=== PATIENT | male | born 1985 | race Caucasian/White ===

== ENCOUNTER → 2020-08-13 15:19 | Outpatient (BNVA) | payer OTHER, SELFPAY | PROVIDERS: PCP Nurse Practitioner Family; Visit Provider Nurse Practitioner Family | DX: Z95.2 Presence of prosthetic heart valve (principal); Z51.81 Encounter for therapeutic drug level monitoring; Z79.01 Long term (current) use of anticoagulants | CPT/HCPCS: 85610; 99212 ==

== ENCOUNTER → 2020-08-27 15:27 | Outpatient (BNVA) | payer OTHER, SELFPAY | PROVIDERS: PCP Family Medicine; Visit Provider Internal Medicine | DX: Z95.2 Presence of prosthetic heart valve (principal); Z51.81 Encounter for therapeutic drug level monitoring; Z79.01 Long term (current) use of anticoagulants | CPT/HCPCS: 85610; 99211 ==

== ENCOUNTER → 2020-09-17 15:51 | Outpatient (BNVA) | payer OTHER, SELFPAY | PROVIDERS: PCP Nurse Practitioner Family; Visit Provider Internal Medicine | DX: Z95.2 Presence of prosthetic heart valve (principal); Z51.81 Encounter for therapeutic drug level monitoring; Z79.01 Long term (current) use of anticoagulants | CPT/HCPCS: 85610; 99211 ==

== ENCOUNTER → 2020-10-08 16:06 | Outpatient (BNVA) | payer OTHER, SELFPAY | PROVIDERS: PCP Nurse Practitioner Family; Visit Provider Internal Medicine | DX: Z95.2 Presence of prosthetic heart valve (principal); Z51.81 Encounter for therapeutic drug level monitoring; Z79.01 Long term (current) use of anticoagulants | CPT/HCPCS: 85610; 99211 ==

== ENCOUNTER → 2020-10-22 15:44 | Outpatient (BNVA) | payer OTHER, SELFPAY | PROVIDERS: PCP Nurse Practitioner Family; Visit Provider Internal Medicine | DX: Z95.2 Presence of prosthetic heart valve (principal); Z51.81 Encounter for therapeutic drug level monitoring; Z79.01 Long term (current) use of anticoagulants | CPT/HCPCS: 85610; 99211 ==

== ENCOUNTER → 2020-10-29 16:03 | Outpatient (BNVA) | payer OTHER, SELFPAY | PROVIDERS: PCP Nurse Practitioner Family; Visit Provider Internal Medicine | DX: Z95.2 Presence of prosthetic heart valve (principal); Z79.01 Long term (current) use of anticoagulants; Z51.81 Encounter for therapeutic drug level monitoring | CPT/HCPCS: 85610; 99211 ==

== ENCOUNTER → 2020-10-30 14:05 | Outpatient (BNVA) | payer OTHER, SELFPAY | PROVIDERS: PCP Nurse Practitioner Family; Visit Provider Internal Medicine | DX: Z95.2 Presence of prosthetic heart valve (principal); Z79.01 Long term (current) use of anticoagulants; Z51.81 Encounter for therapeutic drug level monitoring | CPT/HCPCS: 85610; 99211 ==

== ENCOUNTER → 2020-11-04 16:10 | Outpatient (BNVA) | payer OTHER, SELFPAY | PROVIDERS: PCP Nurse Practitioner Family; Visit Provider Internal Medicine | DX: Z95.2 Presence of prosthetic heart valve (principal); Z51.81 Encounter for therapeutic drug level monitoring; Z79.01 Long term (current) use of anticoagulants | CPT/HCPCS: 85610; 99211 ==

== ENCOUNTER → 2020-11-06 15:34 | Outpatient (BNVA) | payer OTHER, SELFPAY | PROVIDERS: PCP Nurse Practitioner Family; Visit Provider Internal Medicine | DX: Z95.2 Presence of prosthetic heart valve (principal); Z51.81 Encounter for therapeutic drug level monitoring; Z79.01 Long term (current) use of anticoagulants | CPT/HCPCS: 85610; 99211 ==

== ENCOUNTER → 2020-11-10 15:48 | Outpatient (BNVA) | payer OTHER, SELFPAY | PROVIDERS: PCP Nurse Practitioner Family; Visit Provider Internal Medicine | DX: Z95.2 Presence of prosthetic heart valve (principal); Z51.81 Encounter for therapeutic drug level monitoring; Z79.01 Long term (current) use of anticoagulants | CPT/HCPCS: 85610; 99211 ==

== ENCOUNTER → 2020-11-13 14:35 | Outpatient (BNVA) | payer OTHER, SELFPAY | PROVIDERS: PCP Nurse Practitioner Family; Visit Provider Internal Medicine | DX: Z95.2 Presence of prosthetic heart valve (principal); Z79.01 Long term (current) use of anticoagulants; Z51.81 Encounter for therapeutic drug level monitoring | CPT/HCPCS: 85610; 99211 ==

== ENCOUNTER → 2020-11-19 15:38 | Outpatient (BNVA) | payer OTHER, SELFPAY | PROVIDERS: PCP Nurse Practitioner Family; Visit Provider Internal Medicine | DX: Z95.2 Presence of prosthetic heart valve (principal); Z51.81 Encounter for therapeutic drug level monitoring; Z79.01 Long term (current) use of anticoagulants | CPT/HCPCS: 85610; 99211 ==

== ENCOUNTER → 2020-12-03 15:11 | Outpatient (BNVA) | payer OTHER, SELFPAY | PROVIDERS: PCP Nurse Practitioner Family; Visit Provider Internal Medicine | DX: Z95.2 Presence of prosthetic heart valve (principal); Z51.81 Encounter for therapeutic drug level monitoring; Z79.01 Long term (current) use of anticoagulants | CPT/HCPCS: 85610; 99211 ==

== ENCOUNTER → 2020-12-25 15:37 | Outpatient (BNVA) | payer OTHER, SELFPAY | PROVIDERS: PCP Nurse Practitioner Family; Visit Provider Internal Medicine | DX: Z95.2 Presence of prosthetic heart valve (principal); Z51.81 Encounter for therapeutic drug level monitoring; Z79.01 Long term (current) use of anticoagulants | CPT/HCPCS: 85610; 99211 ==

== ENCOUNTER → 2021-01-12 15:37 | Outpatient (BNVA) | payer OTHER, SELFPAY | PROVIDERS: PCP Nurse Practitioner Family; Visit Provider Internal Medicine | DX: Z95.2 Presence of prosthetic heart valve (principal); Z51.81 Encounter for therapeutic drug level monitoring; Z79.01 Long term (current) use of anticoagulants | CPT/HCPCS: 85610; 99211 ==

== ENCOUNTER → 2021-01-28 16:09 | Outpatient (BNVA) | payer OTHER, SELFPAY | PROVIDERS: PCP Nurse Practitioner Family; Visit Provider Internal Medicine | DX: Z95.2 Presence of prosthetic heart valve (principal); Z51.81 Encounter for therapeutic drug level monitoring; Z79.01 Long term (current) use of anticoagulants | CPT/HCPCS: 85610; 99211 ==

== ENCOUNTER → 2021-02-11 15:46 | Outpatient (BNVA) | payer OTHER, SELFPAY | PROVIDERS: PCP Nurse Practitioner Family; Visit Provider Internal Medicine | DX: Z95.2 Presence of prosthetic heart valve (principal); Z51.81 Encounter for therapeutic drug level monitoring; Z79.01 Long term (current) use of anticoagulants | CPT/HCPCS: 85610; 99211 ==

== ENCOUNTER → 2021-02-25 15:45 | Outpatient (BNVA) | payer OTHER, SELFPAY | PROVIDERS: PCP Nurse Practitioner Family; Visit Provider Internal Medicine | DX: Z95.2 Presence of prosthetic heart valve (principal); Z79.01 Long term (current) use of anticoagulants; Z51.81 Encounter for therapeutic drug level monitoring | CPT/HCPCS: 85610; 99211 ==

== ENCOUNTER → 2021-03-12 15:45 | Outpatient (BNVA) | payer OTHER, SELFPAY | PROVIDERS: PCP Nurse Practitioner Family; Visit Provider Internal Medicine | DX: Z95.2 Presence of prosthetic heart valve (principal); Z79.01 Long term (current) use of anticoagulants; Z51.81 Encounter for therapeutic drug level monitoring | CPT/HCPCS: 85610; 99211 ==

== ENCOUNTER → 2021-03-17 16:24 | Outpatient (BNVA) | payer OTHER, SELFPAY | PROVIDERS: PCP Internal Medicine; Visit Provider Internal Medicine | DX: Z95.2 Presence of prosthetic heart valve (principal); Z51.81 Encounter for therapeutic drug level monitoring; Z79.01 Long term (current) use of anticoagulants | CPT/HCPCS: 85610; 99211 ==

== ENCOUNTER → 2021-03-26 15:48 | Outpatient (BNVA) | payer OTHER, SELFPAY | PROVIDERS: PCP Internal Medicine; Visit Provider Internal Medicine | DX: Z95.2 Presence of prosthetic heart valve (principal); Z51.81 Encounter for therapeutic drug level monitoring; Z79.01 Long term (current) use of anticoagulants | CPT/HCPCS: 85610; 99211 ==

== ENCOUNTER → 2021-04-08 15:12 | Outpatient (BNVA) | payer OTHER, SELFPAY | PROVIDERS: PCP Internal Medicine; Visit Provider Internal Medicine | DX: Z95.2 Presence of prosthetic heart valve (principal); Z51.81 Encounter for therapeutic drug level monitoring; Z79.01 Long term (current) use of anticoagulants | CPT/HCPCS: 85610; 99211 ==

== ENCOUNTER → 2021-04-22 16:12 | Outpatient (BNVA) | payer OTHER, SELFPAY | PROVIDERS: PCP Internal Medicine; Visit Provider Internal Medicine | DX: Z95.2 Presence of prosthetic heart valve (principal); Z51.81 Encounter for therapeutic drug level monitoring; Z79.01 Long term (current) use of anticoagulants | CPT/HCPCS: 85610; 99211 ==

== ENCOUNTER → 2021-05-06 16:08 | Outpatient (BNVA) | payer OTHER, SELFPAY | PROVIDERS: PCP Internal Medicine; Visit Provider Internal Medicine | DX: Z95.2 Presence of prosthetic heart valve (principal); Z51.81 Encounter for therapeutic drug level monitoring; Z79.01 Long term (current) use of anticoagulants | CPT/HCPCS: 85610; 99211 ==

== ENCOUNTER → 2021-05-13 15:51 | Outpatient (BNVA) | payer OTHER, SELFPAY | PROVIDERS: PCP Nurse Practitioner Family; Visit Provider Internal Medicine | DX: Z95.2 Presence of prosthetic heart valve (principal); Z51.81 Encounter for therapeutic drug level monitoring; Z79.01 Long term (current) use of anticoagulants | CPT/HCPCS: 85610; 99211 ==

== ENCOUNTER → 2021-05-20 15:59 | Outpatient (BNVA) | payer OTHER, SELFPAY | PROVIDERS: PCP Internal Medicine; Visit Provider Internal Medicine | DX: Z95.2 Presence of prosthetic heart valve (principal); Z51.81 Encounter for therapeutic drug level monitoring; Z79.01 Long term (current) use of anticoagulants | CPT/HCPCS: 85610; 99211 ==

== ENCOUNTER 2021-05-24 21:44 | Inpatient (IN) | payer OTHER, SELFPAY ==
--- NOTE | ~2021-05-24 | XR_ITS ---
EXAMINATION: XR SHOULDER, RIGHT CLINICAL INFORMATION: Fall. Deformity. Pain. COMPARISON: None TECHNIQUE: AP, Grashey, and scapular Y views of the right shoulder. FINDINGS: Acute, mildly displaced fracture of the greater tuberosity with a resultant fracture gap measuring up to 0.9 cm. The fracture contacts the periphery of the humeral head articular surface. No dislocation. No joint space narrowing or marginal osteophytes. No osseous erosion. No abnormal soft tissue calcification. XR/XR shoulder RT min 2V IMPRESSION: Mildly displaced proximal humeral fracture through the greater tuberosity.
--- NOTE | ~2021-05-24 | CT_ITS ---
EXAMINATION: CT SHOULDER WITHOUT CONTRAST, RIGHT CLINICAL INFORMATION: Humeral head fracture. COMPARISON: Right shoulder radiographs done earlier the same day. TECHNIQUE: Contiguous axial CT images of the right shoulder were obtained without contrast. Sagittal and coronal reformats were provided and reviewed. This CT examination was performed using dose optimization techniques as appropriate, variously including the following: *Automated exposure control *Adjustment of mA and/or kV according to patient size (this includes techniques or standardized protocols for targeted exams where dose is matched to indication/reason for exam; i.e. extremities or head) *Use of iterative reconstruction technique DLP: 352 mGy-cm FINDINGS: There is a comminuted humeral head fracture with a dominant oblique component through the greater tuberosity. The largest resultant fracture fragment measures up to 5.4 cm in craniocaudal dimension. There are multiple additional fracture fragments both along the ventral surface as well as the posterior surface. An additional oblique component is seen posteroinferiorly contacting the dorsal aspect of the humeral cortex. The superior most aspect of the fracture line contacts the peripheral humeral head articular surface. There is an additional, nondisplaced predominantly transverse fracture through the humeral neck. No dislocation. No joint space narrowing or marginal osteophytes. No osseous erosion. Os acromiale with mild degenerative change. Fxiow-fl-gllubsny glenohumeral joint effusion with adjacent soft tissue swelling. The muscles and tendons are grossly intact, however, evaluation is limited on CT examination. The visualized right lung is clear. CT/CT shoulder RT wo con IMPRESSION: 1. Comminuted humeral head fracture with a dominant oblique component through the greater tuberosity with multiple adjacent small fracture fragments. The superior aspect of the fracture line contacts the periphery of the humeral head articular surface. 2. Additional nondisplaced probably transverse fracture through the humeral neck. 3. Vvsrt-ju-piggqxqr glenohumeral joint effusion and surrounding soft tissue swelling. 4. Os acromiale.
[2021-05-24 21:57] VITALS: BP 148/100; BP 160/98; PULSE 101; PULSE 91; RESP 20; TEMP 36.5; O2SAT 98; BMI 28.7
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
[2021-05-24] MEDS: Ketorolac Tromethamine 15 MG/ML VIAL IM (22:03)
[2021-05-24] MEDS: Acetaminophen 325 MG TABLET 975 MG PO (22:03)
[2021-05-24 22:29] LABS: Basophils Percent Auto 0.2 % (0-2); Eosinophils Absolute Auto 0.1 X10*3/uL (0.0-0.4); Eosinophils Percent Auto 0.9 % (0-4); Hematocrit 44.9 % (42-52); Hemoglobin 14.2 g/dl (14.0-18.0); Imm Gran Abs Auto 0.02 X10*3/uL (0.00-0.03); Imm Gran Pct Auto 0.3 % (0.0-0.4); Lymphocytes Absolute Auto 1.5 X10*3/uL (1.2-4.9); Lymphocytes Percent Auto 23.1 % (20-40); MANUAL DIFF FLAG NO; Mean Corpuscular HGB Conc 31.6 g/dl (31.0-36.0); Mean Corpuscular Hemoglobin 26.3 pg (27.0-33.0); Mean Corpuscular Volume 83.1 fL (80-98); Mean Platelet Volume 11.1 fL (9.4-12.4); Monocytes Absolute Auto 0.7 X10*3/uL (0.1-1.2); Monocytes Percent Auto 11.3 % (2-11); Neutrophils Absolute Auto 4.2 X10*3/uL (2.0-8.3); Neutrophils Percent Auto 64.2 % (45-73); Platelet Count 297 X10*3/uL (160-400); Red Cell Distribution Width 14.3 % (11.0-16.0); White Blood Count 6.6 X10*3/uL (4.8-10.8)
[2021-05-24 22:35] LABS: INTERNATIONAL NORM RATIO 2.5 (0.9-1.1)
[2021-05-24 23:01] LABS: Alanine Aminotransferase 89 U/L (0-40); Albumin Level 4.4 g/dL (3.5-5.0); Alkaline Phosphatase 104 U/L (39-117); Anion Gap 13 (12-20); Aspartate Amino Transferase 62 U/L (5-37); Bilirubin Total 0.4 mg/dL (0.0-1.0); Blood Urea Nitrogen 13 mg/dL (9-16); Calcium 9.4 mg/dL (8.4-10.2); Carbon Dioxide 28 mmol/L (22-29); Chloride 103 mmol/L (96-108); Creatinine Clr Calc Pharmacy 136.1; Estimated Glomerular Filt Rate > 60; Glucose Random 126 mg/dL (60-115); Potassium 3.7 mmol/L (3.3-5.1); Sodium 140 mmol/L (135-145); Total Protein 7.9 g/dL (6.5-8.0)
--- NOTE | 2021-05-24 23:22 | PC.NURSE ---
PT GUARDING HIS RIGHT ARM, UPPER ARM AND SHOULDER PAIN. PT HAS ABRASIONS ON RIGHT CHEST. PT DENIES STRIKING HIS HEAD. PT IS TAKING COUMADIN FOR A VALVE REPLACEMENT. MD INFORMED PT OF THE FRACTURE, AND PLANS FOR ADMISSION.
[2021-05-24] MEDS: hydrOXYzine HCL 25 MG TABLET PO (23:36)
[2021-05-24 23:54] LABS: COVID-19 Test Negative (Negative)
[2021-05-25] VITALS (8 sets, daily range): BP systolic 115–151; BP diastolic 62–88; PULSE 73–92; RESP 14–19; TEMP 35.9–36.4; O2SAT 95–100; BMI 30.8
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
[2021-05-25] MEDS: Buprenorphine/Naloxone 4/1 mg FILM 1 FILM SUBLINGUAL ×3 (02:18→20:26)
--- NOTE | 2021-05-25 02:23 | PC.NURSE ---
pt has order for regular diet, pt had 2 donuts and orange juice.
--- NOTE | 2021-05-25 04:05 | PC.NURSE ---
pt tore suboxone dose in half, wanted to save the other hald for bedtime. pt transported upstairs. pt then reports that he can't find the other half. checked pt's er room and trash, foil package not located.
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
[2021-05-25] MEDS: Ketorolac Tromethamine 15 MG/ML VIAL IVPUSH (05:40)
[2021-05-25 07:52] LABS: INTERNATIONAL NORM RATIO 2.7 (0.9-1.1); Prothrombin Time 31.5 SEC (9.9-13.0)
--- NOTE | 2021-05-25 08:26 | P.PNOP_ITS ---
Subjective Subjective Interval history: Patient is s/p right shoulder proximal humerus fracture. He is resting comfortably in bed. No overnight events. Pain is managed. Physical Exam Vital Signs: Vital Signs: Last Vital Signs Temp 97.5 F 05/25/21 07:12 Pulse 86 05/25/21 07:12 Resp 17 05/25/21 07:12 BP 134/62 05/25/21 07:12 Pulse Ox 96 05/25/21 07:12 Body Mass Index 30.8 Const: General: cooperative, healthy appearing and no acute distress Resp: Effort & Inspection: normal respiratory effort and able to speak in complete sentences Cardio: Rate: regular rate Peripheral pulses: Peripheral pulses 2+ throughout GI: Palpation (GI): Soft to palpation Skin: Lesions: no lesions Rashes: no rashes Extrem: Other: Right upper extremity able to flex and extend elbow, wrist, and digits. Able to abduct, adduct, finger cross, ok sign, and thumbs up without difficulties. Radial pulse intact. Sensation intact. Progress Note: A&P Assessment and plan (1) Fracture of proximal end of humerus: Status: Acute Assessment and Plan: s/p right shoulder proximal humerus fracture Manage conservatively with sling. Will see in our office as out patient and cleared for d/c from ortho prospective. Fall Risk Details Current Medications: Current Medications Generic Name Dose Route Start Last Admin Trade Name Freq PRN Reason Stop Dose Admin Acetaminophen 650 mg 05/25/21 00:57 Acetaminophen 325 Mg Tablet PO Q6H PRN Pain, Mild (Pain Scale 1-3) Buprenorphine/Naloxone 1 film 05/25/21 01:15 05/25/21 02:18 Buprenorphine/Naloxone 4/1 Mg Film SUBLINGUAL 1 film BID [facility] Administration Docusate Sodium 100 mg 05/25/21 00:57 Docusate Sodium 100 Mg Capsule PO DAILY PRN Constipation Fluticasone Propionate 1 spray 05/25/21 09:00 Fluticasone Propionate Nasal 16 Gm [place] NOSTRIL-B BID [facility] Hydroxyzine HCl 25 mg 05/25/21 00:47 Hydroxyzine Hcl 25 Mg Tablet PO TID PRN anxiety Ondansetron HCl 4 mg 05/25/21 00:57 Ondansetron Hcl 4 Mg/2 Ml Vial IVPUSH Q8H PRN Nausea and Vomiting Sodium Chloride 3 ml 05/25/21 08:00 0.9 % Sodium Chloride Flush 3 Ml Syringe IVFLUSH QSHIFT [facility] Trazodone HCl 50 mg 05/25/21 21:00 Trazodone Hcl 50 Mg Tablet PO BEDTIME [facility] Venlafaxine HCl 75 mg 05/25/21 09:00 Venlafaxine Hcl Er 75 Mg Cap.Er.24h PO DAILY [facility] Vitamin D 50 mcg 05/25/21 09:00 Cholecalciferol (Vitamin D3) 25 Mcg Tablet PO DAILY [facility] Warfarin Sodium 7.5 mg 05/25/21 18:00 Warfarin Sodium 7.5 Mg Tablet PO DAILY@1800 [facility] Time Spent With Patient Time: Total time spent is greater than 50% in coordination of care (as documented) at patient's floor/unit and/or counseling patient: Time with patient: less than 15 minutes Procedures Date of Service Date of Service: 05/26/21 Quality Stroke Does the patient have a stroke diagnosis?: No VTE Prior VTE?: No VTE Risk Level:: Medical - moderate - high VTE Device Contraindication: Treatment Not Indicated VTE Drug Contraindication: N/A - Med Ordered
[2021-05-25] MEDS: Cholecalciferol (Vitamin D3) 25 MCG TABLET 50 MCG PO (09:04)
[2021-05-25] MEDS: 0.9 % Sodium Chloride Flush 3 ML SYRINGE IVFLUSH (09:04)
[2021-05-25] MEDS: hydrOXYzine HCL 25 MG TABLET PO (09:04)
[2021-05-25] MEDS: Acetaminophen 325 MG TABLET 650 MG PO ×2 (09:05→20:26)
[2021-05-25] MEDS: Venlafaxine HCl ER 75 MG CAP.ER.24H PO (09:08)
[2021-05-25] MEDS: HYDROmorphone HCl 1 MG/ML SYRINGE IVPUSH ×2 (10:21→18:29)
--- NOTE | 2021-05-25 10:21 | MHC.RECOVRN ---
T/w met with pt in 370 to discuss pain management while on Suboxone. Pt reports last dose of Suboxone at 2 am, 3/4 of a 4 mg film. Prior to that, pt had taken 4 mg at 1600 on 05/25. Pt reports being prescribed Suboxone for 7-8 years. Pt reports being prescribed 8 mg daily (taken as 4 mg in am, 2 mg at dinner, 2 mg at bedtime) and taking it consistently. Pt concerned about precipitated withdrawal. T/w assured pt that since he has been taking his Suboxone consistently, precipitated withdrawal would not occur. Case discussed with Mariya Gandhi APRN.
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
--- NOTE | 2021-05-25 12:30 | MHC.CM.PN ---
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 PT REPORTS HE DOES NOT CURRENTLY HAVE SERVICES OTHER THAN A [facility]. PT DOES NOT HAVE A HCP. HE DID NOT WANT TO COMPLETE ONE TODAY BUT DID ASK FOR MORE INFORMATION. INFO AND DOCUMENT PROVIDED. PT CONFIRMS HIS PCP IS PACHECO HUNG. IMM DELIVERED CURRENTLY DC PLAN IS STILL TBD BY PT EVAL TRANSPORTATION TBD BY DISPO
--- NOTE | 2021-05-25 14:45 | PM.EVENT ---
Event Note Date of Service: 05/25/21 Event Note: Right proximal humerus fracture. No surgical intervention needed at this time. Will manage out patient conservatively. Formal note to follow.
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
[2021-05-25] MEDS: Warfarin Sodium 7.5 MG TABLET PO (17:52)
[2021-05-25] MEDS: ondansetron HCL 4 MG/2 ML VIAL IVPUSH (17:52)
[2021-05-25] MEDS: Fluticasone Propionate Nasal 16 GM SPRAY 1 SPRAY NOSTRIL-B (20:26)
[2021-05-25] MEDS: traZODone HCL 50 MG TABLET PO (20:26)
[2021-05-26] MEDS: 0.9 % Sodium Chloride Flush 3 ML SYRINGE IVFLUSH ×3 (01:17→17:43)
[2021-05-26] MEDS: HYDROmorphone HCl 1 MG/ML SYRINGE IVPUSH ×3 (02:48→17:35)
[2021-05-26] MEDS: ondansetron HCL 4 MG/2 ML VIAL IVPUSH ×2 (02:54→17:35)
[2021-05-26 04:00] VITALS: BP 123/66; PULSE 83; RESP 16; TEMP 36.7; O2SAT 95
[2021-05-26] MEDS: Acetaminophen 325 MG TABLET 650 MG PO ×2 (04:22→17:35)
[2021-05-26 07:21] VITALS: BP 144/89; PULSE 77; RESP 17; TEMP 36.2; O2SAT 95
[2021-05-26] MEDS: Buprenorphine/Naloxone 4/1 mg FILM 1 FILM SUBLINGUAL (07:53)
[2021-05-26] MEDS: Venlafaxine HCl ER 75 MG CAP.ER.24H PO (07:53)
[2021-05-26] MEDS: Cholecalciferol (Vitamin D3) 25 MCG TABLET 50 MCG PO (07:54)
--- NOTE | 2021-05-26 07:59 | PM.PNORT ---
Subjective Subjective Date of Service: 05/26/21 Interval history: Patient is s/p right shoulder proximal humerus fracture. He is resting comfortably in bed asleep. No overnight events. Pain is managed. Physical Exam Vital Signs: Vital Signs: Last Vital Signs Temp 97.1 F 05/26/21 07:21 Pulse 77 05/26/21 07:21 Resp 17 05/26/21 07:21 BP 144/89 H 05/26/21 07:21 Pulse Ox 95 05/26/21 07:21 Body Mass Index 30.8 Const: General: cooperative and no acute distress Orientation/consciousness: patient oriented x3 Resp: Effort & Inspection: normal respiratory effort and able to speak in complete sentences Cardio: Peripheral pulses: Peripheral pulses 2+ throughout Skin: General skin exam: no rashes or lesions noted Neuro: General: patient oriented x3 Progress Note: A&P Assessment and plan (1) Fracture of proximal end of humerus: Status: Acute Assessment and Plan: s/p right shoulder proximal humerus fracture Manage conservatively with abduction sling that patient will be placed in prior to discharge. Will see in our office as out patient and cleared for d/c from ortho prospective. Anticipate d/c today Fall Risk Details Current Medications: Current Medications Generic Name Dose Route Start Last Admin Trade Name Freq PRN Reason Stop Dose Admin Acetaminophen 650 mg 05/25/21 00:57 05/26/21 04:22 Acetaminophen 325 Mg Tablet PO 650 mg Q6H PRN Administration Pain, Mild (Pain Scale 1-3) Albuterol Sulfate 2 puff 05/25/21 12:19 Albuterol Sulfate 90 Mcg 8 Gm Inhaler INHALE Q2H PRN Dyspnea Buprenorphine/Naloxone 1 film 05/25/21 01:15 05/26/21 07:53 Buprenorphine/Naloxone 4/1 Mg Film SUBLINGUAL 1 film BID KERI Administration Docusate Sodium 100 mg 05/25/21 00:57 Docusate Sodium 100 Mg Capsule PO DAILY PRN Constipation Fluticasone Propionate 1 spray 05/25/21 09:00 05/25/21 20:26 Fluticasone Propionate Nasal 16 Gm [place] NOSTRIL-B 1 spray BID KERI Administration Hydromorphone HCl 1 mg 05/25/21 09:19 05/26/21 06:58 Hydromorphone Hcl 1 Mg/Ml Syringe IVPUSH 1 mg Q4H PRN Administration Pain, Severe (Pain Scale 7-10) Hydroxyzine HCl 25 mg 05/25/21 00:47 05/25/21 09:04 Hydroxyzine Hcl 25 Mg Tablet PO 25 mg TID PRN Administration anxiety Ondansetron HCl 4 mg 05/25/21 00:57 05/26/21 02:54 Ondansetron Hcl 4 Mg/2 Ml Vial IVPUSH 4 mg Q8H PRN Administration Nausea and Vomiting Sodium Chloride 3 ml 05/25/21 08:00 05/26/21 07:02 0.9 % Sodium Chloride Flush 3 Ml Syringe IVFLUSH 3 ml QSHIFT KERI Administration Trazodone HCl 50 mg 05/25/21 21:00 05/25/21 20:26 Trazodone Hcl 50 Mg Tablet PO 50 mg BEDTIME KERI Administration Venlafaxine HCl 75 mg 05/25/21 09:00 05/26/21 07:53 Venlafaxine Hcl Er 75 Mg Cap.Er.24h PO 75 mg DAILY KERI Administration Vitamin D 50 mcg 05/25/21 09:00 05/26/21 07:54 Cholecalciferol (Vitamin D3) 25 Mcg Tablet PO 50 mcg DAILY KERI Administration Warfarin Sodium 7.5 mg 05/25/21 18:00 05/25/21 17:52 Warfarin Sodium 7.5 Mg Tablet PO 7.5 mg SuMoTuThSa KERI Administration Warfarin Sodium 5 mg 05/27/21 12:38 Warfarin Sodium 5 Mg Tablet PO WEFR [facility] Time Spent With Patient Time: Total time spent is greater than 50% in coordination of care (as documented) at patient's floor/unit and/or counseling patient: Time with patient: less than 15 minutes Procedures Date of Service Date of Service: 05/26/21 Quality Stroke Does the patient have a stroke diagnosis?: No VTE Prior VTE?: No VTE Risk Level:: Medical - moderate - high VTE Device Contraindication: Treatment Not Indicated VTE Drug Contraindication: N/A - Med Ordered
[2021-05-26 08:24] LABS: MANUAL DIFF FLAG NO
[2021-05-26 08:27] LABS: Basophils Percent Auto 0.2 % (0-2); Eosinophils Absolute Auto 0.1 X10*3/uL (0.0-0.4); Eosinophils Percent Auto 1.1 % (0-4); Hematocrit 40.6 % (42-52); Hemoglobin 12.9 g/dl (14.0-18.0); Imm Gran Abs Auto 0.01 X10*3/uL (0.00-0.03); Imm Gran Pct Auto 0.2 % (0.0-0.4); Lymphocytes Percent Auto 15.7 % (20-40); Mean Corpuscular HGB Conc 31.8 g/dl (31.0-36.0); Mean Corpuscular Hemoglobin 26.5 pg (27.0-33.0); Mean Corpuscular Volume 83.4 fL (80-98); Mean Platelet Volume 11.3 fL (9.4-12.4); Monocytes Absolute Auto 0.8 X10*3/uL (0.1-1.2); Monocytes Percent Auto 12.4 % (2-11); Neutrophils Absolute Auto 4.3 X10*3/uL (2.0-8.3); Neutrophils Percent Auto 70.4 % (45-73); Platelet Count 257 X10*3/uL (160-400); Red Blood Count 4.87 X10*6/uL (4.60-5.80); Red Cell Distribution Width 14.3 % (11.0-16.0); White Blood Count 6.1 X10*3/uL (4.8-10.8)
[2021-05-26 08:33] LABS: INTERNATIONAL NORM RATIO 3.3 (0.9-1.1); Prothrombin Time 38.3 SEC (9.9-13.0)
[2021-05-26 08:50] LABS: Anion Gap 12 (12-20); Blood Urea Nitrogen 14 mg/dL (9-16); Carbon Dioxide 27 mmol/L (22-29); Chloride 102 mmol/L (96-108); Creatinine Clr Calc Pharmacy 169.7; Estimated Glomerular Filt Rate > 60; Glucose Random 101 mg/dL (60-115); Potassium 4.3 mmol/L (3.3-5.1); Sodium 137 mmol/L (135-145)
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
--- NOTE | 2021-05-26 09:00 | MHC.RECOVRN ---
T/w met with pt to sign JOSE MIGUEL for [employer] on [address] in [place] in order for t/w to update as far as pts admission and d/c plans. Pt planned d/c today, hospitalist to send oxycodone script x 4 days. T/w left message with Radha, awaiting call back.
--- NOTE | 2021-05-26 09:04 | MHC.CM.PN ---
PT DISCHARGING HOME SELF-CARE W/FOLLOW-UP W/DR [place] IN ONE WEEK & PRN OXYCODONE FOR PAIN, FAMILY FOR TRANSPORT
[2021-05-26 12:00] VITALS: BP 125/66; PULSE 78; RESP 18; TEMP 36.7; O2SAT 96
[2021-05-26 15:14] VITALS: BP 149/79; PULSE 83; RESP 14; TEMP 35.9; O2SAT 95
== END 2021-05-26 18:30 | disposition home or self-care (01) | DRG 563 ==
LOC: HO.ED 23:31 → HO.EDOVER 05-25 01:10 → HO.S3 05-25 03:19
PROVIDERS: Admitting Provider Internal Medicine; Emergency Provider Student in an Organized Health Care Education/Training Program; PCP Internal Medicine; Visit Provider Internal Medicine
DX: S42.251A Displaced fracture of greater tuberosity of right humerus, initial encounter for closed fracture (principal); F11.20 Opioid dependence, uncomplicated; F17.210 Nicotine dependence, cigarettes, uncomplicated; Z71.6 Tobacco abuse counseling; Z95.2 Presence of prosthetic heart valve; V19.9XXA Pedal cyclist (driver) (passenger) injured in unspecified traffic accident, initial encounter; Y93.9 Activity, unspecified; Y92.9 Unspecified place or not applicable; Y99.9 Unspecified external cause status; Z20.822 Contact with and (suspected) exposure to COVID-19; Z79.01 Long term (current) use of anticoagulants; Z79.51 Long term (current) use of inhaled steroids; Z79.899 Other long term (current) drug therapy
CPT/HCPCS: 36415; 73030; 73200; 80048; 80053; 85025; 85610; 87635; 99218; 99285; J1170; J1885; J2405

== ENCOUNTER 2021-06-02 13:09 | Outpatient (REF) | payer OTHER, SELFPAY ==
--- NOTE | ~2021-06-02 | XR_ITS ---
EXAMINATION: XR SHOULDER, RIGHT CLINICAL INFORMATION: Right shoulder COMPARISON: 05/24/2021 TECHNIQUE: Two views of the right shoulder. FINDINGS: I do not appreciate a significant change in alignment of the comminuted right proximal humeral fracture with dominant fracture fragment of the greater tuberosity. No definite periosteal new bone formation is identified and fracture lines are still evident. No dislocation is seen. No significant abnormality of the acromioclavicular joint is noted. XR/XR shoulder RT min 2V IMPRESSION: No significant change in alignment of right proximal humeral fracture.
== END 2021-06-02 13:10 | disposition home or self-care (01) ==
LOC: HO.HOSX 13:09
PROVIDERS: Visit Provider Physician Assistant
DX: S42.201A Unspecified fracture of upper end of right humerus, initial encounter for closed fracture (principal)
CPT/HCPCS: 73030; 99202

== ENCOUNTER → 2021-06-04 14:59 | Outpatient (BNVA) | payer OTHER, SELFPAY | PROVIDERS: Visit Provider Internal Medicine | DX: Z95.2 Presence of prosthetic heart valve (principal); Z51.81 Encounter for therapeutic drug level monitoring; Z79.01 Long term (current) use of anticoagulants | CPT/HCPCS: 85610; 99211 ==

== ENCOUNTER 2021-06-23 07:54 | Outpatient (REF) | payer OTHER, SELFPAY | END 2021-06-23 07:55 | disposition home or self-care (01) | LOC: HO.HOSX 07:54 | PROVIDERS: Visit Provider Physician Assistant | DX: Z13.89 Encounter for screening for other disorder (principal) ==

== ENCOUNTER 2021-06-26 07:20 | Outpatient (REF) | payer OTHER, SELFPAY ==
--- NOTE | ~2021-06-26 | XR_ITS ---
EXAMINATION: XR SHOULDER, RIGHT CLINICAL INFORMATION: Fracture. COMPARISON: 06/02/2021 and 05/24/2021. CT scan of 05/24/21. TECHNIQUE: Two views of the right shoulder. FINDINGS: Fracture of the greater tuberosity and humeral neck is again demonstrated. Mild displacement of the greater tuberosity is unchanged. Alignment across the humeral neck remains anatomic. There is no definite visible callus. XR/XR shoulder RT min 2V IMPRESSION: Stable appearance of mildly displaced fracture proximal right humerus.
== END 2021-06-26 07:21 | disposition home or self-care (01) ==
LOC: HO.HOSX 07:20
PROVIDERS: Visit Provider Physician Assistant
DX: S42.201A Unspecified fracture of upper end of right humerus, initial encounter for closed fracture (principal)
CPT/HCPCS: 73030; 99212

== ENCOUNTER → 2021-07-08 08:08 | Outpatient (BNVA) | payer OTHER, SELFPAY | PROVIDERS: Visit Provider Internal Medicine | DX: Z95.2 Presence of prosthetic heart valve (principal); Z51.81 Encounter for therapeutic drug level monitoring; Z79.01 Long term (current) use of anticoagulants | CPT/HCPCS: 85610; 99211 ==

== ENCOUNTER → 2021-07-09 16:23 | Outpatient (BNVA) | payer OTHER, SELFPAY | PROVIDERS: Visit Provider Internal Medicine | DX: Z95.2 Presence of prosthetic heart valve (principal); Z51.81 Encounter for therapeutic drug level monitoring; Z79.01 Long term (current) use of anticoagulants | CPT/HCPCS: 85610; 99211 ==

== ENCOUNTER → 2021-07-15 16:01 | Outpatient (BNVA) | payer OTHER, SELFPAY | PROVIDERS: PCP Nurse Practitioner Family; Visit Provider Internal Medicine | DX: Z95.2 Presence of prosthetic heart valve (principal); Z51.81 Encounter for therapeutic drug level monitoring; Z79.01 Long term (current) use of anticoagulants | CPT/HCPCS: 85610; 99211 ==

== ENCOUNTER 2021-07-27 07:13 | Outpatient (REF) | payer OTHER, SELFPAY ==
--- NOTE | ~2021-07-27 | XR_ITS ---
EXAMINATION: XR SHOULDER, RIGHT CLINICAL INFORMATION: Pain. COMPARISON: Right shoulder radiographs dated 06/26/2021. TECHNIQUE: Grashey and scapular Y views of the right shoulder. FINDINGS: Proximal humeral fracture in unchanged anatomic alignment with mild new bone/callus formation. Tiny acromioclavicular marginal osteophytes. No osseous erosion. No abnormal soft tissue calcification. Sternal wires, mediastinal surgical clips, and valvuloplasty. XR/XR shoulder RT min 2V IMPRESSION: Proximal humeral fracture in unchanged anatomic alignment with mild new bone/callus formation. Mild acromioclavicular osteoarthritis, unchanged.
== END 2021-07-27 07:14 | disposition home or self-care (01) ==
LOC: HO.HOSX 07:13
PROVIDERS: Visit Provider Physician Assistant
DX: S42.201D Unspecified fracture of upper end of right humerus, subsequent encounter for fracture with routine healing (principal); Z95.2 Presence of prosthetic heart valve; Z79.01 Long term (current) use of anticoagulants
CPT/HCPCS: 73030; 99212

== ENCOUNTER → 2021-07-31 15:38 | Outpatient (BNVA) | payer OTHER, SELFPAY | PROVIDERS: PCP Nurse Practitioner Family; Visit Provider Internal Medicine | DX: Z95.2 Presence of prosthetic heart valve (principal); Z51.81 Encounter for therapeutic drug level monitoring; Z79.01 Long term (current) use of anticoagulants | CPT/HCPCS: 85610; 99211 ==

== ENCOUNTER 2021-09-07 07:07 | Outpatient (REF) | payer OTHER, SELFPAY | END 2021-09-07 07:08 | disposition home or self-care (01) | LOC: HO.HOSX 07:07 | PROVIDERS: Visit Provider Physician Assistant | DX: Z13.89 Encounter for screening for other disorder (principal) ==

== ENCOUNTER 2021-11-06 20:37 | Emergency (ER) | payer OTHER, SELFPAY ==
[2021-11-06 21:09] LABS: COVID-19 Test Positive (Negative)
[2021-11-06 21:34] VITALS: BP 151/88; PULSE 94; RESP 15; TEMP 37.2; O2SAT 100; BMI 39.1
--- NOTE | 2021-11-06 21:49 | ED.GENADULT ---
HPI - General Adult General Chief complaint: Upper Respiratory Symptoms Stated complaint: Covid symptoms Time Seen by Provider: 11/06/21 21:44 Source: patient Mode of arrival: ambulatory Limitations: no limitations History of Present Illness HPI narrative: Patient comes to emergency room complaining of cough, body aches, 1 episode of vomiting, no diarrhea, no fever, no chest pain or shortness of breath all of his symptoms started yesterday. Related Data Home Medications Medication Instructions Recorded Confirmed buprenorphine 8 mg-naloxone 2 mg 1 film SUBLINGUAL DAILY 11/13/20 07/09/21 sublingual film albuterol sulfate 90 mcg/actuation 2 puff INHALATION NEEDED PRN 02/11/21 07/09/21 aerosol inhaler cholecalciferol (vitamin D3) 50 50 mcg PO DAILY 02/11/21 07/09/21 mcg (2,000 unit) tablet fluticasone propionate 50 1 spray INTRANASAL BID 02/11/21 07/09/21 mcg/actuation nasal spray,suspension hydroxyzine pamoate 25 mg capsule 25 mg PO TID PRN 02/11/21 07/09/21 naloxone 4 mg/actuation nasal spray 4 mg INTRANASAL DAILY PRN 02/11/21 07/09/21 trazodone 50 mg tablet 50 mg PO BEDTIME 02/11/21 07/09/21 venlafaxine 75 mg capsule,extended 75 mg PO DAILY 02/11/21 07/09/21 release 24 hr warfarin 5 mg tablet 5 mg PO WEFR 05/25/21 07/31/21 warfarin 7.5 mg tablet 7.5 mg PO SUMOTUTHSA 05/25/21 07/31/21 Previous Rx's Medication Instructions Recorded oxycodone 5 mg tablet 5 mg PO DAILY PRN 7 Days #7 tab 07/06/21 celecoxib 200 mg capsule 200 mg PO BID #180 cap 07/30/21 ibuprofen 600 mg tablet 600 mg PO QID PRN #20 tab 11/06/21 ondansetron HCl 4 mg tablet 4 mg PO Q6H PRN #10 tab 11/06/21 (Zofran) Allergies Allergy/AdvReac Type Severity Reaction Status Date / Time hydrocodone [From VICODIN] Allergy Unknown GI UPSET Verified 07/31/21 15:40 Review of Systems Review of Systems: Constitutional : No Weight loss, No Fever, No Chills, No Night Sweats, complaining of fatigue and generalized malaise ENT/Mouth : No Hearing loss, No Ear Pain, No Nasal Congestion, No Sinus Pain, No Hoarseness, complaining of sore throat, No Rhinorrhea, No Swallowing Difficulty Eyes: No Eye Pain, No Swelling, No Redness, No Foreign Body, No Discharge, No Vision Changes Cardiovascular : No Chest Pain, No SOB, No Dyspnea on Exertion, No Orthopnea, No Edema, No Palpitations Respiratory : No Cough, No Sputum, No Wheezing, No Smoke Exposure, No Dyspnea Gastrointestinal : Complaining of nausea vomiting, No Diarrhea, No Constipation, No abdominal Pain, No Hematochezia, No Melena Genitourinary : no irregular bleeding, No Dysuria, No Urinary Frequency, No Hematuria, No Urinary Incontinence, No Urgency, No Flank Pain, No Urinary Flow Changes, No Hesitancy Musculoskeletal : No joint pain, No Myalgias, No Joint Swelling Skin : No Skin Lesions, No rash Neuro : No Weakness, No Numbness, No Paresthesias, No Loss of Consciousness, No Dizziness, No Headache Psych : No Anxiety/Panic, No Depression, No SI/HI/AH/VH, No Social Issues, Heme/Lymph: No Bruising, No Bleeding,No Lymphadenopathy Endocrine : No Polyuria, No Polydipsia, No Temperature Intolerance [facility] Past Medical History Medical History Asthma Current use of anticoagulant therapy Opioid use disorder Surgical History Heart valve replaced History of heart valve replacement with mechanical valve Presence of other heart-valve replacement Social History Social History (Updated 07/27/21 @ 13:06 by Carlos Cuevas) Household Members: Family Housing: House Do you presently have visiting nurse or other home services: Yes Patient Tobacco Use Status: Current everyday Tobacco user Tobacco use type: Cigarette Cigarettes Per Day: 5 Substance Use Type: Marijuana Advance Directives: No service: No Current occupational status: unemployed 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 Oriented X3. No acute distress. Well-appearing Eyes: Pupils equal, round and reactive to light. ENT: Pharynx normal. Neck: Normal inspection. Neck supple. No lymph nodes noted. No crepitus CVS: Normal heart rate and rhythm. Pulses normal. Normal S1 and S2 Respiratory: No respiratory distress. Breath sounds normal. No Wheezing. No rales Abdomen: Soft and nontender. No rigidity. No distention. Skin: Skin warm and dry. Normal skin color. Normal skin turgor. Extremities: No lower extremity edema. No Lacerations. No Rash Neuro: Oriented X 3. No motor deficit. No sensory deficit. Moving all extermities. No slurred speech. Course Course Course Narrative: I discussed with the patient he tested positive for COVID-19. Patient's oxygen saturation is 99-100% on room air even with walking around the room. Medical Decision Making Lab Data Labs: Lab Results 11/06/21 Range/Units 20:55 COVID-19 ([facility]) Positive A (Negative) COVID-19 Clin Com See Note Discharge Plan Discharge Clinical Impression: COVID-19 Patient Disposition: Home, Self-Care Instructions: COVID-19 (Coronavirus Disease 2019) (ED) Additional Instructions: You tested positive for COVID-19. Please stay at home, quarantine for 7 days. Please follow-up with your primary care physician tomorrow. If you have any worsening or new symptoms, please return to the emergency room or call 911 Prescriptions: New ibuprofen 600 mg tablet 600 mg PO QID PRN (Reason: fever or pain) Qty: 20 RF: 0 ondansetron HCl [Zofran] 4 mg tablet 4 mg PO Q6H PRN (Reason: nausea and vomiting) Qty: 10 RF: 0 No Action oxycodone 5 mg tablet 5 mg PO DAILY PRN (Reason: pain (scale score 7-10)) 7 Days Qty: 7 RF: 0 celecoxib 200 mg capsule 200 mg PO BID Qty: 180 RF: 0 warfarin 7.5 mg Tablet 7.5 mg PO SUMOTUTHSA RF: 0 warfarin 5 mg Tablet 5 mg PO WEFR RF: 0 buprenorphine-naloxone 8-2 mg film 1 film sublingual DAILY RF: 0 hydroxyzine pamoate 25 mg capsule 25 mg PO TID PRN (Reason: anxiety) RF: 0 albuterol sulfate 90 mcg/actuation HFA aerosol inhaler 2 puff inhalation NEEDED PRN (Reason: Dyspnea) RF: 0 venlafaxine 75 mg capsule,extended release 24hr 75 mg PO DAILY RF: 0 cholecalciferol (vitamin D3) 50 mcg (2,000 unit) tablet 50 mcg PO DAILY RF: 0 trazodone 50 mg tablet 50 mg PO BEDTIME RF: 0 naloxone 4 mg/actuation spray,non-aerosol 4 mg intranasal DAILY PRN (Reason: Opioid Overdose) RF: 0 fluticasone propionate 50 mcg/actuation spray,suspension 1 spray intranasal BID RF: 0
== END 2021-11-06 22:47 | disposition home or self-care (01) ==
PROVIDERS: Emergency Provider Emergency Medicine
DX: U07.1 COVID-19 (principal); J45.909 Unspecified asthma, uncomplicated; Z95.2 Presence of prosthetic heart valve; Z79.01 Long term (current) use of anticoagulants; F11.20 Opioid dependence, uncomplicated
CPT/HCPCS: 36415; 87635; 99283

== ENCOUNTER 2021-11-17 15:19 | Outpatient (REF) | payer OTHER, SELFPAY ==
[2021-11-17 16:09] LABS: Binax Internal Control QC Valid; Binax Now Covid-19 Ag Negative (Negative)
== END 2021-11-17 15:20 | disposition home or self-care (01) ==
LOC: HO.LAB 15:19
PROVIDERS: Visit Provider Internal Medicine
DX: Z20.822 Contact with and (suspected) exposure to COVID-19 (principal)
CPT/HCPCS: C9803

== ENCOUNTER → 2021-11-18 13:57 | Outpatient (BNVA) | payer OTHER, SELFPAY | PROVIDERS: PCP Internal Medicine; Visit Provider Internal Medicine | DX: Z95.2 Presence of prosthetic heart valve (principal); Z51.81 Encounter for therapeutic drug level monitoring; Z79.01 Long term (current) use of anticoagulants | CPT/HCPCS: 85610; 99211 ==

== ENCOUNTER → 2021-11-25 15:47 | Outpatient (BNVA) | payer OTHER, SELFPAY | PROVIDERS: PCP Internal Medicine; Visit Provider Internal Medicine | DX: Z95.2 Presence of prosthetic heart valve (principal); Z51.81 Encounter for therapeutic drug level monitoring; Z79.01 Long term (current) use of anticoagulants | CPT/HCPCS: 85610; 99211 ==

== ENCOUNTER → 2021-12-02 15:28 | Outpatient (BNVA) | payer OTHER, SELFPAY | PROVIDERS: PCP Internal Medicine; Visit Provider Internal Medicine | DX: Z95.2 Presence of prosthetic heart valve (principal); Z51.81 Encounter for therapeutic drug level monitoring; Z79.01 Long term (current) use of anticoagulants | CPT/HCPCS: 85610; 99211 ==

== ENCOUNTER → 2021-12-09 15:06 | Outpatient (BNVA) | payer OTHER, SELFPAY | PROVIDERS: PCP Internal Medicine; Visit Provider Internal Medicine | DX: Z95.2 Presence of prosthetic heart valve (principal); Z51.81 Encounter for therapeutic drug level monitoring; Z79.01 Long term (current) use of anticoagulants | CPT/HCPCS: 85610; 99211 ==

== ENCOUNTER 2021-12-13 02:42 | Emergency (ER) | payer OTHER, SELFPAY ==
[2021-12-13 03:13] VITALS: BP 159/85; PULSE 88; RESP 16; TEMP 36.5; O2SAT 99; BMI 30.7
--- NOTE | 2021-12-13 03:25 | ED_ITS ---
HPI - Anxiety General Chief Complaint: Anxiety Stated Complaint: Anxiety Time Seen by Provider: 12/13/21 03:25 Source: patient Mode of arrival: ambulatory Limitations: no limitations History of Present Illness HPI narrative: Patient with of anxiety was out with his having dinner and felt very anxious start walking walking cold for 3 hours but wearing the mom check it patient takes medication for anxiety feels relaxed now denies any depression suicidal ideation/ homicidal feeling Related Data Home Medications Medication Instructions Recorded Confirmed buprenorphine 8 mg-naloxone 1 film SUBLINGUAL DAILY 11/13/20 12/02/21 2 mg sublingual film albuterol sulfate 90 2 puff INHALATION NEEDED 02/11/21 12/02/21 mcg/actuation PRN aerosol inhaler cholecalciferol (vitamin D3) 50 mcg PO DAILY 02/11/21 12/02/21 50 mcg (2,000 unit) tablet fluticasone propionate 50 1 spray INTRANASAL BID 02/11/21 12/02/21 mcg/actuation nasal spray,suspension hydroxyzine pamoate 25 mg 25 mg PO TID PRN 02/11/21 12/02/21 capsule naloxone 4 mg/actuation 4 mg INTRANASAL DAILY PRN 02/11/21 12/02/21 nasal spray trazodone 50 mg tablet 50 mg PO BEDTIME 02/11/21 12/02/21 venlafaxine 75 mg 75 mg PO DAILY 02/11/21 12/02/21 capsule,extended release 24 hr warfarin 5 mg tablet 5 mg PO WEFR 05/25/21 12/09/21 warfarin 7.5 mg tablet 7.5 mg PO SUMOTUTHSA 05/25/21 12/09/21 Previous Rx's Medication Instructions Recorded oxycodone 5 mg tablet 5 mg PO DAILY PRN 7 Days #7 tab 07/06/21 celecoxib 200 mg capsule 200 mg PO BID #180 cap 07/30/21 ibuprofen 600 mg tablet 600 mg PO QID PRN #20 tab 11/06/21 Allergies Allergy/AdvReac Type Severity Reaction Status Date / Time hydrocodone [From Allergy Unknown GI UPSET Verified 12/09/21 15:11 VICODIN] Review of Systems Verdana 4l Review of Systems: Yes all other systems are reviewed and Verdana 4d are negative [facility] Past Medical History Medical History Asthma Current use of anticoagulant therapy Opioid use disorder Surgical History Heart valve replaced History of heart valve replacement with mechanical valve Presence of other heart-valve replacement Social History Social History Household Members: Family Housing: House Do you presently have visiting nurse or other home services: Yes Alcohol intake: never Patient Tobacco Use Status: Never used Tobacco Tobacco use type: Cigarette Cigarettes Per Day: 5 Use of substances other than those prescribed or required for medical reasons: No Substance Use Type: Marijuana Advance Directives: No service: No Current occupational status: unemployed 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 Oriented X3. No acute distress. Anxious Eyes: PERRLA, No Nystagmus ENT: Pharynx normal. Oral Mucosa moist Neck: Normal inspection. Neck supple. CVS: Normal heart rate and rhythm. Pulses normal. Respiratory: No respiratory distress. Equal air entry bilateral, no wheezing/rales/rhonchi Abdomen: Soft and nontender. Bowel sounds are present, no mass palpable, Skin: Skin warm and dry. Normal skin color. Normal skin turgor. Neuro: Oriented X 3. Discharge Plan Discharge Clinical Impression: Acute anxiety Patient Disposition: Home, Self-Care Instructions: Anxiety (ED) Additional Instructions: Continue medications and follow-up with the psychiatrist/therapist Prescriptions: No Action oxycodone 5 mg tablet 5 mg PO DAILY PRN (Reason: pain (scale score 7-10)) 7 Days Qty: 7 0RF celecoxib 200 mg capsule 200 mg PO BID Qty: 180 0RF warfarin 7.5 mg Tablet 7.5 mg PO SUMOTUTHSA 0RF Protocol: Dose Management Condition: Tuesday (Week One) Dose/Route: 7.5 mg Instruction: 1 x 7.5 mg tablet Condition: Tuesday Dose/Route: 5 mg Instruction: 1 x 5 mg tablet Condition: Tuesday Dose/Route: 7.5 mg Instruction: 1 x 7.5 mg tablet Condition: Tuesday Dose/Route: 5 mg Instruction: 1 x 5 mg tablet Condition: Dose/Route: 7.5 mg Instruction: 1 x 7.5 mg tablet Condition: Tuesday Dose/Route: 7.5 mg Instruction: 1 x 7.5 mg tablet Condition: Tuesday Dose/Route: 7.5 mg Instruction: 1 x 7.5 mg tablet Condition: Tuesday ( Two) Dose/Route: 7.5 mg Instruction: 1 x 7.5 mg tablet Condition: Tuesday Dose/Route: 5 mg Instruction: 1 x 5 mg tablet Condition: Tuesday Dose/Route: 7.5 mg Instruction: 1 x 7.5 mg tablet Condition: Tuesday Dose/Route: 7.5 mg Instruction: 1 x 7.5 mg tablet Condition: Dose/Route: 7.5 mg Instruction: 1 x 7.5 mg tablet Condition: Tuesday Dose/Route: 7.5 mg Instruction: 1 x 7.5 mg tablet Condition: Tuesday Dose/Route: 7.5 mg Instruction: 1 x 7.5 mg tablet Protocol Text: Adjustment Start Date: Tuesday12/09/21 INR Value: 3.8 INR Date: 12/09/21 Recheck Date: 12/16/21 Additional Instructions: TAKE 5MG TODAY- THEN CONT REG DOSING EAT A GREEN TODAY warfarin 5 mg Tablet 5 mg PO WEFR 0RF Protocol: Dose Management Condition: Tuesday (Week One) Dose/Route: 7.5 mg Instruction: 1 x 7.5 mg tablet Condition: Tuesday Dose/Route: 5 mg Instruction: 1 x 5 mg tablet Condition: Tuesday Dose/Route: 7.5 mg Instruction: 1 x 7.5 mg tablet Condition: Tuesday Dose/Route: 5 mg Instruction: 1 x 5 mg tablet Condition: Dose/Route: 7.5 mg Instruction: 1 x 7.5 mg tablet Condition: Tuesday Dose/Route: 7.5 mg Instruction: 1 x 7.5 mg tablet Condition: Tuesday Dose/Route: 7.5 mg Instruction: 1 x 7.5 mg tablet Condition: Tuesday (Week Two) Dose/Route: 7.5 mg Instruction: 1 x 7.5 mg tablet Condition: Tuesday Dose/Route: 5 mg Instruction: 1 x 5 mg tablet Condition: Tuesday Dose/Route: 7.5 mg Instruction: 1 x 7.5 mg tablet Condition: Tuesday Dose/Route: 7.5 mg Instruction: 1 x 7.5 mg tablet Condition: Dose/Route: 7.5 mg Instruction: 1 x 7.5 mg tablet Condition: Tuesday Dose/Route: 7.5 mg Instruction: 1 x 7.5 mg tablet Condition: Tuesday Dose/Route: 7.5 mg Instruction: 1 x 7.5 mg tablet Protocol Text: Adjustment Start Date: Tuesday12/09/21 INR Value: 3.8 INR Date: 12/09/21 Recheck Date: 12/16/21 Additional Instructions: TAKE 5MG TODAY- THEN CONT REG DOSING EAT A GREEN TODAY ibuprofen 600 mg tablet 600 mg PO QID PRN (Reason: fever or pain) Qty: 20 0RF buprenorphine-naloxone 8-2 mg film 1 film sublingual DAILY 0RF hydroxyzine pamoate 25 mg capsule 25 mg PO TID PRN (Reason: anxiety) 0RF albuterol sulfate 90 mcg/actuation HFA aerosol inhaler 2 puff inhalation NEEDED PRN (Reason: Dyspnea) 0RF venlafaxine 75 mg capsule,extended release 24hr 75 mg PO DAILY 0RF cholecalciferol (vitamin D3) 50 mcg (2,000 unit) tablet 50 mcg PO DAILY 0RF trazodone 50 mg tablet 50 mg PO BEDTIME 0RF naloxone 4 mg/actuation spray,non-aerosol 4 mg intranasal DAILY PRN (Reason: Opioid Overdose) 0RF fluticasone propionate 50 mcg/actuation spray,suspension 1 spray intranasal BID 0RF Interventions: ED Discharge Assessment Last Done: 12/13/21 04:03 Discharge Date/Time: 12/13/21 04:05
[2021-12-13] MEDS: LORazepam 1 MG TABLET PO (03:41)
== END 2021-12-13 04:05 | disposition home or self-care (01) ==
PROVIDERS: Emergency Provider Internal Medicine
DX: F41.1 Generalized anxiety disorder (principal); F17.210 Nicotine dependence, cigarettes, uncomplicated; Z71.6 Tobacco abuse counseling; Z79.899 Other long term (current) drug therapy
CPT/HCPCS: 99284

== ENCOUNTER → 2021-12-18 13:33 | Outpatient (BNVA) | payer OTHER, SELFPAY | PROVIDERS: Visit Provider Internal Medicine | DX: Z95.2 Presence of prosthetic heart valve (principal); Z51.81 Encounter for therapeutic drug level monitoring; Z79.01 Long term (current) use of anticoagulants | CPT/HCPCS: 85610; 99211 ==

== ENCOUNTER → 2022-01-06 14:50 | Outpatient (BNVA) | payer OTHER, SELFPAY | PROVIDERS: PCP Internal Medicine; Visit Provider Internal Medicine | DX: Z95.2 Presence of prosthetic heart valve (principal); Z51.81 Encounter for therapeutic drug level monitoring; Z79.01 Long term (current) use of anticoagulants | CPT/HCPCS: 85610; 99211 ==

== ENCOUNTER → 2022-01-27 15:23 | Outpatient (BNVA) | payer OTHER, SELFPAY | PROVIDERS: PCP Internal Medicine; Visit Provider Internal Medicine | DX: Z95.2 Presence of prosthetic heart valve (principal); Z51.81 Encounter for therapeutic drug level monitoring; Z79.01 Long term (current) use of anticoagulants | CPT/HCPCS: 85610; 99211 ==

== ENCOUNTER → 2022-02-03 15:29 | Outpatient (BNVA) | payer OTHER, SELFPAY | PROVIDERS: PCP Internal Medicine; Visit Provider Internal Medicine | DX: Z95.2 Presence of prosthetic heart valve (principal); Z51.81 Encounter for therapeutic drug level monitoring; Z79.01 Long term (current) use of anticoagulants | CPT/HCPCS: 85610; 99211 ==

== ENCOUNTER → 2022-02-10 15:38 | Outpatient (BNVA) | payer OTHER, SELFPAY | PROVIDERS: PCP Internal Medicine; Visit Provider Internal Medicine | DX: Z95.2 Presence of prosthetic heart valve (principal); Z51.81 Encounter for therapeutic drug level monitoring; Z79.01 Long term (current) use of anticoagulants | CPT/HCPCS: 85610; 99211 ==

== ENCOUNTER → 2022-02-17 15:50 | Outpatient (BNVA) | payer OTHER, SELFPAY | PROVIDERS: PCP Internal Medicine; Visit Provider Internal Medicine | DX: Z95.2 Presence of prosthetic heart valve (principal); Z79.01 Long term (current) use of anticoagulants; Z51.81 Encounter for therapeutic drug level monitoring | CPT/HCPCS: 85610; 99211 ==

== ENCOUNTER 2022-02-20 01:14 | Emergency (ER) | payer OTHER, SELFPAY ==
--- NOTE | ~2022-02-20 | XR_ITS ---
EXAMINATION: XR ANKLE, LEFT CLINICAL INFORMATION: Pain. COMPARISON: None TECHNIQUE: AP, lateral, and mortise views of the left ankle. FINDINGS: The bones and soft tissues are normal. No fracture. Alignment is anatomic. Joint spaces are maintained. No joint effusion. XR/XR ankle LT 2V IMPRESSION: Normal left ankle.
[2022-02-20 02:31] VITALS: BP 145/71; PULSE 85; RESP 20; TEMP 36.5; O2SAT 97; BMI 22.5
--- NOTE | 2022-02-20 05:34 | ED.LOWEXIN ---
HPI - Extremity Injury (Lower) General Chief Complaint: Extremity Injury, Lower Stated Complaint: L Ankle Inj Time Seen by Provider: 02/20/22 05:32 Source: patient Mode of arrival: ambulatory History of Present Illness HPI Narrative: 36-year-old male with history metallic valve on Coumadin who twisted his left ankle and states that he had significant pain and his recommendations from friends were that he should come in to get evaluated Because he is on Coumadin. Related Data Home Medications Medication Instructions Recorded Confirmed buprenorphine 8 mg-naloxone 2 mg 1 film SUBLINGUAL DAILY 11/13/20 02/03/22 sublingual film albuterol sulfate 90 mcg/actuation 2 puff INHALATION NEEDED PRN 02/11/21 02/03/22 aerosol inhaler cholecalciferol (vitamin D3) 50 50 mcg PO DAILY 02/11/21 02/03/22 mcg (2,000 unit) tablet fluticasone propionate 50 1 spray INTRANASAL BID 02/11/21 02/03/22 mcg/actuation nasal spray,suspension hydroxyzine pamoate 25 mg capsule 25 mg PO TID PRN 02/11/21 02/03/22 naloxone 4 mg/actuation nasal spray 4 mg INTRANASAL DAILY PRN 02/11/21 02/03/22 trazodone 50 mg tablet 50 mg PO BEDTIME 02/11/21 02/03/22 venlafaxine 75 mg capsule,extended 75 mg PO DAILY 02/11/21 02/03/22 release 24 hr warfarin 5 mg tablet 5 mg PO WEFR 05/25/21 02/17/22 warfarin 7.5 mg tablet 7.5 mg PO SUMOTUTHSA 05/25/21 02/17/22 ferrous sulfate 325 mg (65 mg 0 mg PO 01/27/22 02/03/22 iron) tablet (FeroSul) terbinafine HCl 250 mg tablet 250 mg PO DAILY 01/27/22 02/03/22 venlafaxine 37.5 mg 37.5 mg PO DAILY 01/27/22 02/03/22 capsule,extended release 24 hr nicotine (polacrilex) 2 mg gum mg PO 02/03/22 02/03/22 Previous Rx's Medication Instructions Recorded oxycodone 5 mg tablet 5 mg PO DAILY PRN 7 Days #7 tab 07/06/21 celecoxib 200 mg capsule 200 mg PO BID #180 cap 07/30/21 ibuprofen 600 mg tablet 600 mg PO QID PRN #20 tab 11/06/21 Allergies Allergy/AdvReac Type Severity Reaction Status Date / Time hydrocodone [From VICODIN] Allergy Unknown GI UPSET Verified 02/17/22 15:50 Review of Systems Review of Systems: pertinent positives and negatives as stated in HPI 10 point review of systems is otherwise negative. [facility] Past Medical History Source: nursing notes reviewed Medical History Asthma Current use of anticoagulant therapy Opioid use disorder Surgical History Heart valve replaced History of heart valve replacement with mechanical valve Presence of other heart-valve replacement Social History Social History Household Members: Family Housing: House Do you presently have visiting nurse or other home services: Yes Alcohol intake: never Patient Tobacco Use Status: Never used Tobacco Tobacco use type: Cigarette Cigarettes Per Day: 5 Substance Use Type: Marijuana Advance Directives: No service: No Current occupational status: unemployed 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 GENERAL: Well developed, well nourished, in no acute distress. HEAD: Normocephalic/atraumatic EYES: PERRLA, EOMI OROPHARYNX: no oral lesions noted, posterior pharynx clear LUNGS: Normal breath sounds. No adventitious sounds or accessory muscle use. SpO2<99> CARDIOVASCULAR: Regular rate and rhythm without noted murmurs ABDOMEN: Soft, non-tender, non-distended with bowel sounds. MUSCULOSKELETAL: No tenderness, deformities, or effusions noted on gross inspection. EXTREMITIES: No cyanosis, clubbing or edema; LEFT ANKLE: Mild swelling to the lateral malleolus, DP/PT pulses are palpable, warm foot, good capillary refill and sensory is intact. Mild pain on palpation over the lateral and medial malleoli, no ecchymosis noted. SKIN: Inspection of the skin reveals no rashes NEUROLOGIC: Alert and oriented x 4. Course Course Course Narrative: 36-year-old male with history and clinical presentation consistent with left ankle swelling and provided Tylenol for pain review of x-ray is negative for acute fracture or disc location and Kin wrap was applied and patient was provided with crutches. On re-evaluation patient's pain has significantly improved. Discharge Plan Discharge Clinical Impression: Sprain of ankle, left Patient Disposition: Home, Self-Care Instructions: Ankle Sprain (ED), Crutch Instructions (ED), Ice Pack Application (ED), R.I.C.E. Treatment (ED) Additional Instructions: 1. Resume all home medications as prescribed. 2. Tylenol 1000 mg, orally, every 6 hours as needed for pain control. 3. Keep extremity elevated as much as possible and apply ice to unexposed skin for 10-15 minutes, 3 to 4 times a day. 4. Follow-up with your primary care provider in the next 2-3 days for re-evaluation. Return to the ER for worsening symptoms. Prescriptions: No Action oxycodone 5 mg tablet 5 mg PO DAILY PRN (Reason: pain (scale score 7-10)) 7 Days Qty: 7 0RF celecoxib 200 mg capsule 200 mg PO BID Qty: 180 0RF warfarin 7.5 mg Tablet 7.5 mg PO SUMOTUTHSA 0RF Protocol: Dose Management Condition: Tuesday (Week One) Dose/Route: 7.5 mg Instruction: 1 x 7.5 mg tablet Condition: Tuesday Dose/Route: 7.5 mg Instruction: 1 x 7.5 mg tablet Condition: Tuesday Dose/Route: 7.5 mg Instruction: 1 x 7.5 mg tablet Condition: Tuesday Dose/Route: 10 mg Instruction: 2 x 5 mg tablets Condition: Dose/Route: 7.5 mg Instruction: 1 x 7.5 mg tablet Condition: Tuesday Dose/Route: 7.5 mg Instruction: 1 x 7.5 mg tablet Condition: Tuesday Dose/Route: 7.5 mg Instruction: 1 x 7.5 mg tablet Condition: Tuesday (Week Two) Dose/Route: 7.5 mg Instruction: 1 x 7.5 mg tablet Condition: Tuesday Dose/Route: 7.5 mg Instruction: 1 x 7.5 mg tablet Condition: Tuesday Dose/Route: 7.5 mg Instruction: 1 x 7.5 mg tablet Condition: Tuesday Dose/Route: 10 mg Instruction: 2 x 5 mg tablets Condition: Dose/Route: 7.5 mg Instruction: 1 x 7.5 mg tablet Condition: Tuesday Dose/Route: 7.5 mg Instruction: 1 x 7.5 mg tablet Condition: Tuesday Dose/Route: 7.5 mg Instruction: 1 x 7.5 mg tablet Protocol Text: Adjustment Start Date: Tuesday02/17/22 INR Value: 3.0 INR Date: 02/17/22 Recheck Date: 03/03/22 Additional Instructions: CONT REG DOSING CALL WITH ANY MEDICATION CHANGES warfarin 5 mg Tablet 5 mg PO WEFR 0RF Protocol: Dose Management Condition: Tuesday (Week One) Dose/Route: 7.5 mg Instruction: 1 x 7.5 mg tablet Condition: Tuesday Dose/Route: 7.5 mg Instruction: 1 x 7.5 mg tablet Condition: Tuesday Dose/Route: 7.5 mg Instruction: 1 x 7.5 mg tablet Condition: Tuesday Dose/Route: 10 mg Instruction: 2 x 5 mg tablets Condition: Dose/Route: 7.5 mg Instruction: 1 x 7.5 mg tablet Condition: Tuesday Dose/Route: 7.5 mg Instruction: 1 x 7.5 mg tablet Condition: Tuesday Dose/Route: 7.5 mg Instruction: 1 x 7.5 mg tablet Condition: Tuesday (Week Two) Dose/Route: 7.5 mg Instruction: 1 x 7.5 mg tablet Condition: Tuesday Dose/Route: 7.5 mg Instruction: 1 x 7.5 mg tablet Condition: Tuesday Dose/Route: 7.5 mg Instruction: 1 x 7.5 mg tablet Condition: Tuesday Dose/Route: 10 mg Instruction: 2 x 5 mg tablets Condition: Dose/Route: 7.5 mg Instruction: 1 x 7.5 mg tablet Condition: Tuesday Dose/Route: 7.5 mg Instruction: 1 x 7.5 mg tablet Condition: Tuesday Dose/Route: 7.5 mg Instruction: 1 x 7.5 mg tablet Protocol Text: Adjustment Start Date: Tuesday02/17/22 INR Value: 3.0 INR Date: 02/17/22 Recheck Date: 03/03/22 Additional Instructions: CONT REG DOSING CALL WITH ANY MEDICATION CHANGES ibuprofen 600 mg tablet 600 mg PO QID PRN (Reason: fever or pain) Qty: 20 0RF buprenorphine-naloxone 8-2 mg film 1 film sublingual DAILY 0RF hydroxyzine pamoate 25 mg capsule 25 mg PO TID PRN (Reason: anxiety) 0RF albuterol sulfate 90 mcg/actuation HFA aerosol inhaler 2 puff inhalation NEEDED PRN (Reason: Dyspnea) 0RF venlafaxine 75 mg capsule,extended release 24hr 75 mg PO DAILY 0RF cholecalciferol (vitamin D3) 50 mcg (2,000 unit) tablet 50 mcg PO DAILY 0RF trazodone 50 mg tablet 50 mg PO BEDTIME 0RF naloxone 4 mg/actuation spray,non-aerosol 4 mg intranasal DAILY PRN (Reason: Opioid Overdose) 0RF fluticasone propionate 50 mcg/actuation spray,suspension 1 spray intranasal BID 0RF ferrous sulfate [FeroSul] 325 mg (65 mg iron) tablet 0 mg PO 0RF venlafaxine 37.5 mg capsule,extended release 24hr 37.5 mg PO DAILY 0RF terbinafine HCl 250 mg tablet 250 mg PO DAILY 0RF nicotine (polacrilex) 2 mg gum PO 0RF
[2022-02-20] MEDS: Acetaminophen 325 MG TABLET 975 MG PO (05:52)
[2022-02-20 05:53] VITALS: BP 141/84; PULSE 80; RESP 16; O2SAT 100
[2022-02-20 06:00] VITALS: BP 138/86; PULSE 74; RESP 16; TEMP 37; O2SAT 99
== END 2022-02-20 06:51 | disposition home or self-care (01) ==
PROVIDERS: Emergency Provider Student in an Organized Health Care Education/Training Program
DX: S93.402A Sprain of unspecified ligament of left ankle, initial encounter (principal); J45.909 Unspecified asthma, uncomplicated; Z79.01 Long term (current) use of anticoagulants; X50.1XXA Overexertion from prolonged static or awkward postures, initial encounter; Z95.2 Presence of prosthetic heart valve; Y93.9 Activity, unspecified; Y92.9 Unspecified place or not applicable; Y99.9 Unspecified external cause status
CPT/HCPCS: 73600; 99283; 99284

== ENCOUNTER → 2022-03-03 15:15 | Outpatient (BNVA) | payer OTHER, SELFPAY | PROVIDERS: PCP Internal Medicine; Visit Provider Internal Medicine | DX: Z95.2 Presence of prosthetic heart valve (principal); Z79.01 Long term (current) use of anticoagulants; Z51.81 Encounter for therapeutic drug level monitoring | CPT/HCPCS: 85610; 99211 ==

== ENCOUNTER → 2022-03-05 15:43 | Outpatient (BNVA) | payer OTHER, SELFPAY | PROVIDERS: PCP Internal Medicine; Visit Provider Internal Medicine | DX: Z95.2 Presence of prosthetic heart valve (principal); Z79.01 Long term (current) use of anticoagulants; Z51.81 Encounter for therapeutic drug level monitoring | CPT/HCPCS: 85610; 99211 ==

== ENCOUNTER 2022-03-06 19:23 | Emergency (ER) | payer OTHER, SELFPAY ==
--- NOTE | 2022-03-06 19:25 | ED_ITS ---
HPI - Psych General Chief Complaint: Anxiety Stated Complaint: behavioral outburst Time Seen by Provider: 03/06/22 19:24 Source: patient and EMS Mode of arrival: EMS Limitations: no limitations History of Present Illness HPI Narrative: This is a 36 year medical history significant for opiate use disorder presenting to the emergency department with a behavioral outburst just prior to his arrival he presents by ambulance. According to patient and ambulance patient went outside and started screaming, bystander called 911 he was brought into the emergency department for evaluation. Patient tells me he is under lot of stress, currently in the middle move with his family, he tells me that he does remember smoking marijuana at outside an they told him that he was screaming in the middle of the road. He denies visual, auditory and tactile hallucinations. Denies suicidal and homicidal ideation. His only complaint is that he is feeling hot. He denies chest pain, shortness of breath, headache, vision soler es, dizziness, nausea, vomiting, abdominal pain, weakness. Patient tells me he is currently taking psychiatric medications and he has been taking them as prescribed. History of same: No Context: recent drug abuse Associated psychiatric symptoms: none Associated symptoms: denies other symptoms Treatments prior to arrival: none Related Data Home Medications Medication Instructions Recorded Confirmed buprenorphine 8 mg-naloxone 2 mg 1 film SUBLINGUAL DAILY 11/13/20 03/05/22 sublingual film albuterol sulfate 90 mcg/actuation 2 puff INHALATION NEEDED PRN 02/11/21 03/05/22 aerosol inhaler cholecalciferol (vitamin D3) 50 50 mcg PO DAILY 02/11/21 03/05/22 mcg (2,000 unit) tablet fluticasone propionate 50 1 spray INTRANASAL BID 02/11/21 03/05/22 mcg/actuation nasal spray,suspension hydroxyzine pamoate 25 mg capsule 25 mg PO TID PRN 02/11/21 03/05/22 naloxone 4 mg/actuation nasal spray 4 mg INTRANASAL DAILY PRN 02/11/21 03/05/22 trazodone 50 mg tablet 50 mg PO BEDTIME 02/11/21 03/05/22 venlafaxine 75 mg capsule,extended 75 mg PO DAILY 02/11/21 03/05/22 release 24 hr warfarin 5 mg tablet 5 mg PO WEFR 05/25/21 03/05/22 warfarin 7.5 mg tablet 7.5 mg PO SUMOTUTHSA 05/25/21 03/05/22 ferrous sulfate 325 mg (65 mg 0 mg PO 01/27/22 03/05/22 iron) tablet (FeroSul) terbinafine HCl 250 mg tablet 250 mg PO DAILY 01/27/22 03/05/22 venlafaxine 37.5 mg 37.5 mg PO DAILY 01/27/22 03/05/22 capsule,extended release 24 hr nicotine (polacrilex) 2 mg gum mg PO 02/03/22 03/05/22 acetaminophen 650 mg 0 mg PO 03/05/22 03/05/22 tablet,extended release (Mapap Arthritis Pain) Previous Rx's Medication Instructions Recorded oxycodone 5 mg tablet 5 mg PO DAILY PRN 7 Days #7 tab 07/06/21 celecoxib 200 mg capsule 200 mg PO BID #180 cap 07/30/21 ibuprofen 600 mg tablet 600 mg PO QID PRN #20 tab 11/06/21 Allergies Allergy/AdvReac Type Severity Reaction Status Date / Time hydrocodone [From VICODIN] Allergy Unknown GI UPSET Verified 03/05/22 15:45 Review of Systems Review of Systems: Constitutional : No Fever, No Chills ENT/Mouth : No sore throat, No Rhinorrhea Eyes: No Eye Pain, No Swelling, No Redness Cardiovascular : No Chest Pain, No SOB Respiratory : No Cough, No Sputum Gastrointestinal : No Nausea, No Vomiting, No Diarrhea, No abdominal Pain Genitourinary : No Dysuria, No Hematuria Musculoskeletal : No joint pain, No Myalgias, No Joint Swelling Skin : No Skin Lesions, No rash Neuro : No Weakness, No Numbness Psych : No Anxiety, No Depression, No SI/HI/AH/VH All other systems reviewed and are negative Yes all other systems are reviewed and are negative [facility] Past Medical History Attestation statement: The following information was validated with the patient. Source: old records reviewed and nursing notes reviewed Medical History Asthma Current use of anticoagulant therapy Opioid use disorder Surgical History Heart valve replaced History of heart valve replacement with mechanical valve Presence of other heart-valve replacement Social History Social History Household Members: Family Housing: House Do you presently have visiting nurse or other home services: Yes Alcohol intake: never Patient Tobacco Use Status: Never used Tobacco Tobacco use type: Cigarette Cigarettes Per Day: 5 Substance Use Type: Marijuana Substance Use Frequency: Daily Last Used Substance: Just Prior to Admission Advance Directives: No service: No Current occupational status: unemployed 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 Oriented X3.? No acute distress.? Head: Normocephalic, atraumatic, no step-offs or deformities Eyes: Pupils equal, round and reactive to light.? ENT: Pharynx normal.? Neck: Normal inspection.? Neck supple.? CVS: Normal heart rate and rhythm.? Pulses normal.? Respiratory: No respiratory distress.? Breath sounds normal.? Abdomen: Soft and nontender.? Skin: Skin warm and dry.? Normal skin color.? Normal skin turgor.? Extremities: No lower extremity edema.? No calf ttp. 5/5 strength to bilateral upper and lower extremities Back: No midline tenderness, no C-spine tenderness, full range of motion, no CVA tenderness bilaterally Neuro: Oriented X 3.? No motor deficit.? No sensory deficit. CN 2-12 intact Course Reevaluation(s) Reevaluation #1: Patient's drug abuse screening positive for PCP. CBC appears to be within patient's baseline. No acute electrolyte abnormalities. Ethanol negative. COVID negative. At this time patient appears much better, he is no longer telling me he feels warm. Patient denies SI and HI. Denies medical complaints. Ambulating with a steady gait, on the phone with family members. Patient tells me he feels much better and would like to leave. He does not want detox at this time. SUDE evaluation put in. Time: 21:40 Reevaluation #2: Patient tells me that his family members here to get him. And he does not want to wait to speak to somebody from [facility]. Care team is not in today so I explained to patient that he would have to stay until later today he tells me he would not have arrived later today therefore would like to leave. He did ask me they had a list of resources, provided patient with the therapy and counseling providers hand out and gave him information for [facility]. Patient tells me he is feeling much better. He tells me he has a great support system at home. Denies SI and HI. Gave him information on behavioral health network and their phone number. Upon discharge patient denies any chest pain, shortness of breath, fevers, chills, nausea, vomiting, headache, dizziness, vision changes. Patient's neuro exam is nonfocal. Cranial nerves 2-12 intact. Time: 22:07 MDM - Psych MDM Narrative Medical decision making narrative: 1924 36-year-old male presents to the emergency department via ambulance for evaluation status post behavioral outburst. Patient coming in voluntarily. He tells me he just thinks I out did the marijuana . Patient's only complaint is that he feels hot. Physical exam benign Plan at this time is UA, COVID, crisis evaluation Medical Records Attestation: I reviewed the patient's medical records. Lab Data Attestation: I reviewed the patient's lab results. Result diagrams: 03/06/22 19:44 03/06/22 19:44 Labs: Lab Results 03/06/22 03/06/22 03/06/22 Range/Units 19:44 19:44 19:44 WBC 6.6 (4.8-10.8) X10*3/uL RBC 4.97 (4.60-5.80) X10*6/uL Hgb 13.0 L (14.0-18.0) g/dl Hct 40.8 L (42.0-52.0) % MCV 82.1 (80.0-98.0) fL MCH 26.2 L (27.0-33.0) pg MCHC 31.9 (31.0-36.0) g/dl RDW 14.2 (11.0-16.0) % Plt Count 255 (160-400) X10*3/uL MPV 11.1 (9.4-12.4) fL Immature Gran % (Auto) 0.2 (0.0-0.4) % Neut % (Auto) 77.3 H (45-73) % Lymph % (Auto) 14.8 L (20-40) % [place] % (Auto) 7.2 (2-11) % Eos % (Auto) 0.2 (0-4) % Baso % (Auto) 0.3 (0-2) % Lymph # (Auto) 1.0 L (1.2-4.9) X10*3/uL [place] # (Auto) 0.5 (0.1-1.2) X10*3/uL Eos # (Auto) 0.0 (0.0-0.4) X10*3/uL Baso # (Auto) 0.0 (0.0-0.2) X10*3/uL Abs Immat Gran (auto) 0.01 (0.00-0.03) X10*3/uL Absolute Neuts (auto) 5.1 (2.0-8.3) x10*3/uL Absolute Nucleated RBC 0.000 (0.0-0.012) X10*3/uL Nucleated RBC % (auto) 0.0 (0.0-0.2) /100WBC Sodium 139 (135-145) mmol/L Potassium 3.9 (3.3-5.1) mmol/L Chloride 106 (96-108) mmol/L Carbon Dioxide 26 (22-29) mmol/L Anion Gap 11 L (12-20) BUN 17 H (9-16) mg/dL Creatinine 0.90 (0.5-1.4) mg/dL Estim Creat Clear Calc 131.0 Estimated GFR > 60 Random Glucose 103 (60-115) mg/dL Calcium 9.5 (8.4-10.2) mg/dL Urine Fentanyl Screen (Not Detect) Ur Barbiturates Screen (Not Detect) Ur Phencyclidine Scrn (Not Detect) Ur Amphetamines Screen (Not Detect) U Benzodiazepines Scrn (Not Detect) Urine Cocaine Screen (Not Detect) U Marijuana (THC) Screen (Not Detect) Ethyl Alcohol mg/dL COVID-19 ([facility]) Negative (Negative) COVID-19 Clin Com See Note 03/06/22 03/06/22 Range/Units 19:44 20:53 WBC (4.8-10.8) X10*3/uL RBC (4.60-5.80) X10*6/uL Hgb (14.0-18.0) g/dl Hct (42.0-52.0) % MCV (80.0-98.0) fL MCH (27.0-33.0) pg MCHC (31.0-36.0) g/dl RDW (11.0-16.0) % Plt Count (160-400) X10*3/uL MPV (9.4-12.4) fL Immature Gran % (Auto) (0.0-0.4) % Neut % (Auto) (45-73) % Lymph % (Auto) (20-40) % [place] % (Auto) (2-11) % Eos % (Auto) (0-4) % Baso % (Auto) (0-2) % Lymph # (Auto) (1.2-4.9) X10*3/uL [place] # (Auto) (0.1-1.2) X10*3/uL Eos # (Auto) (0.0-0.4) X10*3/uL Baso # (Auto) (0.0-0.2) X10*3/uL Abs Immat Gran (auto) (0.00-0.03) X10*3/uL Absolute Neuts (auto) (2.0-8.3) x10*3/uL Absolute Nucleated RBC (0.0-0.012) X10*3/uL Nucleated RBC % (auto) (0.0-0.2) /100WBC Sodium (135-145) mmol/L Potassium (3.3-5.1) mmol/L Chloride (96-108) mmol/L Carbon Dioxide (22-29) mmol/L Anion Gap (12-20) BUN (9-16) mg/dL Creatinine (0.5-1.4) mg/dL Estim Creat Clear Calc Estimated GFR Random Glucose (60-115) mg/dL Calcium (8.4-10.2) mg/dL Urine Fentanyl Screen Not Detected (Not Detect) Ur Barbiturates Screen Not Detected (Not Detect) Ur Phencyclidine Scrn POSITIVE H (Not Detect) Ur Amphetamines Screen Not Detected (Not Detect) U Benzodiazepines Scrn Not Detected (Not Detect) Urine Cocaine Screen Not Detected (Not Detect) U Marijuana (THC) Screen Not Detected (Not Detect) Ethyl Alcohol < 10 mg/dL COVID-19 ([facility]) (Negative) COVID-19 Clin Com Critical Care Time Critical Care Time Critical Care Time: No Discharge Plan Discharge Clinical Impression: PCP (phencyclidine) abuse Patient Disposition: Home, Self-Care Instructions: Polysubstance Abuse (ED) Additional Instructions: Take your medications as prescribed. If you were prescribed antibiotics today, it is important that you take your medication to their entirety, do not skip any doses, do not finish them early. Follow-up with your primary care provider this week. Return to the emergency department with new or worsening symptoms. Such as fevers, chills, chest pain, shortness of breath, nausea, vomiting, dizziness, headache, vision changes, lethargy In case of emergency call 911 You declined detox. Your urine was positive for PCP. Prescriptions: No Action oxycodone 5 mg tablet 5 mg PO DAILY PRN (Reason: pain (scale score 7-10)) 7 Days Qty: 7 0RF celecoxib 200 mg capsule 200 mg PO BID Qty: 180 0RF warfarin 7.5 mg Tablet 7.5 mg PO SUMOTUTHSA 0RF Protocol: Dose Management Condition: Tuesday (Week One) Dose/Route: 7.5 mg Instruction: 1 x 7.5 mg tablet Condition: Tuesday Dose/Route: 7.5 mg Instruction: 1 x 7.5 mg tablet Condition: Tuesday Dose/Route: 7.5 mg Instruction: 1 x 7.5 mg tablet Condition: Tuesday Dose/Route: 12.5 mg Instruction: 1 x 5 mg tablet, 1 x 7.5 mg tablet Condition: Dose/Route: 10 mg Instruction: 2 x 5 mg tablets Condition: Tuesday Dose/Route: 7.5 mg Instruction: 1 x 7.5 mg tablet Condition: Tuesday Dose/Route: 7.5 mg Instruction: 1 x 7.5 mg tablet Condition: Tuesday (Week Two) Dose/Route: 7.5 mg Instruction: 1 x 7.5 mg tablet Condition: Tuesday Dose/Route: 7.5 mg Instruction: 1 x 7.5 mg tablet Condition: Tuesday Dose/Route: 7.5 mg Instruction: 1 x 7.5 mg tablet Condition: Tuesday Dose/Route: 10 mg Instruction: 2 x 5 mg tablets Condition: Dose/Route: 7.5 mg Instruction: 1 x 7.5 mg tablet Condition: Tuesday Dose/Route: 7.5 mg Instruction: 1 x 7.5 mg tablet Condition: Tuesday Dose/Route: 7.5 mg Instruction: 1 x 7.5 mg tablet Protocol Text: Adjustment Start Date: Tuesday03/05/22 INR Value: 3.1 INR Date: 03/05/22 Recheck Date: 03/12/22 Additional Instructions: resume usual diet - eat a mix of greens and reds warfarin 5 mg Tablet 5 mg PO WEFR 0RF Protocol: Dose Management Condition: Tuesday (Week One) Dose/Route: 7.5 mg Instruction: 1 x 7.5 mg tablet Condition: Tuesday Dose/Route: 7.5 mg Instruction: 1 x 7.5 mg tablet Condition: Tuesday Dose/Route: 7.5 mg Instruction: 1 x 7.5 mg tablet Condition: Tuesday Dose/Route: 12.5 mg Instruction: 1 x 5 mg tablet, 1 x 7.5 mg tablet Condition: Dose/Route: 10 mg Instruction: 2 x 5 mg tablets Condition: Tuesday Dose/Route: 7.5 mg Instruction: 1 x 7.5 mg tablet Condition: Tuesday Dose/Route: 7.5 mg Instruction: 1 x 7.5 mg tablet Condition: Tuesday (Week Two) Dose/Route: 7.5 mg Instruction: 1 x 7.5 mg tablet Condition: Tuesday Dose/Route: 7.5 mg Instruction: 1 x 7.5 mg tablet Condition: Tuesday Dose/Route: 7.5 mg Instruction: 1 x 7.5 mg tablet Condition: Tuesday Dose/Route: 10 mg Instruction: 2 x 5 mg tablets Condition: Dose/Route: 7.5 mg Instruction: 1 x 7.5 mg tablet Condition: Tuesday Dose/Route: 7.5 mg Instruction: 1 x 7.5 mg tablet Condition: Tuesday Dose/Route: 7.5 mg Instruction: 1 x 7.5 mg tablet Protocol Text: Adjustment Start Date: Tuesday03/05/22 INR Value: 3.1 INR Date: 03/05/22 Recheck Date: 03/12/22 Additional Instructions: resume usual diet - eat a mix of greens and reds ibuprofen 600 mg tablet 600 mg PO QID PRN (Reason: fever or pain) Qty: 20 0RF buprenorphine-naloxone 8-2 mg film 1 film sublingual DAILY 0RF hydroxyzine pamoate 25 mg capsule 25 mg PO TID PRN (Reason: anxiety) 0RF albuterol sulfate 90 mcg/actuation HFA aerosol inhaler 2 puff inhalation NEEDED PRN (Reason: Dyspnea) 0RF venlafaxine 75 mg capsule,extended release 24hr 75 mg PO DAILY 0RF cholecalciferol (vitamin D3) 50 mcg (2,000 unit) tablet 50 mcg PO DAILY 0RF trazodone 50 mg tablet 50 mg PO BEDTIME 0RF naloxone 4 mg/actuation spray,non-aerosol 4 mg intranasal DAILY PRN (Reason: Opioid Overdose) 0RF fluticasone propionate 50 mcg/actuation spray,suspension 1 spray intranasal BID 0RF acetaminophen [Mapap Arthritis Pain] 650 mg tablet extended release 0 mg PO 0RF ferrous sulfate [FeroSul] 325 mg (65 mg iron) tablet 0 mg PO 0RF venlafaxine 37.5 mg capsule,extended release 24hr 37.5 mg PO DAILY 0RF terbinafine HCl 250 mg tablet 250 mg PO DAILY 0RF nicotine (polacrilex) 2 mg gum PO 0RF [facility] - 3 days Physician,Unknown J [Primary Care Provider] - 3 days Stand Alone Forms: Work/School Release
[2022-03-06 19:31] VITALS: BP 149/97; PULSE 102; RESP 18; TEMP 37; O2SAT 98; BMI 22.5
[2022-03-06 19:45] VITALS: BP 169/105; PULSE 103; RESP 16; O2SAT 97
[2022-03-06 19:48] LABS: MANUAL DIFF FLAG NO
[2022-03-06 20:05] LABS: Ethanol < 10 mg/dL
[2022-03-06 20:07] LABS: Anion Gap 11 (12-20); Basophils Percent Auto 0.3 % (0-2); Blood Urea Nitrogen 17 mg/dL (9-16); Calcium 9.5 mg/dL (8.4-10.2); Carbon Dioxide 26 mmol/L (22-29); Chloride 106 mmol/L (96-108); Eosinophils Percent Auto 0.2 % (0-4); Estimated Glomerular Filt Rate > 60; Glucose Random 103 mg/dL (60-115); Hematocrit 40.8 % (42.0-52.0); Imm Gran Abs Auto 0.01 X10*3/uL (0.00-0.03); Imm Gran Pct Auto 0.2 % (0.0-0.4); Lymphocytes Percent Auto 14.8 % (20-40); Mean Corpuscular HGB Conc 31.9 g/dl (31.0-36.0); Mean Corpuscular Hemoglobin 26.2 pg (27.0-33.0); Mean Corpuscular Volume 82.1 fL (80.0-98.0); Mean Platelet Volume 11.1 fL (9.4-12.4); Monocytes Absolute Auto 0.5 X10*3/uL (0.1-1.2); Monocytes Percent Auto 7.2 % (2-11); Neutrophils Absolute Auto 5.1 x10*3/uL (2.0-8.3); Neutrophils Percent Auto 77.3 % (45-73); Platelet Count 255 X10*3/uL (160-400); Potassium 3.9 mmol/L (3.3-5.1); Red Blood Count 4.97 X10*6/uL (4.60-5.80); Red Cell Distribution Width 14.2 % (11.0-16.0); Sodium 139 mmol/L (135-145); White Blood Count 6.6 X10*3/uL (4.8-10.8)
[2022-03-06 20:14] LABS: COVID-19 Test Negative (Negative)
[2022-03-06 20:25] VITALS: BP 149/83; PULSE 63; RESP 16; O2SAT 100
[2022-03-06 22:00] VITALS: BP 158/85; PULSE 88; RESP 16; O2SAT 97
--- NOTE | 2022-03-06 22:04 | PC.NURSE ---
Patient anxious to leave, PA aware. Patient awaiting care team to bedside. VSS. Will monitor.
--- NOTE | 2022-03-06 22:14 | PC.NURSE ---
pt given detox information, no care team on tonight, phone numbers given for detox. steady gait. alert oriented x3 . skin pink warm and dry.
[2022-03-06 23:04] LABS: Amphetamine Screen Urine Not Detected (Not Detect); Barbiturates, Urine Not Detected (Not Detect); Benzodiazepines Screen Urine Not Detected (Not Detect); Cannabinoid Screen Urine Not Detected (Not Detect); Cocaine Screen Urine Not Detected (Not Detect); Fentanyl, urine Not Detected (Not Detect); Opiate Screen Urine Not Detected (Not Detect); Phencyclidine Screen Urine POSITIVE (Not Detect)
== END 2022-03-06 22:18 | disposition home or self-care (01) ==
PROVIDERS: Physician Assistant; Emergency Provider Emergency Medicine Emergency Medical Services
DX: F16.10 Hallucinogen abuse, uncomplicated (principal); F12.90 Cannabis use, unspecified, uncomplicated; F11.90 Opioid use, unspecified, uncomplicated; J45.909 Unspecified asthma, uncomplicated; F17.210 Nicotine dependence, cigarettes, uncomplicated; Z20.822 Contact with and (suspected) exposure to COVID-19
CPT/HCPCS: 80048; 80307; 82077; 85025; 87635; 99284

== ENCOUNTER 2022-03-09 07:16 | Outpatient (REF) | payer OTHER, SELFPAY | END 2022-03-09 07:17 | disposition home or self-care (01) | LOC: HO.HOSX 07:16 | PROVIDERS: Visit Provider Physician Assistant | DX: Z13.89 Encounter for screening for other disorder (principal) ==

== ENCOUNTER → 2022-03-10 15:59 | Outpatient (BNVA) | payer OTHER, SELFPAY | PROVIDERS: PCP Internal Medicine; Visit Provider Internal Medicine | DX: Z95.2 Presence of prosthetic heart valve (principal); Z79.01 Long term (current) use of anticoagulants; Z51.81 Encounter for therapeutic drug level monitoring | CPT/HCPCS: 85610; 99211 ==

== ENCOUNTER → 2022-03-24 15:13 | Outpatient (BNVA) | payer OTHER, SELFPAY | PROVIDERS: PCP Internal Medicine; Visit Provider Internal Medicine | DX: Z95.2 Presence of prosthetic heart valve (principal); Z79.01 Long term (current) use of anticoagulants; Z51.81 Encounter for therapeutic drug level monitoring | CPT/HCPCS: 85610; 99211 ==

== ENCOUNTER → 2022-04-07 15:41 | Outpatient (BNVA) | payer OTHER, SELFPAY | PROVIDERS: PCP Internal Medicine; Visit Provider Internal Medicine | DX: Z95.2 Presence of prosthetic heart valve (principal); Z79.01 Long term (current) use of anticoagulants; Z51.81 Encounter for therapeutic drug level monitoring | CPT/HCPCS: 85610; 99211 ==

== ENCOUNTER → 2022-04-29 15:37 | Outpatient (BNVA) | payer OTHER, SELFPAY | PROVIDERS: PCP Internal Medicine; Visit Provider Internal Medicine | DX: Z95.2 Presence of prosthetic heart valve (principal); Z79.01 Long term (current) use of anticoagulants; Z51.81 Encounter for therapeutic drug level monitoring | CPT/HCPCS: 85610; 99211 ==

== ENCOUNTER → 2022-05-20 14:50 | Outpatient (BNVA) | payer OTHER, SELFPAY | PROVIDERS: PCP Internal Medicine; Visit Provider Internal Medicine | DX: Z95.2 Presence of prosthetic heart valve (principal); Z51.81 Encounter for therapeutic drug level monitoring; Z79.01 Long term (current) use of anticoagulants | CPT/HCPCS: 85610; 99211 ==

== ENCOUNTER 2022-05-20 16:10 | Outpatient (REF) | payer OTHER, SELFPAY ==
[2022-05-20 18:11] LABS: Alanine Aminotransferase 24 U/L (0-40); Aspartate Amino Transferase 28 U/L (5-37); Cholesterol 219 mg/dL; HDL Cholesterol 38 mg/dL; LDL Cholesterol Calculated 164 mg/dl; Triglycerides 87 mg/dL
== END 2022-05-20 16:11 | disposition home or self-care (01) ==
LOC: HO.LAB 16:10
PROVIDERS: PCP Internal Medicine; Visit Provider Internal Medicine Cardiovascular Disease
DX: E78.5 Hyperlipidemia, unspecified (principal)
CPT/HCPCS: 36415; 80061; 84450; 84460

== ENCOUNTER → 2022-05-31 15:23 | Outpatient (BNVA) | payer OTHER, SELFPAY | PROVIDERS: PCP Internal Medicine; Visit Provider Internal Medicine | DX: Z95.2 Presence of prosthetic heart valve (principal); Z79.01 Long term (current) use of anticoagulants; Z51.81 Encounter for therapeutic drug level monitoring | CPT/HCPCS: 85610; 99211 ==

== ENCOUNTER → 2022-06-10 14:34 | Outpatient (BNVA) | payer OTHER, SELFPAY | PROVIDERS: PCP Internal Medicine; Visit Provider Internal Medicine | DX: Z95.2 Presence of prosthetic heart valve (principal); Z79.01 Long term (current) use of anticoagulants; Z51.81 Encounter for therapeutic drug level monitoring | CPT/HCPCS: 85610; 99211 ==

== ENCOUNTER 2022-08-17 15:01 | Inpatient (IN) | payer OTHER, SELFPAY ==
--- NOTE | ~2022-08-17 | CT_ITS ---
EXAMINATION: CT HEAD WITHOUT CONTRAST CLINICAL INFORMATION: Elevated INR, headache COMPARISON: 06/18/2020 TECHNIQUE: Contiguous axial imaging was performed from the skull base to vertex without intravenous administration of contrast. This CT examination was performed using dose optimization techniques as appropriate, variously including the following: *Automated exposure control *Adjustment of mA and/or kV according to patient size (this includes techniques or standardized protocols for targeted exams where dose is matched to indication/reason for exam; i.e. extremities or head) *Use of iterative reconstruction technique DLP: 772 mGy-cm FINDINGS: There is no evidence of acute intracranial hemorrhage or territorial infarction. No abnormal mass-effect or midline shift is seen. Brooke to white matter differentiation is well preserved. No extra-axial fluid collections are identified. The ventricles are normal in size. There is no abnormal attenuation within the brain parenchyma. The osseous structures and soft tissues are normal. The mastoid air cells and visualized portions of the paranasal sinuses are well-aerated. CT/CT head/brain wo IV con IMPRESSION: No acute intracranial pathology.
--- NOTE | ~2022-08-17 | XR_ITS ---
EXAMINATION: XR CHEST CLINICAL INFORMATION: Weakness, shortness of breath COMPARISON: 03/06/2019 TECHNIQUE: Frontal view of the chest was obtained. FINDINGS: No acute finding. There has been a median sternotomy here. Hardware overlying the heart. There is no failure or infiltrate. There is no effusion. The cardiac silhouette is comparable. The hilar structures are comparable. XR/XR chest 1V IMPRESSION: No acute finding.
[2022-08-17 15:41] VITALS: BP 107/60; PULSE 108; RESP 20; TEMP 36.7; O2SAT 96; BMI 27.5
[2022-08-17] MEDS: Ondansetron ODT 4 MG TAB.RAPDIS TRANSLINGU (15:44)
[2022-08-17 16:54] LABS: Hematocrit 45.3 % (42.0-52.0); Hemoglobin 14.8 g/dl (14.0-18.0); Mean Corpuscular HGB Conc 32.7 g/dl (31.0-36.0); Mean Corpuscular Hemoglobin 26.2 pg (27.0-33.0); Mean Corpuscular Volume 80.3 fL (80.0-98.0); Mean Platelet Volume 11.5 fL (9.4-12.4); Platelet Count 163 X10*3/uL (160-400); Red Blood Count 5.64 X10*6/uL (4.60-5.80); White Blood Count 15.2 X10*3/uL (4.8-10.8)
[2022-08-17 17:09] LABS: COVID-19 Test Negative (Negative)
[2022-08-17 17:20] LABS: Alanine Aminotransferase 22 U/L (0-40); Albumin Level 4.3 g/dL (3.5-5.0); Alkaline Phosphatase 94 U/L (39-117); Anion Gap 18 (12-20); Aspartate Amino Transferase 28 U/L (5-37); Bilirubin Direct 0.6 mg/dL (0.0-0.5); Bilirubin Total 1.1 mg/dL (0.0-1.0); Blood Urea Nitrogen 24 mg/dL (9-16); Calcium 9.2 mg/dL (8.4-10.2); Carbon Dioxide 27 mmol/L (22-29); Chloride 96 mmol/L (96-108); Creatinine Clr Calc Pharmacy 88.2; Estimated Glomerular Filt Rate 58; Glucose Random 142 mg/dL (60-115); Lipase 5 U/L (8-78); Potassium 4.2 mmol/L (3.3-5.1); Sodium 137 mmol/L (135-145); Total Protein 7.9 g/dL (6.5-8.0)
--- NOTE | 2022-08-17 21:12 | ED_ITS ---
HPI - Nausea/Vomiting/Diarrhea General Chief complaint: Nausea/Vomiting/Diarrhea <DENIS Gill - Last Filed: 08/18/22 00:44> Stated complaint: body pain/dizziness/nausea <DENIS Gill Last Filed: 08/18/22 0 0:44> Time Seen by Provider: 08/17/22 20:40 <DENIS Gill Last Filed: 08/18/22 00:44> Source: patient <DENIS Gill Last Filed: 08/18/22 00:44> Mode of arrival: ambulatory <DENIS Gill Last Filed: 08/18/22 00:44> Limitations: no limitations <DENIS Gill Last Filed: 08/18/22 00:44> History of Present Illness HPI Narrative: 37-year-old male history of mitral valve replacement currently on Coumadin presenting to the emergency department complaints of nausea, vomiting, fatigue, malaise and weakness x2 days progressively worsening. Patient tells me has not been able to keep anything down by mouth because he ends up vomiting, he tells me he has vomited multiple times throughout the day, clear yellow like substance without blood. Patient tells me his doctor tested him for flu/COVID/RSV and swab his throat all of which were negative. He tells me that he is also having diffuse body aches and pains. He also reports lightheadedness particularly with positional changes, denies room spinning sensation. He tells me his children were sick with viral infections last week however no one is sick at home right now, no known sick contacts. Patient denies headaches, vision changes, chest pain, shortness of breath, fevers, chills, abdominal pain, diarrhea, changes in urination. Patient denies marijuana and drug use and denies alcohol use. <DENIS Gill Last Filed: 08/18/22 00:44> MD elicited complaint: nausea and vomiting <DENIS Gill Last Filed: 08/18/22 00:44> Related Data Home medications: Home Medications Medication Instructions Recorded Confirmed buprenorphine 8 mg-naloxone 2 mg 1 film sublingual DAILY 11/13/20 05/31/22 sublingual film albuterol sulfate 90 mcg/actuation 2 puff inhalation NEEDED PRN 02/11/21 05/31/22 aerosol inhaler Dyspnea cholecalciferol (vitamin D3) 50 50 mcg PO DAILY 02/11/21 05/31/22 mcg (2,000 unit) tablet fluticasone propionate 50 1 spray intranasal BID 02/11/21 05/31/22 mcg/actuation nasal spray,suspension hydroxyzine pamoate 25 mg capsule 25 mg PO TID PRN anxiety 02/11/21 05/31/22 naloxone 4 mg/actuation nasal spray 4 mg intranasal DAILY PRN Opioid 02/11/21 05/31/22 Overdose trazodone 50 mg tablet 50 mg PO BEDTIME 02/11/21 05/31/22 venlafaxine 75 mg capsule,extended 75 mg PO DAILY 02/11/21 05/31/22 release 24 hr warfarin 5 mg tablet 5 mg PO WEFR 05/25/21 06/10/22 warfarin 7.5 mg tablet 7.5 mg PO SUMOTUTHSA 05/25/21 06/10/22 ferrous sulfate 325 mg (65 mg 0 mg PO 01/27/22 05/31/22 iron) tablet (FeroSul) terbinafine HCl 250 mg tablet 250 mg PO DAILY 01/27/22 05/31/22 acetaminophen 650 mg 0 mg PO 03/05/22 05/31/22 tablet,extended release (Mapap Arthritis Pain) Previous Rx's Medication Instructions Recorded ibuprofen 600 mg tablet 600 mg PO QID PRN fever or pain 11/06/21 #20 tabs <DENIS Gill - Last Filed: 08/18/22 00:44> Allergies/Adverse reactions: Allergies Allergy/AdvReac Type Severity Reaction Status Date / Time hydrocodone [From VICODIN] Allergy Unknown GI UPSET Verified 06/10/22 14:46 <DENIS Gill - Last Filed: 08/18/22 00:44> Review of Systems Review of Systems: Constitutional : No Weight loss, No Fever, No Chills, + Fatigue, + Malaise ENT/Mouth : No sore throat, No Rhinorrhea Eyes: No Eye Pain, No Swelling, No Redness Cardiovascular : No Chest Pain, No SOB, No Dyspnea on Exertion, No Orthopnea, No Edema, No Palpitations Respiratory : No Cough, No Sputum, No Wheezing Gastrointestinal : + Nausea, + Vomiting, No Diarrhea, No Constipation, No abd ominal Pain, No Hematochezia, No Melena Genitourinary : No Dysuria, No Urinary Frequency, No Hematuria, Musculoskeletal : No joint pain, No Myalgias, No Joint Swelling Skin : No Skin Lesions, No rash Neuro :+ Weakness, No Numbness, No Dizziness, No Headache All other systems reviewed and are negative <DENIS Gill - Last Filed: 08/18/22 00:44> Yes all other systems are reviewed and are negative <DENIS Gill - Last Filed: 08/18/22 00:44> [facility] Past Medical History Attestation statement: The following information was validated with the patient. <DENIS Gill - Last Filed: 08/18/22 00:44> Source: old records reviewed and nursing notes reviewed <DENIS Gill - Last Filed: 08/18/22 00:44> Medical History: Medical History Asthma Current use of anticoagulant therapy Opioid use disorder <DENIS Gill - Last Filed: 08/18/22 00:44> Surgical History: Surgical History Heart valve replaced History of heart valve replacement with mechanical valve Presence of other heart-valve replacement <DENIS Gill - Last Filed: 08/18/22 00:44> Social History Social History: Social History Household Members: Family Housing: House Do you presently have visiting nurse or other home services: Yes Alcohol intake: current Alcohol intake frequency: a few times a month Alcohol type: beer Patient Tobacco Use Status: Never used Tobacco Tobacco use type: Cigarette Cigarettes Per Day: 5 Use of substances other than those prescribed or required for medical reasons: No Substance Use Type: Marijuana Advance Directives: No Advance Directives Information Provided: No service: No Current occupational status: unemployed 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 <DENIS Gill - Last Filed: 08/18/22 00:44> Vital Signs: Last Vital Signs Temp 98.1 F 08/17/22 15:41 Pulse 89 08/18/22 05:13 Resp 16 08/18/22 05:13 BP 142/73 H 08/18/22 05:13 Pulse Ox 96 08/18/22 05:13 O2 Del Method 08/18/22 05:13 BMI result Body Mass Index 27.5 <Donnell Macias MD - Last Filed: 08/18/22 07:03> Appearance: Alert.? Oriented X3.? No acute distress.? Head: Normocephalic, atraumatic, no step-offs or deformities Eyes: Pupils equal, round and reactive to light.? Extraocular movements intact, pain-free and without nystagmus. ENT: Pharynx normal.? Dry mucous membranes Neck: Normal inspection.? Neck supple.? Negative Kernig and Brudzinski. No meningeal signs CVS: Normal heart rate and rhythm.? Pulses normal.? Respiratory: No respiratory distress.? Breath sounds normal.? Abdomen: Soft and nontender.? Skin: Skin warm and dry.? Normal skin color.? Normal skin turgor.? Extremities: No lower extremity edema.? No calf ttp. 5/5 strength to bilateral upper and lower extremities Back: No midline tenderness, no C-spine tenderness, full range of motion, no CVA tenderness bilaterally Neuro: Oriented X 3.? No motor deficit.? No sensory deficit. CN 2-12 intact . Patient ambulating with steady gait normal coordination. Normal [id number], steady tandem gait. Negative pronator drift, normal Romberg. <DENIS Gill - Last Filed: 08/18/22 00:44> Course Reevaluation(s) Reevaluation #1: Patient with significant leukocytosis likely secondary to nausea and vomiting. Chemistry with elevated BUN and slightly higher creatinine than usual likely secondary to dehydration and GI losses, total bilirubin 1.1 however not tender to palpation of abdomen, no need for imaging at this time. Glucose is noted to be 142, patient receiving IV hydration. Total creatinine kinase 202, not consistent with rhabdo. Lipase within normal limits unlikely pancreatitis. <DENIS Gill - Last Filed: 08/18/22 00:44> Time: 21:31 <DENIS Gill - Last Filed: 08/18/22 00:44> Reevaluation #2: PT/INR elevated will ask to hold coumadin for a day and folow up wit coumadin clinic. <DENIS Gill - Last Filed: 08/18/22 00:44> Time: 23:12 <DENIS Gill - Last Filed: 08/18/22 00:44> Reevaluation #3: Patient's ESR 7 however CRP markedly elevated 31.21. CT negative. Orthostatics negative. Sign-out given to pending UA/tox, cmp, cpk,flu/covid/rsv revaluation. <DENIS Gill - Last Filed: 08/18/22 00:44> Time: 00:42 <DENIS Gill - Last Filed: 08/18/22 00:44> MDM - Nausea/Vomiting/Diarrhea MDM Narrative Medical decision making narrative: 2100 37-year-old male presents with nausea, vomiting, malaise, fatigue and weakness x2 days. Unable to tolerate p.o.. Denies alcohol and drug use. Patient tells me he is on Coumadin for his mitral valve replacement, he tells me he has not had an INR done for a while. Physical examination benign however patient does have dry mucous membranes. Likely viral syndrome. Unlikely acute abdomen, stroke, posterior stroke, meningitis, encephalitis. Will rule out rhabdo, electrolyte abnormalities, orthostatic hypotension. Plan at this time is labs, imaging, PT INR, CPK, EKG. Patient is not having abdominal pain, no need for imaging of abdomen at this time. NIHSS- 0 GCS-15 <DENIS Gill - Last Filed: 08/18/22 00:44> 2100 37-year-old male presents with nausea, vomiting, malaise, fatigue and weakness x2 days. Unable to tolerate p.o.. Denies alcohol and drug use. Patient tells me he is on Coumadin for his mitral valve replacement, he tells me he has not had an INR done for a while. Physical examination benign however patient does have dry mucous membranes. Likely viral syndrome. Unlikely acute abdomen, stroke, posterior stroke, meningitis, encephalitis. Will rule out rhabdo, electrolyte abnormalities, orthostatic hypotension. Plan at this time is labs, imaging, PT INR, CPK, EKG. Patient is not having abdominal pain, no need for imaging of abdomen at this time. 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 Will start patient on IV antibiotic vanco and cefepime because of high risk of bacteremia because of prosthetic valve and admit <Donnell Macias MD - Last Filed: 08/18/22 07:03> Medical Records Attestation: I reviewed the patient's medical records. <DENIS Gill - Last Filed: 08/18/22 00:44> Lab Data Attestation: I reviewed the patient's lab results. <DENIS Gill - Last Filed: 08/18/22 00:44> Result diagrams: : 08/17/22 16:48 08/18/22 01:25 <DENIS Gill - Last Filed: 08/18/22 00:44> Labs: Lab Results 08/17/22 08/17/22 08/17/22 Range/Units 16:48 16:48 16:48 WBC 15.2 H (4.8-10.8) X10*3/uL RBC 5.64 (4.60-5.80) X10*6/uL Hgb 14.8 (14.0-18.0) g/dl Hct 45.3 (42.0-52.0) % MCV 80.3 (80.0-98.0) fL MCH 26.2 L (27.0-33.0) pg MCHC 32.7 (31.0-36.0) g/dl RDW 14.0 (11.0-16.0) % Plt Count 163 D (160-400) X10*3/uL MPV 11.5 (9.4-12.4) fL Absolute Nucleated RBC 0.000 (0.0-0.012) X10*3/uL Nucleated RBC % (auto) 0.0 (0.0-0.2) /100WBC ESR (0-15) MM/HR PT (10.0-13.1) SEC INR (0.9-1.1) Sodium 137 (135-145) mmol/L Potassium 4.2 (3.3-5.1) mmol/L Chloride 96 (96-108) mmol/L Carbon Dioxide 27 (22-29) mmol/L Anion Gap 18 (12-20) BUN 24 H (9-16) mg/dL Creatinine 1.37 (0.5-1.4) mg/dL Estim Creat Clear Calc 88.2 Estimated GFR 58 Random Glucose 142 H D (60-115) mg/dL Calcium 9.2 (8.4-10.2) mg/dL Total Bilirubin 1.1 H (0.0-1.0) mg/dL Direct Bilirubin 0.6 H (0.0-0.5) mg/dL AST 28 (5-37) U/L ALT 22 (0-40) U/L Alkaline Phosphatase 94 (39-117) U/L Total Creatine Kinase 202 H (38-174) U/L C-Reactive Protein 31.21 H (< or = 0.50) mg/dL Total Protein 7.9 (6.5-8.0) g/dL Albumin 4.3 (3.5-5.0) g/dL Lipase 5 L (8-78) U/L Urine Color Urine Appearance Urine pH (5.0-9.0) Ur Specific Cummings (1.005-1.025) Urine Protein (Neg-Trace) mg/dL Urine Glucose (UA) (Negative) mg/dL Urine Ketones (Negative) mg/dL Urine Blood (Negative) Urine Nitrite (Negative) Ur Leukocyte Esterase (Negative) Urine RBC (0-2) /HPF Urine WBC (0-5) /HPF Ur Squamous Epith Cells (0-2) /HPF Urine Bacteria (None Seen) Hyaline Casts (0-2) /LPF Urine Opiates Screen (Not Detect) Urine Fentanyl Screen (Not Detect) Ur Barbiturates Screen (Not Detect) Ur Phencyclidine Scrn (Not Detect) Ur Amphetamines Screen (Not Detect) U Benzodiazepines Scrn (Not Detect) Urine Cocaine Screen (Not Detect) U Marijuana (THC) Screen (Not Detect) COVID-19 ([facility]) Negative (Negative) COVID-19 Clin Com See Note Influenza Type A (PCR) (Negative) Influenza Type B (PCR) (Negative) RSV RNA Qual (PCR) (Negative) SARS-CoV-2 RNA (RT-PCR) (Negative) 08/17/22 08/17/22 08/18/22 Range/Units 16:48 22:41 01:22 WBC (4.8-10.8) X10*3/uL RBC (4.60-5.80) X10*6/uL Hgb (14.0-18.0) g/dl Hct (42.0-52.0) % MCV (80.0-98.0) fL MCH (27.0-33.0) pg MCHC (31.0-36.0) g/dl RDW (11.0-16.0) % Plt Count (160-400) X10*3/uL MPV (9.4-12.4) fL Absolute Nucleated RBC (0.0-0.012) X10*3/uL Nucleated RBC % (auto) (0.0-0.2) /100WBC ESR 7 (0-15) MM/HR PT 70.4 H (10.0-13.1) SEC INR 5.7 H* (0.9-1.1) Sodium (135-145) mmol/L Potassium (3.3-5.1) mmol/L Chloride (96-108) mmol/L Carbon Dioxide (22-29) mmol/L Anion Gap (12-20) BUN (9-16) mg/dL Creatinine (0.5-1.4) mg/dL Estim Creat Clear Calc Estimated GFR Random Glucose (60-115) mg/dL Calcium (8.4-10.2) mg/dL Total Bilirubin (0.0-1.0) mg/dL Direct Bilirubin (0.0-0.5) mg/dL AST (5-37) U/L ALT (0-40) U/L Alkaline Phosphatase (39-117) U/L Total Creatine Kinase (38-174) U/L C-Reactive Protein (< or = 0.50) mg/dL Total Protein (6.5-8.0) g/dL Albumin (3.5-5.0) g/dL Lipase (8-78) U/L Urine Color Dark Yellow Urine Appearance Cloudy Urine pH 5.0 (5.0-9.0) Ur Specific Cummings 1.025 (1.005-1.025) Urine Protein 30 (1+) H (Neg-Trace) mg/dL Urine Glucose (UA) Negative (Negative) mg/dL Urine Ketones Trace (Negative) mg/dL Urine Blood Large (3+) H (Negative) Urine Nitrite Negative (Negative) Ur Leukocyte Esterase Negative (Negative) Urine RBC 6-10 H (0-2) /HPF Urine WBC 0-5 (0-5) /HPF Ur Squamous Epith Cells 3-5 (0-2) /HPF Urine Bacteria None Seen (None Seen) Hyaline Casts 0-2 (0-2) /LPF Urine Opiates Screen (Not Detect) Urine Fentanyl Screen (Not Detect) Ur Barbiturates Screen (Not Detect) Ur Phencyclidine Scrn (Not Detect) Ur Amphetamines Screen (Not Detect) U Benzodiazepines Scrn (Not Detect) Urine Cocaine Screen (Not Detect) U Marijuana (THC) Screen (Not Detect) COVID-19 ([facility]) (Negative) COVID-19 Clin Com Influenza Type A (PCR) (Negative) Influenza Type B (PCR) (Negative) RSV RNA Qual (PCR) (Negative) SARS-CoV-2 RNA (RT-PCR) (Negative) 08/18/22 08/18/22 08/18/22 Range/Units 01:23 01:23 01:25 WBC (4.8-10.8) X10*3/uL RBC (4.60-5.80) X10*6/uL Hgb (14.0-18.0) g/dl Hct (42.0-52.0) % MCV (80.0-98.0) fL MCH (27.0-33.0) pg MCHC (31.0-36.0) g/dl RDW (11.0-16.0) % Plt Count (160-400) X10*3/uL MPV (9.4-12.4) fL Absolute Nucleated RBC (0.0-0.012) X10*3/uL Nucleated RBC % (auto) (0.0-0.2) /100WBC ESR (0-15) MM/HR PT (10.0-13.1) SEC INR (0.9-1.1) Sodium 134 L (135-145) mmol/L Potassium 3.3 D (3.3-5.1) mmol/L Chloride 99 (96-108) mmol/L Carbon Dioxide 22 (22-29) mmol/L Anion Gap 16 (12-20) BUN 27 H (9-16) mg/dL Creatinine 1.18 (0.5-1.4) mg/dL Estim Creat Clear Calc 102.4 Estimated GFR > 60 Random Glucose 146 H (60-115) mg/dL Calcium 8.5 D (8.4-10.2) mg/dL Total Bilirubin 1.3 H (0.0-1.0) mg/dL Direct Bilirubin (0.0-0.5) mg/dL AST 39 H (5-37) U/L ALT 27 (0-40) U/L Alkaline Phosphatase 87 (39-117) U/L Total Creatine Kinase (38-174) U/L C-Reactive Protein (< or = 0.50) mg/dL Total Protein 7.3 (6.5-8.0) g/dL Albumin 3.9 (3.5-5.0) g/dL Lipase (8-78) U/L Urine Color Urine Appearance Urine pH (5.0-9.0) Ur Specific Cummings (1.005-1.025) Urine Protein (Neg-Trace) mg/dL Urine Glucose (UA) (Negative) mg/dL Urine Ketones (Negative) mg/dL Urine Blood (Negative) Urine Nitrite (Negative) Ur Leukocyte Esterase (Negative) Urine RBC (0-2) /HPF Urine WBC (0-5) /HPF Ur Squamous Epith Cells (0-2) /HPF Urine Bacteria (None Seen) Hyaline Casts (0-2) /LPF Urine Opiates Screen Not Detected (Not Detect) Urine Fentanyl Screen Not Detected (Not Detect) Ur Barbiturates Screen Not Detected (Not Detect) Ur Phencyclidine Scrn POSITIVE H (Not Detect) Ur Amphetamines Screen Not Detected (Not Detect) U Benzodiazepines Scrn Not Detected (Not Detect) Urine Cocaine Screen Not Detected (Not Detect) U Marijuana (THC) Screen Not Detected (Not Detect) COVID-19 ([facility]) (Negative) COVID-19 Clin Com Influenza Type A (PCR) NEGATIVE (Negative) Influenza Type B (PCR) NEGATIVE (Negative) RSV RNA Qual (PCR) NEGATIVE (Negative) SARS-CoV-2 RNA (RT-PCR) NEGATIVE (Negative) <DENIS Gill - Last Filed: 08/18/22 00:44> Lab Results 08/17/22 08/17/22 08/17/22 Range/Units 16:48 16:48 16:48 WBC 15.2 H (4.8-10.8) X10*3/uL RBC 5.64 (4.60-5.80) X10*6/uL Hgb 14.8 (14.0-18.0) g/dl Hct 45.3 (42.0-52.0) % MCV 80.3 (80.0-98.0) fL MCH 26.2 L (27.0-33.0) pg MCHC 32.7 (31.0-36.0) g/dl RDW 14.0 (11.0-16.0) % Plt Count 163 D (160-400) X10*3/uL MPV 11.5 (9.4-12.4) fL Absolute Nucleated RBC 0.000 (0.0-0.012) X10*3/uL Nucleated RBC % (auto) 0.0 (0.0-0.2) /100WBC ESR (0-15) MM/HR PT (10.0-13.1) SEC INR (0.9-1.1) Sodium 137 (135-145) mmol/L Potassium 4.2 (3.3-5.1) mmol/L Chloride 96 (96-108) mmol/L Carbon Dioxide 27 (22-29) mmol/L Anion Gap 18 (12-20) BUN 24 H (9-16) mg/dL Creatinine 1.37 (0.5-1.4) mg/dL Estim Creat Clear Calc 88.2 Estimated GFR 58 Random Glucose 142 H D (60-115) mg/dL Calcium 9.2 (8.4-10.2) mg/dL Total Bilirubin 1.1 H (0.0-1.0) mg/dL Direct Bilirubin 0.6 H (0.0-0.5) mg/dL AST 28 (5-37) U/L ALT 22 (0-40) U/L Alkaline Phosphatase 94 (39-117) U/L Total Creatine Kinase 202 H (38-174) U/L C-Reactive Protein 31.21 H (< or = 0.50) mg/dL Total Protein 7.9 (6.5-8.0) g/dL Albumin 4.3 (3.5-5.0) g/dL Lipase 5 L (8-78) U/L Urine Color Urine Appearance Urine pH (5.0-9.0) Ur Specific Cummings (1.005-1.025) Urine Protein (Neg-Trace) mg/dL Urine Glucose (UA) (Negative) mg/dL Urine Ketones (Negative) mg/dL Urine Blood (Negative) Urine Nitrite (Negative) Ur Leukocyte Esterase (Negative) Urine RBC (0-2) /HPF Urine WBC (0-5) /HPF Ur Squamous Epith Cells (0-2) /HPF Urine Bacteria (None Seen) Hyaline Casts (0-2) /LPF Urine Opiates Screen (Not Detect) Urine Fentanyl Screen (Not Detect) Ur Barbiturates Screen (Not Detect) Ur Phencyclidine Scrn (Not Detect) Ur Amphetamines Screen (Not Detect) U Benzodiazepines Scrn (Not Detect) Urine Cocaine Screen (Not Detect) U Marijuana (THC) Screen (Not Detect) COVID-19 ([facility]) Negative (Negative) COVID-19 Clin Com See Note Influenza Type A (PCR) (Negative) Influenza Type B (PCR) (Negative) RSV RNA Qual (PCR) (Negative) SARS-CoV-2 RNA (RT-PCR) (Negative) 08/17/22 08/17/22 08/18/22 Range/Units 16:48 22:41 01:22 WBC (4.8-10.8) X10*3/uL RBC (4.60-5.80) X10*6/uL Hgb (14.0-18.0) g/dl Hct (42.0-52.0) % MCV (80.0-98.0) fL MCH (27.0-33.0) pg MCHC (31.0-36.0) g/dl RDW (11.0-16.0) % Plt Count (160-400) X10*3/uL MPV (9.4-12.4) fL Absolute Nucleated RBC (0.0-0.012) X10*3/uL Nucleated RBC % (auto) (0.0-0.2) /100WBC ESR 7 (0-15) MM/HR PT 70.4 H (10.0-13.1) SEC INR 5.7 H* (0.9-1.1) Sodium (135-145) mmol/L Potassium (3.3-5.1) mmol/L Chloride (96-108) mmol/L Carbon Dioxide (22-29) mmol/L Anion Gap (12-20) BUN (9-16) mg/dL Creatinine (0.5-1.4) mg/dL Estim Creat Clear Calc Estimated GFR Random Glucose (60-115) mg/dL Calcium (8.4-10.2) mg/dL Total Bilirubin (0.0-1.0) mg/dL Direct Bilirubin (0.0-0.5) mg/dL AST (5-37) U/L ALT (0-40) U/L Alkaline Phosphatase (39-117) U/L Total Creatine Kinase (38-174) U/L C-Reactive Protein (< or = 0.50) mg/dL Total Protein (6.5-8.0) g/dL Albumin (3.5-5.0) g/dL Lipase (8-78) U/L Urine Color Dark Yellow Urine Appearance Cloudy Urine pH 5.0 (5.0-9.0) Ur Specific Cummings 1.025 (1.005-1.025) Urine Protein 30 (1+) H (Neg-Trace) mg/dL Urine Glucose (UA) Negative (Negative) mg/dL Urine Ketones Trace (Negative) mg/dL Urine Blood Large (3+) H (Negative) Urine Nitrite Negative (Negative) Ur Leukocyte Esterase Negative (Negative) Urine RBC 6-10 H (0-2) /HPF Urine WBC 0-5 (0-5) /HPF Ur Squamous Epith Cells 3-5 (0-2) /HPF Urine Bacteria None Seen (None Seen) Hyaline Casts 0-2 (0-2) /LPF Urine Opiates Screen (Not Detect) Urine Fentanyl Screen (Not Detect) Ur Barbiturates Screen (Not Detect) Ur Phencyclidine Scrn (Not Detect) Ur Amphetamines Screen (Not Detect) U Benzodiazepines Scrn (Not Detect) Urine Cocaine Screen (Not Detect) U Marijuana (THC) Screen (Not Detect) COVID-19 ([facility]) (Negative) COVID-19 Clin Com Influenza Type A (PCR) (Negative) Influenza Type B (PCR) (Negative) RSV RNA Qual (PCR) (Negative) SARS-CoV-2 RNA (RT-PCR) (Negative) 08/18/22 08/18/22 08/18/22 Range/Units 01:23 01:23 01:25 WBC (4.8-10.8) X10*3/uL RBC (4.60-5.80) X10*6/uL Hgb (14.0-18.0) g/dl Hct (42.0-52.0) % MCV (80.0-98.0) fL MCH (27.0-33.0) pg MCHC (31.0-36.0) g/dl RDW (11.0-16.0) % Plt Count (160-400) X10*3/uL MPV (9.4-12.4) fL Absolute Nucleated RBC (0.0-0.012) X10*3/uL Nucleated RBC % (auto) (0.0-0.2) /100WBC ESR (0-15) MM/HR PT (10.0-13.1) SEC INR (0.9-1.1) Sodium 134 L (135-145) mmol/L Potassium 3.3 D (3.3-5.1) mmol/L Chloride 99 (96-108) mmol/L Carbon Dioxide 22 (22-29) mmol/L Anion Gap 16 (12-20) BUN 27 H (9-16) mg/dL Creatinine 1.18 (0.5-1.4) mg/dL Estim Creat Clear Calc 102.4 Estimated GFR > 60 Random Glucose 146 H (60-115) mg/dL Calcium 8.5 D (8.4-10.2) mg/dL Total Bilirubin 1.3 H (0.0-1.0) mg/dL Direct Bilirubin (0.0-0.5) mg/dL AST 39 H (5-37) U/L ALT 27 (0-40) U/L Alkaline Phosphatase 87 (39-117) U/L Total Creatine Kinase (38-174) U/L C-Reactive Protein (< or = 0.50) mg/dL Total Protein 7.3 (6.5-8.0) g/dL Albumin 3.9 (3.5-5.0) g/dL Lipase (8-78) U/L Urine Color Urine Appearance Urine pH (5.0-9.0) Ur Specific Cummings (1.005-1.025) Urine Protein (Neg-Trace) mg/dL Urine Glucose (UA) (Negative) mg/dL Urine Ketones (Negative) mg/dL Urine Blood (Negative) Urine Nitrite (Negative) Ur Leukocyte Esterase (Negative) Urine RBC (0-2) /HPF Urine WBC (0-5) /HPF Ur Squamous Epith Cells (0-2) /HPF Urine Bacteria (None Seen) Hyaline Casts (0-2) /LPF Urine Opiates Screen Not Detected (Not Detect) Urine Fentanyl Screen Not Detected (Not Detect) Ur Barbiturates Screen Not Detected (Not Detect) Ur Phencyclidine Scrn POSITIVE H (Not Detect) Ur Amphetamines Screen Not Detected (Not Detect) U Benzodiazepines Scrn Not Detected (Not Detect) Urine Cocaine Screen Not Detected (Not Detect) U Marijuana (THC) Screen Not Detected (Not Detect) COVID-19 ([facility]) (Negative) COVID-19 Clin Com Influenza Type A (PCR) NEGATIVE (Negative) Influenza Type B (PCR) NEGATIVE (Negative) RSV RNA Qual (PCR) NEGATIVE (Negative) SARS-CoV-2 RNA (RT-PCR) NEGATIVE (Negative) <Donnell Macias MD - Last Filed: 08/18/22 07:03> Critical Care Time Critical Care Time Critical Care Time: No <DENIS Gill - Last Filed: 08/18/22 00:44> Discharge Plan Discharge Clinical Impression: SIRS (systemic inflammatory response syndrome), Myalgia, Nausea & vomiting <DENIS Glil - Last Filed: 08/18/22 00:44> Patient Disposition: Admitted As Inpatient <DENIS Gill - Last Filed: 08/18/22 00:44>
[2022-08-17] MEDS: 0.9 % Sodium Chloride 1,000 ML 999 ML IV (21:47)
[2022-08-17] MEDS: ondansetron HCL 4 MG/2 ML VIAL IVPUSH (21:51)
[2022-08-17 22:50] VITALS: BP 125/68; PULSE 106; RESP 16; O2SAT 99
[2022-08-17 22:58] VITALS: BP 124/70; PULSE 98
[2022-08-17 22:59] VITALS: BP 130/72; BP 133/67; PULSE 109; PULSE 127
[2022-08-17 23:02] LABS: Prothrombin Time 70.4 SEC (10.0-13.1)
[2022-08-17 23:06] LABS: INTERNATIONAL NORM RATIO 5.7 (0.9-1.1)
[2022-08-17 23:36] LABS: C Reactive Protein 31.21 mg/dL (< or = 0.50)
[2022-08-17] MEDS: Magnesium Hydrox/Alum Hydrox 30 ML ORAL.SUSP PO (23:47)
[2022-08-17 23:51] LABS: Erythrocyte Sedimentation Rate 7 MM/HR (0-15)
[2022-08-18] VITALS (15 sets, daily range): BP systolic 112–144; BP diastolic 58–100; PULSE 84–114; RESP 14–20; TEMP 36.7–38.4; O2SAT 92–99
[2022-08-18] MEDS: Acetaminophen 325 MG TABLET 650 MG PO ×3 (01:07→23:44)
[2022-08-18] MEDS: 0.9 % Sodium Chloride 1,000 ML 999 ML IV (01:07)
[2022-08-18 01:31] LABS: Appearance Urine Cloudy; Color Urine Dark Yellow; Glucose Urine UA Negative (Negative); Leukocyte Esterase Urine Negative (Negative); Nitrite Urine Negative (Negative); Specific Gravity - Urine 1.025 (1.005-1.025); UMIC TRIGGER UACC YES; Urine Blood Large (3+) (Negative); Urine Ketones Trace mg/dL (Negative); Urine Protein 30 (1+) mg/dL (Neg-Trace)
[2022-08-18 01:44] LABS: Bacteria Urine None Seen (None Seen); Hyaline Casts Urine 0-2 /LPF (0-2); WBC Urine 0-5 /HPF (0-5)
[2022-08-18 01:53] LABS: Amphetamine Screen Urine Not Detected (Not Detect); Barbiturates, Urine Not Detected (Not Detect); Benzodiazepines Screen Urine Not Detected (Not Detect); Cannabinoid Screen Urine Not Detected (Not Detect); Cocaine Screen Urine Not Detected (Not Detect); Fentanyl, urine Not Detected (Not Detect); Opiate Screen Urine Not Detected (Not Detect); Phencyclidine Screen Urine POSITIVE (Not Detect)
[2022-08-18 01:57] LABS: Alanine Aminotransferase 27 U/L (0-40); Albumin Level 3.9 g/dL (3.5-5.0); Alkaline Phosphatase 87 U/L (39-117); Anion Gap 16 (12-20); Aspartate Amino Transferase 39 U/L (5-37); Bilirubin Total 1.3 mg/dL (0.0-1.0); Blood Urea Nitrogen 27 mg/dL (9-16); Calcium 8.5 mg/dL (8.4-10.2); Carbon Dioxide 22 mmol/L (22-29); Chloride 99 mmol/L (96-108); Creatinine Clr Calc Pharmacy 102.4; Estimated Glomerular Filt Rate > 60; Glucose Random 146 mg/dL (60-115); Potassium 3.3 mmol/L (3.3-5.1); Sodium 134 mmol/L (135-145); Total Protein 7.3 g/dL (6.5-8.0)
[2022-08-18 02:08] LABS: Influenza A PCR NEGATIVE (Negative); Influenza B PCR NEGATIVE (Negative); Resp Syncy Virus RNA Qual PCR NEGATIVE (Negative); SARS COV2 PCR INHOUSE NEGATIVE (Negative)
[2022-08-18] MEDS: Buprenorphine/Naloxone 8/2 mg FILM 1 FILM SUBLINGUAL (02:44)
--- NOTE | 2022-08-18 05:20 | PC.NURSE ---
pt ambulated in hallway with slight nausea but stated his headache and joint pain has improved. pt has a ride home via family.
[2022-08-18 07:15] LABS: Lactic Acid 1.2 mmol/L (0.5-2.0)
[2022-08-18] MEDS: cefEPime HCl 2 GM in 0.9 % Sodium Chloride 50 ML IV (07:40)
[2022-08-18 07:57] LABS: Procalcitonin 18.33 ng/mL
[2022-08-18] MEDS: ondansetron HCL 4 MG/2 ML VIAL IVPUSH ×2 (08:14→23:44)
--- NOTE | 2022-08-18 08:58 | PHA.MEDREC ---
Pharmacy Consult ? Medication Reconciliation Pharmacy has completed the medication reconciliation. Of Note: patient on two different warfarin doses, patient relies on clinic. Patient told me he took his last warfarin on tuesday however does not know the dose.
--- NOTE | 2022-08-18 09:57 | P.HPHOSP_ITS ---
History of Present Illness Date of Service: 08/18/22 Chief Complaint: nausea and vomiting This is a 37 year old M with a PMH of mitral valve replacement on coumadin, asthma and chronic opiate dependence on Suboxone, who presents to the ED with a 2 day history of intractable nausea, vomiting and intolerance to oral intake. The patient reports his symptoms began 2 days CONSULTANT with nausea followed by non-bloody/non-bilious vomiting. He denies any abdominal pain, but does report heartburn symptoms which began after 5 bouts of vomitus. He reports the following day he felt feverish, but no objective temperatures reported at home. Sick contacts at home including children who had viral illness (respiratory and not GI) the week prior to admission. He states that he went to see his PCP at the [facility] on the day prior to admission. At the clinic, he reports he was tested for influenza/covid/strep throat which were all negative. However, he appeared ill and hence was directed to the ED. Work up in the ED shows significant luekocytosis without a definitive source of infection. His procalcitonin is greater than 18 and CRP greater than 30. His BUN/Cr ratio is elevated and clinically appears dehydrated. Due to his history of MVR, he has been initiated on empiric IV antibiotics and will be admitted for further care. Review of Systems Review of Systems: negative except HPI [facility] Medical History (Updated 08/18/22 @ 07:03 by Niranjan Arce MD) Asthma Current use of anticoagulant therapy Opioid use disorder Pertinent family history: Denies any significant FH Surgical History Heart valve replaced History of heart valve replacement with mechanical valve Presence of other heart-valve replacement Social History Household Members: Family Housing: House Do you presently have visiting nurse or other home services: Yes Alcohol intake: current Alcohol intake frequency: a few times a month Alcohol type: beer Patient Tobacco Use Status: Never used Tobacco Tobacco use type: Cigarette Cigarettes Per Day: 5 Use of substances other than those prescribed or required for medical reasons: No Substance Use Type: Marijuana Advance Directives: No Advance Directives Information Provided: No service: No Current occupational status: unemployed 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 Meds Allergies Allergy/AdvReac Type Severity Reaction Status Date / Time hydrocodone [From VICODIN] Allergy Unknown GI UPSET Verified 06/10/22 14:46 Active Medications: Current Medications Acetaminophen (Acetaminophen 325 Mg Tablet) 650 mg PO Q6H PRN PRN Reason: Pain, Mild (Pain Scale 1-3) Buprenorphine/Naloxone (Buprenorphine/Naloxone 8/2 Mg Film) 1 film SUBLINGUAL DAILY [facility] Lactated Ringer's (Lr) 1,000 mls @ 100 mls/hr IVCONT .Q10H KERI Stop: 08/19/22 05:59 Vancomycin HCl 1,000 mg/ (Sodium Chloride) 270 mls @ 270 mls/hr IV Q12H KERI Cefepime HCl 1 gm/ Sodium (Chloride) 50 mls @ 100 mls/hr IV Q8H [facility] Non-Formulary Medication (Ferrous Sulfate [Ferosul]) 325 mg PO DAILY [facility] Ondansetron HCl (Ondansetron Hcl 4 Mg/2 Ml Vial) 4 mg IVPUSH Q8H PRN PRN Reason: Nausea and Vomiting Pharmacy Consult (Consult Rx Vancomycin Dosing) 1 each MISCELLANE DAILY PRN PRN Reason: Consult order Pharmacy Consult (Consult Rx Vancomycin Dosing) 1 each MISCELLANE DAILY PRN PRN Reason: Consult order Sodium Chloride (0.9 % Sodium Chloride Flush 3 Ml Syringe) 3 ml IVFLUSH QSHIFT [facility] Vitamin D (Cholecalciferol (Vitamin D3) 25 Mcg Tablet) 50 mcg PO DAILY [facility] Home Medications Medication Instructions Recorded Confirmed Last Taken Type buprenorphine 8 mg-naloxone 2 mg 1 film sublingual DAILY 11/13/20 08/18/22 08/18/22 History sublingual film albuterol sulfate 90 mcg/actuation 2 puff inhalation NEEDED PRN 02/11/21 08/18/22 Unknown History aerosol inhaler Dyspnea cholecalciferol (vitamin D3) 50 50 mcg PO DAILY 02/11/21 08/18/22 Unknown History mcg (2,000 unit) tablet fluticasone propionate 50 1 spray intranasal BID 02/11/21 08/18/22 Unknown History mcg/actuation nasal spray,suspension naloxone 4 mg/actuation nasal spray 4 mg intranasal DAILY PRN Opioid 02/11/21 08/18/22 Unknown History Overdose trazodone 50 mg tablet 50 mg PO BEDTIME 02/11/21 08/18/22 Unknown History venlafaxine 75 mg capsule,extended 75 mg PO DAILY 02/11/21 08/18/22 Unknown History release 24 hr warfarin 5 mg tablet 5 mg PO WEFR 05/25/21 06/10/22 Unknown History warfarin 7.5 mg tablet 7.5 mg PO SUMOTUTHSA 05/25/21 06/10/22 Unknown History ferrous sulfate 325 mg (65 mg 325 mg PO DAILY 01/27/22 08/18/22 Unknown History iron) tablet (FeroSul) warfarin 5 mg tablet 10 mg PO WE 08/18/22 08/18/22 Unknown History warfarin 7.5 mg tablet 1 tab PO SUMOTUTHFR08/18/22 08/18/22 08/16/22 History Physical Exam Vital Signs and Narrative: Vital Signs: Last Vital Signs Temp 99.9 F 08/18/22 07:22 Pulse 99 08/18/22 07:22 Resp 14 08/18/22 07:22 BP 135/65 08/18/22 07:22 Pulse Ox 94 08/18/22 07:22 O2 Del Method 08/18/22 07:22 BMI result Body Mass Index 27.5 Const: Other: Constitutional - Awake and Alert, ill appearing HEENT - PERRLA, EOMI, dry mucous membranes Cardiovascular - S1S2, RRR, No edema Respiratory - Normal lung expansion, Normal respiratory effort, No respiratory distress, CTA bilaterally Gastrointestinal - NT / ND; +BS; No rebound or guarding - No CVA tenderness Extremities - no calf tenderness bilaterally, no swelling Musculoskeletal - Normal inspection, normal ROM Skin - Warm/Dry Neurological - Alert & oriented x3, No focal deficit Psychological - Appropriate affect Results Labs CBC and Chem 7: 08/17/22 16:48 08/18/22 01:25 Labs: Laboratory Results - last 24 hr 08/17/22 08/17/22 08/17/22 16:48 16:48 16:48 MCV 80.3 MCH 26.2 L MCHC 32.7 RDW 14.0 Plt Count 163 D MPV 11.5 Absolute Nucleated RBC 0.000 Nucleated RBC % (auto) 0.0 ESR PT INR Anion Gap 18 Estim Creat Clear Calc 88.2 Estimated GFR 58 Random Glucose 142 H D Lactic Acid Calcium 9.2 Total Bilirubin 1.1 H Direct Bilirubin 0.6 H AST 28 ALT 22 Alkaline Phosphatase 94 Total Creatine Kinase 202 H C-Reactive Protein 31.21 H Total Protein 7.9 Albumin 4.3 Lipase 5 L Procalcitonin Urine Color Urine Appearance Urine pH Ur Specific Jerome Urine Protein Urine Glucose (UA) Urine Ketones Urine Blood Urine Nitrite Ur Leukocyte Esterase Urine RBC Urine WBC Ur Squamous Epith Cells Urine Bacteria Hyaline Casts Urine Opiates Screen Urine Fentanyl Screen Ur Barbiturates Screen Ur Phencyclidine Scrn Ur Amphetamines Screen U Benzodiazepines Scrn Urine Cocaine Screen U Marijuana (THC) Screen COVID-19 ([facility]) Negative COVID-19 Clin Com See Note Influenza Type A (PCR) Influenza Type B (PCR) RSV RNA Qual (PCR) SARS-CoV-2 RNA (RT-PCR) 08/17/22 08/17/22 08/18/22 16:48 22:41 01:22 MCV MCH MCHC RDW Plt Count MPV Absolute Nucleated RBC Nucleated RBC % (auto) ESR 7 PT 70.4 H INR 5.7 H* Anion Gap Estim Creat Clear Calc Estimated GFR Random Glucose Lactic Acid Calcium Total Bilirubin Direct Bilirubin AST ALT Alkaline Phosphatase Total Creatine Kinase C-Reactive Protein Total Protein Albumin Lipase Procalcitonin Urine Color Dark Yellow Urine Appearance Cloudy Urine pH 5.0 Ur Specific Jerome 1.025 Urine Protein 30 (1+) H Urine Glucose (UA) Negative Urine Ketones Trace Urine Blood Large (3+) H Urine Nitrite Negative Ur Leukocyte Esterase Negative Urine RBC 6-10 H Urine WBC 0-5 Ur Squamous Epith Cells 3-5 Urine Bacteria None Seen Hyaline Casts 0-2 Urine Opiates Screen Urine Fentanyl Screen Ur Barbiturates Screen Ur Phencyclidine Scrn Ur Amphetamines Screen U Benzodiazepines Scrn Urine Cocaine Screen U Marijuana (THC) Screen COVID-19 ([facility]) COVID-19 Clin Com Influenza Type A (PCR) Influenza Type B (PCR) RSV RNA Qual (PCR) SARS-CoV-2 RNA (RT-PCR) 08/18/22 08/18/22 08/18/22 01:23 01:23 01:25 MCV MCH MCHC RDW Plt Count MPV Absolute Nucleated RBC Nucleated RBC % (auto) ESR PT INR Anion Gap 16 Estim Creat Clear Calc 102.4 Estimated GFR > 60 Random Glucose 146 H Lactic Acid Calcium 8.5 D Total Bilirubin 1.3 H Direct Bilirubin AST 39 H ALT 27 Alkaline Phosphatase 87 Total Creatine Kinase C-Reactive Protein Total Protein 7.3 Albumin 3.9 Lipase Procalcitonin Urine Color Urine Appearance Urine pH Ur Specific Jerome Urine Protein Urine Glucose (UA) Urine Ketones Urine Blood Urine Nitrite Ur Leukocyte Esterase Urine RBC Urine WBC Ur Squamous Epith Cells Urine Bacteria Hyaline Casts Urine Opiates Screen Not Detected Urine Fentanyl Screen Not Detected Ur Barbiturates Screen Not Detected Ur Phencyclidine Scrn POSITIVE H Ur Amphetamines Screen Not Detected U Benzodiazepines Scrn Not Detected Urine Cocaine Screen Not Detected U Marijuana (THC) Screen Not Detected COVID-19 ([facility]) COVID-19 Clin Com Influenza Type A (PCR) NEGATIVE Influenza Type B (PCR) NEGATIVE RSV RNA Qual (PCR) NEGATIVE SARS-CoV-2 RNA (RT-PCR) NEGATIVE 08/18/22 08/18/22 07:00 07:00 MCV MCH MCHC RDW Plt Count MPV Absolute Nucleated RBC Nucleated RBC % (auto) ESR PT INR Anion Gap Estim Creat Clear Calc Estimated GFR Random Glucose Lactic Acid 1.2 Calcium Total Bilirubin Direct Bilirubin AST ALT Alkaline Phosphatase Total Creatine Kinase C-Reactive Protein Total Protein Albumin Lipase Procalcitonin 18.33 Urine Color Urine Appearance Urine pH Ur Specific Jerome Urine Protein Urine Glucose (UA) Urine Ketones Urine Blood Urine Nitrite Ur Leukocyte Esterase Urine RBC Urine WBC Ur Squamous Epith Cells Urine Bacteria Hyaline Casts Urine Opiates Screen Urine Fentanyl Screen Ur Barbiturates Screen Ur Phencyclidine Scrn Ur Amphetamines Screen U Benzodiazepines Scrn Urine Cocaine Screen U Marijuana (THC) Screen COVID-19 ([facility]) COVID-19 Clin Com Influenza Type A (PCR) Influenza Type B (PCR) RSV RNA Qual (PCR) SARS-CoV-2 RNA (RT-PCR) Imaging Radiologist's Impressions: Impressions Chest X-Ray 08/17/22 21:00 IMPRESSION: No acute finding. Head CT 08/18/22 00:19 IMPRESSION: No acute intracranial pathology. Assessment and Plan (1) Nausea & vomiting: Status: Acute (2) SIRS (systemic inflammatory response syndrome): Status: Acute Plan 37 yo M with a PMH of MVR replacement on coumadin, chronic opiate dependence on suboxone, intermittent asthma who presents to the ED with a 2 day history of gastrointestinal symptoms (nausea/vomiting without diarrhea or abdominal pain). He likely has viral gastroenteritis, but due to his underlying MVR he will be empirically treated with IV antibiotics. 1. Intractable n/v -- likely due to viral gastroenteritis 1a. SIRS supportive care with IVF, IV antiemetics abdominal exam is benign, hold of on imaging start diet and advance as tolerated due to his history of #3 + elevated CRP/Procalcitonin and now fever of 101.1 -- will empirically give IV vancomayin/cefepime; can d/c once blood cx negative; the patient does not have severe sepsis at this time; trend procalcitonin influenza/rsv/covid negative -- will check respiratory pathogen panel 2. Dehydration due to #1 IVF as above 3. Mitral valve Replacement on coumadin -- INR is supratherapeutic, hold coumadin today 4. Chronic opiate dependence continue suboxone 5. PCP use UDS postive; pt endorses last use 5 days ago Denies intravenous use of any substances 6. Hyperbilirubinemia could be related to #1 trend abdominal exam is benign, will hold off on imaging at this time Full Code DVT pptx, coumadin Due to the patients underlying MVR, fever (Temp of 101.1 this AM in the ED), significant luekocytosis, he will require treatment with IV antibiotics while bacteremia is ruled out. I anticipate dustin the will need a medically necessary inpatient hospitalization which is likely to span at least 2 midnights. This cannot be completed in a less acute setting. Quality Stroke Does the patient have a stroke diagnosis?: No VTE Prior VTE?: No VTE Risk Level:: Medical - moderate - high VTE Device Contraindication: Treatment Not Tolerated VTE Drug Contraindication: N/A - Med Ordered
--- NOTE | 2022-08-18 11:13 | PHA.PROG ---
Admission Date/Time: August 18, 2022 10:14 Indication: luekocytosis unknown source of infection Weight in k.79 kg Adjusted body weight in K.6 kg [place] body weight in K.5 kg Obesity Dosing Indication % IBW: 118% Serum Creatinine - Last 168 Hours 08/17/22 08/18/22 16:48 01:25 Creatinine 1.37 1.18 Estimated CrCl and GFR - Last 168 Hours 08/17/22 08/18/22 16:48 01:25 Estim Creat Clear Calc 88.2 102.4 Estimated GFR 58 > 60 Vancomycin Loading Dose: 2000 mg Current Vancomycin Dosing Regimen: 1000 mg Q12H Date and Time for next Vancomycin Level to be drawn: 08/19 @ 1800 Pharmacist Comments on Vancomycin Plan: Patient receive load dose vancomycin in the ER 08/18 @ 0814 [place] dose scheduled to start 08/18 @ 1999. Expected AUC 437 with a trough of 13.9. Trough to be drawn prior to 4th dose Pharmacy will monitor renal function daily. Libby Lopez PharmD Vancomycin dosing will take advantage of [employer] as a clinical decision support tool that uses Bayesian modeling to calculate individual patient's pharmacokinetic parameters and forecast the patient's drug concentration time course with the target goal AUC 24 range of 400 - 600 mg/L/hr.
[2022-08-18 11:22] LABS: Adenovirus PCR Not Detected (Not Detect.); Bordetella parapertussis PCR Not Detected (Not Detect.); Bordetella pertussis PCR Not Detected (Not Detect.); Chlamydia pneumoniae PCR Not Detected (Not Detect.); Coronavirus 229E PCR Not Detected (Not Detect.); Coronavirus HKU1 PCR Not Detected (Not Detect.); Coronavirus NL63 PCR Not Detected (Not Detect.); Coronavirus OC43 PCR Not Detected (Not Detect.); Human metapneumovirus PCR Not Detected (Not Detect.); Influenza A PCR Not Detected (Not Detect.); Influenza B PCR Not Detected (Not Detect.); Mycoplasma pneumoniae PCR Not Detected (Not Detect.); Parainfluenza 1 PCR Not Detected (Not Detect.); Parainfluenza 2 PCR Not Detected (Not Detect.); Parainfluenza 3 PCR Not Detected (Not Detect.); Parainfluenza 4 PCR Not Detected (Not Detect.); RSV PCR Not Detected (Not Detect.); Rhino/Enterovirus PCR Not Detected (Not Detect.); SARS-CoV-2 PCR Not Detected (Not Detect.)
[2022-08-18] MEDS: Lactated Ringers 1,000 ML 100 ML IVCONT ×2 (11:25→23:47)
--- NOTE | 2022-08-18 11:28 | PC.NURSE ---
lr started per order, is compatable with juan manuel
--- NOTE | 2022-08-18 14:44 | PC.NURSE ---
Pt V/S are stable, Pt IVF and antibiotics are running by provider order. Pt is resting now. will continue to monitor.
--- NOTE | 2022-08-18 15:47 | PC.NURSE ---
RN gave report to nurse Castillo.
[2022-08-18] MEDS: 0.9 % Sodium Chloride Flush 3 ML SYRINGE IVFLUSH ×2 (17:09→20:06)
[2022-08-18] MEDS: cefEPime HCl 1 GM in 0.9 % Sodium Chloride 50 ML IV (17:09)
[2022-08-18] MEDS: vancomycin HCL 1,000 MG in 0.9 % Sodium Chloride 250 ML 270 MG IV (20:05)
[2022-08-18] MEDS: Buprenorphine/Naloxone 4/1 mg FILM 1 FILM SUBLINGUAL (20:06)
[2022-08-19] MEDS: cefEPime HCl 1 GM in 0.9 % Sodium Chloride 50 ML IV (00:59)
[2022-08-19 04:00] VITALS: BP 109/55; PULSE 90; RESP 20; TEMP 37.1; O2SAT 98
[2022-08-19 06:45] LABS: Hematocrit 38.9 % (42.0-52.0); Mean Corpuscular HGB Conc 33.4 g/dl (31.0-36.0); Mean Corpuscular Hemoglobin 26.5 pg (27.0-33.0); Mean Corpuscular Volume 79.4 fL (80.0-98.0); Red Cell Distribution Width 13.9 % (11.0-16.0); White Blood Count 12.4 X10*3/uL (4.8-10.8)
[2022-08-19 06:58] LABS: Anion Gap 14 (12-20); Blood Urea Nitrogen 22 mg/dL (9-16); Carbon Dioxide 25 mmol/L (22-29); Chloride 103 mmol/L (96-108); Potassium 3.4 mmol/L (3.3-5.1); Sodium 139 mmol/L (135-145)
[2022-08-19 06:59] LABS: Calcium 8.2 mg/dL (8.4-10.2); Creatinine Clr Calc Pharmacy 140.5; Creatinine Clr Calc Pharmacy 142.2; Estimated Glomerular Filt Rate > 60; Glucose Random 116 mg/dL (60-115)
--- NOTE | 2022-08-19 07:00 | CA_ITS ---
Transthoracic Echocardiogram Patient (Last, First, Middle): Ludin Mendes, Gender: Male Date of : 1985 Age: 37 Procedure Date: 08/19/2022 Procedure Type: Transthoracic Echocardiogram Location: [facility] [place] Height: 190.5 cm Weight: 99.79 kg BSA: 2.29 m2 Heart Rate: bpm BP: 122 / 65 mmHg Framing Specialist: SHARYN Referring MD: Niranjan Arce MD Symptoms: bacteremia, valve replacement Study Quality: Adequate Conclusions: - The left ventricular systolic function is normal. The calculated ejection fraction is 66% by biplane method. - A mechanical prosthetic mitral valve is present. Mean gradient across the prosthetic mitral valve elevated at 18mHg, HR 92/min. Could indicate prosthetic valve stenosis. No obvious vegetations. Findings Left Ventricle Normal left ventricular cavity size. There is normal left ventricular wall thickness. The left ventricular systolic function is normal. The calculated ejection fraction is 66% by biplane method. There is no evidence of regional wall motion abnormalities. Diastolic function is indeterminate on the basis of available data. Right Ventricle Normal right ventricular cavity size and systolic function. Atria Both atria are normal in size. Aortic Valve There is a normal trileaflet aortic valve. There is no aortic valve stenosis. There is no aortic valve regurgitation. Mitral Valve A mechanical prosthetic mitral valve is present. Mean gradient across the prosthetic mitral valve elevated at 18mHg, HR 92/min. Could indicate prosthetic valve stenosis. No significant regurgitation noted. Pulmonic Valve The pulmonic valve was not well visualized. Tricuspid Valve Normal tricuspid valve structure. There is trace tricuspid valve regurgitation. There is no evidence of pulmonary hypertension. Great Vessels The aortic annulus, sinuses of valsalva, and asc aorta are normal in size. Venous The inferior vena cava is normal in size and collapses greater than 50% with inspiration. Pericardium/Pleural There is no evidence of pericardial effusion. Prior Study Comparison Changes noted compared to prior study dated: 11/21/2013. Further increase in gradients across mitral valve. Recommendations, Care & Conclusions Consider a CATA if clinically appropriate. Measurements 2D Linear Measurements IVSd: 0.90 0.6-0.9/0.6-1.0 cm LVIDd: 5.43 3.9-5.3/4.2-5.9 cm LVIDd Index: 2.37 2.4-3.2/2.2-3.1 cm/m2 LVIDs: 3.71 2.0-3.6 cm LVPWd: 1.17 0.7-1.1 cm LA Diam: 3.70 2.7-3.8/3.0-4.0 cm LAIDs Index: 1.62 1.5-2.3 cm/m2 LV Mass: 272.59 67-162/88-224 g LV Mass Index: 119.04 43-95/49-115 g/m2 LVOT Diam: 2.40 3.0+(-)1.3 cm 2D Systolic Function EF 4C: 64.10 >55% EF 2C: 65.40 >55% EF BiP: 65.50 >55% Mitral Valve MV VTI: 0.68 MV Pk Wilfredo: 2.58 MV Mn Wilfredo: 2.01 MV Pk Grad: 27.00 MV Mn Grad: 17.00 MV Pk E: 1.96 MV PK A: 2.29 MV Decel Time: 504.00 E/A: 0.90 E'Lateral: 10.80 E'Medial: 5.00 E/E' Med: 39.20 E/E' Lat: 18.10 PHT: 148.00 MVA PHT: 1.49 MVA Continuity: 1.36 Decel [place]: 3.89 Aortic Valve AoV Pk Wilfredo: 1.26 AoV Mn Wilfredo: 0.83 AoV VTI: 0.21 AoV Pk Grad: 6.00 Aov Mn Grad: 3.00 KAREN Cont.VTI: 4.52 LVOT LVOT Pk Wilfredo: 1.22 LVOT Mn Wilfredo: 0.84 LVOT VTI: 0.21 LVOT Pk Grad: 6.00 LVOT Mn Grad: 3.00 LVOT Diam: 2.40 LVOT Area: 4.52 Diastolic Function MV Pk E: 1.96 MV Pk A: 2.29 E/A: 0.90 E'Medial: 5.00 E/E' Med: 39.20 E' Laterial: 10.80 E/E' Lat: 18.10 Right Ventricle TAPSE (mm): 19.90 TVS' Wilfredo: 12.20 Tricuspid Valve TR Pk Wilfredo: 1.75 TR Pk Grad: 12.00 RA Press: 3.00 RVSP: 15.00 Great Vessels Aorta Sinus of Valsalva: 3.81 2.0-3.[address] [place]: 2.87 1.7-3.4 cm Ao Asc: 3.20 2.1-3.4 cm Updated in Other Vendor System with Status of Final Goran Reyes MD electronically signed on 08/19/2022 3:39:48 PM with status of Final
[2022-08-19 07:05] VITALS: BP 122/65; PULSE 93; RESP 20; TEMP 37.1; O2SAT 93
[2022-08-19 07:18] LABS: Platelet Count 59 X10*3/uL (160-400)
[2022-08-19] MEDS: ondansetron HCL 4 MG/2 ML VIAL IVPUSH ×2 (08:39→16:01)
[2022-08-19] MEDS: vancomycin HCL 1,250 MG in 0.9 % Sodium Chloride 250 ML 166.67 MG IV ×2 (08:41→20:21)
[2022-08-19] MEDS: Ferrous Sulfate 324 MG TABLET.DR PO (08:46)
[2022-08-19] MEDS: Cholecalciferol (Vitamin D3) 25 MCG TABLET 50 MCG PO (08:46)
[2022-08-19] MEDS: Acetaminophen 325 MG TABLET 650 MG PO ×3 (08:46→21:44)
[2022-08-19 09:28] LABS: Procalcitonin 13.11 ng/mL
--- NOTE | 2022-08-19 09:47 | P.PNIM_ITS ---
Subjective Subjective Date of Service: 08/19/22 Interval History: cc: generalized weakness interval history:weakness Cardiovascular Cardiovascular: Reports no additional cardiovascular complaints Respiratory Respiratory: Reports no additional respiratory complaints Physical Exam Vital Signs: Vital Signs: Last Vital Signs Temp 98.8 F 08/19/22 07:05 Pulse 93 08/19/22 07:05 Resp 20 08/19/22 07:05 BP 122/65 08/19/22 07:05 Pulse Ox 93 08/19/22 07:05 O2 Del Method 08/19/22 07:05 BMI result Body Mass Index 27.5 General: AO X 3, no acute distress Resp: CTA bilateral, no accessory muscles used CVS: S1,S2,RRR GI: soft, non tender, non distended Neuro: motor grossly intact, alert Psych: appropriate affect, appropriate insight Objective Data Active Medications Acetaminophen (Acetaminophen 325 Mg Tablet) 650 mg PO Q6H PRN PRN Reason: Pain, Mild (Pain Scale 1-3) Last Admin: 08/19/22 08:46 Dose: 650 mg Documented By: MEGAN Buprenorphine/Naloxone (Buprenorphine/Naloxone 4/1 Mg Film) 1 film SUBLINGUAL BID [facility] Last Admin: 08/18/22 20:06 Dose: 1 film Documented By: SHEYLA Ferrous Sulfate (Ferrous Sulfate 324 Mg Tablet.Dr) 324 mg PO DAILY [facility] Last Admin: 08/19/22 08:46 Dose: 324 mg Documented By: MEGAN Cefepime HCl 1 gm/ Sodium (Chloride) 50 mls @ 100 mls/hr IV Q8H [facility] Last Infusion: 08/19/22 01:51 Dose: 0 mls/hr Documented By: SHEYLA Vancomycin HCl 1,250 mg/ (Sodium Chloride) 250 mls @ 166.667 mls/hr IV Q12H [facility] Last Admin: 08/19/22 08:41 Dose: 166.67 mls/hr Documented By: MEGAN Ondansetron HCl (Ondansetron Hcl 4 Mg/2 Ml Vial) 4 mg IVPUSH Q8H PRN PRN Reason: Nausea and Vomiting Last Admin: 08/19/22 08:39 Dose: 4 mg Documented By: MEGAN Pharmacy Consult (Consult Rx Vancomycin Dosing) 1 each MISCELLANE DAILY PRN PRN Reason: Consult order Pharmacy Consult (Consult Rx Vancomycin Dosing) 1 each MISCELLANE DAILY PRN PRN Reason: Consult order Sodium Chloride (0.9 % Sodium Chloride Flush 3 Ml Syringe) 3 ml IVFLUSH QSHIFT [facility] Last Admin: 08/19/22 08:48 Dose: Not Given Documented By: MEGAN Non-Admin Reason: IV Running Trazodone HCl (Trazodone Hcl 50 Mg Tablet) 50 mg PO BEDTIME [facility] Last Admin: 08/18/22 20:06 Dose: Not Given Documented By: SHEYLA Non-Admin Reason: Patient Refused Venlafaxine HCl (Venlafaxine Hcl Er 75 Mg Cap.Er.24h) 75 mg PO DAILY [facility] Last Admin: 08/19/22 08:47 Dose: Not Given Documented By: MEGAN Non-Admin Reason: Patient Refused Vitamin D (Cholecalciferol (Vitamin D3) 25 Mcg Tablet) 50 mcg PO DAILY [facility] Last Admin: 08/19/22 08:46 Dose: 50 mcg Documented By: MEGAN Labs CBC & Chem 7: 08/19/22 06:11 08/19/22 06:11 Labs: Laboratory Results - last 24 hr 08/18/22 08/19/22 08/19/22 09:35 06:11 06:11 MCV 79.4 L MCH 26.5 L MCHC 33.4 RDW 13.9 Plt Count 59 L D MPV Not Reportable Absolute Nucleated RBC 0.000 Nucleated RBC % (auto) 0.0 Anion Gap 14 Estim Creat Clear Calc 140.5 Estimated GFR > 60 Random Glucose 116 H Calcium 8.2 L Procalcitonin Respiratory Panel [facility] See Note Adenovirus (Rapid PCR) Not Detected B.pert (TEM-PCR) Not Detected B.parapertussis DNA PCR Not Detected C. pneumoniae DNA (PCR) Not Detected Coronavirus OC43 (PCR) Not Detected Coronavirus HKU1 (PCR) Not Detected Coronavirus 229E (PCR) Not Detected Coronavirus NL63 (PCR) Not Detected Human Metapneumovir PCR Not Detected Influenza A (RT-PCR) Not Detected Influenza B (RT-PCR) Not Detected M. pneumoniae (PCR) Not Detected Parainfluenza 1 (PCR) Not Detected Parainfluenza 2 (PCR) Not Detected Parainfluenza 3 (PCR) Not Detected Parainfluenza 4 (PCR) Not Detected RSV (PCR) Not Detected Entero/Rhino (PCR) Not Detected SARS-CoV-2 RNA (RT-PCR) Not Detected 08/19/22 08/19/22 06:11 06:11 MCV MCH MCHC RDW Plt Count MPV Absolute Nucleated RBC Nucleated RBC % (auto) Anion Gap Estim Creat Clear Calc 142.2 Estimated GFR > 60 Random Glucose Calcium Procalcitonin 13.11 Respiratory Panel [facility] Adenovirus (Rapid PCR) B.pert (TEM-PCR) B.parapertussis DNA PCR C. pneumoniae DNA (PCR) Coronavirus OC43 (PCR) Coronavirus HKU1 (PCR) Coronavirus 229E (PCR) Coronavirus NL63 (PCR) Human Metapneumovir PCR Influenza A (RT-PCR) Influenza B (RT-PCR) M. 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 presented with abd pain, feeling unwell, now with positive blood cultures sepsis due to GPC bacteremia in IVDA, concern for endocarditis in patient with mechanical MVR thrombocytopenia unlikely due to sepsis, follow cbc will dc cefepime, continue vancomycin ID eval, echo follow up repeat cultures currently inr supratherapeutic, hold coumadin for now, dose for goal of 2.5-3.5 opiate dependence suboxone mild hyperbilli and transaminitis will recheck hepatitis panel full code reason for continued hospitalization:positive cultures, awaiting clearance Quality Stroke Does the patient have a stroke diagnosis?: No VTE Prior VTE?: No VTE Risk Level:: Medical - moderate - high VTE Device Contraindication: Treatment Not Tolerated VTE Drug Contraindication: N/A - Med Ordered
[2022-08-19 11:10] VITALS: BP 109/60; PULSE 97; RESP 20; TEMP 37.2; O2SAT 94
[2022-08-19] MEDS: Buprenorphine/Naloxone 4/1 mg FILM 1 FILM SUBLINGUAL ×2 (14:26→20:21)
--- NOTE | 2022-08-19 15:06 | MHC.CM.PN ---
IMM DELIVERED CM MET WITH PT, LIVES WITH PARENTS. HAS NO SERVICES OR DME AT HOME, NO HCP AND DECLINES TO FILL ONE OUT AT THIS TIME. COVID VAX X2 WITH [facility]. PCP IS AT [facility] BUT LEFT PRACTICE, HAS BEEN REASSIGNED TO [facility] [place] [facility] BUT WILL NEED NEW PT APPOINTMENT TO ESTABLISH. FAMILY WILL TRANSPORT HOME ON DC. PT AWARE MAY NEED TO GO TO A SNF IF DC ON LT IV ABT. HE IS AGREEABLE. REFERRALS SENT TO SNF'S THAT MANAGE SUBOXONE RX. CM WILL CONTINUE TO FOLLOW.
[2022-08-19 15:36] VITALS: BP 124/67; PULSE 92; RESP 18; TEMP 37.6
[2022-08-19] MEDS: 0.9 % Sodium Chloride Flush 3 ML SYRINGE IVFLUSH (15:39)
[2022-08-19 19:00] LABS: Vancomycin Trough 10.3 mcg/mL (10.0-20.0)
[2022-08-19 19:04] VITALS: BP 121/65; PULSE 89; RESP 19; TEMP 36.8; O2SAT 93
--- NOTE | 2022-08-19 19:34 | HE.PHANOTE ---
vancomycin addendum: trough came back at 10.3, pt had gotten 2 gram, 1 gram, and 1250. since dose is now 1250 mg q12 hours, will check another level to see if adjustment needed
[2022-08-19 23:50] VITALS: BP 136/59; PULSE 87; RESP 18; TEMP 36.9; O2SAT 92
[2022-08-20] VITALS (7 sets, daily range): BP systolic 115–131; BP diastolic 59–80; PULSE 83–107; RESP 16–19; TEMP 36.7–37.9; O2SAT 92–94
[2022-08-20] MEDS: 0.9 % Sodium Chloride Flush 3 ML SYRINGE IVFLUSH ×4 (01:39→20:24)
[2022-08-20 07:36] LABS: Hematocrit 40.5 % (42.0-52.0); Hemoglobin 13.3 g/dl (14.0-18.0); Mean Corpuscular HGB Conc 32.8 g/dl (31.0-36.0); Mean Corpuscular Hemoglobin 25.7 pg (27.0-33.0); Mean Corpuscular Volume 78.2 fL (80.0-98.0); PLT CLUMP 1; Red Blood Count 5.18 X10*6/uL (4.60-5.80); Red Cell Distribution Width 13.9 % (11.0-16.0)
[2022-08-20 07:41] LABS: PLT ABN DIST 1
[2022-08-20 07:45] LABS: Anion Gap 15 (12-20); Blood Urea Nitrogen 17 mg/dL (9-16); Calcium 8.1 mg/dL (8.4-10.2); Carbon Dioxide 28 mmol/L (22-29); Chloride 98 mmol/L (96-108); Creatinine Clr Calc Pharmacy 131.3; Estimated Glomerular Filt Rate > 60; Glucose Fasting 117 mg/dL (60-99); Sodium 138 mmol/L (135-145)
--- NOTE | 2022-08-20 07:49 | HE.PHANOTE ---
RE LILLY TROUGH DUE @ 1800. MAY NEED TO INCREASE DOSE PENDING TROUGH AND SCR TODAY PADMINI
[2022-08-20] MEDS: Buprenorphine/Naloxone 4/1 mg FILM 1 FILM SUBLINGUAL ×2 (07:53→22:55)
[2022-08-20] MEDS: Ferrous Sulfate 324 MG TABLET.DR PO (07:53)
[2022-08-20] MEDS: vancomycin HCL 1,250 MG in 0.9 % Sodium Chloride 250 ML 166.67 MG IV (07:53)
[2022-08-20] MEDS: Venlafaxine HCl ER 75 MG CAP.ER.24H PO (07:54)
[2022-08-20] MEDS: Acetaminophen 325 MG TABLET 650 MG PO ×2 (07:54→20:23)
[2022-08-20] MEDS: Cholecalciferol (Vitamin D3) 25 MCG TABLET 50 MCG PO (07:54)
[2022-08-20] MEDS: ondansetron HCL 4 MG/2 ML VIAL IVPUSH ×2 (07:56→20:23)
[2022-08-20 08:03] LABS: INTERNATIONAL NORM RATIO 3.4 (0.9-1.1); Prothrombin Time 41.6 SEC (10.0-13.1)
[2022-08-20 08:04] LABS: Platelet Count 60 X10*3/uL (160-400); White Blood Count 10.9 X10*3/uL (4.8-10.8)
[2022-08-20 08:32] LABS: HBS Num1 64.77 mIU/mL (0-7.99); HBc Num1 0.06 S/CO (0.00-0.79); HBsAGNum1 0.19 S/CO (0.00-0.99); Hepatitis B Core Antibody Nonreactive (Nonreactive); Hepatitis B Surface Antigen Negative (Negative); ~HepC Num1 0.12 S/CO (0.00-0.79); ~Hepatitis B Surface Antibody REACTIVE (Nonreactive); ~Hepatitis C Antibody Nonreactive (Nonreactive)
--- NOTE | 2022-08-20 09:03 | HO.PM.IMPN ---
Subjective Subjective Date of Service: 08/20/22 Interval History: cc: generalized weakness interval history:weakness Cardiovascular Cardiovascular: Reports no additional cardiovascular complaints Respiratory Respiratory: Reports no additional respiratory complaints Physical Exam Vital Signs: Vital Signs: Last Vital Signs Temp 100.2 F 08/20/22 07:34 Pulse 107 H 08/20/22 07:34 Resp 16 08/20/22 07:34 BP 115/59 L 08/20/22 07:34 Pulse Ox 93 08/20/22 07:34 O2 Del Method 08/20/22 07:34 BMI result Body Mass Index 27.5 General: AO X 3, no acute distress Resp: CTA bilateral, no accessory muscles used CVS: S1,S2,RRR GI: soft, non tender, non distended Neuro: motor grossly intact, alert Psych: appropriate affect, appropriate insight Objective Data Active Medications Acetaminophen (Acetaminophen 325 Mg Tablet) 650 mg PO Q6H PRN PRN Reason: Pain, Mild (Pain Scale 1-3) Last Admin: 08/20/22 07:54 Dose: 650 mg Documented By: JUNAID Buprenorphine/Naloxone (Buprenorphine/Naloxone 4/1 Mg Film) 1 film SUBLINGUAL BID [facility] Last Admin: 08/20/22 07:53 Dose: 1 film Documented By: JUNAID Capsaicin (Capsaicin 0.025% Cream 60 Gm Tube) 1 appl TOPICAL TID PRN; Protocol PRN Reason: nasuea Ferrous Sulfate (Ferrous Sulfate 324 Mg Tablet.Dr) 324 mg PO DAILY [facility] Last Admin: 08/20/22 07:53 Dose: 324 mg Documented By: JUNAID Cefazolin Sodium/Dextrose (Ancef) 2 gm in 50 mls @ 100 mls/hr IV Q8H [facility] Stop: 09/10/22 01:44 Ondansetron HCl (Ondansetron Hcl 4 Mg/2 Ml Vial) 4 mg IVPUSH Q8H PRN PRN Reason: Nausea and Vomiting Last Admin: 08/20/22 07:56 Dose: 4 mg Documented By: JUNAID Pharmacy Consult (Consult Rx Vancomycin Dosing) 1 each MISCELLANE DAILY PRN PRN Reason: Consult order Pharmacy Consult (Consult Rx Vancomycin Dosing) 1 each MISCELLANE DAILY PRN PRN Reason: Consult order Sodium Chloride (0.9 % Sodium Chloride Flush 3 Ml Syringe) 3 ml IVFLUSH QSHIFT [facility] Last Admin: 08/20/22 07:53 Dose: 3 ml Documented By: JUNAID Trazodone HCl (Trazodone Hcl 50 Mg Tablet) 50 mg PO BEDTIME [facility] Last Admin: 08/19/22 20:27 Dose: Not Given Documented By: JAMES Non-Admin Reason: Patient Refused Venlafaxine HCl (Venlafaxine Hcl Er 75 Mg Cap.Er.24h) 75 mg PO DAILY [facility] Last Admin: 08/20/22 07:54 Dose: 75 mg Documented By: JUNAID Vitamin D (Cholecalciferol (Vitamin D3) 25 Mcg Tablet) 50 mcg PO DAILY [facility] Last Admin: 08/20/22 07:54 Dose: 50 mcg Documented By: JUNAID Labs CBC & Chem 7: 08/20/22 07:13 08/20/22 07:13 Labs: Laboratory Results - last 24 hr 08/19/22 08/19/22 08/20/22 06:11 18:19 07:13 MCV MCH MCHC RDW Plt Count MPV Absolute Nucleated RBC Nucleated RBC % (auto) PT INR Anion Gap 15 Estim Creat Clear Calc 131.3 Estimated GFR > 60 Fasting Glucose 117 H Calcium 8.1 L Procalcitonin 13.11 Vancomycin Trough 10.3 08/20/22 08/20/22 07:13 07:13 MCV 78.2 L MCH 25.7 L MCHC 32.8 RDW 13.9 Plt Count 60 L MPV Not Reportable Absolute Nucleated RBC 0.000 Nucleated RBC % (auto) 0.0 PT 41.6 H INR 3.4 H D Anion Gap Estim Creat Clear Calc Estimated GFR Fasting Glucose Calcium Procalcitonin Vancomycin Trough Microbiology Microbiology Results: Microbiology 08/18/22 07:37 Blood Culture - Final Blood - Venous Staphylococcus aureus 08/18/22 07:37 Blood Culture - Final Blood - Venous Staphylococcus aureus Assessment and Plan (1) Myalgia: Status: Acute Plan 37M with PMH 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 presented with abd pain, feeling unwell, now with positive blood cultures sepsis due to MSSA bacteremia in IVDA, in patient with mechanical MVR thrombocytopenia unlikely due to sepsis, follow cbc abx changed to ancef follow up repeat blood cultures echo with no obvious vegetation ID eval no longer supratherapeutic restarted coumadin at 5mg daily goal inr 2.5-3.5 opiate dependence suboxone mild hyperbilli and transaminitis follow up hepatitis panel full code reason for continued hospitalization:positive cultures, awaiting clearance Quality Stroke Does the patient have a stroke diagnosis?: No VTE Prior VTE?: No VTE Risk Level:: Medical - moderate - high VTE Device Contraindication: Treatment Not Tolerated VTE Drug Contraindication: N/A - Med Ordered
[2022-08-20] MEDS: Potassium Chloride ER 20 MEQ TAB.ER.PRT 40 MEQ PO (10:08)
[2022-08-20] MEDS: Omeprazole 40 MG CAPSULE.DR PO (11:16)
[2022-08-20] MEDS: ceFAZolin Sodium/Dextrose,Iso 2 GM/50 ML PIGGYBACK IV ×2 (11:17→22:55)
--- NOTE | 2022-08-20 12:44 | MHC.CM.PN ---
per rounds pt not ready for dc plan remains home
--- NOTE | 2022-08-20 16:02 | W.PM.IDCN ---
History of Present Illness Data of Consult Service Date: 08/20/22 Requesting physician: Niranjan Arce Primary Care Provider: Unknown Physician HPI Reason for consult: MSSA bacteremia He presents with two days weakness and chills. He had MVR twenty years ago. He has staph aureus bacteremia Review of Systems Review of Systems: Yes all other systems are reviewed and are negative PMFSH Past Medical History Medical History (Updated 08/20/22 @ 16:05 by Shefali Correa MD) Asthma Current use of anticoagulant therapy Endocarditis of prosthetic mitral valve Opioid use disorder Family History Family history: reviewed and not pertinent Surgical History Surgical History Heart valve replaced History of heart valve replacement with mechanical valve Presence of other heart-valve replacement Social History Social History Household Members: Family Housing: Apartment Do you presently have visiting nurse or other home services: No Alcohol intake: current Alcohol intake frequency: a few times a month Alcohol type: beer Patient Tobacco Use Status: Current everyday Tobacco user Tobacco use type: Cigarette Cigarettes Per Day: 2 Substance Use Type: Other service: No Current occupational status: unemployed 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 Meds Allergies Allergy/AdvReac Type Severity Reaction Status Date / Time hydrocodone [From VICODIN] Allergy Unknown GI UPSET Verified 06/10/22 14:46 Active Medications: Current Medications Acetaminophen (Acetaminophen 325 Mg Tablet) 650 mg PO Q6H PRN PRN Reason: Pain, Mild (Pain Scale 1-3) Last Admin: 08/20/22 07:54 Dose: 650 mg Albuterol Sulfate (Albuterol Sulfate 90 Mcg 8 Gm Inhaler) 2 puff INHALE Q4H PRN PRN Reason: Dyspnea Albuterol/Ipratropium (Albuterol/Iprat 2.5/0.5mg 3 Ml Ampul.Neb) 3 ml INHALE RQ4H PRN PRN Reason: sob Buprenorphine/Naloxone (Buprenorphine/Naloxone 4/1 Mg Film) 1 film SUBLINGUAL BID [facility] Last Admin: 08/20/22 07:53 Dose: 1 film Capsaicin (Capsaicin 0.025% Cream 60 Gm Tube) 1 appl TOPICAL TID PRN; Protocol PRN Reason: nasuea Ferrous Sulfate (Ferrous Sulfate 324 Mg Tablet.Dr) 324 mg PO DAILY [facility] Last Admin: 08/20/22 07:53 Dose: 324 mg Fluticasone Propionate (Fluticasone Propionate Nasal 16 Gm Lapaz) 1 spray NOSTRIL-B BID [facility] Cefazolin Sodium/Dextrose (Ancef) 2 gm in 50 mls @ 100 mls/hr IV Q8H [facility] Stop: 09/10/22 03:29 Last Infusion: 08/20/22 11:54 Dose: Infused Omeprazole (Omeprazole 40 Mg Capsule.) 40 mg PO DAILY@0630 [facility] Last Admin: 08/20/22 11:16 Dose: 40 mg Ondansetron HCl (Ondansetron Hcl 4 Mg/2 Ml Vial) 4 mg IVPUSH Q8H PRN PRN Reason: Nausea and Vomiting Last Admin: 08/20/22 07:56 Dose: 4 mg Pharmacy Consult (Consult Rx Vancomycin Dosing) 1 each MISCELLANE DAILY PRN PRN Reason: Consult order Pharmacy Consult (Consult Rx Vancomycin Dosing) 1 each MISCELLANE DAILY PRN PRN Reason: Consult order Sodium Chloride (0.9 % Sodium Chloride Flush 3 Ml Syringe) 3 ml IVFLUSH QSHIFT [facility] Last Admin: 08/20/22 15:42 Dose: 3 ml Trazodone HCl (Trazodone Hcl 50 Mg Tablet) 50 mg PO BEDTIME [facility] Last Admin: 08/19/22 20:27 Dose: Not Given Venlafaxine HCl (Venlafaxine Hcl Er 75 Mg Cap.Er.24h) 75 mg PO DAILY [facility] Last Admin: 08/20/22 07:54 Dose: 75 mg Vitamin D (Cholecalciferol (Vitamin D3) 25 Mcg Tablet) 50 mcg PO DAILY [facility] Last Admin: 08/20/22 07:54 Dose: 50 mcg Warfarin Sodium (Warfarin Sodium 5 Mg Tablet) 5 mg PO DAILY@1800 [facility] Home Medications Medication Instructions Recorded Confirmed Last Taken Type buprenorphine 8 mg-naloxone 2 mg 1 film sublingual DAILY 11/13/20 08/18/22 08/18/22 History sublingual film albuterol sulfate 90 mcg/actuation 2 puff inhalation NEEDED PRN 02/11/21 08/18/22 Unknown History aerosol inhaler Dyspnea cholecalciferol (vitamin D3) 50 50 mcg PO DAILY 02/11/21 08/18/22 Unknown History mcg (2,000 unit) tablet fluticasone propionate 50 1 spray intranasal BID 02/11/21 08/18/22 Unknown History mcg/actuation nasal spray,suspension naloxone 4 mg/actuation nasal spray 4 mg intranasal DAILY PRN Opioid 02/11/21 08/18/22 Unknown History Overdose trazodone 50 mg tablet 50 mg PO BEDTIME 02/11/21 08/18/22 Unknown History venlafaxine 75 mg capsule,extended 75 mg PO DAILY 02/11/21 08/18/22 Unknown History release 24 hr warfarin 5 mg tablet 5 mg PO WEFR 05/25/21 06/10/22 Unknown History warfarin 7.5 mg tablet 7.5 mg PO SUMOTUTHSA 05/25/21 06/10/22 Unknown History ferrous sulfate 325 mg (65 mg 325 mg PO DAILY 01/27/22 08/18/22 Unknown History iron) tablet (FeroSul) warfarin 5 mg tablet 10 mg PO WE 08/18/22 08/18/22 Unknown History warfarin 7.5 mg tablet 1 tab PO SUMOTUTHFR08/18/22 08/18/22 08/16/22 History Physical Exam Vital Signs: Vital Signs: Last Vital Signs Temp 98.5 F 08/20/22 14:58 Pulse 85 08/20/22 14:58 Resp 18 08/20/22 14:58 BP 125/67 08/20/22 14:58 Pulse Ox 94 08/20/22 14:58 O2 Del Method 08/20/22 14:58 BMI result Body Mass Index 27.5 Const: General: cooperative HEENT: Head: Yes normal to inspection Face and sinus: Yes normal facial exam Mouth: Normal oral and palatal mucosa present Teeth and gingiva: dentition normal Eyes: General: appearance normal, both eyes and all related structures Pupils: Equal, round and reactive pupils present Resp: Effort & Inspection: normal respiratory effort Cardio: Rate: regular rate Rhythm: regular rhythm GI: Palpation (GI): Soft to palpation and nontender : General: Yes no CVA tenderness Back/Spine/Pelvis: Back: no CVA tenderness Skin: Other: right thumb Janeway lesion Neuro: General: moves all extremities Cranial nerves: Yes Equal, round and reactive pupils present Extrem: General: Yes normal to inspection Psych: Appearance: grossly normal Results Labs CBC & Chem 7: 08/20/22 07:13 08/20/22 07:13 Labs: Short CBC 08/20/22 Range/Units 07:13 WBC 10.9 H (4.8-10.8) X10*3/uL Hgb 13.3 L (14.0-18.0) g/dl Hct 40.5 L (42.0-52.0) % Plt Count 60 L (160-400) X10*3/uL BMP 08/20/22 07:13 Sodium 138 Potassium 3.0 L Chloride 98 Carbon Dioxide 28 BUN 17 H Creatinine 0.92 Calcium 8.1 L Microbiology Microbiology Results: Microbiology 08/18/22 07:37 Blood - Venous Blood Culture - Final Staphylococcus aureus 08/18/22 07:37 Blood - Venous Blood Culture - Final Staphylococcus aureus Assessment and Plan (1) Endocarditis of prosthetic mitral valve: Status: Acute He has stigmata of IE with probable right hand Janeway lesion. He has MSSA He had MVR in youth. Plan Continue Kefzol Add Rifampin Discuss Cardiac Surgery
[2022-08-20] MEDS: Warfarin Sodium 5 MG TABLET PO (17:26)
[2022-08-20] MEDS: rifAMPin 300 MG CAPSULE PO (17:26)
[2022-08-20] MEDS: Fluticasone Propionate Nasal 16 GM SPRAY 1 SPRAY NOSTRIL-B (20:24)
[2022-08-20] MEDS: Albuterol Sulfate 90 MCG 8 GM INHALER 2 PUFF INHALE (20:33)
--- NOTE | 2022-08-21 | ECG_ITS ---
Test Reason : endocarditis Blood Pressure : / mmHG Vent. Rate : 096 BPM Atrial Rate : 096 BPM P-R Int : 188 ms QRS Dur : 094 ms QT Int : 378 ms P-R-T Axes : 048 072 019 degrees QTc Int : 477 ms Normal sinus rhythm Possible Left atrial enlargement RSR' or QR pattern in V1 suggests right ventricular conduction delay Abnormal ECG No significant changes seen Referred By: Niranjan Arce Electronically Signed By:THERON GIBBS MD
[2022-08-21] MEDS: rifAMPin 300 MG CAPSULE PO ×2 (02:08→09:21)
[2022-08-21] MEDS: ceFAZolin Sodium/Dextrose,Iso 2 GM/50 ML PIGGYBACK IV ×2 (02:09→11:05)
[2022-08-21 03:16] VITALS: BP 126/67; PULSE 82; RESP 18; TEMP 36.4; O2SAT 92
[2022-08-21 06:31] LABS: Hematocrit 38.5 % (42.0-52.0); Mean Corpuscular HGB Conc 33.8 g/dl (31.0-36.0); Mean Corpuscular Hemoglobin 26.3 pg (27.0-33.0); Mean Corpuscular Volume 77.9 fL (80.0-98.0); Mean Platelet Volume 11.9 fL (9.4-12.4); Red Blood Count 4.94 X10*6/uL (4.60-5.80); White Blood Count 10.9 X10*3/uL (4.8-10.8)
[2022-08-21 06:33] LABS: PLT ABN DIST 1; Platelet Count 68 X10*3/uL (160-400)
[2022-08-21 06:37] LABS: INTERNATIONAL NORM RATIO 4.1 (0.9-1.1); Prothrombin Time 50.3 SEC (10.0-13.1)
[2022-08-21 07:00] LABS: Anion Gap 17 (12-20); Blood Urea Nitrogen 15 mg/dL (9-16); Calcium 8.1 mg/dL (8.4-10.2); Carbon Dioxide 28 mmol/L (22-29); Chloride 96 mmol/L (96-108); Creatinine Clr Calc Pharmacy 154.9; Estimated Glomerular Filt Rate > 60; Glucose Fasting 116 mg/dL (60-99); Potassium 3.3 mmol/L (3.3-5.1); Sodium 138 mmol/L (135-145)
[2022-08-21 07:51] VITALS: BP 136/71; PULSE 96; RESP 16; TEMP 36.4; O2SAT 95
[2022-08-21] MEDS: 0.9 % Sodium Chloride Flush 3 ML SYRINGE IVFLUSH (09:21)
[2022-08-21] MEDS: Ferrous Sulfate 324 MG TABLET.DR PO (09:21)
[2022-08-21] MEDS: Cholecalciferol (Vitamin D3) 25 MCG TABLET 50 MCG PO (09:21)
--- NOTE | 2022-08-21 10:15 | MHC.SHP ---
Pre-Procedural Eval Section A Date of Service: 08/21/22 The patient is an INPATIENT: Yes Section B Chief Complaint: Nausea/vomiting Allergies: Allergies Allergy/AdvReac Type Severity Reaction Status Date / Time hydrocodone [From VICODIN] Allergy Unknown GI UPSET Verified 06/10/22 14:46 Plan I have reviewed the history and physical and performed a pertinent physical examination on my patient. No changes have occurred unless specified.
--- NOTE | 2022-08-21 11:00 | CA_ITS ---
Transesophageal Echocardiogram Patient (Last, First, Middle): Ludin Mendes, Gender: Male Date of : 1985 Age: 37 Procedure Date: 08/21/2022 Procedure Type: Transesophageal Echocardiogram Location: [facility] [place] Height: 190.5 cm Weight: 99.79 kg BSA: 2.29 m2 Heart Rate: 93 bpm BP: 130 / 75 mmHg Rib Bender: SB Referring MD: Goran Reyes MD Symptoms: Endocarditis Conclusion: ??? A mechanical prosthetic mitral valve is present. Vegetation noted attached to the annulus; about 1.7 x 0.6cm. Long, linear, mobile. Additional smaller vegetation also noted, attached to the annulus. Mean gradient across the valve 12mmHg at 98/min. Minimal para-valvular regurgitation. Overall suggestive of prosthetic valve endocarditis. ??? There is mild thickening of the aortic valve. Could indicate early infection/vegetation. Findings Procedure Information The quality of the study was good. Consent was obtained prior to the procedure. The adult 3D probe was passed with no difficulty. Left Ventricle Normal left ventricular cavity size. The left ventricular systolic function is normal. The visually estimated ejection fraction is between 65-70%. There is no evidence of regional wall motion abnormalities. Right Ventricle Normal right ventricular cavity size and systolic function. Atria There is no evidence of a thrombus in the left atrial appendage. There is no evidence of interatrial shunt by color Doppler. Aortic Valve There is a normal trileaflet aortic valve. There is mild thickening of the aortic valve. There is no aortic valve stenosis. There is no aortic valve regurgitation. Mitral Valve A mechanical prosthetic mitral valve is present. Vegetation noted attached to the annulus of prosthetic mitral valve; about 1.7 x 0.6cm. Long, linear, mobile. Additional smaller vegetation also noted, attached to the annulus. Mean gradient across the valve 12mmHg at 98/min. Minimal para-valvular regurgitation. Overall suggestive of prosthetic valve endocarditis. 3D images also obtained. Pulmonic Valve The pulmonic valve was not well visualized. There is no pulmonic valve regurgitation. Tricuspid Valve Normal tricuspid valve structure. There is no tricuspid valve regurgitation. Great Vessels The aortic annulus, asc aorta, aortic arch, and desc aorta are normal in size. Pericardium/Pleural There is no evidence of pericardial effusion. Prior Study Comparison Changes noted compared to prior study dated: 08/19/2022. Mitral valve gradients slightly lower. See comments on vegetation. Measurements Mitral Valve MV VTI: 0.44 MV Pk Wilfredo: 2.38 MV Mn Wilfredo: 1.65 MV Pk Grad: 23.00 MV Mn Grad: 12.00 Great Vessels Aorta Ao Asc: 2.90 2.1-3.4 cm Updated by Goran Reyes on 01:02 PM with Status of Final Goran Reyes MD electronically signed on 08/21/2022 1:02:26 PM with status of Final
[2022-08-21] MEDS: Buprenorphine/Naloxone 4/1 mg FILM 1 FILM SUBLINGUAL (11:04)
--- NOTE | 2022-08-21 11:07 | PM.CNCAR ---
History of Present Illness History of Present Illness Date of Service: 08/21/22 Chief complaint: Nausea/vomiting Narrative: This is a cardiology consultation regarding question of endocarditis. Patient has a history of mitral valve replacement on anticoagulation with Coumadin. It seems this was done about 20 years ago. Actually etiology is not clear. He denies any history of drug use at any point. However, urine phencyclidine screen was positive. Question about IV drug use multiple times and he denies everything. There is also no recent dental work. He is on chronic Suboxone. He came with nausea, vomiting, intolerance total intake. Apparently sick contacts at home including children who had a viral illness. He had extensive workup including influenza, COVID, strep sore throat through his PCP and they were all negative. However, he looked ill and he was sent to the ER. He underwent echocardiogram. Otherwise, he has been seen by ID who felt that he had embolic lesions in his fingers and hence believe that he has endocarditis of his prosthetic valve. We have been asked to see for further evaluation. Patient states that he has never used IV drugs before. Otherwise, no specific cardiac symptoms like angina or shortness of breath or palpitations or syncopal episodes or anything cardiac related. Apart from the constitutional symptoms he otherwise feels okay. Review of Systems Review of Systems: Yes all other systems are reviewed and are negative Constitutional: Constitutional: Reports as per HPI, Reports fatigue, Reports fever(s), Reports lethargy, Reports malaise, Reports poor appetite and Reports weakness Eyes: Eyes: Reports as per HPI ENT: Reports as per HPI Cardiovascular: Cardiovascular: Reports as per HPI, Denies acrocyanosis, Denies cool extremities, Denies chest pain, Denies leg edema, Denies lightheadedness, Denies palpitations and Denies dyspnea Respiratory: Respiratory: Reports as per HPI, Reports no additional respiratory complaints and Denies dyspnea Gastrointestinal: Gastrointestinal: Reports as per HPI, Reports no additional gastrointestinal complaints, Reports nausea and Reports vomiting Genitourinary: Genitourinary: Reports no additional male genitourinary complaints and Reports as per HPI Musculoskeletal: Musculoskeletal: Reports no additional musculoskeletal complaints and Reports as per HPI Integumentary/Breasts: Skin/Breast: Reports system reviewed and no additional complaints, except as docu Neurologic: Reports system reviewed and no additional complaints, except as documented, Reports as per HPI and Reports weakness Psychiatric: Psychiatric: Reports no additional psychiatric complaints and Reports as per HPI Endocrine: Endocrine: Reports no additional endocrine complaints, Reports as per HPI, Reports fatigue and Denies palpitations Hematologic/Lymphatic: Hematologic/Lymphatic: Reports no additional hematologic/lymphatic complaints and Reports as per HPI Allergic/Immunologic: Allergic/Immunologic: Reports no additional allergic/immunologic complaints and Reports as per HPI PMFSH Past Medical History Medical History (Updated 08/20/22 @ 16:05 by Shefali Correa MD) Asthma Current use of anticoagulant therapy Endocarditis of prosthetic mitral valve Opioid use disorder Family History Family History Father No problems noted. Mother No problems noted. Family history: reviewed and not pertinent Surgical History Surgical History Heart valve replaced History of heart valve replacement with mechanical valve Presence of other heart-valve replacement Social History Social History Household Members: Family Housing: Apartment Do you presently have visiting nurse or other home services: No Alcohol intake: current Alcohol intake frequency: a few times a month Alcohol type: beer Patient Tobacco Use Status: Current everyday Tobacco user Tobacco use type: Cigarette Cigarettes Per Day: 2 Substance Use Type: Other service: No Current occupational status: unemployed Current occupation: [employer] Allergies Allergy/AdvReac Type Severity Reaction Status Date / Time hydrocodone [From VICODIN] Allergy Unknown GI UPSET Verified 06/10/22 14:46 Active Medications: Current Medications Acetaminophen (Acetaminophen 325 Mg Tablet) 650 mg PO Q6H PRN PRN Reason: Pain, Mild (Pain Scale 1-3) Last Admin: 08/20/22 20:23 Dose: 650 mg Albuterol Sulfate (Albuterol Sulfate 90 Mcg 8 Gm Inhaler) 2 puff INHALE Q4H PRN PRN Reason: Dyspnea Last Admin: 08/20/22 20:33 Dose: 2 puff Albuterol/Ipratropium (Albuterol/Iprat 2.5/0.5mg 3 Ml Ampul.Neb) 3 ml INHALE RQ4H PRN PRN Reason: sob Buprenorphine/Naloxone (Buprenorphine/Naloxone 4/1 Mg Film) 1 film SUBLINGUAL BID@1100,2300 [facility] Last Admin: 08/21/22 11:04 Dose: 1 film Capsaicin (Capsaicin 0.025% Cream 60 Gm Tube) 1 appl TOPICAL TID PRN; Protocol PRN Reason: nasuea Ferrous Sulfate (Ferrous Sulfate 324 Mg Tablet.) 324 mg PO DAILY [facility] Last Admin: 08/21/22 09:21 Dose: 324 mg Fluticasone Propionate (Fluticasone Propionate Nasal 16 Gm [place]) 1 spray NOSTRIL-B BID [facility] Last Admin: 08/21/22 09:54 Dose: Not Given Cefazolin Sodium/Dextrose (Ancef) 2 gm in 50 mls @ 100 mls/hr IV Q8H [facility] Stop: 09/10/22 03:29 Last Admin: 08/21/22 11:05 Dose: 100 mls/hr Omeprazole (Omeprazole 40 Mg Capsule.) 40 mg PO DAILY@0630 [facility] Last Admin: 08/21/22 06:13 Dose: Not Given Ondansetron HCl (Ondansetron Hcl 4 Mg/2 Ml Vial) 4 mg IVPUSH Q8H PRN PRN Reason: Nausea and Vomiting Last Admin: 08/20/22 20:23 Dose: 4 mg Pharmacy Consult (Consult Rx Vancomycin Dosing) 1 each MISCELLANE DAILY PRN PRN Reason: Consult order Pharmacy Consult (Consult Rx Vancomycin Dosing) 1 each MISCELLANE DAILY PRN PRN Reason: Consult order Rifampin (Rifampin 300 Mg Capsule) 300 mg PO Q8H [facility] Last Admin: 08/21/22 09:21 Dose: 300 mg Sodium Chloride (0.9 % Sodium Chloride Flush 3 Ml Syringe) [facility] Last Admin: 08/21/22 09:21 Dose: 3 ml Trazodone HCl (Trazodone Hcl 50 Mg Tablet) 50 mg PO BEDTIME [facility] Last Admin: 08/20/22 20:24 Dose: Not Given Venlafaxine HCl (Venlafaxine Hcl Er 75 Mg Cap.Er.24h) 75 mg PO DAILY [facility] Last Admin: 08/21/22 09:54 Dose: Not Given Vitamin D (Cholecalciferol (Vitamin D3) 25 Mcg Tablet) 50 mcg PO DAILY [facility] Last Admin: 08/21/22 09:21 Dose: 50 mcg Warfarin Sodium (Warfarin Sodium 5 Mg Tablet) 5 mg PO DAILY@1800 [facility] Last Admin: 08/20/22 17:26 Dose: 5 mg Home Medications Medication Instructions Recorded Confirmed Last Taken Type buprenorphine 8 mg-naloxone 2 mg 1 film sublingual DAILY 11/13/20 08/18/22 08/18/22 History sublingual film albuterol sulfate 90 mcg/actuation 2 puff inhalation NEEDED PRN 02/11/21 08/18/22 Unknown History aerosol inhaler Dyspnea cholecalciferol (vitamin D3) 50 50 mcg PO DAILY 02/11/21 08/18/22 Unknown History mcg (2,000 unit) tablet fluticasone propionate 50 1 spray intranasal BID 02/11/21 08/18/22 Unknown History mcg/actuation nasal spray,suspension naloxone 4 mg/actuation nasal spray 4 mg intranasal DAILY PRN Opioid 02/11/21 08/18/22 Unknown History Overdose trazodone 50 mg tablet 50 mg PO BEDTIME 02/11/21 08/18/22 Unknown History venlafaxine 75 mg capsule,extended 75 mg PO DAILY 02/11/21 08/18/22 Unknown History release 24 hr warfarin 5 mg tablet 5 mg PO WEFR 05/25/21 06/10/22 Unknown History warfarin 7.5 mg tablet 7.5 mg PO SUMOTUTHSA 05/25/21 06/10/22 Unknown History ferrous sulfate 325 mg (65 mg 325 mg PO DAILY 01/27/22 08/18/22 Unknown History iron) tablet (FeroSul) warfarin 5 mg tablet 10 mg PO WE 08/18/22 08/18/22 Unknown History warfarin 7.5 mg tablet 1 tab PO SUMOTUTHFRSA 08/18/22 08/18/22 08/16/22 History Physical Exam Vital Signs: Vital Signs: Last Vital Signs Temp 97.6 F 08/21/22 07:51 Pulse 96 08/21/22 07:51 Resp 16 08/21/22 07:51 BP 136/71 08/21/22 07:51 Pulse Ox 95 08/21/22 07:51 O2 Del Method 08/21/22 07:51 FiO2 98 08/20/22 19:12 BMI result Body Mass Index 27.5 Const: General: comfortable, ill appearing and tired appearing Orientation/consciousness: patient oriented x3 HEENT: Other: Unremarkable Head: Yes normal to inspection Neck: Neck: Yes normal visual inspection Chest: Chest palpation & inspection: normal inspection of the chest Resp: Auscultation: clear to auscultation bilaterally Cardio: Other: prosthetic sounds+; embolic appearing lesions in fingers. Palpation: normal PMI Heart sounds: S1 normal heart sound present, S2 normal heart sound present, no gallops, Murmur heart sound present systolic II/, at the apex, at the left sternal border and at the right sternal border and no rubs GI: Palpation (GI): Soft to palpation Back/Spine/Pelvis: Other: unremarkable Skin: General skin exam: no rashes or lesions noted Neuro: General: patient oriented x3 Extrem: General: Yes normal to inspection Psych: Mental Status: mental status grossly normal Objective Labs and Meds Result diagrams: 08/21/22 06:07 08/21/22 06:07 Lab results: Laboratory Results - last 24 hr 08/21/22 08/21/22 08/21/22 06:07 06:07 06:07 WBC 10.9 H RBC 4.94 Hgb 13.0 L Hct 38.5 L MCV 77.9 L MCH 26.3 L MCHC 33.8 RDW 14.0 Plt Count 68 L MPV 11.9 Absolute Nucleated RBC 0.000 Nucleated RBC % (auto) 0.0 PT 50.3 H INR 4.1 H Sodium 138 Potassium 3.3 Chloride 96 Carbon Dioxide 28 Anion Gap 17 BUN 15 Creatinine 0.78 Estim Creat Clear Calc 154.9 Estimated GFR > 60 Fasting Glucose 116 H Calcium 8.1 L Assessment and Plan (1) Endocarditis of prosthetic mitral valve: Status: Acute Plan Clinically, he appears ill. There is evidence of embolic lesions in his fingers. In the labs, platelet count is diminished. Today's level is 68. INR is on the higher side 4.1. Multiple sets of blood cultures positive for Staphylococcus aureus-MSSA. In the echocardiogram, LVEF preserved at 66%. Mean gradient across the mechanical mitral valve was elevated at 18 mm Hg. No clear vegetations obvious. Overall, high likelihood of infective endocarditis. Will proceed with CATA. He does have low platelets and elevated INR but his mitral valve will need to be looked at somewhat urgently. Hence, we will call the on-call team to proceed with CATA today. Keep patient NPO. To obtain 12 lead EKG. Likely tx to [facility] after CATA. Procedures Date of Service Date of Service: 08/21/22
[2022-08-21] MEDS: ondansetron HCL 4 MG/2 ML VIAL IVPUSH (11:08)
--- NOTE | 2022-08-21 12:12 | P.PNIM_ITS ---
Subjective Subjective Date of Service: 08/21/22 Interval History: cc: generalized weakness interval history:weakness Cardiovascular Cardiovascular: Reports no additional cardiovascular complaints Respiratory Respiratory: Reports no additional respiratory complaints Physical Exam Vital Signs: Vital Signs: Last Vital Signs Temp 97.6 F 08/21/22 07:51 Pulse 96 08/21/22 07:51 Resp 16 08/21/22 07:51 BP 136/71 08/21/22 07:51 Pulse Ox 95 08/21/22 07:51 O2 Del Method 08/21/22 07:51 FiO2 98 08/20/22 19:12 BMI result Body Mass Index 27.5 General: AO X 3, no acute distress Resp: CTA bilateral, no accessory muscles used CVS: S1,S2,RRR GI: soft, non tender, non distended Neuro: motor grossly intact, alert Psych: appropriate affect, appropriate insight Objective Data Active Medications Acetaminophen (Acetaminophen 325 Mg Tablet) 650 mg PO Q6H PRN PRN Reason: Pain, Mild (Pain Scale 1-3) Last Admin: 08/20/22 20:23 Dose: 650 mg Documented By: DENNY Albuterol Sulfate (Albuterol Sulfate 90 Mcg 8 Gm Inhaler) 2 puff INHALE Q4H PRN PRN Reason: Dyspnea Last Admin: 08/20/22 20:33 Dose: 2 puff Documented By: DENNY Albuterol/Ipratropium (Albuterol/Iprat 2.5/0.5mg 3 Ml Ampul.Neb) 3 ml INHALE RQ4H PRN PRN Reason: sob Buprenorphine/Naloxone (Buprenorphine/Naloxone 4/1 Mg Film) 1 film SUBLINGUAL BID@1100,2300 [facility] Last Admin: 08/21/22 11:04 Dose: 1 film Documented By: DA Capsaicin (Capsaicin 0.025% Cream 60 Gm Tube) 1 appl TOPICAL TID PRN; Protocol PRN Reason: nasuea Ferrous Sulfate (Ferrous Sulfate 324 Mg Tablet.) 324 mg PO DAILY [facility] Last Admin: 08/21/22 09:21 Dose: 324 mg Documented By: DA Fluticasone Propionate (Fluticasone Propionate Nasal 16 Gm [place]) 1 spray NOSTRIL-B BID [facility] Last Admin: 08/21/22 09:54 Dose: Not Given Documented By: DA Non-Admin Reason: Patient Refused Cefazolin Sodium/Dextrose (Ancef) 2 gm in 50 mls @ 100 mls/hr IV Q8H [facility] Stop: 09/10/22 03:29 Last Infusion: 08/21/22 11:15 Dose: 0 mls/hr Documented By: DA Omeprazole (Omeprazole 40 Mg Capsule.Dr) 40 mg PO DAILY@0630 [facility] Last Admin: 08/21/22 06:13 Dose: Not Given Documented By: DENNY Non-Admin Reason: Patient Refused Ondansetron HCl (Ondansetron Hcl 4 Mg/2 Ml Vial) 4 mg IVPUSH Q8H PRN PRN Reason: Nausea and Vomiting Last Admin: 08/21/22 11:08 Dose: 4 mg Documented By: DA Pharmacy Consult (Consult Rx Vancomycin Dosing) 1 each MISCELLANE DAILY PRN PRN Reason: Consult order Pharmacy Consult (Consult Rx Vancomycin Dosing) 1 each MISCELLANE DAILY PRN PRN Reason: Consult order Rifampin (Rifampin 300 Mg Capsule) 300 mg PO Q8H [facility] Last Admin: 08/21/22 09:21 Dose: 300 mg Documented By: DA Sodium Chloride (0.9 % Sodium Chloride Flush 3 Ml Syringe) 3 ml IVFLUSH QSHIFT [facility] Last Admin: 08/21/22 09:21 Dose: 3 ml Documented By: DA Trazodone HCl (Trazodone Hcl 50 Mg Tablet) 50 mg PO BEDTIME [facility] Last Admin: 08/20/22 20:24 Dose: Not Given Documented By: DENNY Non-Admin Reason: Patient Refused Venlafaxine HCl (Venlafaxine Hcl Er 75 Mg Cap.Er.24h) 75 mg PO DAILY [facility] Last Admin: 08/21/22 09:54 Dose: Not Given Documented By: DA Non-Admin Reason: Patient Refused Vitamin D (Cholecalciferol (Vitamin D3) 25 Mcg Tablet) 50 mcg PO DAILY [facility] Last Admin: 08/21/22 09:21 Dose: 50 mcg Documented By: DA Warfarin Sodium (Warfarin Sodium 5 Mg Tablet) 5 mg PO DAILY@1800 [facility] Last Admin: 08/20/22 17:26 Dose: 5 mg Documented By: JUNAID Labs CBC & Chem 7: 08/21/22 06:07 08/21/22 06:07 Labs: Laboratory Results - last 24 hr 08/21/22 08/21/22 08/21/22 06:07 06:07 06:07 MCV 77.9 L MCH 26.3 L MCHC 33.8 RDW 14.0 Plt Count 68 L MPV 11.9 Absolute Nucleated RBC 0.000 Nucleated RBC % (auto) 0.0 PT 50.3 H INR 4.1 H Anion Gap 17 Estim Creat Clear Calc 154.9 Estimated GFR > 60 Fasting Glucose 116 H Calcium 8.1 L Microbiology Microbiology Results: Microbiology 08/20/22 07:13 Blood Culture - Final Blood - Venous Staphylococcus aureus 08/20/22 07:13 Blood Culture - Final Blood - Venous Staphylococcus aureus 08/18/22 07:37 Blood Culture - Final Blood - Venous Staphylococcus aureus 08/18/22 07:37 Blood Culture - Final Blood - Venous Staphylococcus aureus Assessment and Plan (1) Myalgia: Status: Acute Plan 37M with PMH 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 presented with abd pain, feeling unwell, now with positive blood cultures sepsis due to MSSA bacteremia in IVDA, in patient with mechanical MVR, concern for endocarditis thrombocytopenia unlikely due to sepsis, follow cbc abx changed to ancef, rifampin 08/18, 08/20 cultures positive follow up repeat blood cultures 08/22 echo with no obvious vegetation, plan for CATA coumadin goal inr 2.5-3.5 opiate dependence suboxone mild hyperbilli and transaminitis negative hepatitis panel full code reason for continued hospitalization:positive cultures, awaiting clearance Quality Stroke Does the patient have a stroke diagnosis?: No VTE Prior VTE?: No VTE Risk Level:: Medical - moderate - high VTE Device Contraindication: Treatment Not Tolerated VTE Drug Contraindication: N/A - Med Ordered
[2022-08-21 12:37] VITALS: BP 101/53; PULSE 99; RESP 15; TEMP 37.1; O2SAT 97
[2022-08-21 12:52] VITALS: BP 110/62; PULSE 90; RESP 16; O2SAT 95
[2022-08-21 13:07] VITALS: BP 114/63; PULSE 96; RESP 16; TEMP 37.1; O2SAT 95
--- NOTE | 2022-08-21 13:23 | PM.DS ---
DS: Providers Provider Date of Service: 08/21/22 Date of admission: 08/18/22 10:14 Primary care physician: Unknown Physician Consults: 08/19/22 07:27 Consult to Infectious Diseases Routine Consulting Provider: Shefali Correa Reason for consultation: bacteremia in IVDA and mechanical valve 08/20/22 16:15 Consult to Cardiology Routine Consulting Provider: Goran Reyes Reason for consultation: CATA, MSSA bacteremia, mechanical valve, IE stigmata DS: Diagnosis Discharge Diagnosis (1) Myalgia: Status: Acute DS: Summary Hospital Course Hospital Course: from intiial hpi: This is a 37 year old M with a PMH of mitral valve replacement on coumadin, asthma and chronic opiate dependence on Suboxone, who presents to the ED with a 2 day history of intractable nausea, vomiting and intolerance to oral intake. The patient reports his symptoms began 2 days [employer] with nausea followed by non-bloody/non-bilious vomiting. He denies any abdominal pain, but does report heartburn symptoms which began after 5 bouts of vomitus. He reports the following day he felt feverish, but no objective temperatures reported at home. Sick contacts at home including children who had viral illness (respiratory and not GI) the week prior to admission.? He states that he went to see his PCP at the [facility] on the day prior to admission. At the clinic, he reports he was tested for influenza/covid/strep throat which were all negative. However, he appeared ill and hence was directed to the ED. Work up in the ED shows significant luekocytosis without a definitive source of infection. His procalcitonin is greater than 18 and CRP greater than 30. His BUN/Cr ratio is elevated and clinically appears dehydrated. Due to his history of MVR, he has been initiated on empiric IV antibiotics and will be admitted for further care. hospital course: Patient was admitted for sepsis due to prosthetic mitral valve and [place] aortic valve MSSA endocarditis. He was given IV cefazolin and rifampin. Blood cultures from 08/18 and 08/20 grew MSSA, he underwent CATA on 08/21 which revealed large vegetation on mitral valve, report is pending. Plan is to transfer to [facility] for cardiac surgery evaluation. Firs opiate dependence he was continued on Suboxone. Time Spent with Patient Time attestation: Total time spent providing and/or coordinating discharge services: Discharge coordination time: Greater than 30 minutes Quality: Safe Use of Opioids Does Pt have an Active Cancer Diagnosis on the Problem List?: No Quality: Stroke Does the patient have a stroke diagnosis?: No Physical Exam Vital Signs: Vital Signs: Last Vital Signs Temp 98.7 F 08/21/22 13:07 Pulse 96 08/21/22 13:07 Resp 16 08/21/22 13:07 BP 114/63 08/21/22 13:07 Pulse Ox 95 08/21/22 13:07 O2 Del Method 08/21/22 13:07 O2 Flow Rate 4 08/21/22 12:37 FiO2 98 08/20/22 19:12 BMI result Body Mass Index 27.5 General: AO X 3, no acute distress Resp: CTA bilateral, no accessory muscles used CVS: S1,S2,RRR GI: soft, non tender, non distended Neuro: motor grossly intact, alert Psych: appropriate affect, appropriate insight DS: Data Data Completed and Pending Labs on day of discharge: Laboratory Results - last 24 hr 08/21/22 08/21/22 08/21/22 06:07 06:07 06:07 WBC 10.9 H RBC 4.94 Hgb 13.0 L Hct 38.5 L MCV 77.9 L MCH 26.3 L MCHC 33.8 RDW 14.0 Plt Count 68 L MPV 11.9 Absolute Nucleated RBC 0.000 Nucleated RBC % (auto) 0.0 PT 50.3 H INR 4.1 H Sodium 138 Potassium 3.3 Chloride 96 Carbon Dioxide 28 Anion Gap 17 BUN 15 Creatinine 0.78 Estim Creat Clear Calc 154.9 Estimated GFR > 60 Fasting Glucose 116 H Calcium 8.1 L Discharge Plan Discharge Anticipated Discharge Date/Time: 08/21/22 13:20 Patient Disposition: Xfer Acute Care Hospital Discharge Diagnosis: endocarditis Referrals: Physician,Unknown J [Primary Care Provider] - 1 Week Discharge Medications: New cefazolin in dextrose (iso-os) 2 gram/50 mL Piggyback 2 g IV Q8H Qty: 0 0RF rifampin 300 mg Capsule 300 mg PO Q8H Qty: 0 0RF Continued warfarin 7.5 mg Tablet 7.5 mg PO CHAUNCEYTUTHSA Protocol: Dose Management Condition: Tuesday (Week One) Dose/Route: 7.5 mg Instruction: 1 x 7.5 mg tablet Condition: Tuesday Dose/Route: 0 mg Instruction: 0 tablets Condition: Tuesday Dose/Route: 7.5 mg Instruction: 1 x 7.5 mg tablet Condition: Tuesday Dose/Route: 10 mg Instruction: 2 x 5 mg tablets Condition: Dose/Route: 0 mg Instruction: 0 tablets Condition: Tuesday Dose/Route: 5 mg Instruction: 1 x 5 mg tablet Condition: Tuesday Dose/Route: 7.5 mg Instruction: 1 x 7.5 mg tablet Condition: Tuesday ( Two) Dose/Route: 7.5 mg Instruction: 1 x 7.5 mg tablet Condition: Tuesday Dose/Route: 7.5 mg Instruction: 1 x 7.5 mg tablet Condition: Tuesday Dose/Route: 7.5 mg Instruction: 1 x 7.5 mg tablet Condition: Tuesday Dose/Route: 10 mg Instruction: 2 x 5 mg tablets Condition: Dose/Route: 7.5 mg Instruction: 1 x 7.5 mg tablet Condition: Tuesday Dose/Route: 7.5 mg Instruction: 1 x 7.5 mg tablet Condition: Tuesday Dose/Route: 7.5 mg Instruction: 1 x 7.5 mg tablet Protocol Text: Adjustment Start Date: 06/10/22 INR Value: 4.8 INR Date: 06/10/22 Recheck Date: 06/17/22 Additional Instructions: hold warfarin today and take 5mg tomm eat greens to lower inr no red fruit/orange veg for 2 days monitor for bleeding or bruising warfarin 5 mg Tablet 5 mg PO WEFR Protocol: Dose Management Condition: Tuesday ( One) Dose/Route: 7.5 mg Instruction: 1 x 7.5 mg tablet Condition: Tuesday Dose/Route: 0 mg Instruction: 0 tablets Condition: Tuesday Dose/Route: 7.5 mg Instruction: 1 x 7.5 mg tablet Condition: Tuesday Dose/Route: 10 mg Instruction: 2 x 5 mg tablets Condition: Dose/Route: 0 mg Instruction: 0 tablets Condition: Tuesday Dose/Route: 5 mg Instruction: 1 x 5 mg tablet Condition: Tuesday Dose/Route: 7.5 mg Instruction: 1 x 7.5 mg tablet Condition: Tuesday ( Two) Dose/Route: 7.5 mg Instruction: 1 x 7.5 mg tablet Condition: Tuesday Dose/Route: 7.5 mg Instruction: 1 x 7.5 mg tablet Condition: Tuesday Dose/Route: 7.5 mg Instruction: 1 x 7.5 mg tablet Condition: Tuesday Dose/Route: 10 mg Instruction: 2 x 5 mg tablets Condition: Dose/Route: 7.5 mg Instruction: 1 x 7.5 mg tablet Condition: Tuesday Dose/Route: 7.5 mg Instruction: 1 x 7.5 mg tablet Condition: Tuesday Dose/Route: 7.5 mg Instruction: 1 x 7.5 mg tablet Protocol Text: Adjustment Start Date: 06/10/22 INR Value: 4.8 INR Date: 06/10/22 Recheck Date: 06/17/22 Additional Instructions: hold warfarin today and take 5mg tomm eat greens to lower inr no red fruit/orange veg for 2 days monitor for bleeding or bruising warfarin 7.5 mg tablet 1 tab PO SUMOTUTHFRSA warfarin 5 mg tablet 10 mg PO WE Rx Instructions: based on INR, patients dosing changes buprenorphine-naloxone 8-2 mg film 1 film sublingual DAILY albuterol sulfate 90 mcg/actuation HFA aerosol inhaler 2 puff inhalation NEEDED PRN (Reason: Dyspnea) venlafaxine 75 mg capsule,extended release 24hr 75 mg PO DAILY cholecalciferol (vitamin D3) 50 mcg (2,000 unit) tablet 50 mcg PO DAILY trazodone 50 mg tablet 50 mg PO BEDTIME naloxone 4 mg/actuation spray,non-aerosol 4 mg intranasal DAILY PRN (Reason: Opioid Overdose) fluticasone propionate 50 mcg/actuation spray,suspension 1 spray intranasal BID ferrous sulfate [FeroSul] 325 mg (65 mg iron) tablet 325 mg PO DAILY Discharge Orders: Discharge Order (Routine); Ordered 08/21/22 Ordered By: Niranjan Arce Diet: Advance to usual diet Activity on Discharge: As tolerated Stand Alone Forms: Patient Portal Discharge page Care Plan Goals: treat endocarditis Health Concerns: endocarditis Plan of Treatment: trasnfer to [facility] [place] Assessment: see above
--- NOTE | 2022-08-21 13:56 | MHC.CM.PN ---
ACUTE HOSPITAL TRANSFER: PATIENT TRANSFERRED TO [facility] FOR SURGICAL EVALUATION FOR ENDOCARDITIS.
[2022-08-21 14:52] VITALS: BP 113/67; PULSE 84; RESP 18; TEMP 36.1; O2SAT 94
[2022-08-23 07:13] LABS: Gentamicin Trough 1.5 mcg/mL (0.3-1.9)
== END 2022-08-21 18:00 | disposition short-term general hospital (02) | DRG 314 ==
LOC: HO.ED 08-18 06:18 → HO.EDOVER 08-18 10:18 → HO.IMC 08-18 16:53
PROVIDERS: Internal Medicine; Physician Assistant; Admitting Provider Family Medicine; Emergency Provider Emergency Medicine; Visit Provider Internal Medicine
PROC: B24BZZ4 Ultrasonography of Heart with Aorta, Transesophageal (ICD-10-PCS; CPT 93312; principal; 2022-08-21 12:00)
DX: T82.6XXA Infection and inflammatory reaction due to cardiac valve prosthesis, initial encounter (principal); A41.01 Sepsis due to Methicillin susceptible Staphylococcus aureus; F11.20 Opioid dependence, uncomplicated; F17.210 Nicotine dependence, cigarettes, uncomplicated; R79.1 Abnormal coagulation profile; I08.0 Rheumatic disorders of both mitral and aortic valves; B95.61 Methicillin susceptible Staphylococcus aureus infection as the cause of diseases classified elsewhere; R74.01 Elevation of levels of liver transaminase levels; D69.59 Other secondary thrombocytopenia; E86.0 Dehydration; Z20.822 Contact with and (suspected) exposure to COVID-19; Z71.6 Tobacco abuse counseling; Z79.01 Long term (current) use of anticoagulants; Z79.51 Long term (current) use of inhaled steroids; Z79.899 Other long term (current) drug therapy
CPT/HCPCS: 0241U; 36415; 70450; 71045; 80048; 80053; 80076; 80170; 80202; 80307; 81001; 82550; 82565; 83605; 83690; 84145; 84484; 85027; 85610; 85652; 86140; 86704; 86706; 86803; 87040; 87077; 87147; 87186; 87205; 87340; 87633; 87635; 93005; 93306; 99285; J0690; J0692; J1580; J2250; J2270; J2405; J3370

== ENCOUNTER 2022-09-15 14:19 | Outpatient (REF) | payer OTHER, SELFPAY ==
[2022-09-15 14:40] LABS: INTERNATIONAL NORM RATIO 2.6 (0.9-1.1)
== END 2022-09-15 14:20 | disposition home or self-care (01) ==
LOC: HO.LNP 14:19
PROVIDERS: Visit Provider Registered Nurse
DX: I38 Endocarditis, valve unspecified (principal)
CPT/HCPCS: 85610

== ENCOUNTER → 2022-10-04 16:48 | Outpatient (BNVA) | payer OTHER, SELFPAY | PROVIDERS: PCP Registered Nurse; Visit Provider Internal Medicine | DX: Z95.0 Presence of cardiac pacemaker (principal); Z79.01 Long term (current) use of anticoagulants; Z51.81 Encounter for therapeutic drug level monitoring | CPT/HCPCS: 99211 ==

== ENCOUNTER → 2022-10-13 14:10 | Outpatient (BNVA) | payer OTHER, SELFPAY | PROVIDERS: PCP Registered Nurse; Visit Provider Internal Medicine | DX: Z95.2 Presence of prosthetic heart valve (principal); Z79.01 Long term (current) use of anticoagulants; Z51.81 Encounter for therapeutic drug level monitoring | CPT/HCPCS: 85610; 99212 ==

== ENCOUNTER → 2022-10-15 16:18 | Outpatient (BNVA) | payer OTHER, SELFPAY | PROVIDERS: PCP Registered Nurse; Visit Provider Internal Medicine | DX: Z95.2 Presence of prosthetic heart valve (principal); Z79.01 Long term (current) use of anticoagulants; Z51.81 Encounter for therapeutic drug level monitoring | CPT/HCPCS: 85610; 99211 ==

== ENCOUNTER → 2022-10-19 14:01 | Outpatient (BNVA) | payer OTHER, SELFPAY | PROVIDERS: PCP Registered Nurse; Visit Provider Internal Medicine | DX: Z95.2 Presence of prosthetic heart valve (principal); Z51.81 Encounter for therapeutic drug level monitoring; Z79.01 Long term (current) use of anticoagulants | CPT/HCPCS: 85610; 99211 ==

== ENCOUNTER → 2022-10-22 13:45 | Outpatient (BNVA) | payer OTHER, SELFPAY | PROVIDERS: PCP Internal Medicine; Visit Provider Internal Medicine | DX: Z95.2 Presence of prosthetic heart valve (principal); Z79.01 Long term (current) use of anticoagulants; Z51.81 Encounter for therapeutic drug level monitoring | CPT/HCPCS: 85610 ==

== ENCOUNTER → 2022-10-25 15:32 | Outpatient (BNVA) | payer OTHER, SELFPAY | PROVIDERS: PCP Internal Medicine; Visit Provider Internal Medicine | DX: Z95.2 Presence of prosthetic heart valve (principal); Z79.01 Long term (current) use of anticoagulants; Z51.81 Encounter for therapeutic drug level monitoring | CPT/HCPCS: 85610; 99212 ==

== ENCOUNTER → 2022-10-28 14:14 | Outpatient (BNVA) | payer OTHER, SELFPAY | PROVIDERS: PCP Internal Medicine; Visit Provider Internal Medicine | DX: Z95.2 Presence of prosthetic heart valve (principal); Z79.01 Long term (current) use of anticoagulants; Z51.81 Encounter for therapeutic drug level monitoring | CPT/HCPCS: 85610; 99211 ==

== ENCOUNTER → 2022-11-02 13:07 | Outpatient (BNVA) | payer OTHER, SELFPAY | PROVIDERS: PCP Internal Medicine; Visit Provider Internal Medicine | DX: Z95.2 Presence of prosthetic heart valve (principal); Z79.01 Long term (current) use of anticoagulants; Z51.81 Encounter for therapeutic drug level monitoring | CPT/HCPCS: 85610; 99211 ==

== ENCOUNTER → 2022-11-04 13:50 | Outpatient (BNVA) | payer OTHER, SELFPAY | PROVIDERS: PCP Internal Medicine; Visit Provider Internal Medicine | DX: Z95.2 Presence of prosthetic heart valve (principal); Z79.01 Long term (current) use of anticoagulants; Z51.81 Encounter for therapeutic drug level monitoring | CPT/HCPCS: 85610; 99211 ==

== ENCOUNTER → 2022-11-09 14:27 | Outpatient (BNVA) | payer OTHER, SELFPAY | PROVIDERS: PCP Registered Nurse; Visit Provider Internal Medicine | DX: Z95.2 Presence of prosthetic heart valve (principal); Z79.01 Long term (current) use of anticoagulants; Z51.81 Encounter for therapeutic drug level monitoring | CPT/HCPCS: 85610; 99211 ==

== ENCOUNTER → 2022-11-11 14:31 | Outpatient (BNVA) | payer OTHER, SELFPAY | PROVIDERS: PCP Registered Nurse; Visit Provider Internal Medicine | DX: Z95.2 Presence of prosthetic heart valve (principal); Z79.01 Long term (current) use of anticoagulants; Z51.81 Encounter for therapeutic drug level monitoring | CPT/HCPCS: 85610; 99211 ==

== ENCOUNTER → 2022-11-18 15:06 | Outpatient (BNVA) | payer OTHER, SELFPAY | PROVIDERS: PCP Registered Nurse; Visit Provider Internal Medicine | DX: Z95.2 Presence of prosthetic heart valve (principal); Z79.01 Long term (current) use of anticoagulants; Z51.81 Encounter for therapeutic drug level monitoring | CPT/HCPCS: 85610; 99211 ==

== ENCOUNTER → 2022-11-25 14:32 | Outpatient (BNVA) | payer OTHER, SELFPAY | PROVIDERS: PCP Registered Nurse; Visit Provider Internal Medicine | DX: Z95.2 Presence of prosthetic heart valve (principal); Z79.01 Long term (current) use of anticoagulants; Z51.81 Encounter for therapeutic drug level monitoring | CPT/HCPCS: 85610; 99211 ==

== ENCOUNTER → 2022-12-03 14:45 | Outpatient (BNVA) | payer OTHER, SELFPAY | PROVIDERS: PCP Registered Nurse; Visit Provider Internal Medicine | DX: Z95.2 Presence of prosthetic heart valve (principal); Z79.01 Long term (current) use of anticoagulants; Z51.81 Encounter for therapeutic drug level monitoring | CPT/HCPCS: 85610; 99211 ==

== ENCOUNTER → 2022-12-09 14:41 | Outpatient (BNVA) | payer OTHER, SELFPAY | PROVIDERS: PCP Registered Nurse; Visit Provider Internal Medicine | DX: Z95.2 Presence of prosthetic heart valve (principal); Z79.01 Long term (current) use of anticoagulants; Z51.81 Encounter for therapeutic drug level monitoring | CPT/HCPCS: 85610; 99211 ==

== ENCOUNTER → 2022-12-16 14:30 | Outpatient (BNVA) | payer OTHER, SELFPAY | PROVIDERS: PCP Registered Nurse; Visit Provider Internal Medicine | DX: Z95.2 Presence of prosthetic heart valve (principal); Z79.01 Long term (current) use of anticoagulants; Z51.81 Encounter for therapeutic drug level monitoring | CPT/HCPCS: 85610; 99211 ==

== ENCOUNTER → 2022-12-24 13:35 | Outpatient (BNVA) | payer OTHER, SELFPAY | PROVIDERS: PCP Registered Nurse; Visit Provider Internal Medicine | DX: Z95.2 Presence of prosthetic heart valve (principal); Z79.01 Long term (current) use of anticoagulants; Z51.81 Encounter for therapeutic drug level monitoring | CPT/HCPCS: 85610; 99211 ==

== ENCOUNTER → 2023-01-05 13:59 | Outpatient (BNVA) | payer OTHER, SELFPAY | PROVIDERS: PCP Registered Nurse; Visit Provider Internal Medicine | DX: Z95.2 Presence of prosthetic heart valve (principal); Z79.01 Long term (current) use of anticoagulants; Z51.81 Encounter for therapeutic drug level monitoring | CPT/HCPCS: 85610; 99211 ==

== ENCOUNTER → 2023-01-10 08:06 | Outpatient (BNVA) | payer OTHER, SELFPAY | PROVIDERS: PCP Registered Nurse; Visit Provider Internal Medicine | DX: Z95.2 Presence of prosthetic heart valve (principal); Z79.01 Long term (current) use of anticoagulants; Z51.81 Encounter for therapeutic drug level monitoring | CPT/HCPCS: 85610; 99211 ==

== ENCOUNTER → 2023-01-17 11:51 | Outpatient (BNVA) | payer OTHER, SELFPAY | PROVIDERS: PCP Registered Nurse; Visit Provider Internal Medicine | DX: Z95.2 Presence of prosthetic heart valve (principal); Z79.01 Long term (current) use of anticoagulants; Z51.81 Encounter for therapeutic drug level monitoring | CPT/HCPCS: 85610; 99211 ==

== ENCOUNTER → 2023-01-20 14:21 | Outpatient (BNVA) | payer OTHER, SELFPAY | PROVIDERS: PCP Registered Nurse; Visit Provider Internal Medicine | DX: Z95.2 Presence of prosthetic heart valve (principal); Z79.01 Long term (current) use of anticoagulants; Z51.81 Encounter for therapeutic drug level monitoring | CPT/HCPCS: 85610; 99211 ==

== ENCOUNTER → 2023-01-25 10:54 | Outpatient (BNVA) | payer OTHER, SELFPAY | PROVIDERS: PCP Registered Nurse; Visit Provider Internal Medicine | DX: Z95.2 Presence of prosthetic heart valve (principal); Z79.01 Long term (current) use of anticoagulants; Z51.81 Encounter for therapeutic drug level monitoring | CPT/HCPCS: 85610; 99211 ==

== ENCOUNTER → 2023-02-02 10:48 | Outpatient (BNVA) | payer OTHER, SELFPAY | PROVIDERS: PCP Registered Nurse; Visit Provider Internal Medicine | DX: Z95.2 Presence of prosthetic heart valve (principal); Z79.01 Long term (current) use of anticoagulants; Z51.81 Encounter for therapeutic drug level monitoring | CPT/HCPCS: 85610; 99211 ==

== ENCOUNTER → 2023-02-09 11:09 | Outpatient (BNVA) | payer OTHER, SELFPAY | PROVIDERS: PCP Registered Nurse; Visit Provider Internal Medicine | DX: Z95.2 Presence of prosthetic heart valve (principal); Z79.01 Long term (current) use of anticoagulants; Z51.81 Encounter for therapeutic drug level monitoring | CPT/HCPCS: 85610; 99211 ==

== ENCOUNTER → 2023-02-16 13:02 | Outpatient (BNVA) | payer OTHER, SELFPAY | PROVIDERS: PCP Registered Nurse; Visit Provider Internal Medicine | DX: Z95.2 Presence of prosthetic heart valve (principal); Z51.81 Encounter for therapeutic drug level monitoring; Z79.01 Long term (current) use of anticoagulants | CPT/HCPCS: 85610; 99211 ==

== ENCOUNTER → 2023-02-22 13:17 | Outpatient (BNVA) | payer OTHER, SELFPAY | PROVIDERS: PCP Registered Nurse; Visit Provider Internal Medicine | DX: Z95.2 Presence of prosthetic heart valve (principal); Z79.01 Long term (current) use of anticoagulants; Z51.81 Encounter for therapeutic drug level monitoring | CPT/HCPCS: 85610; 99211 ==

== ENCOUNTER → 2023-03-01 11:28 | Outpatient (BNVA) | payer OTHER, SELFPAY | PROVIDERS: PCP Registered Nurse; Visit Provider Internal Medicine | DX: Z95.2 Presence of prosthetic heart valve (principal); Z79.01 Long term (current) use of anticoagulants; Z51.81 Encounter for therapeutic drug level monitoring | CPT/HCPCS: 85610; 99211 ==

== ENCOUNTER → 2023-03-08 15:05 | Outpatient (BNVA) | payer OTHER, SELFPAY | PROVIDERS: PCP Registered Nurse; Visit Provider Internal Medicine | DX: Z95.2 Presence of prosthetic heart valve (principal); Z79.01 Long term (current) use of anticoagulants; Z51.81 Encounter for therapeutic drug level monitoring | CPT/HCPCS: 85610; 99211 ==

== ENCOUNTER → 2023-03-17 14:02 | Outpatient (BNVA) | payer OTHER, SELFPAY | PROVIDERS: PCP Registered Nurse; Visit Provider Internal Medicine | DX: Z95.2 Presence of prosthetic heart valve (principal); Z79.01 Long term (current) use of anticoagulants; Z51.81 Encounter for therapeutic drug level monitoring | CPT/HCPCS: 85610; 99211 ==

== ENCOUNTER → 2023-03-23 13:57 | Outpatient (BNVA) | payer OTHER, SELFPAY | PROVIDERS: PCP Registered Nurse; Visit Provider Internal Medicine | DX: Z95.2 Presence of prosthetic heart valve (principal); Z79.01 Long term (current) use of anticoagulants; Z51.81 Encounter for therapeutic drug level monitoring | CPT/HCPCS: 85610; 99211 ==

== ENCOUNTER → 2023-04-08 14:57 | Outpatient (BNVA) | payer OTHER, SELFPAY | PROVIDERS: PCP Registered Nurse; Visit Provider Internal Medicine | DX: Z95.2 Presence of prosthetic heart valve (principal); Z79.01 Long term (current) use of anticoagulants; Z51.81 Encounter for therapeutic drug level monitoring | CPT/HCPCS: 85610; 99212 ==

== ENCOUNTER → 2023-04-15 15:15 | Outpatient (BNVA) | payer OTHER, SELFPAY | PROVIDERS: PCP Registered Nurse; Visit Provider Internal Medicine | DX: Z95.2 Presence of prosthetic heart valve (principal); Z79.01 Long term (current) use of anticoagulants; Z51.81 Encounter for therapeutic drug level monitoring | CPT/HCPCS: 85610; 99211 ==

== ENCOUNTER → 2023-04-19 15:14 | Outpatient (BNVA) | payer OTHER, SELFPAY | PROVIDERS: PCP Registered Nurse; Visit Provider Internal Medicine | DX: Z95.2 Presence of prosthetic heart valve (principal); Z79.01 Long term (current) use of anticoagulants; Z51.81 Encounter for therapeutic drug level monitoring | CPT/HCPCS: 85610; 99211 ==

== ENCOUNTER 2023-04-20 11:00 | Outpatient (RCR) | payer OTHER, SELFPAY | END 2023-06-09 15:17 | disposition home or self-care (01) | LOC: HO.OT 11:00 | PROVIDERS: PCP Registered Nurse; Visit Provider Registered Nurse | DX: R29.898 Other symptoms and signs involving the musculoskeletal system (principal) | CPT/HCPCS: 29130; 97110; 97112; 97166; 97530; 97760 ==

== ENCOUNTER → 2023-04-28 13:08 | Outpatient (BNVA) | payer OTHER, SELFPAY | PROVIDERS: PCP Registered Nurse; Visit Provider Internal Medicine | DX: Z95.2 Presence of prosthetic heart valve (principal); Z79.01 Long term (current) use of anticoagulants; Z51.81 Encounter for therapeutic drug level monitoring | CPT/HCPCS: 85610; 99211 ==

== ENCOUNTER → 2023-05-05 15:25 | Outpatient (BNVA) | payer OTHER, SELFPAY | PROVIDERS: PCP Registered Nurse; Visit Provider Internal Medicine | DX: Z95.2 Presence of prosthetic heart valve (principal); Z79.01 Long term (current) use of anticoagulants; Z51.81 Encounter for therapeutic drug level monitoring | CPT/HCPCS: 85610; 99211 ==

== ENCOUNTER 2023-05-13 15:22 | Outpatient (REF) | payer OTHER, SELFPAY | END 2023-05-13 15:23 | disposition home or self-care (01) | LOC: HO.LAB 15:22 | PROVIDERS: PCP Registered Nurse; Visit Provider Internal Medicine | DX: Z95.2 Presence of prosthetic heart valve (principal); Z51.81 Encounter for therapeutic drug level monitoring; Z79.01 Long term (current) use of anticoagulants | CPT/HCPCS: 36415; 85610; 99212 ==

== ENCOUNTER 2023-05-17 14:39 | Outpatient (AMB) | payer OTHER, SELFPAY ==
--- NOTE | 2023-05-17 14:48 | MHC.OFFVISCO ---
Intake Intake Visit Reasons: Anticoagulation Allergies hydrocodone [From VICODIN] Allergy (Unknown, Verified 05/17/23 14:42) GI UPSET Medication List - Last Reconciled 05/17/23 by Lindsay Couch RN acetaminophen ER (Tylenol Arthritis Pain) 1,300 mg PO Q8H PRN albuterol sulfate 90 mcg/actuation (ProAir HFA) 2 puffs inhalation Q4-6H PRN amoxicillin 2,000 mg PO ONCE PRN buprenorphine-naloxone 8-2 mg (Suboxone) 1 film sublingual BID cholecalciferol (vitamin D3) 50 mcg PO DAILY ferrous sulfate (Feosol) 325 mg PO Q OTHER DAY inhalational spacing device ([employer] [facility] spacer) As directed loratadine 10 mg PO DAILY ondansetron 8 mg PO Q12H PRN ondansetron HCl 4 mg PO Q8H PRN polyethylene glycol 3350 (Miralax) 17 grams PO DAILY sennosides (senna) 8.6 mg PO BEDTIME PRN trazodone 50 mg PO BEDTIME warfarin 7.5 mg See Protocol PO 2XW warfarin 10 mg See Protocol PO 5XW Nursing Note INR: 3.4- in therapeutic range Medications and supplements reviewed No changes in health, diet, medications, or supplements, Denies any signs and symptoms of bleeding or bruising or clotting. Bleeding, bruising, clotting discussed Nutritional guidance given Dose: 7.5mg x 5, 10mg x 2 F/U INR: 1 week Patient verbalizes understanding of instructions given previous inr elev- reduction in weekly dosing pt states will be away for several days Anti-Coag Initial Assessment Social Hx Patient Tobacco Use Status: Former Tobacco user Tobacco use type: Cigarette alcohol intake: current Alcohol intake frequency: a few times a month Coding Level of Care Code Est Patient Level 1 Diagnoses Current use of anticoagulant therapy Z79.01 Results AMB INR Fingerstick AMB INR Fingerstick 3.4 Last Edit by Lindsay Couch RN on 05/17/23 14:50 Assessment & Plan Assessment & Plan (1) Current use of anticoagulant therapy: Code(s): 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
[2023-05-17 15:40] LABS: Prothrombin Time Whole Bld POC 40.9 sec (11.1-13.5); ~PT, ~INR - Anti Coag Clinic 3.4 (0.9-1.1)
== END 2023-05-17 15:03 | disposition home or self-care (01) ==
LOC: HO.ACS 14:39
PROVIDERS: PCP Registered Nurse; Visit Provider Internal Medicine
DX: Z79.01 Long term (current) use of anticoagulants (principal)

== ENCOUNTER → 2023-05-17 14:39 | Outpatient (BNVA) | payer OTHER, SELFPAY | PROVIDERS: PCP Registered Nurse; Visit Provider Internal Medicine | DX: Z95.2 Presence of prosthetic heart valve (principal); Z79.01 Long term (current) use of anticoagulants; Z51.81 Encounter for therapeutic drug level monitoring | CPT/HCPCS: 85610; 99211 ==

== ENCOUNTER → 2023-05-31 15:10 | Outpatient (BNVA) | payer OTHER, SELFPAY | PROVIDERS: PCP Registered Nurse; Visit Provider Internal Medicine | DX: Z95.2 Presence of prosthetic heart valve (principal); Z51.81 Encounter for therapeutic drug level monitoring; Z79.01 Long term (current) use of anticoagulants | CPT/HCPCS: 85610; 99211 ==

== ENCOUNTER 2023-06-08 14:47 | Outpatient (AMB) | payer OTHER, SELFPAY ==
[2023-06-08 14:53] LABS: Prothrombin Time Whole Bld POC 60.3 sec (11.1-13.5)
--- NOTE | 2023-06-08 15:03 | MHC.OFFVISCO ---
Intake Intake Visit Reasons: Anticoagulation Allergies hydrocodone [From VICODIN] Allergy (Unknown, Verified 06/08/23 14:47) GI UPSET Medication List - Last Reconciled 06/08/23 by Grace Mccloud RN acetaminophen ER (Tylenol Arthritis Pain) 1,300 mg PO Q8H PRN albuterol sulfate 90 mcg/actuation (ProAir HFA) 2 puffs inhalation Q4-6H PRN amoxicillin 2,000 mg PO ONCE PRN atorvastatin 20 mg PO DAILY buprenorphine-naloxone 8-2 mg (Suboxone) 1 film sublingual BID cholecalciferol (vitamin D3) 50 mcg PO DAILY ferrous sulfate (Feosol) 325 mg PO Q OTHER DAY inhalational spacing device ([employer] [facility] spacer) As directed loratadine 10 mg PO DAILY ondansetron 8 mg PO Q12H PRN ondansetron HCl 4 mg PO Q8H PRN polyethylene glycol 3350 (Miralax) 17 grams PO DAILY sennosides (senna) 8.6 mg PO BEDTIME PRN trazodone 50 mg PO BEDTIME venlafaxine ER 37.5 mg PO DAILY warfarin 7.5 mg See Protocol PO 2XW warfarin 10 mg See Protocol PO 5XW Nursing Note WALK IN CAME IN ON WRONG DAY/ 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 [place] INR ??5.0 out of therapeutic range Medications and supplements reviewed Patient status: STARTE VENLAFAXINE ER END OF APRIL AND DID NOT TELL [facility]- IT CAN RAISE THE INR Medications or supplements: ALSO STARTED ATORVASTATIN 20MG DAILY 1 MONTH AGO Diet: GOOD - MAY NOT HAVE HAD USUAL GREENS Denies any signs and symptoms of bleeding or clotting or unusual bruising Bleeding, bruising, clotting discussed - GO TO ER WITH ANY STROKE SYMPTOMS OR BLEEDING OR BRUSING Nutritional guidance given: GREENS X 3 DAYS / WEEK Dose: HOLD AND DECREASE DOSE 10MG X 1 DAYS/ 7.5MG X 6 DAYS F/U INR Date: UMABLE TO COME RECOMMENDED DAY THIS WEEK , PT REQUESTED Tuesday06/14/23 ?? Patient verbalizing understanding of instructions given. CALL PLACED TO PCP SPOKE WITH NURSE MEDINA TO CONVEY MSG TO PCP Anti-Coag Initial Assessment Social Hx Patient Tobacco Use Status: Former Tobacco user Tobacco use type: Cigarette alcohol intake: current Alcohol intake frequency: a few times a month Coding Level of Care Code Est Patient Level 1 Diagnoses Current use of anticoagulant therapy Z79.01 Results AMB INR Fingerstick AMB INR Fingerstick 5.0 Last Edit by Grace Mccloud RN on 06/08/23 14:53 md notified Grace Mccloud 06/08/23 14:53 unable to stay for lab Assessment & Plan Assessment & Plan (1) Current use of anticoagulant therapy: Code(s): 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
== END 2023-06-08 15:11 | disposition home or self-care (01) ==
LOC: HO.ACS 14:47
PROVIDERS: PCP Registered Nurse; Visit Provider Internal Medicine
DX: Z79.01 Long term (current) use of anticoagulants (principal)

== ENCOUNTER → 2023-06-08 14:47 | Outpatient (BNVA) | payer OTHER, SELFPAY | PROVIDERS: PCP Registered Nurse; Visit Provider Internal Medicine | DX: Z95.2 Presence of prosthetic heart valve (principal); Z79.01 Long term (current) use of anticoagulants; Z51.81 Encounter for therapeutic drug level monitoring | CPT/HCPCS: 85610; 99211 ==

== ENCOUNTER 2023-06-14 15:39 | Outpatient (AMB) | payer OTHER, SELFPAY ==
[2023-06-14 15:49] LABS: Prothrombin Time Whole Bld POC 33.5 sec (11.1-13.5); ~PT, ~INR - Anti Coag Clinic 2.8 (0.9-1.1)
--- NOTE | 2023-06-14 15:56 | MHC.OFFVISCO ---
Intake Intake Visit Reasons: Anticoagulation Allergies hydrocodone [From VICODIN] Allergy (Unknown, Verified 06/14/23 15:42) GI UPSET Medication List - Last Reconciled 06/14/23 by Kayla Mena RN acetaminophen ER (Tylenol Arthritis Pain) 1,300 mg PO Q8H PRN albuterol sulfate 90 mcg/actuation (ProAir HFA) 2 puffs inhalation Q4-6H PRN amoxicillin 2,000 mg PO ONCE PRN atorvastatin 20 mg PO DAILY buprenorphine-naloxone 8-2 mg (Suboxone) 1 film sublingual BID cholecalciferol (vitamin D3) 50 mcg PO DAILY ferrous sulfate (Feosol) 325 mg PO Q OTHER DAY inhalational spacing device ([employer] [facility] spacer) As directed loratadine 10 mg PO DAILY ondansetron 8 mg PO Q12H PRN ondansetron HCl 4 mg PO Q8H PRN polyethylene glycol 3350 (Miralax) 17 grams PO DAILY sennosides (senna) 8.6 mg PO BEDTIME PRN trazodone 50 mg PO BEDTIME venlafaxine ER 37.5 mg PO DAILY warfarin 7.5 mg See Protocol PO 2XW warfarin 10 mg See Protocol PO 5XW Nursing Note Amb to [facility] feeling tired I just woke up (has autistic children with sleeping issues) Medications and supplements reviewed, sts he followed dosing adjustments made last week but missed his dose on Tuesday sts he takes the venlafaxine for anxiety as needed, sts he has been on it over a year, sts took a dose last week, none since No other changes in health, diet, medications, or supplements Denies any unusual signs and symptoms of bruising, bleeding Denies any new Chest pain, SOB, or clotting INR: 2.8 in therapeutic range (2.5-3.5) Nutritional guidance given: balance greens and reds in diet, try to be consistent Dose: due to missed dose on Sunday 06/10 will continue usual dosing;10mg x 2 days and 7.5mg x 5 days F/U INR: 10 days or 06/23 and will make dosing changes if needed Patient verbalizes understanding of instructions given with accurate read back/ teach back of dosing Anti-Coag Initial Assessment Social Hx Patient Tobacco Use Status: Former Tobacco user Tobacco use type: Cigarette alcohol intake: current Alcohol intake frequency: a few times a month Coding Level of Care Code Est Patient Level 1 Diagnoses Current use of anticoagulant therapy Z79.01 Time Spent (min) 15 Assessment & Plan Assessment & Plan (1) Current use of anticoagulant therapy: Code(s): 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
== END 2023-06-14 16:05 | disposition home or self-care (01) ==
LOC: HO.ACS 15:39
PROVIDERS: PCP Registered Nurse; Visit Provider Internal Medicine
DX: Z79.01 Long term (current) use of anticoagulants (principal)

== ENCOUNTER → 2023-06-14 15:39 | Outpatient (BNVA) | payer OTHER, SELFPAY | PROVIDERS: PCP Registered Nurse; Visit Provider Internal Medicine | DX: Z95.2 Presence of prosthetic heart valve (principal); Z79.01 Long term (current) use of anticoagulants; Z51.81 Encounter for therapeutic drug level monitoring | CPT/HCPCS: 85610; 99211 ==

== ENCOUNTER 2023-06-16 11:58 | Emergency (ER) | payer OTHER, SELFPAY ==
[2023-06-16] VITALS (7 sets, daily range): BP systolic 117–144; BP diastolic 52–76; PULSE 65–97; RESP 11–18; TEMP 36.5–36.7; O2SAT 97–99; BMI 28.0
--- NOTE | ~2023-06-16 | CT_ITS ---
EXAMINATION: CT ABDOMEN AND PELVIS WITH CONTRAST CLINICAL INFORMATION: Abdominal pain COMPARISON: CT of the abdomen and pelvis 03/20/2017 TECHNIQUE: Multidetector volumetric images were obtained from the superior aspect of the liver through the pubic symphysis following administration 85 mL of Omnipaque 350 intravenous contrast. Sagittal and coronal reformatted images were obtained on the technologist's workstation. Oral contrast: No This CT examination was performed using dose optimization techniques as appropriate, variously including the following: *Automated exposure control *Adjustment of mA and/or kV according to patient size (this includes techniques or standardized protocols for targeted exams where dose is matched to indication/reason for exam; i.e. extremities or head) *Use of iterative reconstruction technique DLP: 926 mGy-cm FINDINGS: LUNG BASES: The visualized lung bases are unremarkable. Status post median sternotomy LIVER, GALLBLADDER, AND BILIARY TREE: The liver is normal in size, shape, and attenuation. No focal hepatic lesion or biliary ductal dilatation is present. The gallbladder is unremarkable with no evidence of radiopaque gallstones, gallbladder wall thickening, or obvious pericholecystic inflammatory changes. PANCREAS: Unremarkable. SPLEEN: Unremarkable. Several small splenules at the splenic hilum ADRENAL GLANDS: Unremarkable. KIDNEYS AND URETERS: The kidneys are normal in size, shape, and attenuation. No hydronephrosis, hydroureter, or calculi seen. No perinephric stranding. 4 cm simple cyst upper pole right kidney. This is unchanged since 03/20/2017 CT abdomen pelvis exam No follow-up imaging is recommended for simple renal cyst. BLADDER: Unremarkable. GASTROINTESTINAL TRACT: No acute abnormality. There is no bowel wall thickening /edema. There is no bowel obstruction. There is a moderate to large volume of stool in the colon. The appendix is nonvisualized . The small bowel loops are unremarkable. The stomach is normal. There is no hiatal hernia. ABDOMINAL WALL: No significant hernia is appreciated. LYMPH NODES: Normal. VASCULAR: Unremarkable. PELVIC VISCERA: Unremarkable. OSSEOUS STRUCTURES: Unremarkable. CT/CT abdomen pelvis w IV con IMPRESSION: No significant abnormality. Fleischner guidelines were followed.
--- NOTE | 2023-06-16 12:13 | ED_ITS ---
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 Patient states that today he began to have epigastric pain, nausea, and vomiting. Patient denies any dizziness, lightheadedness, vomiting, fever, chills, blurry vision, double vision, loss of vision, chest pain, difficulty breathing, shortness of breath, back pain, night sweats, pain with urination, increased urinary frequency, increased urinary urgency, blood in his urine or stool, syncope or a near syncopal episode, recent trauma or falls, bowel incontinence, bladder incontinence, bowel retention, bladder retention, or any other complaints at this time. Onset (ago): hour(s) Location: abdomen Radiation: non-radiation Severity: mild Severity scale (1-10): 3 Quality: aching Pain Consistency: constant Relieving factors: none Exacerbating factors: none Associated symptoms: nausea/vomiting Treatments prior to arrival: none Related Data Home Medications Medication Instructions Recorded Confirmed trazodone 50 mg tablet 50 mg PO BEDTIME 02/11/21 06/14/23 acetaminophen 650 mg 1,300 mg PO Q8H PRN Pain 09/24/22 06/14/23 tablet,extended release (Tylenol Arthritis Pain) albuterol sulfate 90 mcg/actuation 2 puff inhalation Q4-6H PRN 09/24/22 06/14/23 aerosol inhaler (ProAir HFA) Wheezing buprenorphine 8 mg-naloxone 2 mg 1 film sublingual BID 09/24/22 06/14/23 sublingual film (Suboxone) cholecalciferol (vitamin D3) 50 50 mcg PO DAILY 09/24/22 06/14/23 mcg (2,000 unit) capsule ferrous sulfate 325 mg (65 mg 325 mg PO Q OTHER DAY 09/24/22 06/14/23 iron) tablet (Feosol) loratadine 10 mg tablet 10 mg PO DAILY 09/24/22 06/14/23 ondansetron 4 mg disintegrating 8 mg PO Q12H PRN nausea and 09/24/22 06/14/23 tablet vomiting inhalational spacing device #1 ea 09/29/22 06/14/23 (Raghav Ashraf [facility] spacer) ondansetron HCl 4 mg tablet 4 mg PO Q8H PRN nausea/vomiting 09/29/22 06/14/23 sennosides 8.6 mg tablet (senna) 8.6 mg PO BEDTIME PRN Constipation 11/03/22 06/14/23 amoxicillin 500 mg capsule 2,000 mg PO ONCE PRN 02/16/23 06/14/23 polyethylene glycol 3350 17 17 g PO DAILY 04/08/23 06/14/23 gram/dose oral powder (Miralax) warfarin 5 mg tablet 10 mg PO 5XW 04/21/23 06/14/23 warfarin 7.5 mg tablet 7.5 mg PO 2XW 04/21/23 06/14/23 atorvastatin 20 mg tablet 20 mg PO DAILY 06/08/23 06/14/23 venlafaxine 37.5 mg 37.5 mg PO DAILY 06/08/23 06/14/23 capsule,extended release 24 hr Previous Rx's Medication Instructions Recorded omeprazole 40 mg capsule,delayed 40 mg PO DAILY #30 caps 06/16/23 release Allergies Allergy/AdvReac Type Severity Reaction Status Date / Time hydrocodone [From VICODIN] Allergy Unknown GI UPSET Verified 06/16/23 12:30 Review of Systems Constitutional: Constitutional: Reports no additional constitutional complaints, Denies chills, Denies fever(s) and Denies night sweats Eyes: Eyes: Reports no additional eye complaints, Denies blurry vision, Denies change in vision, Denies diplopia, Denies eye discharge, Denies loss of vision and Denies eye pain ENT: Denies dizziness Cardiovascular: Cardiovascular: Reports no additional cardiovascular complaints, Denies chest pain, Denies lightheadedness, Denies Loss of Consciousness and Denies dyspnea Respiratory: Respiratory: Reports no additional respiratory complaints and Denies dyspnea Gastrointestinal: Gastrointestinal: Reports no additional gastrointestinal complaints, Reports abdominal pain, Denies melena, Denies hematochezia, Denies change in bowel habits, Denies change in stool character, Reports nausea and Reports vomiting Genitourinary: Genitourinary: Reports no additional male genitourinary complaints, Denies hematuria, Denies oliguria, Denies difficulty urinating, Denies dysuria, Denies urinary frequency, Denies urinary hesitancy, Denies urinary incontinence and Denies urinary urgency Musculoskeletal: Musculoskeletal: Reports no additional musculoskeletal complaints, Denies numbness and Denies tingling Neurologic: Denies dizziness, Denies loss of vision, Denies numbness and Denies tingling Psychiatric: Psychiatric: Reports no additional psychiatric complaints Endocrine: Endocrine: Reports no additional endocrine complaints Hematologic/Lymphatic: Hematologic/Lymphatic: Reports no additional hematologic/lymphatic complaints Allergic/Immunologic: Allergic/Immunologic: Reports no additional allergic/immunologic complaints [facility], LAT[facility] Past Medical History Attestation statement: The following information was validated with the patient. Source: old records reviewed and nursing notes reviewed Medical History Anticoagulant causing adverse effect in therapeutic use Asthma Current use of anticoagulant therapy CVA (cerebrovascular accident due to intracerebral hemorrhage) Endocarditis of prosthetic mitral valve Fracture of proximal end of humerus Myalgia Opioid use disorder SIRS (systemic inflammatory response syndrome) Surgical History Heart valve replaced History of heart valve replacement with mechanical valve Presence of other heart-valve replacement Family History Family History Father Diabetes Mother H/O thyroid disease Social History Social History Household Members: Family Housing: Apartment Do you presently have visiting nurse or other home services: No Alcohol intake: current Alcohol intake frequency: does not drink Alcohol type: beer Patient Tobacco Use Status: Former Tobacco user Tobacco use type: Cigarette Smoked in Last 30 Days: No Use of substances other than those prescribed or required for medical reasons: No Substance Use Type: Other Advance Directives: No service: No Current occupational status: unemployed 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 Physical Exam ED Vital Signs: Vital Signs - 24 hr 06/16/23 12:26 06/16/23 13:57 06/16/23 14:23 Temperature 97.7 F 97.7 F Pulse Rate 70 65 Respiratory Rate 11 L 12 18 Blood Pressure 144/76 H 117/52 L Pulse Oximetry 97 98 Oxygen Delivery Method Room Air 06/16/23 15:34 Temperature 98.0 F Pulse Rate 67 Respiratory Rate 12 Blood Pressure 124/67 Pulse Oximetry 98 Oxygen Delivery Method Room Air BMI result Body Mass Index 28.0 Const General: cooperative, no acute distress, alert and awake Nutritional Appearance: well nourished Orientation/consciousness: patient oriented x3 Limitations: no limitations HENMT Head: Yes normal to inspection and Yes atraumatic Ears: hearing grossly normal bilaterally and external ears normal General nose exam: Normal external nose present, no nasal discharge noted and no epistaxis Face and sinus: Yes normal facial exam, No abrasion and No laceration Mouth: Normal oral and palatal mucosa present, no drooling and no muffled voice Eyes General: appearance normal, both eyes and all related structures Periorbital: periorbital findings normal Eyelids: Yes eyelids normal Conjunctivae: conjunctivae normal Pupils: Equal, round and reactive pupils present EOM: EOMs intact bilaterally Neck Neck: Yes normal visual inspection, Yes full ROM and Yes no lymphadenopathy Chest Chest palpation & inspection: normal inspection of the chest Resp Effort & Inspection: normal respiratory effort and able to speak in complete sentences GI Inspection: Yes normal to inspection Palpation (GI): Soft to palpation, not firm, no guarding and not rigid Neuro General: patient oriented x3 and moves all extremities Cranial nerves: Yes Equal, round and reactive pupils present Cognition (Neuro): normal cognition Motor exam (neuro): 5/5 motor strength present throughout Sensory Exam: Normal double simultaneous stimulation for sensation Coordination: [id number] test normal Extrem General: Yes normal to inspection, Yes full ROM and Yes capillary refill normal Psych Appearance: grossly normal Mental Status: mental status grossly normal Affect: normal affect Attitude: cooperative Thought process: Normal thought process present Thought content: Normal thought content present Insight: Good insight present (Psych) Medications Administered Discontinued Medications Generic Name Dose Route Start Last Admin Trade Name Freq PRN Reason Stop Dose Admin Sodium Chloride 1,000 mls @ 999 mls/hr 06/16/23 12:15 06/16/23 13:48 Ns IV 06/16/23 13:15 999 mls/hr .Q1H1M KERI Administration Vancomycin HCl 1,000 mg/ 270 mls @ 270 mls/hr 06/16/23 12:17 06/16/23 14:24 Sodium Chloride IV 06/16/23 13:16 Not Given ONCE ONE Ceftriaxone Sodium 1 gm/ 50 mls @ 100 mls/hr 06/16/23 12:17 08/10/23 14:23 Sodium Chloride IV 06/16/23 12:46 100 mls/hr ONCE ONE Administration Vancomycin HCl 2,000 mg in 500 mls @ 250 mls/hr 06/16/23 12:34 06/16/23 15:47 Vancomycin/Ns IV 06/16/23 14:33 250 mls/hr ONCE ONE Administration Iohexol 100 ml 06/16/23 14:46 06/16/23 14:46 Iohexol 350 Mg/Ml 100 Ml Infus..Btl IV 06/16/23 14:47 85 ml ONCE ONE Administration Morphine Sulfate 4 mg 06/16/23 12:21 06/16/23 13:47 Morphine Sulfate 4 Mg/Ml Cartridge IVPUSH 06/16/23 12:22 4 mg ONCE ONE Administration Protocol Ondansetron HCl 4 mg 06/16/23 12:18 06/16/23 13:47 Ondansetron Hcl 4 Mg/2 Ml Vial IVPUSH 06/16/23 12:19 4 mg ONCE ONE Administration Pantoprazole Sodium 40 mg 06/16/23 12:21 06/16/23 13:48 Pantoprazole Sodium 40 Mg/10 Ml Vial IVPUSH 06/16/23 12:22 40 mg ONCE ONE Administration Medical Decision Making Medical Decision Making MDM Narrative: Patient is a 37 year old assigned male at with a history of asthma, 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 Patient's physical exam was unremarkable. Patient's blood work was unremarkable. Patient's EKG was unremarkable. Patient's abdomen/pelvis CT showed no acute process. I explained my physical exam findings as well as all test results to the patient. I answered all questions asked by the patient. Patient received IV fluids and due to the high risk of infection - empiric antibiotics which he stated helped his symptoms significantly. I stressed the importance of the patient taking his medication as prescribed. I stressed the importance of the patient following up with his primary care provider and a GI provider. I stressed the importance of the patient returning to the emergency department immediately if his symptoms were to worsen or if he were to develop any dizziness, shortness of breath, difficulty breathing, chest pain, blurry vision, loss of vision, nausea, vomiting, abdominal pain, fever, chills, back pain, or any other complaints. Patient verbalized agreement and understanding with this treatment plan and discharge. Differential Diagnosis Differential Diagnoses: The differential diagnosis associated with the presentation includes Gastritis Gastroenteritis Viral illness GERD Abdominal pain Epigastric pain Admission/Observation Consideration of admission/observation: Escalation of care including admission/observation considered Patient would have been admitted to the hospital had his work up had any findings where hospital admission was appropriate and his clinical presentation warranted hospital admission. Lab Data MDM Lab Attestation statement: I reviewed the patient's lab results. My interpretation of these studies and their corresponding values is that they are grossly normal. 06/16/23 13:31 06/16/23 13:31 Labs: Lab Results 06/16/23 06/16/23 06/16/23 Range/Units 13:31 13:31 13:31 WBC (4.8-10.8) X10*3/uL RBC (4.60-5.80) X10*6/uL Hgb (14.0-18.0) g/dl Hct (42.0-52.0) % MCV (80.0-98.0) fL MCH (27.0-33.0) pg MCHC (31.0-36.0) g/dl RDW (11.0-16.0) % Plt Count (160-400) X10*3/uL MPV (9.4-12.4) fL Immature Gran % (Auto) (0.0-0.4) % Neut % (Auto) (45-73) % Lymph % (Auto) (20-40) % [place] % (Auto) (2-11) % Eos % (Auto) (0-4) % Baso % (Auto) (0-2) % Lymph # (Auto) (1.2-4.9) X10*3/uL [place] # (Auto) (0.1-1.2) X10*3/uL Eos # (Auto) (0.0-0.4) X10*3/uL Baso # (Auto) (0.0-0.2) X10*3/uL Abs Immat Gran (auto) (0.00-0.03) X10*3/uL Absolute Neuts (auto) (2.0-8.3) x10*3/uL Absolute Nucleated RBC (0.0-0.012) X10*3/uL Nucleated RBC % (auto) (0.0-0.2) /100WBC ESR 2 (0-15) MM/HR PT (11.1-13.3) SEC INR (0.9-1.1) APTT (26.0-36.4) SEC Sodium 141 (135-145) mmol/L Potassium 4.1 D (3.3-5.1) mmol/L Chloride 105 (96-108) mmol/L Carbon Dioxide 28 (22-29) mmol/L Anion Gap 12 (12-20) BUN 12 (9-16) mg/dL Creatinine 0.97 (0.5-1.4) mg/dL Estim Creat Clear Calc 141.9 Estimated GFR > 60 Random Glucose 105 (60-115) mg/dL Lactic Acid 1.2 (0.5-2.0) mmol/L Calcium 9.9 D (8.4-10.2) mg/dL Magnesium 2.1 (1.6-2.6) mg/dL Total Bilirubin 0.3 (0.0-1.0) mg/dL AST 32 (5-37) U/L ALT 63 H (0-40) U/L Alkaline Phosphatase 121 H (39-117) U/L Troponin I High Sens (<3.5-35.0) ng/L C-Reactive Protein 0.34 (< or = 0.50) mg/dL Total Protein 8.3 H (6.5-8.0) g/dL Albumin 4.6 (3.5-5.0) g/dL Lipase (8-78) U/L COVID-19 ([facility]) (Negative) COVID-19 Clin Com 06/16/23 06/16/23 06/16/23 Range/Units 13:31 13:31 13:31 WBC 7.3 (4.8-10.8) X10*3/uL RBC 5.43 (4.60-5.80) X10*6/uL Hgb 14.2 (14.0-18.0) g/dl Hct 44.3 (42.0-52.0) % MCV 81.6 (80.0-98.0) fL MCH 26.2 L (27.0-33.0) pg MCHC 32.1 (31.0-36.0) g/dl RDW 13.3 (11.0-16.0) % Plt Count 271 D (160-400) X10*3/uL MPV 10.6 (9.4-12.4) fL Immature Gran % (Auto) 0.4 (0.0-0.4) % Neut % (Auto) 81.0 H (45-73) % Lymph % (Auto) 11.9 L (20-40) % [place] % (Auto) 6.0 (2-11) % Eos % (Auto) 0.4 (0-4) % Baso % (Auto) 0.3 (0-2) % Lymph # (Auto) 0.9 L (1.2-4.9) X10*3/uL [place] # (Auto) 0.4 (0.1-1.2) X10*3/uL Eos # (Auto) 0.0 (0.0-0.4) X10*3/uL Baso # (Auto) 0.0 (0.0-0.2) X10*3/uL Abs Immat Gran (auto) 0.03 (0.00-0.03) X10*3/uL Absolute Neuts (auto) 6.0 (2.0-8.3) x10*3/uL Absolute Nucleated RBC 0.000 (0.0-0.012) X10*3/uL Nucleated RBC % (auto) 0.0 (0.0-0.2) /100WBC ESR (0-15) MM/HR PT 43.5 H (11.1-13.3) SEC INR 3.6 H (0.9-1.1) APTT 52.2 H (26.0-36.4) SEC Sodium (135-145) mmol/L Potassium (3.3-5.1) mmol/L Chloride (96-108) mmol/L Carbon Dioxide (22-29) mmol/L Anion Gap (12-20) BUN (9-16) mg/dL Creatinine (0.5-1.4) mg/dL Estim Creat Clear Calc Estimated GFR Random Glucose (60-115) mg/dL Lactic Acid (0.5-2.0) mmol/L Calcium (8.4-10.2) mg/dL Magnesium (1.6-2.6) mg/dL Total Bilirubin (0.0-1.0) mg/dL AST (5-37) U/L ALT (0-40) U/L Alkaline Phosphatase (39-117) U/L Troponin I High Sens < 2.7 (<3.5-35.0) ng/L C-Reactive Protein (< or = 0.50) mg/dL Total Protein (6.5-8.0) g/dL Albumin (3.5-5.0) g/dL Lipase (8-78) U/L COVID-19 ([facility]) (Negative) COVID-19 Clin Com 06/16/23 06/16/23 Range/Units 13:31 14:16 WBC (4.8-10.8) X10*3/uL RBC (4.60-5.80) X10*6/uL Hgb (14.0-18.0) g/dl Hct (42.0-52.0) % MCV (80.0-98.0) fL MCH (27.0-33.0) pg MCHC (31.0-36.0) g/dl RDW (11.0-16.0) % Plt Count (160-400) X10*3/uL MPV (9.4-12.4) fL Immature Gran % (Auto) (0.0-0.4) % Neut % (Auto) (45-73) % Lymph % (Auto) (20-40) % [place] % (Auto) (2-11) % Eos % (Auto) (0-4) % Baso % (Auto) (0-2) % Lymph # (Auto) (1.2-4.9) X10*3/uL [place] # (Auto) (0.1-1.2) X10*3/uL Eos # (Auto) (0.0-0.4) X10*3/uL Baso # (Auto) (0.0-0.2) X10*3/uL Abs Immat Gran (auto) (0.00-0.03) X10*3/uL Absolute Neuts (auto) (2.0-8.3) x10*3/uL Absolute Nucleated RBC (0.0-0.012) X10*3/uL Nucleated RBC % (auto) (0.0-0.2) /100WBC ESR (0-15) MM/HR PT (11.1-13.3) SEC INR (0.9-1.1) APTT (26.0-36.4) SEC Sodium (135-145) mmol/L Potassium (3.3-5.1) mmol/L Chloride (96-108) mmol/L Carbon Dioxide (22-29) mmol/L Anion Gap (12-20) BUN (9-16) mg/dL Creatinine (0.5-1.4) mg/dL Estim Creat Clear Calc Estimated GFR Random Glucose (60-115) mg/dL Lactic Acid (0.5-2.0) mmol/L Calcium (8.4-10.2) mg/dL Magnesium (1.6-2.6) mg/dL Total Bilirubin (0.0-1.0) mg/dL AST (5-37) U/L ALT (0-40) U/L Alkaline Phosphatase (39-117) U/L Troponin I High Sens (<3.5-35.0) ng/L C-Reactive Protein (< or = 0.50) mg/dL Total Protein (6.5-8.0) g/dL Albumin (3.5-5.0) g/dL Lipase 14 (8-78) U/L COVID-19 ([facility]) Negative (Negative) COVID-19 Clin Com See Note Independent Interpretation I performed an independent interpretation of an: EKG and CT Scan Interpretation: My interpretation is in agreement with the radiologist's impression of this imaging study. EXAMINATION: CT ABDOMEN AND PELVIS WITH CONTRAST? CLINICAL INFORMATION: Abdominal pain? COMPARISON: CT of the abdomen and pelvis 03/20/2017 TECHNIQUE: Multidetector volumetric images were obtained from the superior aspect of the liver through the pubic symphysis following administration 85 mL of Omnipaque 350 intravenous contrast. Sagittal and coronal reformatted images were obtained on the technologist's workstation.? Oral contrast: No This CT examination was performed using dose optimization techniques as appropriate, variously including the following: *Automated exposure control *Adjustment of mA and/or kV according to patient size (this includes techniques or standardized protocols for targeted exams where dose is matched to indication/reason for exam; i.e. extremities or head) *Use of iterative reconstruction technique DLP: 926 mGy-cm FINDINGS: LUNG BASES: The visualized lung bases are unremarkable. Status post median sternotomy LIVER, GALLBLADDER, AND BILIARY TREE: The liver is normal in size, shape, and attenuation. No focal hepatic lesion or biliary ductal dilatation is present. The gallbladder is unremarkable with no evidence of radiopaque gallstones, gallbladder wall thickening, or obvious pericholecystic inflammatory changes.? PANCREAS: Unremarkable.? SPLEEN: Unremarkable. Several small splenules at the splenic hilum ADRENAL GLANDS: Unremarkable.? KIDNEYS AND URETERS: The kidneys are normal in size, shape, and attenuation. No hydronephrosis, hydroureter, or calculi seen. No perinephric stranding. 4 cm simple cyst upper pole right kidney. This is unchanged since 03/20/2017 CT abdomen pelvis exam No follow-up imaging is recommended for simple renal cyst. BLADDER: Unremarkable.? GASTROINTESTINAL TRACT: No acute abnormality. There is no bowel wall thickening /edema. There is no bowel obstruction. There is a moderate to large volume of stool in the colon. The appendix is nonvisualized . The small bowel loops are unremarkable. The stomach is normal. There is no hiatal hernia.? ABDOMINAL WALL: No significant hernia is appreciated.? LYMPH NODES: Normal. VASCULAR: Unremarkable. PELVIC VISCERA: Unremarkable.? OSSEOUS STRUCTURES: Unremarkable.? CT/CT abdomen pelvis w IV con IMPRESSION: No significant abnormality.? ? Fleischner guidelines were followed. Dictated By: Lorenzo Rudolph MD Signed By: Electronically signed by Lorenzo Rudolph MD 06/16/23 1516 ----- Vent. Rate: 066 BPM ? ? Atrial Rate: 066 BPM P-R Int: 216 ms? QRS Dur: 100 ms QT Int: 398 ms ? ? ? P-R-T Axes: 045 058 009 degrees QTc Int: 417 ms ? Sinus rhythm with 1st degree A-V block Incomplete right bundle branch block Cannot rule out Inferior infarct (cited on or before 16-JUN-2023) Abnormal ECG When compared with ECG of 21-AUG-2022 11:40, Non-specific change in ST segment in Inferior leads ST no longer depressed in Anterior leads Nonspecific T wave abnormality no longer evident in Anterior leads QT has shortened DD/ 1256 Radiology Impression Discussion of test interpretation with radiology: I have reviewed the radiologist's reading. External Record Review External record reviewed: Other (patient's previous ED records) Prescription Management I considered prescription management with: Other (patient prescribed a PPI) Chronic Conditions Patient?s care impacted by: Other (mechanical heart valve) Discharge Plan Discharge Clinical Impression: Acute epigastric pain Patient Disposition: Home, Self-Care Instructions: Acute Abdominal Pain (DC), Epigastric Pain (ED) Additional Instructions: Follow up with your primary care provider and a GI provider. Return to the emergency department immediately if your symptoms worsen or if you develop any dizziness, shortness of breath, difficulty breathing, chest pain, blurry vision, loss of vision, nausea, vomiting, abdominal pain, fever, chills, back pain, or any other complaints. Prescriptions: New omeprazole 40 mg capsule,delayed release(DR/EC) 40 mg PO DAILY Qty: 30 0RF No Action warfarin 5 mg tablet 10 mg PO 5XW Hold Instructions: Doctor's Order Protocol: Dose Management Condition: Tuesday (Week One) Dose/Route: 7.5 mg Instruction: 1 x 7.5 mg tablet Condition: Tuesday Dose/Route: 10 mg Instruction: 2 x 5 mg tablets Condition: Tuesday Dose/Route: 7.5 mg Instruction: 1 x 7.5 mg tablet Condition: Tuesday Dose/Route: 7.5 mg Instruction: 1 x 7.5 mg tablet Condition: Dose/Route: 10 mg Instruction: 2 x 5 mg tablets Condition: Tuesday Dose/Route: 7.5 mg Instruction: 1 x 7.5 mg tablet Condition: Tuesday Dose/Route: 7.5 mg Instruction: 1 x 7.5 mg tablet Condition: Tuesday (Week Two) Dose/Route: 7.5 mg Instruction: 1 x 7.5 mg tablet Condition: Tuesday Dose/Route: 10 mg Instruction: 2 x 5 mg tablets Condition: Tuesday Dose/Route: 7.5 mg Instruction: 1 x 7.5 mg tablet Condition: Tuesday Dose/Route: 7.5 mg Instruction: 1 x 7.5 mg tablet Condition: Dose/Route: 10 mg Instruction: 2 x 5 mg tablets Condition: Tuesday Dose/Route: 7.5 mg Instruction: 1 x 7.5 mg tablet Condition: Tuesday Dose/Route: 7.5 mg Instruction: 1 x 7.5 mg tablet Protocol Text: Adjustment Start Date: Tuesday06/14/23 INR Value: 2.8 INR Date: 06/14/23 Recheck Date: 06/24/23 Additional Instructions: INR is now in range because you also missed a dose Tuesday continue with usual dosing follow dosing sheet balance greens and reds in diet and try to be consistent week to week warfarin 7.5 mg tablet 7.5 mg PO 2XW Hold Instructions: Doctor's Order Protocol: Dose Management Condition: Tuesday (Week One) Dose/Route: 7.5 mg Instruction: 1 x 7.5 mg tablet Condition: Tuesday Dose/Route: 10 mg Instruction: 2 x 5 mg tablets Condition: Tuesday Dose/Route: 7.5 mg Instruction: 1 x 7.5 mg tablet Condition: Tuesday Dose/Route: 7.5 mg Instruction: 1 x 7.5 mg tablet Condition: Dose/Route: 10 mg Instruction: 2 x 5 mg tablets Condition: Tuesday Dose/Route: 7.5 mg Instruction: 1 x 7.5 mg tablet Condition: Tuesday Dose/Route: 7.5 mg Instruction: 1 x 7.5 mg tablet Condition: Tuesday (Week Two) Dose/Route: 7.5 mg Instruction: 1 x 7.5 mg tablet Condition: Tuesday Dose/Route: 10 mg Instruction: 2 x 5 mg tablets Condition: Tuesday Dose/Route: 7.5 mg Instruction: 1 x 7.5 mg tablet Condition: Tuesday Dose/Route: 7.5 mg Instruction: 1 x 7.5 mg tablet Condition: Dose/Route: 10 mg Instruction: 2 x 5 mg tablets Condition: Tuesday Dose/Route: 7.5 mg Instruction: 1 x 7.5 mg tablet Condition: Tuesday Dose/Route: 7.5 mg Instruction: 1 x 7.5 mg tablet Protocol Text: Adjustment Start Date: Tuesday06/14/23 INR Value: 2.8 INR Date: 06/14/23 Recheck Date: 06/24/23 Additional Instructions: INR is now in range because you also missed a dose Tuesday continue with usual dosing follow dosing sheet balance greens and reds in diet and try to be consistent week to week sennosides [senna] 8.6 mg Tablet 8.6 mg PO BEDTIME PRN (Reason: Constipation) trazodone 50 mg tablet 50 mg PO BEDTIME ferrous sulfate [Feosol] 325 mg (65 mg iron) tablet 325 mg PO Q OTHER DAY loratadine 10 mg tablet 10 mg PO DAILY ondansetron 4 mg tablet,disintegrating 8 mg PO Q12H PRN (Reason: nausea and vomiting) albuterol sulfate [ProAir HFA] 90 mcg/actuation HFA aerosol inhaler 2 puff inhalation Q4-6H PRN (Reason: Wheezing) buprenorphine-naloxone [Suboxone] 8-2 mg film 1 film sublingual BID acetaminophen [Tylenol Arthritis Pain] 650 mg tablet extended release 1,300 mg PO Q8H PRN (Reason: Pain) cholecalciferol (vitamin D3) 50 mcg (2,000 unit) capsule 50 mcg PO DAILY (DME) Raghav Ashraf [facility] Spacer See Rx Instructions .ROUTE .MEDSUPPLY Qty: 1 Rx Instructions: As directed ondansetron HCl 4 mg tablet 4 mg PO Q8H PRN (Reason: nausea/vomiting) amoxicillin 500 mg capsule 2,000 mg PO ONCE PRN polyethylene glycol 3350 [Miralax] 17 gram/dose powder 17 g PO DAILY atorvastatin 20 mg tablet 20 mg PO DAILY venlafaxine 37.5 mg capsule,extended release 24hr 37.5 mg PO DAILY Referrals: [facility] [facility] [Provider Group] (Call to establish and follow up with a 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
--- NOTE | 2023-06-16 12:14 | ECG_ITS ---
Test Reason : MECHANICAL VALVE Blood Pressure : / mmHG Vent. Rate : 066 BPM Atrial Rate : 066 BPM P-R Int : 216 ms QRS Dur : 100 ms QT Int : 398 ms P-R-T Axes : 045 058 009 degrees QTc Int : 417 ms Sinus rhythm with 1st degree A-V block Incomplete right bundle branch block Cannot rule out Inferior infarct (cited on or before 16-JUN-2023) Abnormal ECG When compared with ECG of 21-AUG-2022 11:40, Non-specific change in ST segment in Inferior leads ST no longer depressed in Anterior leads Nonspecific T wave abnormality no longer evident in Anterior leads QT has shortened Referred By: Nimo Celis Electronically Signed By:Dell Samuels
[2023-06-16 13:36] LABS: MANUAL DIFF FLAG NO
[2023-06-16 13:43] LABS: Basophils Percent Auto 0.3 % (0-2); Eosinophils Percent Auto 0.4 % (0-4); Hematocrit 44.3 % (42.0-52.0); Hemoglobin 14.2 g/dl (14.0-18.0); Imm Gran Abs Auto 0.03 X10*3/uL (0.00-0.03); Imm Gran Pct Auto 0.4 % (0.0-0.4); Lymphocytes Absolute Auto 0.9 X10*3/uL (1.2-4.9); Lymphocytes Percent Auto 11.9 % (20-40); Mean Corpuscular HGB Conc 32.1 g/dl (31.0-36.0); Mean Corpuscular Hemoglobin 26.2 pg (27.0-33.0); Mean Corpuscular Volume 81.6 fL (80.0-98.0); Mean Platelet Volume 10.6 fL (9.4-12.4); Monocytes Absolute Auto 0.4 X10*3/uL (0.1-1.2); Platelet Count 271 X10*3/uL (160-400); Red Blood Count 5.43 X10*6/uL (4.60-5.80); Red Cell Distribution Width 13.3 % (11.0-16.0); White Blood Count 7.3 X10*3/uL (4.8-10.8)
--- NOTE | 2023-06-16 13:44 | PC.NURSE ---
another medical staff manager able to get iv also with using vein finder and all labs/blood culture set #1. rn in process of attempting to get next set BC's.
[2023-06-16] MEDS: Morphine Sulfate 4 MG/ML CARTRIDGE IVPUSH (13:47)
[2023-06-16] MEDS: ondansetron HCL 4 MG/2 ML VIAL IVPUSH (13:47)
[2023-06-16] MEDS: 0.9 % Sodium Chloride 1,000 ML 999 ML IV (13:48)
[2023-06-16] MEDS: Pantoprazole Sodium 40 MG/10 ML VIAL IVPUSH (13:48)
[2023-06-16 13:49] LABS: INTERNATIONAL NORM RATIO 3.6 (0.9-1.1); Prothrombin Time 43.5 SEC (11.1-13.3)
[2023-06-16 13:51] LABS: Lactic Acid 1.2 mmol/L (0.5-2.0); Partial Thromboplastin Time 52.2 SEC (26.0-36.4)
[2023-06-16 13:52] LABS: Lipase 14 U/L (8-78)
[2023-06-16 13:55] LABS: Alanine Aminotransferase 63 U/L (0-40); Albumin Level 4.6 g/dL (3.5-5.0); Alkaline Phosphatase 121 U/L (39-117); Anion Gap 12 (12-20); Aspartate Amino Transferase 32 U/L (5-37); Bilirubin Total 0.3 mg/dL (0.0-1.0); Blood Urea Nitrogen 12 mg/dL (9-16); C Reactive Protein 0.34 mg/dL (< or = 0.50); Calcium 9.9 mg/dL (8.4-10.2); Carbon Dioxide 28 mmol/L (22-29); Chloride 105 mmol/L (96-108); Creatinine Clr Calc Pharmacy 141.9; Estimated Glomerular Filt Rate > 60; Glucose Random 105 mg/dL (60-115); Magnesium 2.1 mg/dL (1.6-2.6); Potassium 4.1 mmol/L (3.3-5.1); Sodium 141 mmol/L (135-145); Total Protein 8.3 g/dL (6.5-8.0)
[2023-06-16 14:06] LABS: Troponin-I High Sensitivity < 2.7 ng/L (<3.5-35.0)
--- NOTE | 2023-06-16 14:18 | PC.NURSE ---
pt to ct scan
--- NOTE | 2023-06-16 14:22 | PC.NURSE ---
another staff attempted x2- used vein finder- obtained 2nd set of bc's- starting abx
[2023-06-16 14:23] LABS: Erythrocyte Sedimentation Rate 2 MM/HR (0-15)
[2023-06-16] MEDS: cefTRIAXone sodium 1 GM in 0.9 % Sodium Chloride 50 ML IV (14:23)
[2023-06-16 14:36] LABS: COVID-19 Test Negative (Negative); IDNOW Serial# 08D9AD1C
[2023-06-16] MEDS: iohexoL 350 MG/ML 100 ML INFUS..BTL IV (14:46)
[2023-06-16] MEDS: vancomycin/NS 2,000 MG/500 ML PLAST..BAG 250 MG IV (15:47)
[2023-06-16 16:26] LABS: Appearance Urine Clear; Color Urine Yellow; Glucose Urine UA Negative (Negative); Leukocyte Esterase Urine Negative (Negative); Nitrite Urine Negative (Negative); PH 7.5 (5.0-9.0); Urine Blood Negative (Negative); Urine Ketones Negative (Negative); Urine Protein Negative (Neg-Trace)
--- NOTE | 2023-06-16 19:15 | PC.NURSE ---
remained aox4. calm, coop, reports abdominal pain improved after meds/fluids. was waiting for d/c until vanco 2g finished. d/c by other bar staff
== END 2023-06-16 19:15 | disposition home or self-care (01) ==
PROVIDERS: Physician Assistant Medical; Emergency Provider Student in an Organized Health Care Education/Training Program
DX: R10.13 Epigastric pain (principal); I45.10 Unspecified right bundle-branch block; R94.31 Abnormal electrocardiogram [ECG] [EKG]; Z20.822 Contact with and (suspected) exposure to COVID-19; Z20.828 Contact with and (suspected) exposure to other viral communicable diseases; Z79.899 Other long term (current) drug therapy
CPT/HCPCS: 36415; 74177; 80053; 81003; 83605; 83690; 83735; 84484; 85025; 85610; 85652; 85730; 86140; 87040; 87635; 93005; 96374; 96375; 99284; 99285; J0696; J2270; J2405; J3370; Q9967

== ENCOUNTER → 2023-06-16 12:14 | Outpatient (BNV) | payer OTHER, SELFPAY | PROVIDERS: Emergency Provider Student in an Organized Health Care Education/Training Program; Visit Provider Internal Medicine Cardiovascular Disease | DX: I44.0 Atrioventricular block, first degree (principal); R94.31 Abnormal electrocardiogram [ECG] [EKG] | CPT/HCPCS: 93010 ==

== ENCOUNTER 2023-06-28 14:23 | Outpatient (AMB) | payer OTHER, SELFPAY ==
[2023-06-28 14:35] LABS: Prothrombin Time Whole Bld POC 45.1 sec (11.1-13.5); ~PT, ~INR - Anti Coag Clinic 3.8 (0.9-1.1)
--- NOTE | 2023-06-28 14:40 | MHC.OFFVISCO ---
Intake Intake Visit Reasons: Anticoagulation Allergies hydrocodone [From VICODIN] Allergy (Unknown, Verified 06/28/23 14:28) GI UPSET Medication List - Last Reconciled 06/28/23 by Trinh Giron RN acetaminophen ER (Tylenol Arthritis Pain) 1,300 mg PO Q8H PRN albuterol sulfate 90 mcg/actuation (ProAir HFA) 2 puffs inhalation Q4-6H PRN amoxicillin 2,000 mg PO ONCE PRN atorvastatin 20 mg PO DAILY buprenorphine-naloxone 8-2 mg (Suboxone) 1 film sublingual BID cholecalciferol (vitamin D3) 50 mcg PO DAILY ferrous sulfate (Feosol) 325 mg PO Q OTHER DAY inhalational spacing device ([facility] spacer) As directed loratadine 10 mg PO DAILY omeprazole 40 mg PO DAILY ondansetron 8 mg PO Q12H PRN ondansetron HCl 4 mg PO Q8H PRN polyethylene glycol 3350 (Miralax) 17 grams PO DAILY sennosides (senna) 8.6 mg PO BEDTIME PRN trazodone 50 mg PO BEDTIME venlafaxine ER 37.5 mg PO DAILY warfarin 7.5 mg See Protocol PO 2XW warfarin 10 mg See Protocol PO 5XW Nursing Note NO CP,SOB,DIET/MED CHANGES,FALLS OR SX OF BLEEDING. REDUCE DOSE SLIGHTLY TODAY THEN RESUME USUAL DOSE AND FOLLOW-UP IN 2 WEEKS. GOOD UNDERTSTANDING OF DOSING INSTR. Anti-Coag Initial Assessment Social Hx Patient Tobacco Use Status: Former Tobacco user Tobacco use type: Cigarette alcohol intake: current Alcohol intake frequency: does not drink Coding Level of Care Code Est Patient Level 1 Diagnoses Current use of anticoagulant therapy Z79.01 Assessment & Plan Assessment & Plan (1) Current use of anticoagulant therapy: Code(s): Z79.01 - [facility] (current) use of anticoagulants
== END 2023-06-28 14:41 | disposition home or self-care (01) ==
LOC: HO.ACS 14:23
PROVIDERS: Visit Provider Internal Medicine
DX: Z79.01 Long term (current) use of anticoagulants (principal)

== ENCOUNTER → 2023-06-28 14:23 | Outpatient (BNVA) | payer OTHER, SELFPAY | PROVIDERS: Visit Provider Internal Medicine | DX: Z95.2 Presence of prosthetic heart valve (principal); Z79.01 Long term (current) use of anticoagulants; Z51.81 Encounter for therapeutic drug level monitoring | CPT/HCPCS: 85610; 99211 ==

== ENCOUNTER 2023-07-12 15:34 | Outpatient (AMB) | payer OTHER, SELFPAY ==
[2023-07-12 15:42] LABS: Prothrombin Time Whole Bld POC 42.9 sec (11.1-13.5); ~PT, ~INR - Anti Coag Clinic 3.6 (0.9-1.1)
--- NOTE | 2023-07-12 15:42 | MHC.OFFVISCO ---
Intake Intake Visit Reasons: Anticoagulation Allergies hydrocodone [From VICODIN] Allergy (Unknown, Verified 07/12/23 15:38) GI UPSET Medication List - Last Reconciled 07/12/23 by Lindsay Couch RN acetaminophen ER (Tylenol Arthritis Pain) 1,300 mg PO Q8H PRN albuterol sulfate 90 mcg/actuation (ProAir HFA) 2 puffs inhalation Q4-6H PRN amoxicillin 2,000 mg PO ONCE PRN atorvastatin 20 mg PO DAILY buprenorphine-naloxone 8-2 mg (Suboxone) 1 film sublingual BID cholecalciferol (vitamin D3) 50 mcg PO DAILY ferrous sulfate (Feosol) 325 mg PO Q OTHER DAY inhalational spacing device ([employer] [facility] spacer) As directed loratadine 10 mg PO DAILY omeprazole 40 mg PO DAILY ondansetron 8 mg PO Q12H PRN ondansetron HCl 4 mg PO Q8H PRN polyethylene glycol 3350 (Miralax) 17 grams PO DAILY sennosides (senna) 8.6 mg PO BEDTIME PRN trazodone 50 mg PO BEDTIME venlafaxine ER 37.5 mg PO DAILY warfarin 7.5 mg See Protocol PO 2XW warfarin 10 mg See Protocol PO 5XW Nursing Note INR 3.6-?? out of therapeutic range Medications and supplements reviewed Patient status: no c.o. setting up physical therapy in [facility] Medications or supplements: no changes Diet: same Denies any signs and symptoms of bleeding or clotting or unusual bruising Bleeding, bruising, clotting discussed Nutritional guidance given: will eat a green today Dose: 10mg x 2, 7.5mg x 5 F/U INR Date : 2 weeks?? Patient verbalizing understanding of instructions given. Anti-Coag Initial Assessment Social Hx Patient Tobacco Use Status: Former Tobacco user Tobacco use type: Cigarette alcohol intake: current Alcohol intake frequency: does not drink Coding Level of Care Code Est Patient Level 1 Diagnoses Current use of anticoagulant therapy Z79.01 Assessment & Plan Assessment & Plan (1) Current use of anticoagulant therapy: Code(s): Z79.01 - [facility] (current) use of anticoagulants
== END 2023-07-12 15:51 | disposition home or self-care (01) ==
LOC: HO.ACS 15:34
PROVIDERS: Visit Provider Internal Medicine
DX: Z79.01 Long term (current) use of anticoagulants (principal)

== ENCOUNTER → 2023-07-12 15:34 | Outpatient (BNVA) | payer OTHER, SELFPAY | PROVIDERS: Visit Provider Internal Medicine | DX: Z95.2 Presence of prosthetic heart valve (principal); Z79.01 Long term (current) use of anticoagulants; Z51.81 Encounter for therapeutic drug level monitoring | CPT/HCPCS: 85610; 99211 ==

== ENCOUNTER 2023-07-17 21:40 | Emergency (ER) | payer OTHER, SELFPAY ==
--- NOTE | 2023-07-17 | ECG_ITS ---
Test Reason : ABD PAIN Blood Pressure : / mmHG Vent. Rate : 075 BPM Atrial Rate : 075 BPM P-R Int : 180 ms QRS Dur : 098 ms QT Int : 398 ms P-R-T Axes : 004 071 020 degrees QTc Int : 444 ms Normal sinus rhythm Incomplete right bundle branch block Borderline ECG When compared with ECG of 16-JUN-2023 12:56, PA interval has decreased Minimal criteria for Inferior infarct are no longer Present Referred By: Generic ED Physician Electronically Signed By:EDDIE ALEX
--- NOTE | ~2023-07-17 | CT_ITS ---
EXAMINATION: CT ABDOMEN AND PELVIS WITH CONTRAST CLINICAL INFORMATION: Pain. COMPARISON: None available. TECHNIQUE: Multidetector volumetric images were obtained from the superior aspect of the liver through the pubic symphysis following administration 100 mL of Omnipaque 350 intravenous contrast. Sagittal and coronal reformatted images were obtained on the technologist's workstation. Oral contrast: No This CT examination was performed using dose optimization techniques as appropriate, variously including the following: *Automated exposure control *Adjustment of mA and/or kV according to patient size (this includes techniques or standardized protocols for targeted exams where dose is matched to indication/reason for exam; i.e. extremities or head) *Use of iterative reconstruction technique DLP: 651 mGy-cm FINDINGS: LUNG BASES: The visualized lung bases are unremarkable. LIVER, GALLBLADDER, AND BILIARY TREE: The liver is normal in size, shape, and attenuation. No focal hepatic lesion or biliary ductal dilatation is present. The gallbladder is unremarkable with no evidence of radiopaque gallstones, gallbladder wall thickening, or obvious pericholecystic inflammatory changes. PANCREAS: Unremarkable. SPLEEN: Unremarkable. ADRENAL GLANDS: Unremarkable. KIDNEYS AND URETERS: The kidneys are normal in size, shape, and attenuation. No hydronephrosis, hydroureter, or calculi seen. No perinephric stranding. There is a 3.8 cm cyst mid to upper pole right kidney. BLADDER: Unremarkable. GASTROINTESTINAL TRACT: There is retained stool. The appendix is visualized and is within normal limits. ABDOMINAL WALL: No significant hernia is appreciated. LYMPH NODES: Normal. VASCULAR: Unremarkable. PELVIC VISCERA: Unremarkable. OSSEOUS STRUCTURES: Unremarkable. CT/CT abdomen pelvis w IV con IMPRESSION: No acute intra-abdominal process. Retained stool of uncertain significance. Fleischner guidelines were followed.
[2023-07-17 21:49] VITALS: BP 133/67; BP 160/84; PULSE 75; PULSE 99; RESP 12; TEMP 37.1; O2SAT 99; BMI 29.3
[2023-07-17 22:05] LABS: MANUAL DIFF FLAG NO
[2023-07-17 22:06] LABS: Basophils Percent Auto 0.2 % (0-2); Eosinophils Absolute Auto 0.1 X10*3/uL (0.0-0.4); Eosinophils Percent Auto 1.1 % (0-4); Hemoglobin 13.7 g/dl (14.0-18.0); Imm Gran Abs Auto 0.01 X10*3/uL (0.00-0.03); Imm Gran Pct Auto 0.2 % (0.0-0.4); Lymphocytes Absolute Auto 1.7 X10*3/uL (1.2-4.9); Lymphocytes Percent Auto 35.7 % (20-40); Mean Corpuscular HGB Conc 32.6 g/dl (31.0-36.0); Mean Corpuscular Hemoglobin 26.1 pg (27.0-33.0); Mean Corpuscular Volume 80.2 fL (80.0-98.0); Mean Platelet Volume 10.4 fL (9.4-12.4); Monocytes Absolute Auto 0.5 X10*3/uL (0.1-1.2); Monocytes Percent Auto 10.5 % (2-11); Neutrophils Absolute Auto 2.5 x10*3/uL (2.0-8.3); Neutrophils Percent Auto 52.3 % (45-73); Platelet Count 269 X10*3/uL (160-400); Red Blood Count 5.24 X10*6/uL (4.60-5.80); Red Cell Distribution Width 13.4 % (11.0-16.0); White Blood Count 4.8 X10*3/uL (4.8-10.8)
[2023-07-17 22:21] LABS: Alanine Aminotransferase 37 U/L (0-40); Albumin Level 4.3 g/dL (3.5-5.0); Alkaline Phosphatase 116 U/L (39-117); Anion Gap 11 (12-20); Aspartate Amino Transferase 27 U/L (5-37); Bilirubin Direct 0.2 mg/dL (0.0-0.5); Bilirubin Total 0.4 mg/dL (0.0-1.0); Blood Urea Nitrogen 15 mg/dL (9-16); Calcium 9.3 mg/dL (8.4-10.2); Carbon Dioxide 29 mmol/L (22-29); Chloride 104 mmol/L (96-108); Creatinine Clr Calc Pharmacy 122.3; Estimated Glomerular Filt Rate > 60; Glucose Random 107 mg/dL (60-115); Lipase 14 U/L (8-78); Sodium 140 mmol/L (135-145); Total Protein 7.8 g/dL (6.5-8.0)
[2023-07-17 23:54] VITALS: BP 117/52; PULSE 75; RESP 11; TEMP 36.7; O2SAT 97
--- NOTE | 2023-07-18 00:18 | ED_ITS ---
HPI - Abdominal Pain General Chief Complaint: Abdominal Pain Stated Complaint: ABD PAIN Time Seen by Provider: 07/17/23 21:58 History of Present Illness HPI narrative: Patient is a 38-year-old male with a history of CVA. History of endocarditis. Currently on Coumadin. Has a prosthetic valve. Presented today with having epigastric abdominal pain after eating a rib sandwich. The pain is dull. Epigastric. No history of cholecystitis. No fever no chills. No chest pain or diaphoresis. Patient is from home. Related Data Home Medications Medication Instructions Recorded Confirmed trazodone 50 mg tablet 50 mg PO BEDTIME 02/11/21 06/14/23 acetaminophen 650 mg 1,300 mg PO Q8H PRN Pain 09/24/22 06/14/23 tablet,extended release (Tylenol Arthritis Pain) albuterol sulfate 90 mcg/actuation 2 puff inhalation Q4-6H PRN 09/24/22 06/14/23 aerosol inhaler (ProAir HFA) Wheezing buprenorphine 8 mg-naloxone 2 mg 1 film sublingual BID 09/24/22 06/14/23 sublingual film (Suboxone) cholecalciferol (vitamin D3) 50 50 mcg PO DAILY 09/24/22 06/14/23 mcg (2,000 unit) capsule ferrous sulfate 325 mg (65 mg 325 mg PO Q OTHER DAY 09/24/22 06/14/23 iron) tablet (Feosol) loratadine 10 mg tablet 10 mg PO DAILY 09/24/22 06/14/23 ondansetron 4 mg disintegrating 8 mg PO Q12H PRN nausea and 09/24/22 06/14/23 tablet vomiting inhalational spacing device #1 ea 09/29/22 06/14/23 ([facility] spacer) ondansetron HCl 4 mg tablet 4 mg PO Q8H PRN nausea/vomiting 09/29/22 06/14/23 sennosides 8.6 mg tablet (senna) 8.6 mg PO BEDTIME PRN Constipation 11/03/22 06/14/23 amoxicillin 500 mg capsule 2,000 mg PO ONCE PRN 02/16/23 06/14/23 polyethylene glycol 3350 17 17 g PO DAILY 04/08/23 06/14/23 gram/dose oral powder (Miralax) warfarin 5 mg tablet 10 mg PO 5XW 04/21/23 07/12/23 warfarin 7.5 mg tablet 7.5 mg PO 2XW 04/21/23 07/12/23 atorvastatin 20 mg tablet 20 mg PO DAILY 06/08/23 06/14/23 venlafaxine 37.5 mg 37.5 mg PO DAILY 06/08/23 06/14/23 capsule,extended release 24 hr Previous Rx's Medication Instructions Recorded omeprazole 40 mg capsule,delayed 40 mg PO DAILY #30 caps 06/16/23 release Allergies Allergy/AdvReac Type Severity Reaction Status Date / Time hydrocodone [From VICODIN] Allergy Unknown GI UPSET Verified 07/12/23 15:38 Review of Systems Review of Systems Positive abdominal pain PMFSH Past Medical History Attestation statement: The following information was validated with the patient. Medical History Anticoagulant causing adverse effect in therapeutic use CVA (cerebrovascular accident due to intracerebral hemorrhage) Endocarditis of prosthetic mitral valve SIRS (systemic inflammatory response syndrome) Myalgia Opioid use disorder Fracture of proximal end of humerus Asthma Current use of anticoagulant therapy Surgical History Heart valve replaced History of heart valve replacement with mechanical valve Presence of other heart-valve replacement Family History Family History Father Diabetes Mother H/O thyroid disease Social History Social History Household Members: Family Housing: Apartment Do you presently have visiting nurse or other home services: No Alcohol intake: never Patient Tobacco Use Status: Former Tobacco user Tobacco use type: Cigarette Smoked in Last 30 Days: No Use of substances other than those prescribed or required for medical reasons: No Substance Use Type: Other Advance Directives: No Advance Directives Information Provided: No service: No Current occupational status: unemployed 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 Oriented X3. No acute distress. Eyes: Pupils equal, round and reactive to light. ENT: Pharynx normal. Neck: Normal inspection. Neck supple. No lymph nodes noted. No crepitus CVS: Normal heart rate and rhythm. Pulses normal. Normal S1 and S2 Respiratory: No respiratory distress. Breath sounds normal. No Wheezing. No rales Abdomen: Mild epigastric tenderness no rebound or guarding Skin: Skin warm and dry. Normal skin color. Normal skin turgor. Extremities: No lower extremity edema. Neurovascular intact to all extremities. No Lacerations. No Rash Neuro: Oriented X 3. No motor deficit. No sensory deficit. Moving all extermities. No slurred speech Medical Decision Making Medical Decision Making [facility] Narrative: Positive abdominal pain in the epigastric area. Patient's LFTs actually normal. Has a history of CVA. History of having valve replacement. Currently on Coumadin. CT scan of the abdomen is currently pending. Patient's white count is normal. LFTs normal. Less likely biliary in origin. Urine showed no signs of infection. Differential Diagnosis Differential Diagnoses: The differential diagnosis associated with the presentation includes Biliary colic, gastritis, abscess, perforation, diverticulitis Lab Data [facility] Lab Attestation statement: I reviewed the patient's lab results. 07/17/23 22:01 07/17/23 22:01 Labs: Lab Results 07/17/23 07/18/23 07/18/23 Range/Units 22:01 00:12 00:46 WBC 4.8 (4.8-10.8) X10*3/uL RBC 5.24 (4.60-5.80) X10*6/uL Hgb 13.7 L (14.0-18.0) g/dl Hct 42.0 (42.0-52.0) % MCV 80.2 (80.0-98.0) fL MCH 26.1 L (27.0-33.0) pg MCHC 32.6 (31.0-36.0) g/dl RDW 13.4 (11.0-16.0) % Plt Count 269 (160-400) X10*3/uL MPV 10.4 (9.4-12.4) fL Immature Gran % (Auto) 0.2 (0.0-0.4) % Neut % (Auto) 52.3 (45-73) % Lymph % (Auto) 35.7 (20-40) % [place] % (Auto) 10.5 (2-11) % Eos % (Auto) 1.1 (0-4) % Baso % (Auto) 0.2 (0-2) % Lymph # (Auto) 1.7 (1.2-4.9) X10*3/uL [place] # (Auto) 0.5 (0.1-1.2) X10*3/uL Eos # (Auto) 0.1 (0.0-0.4) X10*3/uL Baso # (Auto) 0.0 (0.0-0.2) X10*3/uL Abs Immat Gran (auto) 0.01 (0.00-0.03) X10*3/uL Absolute Neuts (auto) 2.5 (2.0-8.3) x10*3/uL Absolute Nucleated RBC 0.000 (0.0-0.012) X10*3/uL Nucleated RBC % (auto) 0.0 (0.0-0.2) /100WBC PT 44.2 H (11.1-13.3) SEC INR 3.6 H (0.9-1.1) Sodium 140 (135-145) mmol/L Potassium 4.0 (3.3-5.1) mmol/L Chloride 104 (96-108) mmol/L Carbon Dioxide 29 (22-29) mmol/L Anion Gap 11 L (12-20) BUN 15 (9-16) mg/dL Creatinine 1.08 (0.5-1.4) mg/dL Estim Creat Clear Calc 122.3 Estimated GFR > 60 Random Glucose 107 (60-115) mg/dL Calcium 9.3 D (8.4-10.2) mg/dL Total Bilirubin 0.4 (0.0-1.0) mg/dL Direct Bilirubin 0.2 (0.0-0.5) mg/dL AST 27 (5-37) U/L ALT 37 (0-40) U/L Alkaline Phosphatase 116 (39-117) U/L Total Protein 7.8 (6.5-8.0) g/dL Albumin 4.3 (3.5-5.0) g/dL Lipase 14 (8-78) U/L Urine Color Yellow Urine Appearance Clear Urine pH 7.5 (5.0-9.0) Ur Specific [place] 1.020 (1.005-1.025) Urine Protein Negative (Neg-Trace) mg/dL Urine Glucose (UA) Negative (Negative) mg/dL Urine Ketones Negative (Negative) mg/dL Urine Blood Negative (Negative) Urine Nitrite Negative (Negative) Ur Leukocyte Esterase Negative (Negative) Urine RBC 0-2 (0-2) /HPF Urine WBC 0-5 (0-5) /HPF Ur Squamous Epith Cells 0-2 (0-2) /HPF Urine Bacteria None Seen (None Seen) Hyaline Casts 0-2 (0-2) /LPF Medications Administered Discontinued Medications Generic Name Dose Route Start Last Admin Trade Name Freq PRN Reason Stop Dose Admin Al Hydroxide/Mg Hydroxide 30 ml 07/18/23 00:14 07/18/23 00:22 Magnesium Hydrox/Alum Hydrox 30 Ml Oral.Susp PO 07/18/23 00:15 30 ml ONCE ONE Administration Sodium Chloride 1,000 mls @ 999 mls/hr 07/18/23 00:15 07/18/23 01:25 Ns IV 07/18/23 01:15 Infused .Q1H1M KERI Infusion Iohexol 100 ml 07/18/23 01:08 07/18/23 01:09 Iohexol 350 Mg/Ml 100 Ml Infus..Btl IV 07/18/23 01:09 100 ml ONCE ONE Administration Ondansetron HCl 4 mg 07/18/23 00:13 07/18/23 00:22 Ondansetron Hcl 4 Mg/2 Ml Vial IVPUSH 07/18/23 00:14 4 mg ONCE ONE Administration Discharge Plan Discharge Clinical Impression: Abdominal pain in male Patient Disposition: Still a Patient Prescriptions: No Action warfarin 5 mg tablet 10 mg PO 5XW Hold Instructions: Doctor's Order Protocol: Dose Management Condition: Tuesday (Week One) Dose/Route: 7.5 mg Instruction: 1 x 7.5 mg tablet Condition: Tuesday Dose/Route: 10 mg Instruction: 2 x 5 mg tablets Condition: Tuesday Dose/Route: 7.5 mg Instruction: 1 x 7.5 mg tablet Condition: Tuesday Dose/Route: 7.5 mg Instruction: 1 x 7.5 mg tablet Condition: Dose/Route: 10 mg Instruction: 2 x 5 mg tablets Condition: Tuesday Dose/Route: 7.5 mg Instruction: 1 x 7.5 mg tablet Condition: Tuesday Dose/Route: 7.5 mg Instruction: 1 x 7.5 mg tablet Condition: Tuesday ( Two) Dose/Route: 7.5 mg Instruction: 1 x 7.5 mg tablet Condition: Tuesday Dose/Route: 10 mg Instruction: 2 x 5 mg tablets Condition: Tuesday Dose/Route: 7.5 mg Instruction: 1 x 7.5 mg tablet Condition: Tuesday Dose/Route: 7.5 mg Instruction: 1 x 7.5 mg tablet Condition: Dose/Route: 10 mg Instruction: 2 x 5 mg tablets Condition: Tuesday Dose/Route: 7.5 mg Instruction: 1 x 7.5 mg tablet Condition: Tuesday Dose/Route: 7.5 mg Instruction: 1 x 7.5 mg tablet Protocol Text: Adjustment Start Date: Tuesday07/12/23 INR Value: 3.6 INR Date: 07/12/23 Recheck Date: 07/26/23 Additional Instructions: cont reg dosing eat a green today warfarin 7.5 mg tablet 7.5 mg PO 2XW Hold Instructions: Doctor's Order Protocol: Dose Management Condition: Tuesday (Week One) Dose/Route: 7.5 mg Instruction: 1 x 7.5 mg tablet Condition: Tuesday Dose/Route: 10 mg Instruction: 2 x 5 mg tablets Condition: Tuesday Dose/Route: 7.5 mg Instruction: 1 x 7.5 mg tablet Condition: Tuesday Dose/Route: 7.5 mg Instruction: 1 x 7.5 mg tablet Condition: Dose/Route: 10 mg Instruction: 2 x 5 mg tablets Condition: Tuesday Dose/Route: 7.5 mg Instruction: 1 x 7.5 mg tablet Condition: Tuesday Dose/Route: 7.5 mg Instruction: 1 x 7.5 mg tablet Condition: Tuesday ( Two) Dose/Route: 7.5 mg Instruction: 1 x 7.5 mg tablet Condition: Tuesday Dose/Route: 10 mg Instruction: 2 x 5 mg tablets Condition: Tuesday Dose/Route: 7.5 mg Instruction: 1 x 7.5 mg tablet Condition: Tuesday Dose/Route: 7.5 mg Instruction: 1 x 7.5 mg tablet Condition: Dose/Route: 10 mg Instruction: 2 x 5 mg tablets Condition: Tuesday Dose/Route: 7.5 mg Instruction: 1 x 7.5 mg tablet Condition: Tuesday Dose/Route: 7.5 mg Instruction: 1 x 7.5 mg tablet Protocol Text: Adjustment Start Date: Tuesday07/12/23 INR Value: 3.6 INR Date: 07/12/23 Recheck Date: 07/26/23 Additional Instructions: cont reg dosing eat a green today sennosides [senna] 8.6 mg Tablet 8.6 mg PO BEDTIME PRN (Reason: Constipation) omeprazole 40 mg capsule,delayed release(DR/EC) 40 mg PO DAILY Qty: 30 0RF trazodone 50 mg tablet 50 mg PO BEDTIME ferrous sulfate [Feosol] 325 mg (65 mg iron) tablet 325 mg PO Q OTHER DAY loratadine 10 mg tablet 10 mg PO DAILY ondansetron 4 mg tablet,disintegrating 8 mg PO Q12H PRN (Reason: nausea and vomiting) albuterol sulfate [ProAir HFA] 90 mcg/actuation HFA aerosol inhaler 2 puff inhalation Q4-6H PRN (Reason: Wheezing) buprenorphine-naloxone [Suboxone] 8-2 mg film 1 film sublingual BID acetaminophen [Tylenol Arthritis Pain] 650 mg tablet extended release 1,300 mg PO Q8H PRN (Reason: Pain) cholecalciferol (vitamin D3) 50 mcg (2,000 unit) capsule 50 mcg PO DAILY (DME) [facility] Spacer See Rx Instructions .ROUTE .MEDSUPPLY Qty: 1 Rx Instructions: As directed ondansetron HCl 4 mg tablet 4 mg PO Q8H PRN (Reason: nausea/vomiting) amoxicillin 500 mg capsule 2,000 mg PO ONCE PRN polyethylene glycol 3350 [Miralax] 17 gram/dose powder 17 g PO DAILY atorvastatin 20 mg tablet 20 mg PO DAILY venlafaxine 37.5 mg capsule,extended release 24hr 37.5 mg PO DAILY
[2023-07-18 00:20] LABS: Appearance Urine Clear; Color Urine Yellow; Glucose Urine UA Negative (Negative); Leukocyte Esterase Urine Negative (Negative); Nitrite Urine Negative (Negative); PH 7.5 (5.0-9.0); Urine Blood Negative (Negative); Urine Ketones Negative (Negative); Urine Protein Negative (Neg-Trace)
[2023-07-18 00:22] LABS: Bacteria Urine None Seen (None Seen); Hyaline Casts Urine 0-2 /LPF (0-2); RBC Urine 0-2 /HPF (0-2); Squamous Epithelial Cell Urine 0-2 /HPF (0-2); WBC Urine 0-5 /HPF (0-5)
[2023-07-18] MEDS: Magnesium Hydrox/Alum Hydrox 30 ML ORAL.SUSP PO (00:22)
[2023-07-18] MEDS: ondansetron HCL 4 MG/2 ML VIAL IVPUSH (00:22)
[2023-07-18] MEDS: 0.9 % Sodium Chloride 1,000 ML 999 ML IV (00:22)
[2023-07-18 00:23] VITALS: PULSE 73; RESP 13; TEMP 37.1; O2SAT 97
--- NOTE | 2023-07-18 00:25 | PC.NURSE ---
20g Iv placed in RAC, medications administered per MAR. Pt offers no complaints to this RN at this time other than the abdominal pain. respirations even and unlabored, skin pwd, alert and oriented x4, no apparent distress. plan for CT scan
[2023-07-18 00:57] LABS: INTERNATIONAL NORM RATIO 3.6 (0.9-1.1); Prothrombin Time 44.2 SEC (11.1-13.3)
[2023-07-18] MEDS: iohexoL 350 MG/ML 100 ML INFUS..BTL IV (01:09)
--- NOTE | 2023-07-18 02:15 | PC.NURSE ---
Late entry: patient reporting decreased pain at this time, ambulating independently to bathroom, offers no complaints at this time
[2023-07-18 03:11] VITALS: PULSE 70; RESP 13; O2SAT 99
--- NOTE | 2023-07-18 03:12 | PC.NURSE ---
Patient sleeping at this time, respirations even and unlabored, skin pwd, no apparent distress
[2023-07-18] MEDS: Milk of Magnesia 30 ML ORAL.SUSP PO (03:31)
== END 2023-07-18 03:37 | disposition home or self-care (01) ==
PROVIDERS: Emergency Provider Emergency Medicine Emergency Medical Services
DX: R10.13 Epigastric pain (principal); R10.2 Pelvic and perineal pain; I45.10 Unspecified right bundle-branch block; R94.31 Abnormal electrocardiogram [ECG] [EKG]; Z86.73 Personal history of transient ischemic attack (TIA), and cerebral infarction without residual deficits; Z79.01 Long term (current) use of anticoagulants; Z79.899 Other long term (current) drug therapy; Z87.891 Personal history of nicotine dependence
CPT/HCPCS: 36415; 74177; 80053; 81001; 82248; 83690; 85025; 85610; 93005; 96361; 96374; 99285; J2405; Q9967

== ENCOUNTER 2023-08-02 15:02 | Outpatient (AMB) | payer OTHER, SELFPAY ==
[2023-08-02 15:08] LABS: Prothrombin Time Whole Bld POC 48.7 sec (11.1-13.5); ~PT, ~INR - Anti Coag Clinic 4.1 (0.9-1.1)
--- NOTE | 2023-08-02 15:19 | MHC.OFFVISCO ---
Intake Intake Visit Reasons: Anticoagulation Allergies hydrocodone [From VICODIN] Allergy (Unknown, Verified 08/02/23 15:03) GI UPSET Medication List - Last Reconciled 08/02/23 by Lindsay Couch RN acetaminophen ER (Tylenol Arthritis Pain) 1,300 mg PO Q8H PRN albuterol sulfate 90 mcg/actuation (ProAir HFA) 2 puffs inhalation Q4-6H PRN amoxicillin 2,000 mg PO ONCE PRN atorvastatin 20 mg PO DAILY buprenorphine-naloxone 8-2 mg (Suboxone) 1 film sublingual BID cholecalciferol (vitamin D3) 50 mcg PO DAILY ferrous sulfate (Feosol) 325 mg PO Q OTHER DAY inhalational spacing device ([employer] spacer) As directed loratadine 10 mg PO DAILY omeprazole 40 mg PO DAILY ondansetron 8 mg PO Q12H PRN ondansetron HCl 4 mg PO Q8H PRN polyethylene glycol 3350 (Miralax) 17 grams PO DAILY sennosides (senna) 8.6 mg PO BEDTIME PRN trazodone 50 mg PO BEDTIME venlafaxine ER 37.5 mg PO DAILY warfarin 7.5 mg See Protocol PO 2XW warfarin 10 mg See Protocol PO 5XW Nursing Note INR 4.1-? out of therapeutic range Medications and supplements reviewed Patient status: pt states recent ed visit times 2- 06/16/23 with abd pain- was prescribed omeprazole 40mg daily x 30 days- which can raise inr. pt states completed. [facility] [place] on 07/17/23 for constipation- ct scan of abd done in ed. pt states was given mom and mylanta, denies constipation at this time. inr noted to be 3.6 on 07/18/23. Medications or supplements: noted above Diet: same Denies any signs and symptoms of bleeding or clotting or unusual bruising Bleeding, bruising, clotting discussed - pt states scant bleeding from mouth/throat after coughing forcefully in the am x 2, none today Nutritional guidance given: eat greens to lower inr, no reds for 2 days Dose: pt states took 5mg warfarin yesterday in error. reduce dose today to 5mg then cont 10mg x 2, 7.5mg x 5 F/U INR Date : 1 week?? Patient verbalizing understanding of instructions given. Anti-Coag Initial Assessment Social Hx Patient Tobacco Use Status: Former Tobacco user Tobacco use type: Cigarette alcohol intake: never Alcohol intake frequency: does not drink Coding Level of Care Code Est Patient Level 1 Diagnoses Current use of anticoagulant therapy Z79.01 Assessment & Plan Assessment & Plan (1) Current use of anticoagulant therapy: Code(s): Z79.01 - [facility] (current) use of anticoagulants
== END 2023-08-02 15:33 | disposition home or self-care (01) ==
LOC: HO.ACS 15:02
PROVIDERS: PCP Registered Nurse; Visit Provider Internal Medicine
DX: Z79.01 Long term (current) use of anticoagulants (principal)

== ENCOUNTER → 2023-08-02 15:02 | Outpatient (BNVA) | payer OTHER, SELFPAY | PROVIDERS: PCP Registered Nurse; Visit Provider Internal Medicine | DX: Z95.2 Presence of prosthetic heart valve (principal); Z79.01 Long term (current) use of anticoagulants; Z51.81 Encounter for therapeutic drug level monitoring | CPT/HCPCS: 85610; 99211 ==

== ENCOUNTER 2023-08-08 15:10 | Outpatient (AMB) | payer OTHER, SELFPAY ==
--- NOTE | 2023-08-08 15:16 | MHC.OFFVISCO ---
Intake Intake Visit Reasons: Anticoagulation Allergies hydrocodone [From VICODIN] Allergy (Unknown, Verified 08/08/23 15:12) GI UPSET Medication List - Last Reconciled 08/08/23 by Lindsay Couch RN acetaminophen ER (Tylenol Arthritis Pain) 1,300 mg PO Q8H PRN albuterol sulfate 90 mcg/actuation (ProAir HFA) 2 puffs inhalation Q4-6H PRN amoxicillin 2,000 mg PO ONCE PRN atorvastatin 20 mg PO DAILY buprenorphine-naloxone 8-2 mg (Suboxone) 1 film sublingual BID cholecalciferol (vitamin D3) 50 mcg PO DAILY ferrous sulfate (Feosol) 325 mg PO Q OTHER DAY inhalational spacing device ([employer] Pasc[employer] [facility] spacer) As directed loratadine 10 mg PO DAILY ondansetron 8 mg PO Q12H PRN ondansetron HCl 4 mg PO Q8H PRN polyethylene glycol 3350 (Miralax) 17 grams PO DAILY sennosides (senna) 8.6 mg PO BEDTIME PRN trazodone 50 mg PO BEDTIME venlafaxine ER 37.5 mg PO DAILY warfarin 7.5 mg See Protocol PO 2XW warfarin 10 mg See Protocol PO 5XW Nursing Note INR: 3.1- in therapeutic range Medications and supplements reviewed- No changes in health, diet, medications, or supplements, Denies any signs and symptoms of bleeding or bruising or clotting. Bleeding, bruising, clotting discussed Nutritional guidance given Dose: 10mg x 2, 7.5mg x 5 F/U INR: 2 weeks Patient verbalizes understanding of instructions given Anti-Coag Initial Assessment Social Hx Patient Tobacco Use Status: Former Tobacco user Tobacco use type: Cigarette alcohol intake: never Alcohol intake frequency: does not drink Coding Level of Care Code Est Patient Level 1 Diagnoses Current use of anticoagulant therapy Z79.01 Assessment & Plan Assessment & Plan (1) Current use of anticoagulant therapy: Code(s): Z79.01 - [employer] (current) use of anticoagulants Medications: Discontinued omeprazole Discontinued Reason: Patient no longer taking 40 mg PO DAILY 30 caps 0RF
[2023-08-08 15:17] LABS: Prothrombin Time Whole Bld POC 37.4 sec (11.1-13.5); ~PT, ~INR - Anti Coag Clinic 3.1 (0.9-1.1)
== END 2023-08-08 15:22 | disposition home or self-care (01) ==
LOC: HO.ACS 15:10
PROVIDERS: PCP Registered Nurse; Visit Provider Internal Medicine
DX: Z79.01 Long term (current) use of anticoagulants (principal)

== ENCOUNTER → 2023-08-08 15:10 | Outpatient (BNVA) | payer OTHER, SELFPAY | PROVIDERS: PCP Registered Nurse; Visit Provider Internal Medicine | DX: Z95.2 Presence of prosthetic heart valve (principal); Z51.81 Encounter for therapeutic drug level monitoring; Z79.01 Long term (current) use of anticoagulants | CPT/HCPCS: 85610; 99211 ==

== ENCOUNTER 2023-08-15 18:15 | Emergency (ER) | payer OTHER, SELFPAY ==
[2023-08-15 19:29] VITALS: BP 121/69; PULSE 81; RESP 16; TEMP 37.1; O2SAT 98; BMI 28.7
--- NOTE | 2023-08-15 19:49 | ED.GENADULT ---
HPI - General Adult General Chief complaint: General Medical Stated complaint: Throat pain Time Seen by Provider: 08/15/23 20:28 Source: patient Mode of arrival: ambulatory Limitations: no limitations History of Present Illness HPI narrative: 38-year-old male presents to the ED for sore throat for the past couple of days. Patient denies any drooling, change in voice, neck swelling, chest pain, shortness of breath, or any recent dental work. Patient states pain when swallowing but able to drink liquids and eat solid food. Related Data Home Medications Medication Instructions Recorded Confirmed trazodone 50 mg tablet 50 mg PO BEDTIME 02/11/21 06/14/23 acetaminophen 650 mg 1,300 mg PO Q8H PRN Pain 09/24/22 06/14/23 tablet,extended release (Tylenol Arthritis Pain) albuterol sulfate 90 mcg/actuation 2 puff inhalation Q4-6H PRN 09/24/22 06/14/23 aerosol inhaler (ProAir HFA) Wheezing buprenorphine 8 mg-naloxone 2 mg 1 film sublingual BID 09/24/22 06/14/23 sublingual film (Suboxone) cholecalciferol (vitamin D3) 50 50 mcg PO DAILY 09/24/22 06/14/23 mcg (2,000 unit) capsule ferrous sulfate 325 mg (65 mg 325 mg PO Q OTHER DAY 09/24/22 06/14/23 iron) tablet (Feosol) loratadine 10 mg tablet 10 mg PO DAILY 09/24/22 06/14/23 ondansetron 4 mg disintegrating 8 mg PO Q12H PRN nausea and 09/24/22 06/14/23 tablet vomiting inhalational spacing device #1 ea 09/29/22 06/14/23 (Raghav Ashraf [facility] spacer) ondansetron HCl 4 mg tablet 4 mg PO Q8H PRN nausea/vomiting 09/29/22 06/14/23 sennosides 8.6 mg tablet (senna) 8.6 mg PO BEDTIME PRN Constipation 11/03/22 06/14/23 amoxicillin 500 mg capsule 2,000 mg PO ONCE PRN 02/16/23 06/14/23 polyethylene glycol 3350 17 17 g PO DAILY 04/08/23 06/14/23 gram/dose oral powder (Miralax) warfarin 5 mg tablet 10 mg PO 5XW 04/21/23 08/08/23 warfarin 7.5 mg tablet 7.5 mg PO 2XW 04/21/23 08/08/23 atorvastatin 20 mg tablet 20 mg PO DAILY 06/08/23 06/14/23 venlafaxine 37.5 mg 37.5 mg PO DAILY 06/08/23 06/14/23 capsule,extended release 24 hr Previous Rx's Medication Instructions Recorded acetaminophen 325 mg capsule 325 mg PO QID PRN pain 7 days #28 08/15/23 caps Allergies Allergy/AdvReac Type Severity Reaction Status Date / Time hydrocodone [From VICODIN] Allergy Unknown GI UPSET Verified 08/15/23 19:31 Review of Systems Review of Systems: Sore throat Yes all other systems are reviewed and are negative [facility] Past Medical History Medical History Anticoagulant causing adverse effect in therapeutic use CVA (cerebrovascular accident due to intracerebral hemorrhage) Endocarditis of prosthetic mitral valve SIRS (systemic inflammatory response syndrome) Myalgia Opioid use disorder Fracture of proximal end of humerus Asthma Current use of anticoagulant therapy Surgical History Heart valve replaced History of heart valve replacement with mechanical valve Presence of other heart-valve replacement Family History Family History Father Diabetes Mother H/O thyroid disease Social History Social History Household Members: Family Housing: Apartment Do you presently have visiting nurse or other home services: No Alcohol intake: never Patient Tobacco Use Status: Former Tobacco user Tobacco use type: Cigarette Smoked in Last 30 Days: No Substance Use Type: Other Advance Directives: No Advance Directives Information Provided: No service: No Current occupational status: unemployed 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 Physical Exam ED Vital Signs: Vital Signs - 24 hr 08/15/23 19:29 Temperature 98.7 F Pulse Rate 81 Respiratory Rate 16 Blood Pressure 121/69 Pulse Oximetry 98 Oxygen Delivery Method Room Air BMI result Body Mass Index 28.7 Const General: cooperative, healthy appearing, comfortable, no acute distress, well developed, alert, awake and Physically active Orientation/consciousness: oriented to person, oriented to place, oriented to time and patient oriented x3 HENMT Head: Yes normal to inspection, Yes No palpable skull fracture present, Yes normocephalic, Yes atraumatic and No abrasion Throat: Yes posterior oropharynx normal, Yes tonsils normal and Yes uvula midline Eyes General: appearance normal, both eyes and all related structures Neck Neck: Yes normal visual inspection, Yes full ROM, Yes no lymphadenopathy, Yes no meningeal signs, Yes trachea midline, Yes supple, No anterior neck swelling and No tender Chest Chest palpation & inspection: normal inspection of the chest and normal palpation of entire chest wall Resp Effort & Inspection: normal respiratory effort and able to speak in complete sentences Auscultation: clear to auscultation bilaterally Cardio Jugular venous distension: no JVD Heart sounds: S1 normal heart sound present and S2 normal heart sound present GI Inspection: Yes normal to inspection and No abdominal wall ecchymosis Palpation (GI): Soft to palpation, not firm, nontender, no guarding and not rigid General: No CVA tenderness and Yes no CVA tenderness Back/Spine/Pelvis Back: no CVA tenderness, No CVA tenderness and No back tenderness Skin General skin exam: no rashes or lesions noted, elasticity normal and turgor normal Neuro General: oriented to person, oriented to place, oriented to time, patient oriented x3, gait normal, tone normal, moves all extremities, Normal light touch and pain sensation, no meningeal signs, no focal motor deficits, CN's II-XI intact bilaterally and normal sensation to monofilament Extrem General: Yes normal to inspection and Yes full ROM Psych Appearance: grossly normal, well kempt and not disheveled Course Course Course Narrative: RME performed by Nimo Celis PA-C. Patient is a 38 year old assigned male at presenting to the emergency department with a sore throat. Swabs ordered. Patient placed back in the waiting room pending room availability and results. Medical Decision Making Medical Decision Making [facility] Narrative: 38-year-old male presents to the ED for sore throat. Patient denies any chest pain, shortness of breath, neck swelling, drooling, change in voice, fever, chills, or difficulty swallowing food or drinking liquid. Patient well-appearing. Patient speaking in full sentences. Influenza RSV COVID negative. Strep negative Differential Diagnosis Differential Diagnoses: The differential diagnosis associated with the presentation includes (COVID, influenza, strep) Lab Data [facility] Lab Attestation statement: I reviewed the patient's lab results. Labs: Lab Results 08/15/23 Range/Units 19:53 Influenza Type A (PCR) NEGATIVE (Negative) Influenza Type B (PCR) NEGATIVE (Negative) RSV RNA Qual (PCR) NEGATIVE (Negative) SARS-CoV-2 RNA (RT-PCR) NEGATIVE (Negative) S. pyogenes GrpA FRACISCO Negative (Negative) Independent Historian Clinical information obtained from an independent historian. History obtained from or confirmed by: Other (Patient) External Record Review External record reviewed: Other (Prior ED visit) Prescription Management I considered prescription management with: Pain Medication Discharge Plan Discharge Clinical Impression: Sore throat Patient Disposition: Home, Self-Care Instructions: Pharyngitis (ED) Additional Instructions: Return to the ED for any drooling, change in voice, worsening sore throat, chest pain, shortness of breath, neck swelling, drooling, fever, chills, any other concerning symptoms. Please follow-up with your primary care provider. Prescriptions: New acetaminophen 325 mg capsule 325 mg PO QID PRN (Reason: pain) 7 Days Qty: 28 0RF No Action warfarin 5 mg tablet 10 mg PO 5XW Hold Instructions: Doctor's Order Protocol: Dose Management Condition: Tuesday (Week One) Dose/Route: 7.5 mg Instruction: 1 x 7.5 mg tablet Condition: Tuesday Dose/Route: 10 mg Instruction: 2 x 5 mg tablets Condition: Tuesday Dose/Route: 7.5 mg Instruction: 1 x 7.5 mg tablet Condition: Tuesday Dose/Route: 7.5 mg Instruction: 1 x 7.5 mg tablet Condition: Dose/Route: 10 mg Instruction: 2 x 5 mg tablets Condition: Tuesday Dose/Route: 7.5 mg Instruction: 1 x 7.5 mg tablet Condition: Tuesday Dose/Route: 7.5 mg Instruction: 1 x 7.5 mg tablet Condition: Tuesday (Week Two) Dose/Route: 7.5 mg Instruction: 1 x 7.5 mg tablet Condition: Tuesday Dose/Route: 10 mg Instruction: 2 x 5 mg tablets Condition: Tuesday Dose/Route: 7.5 mg Instruction: 1 x 7.5 mg tablet Condition: Tuesday Dose/Route: 7.5 mg Instruction: 1 x 7.5 mg tablet Condition: Dose/Route: 10 mg Instruction: 2 x 5 mg tablets Condition: Tuesday Dose/Route: 7.5 mg Instruction: 1 x 7.5 mg tablet Condition: Tuesday Dose/Route: 7.5 mg Instruction: 1 x 7.5 mg tablet Protocol Text: Adjustment Start Date: Tuesday08/08/23 INR Value: 3.1 INR Date: 08/08/23 Recheck Date: 08/22/23 Additional Instructions: cont reg dosing eat greens consistently call with any changes in medications warfarin 7.5 mg tablet 7.5 mg PO 2XW Hold Instructions: Doctor's Order Protocol: Dose Management Condition: Tuesday (Week One) Dose/Route: 7.5 mg Instruction: 1 x 7.5 mg tablet Condition: Tuesday Dose/Route: 10 mg Instruction: 2 x 5 mg tablets Condition: Tuesday Dose/Route: 7.5 mg Instruction: 1 x 7.5 mg tablet Condition: Tuesday Dose/Route: 7.5 mg Instruction: 1 x 7.5 mg tablet Condition: Dose/Route: 10 mg Instruction: 2 x 5 mg tablets Condition: Tuesday Dose/Route: 7.5 mg Instruction: 1 x 7.5 mg tablet Condition: Tuesday Dose/Route: 7.5 mg Instruction: 1 x 7.5 mg tablet Condition: Tuesday (Week Two) Dose/Route: 7.5 mg Instruction: 1 x 7.5 mg tablet Condition: Tuesday Dose/Route: 10 mg Instruction: 2 x 5 mg tablets Condition: Tuesday Dose/Route: 7.5 mg Instruction: 1 x 7.5 mg tablet Condition: Tuesday Dose/Route: 7.5 mg Instruction: 1 x 7.5 mg tablet Condition: Dose/Route: 10 mg Instruction: 2 x 5 mg tablets Condition: Tuesday Dose/Route: 7.5 mg Instruction: 1 x 7.5 mg tablet Condition: Tuesday Dose/Route: 7.5 mg Instruction: 1 x 7.5 mg tablet Protocol Text: Adjustment Start Date: Tuesday08/08/23 INR Value: 3.1 INR Date: 08/08/23 Recheck Date: 08/22/23 Additional Instructions: cont reg dosing eat greens consistently call with any changes in medications sennosides [senna] 8.6 mg Tablet 8.6 mg PO BEDTIME PRN (Reason: Constipation) trazodone 50 mg tablet 50 mg PO BEDTIME ferrous sulfate [Feosol] 325 mg (65 mg iron) tablet 325 mg PO Q OTHER DAY loratadine 10 mg tablet 10 mg PO DAILY ondansetron 4 mg tablet,disintegrating 8 mg PO Q12H PRN (Reason: nausea and vomiting) albuterol sulfate [ProAir HFA] 90 mcg/actuation HFA aerosol inhaler 2 puff inhalation Q4-6H PRN (Reason: Wheezing) buprenorphine-naloxone [Suboxone] 8-2 mg film 1 film sublingual BID acetaminophen [Tylenol Arthritis Pain] 650 mg tablet extended release 1,300 mg PO Q8H PRN (Reason: Pain) cholecalciferol (vitamin D3) 50 mcg (2,000 unit) capsule 50 mcg PO DAILY (DME) Raghav Ashraf [facility] Spacer See Rx Instructions .ROUTE .MEDSUPPLY Qty: 1 Rx Instructions: As directed ondansetron HCl 4 mg tablet 4 mg PO Q8H PRN (Reason: nausea/vomiting) amoxicillin 500 mg capsule 2,000 mg PO ONCE PRN polyethylene glycol 3350 [Miralax] 17 gram/dose powder 17 g PO DAILY atorvastatin 20 mg tablet 20 mg PO DAILY venlafaxine 37.5 mg capsule,extended release 24hr 37.5 mg PO DAILY Interventions: ED Discharge Assessment Last Done: 08/15/23 21:41 Discharge Date/Time: 08/15/23 21:42 Print Language: Croatian
[2023-08-15 21:30] VITALS: BP 118/66; PULSE 65; RESP 16; TEMP 36.6; O2SAT 98
--- NOTE | 2023-08-15 21:40 | PC.NURSE ---
provider into assess pt, Reviewed discharge instructions with pt. pt verbalized understanding, no sob or chest pain, pt able to speak clearly, no sign of distress upon discharge.
== END 2023-08-15 21:42 | disposition home or self-care (01) ==
PROVIDERS: Emergency Provider Internal Medicine
DX: J02.9 Acute pharyngitis, unspecified (principal); Z20.822 Contact with and (suspected) exposure to COVID-19; Z11.52 Encounter for screening for COVID-19
CPT/HCPCS: 0241U; 87651; 99283; 99284

== ENCOUNTER 2023-08-26 16:07 | Outpatient (AMB) | payer OTHER, SELFPAY ==
--- NOTE | 2023-08-26 16:25 | MHC.OFFVISCO ---
Intake Intake Visit Reasons: Anticoagulation Allergies hydrocodone [From VICODIN] Allergy (Unknown, Verified 08/26/23 16:09) GI UPSET Medication List - Last Reconciled 08/26/23 by Trinh Giron RN acetaminophen 325 mg PO QID PRN 7 days acetaminophen ER (Tylenol Arthritis Pain) 1,300 mg PO Q8H PRN albuterol sulfate 90 mcg/actuation (ProAir HFA) 2 puffs inhalation Q4-6H PRN amoxicillin 2,000 mg PO ONCE PRN atorvastatin 20 mg PO DAILY buprenorphine-naloxone 8-2 mg (Suboxone) 1 film sublingual BID cholecalciferol (vitamin D3) 50 mcg PO DAILY ferrous sulfate (Feosol) 325 mg PO Q OTHER DAY inhalational spacing device ([employer] [facility] spacer) As directed loratadine 10 mg PO DAILY ondansetron 8 mg PO Q12H PRN ondansetron HCl 4 mg PO Q8H PRN polyethylene glycol 3350 (Miralax) 17 grams PO DAILY sennosides (senna) 8.6 mg PO BEDTIME PRN trazodone 50 mg PO BEDTIME venlafaxine ER 37.5 mg PO DAILY warfarin 7.5 mg See Protocol PO 2XW warfarin 10 mg See Protocol PO 5XW Nursing Note NO CP,SOB,DIET/MED CHANGES,FALLS OR SX OF BLEEDING. CONTINUE PRESENT DOSE AND FOLLOW-UP IN 2 WEEKS. WILL BE SURE TO HAVE GREENS TODAY AND 2-3X WEEKLY. Anti-Coag Initial Assessment Social Hx Patient Tobacco Use Status: Former Tobacco user Tobacco use type: Cigarette alcohol intake: never Alcohol intake frequency: does not drink Coding Level of Care Code Est Patient Level 1 Diagnoses Current use of anticoagulant therapy Z79.01 Results AMB INR Fingerstick AMB INR Fingerstick 3.7 Last Edit by Trinh Giron RN on 08/26/23 16:16 Assessment & Plan Assessment & Plan (1) Current use of anticoagulant therapy: Code(s): Z79.01 - [facility] (current) use of anticoagulants
[2023-08-26 16:31] LABS: Prothrombin Time Whole Bld POC 44.6 sec (11.1-13.5); ~PT, ~INR - Anti Coag Clinic 3.7 (0.9-1.1)
== END 2023-08-26 16:26 | disposition home or self-care (01) ==
LOC: HO.ACS 16:07
PROVIDERS: Visit Provider Internal Medicine
DX: Z79.01 Long term (current) use of anticoagulants (principal)

== ENCOUNTER → 2023-08-26 16:07 | Outpatient (BNVA) | payer OTHER, SELFPAY | PROVIDERS: Visit Provider Internal Medicine | DX: Z95.2 Presence of prosthetic heart valve (principal); Z51.81 Encounter for therapeutic drug level monitoring; Z79.01 Long term (current) use of anticoagulants | CPT/HCPCS: 85610; 99211 ==

== ENCOUNTER 2023-09-14 15:28 | Outpatient (AMB) | payer OTHER, SELFPAY ==
--- NOTE | 2023-09-14 15:43 | MHC.OFFVISCO ---
Intake Intake Visit Reasons: Anticoagulation Allergies hydrocodone [From VICODIN] Allergy (Unknown, Verified 09/14/23 15:28) GI UPSET Medication List - Last Reconciled 09/14/23 by Trinh Giron RN acetaminophen 325 mg PO QID PRN 7 days acetaminophen ER (Tylenol Arthritis Pain) 1,300 mg PO Q8H PRN albuterol sulfate 90 mcg/actuation (ProAir HFA) 2 puffs inhalation Q4-6H PRN amoxicillin 2,000 mg PO ONCE PRN atorvastatin 20 mg PO DAILY buprenorphine-naloxone 8-2 mg (Suboxone) 1 film sublingual BID cholecalciferol (vitamin D3) 50 mcg PO DAILY ferrous sulfate (Feosol) 325 mg PO Q OTHER DAY inhalational spacing device ([facility] [employer] spacer) As directed loratadine 10 mg PO DAILY ondansetron 8 mg PO Q12H PRN ondansetron HCl 4 mg PO Q8H PRN polyethylene glycol 3350 (Miralax) 17 grams PO DAILY sennosides (senna) 8.6 mg PO BEDTIME PRN trazodone 50 mg PO BEDTIME venlafaxine ER 37.5 mg PO DAILY warfarin 7.5 mg See Protocol PO 2XW warfarin 10 mg See Protocol PO 5XW Nursing Note PT.DENIES ANY CP,SOB,DIET/MED CHANGES,FALLS OR SX OF BLEEDING. HOLD WARFARIN TODAY THYEN RESUME USUAL DOSE AND FOLLOW-UP IN 1 WEEK. PT.WILL BE CAREFUL WITH GREENS SO THAT INR WILL NOT DROP TOO LOW. GOOD UNDERSTANDING OF DOSING INSTR. Anti-Coag Initial Assessment Social Hx Patient Tobacco Use Status: Former Tobacco user Tobacco use type: Cigarette alcohol intake: never Alcohol intake frequency: does not drink Coding Level of Care Code Est Patient Level 1 Diagnoses Current use of anticoagulant therapy Z79.01 Results AMB INR Fingerstick AMB INR Fingerstick 4.7 Last Edit by Trinh Giron RN on 09/14/23 15:38 Assessment & Plan Assessment & Plan (1) Current use of anticoagulant therapy: Code(s): Z79.01 - [facility] (current) use of anticoagulants
[2023-09-15 07:13] LABS: ~PT, ~INR - Anti Coag Clinic 4.7 (0.9-1.1)
== END 2023-09-14 15:46 | disposition home or self-care (01) ==
LOC: HO.ACS 15:28
PROVIDERS: Visit Provider Internal Medicine
DX: Z79.01 Long term (current) use of anticoagulants (principal)

== ENCOUNTER → 2023-09-14 15:28 | Outpatient (BNVA) | payer OTHER, SELFPAY | PROVIDERS: Visit Provider Internal Medicine | DX: Z95.2 Presence of prosthetic heart valve (principal); Z79.01 Long term (current) use of anticoagulants; Z51.81 Encounter for therapeutic drug level monitoring | CPT/HCPCS: 85610; 99211 ==

== ENCOUNTER 2023-09-23 16:13 | Outpatient (AMB) | payer OTHER, SELFPAY ==
[2023-09-23 16:18] LABS: Prothrombin Time Whole Bld POC 49.3 sec (11.1-13.5); ~PT, ~INR - Anti Coag Clinic 4.1 (0.9-1.1)
--- NOTE | 2023-09-23 16:23 | MHC.OFFVISCO ---
Intake Intake Visit Reasons: Anticoagulation Allergies hydrocodone [From VICODIN] Allergy (Unknown, Verified 09/14/23 15:28) GI UPSET Nursing Note STOP SMOKING FOR 1 YEAR NOW INR 4.1? out of therapeutic range Medications and supplements reviewed Patient status: HAS NOT HAD USUAL GREENS , MOTHER IN LAW ILL GOING TO ER - Medications or supplements: NO CHANGES Diet: GOOD Denies any signs and symptoms of bleeding or clotting or unusual bruising Bleeding, bruising, clotting discussed Nutritional guidance given: COOKED GREENS LOWER THE INR MORE THAN RAW EAT COOKED GREENS WEEKLY Dose: HOLD TODAY THEN RESUME USUAL DOSE 10MG X 2 DAYS/ 7.5MG X 5 DAYS F/U INR Date : 10 DAYS?? Patient verbalizing understanding of instructions given. Anti-Coag Initial Assessment Social Hx Patient Tobacco Use Status: Former Tobacco user Tobacco use type: Cigarette alcohol intake: never Alcohol intake frequency: does not drink Coding Level of Care Code Est Patient Level 1 Diagnoses Current use of anticoagulant therapy Z79.01 Assessment & Plan Assessment & Plan (1) Current use of anticoagulant therapy: Code(s): Z79.01 - [facility] (current) use of anticoagulants
== END 2023-09-23 16:25 | disposition home or self-care (01) ==
LOC: HO.ACS 16:13
PROVIDERS: Visit Provider Internal Medicine
DX: Z79.01 Long term (current) use of anticoagulants (principal)

== ENCOUNTER → 2023-09-23 16:13 | Outpatient (BNVA) | payer OTHER, SELFPAY | PROVIDERS: Visit Provider Internal Medicine | DX: Z95.2 Presence of prosthetic heart valve (principal); Z79.01 Long term (current) use of anticoagulants; Z51.81 Encounter for therapeutic drug level monitoring | CPT/HCPCS: 85610; 99211 ==

== ENCOUNTER 2023-10-04 15:32 | Outpatient (AMB) | payer OTHER, SELFPAY ==
--- NOTE | 2023-10-04 15:38 | MHC.OFFVISCO ---
Intake Intake Visit Reasons: Anticoagulation Allergies hydrocodone [From VICODIN] Allergy (Unknown, Verified 10/04/23 15:33) GI UPSET Medication List - Last Reconciled 10/04/23 by Lindsay Couch RN acetaminophen 325 mg PO QID PRN 7 days acetaminophen ER (Tylenol Arthritis Pain) 1,300 mg PO Q8H PRN albuterol sulfate 90 mcg/actuation (ProAir HFA) 2 puffs inhalation Q4-6H PRN amoxicillin 2,000 mg PO ONCE PRN atorvastatin 20 mg PO DAILY buprenorphine-naloxone 8-2 mg (Suboxone) 1 film sublingual BID cholecalciferol (vitamin D3) 50 mcg PO DAILY ferrous sulfate (Feosol) 325 mg PO Q OTHER DAY inhalational spacing device ([facility] [employer] [facility] spacer) As directed loratadine 10 mg PO DAILY ondansetron 8 mg PO Q12H PRN ondansetron HCl 4 mg PO Q8H PRN polyethylene glycol 3350 (Miralax) 17 grams PO DAILY sennosides (senna) 8.6 mg PO BEDTIME PRN trazodone 50 mg PO BEDTIME venlafaxine ER 37.5 mg PO DAILY warfarin 7.5 mg See Protocol PO 2XW warfarin 10 mg See Protocol PO 5XW Nursing Note INR: 2.6- in therapeutic range of 2.5-3.5 pt states missed a dose of warfarin on tue10/01/23 and tue 09/27/23 Medications and supplements reviewed- no changes No changes in health, diet, medications, or supplements, Denies any signs and symptoms of bleeding or bruising or clotting. Bleeding, bruising, clotting discussed Nutritional guidance given Dose: 10mg x 1, 7.5mg x 6 F/U INR: 1 week Patient verbalizes understanding of instructions given Anti-Coag Initial Assessment Social Hx Patient Tobacco Use Status: Former Tobacco user Tobacco use type: Cigarette alcohol intake: never Alcohol intake frequency: does not drink Coding Level of Care Code Est Patient Level 1 Results AMB INR Fingerstick AMB INR Fingerstick 2.6 Last Edit by Lindsay Couch RN on 10/04/23 15:42
[2023-10-04 15:39] LABS: Prothrombin Time Whole Bld POC 31.5 sec (11.1-13.5); ~PT, ~INR - Anti Coag Clinic 2.6 (0.9-1.1)
== END 2023-10-04 15:47 | disposition home or self-care (01) ==
LOC: HO.ACS 15:32
PROVIDERS: PCP Registered Nurse; Visit Provider Internal Medicine
DX: Z79.01 Long term (current) use of anticoagulants (principal)

== ENCOUNTER → 2023-10-04 15:32 | Outpatient (BNVA) | payer OTHER, SELFPAY | PROVIDERS: PCP Registered Nurse; Visit Provider Internal Medicine | DX: Z95.2 Presence of prosthetic heart valve (principal); Z79.01 Long term (current) use of anticoagulants; Z51.81 Encounter for therapeutic drug level monitoring | CPT/HCPCS: 85610; 99211 ==

== ENCOUNTER 2023-10-21 15:00 | Outpatient (AMB) | payer OTHER, SELFPAY ==
[2023-10-21 15:09] LABS: Prothrombin Time Whole Bld POC 40.8 sec (11.1-13.5); ~PT, ~INR - Anti Coag Clinic 3.4 (0.9-1.1)
--- NOTE | 2023-10-21 15:18 | MHC.OFFVISCO ---
Intake Intake Visit Reasons: Anticoagulation Allergies hydrocodone [From VICODIN] Allergy (Unknown, Verified 10/21/23 15:01) GI UPSET Medication List - Last Reconciled 10/21/23 by Grace Mccloud RN acetaminophen 325 mg PO QID PRN 7 days acetaminophen ER (Tylenol Arthritis Pain) 1,300 mg PO Q8H PRN albuterol sulfate 90 mcg/actuation (ProAir HFA) 2 puffs inhalation Q4-6H PRN amoxicillin 2,000 mg PO ONCE PRN atorvastatin 20 mg PO DAILY buprenorphine-naloxone 8-2 mg (Suboxone) 1 film sublingual BID cholecalciferol (vitamin D3) 50 mcg PO DAILY ferrous sulfate (Feosol) 325 mg PO Q OTHER DAY hydroxyzine pamoate 25 mg PO TID inhalational spacing device ([facility] spacer) As directed loratadine 10 mg PO DAILY ondansetron 8 mg PO Q12H PRN ondansetron HCl 4 mg PO Q8H PRN polyethylene glycol 3350 (Miralax) 17 grams PO DAILY sennosides (senna) 8.6 mg PO BEDTIME PRN trazodone 50 mg PO BEDTIME venlafaxine ER 37.5 mg PO DAILY warfarin 7.5 mg See Protocol PO 2XW warfarin 10 mg See Protocol PO 5XW Nursing Note INR: 3.4 in therapeutic range Medications and supplements reviewed s/p covid / flu symptoms last week -his children had covid - took occ tyelnol -still feels tiered Denies any signs and symptoms of bleeding or bruising or clotting. 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
== END 2023-10-21 15:20 | disposition home or self-care (01) ==
LOC: HO.ACS 15:00
PROVIDERS: PCP Registered Nurse; Visit Provider Internal Medicine
DX: Z79.01 Long term (current) use of anticoagulants (principal)

== ENCOUNTER → 2023-10-21 15:00 | Outpatient (BNVA) | payer OTHER, SELFPAY | PROVIDERS: PCP Registered Nurse; Visit Provider Internal Medicine | DX: Z95.2 Presence of prosthetic heart valve (principal); Z79.01 Long term (current) use of anticoagulants; Z51.81 Encounter for therapeutic drug level monitoring | CPT/HCPCS: 85610; 99211 ==

== ENCOUNTER 2023-11-17 15:01 | Outpatient (AMB) | payer OTHER, SELFPAY ==
--- NOTE | 2023-11-17 15:06 | MHC.OFFVISCO ---
Intake Intake Visit Reasons: Anticoagulation Allergies hydrocodone [From VICODIN] Allergy (Unknown, Verified 11/17/23 15:01) GI UPSET Medication List - Last Reconciled 11/17/23 by Lindsay Couch RN acetaminophen 325 mg PO QID PRN 7 days acetaminophen ER (Tylenol Arthritis Pain) 1,300 mg PO Q8H PRN albuterol sulfate 90 mcg/actuation (ProAir HFA) 2 puffs inhalation Q4-6H PRN amoxicillin 2,000 mg PO ONCE PRN atorvastatin 20 mg PO DAILY buprenorphine-naloxone 8-2 mg (Suboxone) 1 film sublingual BID cholecalciferol (vitamin D3) 50 mcg PO DAILY ferrous sulfate (Feosol) 325 mg PO Q OTHER DAY hydroxyzine pamoate 25 mg PO TID inhalational spacing device ([facility] spacer) As directed loratadine 10 mg PO DAILY ondansetron 8 mg PO Q12H PRN ondansetron HCl 4 mg PO Q8H PRN polyethylene glycol 3350 (Miralax) 17 grams PO DAILY sennosides (senna) 8.6 mg PO BEDTIME PRN trazodone 50 mg PO BEDTIME venlafaxine ER 37.5 mg PO DAILY warfarin 7.5 mg See Protocol PO 2XW warfarin 10 mg See Protocol PO 5XW Nursing Note INR 4.0 out of therapeutic range of 2.5-3.5 Medications and supplements reviewed Patient status: pt states forgetful, he feels he may have missed 3 doses last week, he states crosses date off when he takes the warfarin- he states he has crossed the date off and not taken the warfarin prev., could also forget to cross the date and take the warfarin, pill box encouraged to verify he has taken the dose- he states s/o has pill box at home and he will use it Medications or supplements: no changes Diet: same Denies any signs and symptoms of bleeding or clotting or unusual bruising Bleeding, bruising, clotting discussed Nutritional guidance given: eat greens for 2 days, no reds for 2-3 days Dose: reduce dose today to 5mg warfarin and reduce weekly dosing to 7.5mg daily F/U INR Date : 1 week? Patient verbalizing understanding of instructions given. 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
[2023-11-18 08:53] LABS: Prothrombin Time Whole Bld POC 47.5 sec (11.1-13.5)
== END 2023-11-17 15:24 | disposition home or self-care (01) ==
LOC: HO.ACS 15:01
PROVIDERS: PCP Registered Nurse; Visit Provider Internal Medicine
DX: Z79.01 Long term (current) use of anticoagulants (principal)

== ENCOUNTER → 2023-11-17 15:01 | Outpatient (BNVA) | payer OTHER, SELFPAY | PROVIDERS: PCP Registered Nurse; Visit Provider Internal Medicine | DX: Z95.2 Presence of prosthetic heart valve (principal); Z79.01 Long term (current) use of anticoagulants; Z51.81 Encounter for therapeutic drug level monitoring | CPT/HCPCS: 85610; 99211 ==

== ENCOUNTER 2023-11-20 15:37 | Emergency (ER) | payer OTHER, SELFPAY ==
[2023-11-20 15:46] VITALS: BP 140/98; PULSE 95; O2SAT 97
== END 2023-11-20 16:44 | disposition left against medical advice (07) ==
PROVIDERS: Emergency Provider Emergency Medicine
DX: R10.9 Unspecified abdominal pain (principal); Z53.21 Procedure and treatment not carried out due to patient leaving prior to being seen by health care provider

== ENCOUNTER 2023-11-20 17:47 | Emergency (ER) | payer OTHER, SELFPAY ==
--- NOTE | 2023-11-20 17:59 | ED_ITS ---
HPI - Abdominal Pain General Chief Complaint: Abdominal Pain Stated Complaint: ABD PAIN,NAUSEA,VOMITING PER EMS Time Seen by Provider: 11/21/23 01:33 Source: patient Mode of arrival: ambulatory Limitations: no limitations History of Present Illness HPI narrative: 38-year-old male with a history of asthma, mechanical mitral valve on warfarin, stroke with right-sided weakness who presents emergency department for evaluation of nausea, vomiting abdominal pain. Patient states the pain started at 14:00 hours. Points to his umbilical area when asked to localize the pain. He describes the pain is a constant, ripping pain which is greater than 10/10. Patient states he has had similar pain in June and July [address] scans which were unremarkable. He denied fever, sore throat, cough, chest pain, shortness of breath, or diarrhea. He states he has had chills and has had nausea and vomiting. Related Data Home Medications Medication Instructions Recorded Confirmed trazodone 50 mg tablet 50 mg PO BEDTIME 02/11/21 10/21/23 acetaminophen 650 mg 1,300 mg PO Q8H PRN Pain 09/24/22 10/21/23 tablet,extended release (Tylenol Arthritis Pain) albuterol sulfate 90 mcg/actuation 2 puff inhalation Q4-6H PRN 09/24/22 10/21/23 aerosol inhaler (ProAir HFA) Wheezing buprenorphine 8 mg-naloxone 2 mg 1 film sublingual BID 09/24/22 10/21/23 sublingual film (Suboxone) cholecalciferol (vitamin D3) 50 50 mcg PO DAILY 09/24/22 10/21/23 mcg (2,000 unit) capsule ferrous sulfate 325 mg (65 mg 325 mg PO Q OTHER DAY 09/24/22 10/21/23 iron) tablet (Feosol) loratadine 10 mg tablet 10 mg PO DAILY 09/24/22 10/21/23 ondansetron 4 mg disintegrating 8 mg PO Q12H PRN nausea and 09/24/22 10/21/23 tablet vomiting inhalational spacing device #1 ea 09/29/22 10/21/23 (Raghav Ashraf [facility] spacer) ondansetron HCl 4 mg tablet 4 mg PO Q8H PRN nausea/vomiting 09/29/22 10/21/23 sennosides 8.6 mg tablet (senna) 8.6 mg PO BEDTIME PRN Constipation 11/03/22 10/21/23 amoxicillin 500 mg capsule 2,000 mg PO ONCE PRN 02/16/23 10/21/23 polyethylene glycol 3350 17 17 g PO DAILY 04/08/23 10/21/23 gram/dose oral powder (Miralax) warfarin 5 mg tablet 10 mg PO 5XW 04/21/23 11/17/23 warfarin 7.5 mg tablet 7.5 mg PO 2XW 04/21/23 11/17/23 atorvastatin 20 mg tablet 20 mg PO DAILY 06/08/23 10/21/23 venlafaxine 37.5 mg 37.5 mg PO DAILY 06/08/23 10/21/23 capsule,extended release 24 hr hydroxyzine pamoate 25 mg capsule 25 mg PO TID 10/21/23 10/21/23 Previous Rx's Medication Instructions Recorded acetaminophen 325 mg capsule 325 mg PO QID PRN pain 7 days #28 08/15/23 caps ondansetron 4 mg disintegrating 4 mg PO Q6-8H PRN nausea and 11/21/23 tablet vomiting #14 tabs Allergies Allergy/AdvReac Type Severity Reaction Status Date / Time hydrocodone [From VICODIN] Allergy Unknown GI UPSET Verified 11/20/23 18:01 Review of Systems Review of Systems Yes all other systems are reviewed and are negative [facility] Past Medical History [facility] Narrative: Past medical history: Asthma, stroke with right-sided residual weakness, 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 Social history: He denies tobacco, alcohol and drug use. Onset Date is defined in the Problem List Problems that require an onset date and time if occurred within 24 hrs of arrival to the ED Aortic Dissection and Rupture; Neurologic impairment; Cardiopulmonary Arrest; Endotracheal Intubation; Insertion or Replacement of Mechanical Circulatory Assist Device Medical History Anticoagulant causing adverse effect in therapeutic use CVA (cerebrovascular accident due to intracerebral hemorrhage) Endocarditis of prosthetic mitral valve SIRS (systemic inflammatory response syndrome) Myalgia Opioid use disorder Fracture of proximal end of humerus Asthma Current use of anticoagulant therapy Surgical History History of heart valve replacement with mechanical valve Heart valve replaced Presence of other heart-valve replacement Family History Family History Father Diabetes Mother H/O thyroid disease Social History Social History Household Members: Family Housing: Apartment Do you presently have visiting nurse or other home services: No Alcohol intake: never Patient Tobacco Use Status: Former Tobacco user Tobacco use type: Cigarette Smoked in Last 30 Days: No Use of substances other than those prescribed or required for medical reasons: No Substance Use Type: Other Advance Directives: No Advance Directives Information Provided: No service: No Current occupational status: unemployed 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 Physical Exam ED Vital Signs: Vital Signs - 24 hr 11/20/23 18:01 11/20/23 21:07 11/21/23 02:06 Temperature 97.6 F 99.0 F 98.1 F Pulse Rate 74 80 75 Respiratory Rate 76 H 14 16 Blood Pressure 128/78 131/67 132/71 Pulse Oximetry 96 99 100 Oxygen Delivery Method Room Air Room Air Room Air 11/21/23 03:44 Temperature 98.5 F Pulse Rate 90 Respiratory Rate 18 Blood Pressure 144/80 H Pulse Oximetry 98 Oxygen Delivery Method Room Air BMI result Body Mass Index 28.7 Vital signs were normal Exam: General: Awake, alert in no distress Head: Normocephalic, atraumatic EENT: PERRL, Lids normal, sclera normal, conjunctiva normal, nose normal , ears normal, throat without erythema or exudates Neck: Supple, no adenopathy, no trachea midline or C-spine tenderness Lung: breath sounds symmetric, no wheezing, rales or rhonchi Chest: symmetric movement, nontender Heart: regular rate and rhythm, normal mechanical S1, S2 no murmurs or rubs Abdomen: soft, moderate periumbilical tenderness, normoactive bowel sounds, no right lower quadrant tenderness Back: no vertebral tenderness, no CVAT Extremities: no deformities, moves all extremities symmetrically Neuro: Awake, alert, oriented, normal speech, cranial nerves intact, moves all extremities symmetrically Psych: Pleasant, cooperative Course Course Course Narrative: This is an RME: Additional HPI, ROS, PE not included below will be deferred to primary provider. This is a [id number], Medical Decision Making Medical Decision Making [facility] Narrative: 38-year-old male with a history of asthma, mechanical mitral valve on warfarin, stroke with right-sided weakness who presents emergency department for evaluation of nausea, vomiting abdominal pain which started at 14:00 hours, pain is been constant located in the periumbilical area. Patient had associated nausea and vomiting. Patient has had similar pain last year in June since July and had negative CT scan of the abdomen pelvis x2. Vital signs were normal. Exam did reveal periumbilical tenderness with no right lower quadrant tenderness. Following evaluation was ordered: CBC, CMP, lipase, COVID-19, influenza, PT/INR. Patient was treated with following: Normal saline x1 L, morphine 4 mg IV x2 and Zofran 4 mg IV 03:31 My interpretation patient's laboratory evaluation is as follows: CBC was normal. CMP revealed an elevated ALT 42 elevated alk-phos 120 otherwise unremarkable. Lipase was normal. COVID-19 influenza were negative. INR was therapeutic at 2.6. Patient did get some improvement with above treatment. Repeat abdominal exam revealed epigastric tenderness again with no right lower quadrant tenderness. Patient was treated with Maalox 30 cc and viscous lidocaine 10 cc orally. 04:48 Patient is feeling better will be discharged home. Differential Diagnosis Differential Diagnoses: The differential diagnosis associated with the presentation includes Differential diagnosis includes was not limited to gastritis, pancreatitis, appendicitis, viral syndrome Admission/Observation Consideration of admission/observation: Escalation of care including admission/observation considered Lab Data MDM Lab Attestation statement: I reviewed the patient's lab results. 11/20/23 21:27 11/20/23 21:27 Labs: Lab Results 11/20/23 11/21/23 Range/Units 21:27 02:34 WBC 10.6 (4.8-10.8) X10*3/uL RBC 5.72 (4.60-5.80) X10*6/uL Hgb 14.6 (14.0-18.0) g/dl Hct 46.0 (42.0-52.0) % MCV 80.4 (80.0-98.0) fL MCH 25.5 L (27.0-33.0) pg MCHC 31.7 (31.0-36.0) g/dl RDW 13.4 (11.0-16.0) % Plt Count 329 (160-400) X10*3/uL MPV 10.9 (9.4-12.4) fL Immature Gran % (Auto) 0.3 (0.0-0.4) % Neut % (Auto) 87.5 H (45-73) % Lymph % (Auto) 8.5 L (20-40) % [place] % (Auto) 3.5 (2-11) % Eos % (Auto) 0.1 (0-4) % Baso % (Auto) 0.1 (0-2) % Lymph # (Auto) 0.9 L (1.2-4.9) X10*3/uL [place] # (Auto) 0.4 (0.1-1.2) X10*3/uL Eos # (Auto) 0.0 (0.0-0.4) X10*3/uL Baso # (Auto) 0.0 (0.0-0.2) X10*3/uL Abs Immat Gran (auto) 0.03 (0.00-0.03) X10*3/uL Absolute Neuts (auto) 9.3 H (2.0-8.3) x10*3/uL Absolute Nucleated RBC 0.000 (0.0-0.012) X10*3/uL Nucleated RBC % (auto) 0.0 (0.0-0.2) /100WBC PT 31.8 H D (11.1-13.3) SEC INR 2.6 H (0.9-1.1) Sodium 139 (135-145) mmol/L Potassium 4.5 (3.3-5.1) mmol/L Chloride 103 (96-108) mmol/L Carbon Dioxide 28 (22-29) mmol/L Anion Gap 13 (12-20) BUN 15 (9-16) mg/dL Creatinine 1.09 (0.5-1.4) mg/dL Estim Creat Clear Calc 120.1 Estimated GFR > 60 Random Glucose 106 (60-115) mg/dL Calcium 9.6 (8.4-10.2) mg/dL Magnesium 2.1 (1.6-2.6) mg/dL Total Bilirubin 0.4 (0.0-1.0) mg/dL Direct Bilirubin 0.1 (0.0-0.5) mg/dL AST 27 (5-37) U/L ALT 42 H (0-40) U/L Alkaline Phosphatase 120 H (39-117) U/L Total Protein 8.5 H (6.5-8.0) g/dL Albumin 4.6 (3.5-5.0) g/dL Lipase 13 (8-78) U/L Urine Color Yellow Urine Appearance Clear Urine pH 7.0 (5.0-9.0) Ur Specific [place] 1.025 (1.005-1.025) Urine Protein Negative (Neg-Trace) mg/dL Urine Glucose (UA) Negative (Negative) mg/dL Urine Ketones Negative (Negative) mg/dL Urine Blood Negative (Negative) Urine Nitrite Negative (Negative) Ur Leukocyte Esterase Negative (Negative) COVID-19 ([facility]) Negative (Negative) COVID-19 Clin Com See Note Influenza Type A (FRACISCO) Negative (Negative) Influenza Type B (FRACISCO) Negative (Negative) Influenza A & B Note N Independent Historian Clinical information obtained from an independent historian. History obtained from or confirmed by: Parent Chronic Conditions Patient?s care impacted by: Other (Mechanical mitral valve) Medications Administered Discontinued Medications Generic Name Dose Route Start Last Admin Trade Name Freq PRN Reason Stop Dose Admin Al Hydroxide/Mg Hydroxide 30 ml 11/21/23 03:30 11/21/23 03:40 Magnesium Hydrox/Alum Hydrox 30 Ml Oral.Susp PO 11/21/23 03:31 30 ml ONCE STA Administration Sodium Chloride 1,000 mls @ 999 mls/hr 11/21/23 01:46 11/21/23 04:22 Ns IV 11/21/23 02:46 Infused .Q1H1M STA Infusion Lidocaine HCl 10 ml 11/21/23 03:30 11/21/23 03:40 Lidocaine Hcl Viscous 2 % 15 Ml Solution PO 11/21/23 03:31 10 ml ONCE ONE Administration Morphine Sulfate 4 mg 11/21/23 01:46 11/21/23 02:34 Morphine Sulfate 4 Mg/Ml Cartridge IVPUSH 11/21/23 01:47 4 mg ONCE STA Administration Protocol Ondansetron HCl 4 mg 11/21/23 01:46 11/21/23 02:34 Ondansetron Hcl 4 Mg/2 Ml Vial IVPUSH 11/21/23 01:47 4 mg ONCE ONE Administration Discharge Plan Discharge Clinical Impression: Abdominal pain Qualifiers: Abdominal location: epigastric Qualified Code(s): R10.13 - Epigastric pain Patient Disposition: Home, Self-Care Instructions: Abdominal Pain (ED) Additional Instructions: Your blood work was unremarkable. Your COVID-19 and influenza tests were negative. Your INR was 2.6 which is within the therapeutic range (2.0-3.5). Take Zofran ODT 4 mg pills, 1 pill dissolved in your mouth every 8 hours as needed for nausea and vomiting. Take Maalox 30 cc 4 times a day as needed for heartburn symptoms. Follow-up with your doctor in 2 days. Please return to the emergency department if your symptoms get worse or if you develop any symptoms that are concerning to you. Prescriptions: New ondansetron 4 mg tablet,disintegrating 4 mg PO Q6-8H PRN (Reason: nausea and vomiting) Qty: 14 0RF No Action warfarin 5 mg tablet 10 mg PO 5XW Hold Instructions: Doctor's Order Protocol: Dose Management Condition: Tuesday (Week One) Dose/Route: 7.5 mg Instruction: 1 x 7.5 mg tablet Condition: Tuesday Dose/Route: 10 mg Instruction: 2 x 5 mg tablets Condition: Tuesday Dose/Route: 7.5 mg Instruction: 1 x 7.5 mg tablet Condition: Tuesday Dose/Route: 7.5 mg Instruction: 1 x 7.5 mg tablet Condition: Dose/Route: 5 mg Instruction: 1 x 5 mg tablet Condition: Tuesday Dose/Route: 7.5 mg Instruction: 1 x 7.5 mg tablet Condition: Tuesday Dose/Route: 7.5 mg Instruction: 1 x 7.5 mg tablet Condition: Tuesday (Week Two) Dose/Route: 7.5 mg Instruction: 1 x 7.5 mg tablet Condition: Tuesday Dose/Route: 7.5 mg Instruction: 1 x 7.5 mg tablet Condition: Tuesday Dose/Route: 7.5 mg Instruction: 1 x 7.5 mg tablet Condition: Tuesday Dose/Route: 7.5 mg Instruction: 1 x 7.5 mg tablet Condition: Dose/Route: 7.5 mg Instruction: 1 x 7.5 mg tablet Condition: Tuesday Dose/Route: 7.5 mg Instruction: 1 x 7.5 mg tablet Condition: Tuesday Dose/Route: 7.5 mg Instruction: 1 x 7.5 mg tablet Protocol Text: Adjustment Start Date: 11/17/23 INR Value: 4.0 INR Date: 11/17/23 Recheck Date: 11/24/23 Additional Instructions: take 5mg today then 7.5mg daily eat greens today and tomm, no reds for 2 days warfarin 7.5 mg tablet 7.5 mg PO 2XW Hold Instructions: Doctor's Order Protocol: Dose Management Condition: Tuesday (Week One) Dose/Route: 7.5 mg Instruction: 1 x 7.5 mg tablet Condition: Tuesday Dose/Route: 10 mg Instruction: 2 x 5 mg tablets Condition: Tuesday Dose/Route: 7.5 mg Instruction: 1 x 7.5 mg tablet Condition: Tuesday Dose/Route: 7.5 mg Instruction: 1 x 7.5 mg tablet Condition: Dose/Route: 5 mg Instruction: 1 x 5 mg tablet Condition: Tuesday Dose/Route: 7.5 mg Instruction: 1 x 7.5 mg tablet Condition: Tuesday Dose/Route: 7.5 mg Instruction: 1 x 7.5 mg tablet Condition: Tuesday (Week Two) Dose/Route: 7.5 mg Instruction: 1 x 7.5 mg tablet Condition: Tuesday Dose/Route: 7.5 mg Instruction: 1 x 7.5 mg tablet Condition: Tuesday Dose/Route: 7.5 mg Instruction: 1 x 7.5 mg tablet Condition: Tuesday Dose/Route: 7.5 mg Instruction: 1 x 7.5 mg tablet Condition: Dose/Route: 7.5 mg Instruction: 1 x 7.5 mg tablet Condition: Tuesday Dose/Route: 7.5 mg Instruction: 1 x 7.5 mg tablet Condition: Tuesday Dose/Route: 7.5 mg Instruction: 1 x 7.5 mg tablet Protocol Text: Adjustment Start Date: 11/17/23 INR Value: 4.0 INR Date: 11/17/23 Recheck Date: 11/24/23 Additional Instructions: take 5mg today then 7.5mg daily eat greens today and tomm, no reds for 2 days sennosides [senna] 8.6 mg Tablet 8.6 mg PO BEDTIME PRN (Reason: Constipation) acetaminophen 325 mg capsule 325 mg PO QID PRN (Reason: pain) 7 Days Qty: 28 0RF trazodone 50 mg tablet 50 mg PO BEDTIME ferrous sulfate [Feosol] 325 mg (65 mg iron) tablet 325 mg PO Q OTHER DAY loratadine 10 mg tablet 10 mg PO DAILY ondansetron 4 mg tablet,disintegrating 8 mg PO Q12H PRN (Reason: nausea and vomiting) albuterol sulfate [ProAir HFA] 90 mcg/actuation HFA aerosol inhaler 2 puff inhalation Q4-6H PRN (Reason: Wheezing) buprenorphine-naloxone [Suboxone] 8-2 mg film 1 film sublingual BID acetaminophen [Tylenol Arthritis Pain] 650 mg tablet extended release 1,300 mg PO Q8H PRN (Reason: Pain) cholecalciferol (vitamin D3) 50 mcg (2,000 unit) capsule 50 mcg PO DAILY (DME) Raghav Ashraf [facility] Spacer See Rx Instructions .ROUTE .MEDSUPPLY Qty: 1 Rx Instructions: As directed ondansetron HCl 4 mg tablet 4 mg PO Q8H PRN (Reason: nausea/vomiting) amoxicillin 500 mg capsule 2,000 mg PO ONCE PRN polyethylene glycol 3350 [Miralax] 17 gram/dose powder 17 g PO DAILY atorvastatin 20 mg tablet 20 mg PO DAILY venlafaxine 37.5 mg capsule,extended release 24hr 37.5 mg PO DAILY hydroxyzine pamoate 25 mg capsule 25 mg PO TID
[2023-11-20 18:01] VITALS: BP 128/78; BP 166/114; PULSE 74; PULSE 87; RESP 76; TEMP 36.4; O2SAT 96; O2SAT 98; BMI 28.7
[2023-11-20 21:07] VITALS: BP 131/67; PULSE 80; RESP 14; TEMP 37.2; O2SAT 99
[2023-11-20 21:32] LABS: MANUAL DIFF FLAG NO
[2023-11-20 21:34] LABS: Basophils Percent Auto 0.1 % (0-2); Eosinophils Percent Auto 0.1 % (0-4); Hemoglobin 14.6 g/dl (14.0-18.0); Imm Gran Abs Auto 0.03 X10*3/uL (0.00-0.03); Imm Gran Pct Auto 0.3 % (0.0-0.4); Lymphocytes Absolute Auto 0.9 X10*3/uL (1.2-4.9); Lymphocytes Percent Auto 8.5 % (20-40); Mean Corpuscular HGB Conc 31.7 g/dl (31.0-36.0); Mean Corpuscular Hemoglobin 25.5 pg (27.0-33.0); Mean Corpuscular Volume 80.4 fL (80.0-98.0); Mean Platelet Volume 10.9 fL (9.4-12.4); Monocytes Absolute Auto 0.4 X10*3/uL (0.1-1.2); Monocytes Percent Auto 3.5 % (2-11); Neutrophils Absolute Auto 9.3 x10*3/uL (2.0-8.3); Neutrophils Percent Auto 87.5 % (45-73); Platelet Count 329 X10*3/uL (160-400); Red Blood Count 5.72 X10*6/uL (4.60-5.80); Red Cell Distribution Width 13.4 % (11.0-16.0); White Blood Count 10.6 X10*3/uL (4.8-10.8)
[2023-11-20 21:52] LABS: COVID-19 Test Negative (Negative); IDNOW Serial# 152EDE1D
[2023-11-20 21:53] LABS: IDNOW Serial# 9DB6401D; Influenza A Negative (Negative); Influenza A & B2 Note N; Influenza B2 Negative (Negative)
[2023-11-20 21:54] LABS: Alanine Aminotransferase 42 U/L (0-40); Albumin Level 4.6 g/dL (3.5-5.0); Alkaline Phosphatase 120 U/L (39-117); Anion Gap 13 (12-20); Aspartate Amino Transferase 27 U/L (5-37); Bilirubin Direct 0.1 mg/dL (0.0-0.5); Bilirubin Total 0.4 mg/dL (0.0-1.0); Blood Urea Nitrogen 15 mg/dL (9-16); Calcium 9.6 mg/dL (8.4-10.2); Carbon Dioxide 28 mmol/L (22-29); Chloride 103 mmol/L (96-108); Creatinine Clr Calc Pharmacy 120.1; Estimated Glomerular Filt Rate > 60; Glucose Random 106 mg/dL (60-115); Lipase 13 U/L (8-78); Magnesium 2.1 mg/dL (1.6-2.6); Potassium 4.5 mmol/L (3.3-5.1); Sodium 139 mmol/L (135-145); Total Protein 8.5 g/dL (6.5-8.0)
[2023-11-21 02:06] VITALS: BP 132/71; PULSE 75; RESP 16; TEMP 36.7; O2SAT 100
[2023-11-21] MEDS: Morphine Sulfate 4 MG/ML CARTRIDGE IVPUSH ×2 (02:34→04:53)
[2023-11-21] MEDS: ondansetron HCL 4 MG/2 ML VIAL IVPUSH (02:34)
[2023-11-21] MEDS: 0.9 % Sodium Chloride 1,000 ML 999 ML IV (02:35)
[2023-11-21 02:49] LABS: Appearance Urine Clear; Color Urine Yellow; Glucose Urine UA Negative (Negative); Leukocyte Esterase Urine Negative (Negative); Nitrite Urine Negative (Negative); Specific Gravity - Urine 1.025 (1.005-1.025); Urine Blood Negative (Negative); Urine Ketones Negative (Negative); Urine Protein Negative (Neg-Trace)
[2023-11-21 02:54] LABS: INTERNATIONAL NORM RATIO 2.6 (0.9-1.1); Prothrombin Time 31.8 SEC (11.1-13.3)
[2023-11-21] MEDS: Lidocaine HCl Viscous 2 % 15 ML SOLUTION 10 ML PO (03:40)
[2023-11-21] MEDS: Magnesium Hydrox/Alum Hydrox 30 ML ORAL.SUSP PO (03:40)
[2023-11-21 03:44] VITALS: BP 144/80; PULSE 90; RESP 18; TEMP 36.9; O2SAT 98
[2023-11-21 04:53] VITALS: BP 116/61; PULSE 74; RESP 16; TEMP 37; O2SAT 99
== END 2023-11-21 05:02 | disposition home or self-care (01) ==
PROVIDERS: Physician Assistant Medical; Emergency Provider Emergency Medicine Emergency Medical Services
DX: R10.13 Epigastric pain (principal); R11.2 Nausea with vomiting, unspecified; Z79.01 Long term (current) use of anticoagulants; Z11.52 Encounter for screening for COVID-19; Z79.899 Other long term (current) drug therapy
CPT/HCPCS: 36415; 80048; 80076; 81003; 83690; 83735; 85025; 85610; 87502; 87635; 96361; 96374; 96375; 96376; 99284; J2270; J2405

== ENCOUNTER 2023-11-24 14:58 | Outpatient (AMB) | payer OTHER, SELFPAY ==
[2023-11-24 15:08] LABS: Prothrombin Time Whole Bld POC 31.8 sec (11.1-13.5); ~PT, ~INR - Anti Coag Clinic 2.6 (0.9-1.1)
--- NOTE | 2023-11-24 15:12 | MHC.OFFVISCO ---
Intake Intake Visit Reasons: Anticoagulation Allergies hydrocodone [From VICODIN] Allergy (Unknown, Verified 11/24/23 14:59) GI UPSET Medication List - Last Reconciled 11/24/23 by Grace Mccloud RN acetaminophen 325 mg PO QID PRN 7 days acetaminophen ER (Tylenol Arthritis Pain) 1,300 mg PO Q8H PRN albuterol sulfate 90 mcg/actuation (ProAir HFA) 2 puffs inhalation Q4-6H PRN amoxicillin 2,000 mg PO ONCE PRN atorvastatin 20 mg PO DAILY buprenorphine-naloxone 8-2 mg (Suboxone) 1 film sublingual BID cholecalciferol (vitamin D3) 50 mcg PO DAILY ferrous sulfate (Feosol) 325 mg PO Q OTHER DAY hydroxyzine pamoate 25 mg PO TID inhalational spacing device ([facility] spacer) As directed loratadine 10 mg PO DAILY ondansetron 4 mg PO Q6-8H PRN ondansetron 8 mg PO Q12H PRN ondansetron HCl 4 mg PO Q8H PRN polyethylene glycol 3350 (Miralax) 17 grams PO DAILY sennosides (senna) 8.6 mg PO BEDTIME PRN trazodone 50 mg PO BEDTIME warfarin 7.5 mg See Protocol PO 2XW warfarin 10 mg See Protocol PO 5XW Nursing Note INR: 2.6 in therapeutic range Medications and supplements reviewed No changes in health, diet, medications, or supplements, Denies any signs and symptoms of bleeding or bruising or clotting. 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
== END 2023-11-24 15:14 | disposition home or self-care (01) ==
LOC: HO.ACS 14:58
PROVIDERS: Visit Provider Internal Medicine
DX: Z79.01 Long term (current) use of anticoagulants (principal)

== ENCOUNTER → 2023-11-24 14:58 | Outpatient (BNVA) | payer OTHER, SELFPAY | PROVIDERS: Visit Provider Internal Medicine | DX: Z95.2 Presence of prosthetic heart valve (principal); Z79.01 Long term (current) use of anticoagulants; Z51.81 Encounter for therapeutic drug level monitoring | CPT/HCPCS: 85610; 99211 ==

== ENCOUNTER 2023-12-16 14:59 | Outpatient (AMB) | payer OTHER, SELFPAY ==
[2023-12-16 15:15] LABS: Prothrombin Time Whole Bld POC 55.2 sec (11.1-13.5); ~PT, ~INR - Anti Coag Clinic 4.6 (0.9-1.1)
--- NOTE | 2023-12-16 15:18 | MHC.OFFVISCO ---
Intake Intake Visit Reasons: Anticoagulation Allergies hydrocodone [From VICODIN] Allergy (Unknown, Verified 12/16/23 15:09) GI UPSET Medication List - Last Reconciled 12/16/23 by Grace Mccloud RN acetaminophen 325 mg PO QID PRN 7 days acetaminophen ER (Tylenol Arthritis Pain) 1,300 mg PO Q8H PRN albuterol sulfate 90 mcg/actuation (ProAir HFA) 2 puffs inhalation Q4-6H PRN amoxicillin 2,000 mg PO ONCE PRN atorvastatin 20 mg PO DAILY blood pressure test kit-large As directed buprenorphine-naloxone 8-2 mg (Suboxone) 1 film sublingual BID cholecalciferol (vitamin D3) 50 mcg PO DAILY ferrous sulfate (Feosol) 325 mg PO Q OTHER DAY hydroxyzine pamoate 25 mg PO TID inhalational spacing device ([employer] Pasc[employer] [facility] spacer) As directed loratadine 10 mg PO DAILY ondansetron 4 mg PO Q6-8H PRN ondansetron 8 mg PO Q12H PRN ondansetron HCl 4 mg PO Q8H PRN polyethylene glycol 3350 (Miralax) 17 grams PO DAILY sennosides (senna) 8.6 mg PO BEDTIME PRN trazodone 50 mg PO BEDTIME warfarin 7.5 mg See Protocol PO 2XW warfarin 10 mg See Protocol PO 5XW Nursing Note INR 4.6?? out of therapeutic range Medications and supplements reviewed Patient status: HAS NOT HAD USUAL GREENS, R/S APPT A FEW TIMES, B/P CUFF TO [facility] B/P AT HOME DIFFERENT IN EACH ARM PER PT - ENC TO DISCUSS WITH MD Medications or supplements: NO CHANGES Diet: GOOD Denies any signs and symptoms of bleeding or clotting or unusual bruising Bleeding, bruising, clotting discussed Nutritional guidance given: REVIEW FOOD LIST WEEKLY - EAT GREENS TODAY Dose: HOLD TODAY'S DOSE THEN RESUME 7.5MG DAILY F/U INR Date : 1 WEEK ?? ENC TO GO TO ER WITH ANY UNUSUAL BLEEDING OR BRUISING , ALSO, PTSTATES HAS BAD TASTE IN MOUTH MAY HAVE TONSIL STONES, MAY HAVE HAD RSV VIRUS- OCC BLOOD TINGED SPUTUM - GOING TO HAVE ENT APPT GARGELING TID Patient verbalizing understanding of instructions given. Anti-Coag Initial Assessment Social Hx Patient Tobacco Use Status: Former Tobacco user Tobacco use type: Cigarette alcohol intake: never Alcohol intake frequency: does not drink Coding Level of Care Code Est Patient Level 1 Diagnoses Current use of anticoagulant therapy Z79.01 Results AMB INR Fingerstick AMB INR Fingerstick 4.6 Last Edit by Grace Mccloud RN on 12/16/23 15:16 manual entry failed interfacing Assessment & Plan Assessment & Plan (1) Current use of anticoagulant therapy: Code(s): Z79.01 - half-way (current) use of anticoagulants
== END 2023-12-16 15:25 | disposition home or self-care (01) ==
LOC: HO.ACS 14:59
PROVIDERS: Visit Provider Internal Medicine
DX: Z79.01 Long term (current) use of anticoagulants (principal)

== ENCOUNTER → 2023-12-16 14:59 | Outpatient (BNVA) | payer OTHER, SELFPAY | PROVIDERS: Visit Provider Internal Medicine | DX: Z95.2 Presence of prosthetic heart valve (principal); Z79.01 Long term (current) use of anticoagulants; Z51.81 Encounter for therapeutic drug level monitoring | CPT/HCPCS: 85610; 99211 ==

== ENCOUNTER 2023-12-25 17:54 | Emergency (ER) | payer OTHER, SELFPAY ==
--- NOTE | ~2023-12-25 | US_ITS ---
EXAMINATION: Appendix ultrasound CLINICAL INFORMATION: Right lower quadrant/periumbilical pain COMPARISON: Previous CT of the abdomen and pelvis July 2023 TECHNIQUE: Grayscale imaging of the right lower quadrant using a linear and curved transducer. FINDINGS: The appendix is normal appearing and measures 4 to 5 mm in diameter. No ascites. No adenopathy. US/US appendix IMPRESSION: Normal appendix.
--- NOTE | ~2023-12-25 | CT_ITS ---
EXAMINATION: CT ABDOMEN AND PELVIS WITHOUT CONTRAST CLINICAL INFORMATION: lower abdominal pain. COMPARISON: 07/18/2023. TECHNIQUE: Multidetector volumetric imaging was performed from the superior aspect of the liver through the pubic symphysis without contrast per renal stone protocol. Sagittal and coronal reformatted images were obtained on the technologist workstation. This CT examination was performed using dose optimization techniques as appropriate, variously including the following: *Automated exposure control *Adjustment of mA and/or kV according to patient size (this includes techniques or standardized protocols for targeted exams where dose is matched to indication/reason for exam; i.e. extremities or head) *Use of iterative reconstruction technique DLP: 666 mGy-cm. FINDINGS: LUNG BASES: The visualized lung bases are unremarkable. LIVER, GALLBLADDER, BILIARY TREE: The non-contrast liver is normal in size, shape, and attenuation. No focal hepatic lesion or biliary ductal dilatation is present. The gallbladder is unremarkable with no evidence of radiopaque gallstones, gallbladder wall thickening, or obvious pericholecystic inflammatory changes. PANCREAS: Unremarkable. SPLEEN: Unremarkable. ADRENAL GLANDS: Unremarkable. KIDNEYS AND URETERS: The kidneys are normal in size, shape, and attenuation. No hydronephrosis, hydroureter, or perinephric stranding. No calculi. BLADDER: Unremarkable. GASTROINTESTINAL TRACT: The small and large bowel are unremarkable. The appendix is unremarkable. ABDOMINAL WALL: No significant hernia is appreciated. LYMPHOVASCULAR STRUCTURES: No lymphadenopathy. The aorta is unremarkable.. PELVIC VISCERA: Unremarkable. OSSEUS STRUCTURES: Unremarkable. CT/CT abdomen pelvis wo IV con IMPRESSION: No acute intra-abdominal process seen.
[2023-12-25 18:28] VITALS: BP 134/91; BP 182/90; PULSE 77; PULSE 84; RESP 16; TEMP 36.5; O2SAT 96; O2SAT 98; BMI 32.8
[2023-12-25 18:50] LABS: MANUAL DIFF FLAG NO
[2023-12-25 18:52] LABS: Basophils Percent Auto 0.2 % (0-2); Eosinophils Absolute Auto 0.1 X10*3/uL (0.0-0.4); Hematocrit 43.7 % (42.0-52.0); Hemoglobin 13.9 g/dl (14.0-18.0); Imm Gran Abs Auto 0.02 X10*3/uL (0.00-0.03); Imm Gran Pct Auto 0.4 % (0.0-0.4); Lymphocytes Absolute Auto 0.6 X10*3/uL (1.2-4.9); Lymphocytes Percent Auto 11.4 % (20-40); Mean Corpuscular HGB Conc 31.8 g/dl (31.0-36.0); Mean Corpuscular Hemoglobin 25.6 pg (27.0-33.0); Mean Corpuscular Volume 80.5 fL (80.0-98.0); Mean Platelet Volume 10.4 fL (9.4-12.4); Monocytes Absolute Auto 0.5 X10*3/uL (0.1-1.2); Monocytes Percent Auto 8.9 % (2-11); Neutrophils Percent Auto 78.1 % (45-73); Platelet Count 253 X10*3/uL (160-400); Red Blood Count 5.43 X10*6/uL (4.60-5.80); Red Cell Distribution Width 13.7 % (11.0-16.0); White Blood Count 5.2 X10*3/uL (4.8-10.8)
[2023-12-25 19:06] LABS: Alanine Aminotransferase 33 U/L (0-40); Albumin Level 4.3 g/dL (3.5-5.0); Alkaline Phosphatase 127 U/L (39-117); Anion Gap 11 (12-20); Aspartate Amino Transferase 29 U/L (5-37); Bilirubin Total 0.4 mg/dL (0.0-1.0); Blood Urea Nitrogen 19 mg/dL (9-16); Calcium 9.3 mg/dL (8.4-10.2); Carbon Dioxide 27 mmol/L (22-29); Chloride 105 mmol/L (96-108); Creatinine Clr Calc Pharmacy 145.6; Estimated Glomerular Filt Rate > 60; Glucose Random 103 mg/dL (60-115); Lipase 11 U/L (8-78); Potassium 4.7 mmol/L (3.3-5.1); Sodium 138 mmol/L (135-145)
--- NOTE | 2023-12-25 19:59 | ED.GENADULT ---
HPI - General Adult General Chief complaint: General Medical Stated complaint: LOWER ABD PAIN Time Seen by Provider: 12/25/23 19:29 Source: patient Mode of arrival: EMS History of Present Illness HPI narrative: 38-year-old male with arrival via EMS for 2 hours of left quadrant/mid abdominal discomfort with associated nausea, diarrhea. Patient reports that he was here 3 weeks ago with the same symptoms. Patient also reports positive sick contact with his son who has had similar symptoms. Related Data Home Medications Medication Instructions Recorded Confirmed trazodone 50 mg tablet 50 mg PO BEDTIME 02/11/21 12/16/23 acetaminophen 650 mg 1,300 mg PO Q8H PRN Pain 09/24/22 12/16/23 tablet,extended release (Tylenol Arthritis Pain) albuterol sulfate 90 mcg/actuation 2 puff inhalation Q4-6H PRN 09/24/22 12/16/23 aerosol inhaler (ProAir HFA) Wheezing buprenorphine 8 mg-naloxone 2 mg 1 film sublingual BID 09/24/22 12/16/23 sublingual film (Suboxone) cholecalciferol (vitamin D3) 50 50 mcg PO DAILY 09/24/22 12/16/23 mcg (2,000 unit) capsule ferrous sulfate 325 mg (65 mg 325 mg PO Q OTHER DAY 09/24/22 12/16/23 iron) tablet (Feosol) loratadine 10 mg tablet 10 mg PO DAILY 09/24/22 12/16/23 ondansetron 4 mg disintegrating 8 mg PO Q12H PRN nausea and 09/24/22 12/16/23 tablet vomiting inhalational spacing device #1 ea 09/29/22 12/16/23 ([facility] spacer) ondansetron HCl 4 mg tablet 4 mg PO Q8H PRN nausea/vomiting 09/29/22 12/16/23 sennosides 8.6 mg tablet (senna) 8.6 mg PO BEDTIME PRN Constipation 11/03/22 12/16/23 amoxicillin 500 mg capsule 2,000 mg PO ONCE PRN 02/16/23 12/16/23 polyethylene glycol 3350 17 17 g PO DAILY 04/08/23 12/16/23 gram/dose oral powder (Miralax) warfarin 5 mg tablet 10 mg PO 5XW 04/21/23 12/16/23 warfarin 7.5 mg tablet 7.5 mg PO 2XW 04/21/23 12/16/23 atorvastatin 20 mg tablet 20 mg PO DAILY 06/08/23 12/16/23 hydroxyzine pamoate 25 mg capsule 25 mg PO TID 10/21/23 12/16/23 blood pressure test kit-large #1 ea 12/16/23 12/16/23 Previous Rx's Medication Instructions Recorded acetaminophen 325 mg capsule 325 mg PO QID PRN pain 7 days #28 08/15/23 caps ondansetron 4 mg disintegrating 4 mg PO Q6-8H PRN nausea and 11/21/23 tablet vomiting #14 tabs ondansetron 4 mg disintegrating 4 mg PO Q8H PRN nausea and 12/25/23 tablet vomiting 4 days #7 tabs Allergies Allergy/AdvReac Type Severity Reaction Status Date / Time hydrocodone [From VICODIN] Allergy Unknown GI UPSET Verified 12/25/23 18:28 Review of Systems Review of Systems: Pertinent positives and negatives as stated in [facility] Past Medical History Source: nursing notes reviewed Medical History Anticoagulant causing adverse effect in therapeutic use CVA (cerebrovascular accident due to intracerebral hemorrhage) Endocarditis of prosthetic mitral valve SIRS (systemic inflammatory response syndrome) Myalgia Opioid use disorder Fracture of proximal end of humerus Asthma Current use of anticoagulant therapy Surgical History History of heart valve replacement with mechanical valve Heart valve replaced Presence of other heart-valve replacement Family History Family History Father Diabetes Mother H/O thyroid disease Social History Social History Household Members: Family Housing: Apartment Do you presently have visiting nurse or other home services: No Alcohol intake: never Patient Tobacco Use Status: Former Tobacco user Tobacco use type: Cigarette Substance Use Type: Other Advance Directives: No Advance Directives Information Provided: No service: No Current occupational status: unemployed 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 GENERAL: Well developed, well nourished, in no acute distress. HEAD: Normocephalic/atraumatic EYES: PERRLA, EOMI EARS: Ext canals without abnormality NOSE: Nares patent bilateral OROPHARYNX: no oral lesions noted, posterior pharynx clear NECK: Supple, no adenopathy LUNGS: Normal breath sounds. No adventitious sounds or accessory muscle use. SpO2<96> CARDIOVASCULAR: Regular rate and rhythm without noted murmurs ABDOMEN: Soft, diffuse tenderness to palpation, no rebound, no hernias appreciated, non-distended with bowel sounds. MUSCULOSKELETAL: No tenderness, deformities, or effusions noted on gross inspection. EXTREMITIES: No cyanosis, clubbing or edema. SKIN: Inspection of the skin reveals no rashes NEUROLOGIC: Alert and oriented x 4. Strength and sensation to light touch were grossly intact x 4. Medications Administered Discontinued Medications Generic Name Dose Route Start Last Admin Trade Name Freq PRN Reason Stop Dose Admin Acetaminophen 975 mg 12/25/23 20:22 12/25/23 20:41 Acetaminophen 325 Mg Tablet PO 12/25/23 20:23 975 mg ONCE ONE Administration Ibuprofen 400 mg 12/25/23 20:22 12/25/23 20:41 Ibuprofen 400 Mg Tablet PO 12/25/23 20:23 400 mg ONCE ONE Administration Medical Decision Making Medical Decision Making [facility] Narrative: 38-year-old male with history and clinical presentation, DDX: Gastroenteritis, lower clinical suspicion for cholelithiasis, inconsistent for a appendicitis, and low clinical suspicion for SBO, possible but less likely renal colic, UTI I reviewed all investigations and hematologic indices are negative for leukocytosis and there is a stable normocytic anemia without thrombocytopenia. I did review patient's recent INR levels on 12/16. Chemistry indices without evidence of LEONELA or electrolyte/liver enzyme derangements, patient has a chronically elevated alkaline phosphatase. COVID testing negative. Patient is adamant in endorses that he no longer uses PCP or alcohol. I reviewed the CT scan and agree with radiologist impression that there are no acute intra-abdominal findings and that patient likely has a viral etiology for presenting symptoms. He is otherwise discharged home on a course of antinausea medication instructions follow-up with primary care doctor. Differential Diagnosis Differential Diagnoses: The differential diagnosis associated with the presentation includes Please see the discussion above Admission/Observation Consideration of admission/observation: Escalation of care including admission/observation considered Please see the discussion above Lab Data MDM Lab Attestation statement: I reviewed the patient's lab results. Please see the discussion above 12/25/23 18:46 12/25/23 18:46 Labs: Lab Results 12/25/23 12/25/23 Range/Units 18:46 20:14 WBC 5.2 (4.8-10.8) X10*3/uL RBC 5.43 (4.60-5.80) X10*6/uL Hgb 13.9 L (14.0-18.0) g/dl Hct 43.7 (42.0-52.0) % MCV 80.5 (80.0-98.0) fL MCH 25.6 L (27.0-33.0) pg MCHC 31.8 (31.0-36.0) g/dl RDW 13.7 (11.0-16.0) % Plt Count 253 (160-400) X10*3/uL MPV 10.4 (9.4-12.4) fL Immature Gran % (Auto) 0.4 (0.0-0.4) % Neut % (Auto) 78.1 H (45-73) % Lymph % (Auto) 11.4 L (20-40) % [place] % (Auto) 8.9 (2-11) % Eos % (Auto) 1.0 (0-4) % Baso % (Auto) 0.2 (0-2) % Lymph # (Auto) 0.6 L (1.2-4.9) X10*3/uL [place] # (Auto) 0.5 (0.1-1.2) X10*3/uL Eos # (Auto) 0.1 (0.0-0.4) X10*3/uL Baso # (Auto) 0.0 (0.0-0.2) X10*3/uL Abs Immat Gran (auto) 0.02 (0.00-0.03) X10*3/uL Absolute Neuts (auto) 4.0 (2.0-8.3) x10*3/uL Absolute Nucleated RBC 0.000 (0.0-0.012) X10*3/uL Nucleated RBC % (auto) 0.0 (0.0-0.2) /100WBC Sodium 138 (135-145) mmol/L Potassium 4.7 (3.3-5.1) mmol/L Chloride 105 (96-108) mmol/L Carbon Dioxide 27 (22-29) mmol/L Anion Gap 11 L (12-20) BUN 19 H (9-16) mg/dL Creatinine 0.88 (0.5-1.4) mg/dL Estim Creat Clear Calc 145.6 Estimated GFR > 60 Random Glucose 103 (60-115) mg/dL Calcium 9.3 (8.4-10.2) mg/dL Magnesium 2.0 (1.6-2.6) mg/dL Total Bilirubin 0.4 (0.0-1.0) mg/dL AST 29 (5-37) U/L ALT 33 (0-40) U/L Alkaline Phosphatase 127 H (39-117) U/L Total Protein 8.0 (6.5-8.0) g/dL Albumin 4.3 (3.5-5.0) g/dL Lipase 11 (8-78) U/L COVID-19 ([facility]) Negative (Negative) COVID-19 Clin Com See Note Radiology Impression Discussion of test interpretation with radiology: I have reviewed the radiologist's reading. Radiologist Impression: Please see the discussion above External Record Review External record reviewed: Outpatient record, Prior outpatient labs and Prior outpatient radiology Chronic Conditions Patient?s care impacted by: Other Prosthetic valve, chronic anticoagulation Critical Care Time Critical Care Time Critical Care Time: Yes Total Critical Care Time: 45 Attestation: I personally attest to this time spent taking care of the patient. Discharge Plan Discharge Clinical Impression: Gastroenteritis Patient Disposition: Home, Self-Care Instructions: Gastroenteritis (ED), Nutrition Tips for Relief of Diarrhea (ED) Additional Instructions: 1. Resume all home medications as prescribed. 2. Continue to drink plenty of water and use a prescription for antinausea. 3. Follow-up with your primary care doctor in the next 1-2 days for re-evaluation. Return to the ER for any worsening symptoms. Prescriptions: New ondansetron 4 mg tablet,disintegrating 4 mg PO Q8H PRN (Reason: nausea and vomiting) 4 Days Qty: 7 0RF No Action warfarin 5 mg tablet 10 mg PO 5XW Hold Instructions: Doctor's Order Protocol: Dose Management Condition: Tuesday (Week One) Dose/Route: 7.5 mg Instruction: 1 x 7.5 mg tablet Condition: Tuesday Dose/Route: 7.5 mg Instruction: 1 x 7.5 mg tablet Condition: Tuesday Dose/Route: 7.5 mg Instruction: 1 x 7.5 mg tablet Condition: Tuesday Dose/Route: 7.5 mg Instruction: 1 x 7.5 mg tablet Condition: Dose/Route: 7.5 mg Instruction: 1 x 7.5 mg tablet Condition: Tuesday Dose/Route: 0 mg Instruction: 0 tablets Condition: Tuesday Dose/Route: 7.5 mg Instruction: 1 x 7.5 mg tablet Condition: Tuesday ( Two) Dose/Route: 7.5 mg Instruction: 1 x 7.5 mg tablet Condition: Tuesday Dose/Route: 7.5 mg Instruction: 1 x 7.5 mg tablet Condition: Tuesday Dose/Route: 7.5 mg Instruction: 1 x 7.5 mg tablet Condition: Tuesday Dose/Route: 7.5 mg Instruction: 1 x 7.5 mg tablet Condition: Dose/Route: 7.5 mg Instruction: 1 x 7.5 mg tablet Condition: Tuesday Dose/Route: 7.5 mg Instruction: 1 x 7.5 mg tablet Condition: Tuesday Dose/Route: 7.5 mg Instruction: 1 x 7.5 mg tablet Protocol Text: Adjustment Start Date: Tuesday12/16/23 INR Value: 4.6 INR Date: 12/16/23 Recheck Date: 12/23/23 Additional Instructions: REVIEW FOOD LIST WEEKLY RESUME WEEKLY GREENS- COOKED GREENS LOWER YOUR INR MORE THAN RAW warfarin 7.5 mg tablet 7.5 mg PO 2XW Hold Instructions: Doctor's Order Protocol: Dose Management Condition: Tuesday ( One) Dose/Route: 7.5 mg Instruction: 1 x 7.5 mg tablet Condition: Tuesday Dose/Route: 7.5 mg Instruction: 1 x 7.5 mg tablet Condition: Tuesday Dose/Route: 7.5 mg Instruction: 1 x 7.5 mg tablet Condition: Tuesday Dose/Route: 7.5 mg Instruction: 1 x 7.5 mg tablet Condition: Dose/Route: 7.5 mg Instruction: 1 x 7.5 mg tablet Condition: Tuesday Dose/Route: 0 mg Instruction: 0 tablets Condition: Tuesday Dose/Route: 7.5 mg Instruction: 1 x 7.5 mg tablet Condition: Tuesday (Week Two) Dose/Route: 7.5 mg Instruction: 1 x 7.5 mg tablet Condition: Tuesday Dose/Route: 7.5 mg Instruction: 1 x 7.5 mg tablet Condition: Tuesday Dose/Route: 7.5 mg Instruction: 1 x 7.5 mg tablet Condition: Tuesday Dose/Route: 7.5 mg Instruction: 1 x 7.5 mg tablet Condition: Dose/Route: 7.5 mg Instruction: 1 x 7.5 mg tablet Condition: Tuesday Dose/Route: 7.5 mg Instruction: 1 x 7.5 mg tablet Condition: Tuesday Dose/Route: 7.5 mg Instruction: 1 x 7.5 mg tablet Protocol Text: Adjustment Start Date: Tuesday12/16/23 INR Value: 4.6 INR Date: 12/16/23 Recheck Date: 12/23/23 Additional Instructions: REVIEW FOOD LIST WEEKLY RESUME WEEKLY GREENS- COOKED GREENS LOWER YOUR INR MORE THAN RAW sennosides [senna] 8.6 mg Tablet 8.6 mg PO BEDTIME PRN (Reason: Constipation) acetaminophen 325 mg capsule 325 mg PO QID PRN (Reason: pain) 7 Days Qty: 28 0RF ondansetron 4 mg tablet,disintegrating 4 mg PO Q6-8H PRN (Reason: nausea and vomiting) Qty: 14 0RF trazodone 50 mg tablet 50 mg PO BEDTIME ferrous sulfate [Feosol] 325 mg (65 mg iron) tablet 325 mg PO Q OTHER DAY loratadine 10 mg tablet 10 mg PO DAILY ondansetron 4 mg tablet,disintegrating 8 mg PO Q12H PRN (Reason: nausea and vomiting) albuterol sulfate [ProAir HFA] 90 mcg/actuation HFA aerosol inhaler 2 puff inhalation Q4-6H PRN (Reason: Wheezing) buprenorphine-naloxone [Suboxone] 8-2 mg film 1 film sublingual BID acetaminophen [Tylenol Arthritis Pain] 650 mg tablet extended release 1,300 mg PO Q8H PRN (Reason: Pain) cholecalciferol (vitamin D3) 50 mcg (2,000 unit) capsule 50 mcg PO DAILY (DME) Raghav Ashraf [facility] Spacer See Rx Instructions .ROUTE .MEDSUPPLY Qty: 1 Rx Instructions: As directed ondansetron HCl 4 mg tablet 4 mg PO Q8H PRN (Reason: nausea/vomiting) amoxicillin 500 mg capsule 2,000 mg PO ONCE PRN polyethylene glycol 3350 [Miralax] 17 gram/dose powder 17 g PO DAILY atorvastatin 20 mg tablet 20 mg PO DAILY hydroxyzine pamoate 25 mg capsule 25 mg PO TID (DME) blood pressure test kit-large Kit See Rx Instructions .ROUTE BID Qty: 1 Rx Instructions: As directed
[2023-12-25] MEDS: Acetaminophen 325 MG TABLET 975 MG PO (20:41)
[2023-12-25] MEDS: Ibuprofen 400 MG TABLET PO (20:41)
[2023-12-25 20:43] LABS: COVID-19 Test Negative (Negative); IDNOW Serial# 6674DD1D
--- NOTE | 2023-12-25 20:45 | PC.NURSE ---
Patient medicated per MAR for 8/10 pain in his abdomen.
[2023-12-25 21:30] VITALS: BP 118/69; PULSE 73; RESP 18; TEMP 36.7; O2SAT 100
[2023-12-25] MEDS: Ondansetron ODT 4 MG TAB.RAPDIS TRANSLINGU (21:51)
== END 2023-12-25 21:56 | disposition home or self-care (01) ==
PROVIDERS: Physician Assistant Medical; Emergency Provider Student in an Organized Health Care Education/Training Program
DX: K52.9 Noninfective gastroenteritis and colitis, unspecified (principal); R10.32 Left lower quadrant pain; R11.2 Nausea with vomiting, unspecified; Z20.822 Contact with and (suspected) exposure to COVID-19; Z20.828 Contact with and (suspected) exposure to other viral communicable diseases; Z79.899 Other long term (current) drug therapy
CPT/HCPCS: 36415; 74176; 76705; 80053; 83690; 83735; 85025; 87635; 99284

== ENCOUNTER 2024-01-01 07:40 | Emergency (ER) | payer OTHER, SELFPAY ==
[2024-01-01 07:47] VITALS: BP 147/73; PULSE 84; RESP 18; TEMP 36.5; O2SAT 97; BMI 33.7
[2024-01-01 07:54] VITALS: BP 147/73; PULSE 83; RESP 18; TEMP 36.5; O2SAT 96
--- NOTE | 2024-01-01 07:59 | PC.NURSE ---
Pt presents to ED from home, reports coughing up blood intermittently for 2 months, worsening. Pt reports bright red blood with sputum when he coughs, pt is on blood thinners. Pt denies any ABD pain, CP, SOB, vomiting or diarrhea. Pt does reports recent viral illness last week. Pt reports he has a doctors appointment with specialist for this in April but did not feel he could wait that long. Pt is alert and oriented, breathing even and unlabored, skin warm and dry. Pt resting comfortably in bed. VSS.
--- NOTE | 2024-01-01 08:26 | ED_ITS ---
HPI - General Adult General Chief complaint: GI Bleed Stated complaint: Vomiting blood Time Seen by Provider: 01/01/24 08:18 Source: patient Mode of arrival: ambulatory Limitations: no limitations History of Present Illness HPI narrative: 38-year-old male history of mitral valve replacement on Coumadin, patient is concern of spitting up blood every morning for the past few weeks and this morning patient woke up spit up bright red blood in the saliva x1 then resolved, patient has a metallic taste at the back of his throat that causes him to gag and having nausea. Currently patient has no sore throat, no fever, no chills, no throat pain. No abdominal pain, no blood in stool, black stool. Related Data Home Medications Medication Instructions Recorded Confirmed trazodone 50 mg tablet 50 mg PO BEDTIME 02/11/21 12/16/23 acetaminophen 650 mg 1,300 mg PO Q8H PRN Pain 09/24/22 12/16/23 tablet,extended release (Tylenol Arthritis Pain) albuterol sulfate 90 mcg/actuation 2 puff inhalation Q4-6H PRN 09/24/22 12/16/23 aerosol inhaler (ProAir HFA) Wheezing buprenorphine 8 mg-naloxone 2 mg 1 film sublingual BID 09/24/22 12/16/23 sublingual film (Suboxone) cholecalciferol (vitamin D3) 50 50 mcg PO DAILY 09/24/22 12/16/23 mcg (2,000 unit) capsule ferrous sulfate 325 mg (65 mg 325 mg PO Q OTHER DAY 09/24/22 12/16/23 iron) tablet (Feosol) loratadine 10 mg tablet 10 mg PO DAILY 09/24/22 12/16/23 ondansetron 4 mg disintegrating 8 mg PO Q12H PRN nausea and 09/24/22 12/16/23 tablet vomiting inhalational spacing device #1 ea 09/29/22 12/16/23 (Raghav Ashraf [facility] spacer) ondansetron HCl 4 mg tablet 4 mg PO Q8H PRN nausea/vomiting 09/29/22 12/16/23 sennosides 8.6 mg tablet (senna) 8.6 mg PO BEDTIME PRN Constipation 11/03/22 12/16/23 amoxicillin 500 mg capsule 2,000 mg PO ONCE PRN 02/16/23 12/16/23 polyethylene glycol 3350 17 17 g PO DAILY 04/08/23 12/16/23 gram/dose oral powder (Miralax) warfarin 5 mg tablet 10 mg PO 5XW 04/21/23 12/16/23 warfarin 7.5 mg tablet 7.5 mg PO 2XW 04/21/23 12/16/23 atorvastatin 20 mg tablet 20 mg PO DAILY 06/08/23 12/16/23 hydroxyzine pamoate 25 mg capsule 25 mg PO TID 10/21/23 12/16/23 blood pressure test kit-large #1 ea 12/16/23 12/16/23 Previous Rx's Medication Instructions Recorded acetaminophen 325 mg capsule 325 mg PO QID PRN pain 7 days #28 08/15/23 caps ondansetron 4 mg disintegrating 4 mg PO Q6-8H PRN nausea and 11/21/23 tablet vomiting #14 tabs ondansetron 4 mg disintegrating 4 mg PO Q8H PRN nausea and 12/25/23 tablet vomiting 4 days #7 tabs Allergies Allergy/AdvReac Type Severity Reaction Status Date / Time hydrocodone [From VICODIN] Allergy Unknown GI UPSET Verified 12/25/23 18:28 Review of Systems 2 Review of Systems: All other systems are reviewed and are negative Constitutional: Reports as per HPI and Reports no additional constitutional complaints Eyes: Reports as per HPI and Reports no additional eye complaints Reports system reviewed and no additional complaints, except as documented Cardiovascular: Reports as per HPI and Reports no additional cardiovascular complaints Respiratory: Reports as per HPI and Reports no additional respiratory complaints Gastrointestinal: Reports as per HPI and Reports no additional gastrointestinal complaints Genitourinary: Reports no additional female genitourinary complaints Musculoskeletal: Reports no additional musculoskeletal complaints Skin/Breast: Reports system reviewed and no additional complaints, except as docu Psychiatric: Reports no additional psychiatric complaints Endocrine: Reports no additional endocrine complaints Hematologic/Lymphatic: Reports no additional hematologic/lymphatic complaints Allergic/Immunologic: Reports no additional allergic/immunologic complaints Reports system reviewed and no additional complaints, except as documented and Reports Abnormal speech present [facility] Past Medical History Medical History Anticoagulant causing adverse effect in therapeutic use CVA (cerebrovascular accident due to intracerebral hemorrhage) Endocarditis of prosthetic mitral valve SIRS (systemic inflammatory response syndrome) Myalgia Opioid use disorder Fracture of proximal end of humerus Asthma Current use of anticoagulant therapy Surgical History History of heart valve replacement with mechanical valve Heart valve replaced Presence of other heart-valve replacement Family History Family History Father Diabetes Mother H/O thyroid disease Social History Social History Household Members: Family Housing: Apartment Do you presently have visiting nurse or other home services: No Alcohol intake: never Patient Tobacco Use Status: Former Tobacco user Tobacco use type: Cigarette Smoked in Last 30 Days: No Use of substances other than those prescribed or required for medical reasons: No Substance Use Type: Other Advance Directives: No service: No Current occupational status: unemployed 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 Blood pressure elevated. Heart rate normal. Respiratory rate normal. Temperature normal. Oxygen saturation normal. Appearance: Alert. Oriented X3. No acute distress. Head: Normal external exam. Normocephalic. Atraumatic. No Stoddard signs noted. No raccoon eyes noted Eyes: PERRLA. EOMI. Conjunctiva and sclera normal. Eyelids normal. ENT: TM's Normal. Pharynx normal. Uvula midline. Moist mucous membranes. No trismus noted. No drooling noted. No muffled voice noted. Neck: Normal inspection. Neck supple. FROM. No adenopathy. Thyroid Normal. No meningeal signs. No neck mass noted. CVS: Normal heart rate and rhythm. Heart sound normal. No murmurs noted. Pulses normal throughout. Respiratory: No respiratory distress. Painless inspiration. Breath sounds normal. No wheezes/rales/rhonchi noted. Chest nontender. No accessory muscle usage noted or decreased air movement noted. Abdomen: Soft and nontender. Bowel sounds normal in all 4 quadrants. No distention noted. No organomegaly noted. No visible injury noted. Rectal exam: Patient declined Back: No CVA tenderness. Full range of motion noted. Skin: Skin warm and dry. Normal skin color. Normal skin turgor. No rashes/lesions/lacerations noted. Extremities: No lower extremity edema. Extremities exhibit normal range of motion. Extremities nontender. Neuro: Oriented X 3. Cranial nerve exam: II-XII are grossly intact No motor deficit. No sensory deficit. Reflexes normal. Course Reevaluation(s) Reevaluation #1: No active vomiting or diarrhea, no blood vomit while in the emergency department, unremarkable labs INR is therapeutic at 3. Time: 11:27 Medications Administered Discontinued Medications Generic Name Dose Route Start Last Admin Trade Name Freq PRN Reason Stop Dose Admin Sodium Chloride 1,000 mls @ 999 mls/hr 01/01/24 08:18 01/01/24 08:37 Ns IV 01/01/24 09:18 999 mls/hr .Q1H1M ONE Administration Medical Decision Making Differential Diagnosis Differential Diagnoses: The differential diagnosis associated with the presentation includes (Hypercoagulability, severe anemia, electrolyte derangement, UTI strep pharyngitis, COVID infection, influenza, RSV.) Admission/Observation Consideration of admission/observation: Escalation of care including admission/observation considered Lab Data MDM Lab Attestation statement: I reviewed the patient's lab results. 01/01/24 08:36 01/01/24 08:36 Labs: Lab Results 01/01/24 01/01/24 Range/Units 08:36 09:53 WBC 4.8 (4.8-10.8) X10*3/uL RBC 5.65 (4.60-5.80) X10*6/uL Hgb 14.6 (14.0-18.0) g/dl Hct 45.6 (42.0-52.0) % MCV 80.7 (80.0-98.0) fL MCH 25.8 L (27.0-33.0) pg MCHC 32.0 (31.0-36.0) g/dl RDW 13.3 (11.0-16.0) % Plt Count 274 (160-400) X10*3/uL MPV 10.1 (9.4-12.4) fL Immature Gran % (Auto) 0.2 (0.0-0.4) % Neut % (Auto) 55.5 (45-73) % Lymph % (Auto) 34.8 (20-40) % Dale % (Auto) 8.3 (2-11) % Eos % (Auto) 1.0 (0-4) % Baso % (Auto) 0.2 (0-2) % Lymph # (Auto) 1.7 (1.2-4.9) X10*3/uL Dale # (Auto) 0.4 (0.1-1.2) X10*3/uL Eos # (Auto) 0.1 (0.0-0.4) X10*3/uL Baso # (Auto) 0.0 (0.0-0.2) X10*3/uL Abs Immat Gran (auto) 0.01 (0.00-0.03) X10*3/uL Absolute Neuts (auto) 2.7 (2.0-8.3) x10*3/uL Absolute Nucleated RBC 0.000 (0.0-0.012) X10*3/uL Nucleated RBC % (auto) 0.0 (0.0-0.2) /100WBC PT 37.1 H (11.1-13.3) SEC INR 3.0 H (0.9-1.1) APTT 56.3 H (26.0-36.8) SEC Sodium 141 (135-145) mmol/L Potassium 4.6 (3.3-5.1) mmol/L Chloride 105 (96-108) mmol/L Carbon Dioxide 29 (22-29) mmol/L Anion Gap 12 (12-20) BUN 16 (9-16) mg/dL Creatinine 1.15 (0.5-1.4) mg/dL Estim Creat Clear Calc 122.8 Estimated GFR > 60 Random Glucose 105 (60-115) mg/dL Calcium 9.3 (8.4-10.2) mg/dL Total Bilirubin 0.5 (0.0-1.0) mg/dL Direct Bilirubin 0.3 (0.0-0.5) mg/dL AST 23 (5-37) U/L ALT 20 (0-40) U/L Alkaline Phosphatase 125 H (39-117) U/L Troponin I High Sens 3.4 (<3.5-35.0) ng/L Total Protein 8.0 (6.5-8.0) g/dL Albumin 4.4 (3.5-5.0) g/dL Lipase 14 (8-78) U/L Urine Color Yellow Urine Appearance Clear Urine pH 5.5 (5.0-9.0) Ur Specific [place] 1.025 (1.005-1.025) Urine Protein Negative (Neg-Trace) mg/dL Urine Glucose (UA) Negative (Negative) mg/dL Urine Ketones Negative (Negative) mg/dL Urine Blood Trace H (Negative) Urine Nitrite Negative (Negative) Ur Leukocyte Esterase Negative (Negative) Urine RBC 3-5 H (0-2) /HPF Urine WBC 0-5 (0-5) /HPF Ur Squamous Epith Cells 0-2 (0-2) /HPF Urine Bacteria None Seen (None Seen) Hyaline Casts 0-2 (0-2) /LPF Influenza Type A (PCR) NEGATIVE (Negative) Influenza Type B (PCR) NEGATIVE (Negative) RSV RNA Qual (PCR) NEGATIVE (Negative) SARS-CoV-2 RNA (RT-PCR) NEGATIVE (Negative) S. pyogenes GrpA FRACISCO Negative (Negative) Chronic Conditions Patient?s care impacted by: Other (On anticoagulation therapy.) Discharge Plan Discharge Clinical Impression: Hemoptysis Patient Disposition: Home, Self-Care Instructions: Hemoptysis (ED) Prescriptions: No Action warfarin 5 mg tablet 10 mg PO 5XW Hold Instructions: Doctor's Order Protocol: Dose Management Condition: Tuesday (Week One) Dose/Route: 7.5 mg Instruction: 1 x 7.5 mg tablet Condition: Tuesday Dose/Route: 7.5 mg Instruction: 1 x 7.5 mg tablet Condition: Tuesday Dose/Route: 7.5 mg Instruction: 1 x 7.5 mg tablet Condition: Tuesday Dose/Route: 7.5 mg Instruction: 1 x 7.5 mg tablet Condition: Dose/Route: 7.5 mg Instruction: 1 x 7.5 mg tablet Condition: Tuesday Dose/Route: 0 mg Instruction: 0 tablets Condition: Tuesday Dose/Route: 7.5 mg Instruction: 1 x 7.5 mg tablet Condition: Tuesday (Week Two) Dose/Route: 7.5 mg Instruction: 1 x 7.5 mg tablet Condition: Tuesday Dose/Route: 7.5 mg Instruction: 1 x 7.5 mg tablet Condition: Tuesday Dose/Route: 7.5 mg Instruction: 1 x 7.5 mg tablet Condition: Tuesday Dose/Route: 7.5 mg Instruction: 1 x 7.5 mg tablet Condition: Dose/Route: 7.5 mg Instruction: 1 x 7.5 mg tablet Condition: Tuesday Dose/Route: 7.5 mg Instruction: 1 x 7.5 mg tablet Condition: Tuesday Dose/Route: 7.5 mg Instruction: 1 x 7.5 mg tablet Protocol Text: Adjustment Start Date: Tuesday12/16/23 INR Value: 4.6 INR Date: 12/16/23 Recheck Date: 12/23/23 Additional Instructions: REVIEW FOOD LIST WEEKLY RESUME WEEKLY GREENS- COOKED GREENS LOWER YOUR INR MORE THAN RAW warfarin 7.5 mg tablet 7.5 mg PO 2XW Hold Instructions: Doctor's Order Protocol: Dose Management Condition: Tuesday (Week One) Dose/Route: 7.5 mg Instruction: 1 x 7.5 mg tablet Condition: Tuesday Dose/Route: 7.5 mg Instruction: 1 x 7.5 mg tablet Condition: Tuesday Dose/Route: 7.5 mg Instruction: 1 x 7.5 mg tablet Condition: Tuesday Dose/Route: 7.5 mg Instruction: 1 x 7.5 mg tablet Condition: Dose/Route: 7.5 mg Instruction: 1 x 7.5 mg tablet Condition: Tuesday Dose/Route: 0 mg Instruction: 0 tablets Condition: Tuesday Dose/Route: 7.5 mg Instruction: 1 x 7.5 mg tablet Condition: Tuesday ( Two) Dose/Route: 7.5 mg Instruction: 1 x 7.5 mg tablet Condition: Tuesday Dose/Route: 7.5 mg Instruction: 1 x 7.5 mg tablet Condition: Tuesday Dose/Route: 7.5 mg Instruction: 1 x 7.5 mg tablet Condition: Tuesday Dose/Route: 7.5 mg Instruction: 1 x 7.5 mg tablet Condition: Dose/Route: 7.5 mg Instruction: 1 x 7.5 mg tablet Condition: Tuesday Dose/Route: 7.5 mg Instruction: 1 x 7.5 mg tablet Condition: Tuesday Dose/Route: 7.5 mg Instruction: 1 x 7.5 mg tablet Protocol Text: Adjustment Start Date: Tuesday12/16/23 INR Value: 4.6 INR Date: 12/16/23 Recheck Date: 12/23/23 Additional Instructions: REVIEW FOOD LIST WEEKLY RESUME WEEKLY GREENS- COOKED GREENS LOWER YOUR INR MORE THAN RAW sennosides [senna] 8.6 mg Tablet 8.6 mg PO BEDTIME PRN (Reason: Constipation) ondansetron 4 mg tablet,disintegrating 4 mg PO Q8H PRN (Reason: nausea and vomiting) 4 Days Qty: 7 0RF acetaminophen 325 mg capsule 325 mg PO QID PRN (Reason: pain) 7 Days Qty: 28 0RF ondansetron 4 mg tablet,disintegrating 4 mg PO Q6-8H PRN (Reason: nausea and vomiting) Qty: 14 0RF trazodone 50 mg tablet 50 mg PO BEDTIME ferrous sulfate [Feosol] 325 mg (65 mg iron) tablet 325 mg PO Q OTHER DAY loratadine 10 mg tablet 10 mg PO DAILY ondansetron 4 mg tablet,disintegrating 8 mg PO Q12H PRN (Reason: nausea and vomiting) albuterol sulfate [ProAir HFA] 90 mcg/actuation HFA aerosol inhaler 2 puff inhalation Q4-6H PRN (Reason: Wheezing) buprenorphine-naloxone [Suboxone] 8-2 mg film 1 film sublingual BID acetaminophen [Tylenol Arthritis Pain] 650 mg tablet extended release 1,300 mg PO Q8H PRN (Reason: Pain) cholecalciferol (vitamin D3) 50 mcg (2,000 unit) capsule 50 mcg PO DAILY (DME) Raghav Ashraf [facility] Spacer See Rx Instructions .ROUTE .MEDSUPPLY Qty: 1 Rx Instructions: As directed ondansetron HCl 4 mg tablet 4 mg PO Q8H PRN (Reason: nausea/vomiting) amoxicillin 500 mg capsule 2,000 mg PO ONCE PRN polyethylene glycol 3350 [Miralax] 17 gram/dose powder 17 g PO DAILY atorvastatin 20 mg tablet 20 mg PO DAILY hydroxyzine pamoate 25 mg capsule 25 mg PO TID (DME) blood pressure test kit-large Kit See Rx Instructions .ROUTE BID Qty: 1 Rx Instructions: As directed Referrals: Monserrat Turner MD [Physician] -
[2024-01-01] MEDS: 0.9 % Sodium Chloride 1,000 ML 999 ML IV (08:37)
[2024-01-01 08:41] LABS: MANUAL DIFF FLAG NO
[2024-01-01 08:42] LABS: Basophils Percent Auto 0.2 % (0-2); Eosinophils Absolute Auto 0.1 X10*3/uL (0.0-0.4); Hematocrit 45.6 % (42.0-52.0); Hemoglobin 14.6 g/dl (14.0-18.0); Imm Gran Abs Auto 0.01 X10*3/uL (0.00-0.03); Imm Gran Pct Auto 0.2 % (0.0-0.4); Lymphocytes Absolute Auto 1.7 X10*3/uL (1.2-4.9); Lymphocytes Percent Auto 34.8 % (20-40); Mean Corpuscular Hemoglobin 25.8 pg (27.0-33.0); Mean Corpuscular Volume 80.7 fL (80.0-98.0); Mean Platelet Volume 10.1 fL (9.4-12.4); Monocytes Absolute Auto 0.4 X10*3/uL (0.1-1.2); Monocytes Percent Auto 8.3 % (2-11); Neutrophils Absolute Auto 2.7 x10*3/uL (2.0-8.3); Neutrophils Percent Auto 55.5 % (45-73); Platelet Count 274 X10*3/uL (160-400); Red Blood Count 5.65 X10*6/uL (4.60-5.80); Red Cell Distribution Width 13.3 % (11.0-16.0); White Blood Count 4.8 X10*3/uL (4.8-10.8)
[2024-01-01 08:52] LABS: Prothrombin Time 37.1 SEC (11.1-13.3)
[2024-01-01 08:54] LABS: Partial Thromboplastin Time 56.3 SEC (26.0-36.8)
[2024-01-01 08:57] LABS: IDNOW Serial# 08D9AD1C; Strep A Nucleic Acid Negative (Negative)
[2024-01-01 09:00] LABS: Troponin-I High Sensitivity 3.4 ng/L (<3.5-35.0)
[2024-01-01 09:12] LABS: Alanine Aminotransferase 20 U/L (0-40); Albumin Level 4.4 g/dL (3.5-5.0); Alkaline Phosphatase 125 U/L (39-117); Anion Gap 12 (12-20); Aspartate Amino Transferase 23 U/L (5-37); Bilirubin Direct 0.3 mg/dL (0.0-0.5); Bilirubin Total 0.5 mg/dL (0.0-1.0); Blood Urea Nitrogen 16 mg/dL (9-16); Calcium 9.3 mg/dL (8.4-10.2); Carbon Dioxide 29 mmol/L (22-29); Chloride 105 mmol/L (96-108); Creatinine Clr Calc Pharmacy 122.8; Estimated Glomerular Filt Rate > 60; Glucose Random 105 mg/dL (60-115); Lipase 14 U/L (8-78); Potassium 4.6 mmol/L (3.3-5.1); Sodium 141 mmol/L (135-145)
[2024-01-01 09:59] LABS: Appearance Urine Clear; Color Urine Yellow; Glucose Urine UA Negative (Negative); Leukocyte Esterase Urine Negative (Negative); Nitrite Urine Negative (Negative); PH 5.5 (5.0-9.0); Specific Gravity - Urine 1.025 (1.005-1.025); UMIC TRIGGER UACC YES; Urine Blood Trace (Negative); Urine Ketones Negative (Negative); Urine Protein Negative (Neg-Trace)
[2024-01-01 10:04] LABS: Bacteria Urine None Seen (None Seen); Hyaline Casts Urine 0-2 /LPF (0-2); Squamous Epithelial Cell Urine 0-2 /HPF (0-2); WBC Urine 0-5 /HPF (0-5)
[2024-01-01 10:10] LABS: Influenza A PCR NEGATIVE (Negative); Influenza B PCR NEGATIVE (Negative); Resp Syncy Virus RNA Qual PCR NEGATIVE (Negative); SARS COV2 PCR INHOUSE NEGATIVE (Negative)
[2024-01-01 10:53] VITALS: BP 145/70; PULSE 70; RESP 18; TEMP 36.8; O2SAT 98
== END 2024-01-01 11:54 | disposition home or self-care (01) ==
PROVIDERS: Emergency Provider Emergency Medicine
DX: R04.2 Hemoptysis (principal); K92.2 Gastrointestinal hemorrhage, unspecified; R11.2 Nausea with vomiting, unspecified; Z79.01 Long term (current) use of anticoagulants; Z11.52 Encounter for screening for COVID-19; Z20.822 Contact with and (suspected) exposure to COVID-19; Z79.899 Other long term (current) drug therapy
CPT/HCPCS: 0241U; 36415; 80048; 80076; 81001; 83690; 84484; 85025; 85610; 85730; 87651; 96360; 96361; 99284

== ENCOUNTER → 2024-01-03 15:26 | Outpatient (BNVA) | payer OTHER, SELFPAY | PROVIDERS: Visit Provider Internal Medicine ==

== ENCOUNTER 2024-01-04 13:44 | Outpatient (REF) | payer OTHER, SELFPAY | END 2024-01-04 13:45 | disposition home or self-care (01) | LOC: HO.HHCLNP 13:44 | PROVIDERS: Visit Provider Emergency Medicine | DX: R09.82 Postnasal drip (principal) | CPT/HCPCS: 87070 ==

== ENCOUNTER 2024-01-20 15:03 | Outpatient (AMB) | payer OTHER, SELFPAY ==
--- NOTE | 2024-01-20 15:14 | MHC.OFFVISCO ---
Intake Intake Visit Reasons: Anticoagulation Allergies hydrocodone [From VICODIN] Allergy (Unknown, Verified 01/20/24 15:04) GI UPSET Nursing Note INR: 3.1 in therapeutic range of 2.5-3.5 Medications and supplements reviewed, no changes No changes in health, diet, medications, or supplements, Denies any signs and symptoms of bleeding or bruising or clotting. Bleeding, bruising, clotting discussed Nutritional guidance given Dose: continue same dose of 7.5mg daily F/U INR: 2 weeks Patient verbalizes understanding of instructions given Anti-Coag Initial Assessment Social Hx Patient Tobacco Use Status: Former Tobacco user Tobacco use type: Cigarette alcohol intake: never Alcohol intake frequency: does not drink Coding Level of Care Code Est Patient Level 1 Diagnoses Current use of anticoagulant therapy Z79.01 Results AMB INR Fingerstick AMB INR Fingerstick 3.1 Last Edit by Kayla Alvarez, RN on 01/20/24 15:12 corrected INR Assessment & Plan Assessment & Plan (1) Current use of anticoagulant therapy: Code(s): Z79.01 - intermediate (current) use of anticoagulants
[2024-01-20 15:16] LABS: Prothrombin Time Whole Bld POC 37.5 sec (11.1-13.5); ~PT, ~INR - Anti Coag Clinic 3.1 (0.9-1.1)
== END 2024-01-20 15:16 | disposition home or self-care (01) ==
LOC: HO.ACS 15:03
PROVIDERS: Visit Provider Internal Medicine
DX: Z79.01 Long term (current) use of anticoagulants (principal)

== ENCOUNTER → 2024-01-20 15:03 | Outpatient (BNVA) | payer OTHER, SELFPAY | PROVIDERS: Visit Provider Internal Medicine | DX: Z95.2 Presence of prosthetic heart valve (principal); Z79.01 Long term (current) use of anticoagulants; Z51.81 Encounter for therapeutic drug level monitoring | CPT/HCPCS: 85610; 99211 ==

== ENCOUNTER 2024-02-02 11:15 | Outpatient (AMB) | payer OTHER, SELFPAY ==
--- NOTE | 2024-02-02 11:22 | A.OFFVIS_ITS ---
Intake Vital Signs 02/02/24 11:28 Height 6 ft 3 in Weight 270 lb BMI 33.7 BP 125/63 Blood Pressure Location Lt brachial Position Sitting Pulse 88 Intake Visit Reasons: Constipation Intake Note: Ludin presents in the office as a new patient for constipation. CC: No blood when he has a BM - only one time. He state he is here for constipation. Allergies hydrocodone [From VICODIN] Allergy (Unknown, Verified 02/02/24 11:28) GI UPSET Medication List - Last Reconciled 02/02/24 by Radha De La Fuente PA-C acetaminophen 325 mg PO QID PRN 7 days acetaminophen ER (Tylenol Arthritis Pain) 1,300 mg PO Q8H PRN albuterol sulfate 90 mcg/actuation (ProAir HFA) 2 puffs inhalation Q4-6H PRN atorvastatin 20 mg PO DAILY blood pressure test kit-large As directed buprenorphine-naloxone 8-2 mg (Suboxone) 1 film sublingual BID fluticasone propionate 50 mcg/actuation sprays intranasal hydroxyzine pamoate 25 mg PO TID inhalational spacing device ([facility] C spacer) As directed loratadine 10 mg PO DAILY ondansetron 4 mg PO Q8H PRN 4 days polyethylene glycol 3350 (Miralax) 17 grams PO DAILY trazodone 50 mg PO BEDTIME warfarin 7.5 mg See Protocol PO 2XW warfarin 10 mg See Protocol PO 5XW HPI HPI Comments History of Present Illness Details A 38 y/o male MVR warfarin- chronic constipation for the past year This past month was in the hospital x 3 for abdominal pain, N/V- zofran for nausea- takes occ. [place] or zofran-if they don't work goes to the hospital He has constipation-if he take miralax he has no problem- but does not take as prescribed Appetite is good-he has a long hx acid reflux- was taking ppi-but no prescription- he takes his wifes- medication-seem to help- Currently not been seen by cardiology-has upcoming appt. No wt loss, fever or chills PFSH Medical History (Updated 02/02/24 @ 12:07 by Radha De La Fuente PA-C) Anticoagulant causing adverse effect in therapeutic use CVA (cerebrovascular accident due to intracerebral hemorrhage) Endocarditis of prosthetic mitral valve SIRS (systemic inflammatory response syndrome) Myalgia Opioid use disorder Fracture of proximal end of humerus Asthma Current use of anticoagulant therapy Surgical History History of heart valve replacement with mechanical valve Heart valve replaced Presence of other heart-valve replacement Family History Father Diabetes Mother H/O thyroid disease Social History (Updated 02/02/24 @ 12:01 by Radha De La Fuente PA-C) Household Members: Family Household Members Other:: 3 kids Housing: Apartment Do you presently have visiting nurse or other home services: No Alcohol intake: never Patient Tobacco Use Status: Former Tobacco user Tobacco use type: Cigarette Substance Use Type: Former Substance User and Other service: No Current occupational status: unemployed and disabled 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- Review of Systems Const All systems reviewed & are unremarkable except as noted in HPI and below Card Denies chest pain, Denies chest pain at rest, Denies chest pain with activity, Denies syncope, Denies rapid heart rate, Denies lightheadedness, Denies dyspnea, Denies dyspnea on exertion and Denies orthopnea Resp Denies dyspnea and Denies dyspnea on exertion GI Reports abdominal pain (diffuse-), Denies hematochezia, Reports nausea and Reports vomiting Neuro Denies syncope Physical Exam Vital Signs: Last Vital Signs Pulse 88 02/02/24 11:28 BP 125/63 02/02/24 11:28 BMI result Body Mass Index 33.7 Const General: cooperative, healthy appearing, comfortable and no acute distress Orientation/consciousness: patient oriented x3 Limitations: no limitations Eyes Sclerae: sclerae normal Resp Effort & Inspection: normal respiratory effort and able to speak in complete sentences Auscultation: clear to auscultation bilaterally, no rhonchi and no wheezes Cardio Rate: regular rate Rhythm: regular rhythm Heart sounds: S1 normal heart sound present and no murmurs GI Palpation (GI): Soft to palpation and nontender Auscultation: normal bowel sounds Skin General skin exam: no rashes or lesions noted Neuro General: patient oriented x3 Extrem General: Yes full ROM Psych Appearance: grossly normal and well kempt Mental Status: mental status grossly normal Speech and movement: Normal speech and movement present and Clear speech present Affect: normal affect Attitude: cooperative Thought process: Normal thought process present Thought content: Normal thought content present Insight: Good insight present (Psych) Judgement: Good judgement present (Psych) Results Reviewed Results Reviewed: 12/2023 CT/CT abdomen pelvis wo IV con IMPRESSION: No acute intra-abdominal process seen. Assessment & Plan Assessment & Plan (1) Anticoagulant long-term use: Code(s): Z79.01 - custodial (current) use of anticoagulants Plan: coumadin Discussed importance of cardiology f/u Agrees to see cardiology- @ [address] as scheduled (2) Chronic constipation: Code(s): K59.09 - Other constipation Plan: miralax daily - has had great response (3) Acid reflux: Code(s): K21.9 - Gastro-esophageal reflux disease without esophagitis Plan: omeprazole 20 mg reflux precautions Medications: New omeprazole 20 mg PO DAILY 30 caps 5RF Patient Instructions: omeprazole 20 mg reflux precautions Consistent bowel regimen HFD F/U cardiology- reenforced importance Coding Level of Care Code New Pt Level 4 (97505) Diagnoses Anticoagulant long-term use Z79.01 Chronic constipation K59.09 Acid reflux K21.9 Time Spent (min) 30
[2024-02-02 11:28] VITALS: BP 125/63; PULSE 88; BMI 33.7
== END 2024-02-02 12:15 | disposition home or self-care (01) ==
PROVIDERS: Visit Provider Physician Assistant
DX: Z79.01 Long term (current) use of anticoagulants (principal); K59.09 Other constipation; K21.9 Gastro-esophageal reflux disease without esophagitis
CPT/HCPCS: 99204

== ENCOUNTER → 2024-02-02 11:15 | Outpatient (BNVA) | payer OTHER, SELFPAY | PROVIDERS: Visit Provider Physician Assistant | DX: K59.09 Other constipation (principal); K21.9 Gastro-esophageal reflux disease without esophagitis; Z79.01 Long term (current) use of anticoagulants | CPT/HCPCS: 99202 ==

== ENCOUNTER 2024-03-13 14:29 | Outpatient (REF) | payer OTHER, SELFPAY ==
[2024-03-13 15:02] LABS: Prothrombin Time 50.4 SEC (11.1-13.3)
[2024-03-13 15:08] LABS: INTERNATIONAL NORM RATIO 4.1 (0.9-1.1)
== END 2024-03-13 14:30 | disposition home or self-care (01) ==
LOC: HO.LAB 14:29
PROVIDERS: PCP Registered Nurse; Visit Provider Internal Medicine
DX: Z95.2 Presence of prosthetic heart valve (principal); Z51.81 Encounter for therapeutic drug level monitoring; Z79.01 Long term (current) use of anticoagulants
CPT/HCPCS: 36415; 85610; 99212

== ENCOUNTER 2024-03-13 14:29 | Outpatient (AMB) | payer OTHER, SELFPAY ==
[2024-03-13 14:41] LABS: Prothrombin Time Whole Bld POC 62.1 sec (11.1-13.5); ~PT, ~INR - Anti Coag Clinic 5.2 (0.9-1.1)
--- NOTE | 2024-03-13 15:17 | MHC.OFFVISCO ---
Intake Intake Visit Reasons: Anticoagulation Allergies hydrocodone [From VICODIN] Allergy (Unknown, Verified 03/13/24 14:35) GI UPSET Medication List - Last Reconciled 03/13/24 by Kayla Alvarez, JOLENE acetaminophen 325 mg PO QID PRN 7 days acetaminophen ER (Tylenol Arthritis Pain) 1,300 mg PO Q8H PRN albuterol sulfate 90 mcg/actuation (ProAir HFA) 2 puffs inhalation Q4-6H PRN atorvastatin 20 mg PO DAILY blood pressure test kit-large As directed buprenorphine-naloxone 8-2 mg (Suboxone) 1 film sublingual BID fluticasone propionate 50 mcg/actuation sprays intranasal hydroxyzine pamoate 25 mg PO TID inhalational spacing device ([employer] Pascale [facility] spacer) As directed loratadine 10 mg PO DAILY omeprazole 20 mg PO DAILY ondansetron 4 mg PO Q8H PRN 4 days polyethylene glycol 3350 (Miralax) 17 grams PO DAILY trazodone 50 mg PO BEDTIME warfarin 7.5 mg See Protocol PO 2XW warfarin 10 mg See Protocol PO 5XW Nursing Note INR 4.1?out of therapeutic range of 2.5-3.5 Medications and supplements reviewed: no changes Patient status: feels well Medications or supplements: no change Diet: usual diet Denies any signs and symptoms of bleeding or clotting or unusual bruising Bleeding, bruising, clotting discussed Nutritional guidance given: to have a serving of greens today and tomorrow Dose: decreased today's dose to 2.5mg (7.5mg) then resume usual dose of 7.5mg daily F/U INR Date : 1 week?? Patient verbalizing understanding of instructions given. 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
== END 2024-03-13 15:22 | disposition home or self-care (01) ==
LOC: HO.ACS 14:29
PROVIDERS: PCP Registered Nurse; Visit Provider Internal Medicine
DX: Z79.01 Long term (current) use of anticoagulants (principal)

== ENCOUNTER 2024-03-23 15:29 | Outpatient (AMB) | payer OTHER, SELFPAY ==
[2024-03-23 15:38] LABS: Prothrombin Time Whole Bld POC 21.6 sec (11.1-13.5); ~PT, ~INR - Anti Coag Clinic 1.8 (0.9-1.1)
--- NOTE | 2024-03-23 15:50 | MHC.OFFVISCO ---
Intake Intake Visit Reasons: Anticoagulation Allergies hydrocodone [From VICODIN] Allergy (Unknown, Verified 03/23/24 15:37) GI UPSET Medication List - Last Reconciled 03/23/24 by Kayla Alvarez RN acetaminophen 325 mg PO QID PRN 7 days acetaminophen ER (Tylenol Arthritis Pain) 1,300 mg PO Q8H PRN albuterol sulfate 90 mcg/actuation (ProAir HFA) 2 puffs inhalation Q4-6H PRN atorvastatin 20 mg PO DAILY blood pressure test kit-large As directed buprenorphine-naloxone 8-2 mg (Suboxone) 1 film sublingual BID fluticasone propionate 50 mcg/actuation sprays intranasal hydroxyzine pamoate 25 mg PO TID inhalational spacing device ([employer] Pasc[employer] [facility] spacer) As directed loratadine 10 mg PO DAILY omeprazole 20 mg PO DAILY ondansetron 4 mg PO Q8H PRN 4 days polyethylene glycol 3350 (Miralax) 17 grams PO DAILY trazodone 50 mg PO BEDTIME warfarin 7.5 mg See Protocol PO 2XW warfarin 10 mg See Protocol PO 5XW Nursing Note INR 1.8?out of therapeutic range of 2.5-3.5 Medications and supplements reviewed: no change Patient status: well Medications or supplements: no changes Diet: usual diet for pt Denies any signs and symptoms of bleeding or clotting or unusual bruising Bleeding, bruising, clotting discussed Nutritional guidance given: to avoid greens next 2 days Dose: increased to 10 mg (7.5mg) the next 2 days then resume usual dose of 7.5mg daily F/U INR Date : 1 week?? Patient verbalizing understanding of instructions given. 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
== END 2024-03-23 15:54 | disposition home or self-care (01) ==
LOC: HO.ACS 15:29
PROVIDERS: PCP Registered Nurse; Visit Provider Internal Medicine
DX: Z79.01 Long term (current) use of anticoagulants (principal)

== ENCOUNTER → 2024-03-23 15:29 | Outpatient (BNVA) | payer OTHER, SELFPAY | PROVIDERS: PCP Registered Nurse; Visit Provider Internal Medicine | DX: Z95.2 Presence of prosthetic heart valve (principal); Z51.81 Encounter for therapeutic drug level monitoring; Z79.01 Long term (current) use of anticoagulants | CPT/HCPCS: 85610; 99211 ==

== ENCOUNTER 2024-04-17 14:48 | Outpatient (AMB) | payer OTHER, SELFPAY ==
[2024-04-17 15:08] LABS: Prothrombin Time Whole Bld POC 18.2 sec (11.1-13.5); ~PT, ~INR - Anti Coag Clinic 1.5 (0.9-1.1)
--- NOTE | 2024-04-17 16:14 | MHC.OFFVISCO ---
Intake Intake Visit Reasons: Anticoagulation Allergies hydrocodone [From VICODIN] Allergy (Unknown, Verified 04/17/24 15:06) GI UPSET Medication List - Last Reconciled 04/17/24 by Grace Mccloud RN acetaminophen 325 mg PO QID PRN 7 days acetaminophen ER (Tylenol Arthritis Pain) 1,300 mg PO Q8H PRN albuterol sulfate 90 mcg/actuation (ProAir HFA) 2 puffs inhalation Q4-6H PRN atorvastatin 20 mg PO DAILY blood pressure test kit-large As directed buprenorphine-naloxone 8-2 mg (Suboxone) 1 film sublingual BID fluticasone propionate 50 mcg/actuation sprays intranasal hydroxyzine pamoate 25 mg PO TID inhalational spacing device ([employer] Pascale [facility] spacer) As directed loratadine 10 mg PO DAILY omeprazole 20 mg PO DAILY ondansetron 4 mg PO Q8H PRN 4 days polyethylene glycol 3350 (Miralax) 17 grams PO DAILY warfarin 7.5 mg See Protocol PO 2XW warfarin 10 mg See Protocol PO 5XW Nursing Note INR 1.5 out of therapeutic range 2.5-3.5 Medications and supplements reviewed Patient status: states no missed doses , he states he has been having more greens than usual. states he experiences sleep paralysis - he was advised to talk with Md Li about that - and will inform PCP with this results Medications or supplements: no changes Diet: good Denies any signs and symptoms of bleeding or clotting or unusual bruising Bleeding, bruising, clotting discussed Nutritional guidance given: avoid greens x 3 days, eat orange and reds to help raise the INR Dose: 10mg today and tomorrow 7.5mg all other days with f/u INR 04/20/24 lovenox per md orders - he states he has a few left F/U INR Date : this Tuesday04/20/24 ?? Patient verbalizing understanding of instructions given go to ER with any clot or stroke like symptoms T/c to PCP spoke with nurse Patel regarding pt status, concern for pt with stroke hx and plan or care and request for lvoenox per md orders . 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
== END 2024-04-17 16:23 | disposition home or self-care (01) ==
LOC: HO.ACS 14:48
PROVIDERS: PCP Registered Nurse; Visit Provider Internal Medicine
DX: Z79.01 Long term (current) use of anticoagulants (principal)

== ENCOUNTER → 2024-04-17 14:48 | Outpatient (BNVA) | payer OTHER, SELFPAY | PROVIDERS: PCP Registered Nurse; Visit Provider Internal Medicine | DX: Z95.2 Presence of prosthetic heart valve (principal); Z79.01 Long term (current) use of anticoagulants; Z51.81 Encounter for therapeutic drug level monitoring | CPT/HCPCS: 85610; 99211 ==

== ENCOUNTER 2024-04-24 13:12 | Outpatient (AMB) | payer OTHER, SELFPAY ==
--- NOTE | 2024-04-24 13:38 | MHC.OFFVISCO ---
Intake Intake Visit Reasons: Anticoagulation Allergies hydrocodone [From VICODIN] Allergy (Unknown, Verified 04/24/24 13:15) GI UPSET Medication List - Last Reconciled 04/24/24 by Kayla Alvarez RN acetaminophen 325 mg PO QID PRN 7 days acetaminophen ER (Tylenol Arthritis Pain) 1,300 mg PO Q8H PRN albuterol sulfate 90 mcg/actuation (ProAir HFA) 2 puffs inhalation Q4-6H PRN atorvastatin 20 mg PO DAILY blood pressure test kit-large As directed buprenorphine-naloxone 8-2 mg (Suboxone) 1 film sublingual BID fluticasone propionate 50 mcg/actuation sprays intranasal hydroxyzine pamoate 25 mg PO TID inhalational spacing device ([facility] spacer) As directed loratadine 10 mg PO DAILY omeprazole 20 mg PO DAILY ondansetron 4 mg PO Q8H PRN 4 days polyethylene glycol 3350 (Miralax) 17 grams PO DAILY warfarin 7.5 mg See Protocol PO 2XW warfarin 10 mg See Protocol PO 5XW Nursing Note INR 2.0?out of therapeutic range of 2.5-3.5 Medications and supplements reviewed Pt has been on lovenox for 1 week since last INR performed by [facility] was 1.5 Patient status: feels well Medications or supplements: no changes Diet: usual diet for pt Denies any signs and symptoms of bleeding or clotting or unusual bruising. Denies chest pain, shortness of breath, dizziness, blurred vision, headache, or weakness. Bleeding, bruising, clotting discussed Nutritional guidance given: Food list reviewed. Pt to avoid greens for 2 days Dose: increase today's dose to 10 mg (7.5mg) then resume usual dose of 7.5mg daily F/U INR Date : 1 week?? Patient verbalizing understanding of instructions given. [facility] called and critical result reported to Emmy. [facility] will call [facility] back to inform us if MD wants pt to continue lovenox. Anti-Coag Initial Assessment Social Hx Patient Tobacco Use Status: Former Tobacco user Tobacco use type: Cigarette alcohol intake: never Alcohol intake frequency: does not drink Questionnaires HAS-BLED Does the patient had uncontrolled Hypertension?: No Does the patient have renal disease?: No Does the patient have liver disease?: No Does the patient have a history of stroke?: Yes Has the patient had major bleeding or predisposition to bleeding?: Yes Does the patient have labile INRs?: Yes Is the patient over 65 years of age?: No Is the patient on medications that gives them a predisposition to bleeding?: Yes Does the patient use alcohol?: No HAS-BLED Score: 4 CHADSVASC Age: <65 Gender: Male Does the patient have a history of CHF?: No Does the patient have a history of Hypertension?: No Does the patient have a history of Stroke/TIA/Thromboembolism?: Yes Does the patient have a history of Vascular Disease (prior [place], PAD or aortic plaque)?: No Does the patient have a history of Diabetes?: No CHADS VACS Score: 2 Miladis Prediction Score Rsk VTE Active Cancer: No Previous VTE, excluding superficial vein thrombosis: No Reduced mobility: No Already known Thrombophilic Condition: Yes With-in last month Trauma and/or Surgery: No Elderly 70 year or older: No Heart and/or Respiratory Failure: No Acute Myocardial infarction and/or Ischemic Stroke: No Acute Infection and/or Rheumatologic Disorder: No Obesity (BMI 30 or greater): Yes Ongoing Hormonal Treatment: No Score: 4 Miladis Score less than 4; Low Risk of VTE Miladis Score 4 or greater; High Risk of VTE Coding Level of Care Code Est Patient Level 1 Diagnoses Current use of anticoagulant therapy Z79.01 Results AMB INR Fingerstick AMB INR Fingerstick 2.0 Last Edit by Kayla Alvarez RN on 04/24/24 13:33 interface delay Assessment & Plan Assessment & Plan (1) Current use of anticoagulant therapy: Code(s): Z79.01 - USP (current) use of anticoagulants
[2024-04-24 13:47] LABS: Prothrombin Time Whole Bld POC 24.2 sec (11.1-13.5)
== END 2024-04-24 14:03 | disposition home or self-care (01) ==
LOC: HO.ACS 13:12
PROVIDERS: PCP Registered Nurse; Visit Provider Internal Medicine
DX: Z79.01 Long term (current) use of anticoagulants (principal)

== ENCOUNTER → 2024-04-24 13:12 | Outpatient (BNVA) | payer OTHER, SELFPAY | PROVIDERS: PCP Registered Nurse; Visit Provider Internal Medicine | DX: Z95.2 Presence of prosthetic heart valve (principal); Z79.01 Long term (current) use of anticoagulants; Z51.81 Encounter for therapeutic drug level monitoring | CPT/HCPCS: 85610; 99211 ==

== ENCOUNTER 2024-04-30 13:49 | Outpatient (AMB) | payer OTHER, SELFPAY ==
--- NOTE | 2024-04-30 14:06 | MHC.OFFVISCO ---
Intake Intake Visit Reasons: Anticoagulation Allergies hydrocodone [From VICODIN] Allergy (Unknown, Verified 04/30/24 13:58) GI UPSET Medication List - Last Reconciled 04/30/24 by Grace Mccloud RN acetaminophen 325 mg PO QID PRN 7 days acetaminophen ER (Tylenol Arthritis Pain) 1,300 mg PO Q8H PRN albuterol sulfate 90 mcg/actuation (ProAir HFA) 2 puffs inhalation Q4-6H PRN atorvastatin 20 mg PO DAILY blood pressure test kit-large As directed buprenorphine-naloxone 8-2 mg (Suboxone) 1 film sublingual BID enoxaparin 100 mg subcut BID fluticasone propionate 50 mcg/actuation sprays intranasal hydroxyzine pamoate 25 mg PO TID inhalational spacing device ([employer] [facility] spacer) As directed loratadine 10 mg PO DAILY omeprazole 20 mg PO DAILY ondansetron 4 mg PO Q8H PRN 4 days polyethylene glycol 3350 (Miralax) 17 grams PO DAILY warfarin 7.5 mg See Protocol PO 2XW warfarin 10 mg See Protocol PO 5XW Nursing Note INR 2.0 out of therapeutic range 2.5-3.5 Medications and supplements reviewed Patient status: states he has not been sleeping well, denies any missed doses Medications or supplements: no changes per pt Diet: no changes per pt Denies any signs and symptoms of bleeding or clotting or unusual bruising Bleeding, bruising, clotting discussed Nutritional guidance given: avoid all greens for now, eat foods to help raise the INR today Dose: 1omg x 1 day/ 7.5mg x 6 days F/U INR Date : 05/02/24 - only day he could come back- will cont lovenox per md orders t/c to PCP triage critical result line- left msg with pt status and to call back for further instruction and with standing orders for lovenox ?? Patient verbalizing understanding of instructions given. 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
[2024-05-01 09:10] LABS: Prothrombin Time Whole Bld POC 23.9 sec (11.1-13.5)
== END 2024-04-30 14:18 | disposition home or self-care (01) ==
LOC: HO.ACS 13:49
PROVIDERS: PCP Registered Nurse; Visit Provider Internal Medicine
DX: Z79.01 Long term (current) use of anticoagulants (principal)

== ENCOUNTER → 2024-04-30 13:49 | Outpatient (BNVA) | payer OTHER, SELFPAY | PROVIDERS: PCP Registered Nurse; Visit Provider Internal Medicine | DX: Z95.2 Presence of prosthetic heart valve (principal); Z79.01 Long term (current) use of anticoagulants; Z51.81 Encounter for therapeutic drug level monitoring | CPT/HCPCS: 85610; 99211 ==

== ENCOUNTER 2024-05-02 14:09 | Outpatient (AMB) | payer OTHER, SELFPAY ==
--- NOTE | 2024-05-02 14:23 | MHC.OFFVISCO ---
Intake Intake Visit Reasons: Anticoagulation Allergies hydrocodone [From VICODIN] Allergy (Unknown, Verified 05/02/24 14:18) GI UPSET lovenox Adverse Reaction (Intermediate, Uncoded 05/02/24 14:36) Abdominal Pain Medication List - Last Reconciled 05/02/24 by Lindsay Couch RN acetaminophen 325 mg PO QID PRN 7 days acetaminophen ER (Tylenol Arthritis Pain) 1,300 mg PO Q8H PRN albuterol sulfate 90 mcg/actuation (ProAir HFA) 2 puffs inhalation Q4-6H PRN atorvastatin 20 mg PO DAILY blood pressure test kit-large As directed buprenorphine-naloxone 8-2 mg (Suboxone) 1 film sublingual BID enoxaparin 100 mg See Protocol subcut BID fluticasone propionate 50 mcg/actuation sprays intranasal hydroxyzine pamoate 25 mg PO TID inhalational spacing device ([employer] [facility] spacer) As directed loratadine 10 mg PO DAILY omeprazole 20 mg PO DAILY ondansetron 4 mg PO Q8H PRN 4 days polyethylene glycol 3350 (Miralax) 17 grams PO DAILY warfarin 7.5 mg See Protocol PO 2XW warfarin 10 mg See Protocol PO 5XW Nursing Note INR: 2.5- in therapeutic range 2.5-3.5 Medications and supplements reviewed- no changes No changes in health, diet, medications, or supplements, Denies any signs and symptoms of bleeding or bruising or clotting. Bleeding, bruising, clotting discussed Nutritional guidance given - no greens for 2 days, eat reds Dose: 7.5mg x 6, 10mg x 1 stop lovenox- pt reports nausea and diarrhea yesterdaY, pt ? from lovenox F/U INR: 1 week Patient verbalizes understanding of instructions given Anti-Coag Initial Assessment Social Hx Patient Tobacco Use Status: Former Tobacco user Tobacco use type: Cigarette alcohol intake: never Alcohol intake frequency: does not drink Coding Level of Care Code Est Patient Level 1 Diagnoses Current use of anticoagulant therapy Z79.01 Assessment & Plan Assessment & Plan (1) Current use of anticoagulant therapy: Code(s): Z79.01 - custodial (current) use of anticoagulants
[2024-05-02 14:24] LABS: Prothrombin Time Whole Bld POC 30.1 sec (11.1-13.5); ~PT, ~INR - Anti Coag Clinic 2.5 (0.9-1.1)
== END 2024-05-02 14:37 | disposition home or self-care (01) ==
LOC: HO.ACS 14:09
PROVIDERS: PCP Registered Nurse; Visit Provider Internal Medicine
DX: Z79.01 Long term (current) use of anticoagulants (principal)

== ENCOUNTER → 2024-05-02 14:09 | Outpatient (BNVA) | payer OTHER, SELFPAY | PROVIDERS: PCP Registered Nurse; Visit Provider Internal Medicine | DX: Z95.2 Presence of prosthetic heart valve (principal); Z79.01 Long term (current) use of anticoagulants; Z51.81 Encounter for therapeutic drug level monitoring | CPT/HCPCS: 85610; 99211 ==

== ENCOUNTER 2024-05-15 15:14 | Outpatient (AMB) | payer OTHER, SELFPAY ==
[2024-05-15 15:20] LABS: Prothrombin Time Whole Bld POC 24.6 sec (11.1-13.5)
--- NOTE | 2024-05-15 15:31 | MHC.OFFVISCO ---
Intake Intake Visit Reasons: Anticoagulation Allergies hydrocodone [From VICODIN] Allergy (Unknown, Verified 05/15/24 15:15) GI UPSET lovenox Adverse Reaction (Intermediate, Uncoded 05/15/24 15:15) Abdominal Pain Medication List - Last Reconciled 05/15/24 by Kayla Alvarez, RN acetaminophen 325 mg PO QID PRN 7 days acetaminophen ER (Tylenol Arthritis Pain) 1,300 mg PO Q8H PRN albuterol sulfate 90 mcg/actuation (ProAir HFA) 2 puffs inhalation Q4-6H PRN atorvastatin 20 mg PO DAILY blood pressure test kit-large As directed buprenorphine-naloxone 8-2 mg (Suboxone) 1 film sublingual BID fluticasone propionate 50 mcg/actuation sprays intranasal hydroxyzine pamoate 25 mg PO TID inhalational spacing device ([email or web address] Pascale [facility] spacer) As directed loratadine 10 mg PO DAILY omeprazole 20 mg PO DAILY ondansetron 4 mg PO Q8H PRN 4 days polyethylene glycol 3350 (Miralax) 17 grams PO DAILY warfarin 7.5 mg See Protocol PO 2XW warfarin 10 mg See Protocol PO 5XW Nursing Note INR 2.0?out of therapeutic range of 2.5-3.5 Medications and supplements reviewed: no changes Patient status: well Diet: usual diet for pt Denies any signs and symptoms of bleeding or clotting or unusual bruising Bleeding, bruising, clotting discussed Nutritional guidance given: avoid greens for 2 days, then retest Dose: increase dose next 2 days to 10mg (usual 7.5mg) then return for retest. Also start lovenox 2X/day starting today F/U INR Date : 05/17/24?? Patient verbalizing understanding of instructions given. [facility] called and critical value INR 2.0 reported with dosing plan and next retest date. Spoke to Amanda FERNÁNDEZ. 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
== END 2024-05-15 15:36 | disposition home or self-care (01) ==
LOC: HO.ACS 15:14
PROVIDERS: PCP Registered Nurse; Visit Provider Internal Medicine
DX: Z79.01 Long term (current) use of anticoagulants (principal)

== ENCOUNTER → 2024-05-15 15:14 | Outpatient (BNVA) | payer OTHER, SELFPAY | PROVIDERS: PCP Registered Nurse; Visit Provider Internal Medicine | DX: Z95.2 Presence of prosthetic heart valve (principal); Z79.01 Long term (current) use of anticoagulants; Z51.81 Encounter for therapeutic drug level monitoring | CPT/HCPCS: 85610; 99211 ==

== ENCOUNTER 2024-05-17 14:40 | Outpatient (AMB) | payer OTHER, SELFPAY ==
[2024-05-17 14:50] LABS: Prothrombin Time Whole Bld POC 26.6 sec (11.1-13.5); ~PT, ~INR - Anti Coag Clinic 2.2 (0.9-1.1)
--- NOTE | 2024-05-17 14:55 | MHC.OFFVISCO ---
Intake Intake Visit Reasons: Anticoagulation Allergies hydrocodone [From VICODIN] Allergy (Unknown, Verified 05/17/24 14:45) GI UPSET lovenox Adverse Reaction (Intermediate, Uncoded 05/17/24 14:45) Abdominal Pain Medication List - Last Reconciled 05/17/24 by Kayla Alvarez, RN acetaminophen 325 mg PO QID PRN 7 days acetaminophen ER (Tylenol Arthritis Pain) 1,300 mg PO Q8H PRN albuterol sulfate 90 mcg/actuation (ProAir HFA) 2 puffs inhalation Q4-6H PRN atorvastatin 20 mg PO DAILY blood pressure test kit-large As directed buprenorphine-naloxone 8-2 mg (Suboxone) 1 film sublingual BID fluticasone propionate 50 mcg/actuation sprays intranasal hydroxyzine pamoate 25 mg PO TID inhalational spacing device ([employer] Pascale [facility] spacer) As directed loratadine 10 mg PO DAILY omeprazole 20 mg PO DAILY ondansetron 4 mg PO Q8H PRN 4 days polyethylene glycol 3350 (Miralax) 17 grams PO DAILY warfarin 7.5 mg See Protocol PO 2XW warfarin 10 mg See Protocol PO 5XW Nursing Note INR 2.2?out of therapeutic range 2.5-3.5 Medications and supplements reviewed Patient status: well Medications or supplements: pt is taking lovenox bid until INR > 2.5 Diet: usual diet for pt but holding greens until INR > 2.5 Denies any signs and symptoms of bleeding or clotting or unusual bruising Bleeding, bruising, clotting discussed Nutritional guidance given: to continue to avoid greens and to have a serving of food from the list that raises the INR Dose: 10mg today (7.5mg) then resume usual dose of 7.5mg daily F/U INR Date : 4 days?? Patient verbalizing understanding of instructions given. Anti-Coag Initial Assessment Social Hx Patient Tobacco Use Status: Former Tobacco user Tobacco use type: Cigarette alcohol intake: never Alcohol intake frequency: does not drink Coding Level of Care Code Est Patient Level 1 Diagnoses Current use of anticoagulant therapy Z79.01 Assessment & Plan Assessment & Plan (1) Current use of anticoagulant therapy: Code(s): Z79.01 - alf (current) use of anticoagulants
== END 2024-05-17 15:00 | disposition home or self-care (01) ==
LOC: HO.ACS 14:40
PROVIDERS: PCP Registered Nurse; Visit Provider Internal Medicine
DX: Z79.01 Long term (current) use of anticoagulants (principal)

== ENCOUNTER → 2024-05-17 14:40 | Outpatient (BNVA) | payer OTHER, SELFPAY | PROVIDERS: PCP Registered Nurse; Visit Provider Internal Medicine | DX: Z95.2 Presence of prosthetic heart valve (principal); Z79.01 Long term (current) use of anticoagulants; Z51.81 Encounter for therapeutic drug level monitoring | CPT/HCPCS: 85610; 99211 ==

== ENCOUNTER 2024-05-24 09:18 | Outpatient (AMB) | payer OTHER, SELFPAY ==
--- NOTE | 2024-05-24 09:36 | MHC.OFFVISCO ---
Intake Intake Visit Reasons: Anticoagulation Allergies hydrocodone [From VICODIN] Allergy (Unknown, Verified 05/22/24 11:59) GI UPSET lovenox Adverse Reaction (Intermediate, Uncoded 05/22/24 11:59) Abdominal Pain Medication List - Last Reconciled 05/24/24 by Lindsay Couch RN acetaminophen 325 mg PO QID PRN 7 days acetaminophen ER (Tylenol Arthritis Pain) 1,300 mg PO Q8H PRN albuterol sulfate 90 mcg/actuation (ProAir HFA) 2 puffs inhalation Q4-6H PRN atorvastatin 20 mg PO DAILY blood pressure test kit-large As directed buprenorphine-naloxone 8-2 mg (Suboxone) 1 film sublingual BID fluticasone propionate 50 mcg/actuation sprays intranasal hydroxyzine pamoate 25 mg PO TID inhalational spacing device ([employer] Pascale [facility] spacer) As directed loratadine 10 mg PO DAILY omeprazole 20 mg PO DAILY ondansetron 4 mg PO Q8H PRN 4 days polyethylene glycol 3350 (Miralax) 17 grams PO DAILY warfarin 7.5 mg See Protocol PO 2XW warfarin 10 mg See Protocol PO 5XW Nursing Note INR 3.9-? out of therapeutic range of 2.5-3.5 Medications and supplements reviewed Patient status: pt on lovenox bid due to prev subtherapeutic inr's. pt states up all night with imer at [facility] ed Medications or supplements: no changes Diet: same, has been eating cherries Denies any signs and symptoms of bleeding or clotting or unusual bruising Bleeding, bruising, clotting discussed Nutritional guidance given: eat a green today, no reds for 2 days Dose: 5mg today then 7.5mg x 5, 10mg x 2 F/U INR Date : tue05/30/24 Patient verbalizing understanding of instructions given. Anti-Coag Initial Assessment Social Hx Patient Tobacco Use Status: Former Tobacco user Tobacco use type: Cigarette alcohol intake: never Alcohol intake frequency: does not drink Coding Level of Care Code Est Patient Level 1 Diagnoses Current use of anticoagulant therapy Z79.01 Assessment & Plan Assessment & Plan (1) Current use of anticoagulant therapy: Code(s): Z79.01 - longterm (current) use of anticoagulants
[2024-05-24 09:37] LABS: Prothrombin Time Whole Bld POC 46.2 sec (11.1-13.5); ~PT, ~INR - Anti Coag Clinic 3.9 (0.9-1.1)
== END 2024-05-24 09:48 | disposition home or self-care (01) ==
LOC: HO.ACS 09:18
PROVIDERS: PCP Registered Nurse; Visit Provider Internal Medicine
DX: Z79.01 Long term (current) use of anticoagulants (principal)

== ENCOUNTER → 2024-05-24 09:18 | Outpatient (BNVA) | payer OTHER, SELFPAY | PROVIDERS: PCP Registered Nurse; Visit Provider Internal Medicine | DX: Z95.2 Presence of prosthetic heart valve (principal); Z79.01 Long term (current) use of anticoagulants; Z51.81 Encounter for therapeutic drug level monitoring | CPT/HCPCS: 85610; 99211 ==

== ENCOUNTER 2024-05-30 09:21 | Outpatient (AMB) | payer OTHER, SELFPAY ==
[2024-05-30 09:33] LABS: Prothrombin Time Whole Bld POC 52.7 sec (11.1-13.5); ~PT, ~INR - Anti Coag Clinic 4.4 (0.9-1.1)
--- NOTE | 2024-05-30 09:39 | MHC.OFFVISCO ---
Intake Intake Visit Reasons: Anticoagulation Allergies hydrocodone [From VICODIN] Allergy (Unknown, Verified 05/30/24 09:28) GI UPSET lovenox Adverse Reaction (Intermediate, Uncoded 05/22/24 11:59) Abdominal Pain Medication List - Last Reconciled 05/30/24 by Trinh Giron RN acetaminophen 325 mg PO QID PRN 7 days acetaminophen ER (Tylenol Arthritis Pain) 1,300 mg PO Q8H PRN albuterol sulfate 90 mcg/actuation (ProAir HFA) 2 puffs inhalation Q4-6H PRN atorvastatin 20 mg PO DAILY blood pressure test kit-large As directed buprenorphine-naloxone 8-2 mg (Suboxone) 1 film sublingual BID fluticasone propionate 50 mcg/actuation sprays intranasal hydroxyzine pamoate 25 mg PO TID inhalational spacing device ([employer]asc[employer] [facility] spacer) As directed loratadine 10 mg PO DAILY omeprazole 20 mg PO DAILY ondansetron 4 mg PO Q8H PRN 4 days polyethylene glycol 3350 (Miralax) 17 grams PO DAILY warfarin 7.5 mg See Protocol PO 2XW warfarin 10 mg See Protocol PO 5XW Nursing Note NO CP,SOB,DIET/MED CHANGES,FALLS OR SX OF BLEEDING. HOLD WARFARIN TODAY THEN REDUCE WEEKLY DOSE AND FOLLOW-UP IN 1 WEEK. GOOD UNDERSTANDING OF DOSING INSTR. Anti-Coag Initial Assessment Social Hx Patient Tobacco Use Status: Former Tobacco user Tobacco use type: Cigarette alcohol intake: never Alcohol intake frequency: does not drink Coding Level of Care Code Est Patient Level 1 Diagnoses Current use of anticoagulant therapy Z79.01 Assessment & Plan Assessment & Plan (1) Current use of anticoagulant therapy: Code(s): Z79.01 - custodial (current) use of anticoagulants
== END 2024-05-30 09:40 | disposition home or self-care (01) ==
LOC: HO.ACS 09:21
PROVIDERS: PCP Registered Nurse; Visit Provider Internal Medicine
DX: Z79.01 Long term (current) use of anticoagulants (principal)

== ENCOUNTER → 2024-05-30 09:21 | Outpatient (BNVA) | payer OTHER, SELFPAY | PROVIDERS: PCP Registered Nurse; Visit Provider Internal Medicine | DX: Z95.2 Presence of prosthetic heart valve (principal); Z79.01 Long term (current) use of anticoagulants; Z51.81 Encounter for therapeutic drug level monitoring | CPT/HCPCS: 85610; 99211 ==

== ENCOUNTER 2024-05-31 20:41 | Emergency (ER) | payer OTHER, SELFPAY ==
--- NOTE | ~2024-05-31 | CT_ITS ---
EXAMINATION: CT head/brain wo IV con CLINICAL INFORMATION: Reason for Exam CM x 6 days, on warfarin COMPARISON: CT head without contrast 08/18/2022 TECHNIQUE: Contiguous axial imaging was performed from the skull base to vertex without intravenous contrast. Sagittal and coronal reformatted images were obtained. This CT examination was performed using dose optimization techniques as appropriate, variously including the following: * Automated exposure control * Adjustment of mA and/or kV according to patient size (this includes techniques or standardized protocols for targeted exams where dose is matched to indication/reason for exam; i.e. extremities or head) Use of iterative reconstruction technique DLP: 789 mGy-cm FINDINGS: No acute osseous or soft tissue abnormality. The mastoid air cells and visualized portions of the paranasal sinuses are well aerated. There are trace acute hyperdense subdural blood products along the floor of the right middle cranial fossa and extending along the lateral aspect of the right tentorial leaflet. There is no other evidence of acute intracranial hemorrhage or territorial infarction. No abnormal mass effect or midline shift is seen. Brooke to white matter differentiation is well preserved. No extra-axial fluid collections are identified. No hydrocephalus. No significant volume loss. There is no abnormal attenuation within the brain parenchyma. CT/CT head/brain wo IV con IMPRESSION: Trace acute subdural blood products along the floor of the right middle cranial fossa and extending along the lateral aspect of the right tentorial leaflet. No other acute intracranial abnormality. Above impression was communicated to Dr Hdez on 05/31/2024 9:47 PM
--- NOTE | 2024-05-31 20:43 | ED.GENADULT ---
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 with history of endocarditis in 08/28 while in the [facility] patient had intracerebral bleed came here for 1 week of headache mostly localized to the left side of the forehead with slight nausea and photosensitivity headache gets worse with head movements no upper respiratory symptoms no head injury or fall patient's INR was 4.4 yesterday skipped the dose yesterday and has not taken his Coumadin today patient does get headaches off and usually lasts only for a day or 2 this time headache was persistent for 1 week that brought him to the ER no vomiting no loss of consciousness no change in sensorium Related Data Home Medications ?Medication ?Instructions ?Recorded ?Confirmed acetaminophen 650 mg 1,300 mg PO Q8H PRN Pain 09/24/22 05/17/24 tablet,extended release (Tylenol Arthritis Pain) albuterol sulfate 90 mcg/actuation 2 puff inhalation Q4-6H PRN 09/24/22 05/17/24 aerosol inhaler (ProAir HFA) Wheezing buprenorphine 8 mg-naloxone 2 mg 1 film sublingual BID 09/24/22 05/17/24 sublingual film (Suboxone) loratadine 10 mg tablet 10 mg PO DAILY 09/24/22 05/17/24 inhalational spacing device #1 ea 09/29/22 05/17/24 (Raghav Ashraf [facility] spacer) polyethylene glycol 3350 17 17 g PO DAILY 04/08/23 05/17/24 gram/dose oral powder (Miralax) warfarin 5 mg tablet 10 mg PO 5XW 04/21/23 05/30/24 warfarin 7.5 mg tablet 7.5 mg PO 2XW 04/21/23 05/30/24 atorvastatin 20 mg tablet 20 mg PO DAILY 06/08/23 05/17/24 hydroxyzine pamoate 25 mg capsule 25 mg PO TID 10/21/23 05/17/24 blood pressure test kit-large #1 ea 12/16/23 05/17/24 fluticasone propionate 50 spray intranasal 02/02/24 05/17/24 mcg/actuation nasal spray,suspension Previous Rx's ?Medication ?Instructions ?Recorded acetaminophen 325 mg capsule 325 mg PO QID PRN pain 7 days #28 08/15/23 caps ondansetron 4 mg disintegrating 4 mg PO Q8H PRN nausea and 12/25/23 tablet vomiting 4 days #7 tabs omeprazole 20 mg capsule,delayed 20 mg PO DAILY #30 caps 02/02/24 release methylprednisolone 4 mg tablets in 4 mg PO QAM #21 ea 05/31/24 a dose pack (Medrol (Mitchell)) Allergies Allergy/AdvReac Type Severity Reaction Status Date / Time hydrocodone [From VICODIN] Allergy Unknown GI UPSET Verified 05/31/24 20:47 lovenox AdvReac Intermediate Abdominal Uncoded 05/22/24 11:59 Pain Review of Systems Review of Systems: Yes all other systems are reviewed and are negative [facility] Past Medical History Medical History Anticoagulant causing adverse effect in therapeutic use CVA (cerebrovascular accident due to intracerebral hemorrhage) Endocarditis of prosthetic mitral valve SIRS (systemic inflammatory response syndrome) Myalgia Opioid use disorder Fracture of proximal end of humerus Asthma Current use of anticoagulant therapy Surgical History History of heart valve replacement with mechanical valve Heart valve replaced Presence of other heart-valve replacement Family History Family History Father Diabetes Mother H/O thyroid disease Social History Social History Household Members: Family Household Members Other:: 3 kids Housing: Apartment Do you presently have visiting nurse or other home services: No Alcohol intake: never Patient Tobacco Use Status: Former Tobacco user Tobacco use type: Cigarette Smoked in Last 30 Days: No Use of substances other than those prescribed or required for medical reasons: No Substance Use Type: Former Substance User and Other Advance Directives: No Advance Directives Information Provided: Yes Do you have a plan to hurt others: No Plan service: No Current occupational status: unemployed and disabled 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 Oriented X3. No acute distress. Eyes: PERRLA, No Nystagmus ENT: Pharynx normal. Oral Mucosa moist Neck: Normal inspection. Neck supple. CVS: Normal heart rate and rhythm. Pulses normal. Respiratory: No respiratory distress. Equal air entry bilateral, no wheezing/rales/rhonchi Abdomen: Soft and nontender. Bowel sounds are present, no mass palpable, no CVA tenderness Skin: Skin warm and dry. Normal skin color. Normal skin turgor. Extremities: No lower extremity edema. No calf tenderness Neuro: Oriented X 3. No motor deficit. No sensory deficit.No cerebellar signs , cranial nerves II-XII intact GCS 15 Course Course Course Narrative: This is a rapid medical exam performed by Vivienne Jaramillo NP: Additional HPI, ROS, PE not included below will be deferred to primary provider. Patient is a 38-year-old male with history of CVA (intracerebral hemorrhage) in 2021, asthma, currently on warfarin presenting to the emergency department with complaint of headache since last Tuesday. Also complains of low back pain. Rates headache at 8 or 9/10. Took Tylenol earlier and CM goes away and keeps coming back. INR yesterday was 4.4. Plan: CT head Medications Administered Discontinued Medications Generic Name Dose Route Start Last Admin Trade Name Jarod PRN Reason Stop Dose Admin Acetaminophen 650 mg 05/31/24 21:49 05/31/24 22:00 Acetaminophen 325 Mg Tablet PO 05/31/24 21:50 650 mg ONCE ONE Administration Ondansetron HCl 4 mg 05/31/24 21:43 05/31/24 22:01 Ondansetron Odt 4 Mg Tab.Rapdis TRANSLINGU 05/31/24 21:44 4 mg ONCE ONE Administration Oxycodone HCl 5 mg 05/31/24 21:49 05/31/24 22:00 Oxycodone Hcl Immed Release 5 Mg Tablet PO 05/31/24 21:50 5 mg ONCE ONE Administration Medical Decision Making Medical Decision Making MDM Narrative: Patient with small amount of infratentorial subdural bleed with GCS of 15 case discussed with Neurosurgery at [facility] under advised to use Medrol Dosepak no need for reversal of anticoagulation advised to follow up in the office in [address] scan also had was Medrol Dosepak Differential Diagnosis Differential Diagnoses: The differential diagnosis associated with the presentation includes Intracerebral bleed/subdural hematoma/migraine headache Admission/Observation Consideration of admission/observation: Escalation of care including admission/observation considered Lab Data [facility] Lab Attestation statement: I reviewed the patient's lab results. 05/31/24 21:16 05/31/24 21:16 Labs: Lab Results 05/31/24 Range/Units 21:16 WBC 6.3 (4.8-10.8) X10*3/uL RBC 5.52 (4.60-5.80) X10*6/uL Hgb 14.4 (14.0-18.0) g/dl Hct 44.1 (42.0-52.0) % MCV 79.9 L (80.0-98.0) fL MCH 26.1 L (27.0-33.0) pg MCHC 32.7 (31.0-36.0) g/dl RDW 13.2 (11.0-16.0) % Plt Count 303 (160-400) X10*3/uL MPV 10.4 (9.4-12.4) fL Immature Gran % (Auto) 0.2 (0.0-0.4) % Neut % (Auto) 71.8 (45-73) % Lymph % (Auto) 18.5 L (20-40) % [place] % (Auto) 8.2 (2-11) % Eos % (Auto) 1.0 (0-4) % Baso % (Auto) 0.3 (0-2) % Lymph # (Auto) 1.2 (1.2-4.9) X10*3/uL [place] # (Auto) 0.5 (0.1-1.2) X10*3/uL Eos # (Auto) 0.1 (0.0-0.4) X10*3/uL Baso # (Auto) 0.0 (0.0-0.2) X10*3/uL Abs Immat Gran (auto) 0.01 (0.00-0.03) X10*3/uL Absolute Neuts (auto) 4.5 (2.0-8.3) x10*3/uL Absolute Nucleated RBC 0.000 (0.0-0.012) X10*3/uL Nucleated RBC % (auto) 0.0 (0.0-0.2) /100WBC PT 33.2 H D (11.1-13.3) SEC INR 2.7 H (0.9-1.1) Sodium 140 (135-145) mmol/L Potassium 3.9 (3.3-5.1) mmol/L Chloride 108 (96-108) mmol/L Carbon Dioxide 23 (22-29) mmol/L Anion Gap 13 (12-20) BUN 13 (9-16) mg/dL Creatinine 0.88 (0.5-1.4) mg/dL Estim Creat Clear Calc 154.6 Estimated GFR > 60 Random Glucose 95 (60-115) mg/dL Calcium 9.0 (8.4-10.2) mg/dL Total Bilirubin 0.5 (0.0-1.0) mg/dL AST 23 (5-37) U/L ALT 42 H (0-40) U/L Alkaline Phosphatase 118 H (39-117) U/L Total Protein 7.4 (6.5-8.0) g/dL Albumin 4.1 (3.5-5.0) g/dL Independent Interpretation I performed an independent interpretation of an: CT Scan Radiology Impression Discussion of test interpretation with radiology: I have reviewed the radiologist's reading. Radiologist Impression: [place] [id number] CT Scan Report Signed Patient: Ludin Mendes MR#: [id number] : 1985 Acct:[id number] Age/Sex: 38 / M ADM Date: 05/31/24 Loc: HO.ED Attending Dr: Ordering Physician: Kindra Jaramillo NP Date of Service: 05/31/24 Procedure(s): CT head/brain wo IV con Accession Number(s): [id number] cc: Physician,Unknown ; Kindra Jaramillo NP~ EXAMINATION: CT head/brain wo IV con CLINICAL INFORMATION: Reason for Exam CM x 6 days, on warfarin COMPARISON: CT head without contrast 08/18/2022 TECHNIQUE: Contiguous axial imaging was performed from the skull base to vertex without intravenous contrast. Sagittal and coronal reformatted images were obtained. This CT examination was performed using dose optimization techniques as appropriate, variously including the following: * Automated exposure control * Adjustment of mA and/or kV according to patient size (this includes techniques or standardized protocols for targeted exams where dose is matched to indication/reason for exam; i.e. extremities or head) Use of iterative reconstruction technique DLP: 789 mGy-cm FINDINGS: No acute osseous or soft tissue abnormality. The mastoid air cells and visualized portions of the paranasal sinuses are well aerated. There are trace acute hyperdense subdural blood products along the floor of the right middle cranial fossa and extending along the lateral aspect of the right tentorial leaflet. There is no other evidence of acute intracranial hemorrhage or territorial infarction. No abnormal mass effect or midline shift is seen. Brooke to white matter differentiation is well preserved. No extra-axial fluid collections are identified. No hydrocephalus. No significant volume loss. There is no abnormal attenuation within the brain parenchyma. CT/CT head/brain wo IV con IMPRESSION: Trace acute subdural blood products along the floor of the right middle cranial fossa and extending along the lateral aspect of the right tentorial leaflet. No other acute intracranial abnormality. Above impression was communicated to Dr Hdez on 05/31/2024 9:47 PM Critical Care Time Critical Care Time Critical Care Time: Yes Total Critical Care Time: 35 Attestation: The patient was critically ill with a high probability of imminent or life threatening deterioration. I spent greater than 40??minutes of discontinuous time evaluating the patient,delivering critical care at the bedside, discussing and evaluating pertinent data with consultants. Critical care time does not include time spent performing separately billable procedures or teaching. Total time spent performing critical care was 35???minutes. Discharge Plan Discharge Clinical Impression: Subdural bleeding Patient Disposition: Home, Self-Care Instructions: Intracranial Hematoma (DC) Additional Instructions: You have very small amount of bleeding outside the brain at the base of right side of the brain Hold your Coumadin today and Continue Coumadin from tomorrow Tylenol for headache Report to the ER if worsening of the headache Follow up with neurosurgeon Dr. Mendoza in 1 week, their office will call you tomorrow Prescriptions: New methylprednisolone [Medrol (Mitchell)] 4 mg tablets,dose pack 4 mg PO QAM Qty: 21 0RF Rx Instructions: Use as directed on the package No Action warfarin 5 mg tablet 10 mg PO 5XW Hold Instructions: Doctor's Order Protocol: Dose Management Condition: Tuesday (Week One) Dose/Route: 10 mg Instruction: 2 x 5 mg tablets Condition: Tuesday Dose/Route: 7.5 mg Instruction: 1 x 7.5 mg tablet Condition: Tuesday Dose/Route: 7.5 mg Instruction: 1 x 7.5 mg tablet Condition: Tuesday Dose/Route: 0 mg Instruction: 0 tablets Condition: Dose/Route: 7.5 mg Instruction: 1 x 7.5 mg tablet Condition: Tuesday Dose/Route: 7.5 mg Instruction: 1 x 7.5 mg tablet Condition: Tuesday Dose/Route: 7.5 mg Instruction: 1 x 7.5 mg tablet Condition: Tuesday ( Two) Dose/Route: 10 mg Instruction: 2 x 5 mg tablets Condition: Tuesday Dose/Route: 7.5 mg Instruction: 1 x 7.5 mg tablet Condition: Tuesday Dose/Route: 7.5 mg Instruction: 1 x 7.5 mg tablet Condition: Tuesday Dose/Route: 7.5 mg Instruction: 1 x 7.5 mg tablet Condition: Dose/Route: 7.5 mg Instruction: 1 x 7.5 mg tablet Condition: Tuesday Dose/Route: 7.5 mg Instruction: 1 x 7.5 mg tablet Condition: Tuesday Dose/Route: 7.5 mg Instruction: 1 x 7.5 mg tablet Protocol Text: Adjustment Start Date: Tuesday05/30/24 INR Value: 4.4 INR Date: 05/30/24 Recheck Date: 06/07/24 warfarin 7.5 mg tablet 7.5 mg PO 2XW Hold Instructions: Doctor's Order Protocol: Dose Management Condition: Tuesday (Week One) Dose/Route: 10 mg Instruction: 2 x 5 mg tablets Condition: Tuesday Dose/Route: 7.5 mg Instruction: 1 x 7.5 mg tablet Condition: Tuesday Dose/Route: 7.5 mg Instruction: 1 x 7.5 mg tablet Condition: Tuesday Dose/Route: 0 mg Instruction: 0 tablets Condition: Dose/Route: 7.5 mg Instruction: 1 x 7.5 mg tablet Condition: Tuesday Dose/Route: 7.5 mg Instruction: 1 x 7.5 mg tablet Condition: Tuesday Dose/Route: 7.5 mg Instruction: 1 x 7.5 mg tablet Condition: Tuesday (Week Two) Dose/Route: 10 mg Instruction: 2 x 5 mg tablets Condition: Tuesday Dose/Route: 7.5 mg Instruction: 1 x 7.5 mg tablet Condition: Tuesday Dose/Route: 7.5 mg Instruction: 1 x 7.5 mg tablet Condition: Tuesday Dose/Route: 7.5 mg Instruction: 1 x 7.5 mg tablet Condition: Dose/Route: 7.5 mg Instruction: 1 x 7.5 mg tablet Condition: Tuesday Dose/Route: 7.5 mg Instruction: 1 x 7.5 mg tablet Condition: Tuesday Dose/Route: 7.5 mg Instruction: 1 x 7.5 mg tablet Protocol Text: Adjustment Start Date: Tuesday05/30/24 INR Value: 4.4 INR Date: 05/30/24 Recheck Date: 06/07/24 ondansetron 4 mg tablet,disintegrating 4 mg PO Q8H PRN (Reason: nausea and vomiting) 4 Days Qty: 7 0RF acetaminophen 325 mg capsule 325 mg PO QID PRN (Reason: pain) 7 Days Qty: 28 0RF loratadine 10 mg tablet 10 mg PO DAILY albuterol sulfate [ProAir HFA] 90 mcg/actuation HFA aerosol inhaler 2 puff inhalation Q4-6H PRN (Reason: Wheezing) buprenorphine-naloxone [Suboxone] 8-2 mg film 1 film sublingual BID acetaminophen [Tylenol Arthritis Pain] 650 mg tablet extended release 1,300 mg PO Q8H PRN (Reason: Pain) (DME) Raghav Ashraf [facility] Spacer See Rx Instructions .ROUTE .MEDSUPPLY Qty: 1 Rx Instructions: As directed polyethylene glycol 3350 [Miralax] 17 gram/dose powder 17 g PO DAILY atorvastatin 20 mg tablet 20 mg PO DAILY hydroxyzine pamoate 25 mg capsule 25 mg PO TID (DME) blood pressure test kit-large Kit See Rx Instructions .ROUTE BID Qty: 1 Rx Instructions: As directed fluticasone propionate 50 mcg/actuation spray,suspension intranasal omeprazole 20 mg capsule,delayed release(DR/EC) 20 mg PO DAILY Qty: 30 5RF Referrals: Justa Mendoza MD [Physician] - 1 week Interventions: ED Discharge Assessment Last Done: 05/31/24 23:01 Discharge Date/Time: 05/31/24 23:02 Print Language: Mongolian
[2024-05-31 20:45] VITALS: BP 128/65; PULSE 84; RESP 18; TEMP 36.9; O2SAT 96; BMI 31.2
[2024-05-31 21:09] VITALS: BP 123/65; PULSE 87; RESP 16; TEMP 36.9; O2SAT 95
--- NOTE | 2024-05-31 21:17 | PC.NURSE ---
CT scan completed, patient changed into a hospital attire, labs drawn and sent to lab. Patient is alert and oriented x3, VSS. Patient reports intermittent,frontal headache with nausea, no vomiting x6 days. Patient has been managing headache with Tylenol with fair relief. Patient denies dizziness/lightheadedness/changes in vision/unilateral weakness. Patient is on Coumadin, last INR 4.4 yesterday. Hx of brain bleed in 2021.
[2024-05-31 21:24] LABS: MANUAL DIFF FLAG NO
[2024-05-31 21:25] LABS: Basophils Percent Auto 0.3 % (0-2); Eosinophils Absolute Auto 0.1 X10*3/uL (0.0-0.4); Hematocrit 44.1 % (42.0-52.0); Hemoglobin 14.4 g/dl (14.0-18.0); Imm Gran Abs Auto 0.01 X10*3/uL (0.00-0.03); Imm Gran Pct Auto 0.2 % (0.0-0.4); Lymphocytes Absolute Auto 1.2 X10*3/uL (1.2-4.9); Lymphocytes Percent Auto 18.5 % (20-40); Mean Corpuscular HGB Conc 32.7 g/dl (31.0-36.0); Mean Corpuscular Hemoglobin 26.1 pg (27.0-33.0); Mean Corpuscular Volume 79.9 fL (80.0-98.0); Mean Platelet Volume 10.4 fL (9.4-12.4); Monocytes Absolute Auto 0.5 X10*3/uL (0.1-1.2); Monocytes Percent Auto 8.2 % (2-11); Neutrophils Absolute Auto 4.5 x10*3/uL (2.0-8.3); Neutrophils Percent Auto 71.8 % (45-73); Platelet Count 303 X10*3/uL (160-400); Red Blood Count 5.52 X10*6/uL (4.60-5.80); Red Cell Distribution Width 13.2 % (11.0-16.0); White Blood Count 6.3 X10*3/uL (4.8-10.8)
[2024-05-31 21:48] LABS: Alanine Aminotransferase 42 U/L (0-40); Albumin Level 4.1 g/dL (3.5-5.0); Alkaline Phosphatase 118 U/L (39-117); Anion Gap 13 (12-20); Aspartate Amino Transferase 23 U/L (5-37); Bilirubin Total 0.5 mg/dL (0.0-1.0); Blood Urea Nitrogen 13 mg/dL (9-16); Carbon Dioxide 23 mmol/L (22-29); Chloride 108 mmol/L (96-108); Creatinine Clr Calc Pharmacy 154.6; Estimated Glomerular Filt Rate > 60; Glucose Random 95 mg/dL (60-115); INTERNATIONAL NORM RATIO 2.7 (0.9-1.1); Potassium 3.9 mmol/L (3.3-5.1); Prothrombin Time 33.2 SEC (11.1-13.3); Sodium 140 mmol/L (135-145); Total Protein 7.4 g/dL (6.5-8.0)
[2024-05-31] MEDS: oxyCODONE HCl Immed Release 5 MG TABLET PO (22:00)
[2024-05-31] MEDS: Acetaminophen 325 MG TABLET 650 MG PO (22:00)
[2024-05-31] MEDS: Ondansetron ODT 4 MG TAB.RAPDIS TRANSLINGU (22:01)
[2024-05-31 23:01] VITALS: BP 120/56; PULSE 83; RESP 16; TEMP 36.7; O2SAT 98
== END 2024-05-31 23:02 | disposition home or self-care (01) ==
PROVIDERS: Emergency Provider Internal Medicine; PCP Registered Nurse
DX: I62.00 Nontraumatic subdural hemorrhage, unspecified (principal); R51.9 Headache, unspecified; R40.2410 Glasgow coma scale score 13-15, unspecified time; Z79.899 Other long term (current) drug therapy; Z79.01 Long term (current) use of anticoagulants
CPT/HCPCS: 36415; 70450; 80053; 85025; 85610; 99284

== ENCOUNTER 2024-06-07 09:41 | Outpatient (AMB) | payer OTHER, SELFPAY ==
[2024-06-07 09:53] LABS: Prothrombin Time Whole Bld POC 21.8 sec (11.1-13.5); ~PT, ~INR - Anti Coag Clinic 1.8 (0.9-1.1)
--- NOTE | 2024-06-07 10:07 | MHC.OFFVISCO ---
Intake Intake Visit Reasons: Anticoagulation Allergies hydrocodone [From VICODIN] Allergy (Unknown, Verified 06/07/24 09:43) GI UPSET lovenox Adverse Reaction (Intermediate, Uncoded 06/07/24 09:43) Abdominal Pain Medication List - Last Reconciled 06/07/24 by Grace Mccloud RN acetaminophen 325 mg PO QID PRN 7 days acetaminophen ER (Tylenol Arthritis Pain) 1,300 mg PO Q8H PRN albuterol sulfate 90 mcg/actuation (ProAir HFA) 2 puffs inhalation Q4-6H PRN atorvastatin 20 mg PO DAILY blood pressure test kit-large As directed buprenorphine-naloxone 8-2 mg (Suboxone) 1 film sublingual BID fluticasone propionate 50 mcg/actuation sprays intranasal hydroxyzine pamoate 25 mg PO TID inhalational spacing device (OptiChamber Pascale [facility] spacer) As directed loratadine 10 mg PO DAILY methylprednisolone (Medrol (Mitchell)) 4 mg PO QAM omeprazole 20 mg PO DAILY ondansetron 4 mg PO Q8H PRN 4 days polyethylene glycol 3350 (Miralax) 17 grams PO DAILY warfarin 7.5 mg See Protocol PO 2XW warfarin 10 mg See Protocol PO 5XW Nursing Note INR 1.8 out of therapeutic range 2.5-3.5 Medications and supplements reviewed Patient status: 05/31/24 WENT TO ER WITH CM WITH EXTREME PAIN WITH ANY MOVEMENT: INR WAS 4.4 DAY BEFORE AND WARFARIN WAS HELD, HE WAS FOUND TO HAVE SMALL BRAIN BLEED, WARFARIN WAS HELD AGAIN MAY 31, 2024 , HE ALSO C/O OF EXTREME SCIATIC PAIN DOWN BOTH LEGS, HAS F/U APPT WITH NEURO TOMORROW Medications or supplements: NO CHANGES Diet: GOOD Denies any signs and symptoms of bleeding or clotting or unusual bruising Bleeding, bruising, clotting discussed Nutritional guidance given: AVOID GREENS TODAY Dose: UNCERTAIN AT THIS TIME, CALL TO NEUROLOGY 10:08 AM: 10:18 ON HOLD F/U INR Date: TOMORROW 06/08/24?? PT INSTRUCTED TO GO TO ER WITH ANY WORSENING SYMPTOMS Patient verbalizing understanding of instructions given. 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
== END 2024-06-07 10:23 | disposition home or self-care (01) ==
LOC: HO.ACS 09:41
PROVIDERS: PCP Student in an Organized Health Care Education/Training Program; Visit Provider Internal Medicine
DX: Z79.01 Long term (current) use of anticoagulants (principal)

== ENCOUNTER → 2024-06-07 09:41 | Outpatient (BNVA) | payer OTHER, SELFPAY | PROVIDERS: Visit Provider Internal Medicine | DX: Z95.2 Presence of prosthetic heart valve (principal); Z79.01 Long term (current) use of anticoagulants; Z51.81 Encounter for therapeutic drug level monitoring | CPT/HCPCS: 85610; 99212 ==

== ENCOUNTER 2024-06-08 13:33 | Outpatient (AMB) | payer OTHER, SELFPAY ==
[2024-06-08 13:49] LABS: Prothrombin Time Whole Bld POC 27.6 sec (11.1-13.5); ~PT, ~INR - Anti Coag Clinic 2.3 (0.9-1.1)
--- NOTE | 2024-06-08 13:53 | MHC.OFFVISCO ---
Intake Intake Visit Reasons: Anticoagulation Allergies hydrocodone [From VICODIN] Allergy (Unknown, Verified 06/08/24 13:44) GI UPSET lovenox Adverse Reaction (Intermediate, Uncoded 06/08/24 13:44) Abdominal Pain Medication List - Last Reconciled 06/08/24 by Grace Mccloud RN acetaminophen 325 mg PO QID PRN 7 days acetaminophen ER (Tylenol Arthritis Pain) 1,300 mg PO Q8H PRN albuterol sulfate 90 mcg/actuation (ProAir HFA) 2 puffs inhalation Q4-6H PRN atorvastatin 20 mg PO DAILY blood pressure test kit-large As directed buprenorphine-naloxone 8-2 mg (Suboxone) 1 film sublingual BID fluticasone propionate 50 mcg/actuation sprays intranasal hydroxyzine pamoate 25 mg PO TID inhalational spacing device (OptiChamber Pascale [facility] spacer) As directed loratadine 10 mg PO DAILY methylprednisolone (Medrol (Mitchell)) 4 mg PO QAM omeprazole 20 mg PO DAILY ondansetron 4 mg PO Q8H PRN 4 days polyethylene glycol 3350 (Miralax) 17 grams PO DAILY warfarin 7.5 mg See Protocol PO 2XW warfarin 10 mg See Protocol PO 5XW Nursing Note pt had INR 4.4 on 05/30/24 brain bleed 05/31/27 INR 2.5 IN ER, JÚNIOR GARCIA, 06/07/24 INR 1.8 - MD IS AWARE INR 2.3? out of therapeutic range 2.5-3.5 Medications and supplements reviewed Patient status: States headache still coming and going and legs are a little better Medications or supplements: no changes - enc to call with any changes Diet: good - when he doesnt have a headache Denies any signs and symptoms of bleeding or clotting or unusual bruising Bleeding, bruising, clotting discussed Nutritional guidance given: avoid greens today Dose: keep same dose for now 10mg x 1 day/ 7.5mg x 6 days - no booster dose due to previous INR 4.4 on 05/30/24 and brain bleed F/U INR Date : 06/12/24 ?? GAVE MSG TO NEURO TO CALL [facility] WITH PLAN OF CARE Patient verbalizing understanding of instructions given. Anti-Coag Initial Assessment Social Hx Patient Tobacco Use Status: Former Tobacco user Tobacco use type: Cigarette alcohol intake: never Alcohol intake frequency: does not drink Questionnaires HAS-BLED Does the patient had uncontrolled Hypertension?: No Does the patient have renal disease?: No Does the patient have liver disease?: No Does the patient have a history of stroke?: Yes Has the patient had major bleeding or predisposition to bleeding?: Yes Does the patient have labile INRs?: Yes Is the patient over 65 years of age?: No Is the patient on medications that gives them a predisposition to bleeding?: Yes Does the patient use alcohol?: No HAS-BLED Score: 4 CHADSVASC Age: <65 Gender: Male Does the patient have a history of CHF?: No Does the patient have a history of Hypertension?: Yes Does the patient have a history of Stroke/TIA/Thromboembolism?: Yes Does the patient have a history of Vascular Disease (prior IL, PAD or aortic plaque)?: Yes (BRAIN BLEED X 2 ) Does the patient have a history of Diabetes?: No CHADS VACS Score: 4 Miladis Prediction Score Rsk VTE Active Cancer: No Previous VTE, excluding superficial vein thrombosis: No Reduced mobility: No Already known Thrombophilic Condition: No With-in last month Trauma and/or Surgery: No Elderly 70 year or older: No Heart and/or Respiratory Failure: No Acute Myocardial infarction and/or Ischemic Stroke: Yes Acute Infection and/or Rheumatologic Disorder: No Obesity (BMI 30 or greater): Yes Ongoing Hormonal Treatment: No Score: 2 Miladis Score less than 4; Low Risk of VTE Miladis Score 4 or greater; High Risk of VTE Coding Level of Care Code Est Patient Level 1 Diagnoses Current use of anticoagulant therapy Z79.01 Results AMB INR Fingerstick AMB INR Fingerstick 2.3 Last Edit by Grace Mccloud RN on 06/08/24 13:49 MANUAL ENTRY Assessment & Plan Assessment & Plan (1) Current use of anticoagulant therapy: Code(s): 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
== END 2024-06-08 14:05 | disposition home or self-care (01) ==
LOC: HO.ACS 13:33
PROVIDERS: PCP Student in an Organized Health Care Education/Training Program; Visit Provider Internal Medicine
DX: Z79.01 Long term (current) use of anticoagulants (principal)

== ENCOUNTER → 2024-06-08 13:33 | Outpatient (BNVA) | payer OTHER, SELFPAY | PROVIDERS: PCP Student in an Organized Health Care Education/Training Program; Visit Provider Internal Medicine | DX: Z95.2 Presence of prosthetic heart valve (principal); Z79.01 Long term (current) use of anticoagulants; Z51.81 Encounter for therapeutic drug level monitoring | CPT/HCPCS: 85610; 99211 ==

== ENCOUNTER 2024-06-13 14:16 | Outpatient (AMB) | payer OTHER, SELFPAY ==
--- NOTE | 2024-06-13 14:41 | MHC.OFFVISCO ---
Intake Intake Visit Reasons: Anticoagulation Allergies hydrocodone [From VICODIN] Allergy (Unknown, Verified 06/13/24 14:37) GI UPSET lovenox Adverse Reaction (Intermediate, Uncoded 06/13/24 14:37) Abdominal Pain Medication List - Last Reconciled 06/13/24 by Lindsay Couch RN acetaminophen 325 mg PO QID PRN 7 days acetaminophen ER (Tylenol Arthritis Pain) 1,300 mg PO Q8H PRN albuterol sulfate 90 mcg/actuation (ProAir HFA) 2 puffs inhalation Q4-6H PRN atorvastatin 20 mg PO DAILY blood pressure test kit-large As directed buprenorphine-naloxone 8-2 mg (Suboxone) 1 film sublingual BID fluticasone propionate 50 mcg/actuation sprays intranasal hydroxyzine pamoate 25 mg PO TID inhalational spacing device ([employer] Pascale [facility] spacer) As directed loratadine 10 mg PO DAILY methylprednisolone (Medrol (Mitchell)) 4 mg PO QAM omeprazole 20 mg PO DAILY ondansetron 4 mg PO Q8H PRN 4 days polyethylene glycol 3350 (Miralax) 17 grams PO DAILY warfarin 7.5 mg See Protocol PO 2XW warfarin 10 mg See Protocol PO 5XW Nursing Note INR 3.7-?? out of therapeutic range of 2.5-3.5 Medications and supplements reviewed Patient status: pt with prev brain bleed, cont with headache, awaiting CT scan and neurology appt Medications or supplements: no changes Diet: appetite is good Denies any signs and symptoms of bleeding or clotting or unusual bruising Bleeding, bruising, clotting discussed - pt instructed to go to ed with any further headaches Nutritional guidance given: greens to lower Dose: pt already took warfarin today, reduce tomm to 5mg then reduce weekly dosing to 7.5mg x 7 F/U INR Date : tue06/18/24? Patient verbalizing understanding of instructions given. Anti-Coag Initial Assessment Social Hx Patient Tobacco Use Status: Former Tobacco user Tobacco use type: Cigarette alcohol intake: never Alcohol intake frequency: does not drink Coding Level of Care Code Est Patient Level 2 Diagnoses Current use of anticoagulant therapy Z79.01 Assessment & Plan Assessment & Plan (1) Current use of anticoagulant therapy: Code(s): Z79.01 - long term care pharmacist (current) use of anticoagulants
[2024-06-13 14:42] LABS: Prothrombin Time Whole Bld POC 44.3 sec (11.1-13.5); ~PT, ~INR - Anti Coag Clinic 3.7 (0.9-1.1)
== END 2024-06-13 15:29 | disposition home or self-care (01) ==
LOC: HO.ACS 14:16
PROVIDERS: PCP Student in an Organized Health Care Education/Training Program; Visit Provider Internal Medicine
DX: Z79.01 Long term (current) use of anticoagulants (principal)

== ENCOUNTER → 2024-06-13 14:16 | Outpatient (BNVA) | payer OTHER, SELFPAY | PROVIDERS: PCP Student in an Organized Health Care Education/Training Program; Visit Provider Internal Medicine | DX: Z95.2 Presence of prosthetic heart valve (principal); Z79.01 Long term (current) use of anticoagulants; Z51.81 Encounter for therapeutic drug level monitoring | CPT/HCPCS: 85610; 99212 ==

== ENCOUNTER 2024-07-03 15:10 | Outpatient (REF) | payer OTHER, SELFPAY ==
[2024-07-03 15:42] LABS: INTERNATIONAL NORM RATIO 4.6 (0.9-1.1)
[2024-07-03 15:43] LABS: Prothrombin Time 56.4 SEC (11.1-13.3)
== END 2024-07-03 15:11 | disposition home or self-care (01) ==
LOC: HO.LAB 15:10
PROVIDERS: PCP Student in an Organized Health Care Education/Training Program; Visit Provider Internal Medicine
DX: Z51.81 Encounter for therapeutic drug level monitoring (principal); Z79.01 Long term (current) use of anticoagulants
CPT/HCPCS: 36415; 85610; 99212

== ENCOUNTER 2024-07-03 15:10 | Outpatient (AMB) | payer OTHER, SELFPAY ==
--- NOTE | 2024-07-03 15:15 | MHC.OFFVISCO ---
Intake Intake Visit Reasons: Anticoagulation Allergies hydrocodone [From VICODIN] Allergy (Unknown, Verified 07/03/24 15:20) GI UPSET lovenox Adverse Reaction (Intermediate, Uncoded 07/03/24 15:20) Abdominal Pain Medication List - Last Reconciled 07/03/24 by Lindsay Couch RN acetaminophen 325 mg PO QID PRN 7 days acetaminophen ER (Tylenol Arthritis Pain) 1,300 mg PO Q8H PRN albuterol sulfate 90 mcg/actuation (ProAir HFA) 2 puffs inhalation Q4-6H PRN atorvastatin 20 mg PO DAILY blood pressure test kit-large As directed buprenorphine-naloxone 8-2 mg (Suboxone) 1 film sublingual BID fluticasone propionate 50 mcg/actuation sprays intranasal hydroxyzine pamoate 25 mg PO TID inhalational spacing device ([employer] Pascale [facility] spacer) As directed loratadine 10 mg PO DAILY methylprednisolone (Medrol (Mitchell)) 4 mg PO QAM omeprazole 20 mg PO DAILY ondansetron 4 mg PO Q8H PRN 4 days polyethylene glycol 3350 (Miralax) 17 grams PO DAILY warfarin 7.5 mg See Protocol PO 2XW warfarin 10 mg See Protocol PO 5XW Nursing Note INR 5.0- out of therapeutic rangeof 2.5-3.5, pt sent to lab for stat inr- reported as 4.6 by robin Medications and supplements reviewed Patient status: pt missed several acs appt due to wifes health issues. educated pt on importance of acs visit/inr monitoring pt with c.o back pain due to moving mattress yesterday- did not want to go to ed pt states missed a dose of warfarin last tuesday Medications or supplements: no changes, tylenol prn Diet: same Denies any signs and symptoms of bleeding or clotting or unusual bruising Bleeding, bruising, clotting discussed Nutritional guidance given: eat greens to lower inr Dose: hold today then cont 7.5mg daily F/U INR Date : ?tuesday07/06/24 Patient verbalizing understanding of instructions given. pcp/HHC called with elev inr/dosing and f/u appt- spoke to subhash at 1550 Anti-Coag Initial Assessment Social Hx Patient Tobacco Use Status: Former Tobacco user Tobacco use type: Cigarette alcohol intake: never Alcohol intake frequency: does not drink Coding Level of Care Code Est Patient Level 2 Diagnoses Current use of anticoagulant therapy Z79.01 Results AMB INR Fingerstick AMB INR Fingerstick 4.6 Last Edit by Lindsay Couch RN on 07/03/24 15:44 Assessment & Plan Assessment & Plan (1) Current use of anticoagulant therapy: Code(s): Z79.01 - intermediate (current) use of anticoagulants Orders: Orders Prothrombin Time INR Today Z79.01 - intermediate (current) use of anticoagulants
[2024-07-03 15:16] LABS: Prothrombin Time Whole Bld POC 59.9 sec (11.1-13.5)
== END 2024-07-03 15:52 | disposition home or self-care (01) ==
LOC: HO.ACS 15:10
PROVIDERS: PCP Student in an Organized Health Care Education/Training Program; Visit Provider Internal Medicine
DX: Z79.01 Long term (current) use of anticoagulants (principal)

== ENCOUNTER 2024-07-06 09:17 | Outpatient (AMB) | payer OTHER, SELFPAY ==
[2024-07-06 09:34] LABS: Prothrombin Time Whole Bld POC 31.5 sec (11.1-13.5); ~PT, ~INR - Anti Coag Clinic 2.6 (0.9-1.1)
--- NOTE | 2024-07-06 09:42 | MHC.OFFVISCO ---
Intake Intake Visit Reasons: Anticoagulation Allergies hydrocodone [From VICODIN] Allergy (Unknown, Verified 07/06/24 09:26) GI UPSET lovenox Adverse Reaction (Intermediate, Uncoded 07/06/24 09:26) Abdominal Pain Medication List - Last Reconciled 07/06/24 by Grace Mccloud RN acetaminophen 325 mg PO QID PRN 7 days acetaminophen ER (Tylenol Arthritis Pain) 1,300 mg PO Q8H PRN albuterol sulfate 90 mcg/actuation (ProAir HFA) 2 puffs inhalation Q4-6H PRN atorvastatin 20 mg PO DAILY blood pressure test kit-large As directed buprenorphine-naloxone 8-2 mg (Suboxone) 1 film sublingual BID fluticasone propionate 50 mcg/actuation sprays intranasal hydroxyzine pamoate 25 mg PO TID inhalational spacing device ([employer] Pascale [facility] spacer) As directed loratadine 10 mg PO DAILY omeprazole 20 mg PO DAILY ondansetron 4 mg PO Q8H PRN 4 days polyethylene glycol 3350 (Miralax) 17 grams PO DAILY warfarin 7.5 mg See Protocol PO 2XW warfarin 10 mg See Protocol PO 5XW Nursing Note INR: 2.6 in therapeutic range Medications and supplements reviewed states feeling better headaches almost gone - has concerns about his 's health Denies any signs and symptoms of bleeding or bruising or clotting. Bleeding, bruising, clotting discussed Nutritional guidance given - 2 cooked greens / week just not today and tomorrow Dose: keep same for now 7.5mg daily F/U INR: 10 days Patient verbalizes understanding of instructions given Anti-Coag Initial Assessment Social Hx Patient Tobacco Use Status: Former Tobacco user Tobacco use type: Cigarette alcohol intake: never Alcohol intake frequency: does not drink Coding Level of Care Code Est Patient Level 1 Diagnoses Current use of anticoagulant therapy Z79.01 Results AMB INR Fingerstick AMB INR Fingerstick 2.6 Last Edit by Grace Mccloud RN on 07/06/24 09:37 MANUAL ENTRY Assessment & Plan Assessment & Plan (1) Current use of anticoagulant therapy: Code(s): Z79.01 - 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
== END 2024-07-06 09:46 | disposition home or self-care (01) ==
LOC: HO.ACS 09:17
PROVIDERS: PCP Student in an Organized Health Care Education/Training Program; Visit Provider Internal Medicine
DX: Z79.01 Long term (current) use of anticoagulants (principal)

== ENCOUNTER → 2024-07-06 09:17 | Outpatient (BNVA) | payer OTHER, SELFPAY | PROVIDERS: PCP Student in an Organized Health Care Education/Training Program; Visit Provider Internal Medicine | DX: Z95.2 Presence of prosthetic heart valve (principal); Z79.01 Long term (current) use of anticoagulants; Z51.81 Encounter for therapeutic drug level monitoring | CPT/HCPCS: 85610; 99211 ==

== ENCOUNTER 2024-07-20 14:20 | Outpatient (AMB) | payer OTHER, SELFPAY ==
[2024-07-20 14:25] LABS: Prothrombin Time Whole Bld POC 45.5 sec (11.1-13.5); ~PT, ~INR - Anti Coag Clinic 3.8 (0.9-1.1)
--- NOTE | 2024-07-20 14:27 | MHC.OFFVISCO ---
Intake Intake Visit Reasons: Anticoagulation Allergies hydrocodone [From VICODIN] Allergy (Unknown, Verified 07/20/24 14:21) GI UPSET lovenox Adverse Reaction (Intermediate, Uncoded 07/20/24 14:21) Abdominal Pain Medication List - Last Reconciled 07/20/24 by Kayla Alvarez, RN acetaminophen 325 mg PO QID PRN 7 days acetaminophen ER (Tylenol Arthritis Pain) 1,300 mg PO Q8H PRN albuterol sulfate 90 mcg/actuation (ProAir HFA) 2 puffs inhalation Q4-6H PRN atorvastatin 20 mg PO DAILY blood pressure test kit-large As directed buprenorphine-naloxone 8-2 mg (Suboxone) 1 film sublingual BID fluticasone propionate 50 mcg/actuation sprays intranasal hydroxyzine pamoate 25 mg PO TID inhalational spacing device ([employer] Pascale [facility] spacer) As directed loratadine 10 mg PO DAILY omeprazole 20 mg PO DAILY ondansetron 4 mg PO Q8H PRN 4 days polyethylene glycol 3350 (Miralax) 17 grams PO DAILY warfarin 7.5 mg See Protocol PO 2XW warfarin 10 mg See Protocol PO 5XW Nursing Note INR 3.8?out of therapeutic range of 2.5-3.5 Medications and supplements reviewed Patient status: well Medications or supplements: no changes Diet: usual diet for pt Denies any signs and symptoms of bleeding or clotting or unusual bruising Bleeding, bruising, clotting discussed Nutritional guidance given: to have a serving of greens today. Pt states he plans on having spinach tonight. Dose: continue usual dose of 7.5mg X 7 days F/U INR Date : 2 weeks?? Patient verbalizing understanding of instructions given. Anti-Coag Initial Assessment Social Hx Patient Tobacco Use Status: Former Tobacco user Tobacco use type: Cigarette alcohol intake: never Alcohol intake frequency: does not drink Coding Level of Care Code Est Patient Level 1 Diagnoses Current use of anticoagulant therapy Z79.01 Assessment & Plan Assessment & Plan (1) Current use of anticoagulant therapy: Code(s): Z79.01 - nursing home (current) 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
== END 2024-07-20 14:30 | disposition home or self-care (01) ==
LOC: HO.ACS 14:20
PROVIDERS: PCP Student in an Organized Health Care Education/Training Program; Visit Provider Internal Medicine
DX: Z79.01 Long term (current) use of anticoagulants (principal)

== ENCOUNTER → 2024-07-20 14:20 | Outpatient (BNVA) | payer OTHER, SELFPAY | PROVIDERS: PCP Student in an Organized Health Care Education/Training Program; Visit Provider Internal Medicine | DX: Z95.2 Presence of prosthetic heart valve (principal); Z79.01 Long term (current) use of anticoagulants; Z51.81 Encounter for therapeutic drug level monitoring | CPT/HCPCS: 85610; 99211 ==

== ENCOUNTER 2024-08-03 13:03 | Outpatient (AMB) | payer OTHER, SELFPAY ==
--- NOTE | 2024-08-03 13:15 | MHC.OFFVISCO ---
Intake Intake Visit Reasons: Anticoagulation Allergies hydrocodone [From VICODIN] Allergy (Unknown, Verified 08/03/24 13:05) GI UPSET lovenox Adverse Reaction (Intermediate, Uncoded 08/03/24 13:05) Abdominal Pain Medication List - Last Reconciled 08/03/24 by Kayla Alvarez, RN acetaminophen 325 mg PO QID PRN 7 days acetaminophen ER (Tylenol Arthritis Pain) 1,300 mg PO Q8H PRN albuterol sulfate 90 mcg/actuation (ProAir HFA) 2 puffs inhalation Q4-6H PRN atorvastatin 20 mg PO DAILY blood pressure test kit-large As directed buprenorphine-naloxone 8-2 mg (Suboxone) 1 film sublingual BID fluticasone propionate 50 mcg/actuation sprays intranasal hydroxyzine pamoate 25 mg PO TID inhalational spacing device ([employer] Pascale [facility] spacer) As directed loratadine 10 mg PO DAILY omeprazole 20 mg PO DAILY ondansetron 4 mg PO Q8H PRN 4 days polyethylene glycol 3350 (Miralax) 17 grams PO DAILY warfarin 7.5 mg See Protocol PO 2XW warfarin 10 mg See Protocol PO 5XW Nursing Note INR 4.4?out of therapeutic range of 2.5-3.5 Medications and supplements reviewed Patient status: well Medications or supplements: no changes Diet: usual diet Denies any signs and symptoms of bleeding or clotting or unusual bruising Bleeding, bruising, clotting discussed Nutritional guidance given: have a serving of greens today Dose: decrease today's dose to 2.5mg (7.5mg) and then resume usual dose of 7.5mg daily F/U INR Date : 2 weeks?? Patient verbalizing understanding of instructions given. 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
[2024-08-03 13:17] LABS: ~PT, ~INR - Anti Coag Clinic 4.4 (0.9-1.1)
== END 2024-08-03 13:18 | disposition home or self-care (01) ==
LOC: HO.ACS 13:03
PROVIDERS: PCP Student in an Organized Health Care Education/Training Program; Visit Provider Internal Medicine
DX: Z79.01 Long term (current) use of anticoagulants (principal)

== ENCOUNTER → 2024-08-03 13:03 | Outpatient (BNVA) | payer OTHER, SELFPAY | PROVIDERS: PCP Student in an Organized Health Care Education/Training Program; Visit Provider Internal Medicine | DX: Z95.2 Presence of prosthetic heart valve (principal); Z79.01 Long term (current) use of anticoagulants; Z51.81 Encounter for therapeutic drug level monitoring | CPT/HCPCS: 85610; 99211 ==

== ENCOUNTER 2024-08-17 10:13 | Outpatient (REF) | payer OTHER, SELFPAY ==
[2024-08-17 10:57] LABS: INTERNATIONAL NORM RATIO 4.2 (0.9-1.1); Prothrombin Time 49.1 SEC (10.9-12.4)
== END 2024-08-17 10:14 | disposition home or self-care (01) ==
LOC: HO.LAB 10:13
PROVIDERS: PCP Student in an Organized Health Care Education/Training Program; Visit Provider Internal Medicine
DX: Z79.01 Long term (current) use of anticoagulants (principal)
CPT/HCPCS: 36415; 85610

== ENCOUNTER 2024-08-29 09:57 | Outpatient (REF) | payer OTHER, SELFPAY ==
[2024-08-29 11:06] LABS: INTERNATIONAL NORM RATIO 4.9 (0.9-1.1); Prothrombin Time 57.1 SEC (10.9-12.4)
== END 2024-08-29 09:58 | disposition home or self-care (01) ==
LOC: HO.LAB 09:57
PROVIDERS: PCP Student in an Organized Health Care Education/Training Program; Visit Provider Internal Medicine
DX: Z95.2 Presence of prosthetic heart valve (principal); Z51.81 Encounter for therapeutic drug level monitoring; Z79.01 Long term (current) use of anticoagulants
CPT/HCPCS: 36415; 85610; 99212

== ENCOUNTER 2024-08-29 09:57 | Outpatient (AMB) | payer OTHER, SELFPAY ==
[2024-08-29 10:18] LABS: Prothrombin Time Whole Bld POC 62.9 sec (11.1-13.5); ~PT, ~INR - Anti Coag Clinic 5.2 (0.9-1.1)
--- NOTE | 2024-08-29 10:24 | MHC.OFFVISCO ---
Intake Intake Visit Reasons: Anticoagulation Allergies hydrocodone [From VICODIN] Allergy (Unknown, Verified 08/29/24 10:12) GI UPSET lovenox Adverse Reaction (Intermediate, Uncoded 08/29/24 10:12) Abdominal Pain Medication List - Last Reconciled 08/29/24 by Lindsay Cuoch RN acetaminophen 325 mg PO QID PRN 7 days acetaminophen ER (Tylenol Arthritis Pain) 1,300 mg PO Q8H PRN albuterol sulfate 90 mcg/actuation (ProAir HFA) 2 puffs inhalation Q4-6H PRN atorvastatin 20 mg PO DAILY blood pressure test kit-large As directed buprenorphine-naloxone 8-2 mg (Suboxone) 1 film sublingual BID fluticasone propionate 50 mcg/actuation sprays intranasal hydroxyzine pamoate 25 mg PO TID inhalational spacing device ([employer] Pascale [facility] spacer) As directed loratadine 10 mg PO DAILY omeprazole 20 mg PO DAILY ondansetron 4 mg PO Q8H PRN 4 days polyethylene glycol 3350 (Miralax) 17 grams PO DAILY warfarin 7.5 mg See Protocol PO 2XW warfarin 10 mg See Protocol PO 5XW Nursing Note INR 5.2-?? out of therapeutic range of 2.5-3.5, pt sent to lab for stat inr, hematology notified lab inr reported by amandeep at 1115 - 4.9 Medications and supplements reviewed Patient status: pt with c.o stress Medications or supplements: no changes Diet: same Denies any signs and symptoms of bleeding or clotting or unusual bruising Bleeding, bruising, clotting discussed - aware at risk for bleeding, avoid high risk activity Nutritional guidance given: eat greens to lower inr, no reds Dose: hold dose today, reduce dose tomm then lower weekly dosing, 7.5mg x 6, 5mg x 1 F/U INR Date : pt req mon 09/03/24? Patient verbalizing understanding of instructions given. Anti-Coag Initial Assessment Social Hx Patient Tobacco Use Status: Former Tobacco user Tobacco use type: Cigarette alcohol intake: never Alcohol intake frequency: does not drink Coding Level of Care Code Est Patient Level 2 Diagnoses Current use of anticoagulant therapy Z79.01 Assessment & Plan Assessment & Plan (1) Current use of anticoagulant therapy: Code(s): Z79.01 - long term care pharmacist (current) 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 Orders: Orders Prothrombin Time INR Today Z79.01 - long term care pharmacist (current) use of anticoagulants
== END 2024-08-29 11:33 | disposition home or self-care (01) ==
LOC: HO.ACS 09:57
PROVIDERS: PCP Student in an Organized Health Care Education/Training Program; Visit Provider Internal Medicine
DX: Z79.01 Long term (current) use of anticoagulants (principal)

== ENCOUNTER 2024-09-05 13:25 | Outpatient (AMB) | payer OTHER, SELFPAY ==
[2024-09-05 13:39] LABS: Prothrombin Time Whole Bld POC 27.9 sec (11.1-13.5); ~PT, ~INR - Anti Coag Clinic 2.3 (0.9-1.1)
--- NOTE | 2024-09-05 13:47 | MHC.OFFVISCO ---
Intake Intake Visit Reasons: Anticoagulation Allergies hydrocodone [From VICODIN] Allergy (Unknown, Verified 09/05/24 13:32) GI UPSET lovenox Adverse Reaction (Intermediate, Uncoded 08/29/24 10:12) Abdominal Pain Medication List - Last Reconciled 09/05/24 by Trinh Giron RN acetaminophen 325 mg PO QID PRN 7 days acetaminophen ER (Tylenol Arthritis Pain) 1,300 mg PO Q8H PRN albuterol sulfate 90 mcg/actuation (ProAir HFA) 2 puffs inhalation Q4-6H PRN atorvastatin 20 mg PO DAILY blood pressure test kit-large As directed buprenorphine-naloxone 8-2 mg (Suboxone) 1 film sublingual BID fluticasone propionate 50 mcg/actuation sprays intranasal hydroxyzine pamoate 25 mg PO TID inhalational spacing device ([employer] Pascale [facility] spacer) As directed loratadine 10 mg PO DAILY omeprazole 20 mg PO DAILY ondansetron 4 mg PO Q8H PRN 4 days polyethylene glycol 3350 (Miralax) 17 grams PO DAILY warfarin 7.5 mg See Protocol PO 2XW warfarin 10 mg See Protocol PO 5XW Nursing Note PT.BELIEVES THAT HE MAY HAVE MISSED ANOTHER DOSE LAST WEEK IN ERROR. NO CP,SOB,DIET/MED CHANGES,FALLS OR SX OF BLEEDING. BOOST TO 10MGM TODAY THEN RESUME 7.5MGM DAILY AND FOLLOW-UP IN 1 WEEK. NO GREENS TODAY GOOD UNDERSTANDING OF DOSING INSTR. Anti-Coag Initial Assessment Social Hx Patient Tobacco Use Status: Former Tobacco user Tobacco use type: Cigarette alcohol intake: never Alcohol intake frequency: does not drink Coding Level of Care Code Est Patient Level 1 Diagnoses Current use of anticoagulant therapy Z79.01 Assessment & Plan Assessment & Plan (1) Current use of anticoagulant therapy: Code(s): Z79.01 - assisted (current) 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
== END 2024-09-05 13:50 | disposition home or self-care (01) ==
LOC: HO.ACS 13:25
PROVIDERS: PCP Student in an Organized Health Care Education/Training Program; Visit Provider Internal Medicine
DX: Z79.01 Long term (current) use of anticoagulants (principal)

== ENCOUNTER → 2024-09-05 13:25 | Outpatient (BNVA) | payer OTHER, SELFPAY | PROVIDERS: PCP Student in an Organized Health Care Education/Training Program; Visit Provider Internal Medicine | DX: Z95.2 Presence of prosthetic heart valve (principal); Z79.01 Long term (current) use of anticoagulants; Z51.81 Encounter for therapeutic drug level monitoring | CPT/HCPCS: 85610; 99211 ==

== ENCOUNTER 2024-09-13 14:58 | Outpatient (AMB) | payer OTHER, SELFPAY ==
--- NOTE | 2024-09-13 15:13 | MHC.OFFVISCO ---
Intake Intake Visit Reasons: Anticoagulation Allergies hydrocodone [From VICODIN] Allergy (Unknown, Verified 09/13/24 15:01) GI UPSET lovenox Adverse Reaction (Intermediate, Uncoded 09/13/24 15:01) Abdominal Pain Medication List - Last Reconciled 09/13/24 by Grace Mccloud RN acetaminophen 325 mg PO QID PRN 7 days acetaminophen ER (Tylenol Arthritis Pain) 1,300 mg PO Q8H PRN albuterol sulfate 90 mcg/actuation (ProAir HFA) 2 puffs inhalation Q4-6H PRN atorvastatin 20 mg PO DAILY blood pressure test kit-large As directed buprenorphine-naloxone 8-2 mg (Suboxone) 1 film sublingual BID coenzyme Q10 (Co Q-10) PO fluticasone propionate 50 mcg/actuation sprays intranasal hydroxyzine pamoate 25 mg PO TID inhalational spacing device ([employer] Pascale [facility] spacer) As directed loratadine 10 mg PO DAILY melatonin 5 mg PO BEDTIME omeprazole 20 mg PO DAILY ondansetron 4 mg PO Q8H PRN 4 days polyethylene glycol 3350 (Miralax) 17 grams PO DAILY warfarin 7.5 mg See Protocol PO 2XW warfarin 10 mg See Protocol PO 5XW Nursing Note INR 4.2 out of therapeutic range Medications and supplements reviewed Patient status: well, states he is on CO Q 10 WHICH CAN LOWER THE INR AND MELATONIN WHICH CAN RAISE THE INR Medications or supplements: ALL OTHER MEDS ARE THE SAME Diet: MAY NOT HAVE HAD USUAL GREENS Denies any signs and symptoms of bleeding or clotting or unusual bruising Bleeding, bruising, clotting discussed Nutritional guidance given: RESUME WEEKLY GREENS Dose: DECREASE TO 2.5MG TODAY THEN DECREASE WEEKLY DOSE 5MG TUESDAY/ 7.5MG X 6 DAYS F/U INR Date : 1 WEEK ?? Patient verbalizing understanding of instructions given. Anti-Coag Initial Assessment Social Hx Patient Tobacco Use Status: Former Tobacco user Tobacco use type: Cigarette alcohol intake: never Alcohol intake frequency: does not drink Coding Level of Care Code Est Patient Level 1 Diagnoses Current use of anticoagulant therapy Z79.01 Results AMB INR Fingerstick AMB INR Fingerstick 4.2 Last Edit by Grace Mccloud RN on 09/13/24 15:09 MANUAL ENTRY Assessment & Plan Assessment & Plan (1) Current use of anticoagulant therapy: Code(s): Z79.01 - [facility] (current) 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
[2024-09-13 15:31] LABS: Prothrombin Time Whole Bld POC 50.4 sec (11.1-13.5); ~PT, ~INR - Anti Coag Clinic 4.2 (0.9-1.1)
== END 2024-09-13 15:22 | disposition home or self-care (01) ==
LOC: HO.ACS 14:58
PROVIDERS: PCP Student in an Organized Health Care Education/Training Program; Visit Provider Internal Medicine
DX: Z79.01 Long term (current) use of anticoagulants (principal)

== ENCOUNTER → 2024-09-13 14:58 | Outpatient (BNVA) | payer OTHER, SELFPAY | PROVIDERS: PCP Student in an Organized Health Care Education/Training Program; Visit Provider Internal Medicine | DX: Z95.2 Presence of prosthetic heart valve (principal); Z79.01 Long term (current) use of anticoagulants; Z51.81 Encounter for therapeutic drug level monitoring | CPT/HCPCS: 85610; 99211 ==

== ENCOUNTER 2024-09-14 16:30 | Outpatient (REF) | payer OTHER, SELFPAY ==
[2024-09-14 18:20] LABS: Hematocrit 41.8 % (42.0-52.0); Hemoglobin 13.5 g/dl (14.0-18.0); Mean Corpuscular HGB Conc 32.3 g/dl (31.0-36.0); Mean Corpuscular Volume 80.5 fL (80.0-98.0); Mean Platelet Volume 11.3 fL (9.4-12.4); Platelet Count 272 X10*3/uL (160-400); Red Blood Count 5.19 X10*6/uL (4.60-5.80); Red Cell Distribution Width 13.7 % (11.0-16.0)
[2024-09-14 18:36] LABS: Alanine Aminotransferase 36 U/L (0-40); Albumin Level 4.1 g/dL (3.5-5.0); Alkaline Phosphatase 123 U/L (39-117); Anion Gap 12 (12-20); Aspartate Amino Transferase 79 U/L (5-37); Bilirubin Total 0.3 mg/dL (0.0-1.0); Blood Urea Nitrogen 11 mg/dL (9-16); Calcium 9.3 mg/dL (8.4-10.2); Carbon Dioxide 26 mmol/L (22-29); Chloride 107 mmol/L (96-108); Cholesterol 131 mg/dL (<200); Estimated Glomerular Filt Rate > 60; Glucose Random 91 mg/dL (60-115); HDL Cholesterol 31 mg/dL (>40); LDL Cholesterol Calculated 62 mg/dL (<100); Sodium 141 mmol/L (135-145); Total Protein 7.4 g/dL (6.5-8.0); Triglycerides 194 mg/dL (<150)
[2024-09-14 18:53] LABS: TSH reflex Free T4 2.07 uIU/mL (0.32-4.0); Vitamin D 25-OH Total 11.7 ng/mL (>30)
[2024-09-15 03:18] LABS: Estimated Average Glucose 105 mg/dL; Hemoglobin A1C 122.8338 umol/L; Hemoglobin A1c % 5.3 % (<6.0)
[2024-09-15 03:35] LABS: Syphilis Screen Nonreactive (Nonreactive)
[2024-09-15 04:18] LABS: HBS Num1 69.72 mIU/mL (0-7.99); HBc Num1 0.16 S/CO (0.00-0.79); HBsAGNum1 0.35 S/CO (0.00-0.99); HIV AB/AG Nonreactive (Nonreactive); HIV Num 1 0.07 S/CO (0.00-0.99); Hepatitis B Core Antibody Nonreactive (Nonreactive); Hepatitis B Surface Antigen Negative (Negative); ~HepC Num1 0.18 S/CO (0.00-0.79); ~Hepatitis B Surface Antibody REACTIVE (Nonreactive); ~Hepatitis C Antibody Nonreactive (Nonreactive)
[2024-09-15 05:24] LABS: CT PCR NOT DETECTED (Not Detect.); NG PCR NOT DETECTED (Not Detect.)
== END 2024-09-14 16:31 | disposition home or self-care (01) ==
LOC: HO.HHCL 16:30
PROVIDERS: Visit Provider Student in an Organized Health Care Education/Training Program
DX: Z00.00 Encounter for general adult medical examination without abnormal findings (principal); Z11.4 Encounter for screening for human immunodeficiency virus [HIV]; Z13.1 Encounter for screening for diabetes mellitus; Z13.6 Encounter for screening for cardiovascular disorders; Z20.2 Contact with and (suspected) exposure to infections with a predominantly sexual mode of transmission
CPT/HCPCS: 36415; 80053; 80061; 82306; 83036; 84443; 85027; 86704; 86706; 86780; 86803; 87340; 87389; 87491; 87591

== ENCOUNTER 2024-09-20 15:46 | Outpatient (AMB) | payer OTHER, SELFPAY ==
[2024-09-20 15:55] LABS: Prothrombin Time Whole Bld POC 27.6 sec (11.1-13.5); ~PT, ~INR - Anti Coag Clinic 2.3 (0.9-1.1)
--- NOTE | 2024-09-20 16:02 | MHC.OFFVISCO ---
Intake Intake Visit Reasons: Anticoagulation Allergies hydrocodone [From VICODIN] Allergy (Unknown, Verified 09/20/24 15:47) GI UPSET lovenox Adverse Reaction (Intermediate, Uncoded 09/20/24 15:47) Abdominal Pain Medication List - Last Reconciled 09/20/24 by Grace Mccloud RN acetaminophen 325 mg PO QID PRN 7 days acetaminophen ER (Tylenol Arthritis Pain) 1,300 mg PO Q8H PRN albuterol sulfate 90 mcg/actuation (ProAir HFA) 2 puffs inhalation Q4-6H PRN atorvastatin 20 mg PO DAILY blood pressure test kit-large As directed buprenorphine-naloxone 8-2 mg (Suboxone) 1 film sublingual BID coenzyme Q10 (Co Q-10) PO fluticasone propionate 50 mcg/actuation sprays intranasal hydroxyzine pamoate 25 mg PO TID inhalational spacing device ([employer] Pascale [facility] spacer) As directed loratadine 10 mg PO DAILY melatonin 5 mg PO BEDTIME omeprazole 20 mg PO DAILY ondansetron 4 mg PO Q8H PRN 4 days polyethylene glycol 3350 (Miralax) 17 grams PO DAILY sodium chloride 0.65% (Deep Sea Nasal) sprays intranasal warfarin 7.5 mg See Protocol PO 2XW warfarin 10 mg See Protocol PO 5XW Nursing Note INR: 2.3 NOT in therapeutic range 2.5-3.5 - previous INR was 4.2 Medications and supplements reviewed He missed one dose last week Denies any signs and symptoms of bleeding or bruising or clotting. Bleeding, bruising, clotting discussed Nutritional guidance given - avoid greens x 3 days, eat orange and reds to help raise the INR today or tomorrow Dose: keep same dose for now 5mg sundays/ 7.5mg x 6 days F/U INR: 1 week Warfarin education review paper given along with warfarin diet food lists 1 photo and 1 list Patient verbalizes understanding of instructions given Anti-Coag Initial Assessment Social Hx Patient Tobacco Use Status: Former Tobacco user Tobacco use type: Cigarette alcohol intake: never Alcohol intake frequency: does not drink Anti-Coag. Education Record Education Intervention/Brief Description of Teaching 9. Demonstrates understanding of notifying all providers of pending dental 10. Able to state Home Care instructions Additional comments: FOOD PHOTO LIST AND FOOD LIST GIVEN WITH REVIEW AND WARFARIN MANAGEMENT REVIEW DOCUMENTS GIVEN WITH GOOD VERBAL UNDERSTANDING Coding Level of Care Code Est Patient Level 1 Diagnoses Current use of anticoagulant therapy Z79.01 Results AMB INR Fingerstick AMB INR Fingerstick 2.3 Last Edit by Grace Mccloud RN on 09/20/24 15:55 MANUAL ENTRY Assessment & Plan Assessment & Plan (1) Current use of anticoagulant therapy: Code(s): Z79.01 - group home (current) 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
== END 2024-09-20 16:07 | disposition home or self-care (01) ==
LOC: HO.ACS 15:46
PROVIDERS: PCP Student in an Organized Health Care Education/Training Program; Visit Provider Internal Medicine
DX: Z79.01 Long term (current) use of anticoagulants (principal)

== ENCOUNTER → 2024-09-20 15:46 | Outpatient (BNVA) | payer OTHER, SELFPAY | PROVIDERS: PCP Student in an Organized Health Care Education/Training Program; Visit Provider Internal Medicine | DX: Z95.2 Presence of prosthetic heart valve (principal); Z79.01 Long term (current) use of anticoagulants; Z51.81 Encounter for therapeutic drug level monitoring | CPT/HCPCS: 85610; 99211 ==

== ENCOUNTER 2024-10-02 13:26 | Outpatient (AMB) | payer OTHER, SELFPAY ==
[2024-10-02 13:37] LABS: Prothrombin Time Whole Bld POC 27.1 sec (11.1-13.5); ~PT, ~INR - Anti Coag Clinic 2.3 (0.9-1.1)
--- NOTE | 2024-10-02 13:41 | MHC.OFFVISCO ---
Intake Intake Visit Reasons: Anticoagulation Allergies hydrocodone [From VICODIN] Allergy (Unknown, Verified 10/02/24 13:33) GI UPSET lovenox Adverse Reaction (Intermediate, Uncoded 10/02/24 13:33) Abdominal Pain Medication List - Last Reconciled 10/02/24 by Kayla Alvarez, RN acetaminophen 325 mg PO QID PRN 7 days acetaminophen ER (Tylenol Arthritis Pain) 1,300 mg PO Q8H PRN albuterol sulfate 90 mcg/actuation (ProAir HFA) 2 puffs inhalation Q4-6H PRN atorvastatin 20 mg PO DAILY blood pressure test kit-large As directed buprenorphine-naloxone 8-2 mg (Suboxone) 1 film sublingual BID coenzyme Q10 (Co Q-10) PO fluticasone propionate 50 mcg/actuation sprays intranasal hydroxyzine pamoate 25 mg PO TID inhalational spacing device ([employer] Pascale [facility] spacer) As directed loratadine 10 mg PO DAILY melatonin 5 mg PO BEDTIME omeprazole 20 mg PO DAILY ondansetron 4 mg PO Q8H PRN 4 days polyethylene glycol 3350 (Miralax) 17 grams PO DAILY sodium chloride 0.65% (Deep Sea Nasal) sprays intranasal warfarin 7.5 mg See Protocol PO 2XW warfarin 10 mg See Protocol PO 5XW Nursing Note INR 2.3?out of therapeutic range of 2-3 Pt states he missed one dose last week (Tue09/28/24) Medications and supplements reviewed Patient status: well Medications or supplements: no changes Diet: usual diet for pt Denies any signs and symptoms of bleeding or clotting or unusual bruising Bleeding, bruising, clotting discussed Nutritional guidance given: to avoid greens today Dose: increase today's dose to 10mg then resume usual dose of 7.5mg X 6 days and 5mg X 1 day F/U INR Date : 2 weeks?? Patient verbalizing understanding of instructions given. Anti-Coag Initial Assessment Social Hx Patient Tobacco Use Status: Former Tobacco user Tobacco use type: Cigarette alcohol intake: never Alcohol intake frequency: does not drink Coding Level of Care Code Est Patient Level 1 Diagnoses Current use of anticoagulant therapy Z79.01 Assessment & Plan Assessment & Plan (1) Current use of anticoagulant therapy: Code(s): Z79.01 - [facility] (current) 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
== END 2024-10-02 13:44 | disposition home or self-care (01) ==
LOC: HO.ACS 13:26
PROVIDERS: PCP Student in an Organized Health Care Education/Training Program; Visit Provider Internal Medicine
DX: Z79.01 Long term (current) use of anticoagulants (principal)

== ENCOUNTER → 2024-10-02 13:26 | Outpatient (BNVA) | payer OTHER, SELFPAY | PROVIDERS: PCP Student in an Organized Health Care Education/Training Program; Visit Provider Internal Medicine | DX: Z95.2 Presence of prosthetic heart valve (principal); Z79.01 Long term (current) use of anticoagulants; Z51.81 Encounter for therapeutic drug level monitoring | CPT/HCPCS: 85610; 99211 ==

== ENCOUNTER 2024-10-12 10:18 | Emergency (ER) | payer OTHER, SELFPAY ==
[2024-10-12] VITALS (9 sets, daily range): BP systolic 108–138; BP diastolic 52–90; PULSE 61–95; RESP 16–18; TEMP 36.5–36.8; O2SAT 94–99
--- NOTE | ~2024-10-12 | CT_ITS ---
EXAMINATION: CT HEAD WITHOUT CONTRAST CLINICAL INFORMATION: Severe right-sided headache. Recent ICH. COMPARISON: 12/01/2023, 08/18/2022. TECHNIQUE: Contiguous axial imaging was performed from the skull base to vertex without intravenous administration of contrast. This CT examination was performed using dose optimization techniques as appropriate, variously including the following: *Automated exposure control *Adjustment of mA and/or kV according to patient size (this includes techniques or standardized protocols for targeted exams where dose is matched to indication/reason for exam; i.e. extremities or head) *Use of iterative reconstruction technique DLP: mGy-cm FINDINGS: There has been development/increase in the size of a thin right-sided frontoparietal temporal subdural hematoma measuring up to 5 mm in thickness currently (previously only seen along the tentorium and right middle cranial fossa). There is a focus of hyperintense probable acute blood products on coronal series 7, image 91. Blood products extend along the anterior falx as well, measuring up to 3 mm in thickness. There is mild mass effect upon the right hemisphere, with approximately 3 mm right to left midline shift, and mild mass effect upon the right lateral ventricle. No ventricular trapping or hydrocephalus. There is no additional extra-axial fluid collection. There is no gross edema present in the brain parenchyma. Mild diffuse sulcal effacement is noted throughout the right hemisphere. No impending herniation or uncal perching. There are no white matter abnormalities. Basal cisterns are patent. Posterior fossa structures appear normal. No CT evidence of acute territorial infarct. No hyperdense MCA sign. Sella and midline structures otherwise appear normal. No significant white matter abnormality is detected. Globes, orbits, paranasal sinuses, extracranial soft tissues, mastoids, and tympanic cavities appear normal. There is no bony abnormality identified. CT/CT head/brain wo IV con IMPRESSION: 1. Enlarging right subdural hematoma, now encompassing the entire right hemisphere and anterior falx. There is mild mass effect and sulcal effacement, with approximately 3 mm of [id number] midline shift. Close interval follow-up recommended with CT. 2. No acute territorial infarct or gross parenchymal edema. No intra-axial hemorrhage. 3. No white matter abnormalities. Findings communicated to Emergency Department, Nahomy LOPEZ via phone call 11:51 AM, 10/12/2024 Electronically signed by: Jayson Avendano MD 10/12/2024 11:57 AM [facility]
--- NOTE | 2024-10-12 10:36 | PC.NURSE ---
Vivienne Maria NP aware of pt.'s description of his migraine. States that it feels sort of similar to when he had a bleed. [employer] states that she is ordering STAT head CT
--- NOTE | 2024-10-12 10:43 | ED.GENADULT ---
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 He reports that he was brushing his hair then shook his head to finish, and instantly felt a right sided headache. Rates 8/10 at onset, is 5/10 at this time. Woke at 3am and took Tylenol for the pain. Denies any new weakness, numbness, tingling to extremities. Denies blurred vision, double vision or other visual changes. Denies dizziness or lightheadedness. Reports nausea but denies vomiting. Denies fall or other trauma. MD complaint: headache Onset (ago): day(s) Location: head Radiation: non-radiation Severity scale (1-10): 5 Quality: aching Treatments prior to arrival: other Related Data Home Medications ?Medication ?Instructions ?Recorded ?Confirmed acetaminophen 650 mg 1,300 mg PO Q8H PRN Pain 09/24/22 10/02/24 tablet,extended release (Tylenol Arthritis Pain) albuterol sulfate 90 mcg/actuation 2 puff inhalation Q4-6H PRN 09/24/22 10/02/24 aerosol inhaler (ProAir HFA) Wheezing buprenorphine 8 mg-naloxone 2 mg 1 film sublingual BID 09/24/22 10/02/24 sublingual film (Suboxone) loratadine 10 mg tablet 10 mg PO DAILY 09/24/22 10/02/24 inhalational spacing device #1 ea 09/29/22 10/02/24 (Raghav Ashraf [facility] spacer) polyethylene glycol 3350 17 17 g PO DAILY 04/08/23 10/02/24 gram/dose oral powder (Miralax) warfarin 5 mg tablet 10 mg PO 5XW 04/21/23 10/02/24 warfarin 7.5 mg tablet 7.5 mg PO 2XW 04/21/23 10/02/24 atorvastatin 20 mg tablet 20 mg PO DAILY 06/08/23 10/02/24 hydroxyzine pamoate 25 mg capsule 25 mg PO TID 10/21/23 10/02/24 blood pressure test kit-large #1 ea 12/16/23 10/02/24 fluticasone propionate 50 spray intranasal 02/02/24 10/02/24 mcg/actuation nasal spray,suspension coenzyme Q10 [Co Q-10] PO 09/13/24 10/02/24 melatonin 5 mg tablet 5 mg PO BEDTIME 09/13/24 10/02/24 sodium chloride 0.65 % nasal spray spray intranasal 09/20/24 10/02/24 aerosol (Deep Sea Nasal) Previous Rx's ?Medication ?Instructions ?Recorded acetaminophen 325 mg capsule 325 mg PO QID PRN pain 7 days #28 08/15/23 caps ondansetron 4 mg disintegrating 4 mg PO Q8H PRN nausea and 12/25/23 tablet vomiting 4 days #7 tabs omeprazole 20 mg capsule,delayed 20 mg PO DAILY #30 caps 02/02/24 release Allergies Allergy/AdvReac Type Severity Reaction Status Date / Time hydrocodone [From VICODIN] Allergy Unknown GI UPSET Verified 10/12/24 10:29 lovenox AdvReac Intermediate Abdominal Uncoded 10/12/24 10:29 Pain Review of Systems Review of Systems: As per HPI. Yes all other systems are reviewed and are negative Constitutional: Constitutional: Reports as per HPI [facility] Past Medical History Medical History (Updated 10/12/24 @ 12:34 by Kindra Jaramillo NP) Current use of anticoagulant therapy Anticoagulant causing adverse effect in therapeutic use CVA (cerebrovascular accident due to intracerebral hemorrhage) Endocarditis of prosthetic mitral valve SIRS (systemic inflammatory response syndrome) Myalgia Opioid use disorder Fracture of proximal end of humerus Asthma Surgical History History of heart valve replacement with mechanical valve Heart valve replaced Presence of other heart-valve replacement Family History Family History Father Diabetes Mother H/O thyroid disease Social History Social History Household Members: Family Household Members Other:: 3 kids Housing: Apartment Do you presently have visiting nurse or other home services: No Alcohol intake: never Patient Tobacco Use Status: Former Tobacco user Tobacco use type: Cigarette Smoked in Last 30 Days: No Use of substances other than those prescribed or required for medical reasons: No Substance Use Type: Former Substance User and Other Advance Directives: No Advance Directives Information Provided: Yes Do you have a plan to hurt others: No Plan service: No Current occupational status: unemployed and disabled 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 Blood pressure normal. Heart rate normal. Respiratory rate normal. Temperature normal. Oxygen saturation normal. Const General: cooperative, healthy appearing and no acute distress Orientation/consciousness: oriented to person, oriented to place, oriented to time and patient oriented x3 Limitations: no limitations HENNE Head: Yes normocephalic and Yes atraumatic Ears: external ears normal General nose exam: Normal external nose present Face and sinus: Yes face symmetric Mouth: oropharynx normal and moist mucous membranes Throat: Yes uvula midline Eyes Pupils: Equal, round and reactive pupils present Neck Neck: Yes normal visual inspection, Yes no meningeal signs and Yes supple Resp Effort & Inspection: normal respiratory effort and able to speak in complete sentences Auscultation: clear to auscultation bilaterally Cardio Rate: regular rate Rhythm: regular rhythm Heart sounds: S1 normal heart sound present and S2 normal heart sound present GI Palpation (GI): Soft to palpation and nontender Auscultation: normoactive bowel sounds General: Yes no CVA tenderness Back/Spine/Pelvis Back: no CVA tenderness Skin General skin exam: elasticity normal and turgor normal Neuro General: oriented to person, oriented to place, oriented to time, patient oriented x3, tone normal, moves all extremities, Normal light touch and pain sensation, no meningeal signs, no focal motor deficits, CN's II-XI intact bilaterally and deep tendon reflexes 2+ bilaterally Cranial nerves: Yes Equal, round and reactive pupils present Cognition (Neuro): normal cognition Motor exam (neuro): Abnormal motor strength present (4/5 with all ROM) right upper extremity Extrem General: Yes full ROM, Yes no pedal edema and Yes no calf tenderness Psych Mental Status: mental status grossly normal Affect: normal affect Thought process: Normal thought process present NIH Stroke Scale Internal: Initial- Upon Arrival Time: 10:58 Level of Consciousness: Alert Level of Consciousness Questions: Answers both questions correctly Level of Consciousness Commands: Performs both tasks correctly Best Gaze: Normal Visual: No visual loss Facial Palsy: Normal Motor Arm (Right): Some effort against gravity (baseline) Motor Arm (Left): No drift Motor Leg (Right): No drift Motor Leg (Left): No drift Limb Ataxia: Absent Sensory: Normal Best Language: No aphasia Dysarthia: Normal Extinction and Inattention: No abnormality Score: 2 Course Reevaluation(s) Reevaluation #1: Received call from Dr. Avendano, radiologist, that patient has an increased subdural hematoma worse than most recent CT concerning for acute bleed. Call out to [facility]. Time: 11:55 Reevaluation #2: Per smooth Castillo PA at [facility], patient to be transferred to [facility] on medicine service. She does not recommend any reversal of warfarin at this time. Time: 12:53 Reevaluation #3: Spoke with Renee hospitalist, who accepts admission to [facility]. Patient placement will call back when bed available. Time: 15:51 Additional Reevaluation(s): Patient signed out to DENIS Che pending bed placement at [facility]. No new neuro changes. 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 On exam patient is awake, A+Ox3, VS WNL, afebrile, normal neurological exam without focal deficits, physical exam findings as above. Given reported symptoms and physical exam findings, initial differential includes ICH, subdural hematoma, tension headache, migraine. Labs notable for therapeutic INR of 2.3, slight anemia. Received call from radiologist, Dr. Avendano, noting larger subdural hematoma with shfit as compared to most recent CT head concerning for acute bleed. Call placed to [facility] neurosurgery. See course for remaining clinical decision making. Differential Diagnosis Differential Diagnoses: The differential diagnosis associated with the presentation includes As per [facility] Admission/Observation Consideration of admission/observation: Escalation of care including admission/observation considered Consult Healthcare Provider Management of the patient was discussed with: Soil Conservation Technician (DENIS Castillo neurosurgery at [facility]) Lab Data [facility] Lab Attestation statement: I reviewed the patient's lab results. As per [facility] 10/12/24 11:37 10/12/24 11:52 Labs: Lab Results 10/12/24 10/12/24 Range/Units 11:37 11:52 WBC 5.2 (4.8-10.8) X10*3/uL RBC 5.16 (4.60-5.80) X10*6/uL Hgb 13.4 L (14.0-18.0) g/dl Hct 41.8 L (42.0-52.0) % MCV 81.0 (80.0-98.0) fL MCH 26.0 L (27.0-33.0) pg MCHC 32.1 (31.0-36.0) g/dl RDW 13.4 (11.0-16.0) % Plt Count 237 (160-400) X10*3/uL MPV 11.0 (9.4-12.4) fL Immature Gran % (Auto) 0.2 (0.0-0.4) % Neut % (Auto) 59.1 (45-73) % Lymph % (Auto) 29.3 (20-40) % Johnson % (Auto) 10.2 (2-11) % Eos % (Auto) 0.8 (0-4) % Baso % (Auto) 0.4 (0-2) % Lymph # (Auto) 1.5 (1.2-4.9) X10*3/uL Johnson # (Auto) 0.5 (0.1-1.2) X10*3/uL Eos # (Auto) 0.0 (0.0-0.4) X10*3/uL Baso # (Auto) 0.0 (0.0-0.2) X10*3/uL Abs Immat Gran (auto) 0.01 (0.00-0.03) X10*3/uL Absolute Neuts (auto) 3.1 (2.0-8.3) x10*3/uL Absolute Nucleated RBC 0.000 (0.0-0.012) X10*3/uL Nucleated RBC % (auto) 0.0 (0.0-0.2) /100WBC PT 28.3 H D (10.9-12.4) SEC INR 2.4 H D (0.9-1.1) APTT 46.9 H (26.0-36.8) SEC Sodium 140 (135-145) mmol/L Potassium 4.1 (3.3-5.1) mmol/L Chloride 106 (96-108) mmol/L Carbon Dioxide 29 (22-29) mmol/L Anion Gap 9 L (12-20) BUN 13 (9-16) mg/dL Creatinine 0.90 (0.5-1.4) mg/dL Estim Creat Clear Calc 146.8 Estimated GFR > 60 Random Glucose 91 (60-115) mg/dL Calcium 9.4 (8.4-10.2) mg/dL Magnesium 2.1 (1.6-2.6) mg/dL Total Bilirubin 0.3 (0.0-1.0) mg/dL AST 62 H (5-37) U/L ALT 99 H (0-40) U/L Alkaline Phosphatase 136 H (39-117) U/L Total Protein 8.0 (6.5-8.0) g/dL Albumin 4.3 (3.5-5.0) g/dL Independent Interpretation I performed an independent interpretation of an: CT Scan Interpretation: CT head notable for enlarging right subdural hematona with mild mass effect and midline shift. Radiology Impression Discussion of test interpretation with radiology: I have reviewed the radiologist's reading. Radiologist Impression: CT/CT head/brain wo IV con IMPRESSION: 1. Enlarging right subdural hematoma, now encompassing the entire right hemisphere and anterior falx. There is mild mass effect and sulcal effacement, with approximately 3 mm of [id number] midline shift. Close interval follow-up recommended with CT. 2. No acute territorial infarct or gross parenchymal edema. No intra-axial hemorrhage. 3. No white matter abnormalities. External Record Review External record reviewed: Inpatient record, Office record and Outpatient record Critical Care Time Critical Care Time Critical Care Time: Yes Total Critical Care Time: 40 Attestation: I have personally provided critical care time exclusive of time spent on separately billable procedures. Time includes review of lab data, radiology results, discussion with consultants, and monitoring for potential decompensation. Intervention performed as documented. Discharge Plan Discharge Clinical Impression: Subdural hematoma Patient Disposition: [facility] Transfer Details: to [facility] Prescriptions: No Action warfarin 5 mg tablet 10 mg PO 5XW Protocol: Dose Management Condition: Tuesday (Week One) Dose/Route: 5 mg Instruction: 1 x 5 mg tablet Condition: Tuesday Dose/Route: 7.5 mg Instruction: 1 x 7.5 mg tablet Condition: Tuesday Dose/Route: 10 mg Instruction: 2 x 5 mg tablets Condition: Tuesday Dose/Route: 7.5 mg Instruction: 1 x 7.5 mg tablet Condition: Dose/Route: 7.5 mg Instruction: 1 x 7.5 mg tablet Condition: Tuesday Dose/Route: 7.5 mg Instruction: 1 x 7.5 mg tablet Condition: Tuesday Dose/Route: 7.5 mg Instruction: 1 x 7.5 mg tablet Condition: Tuesday (Week Two) Dose/Route: 5 mg Instruction: 1 x 5 mg tablet Condition: Tuesday Dose/Route: 7.5 mg Instruction: 1 x 7.5 mg tablet Condition: Tuesday Dose/Route: 7.5 mg Instruction: 1 x 7.5 mg tablet Condition: Tuesday Dose/Route: 7.5 mg Instruction: 1 x 7.5 mg tablet Condition: Dose/Route: 7.5 mg Instruction: 1 x 7.5 mg tablet Condition: Tuesday Dose/Route: 7.5 mg Instruction: 1 x 7.5 mg tablet Condition: Tuesday Dose/Route: 7.5 mg Instruction: 1 x 7.5 mg tablet Protocol Text: Adjustment Start Date: Tuesday10/02/24 INR Value: 2.3 INR Date: 10/02/24 Recheck Date: 10/16/24 warfarin 7.5 mg tablet 7.5 mg PO 2XW Protocol: Dose Management Condition: Tuesday (Week One) Dose/Route: 5 mg Instruction: 1 x 5 mg tablet Condition: Tuesday Dose/Route: 7.5 mg Instruction: 1 x 7.5 mg tablet Condition: Tuesday Dose/Route: 10 mg Instruction: 2 x 5 mg tablets Condition: Tuesday Dose/Route: 7.5 mg Instruction: 1 x 7.5 mg tablet Condition: Dose/Route: 7.5 mg Instruction: 1 x 7.5 mg tablet Condition: Tuesday Dose/Route: 7.5 mg Instruction: 1 x 7.5 mg tablet Condition: Tuesday Dose/Route: 7.5 mg Instruction: 1 x 7.5 mg tablet Condition: Tuesday (Week Two) Dose/Route: 5 mg Instruction: 1 x 5 mg tablet Condition: Tuesday Dose/Route: 7.5 mg Instruction: 1 x 7.5 mg tablet Condition: Tuesday Dose/Route: 7.5 mg Instruction: 1 x 7.5 mg tablet Condition: Tuesday Dose/Route: 7.5 mg Instruction: 1 x 7.5 mg tablet Condition: Dose/Route: 7.5 mg Instruction: 1 x 7.5 mg tablet Condition: Tuesday Dose/Route: 7.5 mg Instruction: 1 x 7.5 mg tablet Condition: Tuesday Dose/Route: 7.5 mg Instruction: 1 x 7.5 mg tablet Protocol Text: Adjustment Start Date: Tuesday10/02/24 INR Value: 2.3 INR Date: 10/02/24 Recheck Date: 10/16/24 ondansetron 4 mg tablet,disintegrating 4 mg PO Q8H PRN (Reason: nausea and vomiting) 4 Days Qty: 7 0RF acetaminophen 325 mg capsule 325 mg PO QID PRN (Reason: pain) 7 Days Qty: 28 0RF loratadine 10 mg tablet 10 mg PO DAILY albuterol sulfate [ProAir HFA] 90 mcg/actuation HFA aerosol inhaler 2 puff inhalation Q4-6H PRN (Reason: Wheezing) buprenorphine-naloxone [Suboxone] 8-2 mg film 1 film sublingual BID acetaminophen [Tylenol Arthritis Pain] 650 mg tablet extended release 1,300 mg PO Q8H PRN (Reason: Pain) (DME) Raghav Ashraf [facility] Spacer See Rx Instructions .ROUTE .MEDSUPPLY Qty: 1 Rx Instructions: As directed polyethylene glycol 3350 [Miralax] 17 gram/dose powder 17 g PO DAILY atorvastatin 20 mg tablet 20 mg PO DAILY hydroxyzine pamoate 25 mg capsule 25 mg PO TID Deep Sea Nasal 0.65 % aerosol,spray intranasal (DME) blood pressure test kit-large Kit See Rx Instructions .ROUTE BID Qty: 1 Rx Instructions: As directed fluticasone propionate 50 mcg/actuation spray,suspension intranasal omeprazole 20 mg capsule,delayed release(DR/EC) 20 mg PO DAILY Qty: 30 5RF melatonin 5 mg tablet 5 mg PO BEDTIME coenzyme Q10 [Co Q-10] PO Print Language: Congolese
--- NOTE | 2024-10-12 10:49 | PC.NURSE ---
20G peripheral IV inserted to pt.'s RAC. Tolerated well. Good blood return and flushes without difficulty or discomfort.
[2024-10-12 11:42] LABS: MANUAL DIFF FLAG NO
[2024-10-12 11:43] LABS: Basophils Percent Auto 0.4 % (0-2); Eosinophils Percent Auto 0.8 % (0-4); Hematocrit 41.8 % (42.0-52.0); Hemoglobin 13.4 g/dl (14.0-18.0); Imm Gran Abs Auto 0.01 X10*3/uL (0.00-0.03); Imm Gran Pct Auto 0.2 % (0.0-0.4); Lymphocytes Absolute Auto 1.5 X10*3/uL (1.2-4.9); Lymphocytes Percent Auto 29.3 % (20-40); Mean Corpuscular HGB Conc 32.1 g/dl (31.0-36.0); Monocytes Absolute Auto 0.5 X10*3/uL (0.1-1.2); Monocytes Percent Auto 10.2 % (2-11); Neutrophils Absolute Auto 3.1 x10*3/uL (2.0-8.3); Neutrophils Percent Auto 59.1 % (45-73); Platelet Count 237 X10*3/uL (160-400); Red Blood Count 5.16 X10*6/uL (4.60-5.80); Red Cell Distribution Width 13.4 % (11.0-16.0); White Blood Count 5.2 X10*3/uL (4.8-10.8)
[2024-10-12 12:11] LABS: Alanine Aminotransferase 99 U/L (0-40); Albumin Level 4.3 g/dL (3.5-5.0); Alkaline Phosphatase 136 U/L (39-117); Anion Gap 9 (12-20); Aspartate Amino Transferase 62 U/L (5-37); Bilirubin Total 0.3 mg/dL (0.0-1.0); Blood Urea Nitrogen 13 mg/dL (9-16); Calcium 9.4 mg/dL (8.4-10.2); Carbon Dioxide 29 mmol/L (22-29); Chloride 106 mmol/L (96-108); Creatinine Clr Calc Pharmacy 146.8; Estimated Glomerular Filt Rate > 60; Glucose Random 91 mg/dL (60-115); Magnesium 2.1 mg/dL (1.6-2.6); Potassium 4.1 mmol/L (3.3-5.1); Sodium 140 mmol/L (135-145)
[2024-10-12 12:22] LABS: INTERNATIONAL NORM RATIO 2.4 (0.9-1.1); Prothrombin Time 28.3 SEC (10.9-12.4)
[2024-10-12 12:25] LABS: Partial Thromboplastin Time 46.9 SEC (26.0-36.8)
[2024-10-12] MEDS: oxyCODONE HCl Immed Release 5 MG TABLET PO (14:27)
--- NOTE | 2024-10-12 14:42 | MHC.EDTECH ---
THIS CMT CALLS [facility] FOR UPDATE RE:BED ASSIGNMENT. ECHO IN PATIENT PLACEMENT TOLD THIS CMT THAT THEY ARE STILL WORKING ON CLEARING AN [facility] BED AND THEY WILL CALL [facility] WHEN THE BED IS AVAILABLE.
--- NOTE | 2024-10-12 18:06 | PC.NURSE ---
RN-to-RN report [place] JOLENE Treviño [place] [facility] Pt. being transferred to [facility] 5B - Bed 22B
--- OUTSIDE RECORDS SUMMARY | 2024-10-17 07:41 | XMS_ITS | Data Portability ---
Author Organization ID - [facility], Allergy Address [address] [facility] [address] [place] [address] Care Team Providers Care Sales Review Clerk Name Role Phone NAME, KEIRA Primary Care Provider [phone] Assessment Encounter Date Assessment Date Assessment LastModified by Organization Details LastModified Time 04/11/2024 04/11/2024 38-year-old male presents for evaluation of tonsil stones. Exam today demonstrates 2+ cryptic tonsils without exudate. Pathophysiology of tonsil stones was discussed. Recommended consistent use of Flonase nasal spray in addition to loratadine for postnasal drip. Also recommended use of Waterpik and salt water gargles. Recommended switching to nonalcohol-based oral products. He will follow-up in 6 weeks for reevaluation. If tonsil stones persist or worsen, may consider tonsillectomy in the future. [email or web address] Not available 04/11/2024 15:22:38 Plan of Treatment Reminders Order Date Submit Date Provider Last Modified By Organization Details Last Modified Time Details Appointments None recorded. Lab None recorded. Referral None recorded. Procedures None recorded. Surgeries None recorded. Imaging None recorded. Medication Orders Flonase Allergy Relief 50 mcg/actua tion nasal spray,darrin pension 024 [id number], [address], [place], [phone], 15:20:32 Patient TargetsNo targets recorded. Patient InstructionsNo instructions recorded. Reason for Referral None Reported. 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 Procedures Surgical History Date Name Laterality Status Provider Name and Address Organization Details Recorded Time Heart Surgery completed Daphnie Welsh [place] - [facility] 04/11/2024 15:01:33 Imaging Results None recorded. Procedure Notes None recorded. Medical Equipment None Reported. Allergies No known drug allergies Medications Name Sig Start Date Stop Date Status Note LastModified by Organization Details LastModified Time albuterol active Not Available Not Angy ilable Not Available Miralax active Not Available Not Avail able Not Available Flonase Allergy Relief 50 mcg/actuati on nasal spray,suspe nsion [place] 2 sprays in both nostrils once daily x 30 days 024 active Not Available Not Available Not Avai lable Vitals Date Recorded Body height Body mass index (BMI) Body weight Provider Name and Address Organization Details Last Updated DateTime 08/30/2024 190.5 cm 30 kg/m2 885994.17 g Nelli Fishman [place] - [facility] 08/30/2024 10:37:44 Date Recorded Body height Body mass index (BMI) Body weight Provider Name and Address Organization Details Last Updated DateTime 04/11/2024 190.5 cm 30 kg/m2 964094.17 g Daphnie Welsh [place] - [facility] 04/11/2024 14:58:50 Social History None recorded. Functional Status None recorded. Mental Status None recorded. Family History Nothing Reported. Medical History No medical history recorded. Past Encounters Encounter ID Performer Location Encounter Start Date Encounter Closed Date Diagnosis/Indication Diagnosis SNOMED-CT Code Diagnosis ICD10 Code [id number] CHANI KIM PA-C [facility] [address] [place] [address] 04/11/2024 14:35:25 04/11/2024 15:13:40 Amygdalolith 5119124 J35.8 Allergic rhinitis 005804 04 J30.89 [id number] EDDIE MONTES MD [facility] of [facility] - [address] [address] 08/30/2024 10:28:36 08/30/2024 10:58:17 Amygdalolith 2535369 J35.8 Health Concerns Section Related Observation LastModified by Organization Detai ls LastModified Time None Recorded Concern Status LastModified by Organization Details LastModified Time None Recorded Advance Directives Directive None Recorded Payers Encounter Date Sequence Insurance Name Policy Number Policy Roberts Covered Member ID Roberts Member ID Guarantor Name 04/11/2024 1 [facility] - DOS ON OR AFTER 2023 - MEDICARE [place]AGE [place] ([place]PLACEMENT/ADV ANTAGE - PPO) Ludin Mendes [id number] Ludin Mendes Notes Date Note Type Note Provider Name and Address Organization Details Recorded Time 04/11/2024 text/html 38-year-old male presents for evaluation of tonsil stones. He began having postnasal drip and foul taste in his mouth. He then noticed white tonsil stones 6 months ago. Reports the tonsil tissue gets irritated and sometimes bleeds when the tonsil stones come out. He denies history of chronic tonsillitis. Denies tobacco use. He recently started omeprazole for acid reflux with good improvement in symptoms. Takes loratadine for allergic rhinitis. Did a trial of Flonase but ran out of the prescription and did not continue it. CHANI KIM PA-C [address] [place] [address], [phone], [place] - [facility] 04/11/2024 15:25:28 08/30/2024 text/html 38-year-old male presents for evaluation of tonsil stones. Bleeding has resolved. He has not been using flonase but finds mouth rinses helpful. He is less bothered than before. EDDIE MONTES MD [address] [place] [address], [phone], [place] - [facility] 08/30/2024 11:00:13
--- OUTSIDE RECORDS SUMMARY | 2024-10-17 07:42 | XMS_ITS | Continuity of Care Document ---
Author Organization [facility], [facility] Address [address] [place] [address] Care Team Providers Care Cco Name Role Phone NAME, KEIRA Primary Care Provider Assessment No assessment recorded. Plan of Treatment Reminders Order Date Submit Date Provider Last Modified By Organization Details Last Modified Time Details Appointments None record ed. Lab None record ed. Referral None record ed. Procedures None record ed. Surgeries None record ed. Imaging None record ed. Medication Orders None record ed. Patient TargetsNo targets recorded. Patient InstructionsNo instructions recorded. Reason for Referral None Reported. Problems Name Problem SNOMED Code Status Onset Date Resolution Date Notes Provider Name and Address Organization Details Recorded Time Amygdalolith 9842668 Active 2023 CHANI KIM PA-C [address] [place] [address], [phone] [place] [address] [facility] 15:18:54 Allergic rhinitis 10407062 Active 2023 CHANI KIM PA-C [address] [place] [address], [phone] [place] [address] [facility] 15:20:36 Problem Notes None recorded. Procedures Surgical History Date Name Laterality Status Provider Name and Address Organization Details Recorded Time Heart Surgery completed Daphnie Welsh [facility] 04/11/2024 15:01:33 Imaging Results None recorded. Procedure Notes None recorded. Medical Equipment None Reported. Allergies No known drug allergies Medications Name Sig Start Date Stop Date Status Note LastModified by Organization Details LastModified Time albuterol active Not Available Not Angy ilable Not Available Miralax active Not Available Not Avail able Not Available Flonase Allergy Relief 50 mcg/actuati on nasal spray,suspe nsion [place] 2 sprays in both nostrils once daily x 30 days 024 active Not Available Not Available Not Avai lable Vitals Date Recorded Body height Body mass index (BMI) Body weight Provider Name and Address Organization Details Last Updated DateTime 08/30/2024 190.5 cm 30 kg/m2 835874.17 g Nelli Fishman [place] - [facility] 08/30/2024 10:37:44 Social History None recorded. Functional Status None recorded. Mental Status None recorded. Family History Nothing Reported. Medical History No medical history recorded. Past Encounters Encounter ID Performer Location Encounter Start Date Encounter Closed Date Diagnosis/Indication Diagnosis SNOMED-CT Code Diagnosis ICD10 Code [id number] EDDIE MONTES MD [facility]NT[facility] [address] [address] 08/30/2024 10:28:36 08/30/2024 10:58:17 Amygdalolith 5040169 J35.8 Health Concerns Section Related Observation LastModified by Organization Detai ls LastModified Time None Recorded Concern Status LastModified by Organization Details LastModified Time None Recorded Payers None recorded. Notes Date Note Type Note Provider Name and Address Organization Details Recorded Time 08/30/2024 text/html 38-year-old male presents for evaluation of tonsil stones. Bleeding has resolved. He has not been using flonase but finds mouth rinses helpful. He is less bothered than before. EDDIE MONTES MD [address] [place] [address], [phone], [facility] 08/30/2024 11:00:13
== END 2024-10-12 18:57 | disposition short-term general hospital (02) ==
PROVIDERS: Registered Nurse Emergency; Emergency Provider Emergency Medicine Emergency Medical Services; PCP Student in an Organized Health Care Education/Training Program
DX: I62.00 Nontraumatic subdural hemorrhage, unspecified (principal); R29.702 NIHSS score 2; J45.909 Unspecified asthma, uncomplicated; Z95.2 Presence of prosthetic heart valve; Z86.73 Personal history of transient ischemic attack (TIA), and cerebral infarction without residual deficits; Z87.891 Personal history of nicotine dependence; Z79.01 Long term (current) use of anticoagulants; Z79.02 Long term (current) use of antithrombotics/antiplatelets; Z79.899 Other long term (current) drug therapy
CPT/HCPCS: 36415; 70450; 80053; 83735; 85025; 85610; 85730; 99285

== ENCOUNTER → 2024-10-12 10:36 | Outpatient (BNV) | payer OTHER, SELFPAY | PROVIDERS: Emergency Provider Emergency Medicine Emergency Medical Services; PCP Student in an Organized Health Care Education/Training Program; Visit Provider Radiology Diagnostic Radiology | DX: S06.5X0A Traumatic subdural hemorrhage without loss of consciousness, initial encounter (principal) | CPT/HCPCS: 70450 ==

== ENCOUNTER 2024-10-26 11:36 | Outpatient (AMB) | payer OTHER, SELFPAY ==
--- OUTSIDE RECORDS SUMMARY | 2024-10-26 11:39 | XMS_ITS | Continuity of Care Document ---
Author Organization [facility], [facility] Address [address] [place] [address] Care Team Providers Care Federal Air Marshal Name Role Phone NAME, KEIRA Primary Care Provider [phone] Assessment No assessment recorded. Plan of Treatment [...] and Address Organization Details Recorded Time Amygdalolith 5513251 Active 2023 CHANI KIM PA-C [address] [place] [address], [phone] [facility] 15:18:54 Allergic rhinitis 57423971 Active 2023 CHANI KIM PA-C [address] [place] [address], [phone] [place] [address] [facility] 15:20:36 Problem Notes None recorded. Procedures Surgical History Date Name Laterality Status Provider Name and Address Organization Details Recorded Time Heart Surgery completed Daphnie Welsh [facility] 04/11/2024 15:01:33 Imaging Results None recorded. Procedure Notes None recorded. Medical Equipment None Reported. Allergies No known drug allergies Medications Name Sig Start Date Stop Date Status Note LastModified by Organization Details LastModified Time albuterol active Not Available Not Angy ilable Not Available Miralax active Not Available Not Avail able Not Available Flonase Allergy Relief 50 mcg/actuati on nasal spray,suspe nsion [facility] 2 sprays in both nostrils once daily x 30 days 024 active Not Available Not Available Not Avai lable Vitals Date Recorded Body height Body mass index (BMI) Body weight Provider Name and Address Organization Details Last Updated DateTime 08/30/2024 190.5 cm 30 kg/m2 590751.17 g Nelli Fishman [place] - [facility] 08/30/2024 10:37:44 Social History None recorded. Functional Status None recorded. Mental Status None recorded. Family History Nothing Reported. Medical History No medical history recorded. Past Encounters Encounter ID Performer Location Encounter Start Date Encounter Closed Date Diagnosis/Indication Diagnosis SNOMED-CT Code Diagnosis ICD10 Code [id number] EDDIE MONTES MD [facility]NT[facility] [address] [address] 08/30/2024 10:28:36 08/30/2024 10:58:17 Amygdalolith 1137866 J35.8 Health Concerns Section Related Observation LastModified [...] less bothered than before. EDDIE MONTES MD [address] [place] [address], [phone], [facility] 08/30/2024 11:00:13
--- OUTSIDE RECORDS SUMMARY | 2024-10-26 11:39 | XMS_ITS | Data Portability ---
Author Organization [place] - [facility], Allergy Address [address] [facility] [address] [place] [address] Care Team Providers Care Software Licensing Executive Name Role Phone NAME, KEIRA Primary Care Provider [phone] Assessment Encounter Date Assessment Date Assessment LastModified [...] 50 mcg/actua tion nasal spray,darrin pension 024 [id number], [address] [place], [place], [phone], 15:20:32 Patient TargetsNo targets recorded. Patient InstructionsNo instructions recorded. Reason for Referral None Reported. Problems Name Problem SNOMED Code Status Onset Date Resolution Date Notes Provider Name and Address Organization Details Recorded Time Amygdalolith 0015957 Active 2023 CHANI KIM PA-C [address] [address], [place], [address], [place] - [facility] 15:18:54 Allergic rhinitis 53662233 Active 2023 CHANI KIM PA-C [address] [place] [address], [place], [phone], [place] - [facility] 15:20:36 Problem Notes None recorded. Procedures Surgical History Date Name Laterality Status Provider Name and Address Organization Details Recorded Time Heart Surgery completed Daphnie Welsh [place] - [facility] 04/11/2024 15:01:33 Imaging Results None recorded. Procedure Notes None recorded. Medical Equipment None Reported. Allergies No known drug allergies Medications Name Sig Start Date Stop Date Status Note LastModified by Organization Details LastModified Time albuterol active Not Available Not Angy ilable Not Available Miralax active Not Available Not Avail able Not Available Flonase Allergy Relief 50 mcg/actuati on nasal spray,suspe nsion [place] 2 sprays in both nostrils once daily x 30 days 024 active Not Available Not Available Not Avai lable Vitals Date Recorded Body height Body mass index (BMI) Body weight Provider Name and Address Organization Details Last Updated DateTime 08/30/2024 190.5 cm 30 kg/m2 416561.17 g Nelli Fishman [place] - [facility] 08/30/2024 10:37:44 Date Recorded Body height Body mass index (BMI) Body weight Provider Name and Address Organization Details Last Updated DateTime 04/11/2024 190.5 cm 30 kg/m2 403775.17 g Daphnie Welsh [place] - [facility] 04/11/2024 14:58:50 Social History None recorded. Functional Status None recorded. Mental Status None recorded. Family History Nothing Reported. Medical History No medical history recorded. Past Encounters Encounter ID Performer Location Encounter Start Date Encounter Closed Date Diagnosis/Indication Diagnosis SNOMED-CT Code Diagnosis ICD10 Code [id number] CHANI KIM PA-C [facility] [address] [place] [address] 04/11/2024 14:35:25 04/11/2024 15:13:40 Amygdalolith 4869778 J35.8 Allergic rhinitis 298622 04 J30.89 [id number] EDDIE MONTES MD [facility]NT[facility] of [facility] - [address] [address] 08/30/2024 10:28:36 08/30/2024 10:58:17 Amygdalolith 1131029 J35.8 Health Concerns Section Related Observation LastModified by Organization Detai ls LastModified Time None Recorded Concern Status LastModified by Organization Details LastModified Time None Recorded Advance Directives Directive None Recorded Payers Encounter Date Sequence Insurance Name Policy Number Policy Roberts Covered Member ID Roberts Member ID Guarantor Name 04/11/2024 1 [facility] - DOS ON OR AFTER 2023 - MEDICARE [place]AGE [place]/ADV ANTAGE - PPO) Ludin Mendes [id number] Ludin Mendes Notes Date Note Type Note [...] did not continue it. CHANI KIM PA-C [address] [place] [address], [phone], [place] - [facility] 04/11/2024 15:25:28 08/30/2024 text/html 38-year-old male presents for evaluation of tonsil stones. Bleeding has resolved. He has not been using flonase but finds mouth rinses helpful. He is less bothered than before. EDDIE MONTES MD [address] [place] [address], [phone], [place] - [facility] 08/30/2024 11:00:13
[2024-10-26 11:50] LABS: Prothrombin Time Whole Bld POC 46.9 sec (11.1-13.5); ~PT, ~INR - Anti Coag Clinic 3.9 (0.9-1.1)
--- NOTE | 2024-10-26 12:21 | MHC.OFFVISCO ---
Intake Intake Visit Reasons: Anticoagulation Allergies hydrocodone [From VICODIN] Allergy (Unknown, Verified 10/26/24 11:37) GI UPSET lovenox Adverse Reaction (Intermediate, Uncoded 10/26/24 11:37) Abdominal Pain Medication List - Last Reconciled 10/26/24 by Grace Mccloud RN acetaminophen 325 mg PO QID PRN 7 days acetaminophen ER (Tylenol Arthritis Pain) 1,300 mg PO Q8H PRN albuterol sulfate 90 mcg/actuation (ProAir HFA) 2 puffs inhalation Q4-6H PRN atorvastatin 20 mg PO DAILY blood pressure test kit-large As directed buprenorphine-naloxone 8-2 mg (Suboxone) 1 film sublingual BID coenzyme Q10 (Co Q-10) PO fluticasone propionate 50 mcg/actuation sprays intranasal hydroxyzine pamoate 25 mg PO TID inhalational spacing device ([employer] [facility] spacer) As directed loratadine 10 mg PO DAILY melatonin 5 mg PO BEDTIME omeprazole 20 mg PO DAILY ondansetron 4 mg PO Q8H PRN 4 days polyethylene glycol 3350 (Miralax) 17 grams PO DAILY sodium chloride 0.65% (Deep Sea Nasal) sprays intranasal warfarin 7.5 mg See Protocol PO 2XW warfarin 10 mg See Protocol PO 5XW Nursing Note pt is s/p brain bleed 10/12/24 INR 2.6 at [facility] - same frontal lobe bleed - transferred to [facility] and d/c 10/15/24 warfarin was held then resumed 10/15/24 at usual dose 5mg tuesday/ 7.5mg x 6 days- he failed to call [facility] due to being in so much pain- he was mythl prednisalone and an antiseizure med - he is uncertain the name, but completed the medication after 5 days. Headache is still mild and has pain going down his legs, it may be possible he has surgery to prevent any furhter bleeding from that area. INR 3.9 out of therapeutic range Medications and supplements reviewed Patient status: pt enc to call neurology regarding the pain down his legs Medications or supplements: states no changes in his current medications Diet: appetite improved now that CM is lessening Denies any signs and symptoms of bleeding or clotting or unusual bruising Bleeding, bruising, clotting discussed Nutritional guidance given: try to resume weekly greens but to not over compensate Dose: hold today;s dose then decrease weekkly dose possbily 5mg x 2 days/ 7.5mg x 5 days to keep INR 2.5 F/U INR Date : 10/29/24?? Patient verbalizing understanding of instructions given. t/c to spoke with Amanda FERNÁNDEZ to convey msg to PCP - who is out on leave- covering provider will be given pt status and plan of care. 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
== END 2024-10-26 12:31 | disposition home or self-care (01) ==
LOC: HO.ACS 11:36
PROVIDERS: PCP Student in an Organized Health Care Education/Training Program; Visit Provider Internal Medicine
DX: Z79.01 Long term (current) use of anticoagulants (principal)

== ENCOUNTER → 2024-10-26 11:36 | Outpatient (BNVA) | payer OTHER, SELFPAY | PROVIDERS: PCP Student in an Organized Health Care Education/Training Program; Visit Provider Internal Medicine | DX: Z95.2 Presence of prosthetic heart valve (principal); Z79.01 Long term (current) use of anticoagulants; Z51.81 Encounter for therapeutic drug level monitoring | CPT/HCPCS: 85610; 99211 ==

== ENCOUNTER 2024-11-01 11:10 | Outpatient (AMB) | payer OTHER, SELFPAY ==
--- NOTE | 2024-11-01 11:23 | MHC.OFFVISCO ---
Intake Intake Visit Reasons: Anticoagulation Allergies hydrocodone [From VICODIN] Allergy (Unknown, Verified 11/01/24 11:13) GI UPSET lovenox Adverse Reaction (Intermediate, Uncoded 11/01/24 11:13) Abdominal Pain Medication List - Last Reconciled 11/01/24 by Kayla Mena, RN acetaminophen 325 mg PO QID PRN 7 days acetaminophen ER (Tylenol Arthritis Pain) 1,300 mg PO Q8H PRN albuterol sulfate 90 mcg/actuation (ProAir HFA) 2 puffs inhalation Q4-6H PRN atorvastatin 20 mg PO DAILY blood pressure test kit-large As directed buprenorphine-naloxone 8-2 mg (Suboxone) 1 film sublingual BID celecoxib (Celebrex) 200 mg PO DAILY coenzyme Q10 (Co Q-10) PO fluticasone propionate 50 mcg/actuation sprays intranasal hydroxyzine pamoate 25 mg PO TID inhalational spacing device ([employer] [facility] spacer) As directed loratadine 10 mg PO DAILY melatonin 5 mg PO BEDTIME omeprazole 20 mg PO DAILY ondansetron 4 mg PO Q8H PRN 4 days polyethylene glycol 3350 (Miralax) 17 grams PO DAILY sodium chloride 0.65% (Deep Sea Nasal) sprays intranasal warfarin 7.5 mg See Protocol PO 2XW warfarin 10 mg See Protocol PO 5XW Nursing Note Amb to [facility] feeling ok, sts no headache today but has been having headaches S/P brain bleed of 10/12/24 and 3 day stay at [facility] pt sts headaches worse in the morning, pain 6/10- STS HE USES CELEBREX AND TYLENOL, REVIEWED INCREASE RISK OF BLEED WITH CELEBREX USE, STS HE HAS TAKEN A FEW DOSES OVER THE LAST LAST WEEK Medications and supplements reviewed, CELEBREX ADDED TO EMAR NOT AWARE OF ACTUAL DOSING PT STS MISSED DOSE LAST NIGHT- FELL ASLEEP EARLY No other changes in health, diet, medications, or supplements, Denies any signs and symptoms of bleeding, bruising, or clotting. Bleeding, bruising, clotting discussed INR 2.9 in therapeutic range (2.5-3.5) Dose: continue 7.5mg daily including Tuesday (vs 5mg) as missed dose no greens x 2 days (due to missed dose 10/31) decrease use of celebrex due to increased bleeding risk F/U INR: 1 week Patient verbalizes understanding of instructions given Anti-Coag Initial Assessment Social Hx Patient Tobacco Use Status: Former Tobacco user Tobacco use type: Cigarette alcohol intake: never Alcohol intake frequency: does not drink Coding Level of Care Code Est Patient Level 2 Diagnoses Current use of anticoagulant therapy Z79.01 Time Spent (min) 30 Results AMB INR Fingerstick AMB INR Fingerstick 2.9 Last Edit by Kayla Mena RN on 11/01/24 11:31 interface failure Assessment & Plan Assessment & Plan (1) Current use of anticoagulant therapy: Code(s): Z79.01 - senior care (current) 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
[2024-11-01 11:35] LABS: Prothrombin Time Whole Bld POC 34.7 sec (11.1-13.5); ~PT, ~INR - Anti Coag Clinic 2.9 (0.9-1.1)
== END 2024-11-01 11:50 | disposition home or self-care (01) ==
LOC: HO.ACS 11:10
PROVIDERS: PCP Student in an Organized Health Care Education/Training Program; Visit Provider Internal Medicine
DX: Z79.01 Long term (current) use of anticoagulants (principal)

== ENCOUNTER → 2024-11-01 11:10 | Outpatient (BNVA) | payer OTHER, SELFPAY | PROVIDERS: PCP Student in an Organized Health Care Education/Training Program; Visit Provider Internal Medicine | DX: Z95.2 Presence of prosthetic heart valve (principal); Z79.01 Long term (current) use of anticoagulants; Z51.81 Encounter for therapeutic drug level monitoring | CPT/HCPCS: 85610; 99212 ==

== ENCOUNTER 2024-11-09 10:43 | Outpatient (AMB) | payer OTHER, SELFPAY ==
--- NOTE | 2024-11-09 11:02 | MHC.OFFVISCO ---
Intake Intake Visit Reasons: Anticoagulation Allergies hydrocodone [From VICODIN] Allergy (Unknown, Verified 11/09/24 10:46) GI UPSET lovenox Adverse Reaction (Intermediate, Uncoded 11/09/24 10:46) Abdominal Pain Medication List - Last Reconciled 11/09/24 by Grace Mccloud RN acetaminophen 325 mg PO QID PRN 7 days acetaminophen ER (Tylenol Arthritis Pain) 1,300 mg PO Q8H PRN albuterol sulfate 90 mcg/actuation (ProAir HFA) 2 puffs inhalation Q4-6H PRN atorvastatin 20 mg PO DAILY blood pressure test kit-large As directed buprenorphine-naloxone 8-2 mg (Suboxone) 1 film sublingual BID celecoxib (Celebrex) 200 mg PO DAILY PRN coenzyme Q10 (Co Q-10) PO fluticasone propionate 50 mcg/actuation sprays intranasal hydroxyzine pamoate 25 mg PO TID inhalational spacing device (FluGen Pascale VHC spacer) As directed loratadine 10 mg PO DAILY melatonin 5 mg PO BEDTIME omeprazole 20 mg PO DAILY ondansetron 4 mg PO Q8H PRN 4 days polyethylene glycol 3350 (Miralax) 17 grams PO DAILY sodium chloride 0.65% (Deep Sea Nasal) sprays intranasal warfarin 7.5 mg See Protocol PO 2XW warfarin 10 mg See Protocol PO 5XW Nursing Note INR: 3.4 in therapeutic range 2.5-3.5 Medications and supplements reviewed pt states he is feeling much better, however woke up with swollen eye area - not sure if stye or infection- going to call his [facility] md to check his eye- he was instructed to call [facility] with any medication changes. He has CT scan 11/12/2024 and then f/u with Neuro 11/14/24 - pt again enc to call with any medication changes. He was also enc to make sure to use extra precaution in keeping hands and phone clean due to stomach virus and URI to help decrease risk of another brain bleed with either coughing or vomiting Denies any signs and symptoms of bleeding or bruising or clotting. Bleeding, bruising, clotting discussed Nutritional guidance given - keep up weekly greens - review food list Dose: keep dose the same dose for now 7.5mg daily F/U INR: every 7-10 days for now Patient verbalizes understanding of instructions given Anti-Coag Initial Assessment Social Hx Patient Tobacco Use Status: Former Tobacco user Tobacco use type: Cigarette alcohol intake: never Alcohol intake frequency: does not drink Coding Level of Care Code Est Patient Level 1 Diagnoses Current use of anticoagulant therapy Z79.01 Results AMB INR Fingerstick AMB INR Fingerstick 3.4 Last Edit by Grace Mccloud RN on 11/09/24 10:59 MANUAL ENTRY Assessment & Plan Assessment & Plan (1) Current use of anticoagulant therapy: Code(s): Z79.01 - nursing home (current) 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
[2024-11-09 11:50] LABS: Prothrombin Time Whole Bld POC 41.2 sec (11.1-13.5); ~PT, ~INR - Anti Coag Clinic 3.4 (0.9-1.1)
--- OUTSIDE RECORDS SUMMARY | 2024-11-09 12:18 | XMS_ITS | Data Portability ---
Author Organization [place] - [facility], Allergy Address [address] [facility] [address] [place] [address] Care Team Providers Care Cna Name Role Phone NAME, KEIRA Primary Care Provider Assessment Encounter Date Assessment Date Assessment LastModified [...] 50 mcg/actua tion nasal spray,darrin pension 024 [id number], [address] [place], [place], [phone], 15:20:32 Patient TargetsNo targets recorded. Patient InstructionsNo instructions recorded. Reason for Referral None Reported. 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 Procedures Surgical History Date Name Laterality Status Provider Name and Address Organization Details Recorded Time Heart Surgery completed Daphnie Welsh [place] - [facility] 04/11/2024 15:01:33 Imaging Results None recorded. Procedure Notes None recorded. Medical Equipment None Reported. Allergies No known drug allergies Medications Name Sig Start Date Stop Date Status Note LastModified by Organization Details LastModified Time albuterol active Not Available Not Angy ilable Not Available Miralax active Not Available Not Avail able Not Available Flonase Allergy Relief 50 mcg/actuati on nasal spray,suspe nsion [place] 2 sprays in both nostrils once daily x 30 days 024 active Not Available Not Available Not Avai lable Vitals Date Recorded Body height Body mass index (BMI) Body weight Provider Name and Address Organization Details Last Updated DateTime 08/30/2024 190.5 cm 30 kg/m2 216588.17 g Nelli Fishman [place] - [facility] 08/30/2024 10:37:44 Date Recorded Body height Body mass index (BMI) Body weight Provider Name and Address Organization Details Last Updated DateTime 04/11/2024 190.5 cm 30 kg/m2 044894.17 g Daphnie Welsh [place] - [facility] 04/11/2024 14:58:50 Social History None recorded. Functional Status None recorded. Mental Status None recorded. Family History Nothing Reported. Medical History No medical history recorded. Past Encounters Encounter ID Performer Location Encounter Start Date Encounter Closed Date Diagnosis/Indication Diagnosis SNOMED-CT Code Diagnosis ICD10 Code [id number] CHANI KIM PA-C [facility] [address] [place] [address] 04/11/2024 14:35:25 04/11/2024 15:13:40 Amygdalolith 2549974 J35.8 Allergic rhinitis 207755 04 J30.89 [id number] EDDIE MONTES MD [facility] - [address] [address] 08/30/2024 10:28:36 08/30/2024 10:58:17 Amygdalolith 4861150 J35.8 Health Concerns Section Related Observation LastModified by Organization Detai ls LastModified Time None Recorded Concern Status LastModified by Organization Details LastModified Time None Recorded Advance Directives Directive None Recorded Payers Encounter Date Sequence Insurance Name Policy Number Policy Roberts Covered Member ID Roberts Member ID Guarantor Name 04/11/2024 1 [facility] - DOS ON OR AFTER 2023 - MEDICARE ADVANTAGE [place] (MEDICARE REPLACEMENT/ADV ANTAGE - PPO) Ludin Mendes [id number] Ludin Mendes Notes Date Note Type Note [...] did not continue it. CHANI KIM PA-C [address] [place] [address], [phone], [place] - [facility] 04/11/2024 15:25:28 08/30/2024 text/html 38-year-old male presents for evaluation of tonsil stones. Bleeding has resolved. He has not been using flonase but finds mouth rinses helpful. He is less bothered than before. EDDIE MONTES MD [address] [place] [address], [phone], [place] - [facility] 08/30/2024 11:00:13
== END 2024-11-09 11:09 | disposition home or self-care (01) ==
LOC: HO.ACS 10:43
PROVIDERS: PCP Student in an Organized Health Care Education/Training Program; Visit Provider Internal Medicine
DX: Z79.01 Long term (current) use of anticoagulants (principal)

== ENCOUNTER → 2024-11-09 10:43 | Outpatient (BNVA) | payer OTHER, SELFPAY | PROVIDERS: PCP Student in an Organized Health Care Education/Training Program; Visit Provider Internal Medicine | DX: Z95.2 Presence of prosthetic heart valve (principal); Z79.01 Long term (current) use of anticoagulants; Z51.81 Encounter for therapeutic drug level monitoring | CPT/HCPCS: 85610; 99211 ==

== ENCOUNTER 2024-11-19 11:12 | Outpatient (AMB) | payer OTHER, SELFPAY ==
[2024-11-19 11:21] LABS: Prothrombin Time Whole Bld POC 49.6 sec (11.1-13.5); ~PT, ~INR - Anti Coag Clinic 4.1 (0.9-1.1)
--- NOTE | 2024-11-19 11:35 | MHC.OFFVISCO ---
Intake Intake Visit Reasons: Anticoagulation Allergies hydrocodone [From VICODIN] Allergy (Unknown, Verified 11/09/24 10:46) GI UPSET lovenox Adverse Reaction (Intermediate, Uncoded 11/09/24 10:46) Abdominal Pain Nursing Note INR 4.1 out of therapeutic range- Pt states he notices his INRs run higher when he uses the 5mg tab instead of his 7.5 mg tabs Medications and supplements reviewed- denies any changes Patient status: denies any headaches or back aches, he stated he missed a warfarin dose last week, he statd he ran out of his 7.5g tabs and has been using the 5mg tabs and thinks when he breaks the 5, it breaks unevenly and maybe getting more warfarin. No other diet changes, has not eaten anything different to raise the INR He states his puts spinach in many of the meals every week. Medications or supplements: no changes - not taking tylenol or celebrex any more - no headaches Diet: good Denies any signs and symptoms of bleeding or clotting or unusual bruising Bleeding, bruising, clotting discussed Nutritional guidance given: keep eating a mix of fruits and vegetables Dose: hold today' dose then possibly lower his weekly dose 3.75g x 1 day/ 7.5mg x 6 days F/U INR Date : this week due to hx of spontaneous brain bleeds - 11/23/24 ?? Patient verbalizing understanding of instructions given with read back. 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
--- OUTSIDE RECORDS SUMMARY | 2024-11-19 13:07 | XMS_ITS | Continuity of Care Document ---
Author Organization [facility], [facility] Address [address] [place] [address] Care Team Providers Care Conference Assistant Name Role Phone NAME, KEIRA Primary Care Provider [phone] Assessment No assessment recorded. Plan of Treatment [...] and Address Organization Details Recorded Time Amygdalolith 0785956 Active 2023 CHANI KIM PA-C [address] [place] [address], [phone] [place] [address] [facility] 15:18:54 Allergic rhinitis 66467979 Active 2023 CHANI KIM PA-C [address] [place] [address], [phone] [place] [address] [facility] 15:20:36 Problem Notes None recorded. Procedures Surgical History Date Name Laterality Status Provider Name and Address Organization Details Recorded Time Heart Surgery completed Daphnie Welsh [facility] 04/11/2024 15:01:33 Imaging Results None recorded. Procedure Notes None recorded. Medical Equipment None Reported. Allergies No known drug allergies Medications Name Sig Start Date Stop Date Status Note LastModified by Organization Details LastModified Time albuterol active Not Available Not Angy ilable Not Available Miralax active Not Available Not Avail able Not Available Flonase Allergy Relief 50 mcg/actuati on nasal spray,suspe nsion [place] 2 sprays in both nostrils once daily x 30 days 024 active Not Available Not Available Not Avai lable Vitals Date Recorded Body height Body mass index (BMI) Body weight Provider Name and Address Organization Details Last Updated DateTime 08/30/2024 190.5 cm 30 kg/m2 948799.17 g Nelli Fishman [place] - [facility] 08/30/2024 10:37:44 Social History None recorded. Functional Status None recorded. Mental Status None recorded. Family History Nothing Reported. Medical History No medical history recorded. Past Encounters Encounter ID Performer Location Encounter Start Date Encounter Closed Date Diagnosis/Indication Diagnosis SNOMED-CT Code Diagnosis ICD10 Code Diagnosis Note [id number] EDDIE MONTES MD [facility] [address] [address] 08/30/2024 10:28:36 08/30/2024 10:58:17 Amygdalolith 6244305 J35.8 Discourage d surgery. Recommend observatio n. He was agreeable to the plan. I asked him to call if the bleeding recurs. Health Concerns Section Related Observation LastModified by [...] less bothered than before. EDDIE MONTES MD [address] [place] [address], [phone], [place] - [facility] 08/30/2024 11:00:13
--- OUTSIDE RECORDS SUMMARY | 2024-11-19 13:07 | XMS_ITS | Data Portability ---
Author Organization [place] - [facility], Allergy Address [address] [facility] [address] [place] [phone] Care Team Providers Care Rice Milling Supervisor Name Role Phone NAME, KEIRA Primary Care [...] 50 mcg/actua tion nasal spray,darrin pension 024 [id number], [address] [place], [place], [phone], 15:20:32 Patient TargetsNo targets recorded. Patient InstructionsNo instructions recorded. Reason for Referral None Reported. Problems Name Problem SNOMED Code Status Onset Date Resolution Date Notes Provider Name and Address Organization Details Recorded Time Amygdalolith 1543814 Active 2023 CHANI KIM PA-C [address] [place] [address], [place], [phone], [place] - [facility] 15:18:54 Allergic rhinitis 24693836 Active 2023 CHANI KIM PA-C [address] [place] [address], [place], [address], [place] - [facility] 15:20:36 Problem Notes None recorded. Procedures Surgical History Date Name Laterality Status Provider Name and Address Organization Details Recorded Time Heart Surgery completed Daphnie Welsh [place] - [facility] 04/11/2024 15:01:33 Imaging Results None recorded. Procedure Notes None recorded. Medical Equipment None Reported. Allergies No known drug allergies Medications Name Sig Start Date Stop Date Status Note LastModified by Organization Details LastModified Time albuterol active Not Available Not Angy ilable Not Available Miralax active Not Available Not Avail able Not Available Flonase Allergy Relief 50 mcg/actuati on nasal spray,suspe nsion [place] 2 sprays in both nostrils once daily x 30 days 024 active Not Available Not Available Not Avai lable Vitals Date Recorded Body height Body mass index (BMI) Body weight Provider Name and Address Organization Details Last Updated DateTime 08/30/2024 190.5 cm 30 kg/m2 783943.17 g Nelli Fishman [place] - [facility] 08/30/2024 10:37:44 Date Recorded Body height Body mass index (BMI) Body weight Provider Name and Address Organization Details Last Updated DateTime 04/11/2024 190.5 cm 30 kg/m2 198003.17 g Daphnie Welsh [place] - [facility] 04/11/2024 14:58:50 Social History None recorded. Functional Status None recorded. Mental Status None recorded. Family History Nothing Reported. Medical History No medical history recorded. Past Encounters Encounter ID Performer Location Encounter Start Date Encounter Closed Date Diagnosis/Indication Diagnosis SNOMED-CT Code Diagnosis ICD10 Code Diagnosis Note [id number] CHANI KIM PA-C [facility] [address] [place] [address] 04/11/2024 14:35:25 04/11/2024 15:13:40 Amygdalolith 2900122 J35.8 Allergic rhinitis 594120 04 J30.89 [id number] EDDIE MONTES MD [facility] of [facility] [address] [place] [address] 08/30/2024 10:28:36 08/30/2024 10:58:17 Amygdalolith 1922200 J35.8 Discourage d surgery. Recommend observatio n. [...] Roberts Member ID Guarantor Name 04/11/2024 1 [facility] - DOS ON OR AFTER 2023 - MEDICARE ADVANTAGE [place] ([place]ACEMENT/ADV ANTAGE - PPO) Ludin Mendes [id number] Ludin Mendes Notes Date Note Type Note [...] did not continue it. CHANI KIM PA-C [address] [place] [address], [phone], [place] - [facility] 04/11/2024 15:25:28 08/30/2024 text/html 38-year-old male presents for evaluation of tonsil stones. Bleeding has resolved. He has not been using flonase but finds mouth rinses helpful. He is less bothered than before. EDDIE MONTES MD [address] [place] [address],[address], [address], [place] - [facility] 08/30/2024 11:00:13
== END 2024-11-19 11:59 | disposition home or self-care (01) ==
LOC: HO.ACS 11:12
PROVIDERS: PCP Student in an Organized Health Care Education/Training Program; Visit Provider Internal Medicine
DX: Z79.01 Long term (current) use of anticoagulants (principal)

== ENCOUNTER → 2024-11-19 11:12 | Outpatient (BNVA) | payer OTHER, SELFPAY | PROVIDERS: PCP Student in an Organized Health Care Education/Training Program; Visit Provider Internal Medicine | DX: Z95.2 Presence of prosthetic heart valve (principal); Z79.01 Long term (current) use of anticoagulants; Z51.81 Encounter for therapeutic drug level monitoring | CPT/HCPCS: 85610; 99211 ==

== ENCOUNTER 2024-11-23 11:43 | Outpatient (AMB) | payer OTHER, SELFPAY ==
[2024-11-23 11:51] LABS: Prothrombin Time Whole Bld POC 51.2 sec (11.1-13.5); ~PT, ~INR - Anti Coag Clinic 4.3 (0.9-1.1)
--- NOTE | 2024-11-23 11:57 | MHC.OFFVISCO ---
Intake Intake Visit Reasons: Anticoagulation Allergies hydrocodone [From VICODIN] Allergy (Unknown, Verified 11/23/24 11:46) GI UPSET lovenox Adverse Reaction (Intermediate, Uncoded 11/23/24 11:46) Abdominal Pain Medication List - Last Reconciled 11/23/24 by Kayla Alvarez, RN acetaminophen 325 mg PO QID PRN 7 days acetaminophen ER (Tylenol Arthritis Pain) 1,300 mg PO Q8H PRN albuterol sulfate 90 mcg/actuation (ProAir HFA) 2 puffs inhalation Q4-6H PRN atorvastatin 20 mg PO DAILY blood pressure test kit-large As directed buprenorphine-naloxone 8-2 mg (Suboxone) 1 film sublingual BID celecoxib (Celebrex) 200 mg PO DAILY PRN coenzyme Q10 (Co Q-10) PO fluticasone propionate 50 mcg/actuation sprays intranasal hydroxyzine pamoate 25 mg PO TID inhalational spacing device ([employer] Pascale C spacer) As directed loratadine 10 mg PO DAILY melatonin 5 mg PO BEDTIME omeprazole 20 mg PO DAILY ondansetron 4 mg PO Q8H PRN 4 days polyethylene glycol 3350 (Miralax) 17 grams PO DAILY sodium chloride 0.65% (Deep Sea Nasal) sprays intranasal warfarin 7.5 mg See Protocol PO 2XW warfarin 10 mg See Protocol PO 5XW Nursing Note INR: 4.3?out of therapeutic range of 2.5-3.5 Medications and supplements reviewed Patient status: feels well but states he is constipated and will take Miralax today Medications or supplements: no changes Diet: usual diet for pt Denies any signs and symptoms of bleeding or clotting or unusual bruising Bleeding, bruising, clotting discussed Nutritional guidance given: to have a serving of greens today. Pt to have spinach today. Food list reviewed. Dose: hold today's dose of 7.5mg then 7.5mg tomorrow and 3.75mg the next day. F/U INR Date : 11/26/24?? Patient verbalizing understanding of instructions given. 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
--- OUTSIDE RECORDS SUMMARY | 2024-11-23 14:24 | XMS_ITS | Data Portability ---
Author Organization [place] - [facility], Allergy Address [address] [facility] [address] [place] [phone] Care Team Providers Care Safety And Security Manager Name Role Phone NAME, KEIRA Primary Care Provider [phone] Assessment Encounter Date Assessment Date Assessment LastModified [...] 50 mcg/actua tion nasal spray,darrin pension 024 [id number], [address] [place], [place], [phone], 15:20:32 Patient TargetsNo targets recorded. Patient InstructionsNo instructions recorded. Reason for Referral None Reported. Problems Name Problem SNOMED Code Status Onset Date Resolution Date Notes Provider Name and Address Organization Details Recorded Time Amygdalolith 6522611 Active 2023 CHANI KIM PA-C [address] [place] [address], [place], [address], [place] - [facility] 15:18:54 Allergic rhinitis 38964653 Active 2023 CHANI KIM PA-C [address] [place] [address], [place], [address], [place] - [facility] 15:20:36 Problem Notes None recorded. Procedures Surgical History Date Name Laterality Status Provider Name and Address Organization Details Recorded Time Heart Surgery completed Daphnie Welsh [place] - [facility] 04/11/2024 15:01:33 Imaging Results None recorded. Procedure Notes None recorded. Medical Equipment None Reported. Allergies No known drug allergies Medications Name Sig Start Date Stop Date Status Note LastModified by Organization Details LastModified Time albuterol active Not Available Not Angy ilable Not Available Miralax active Not Available Not Avail able Not Available Flonase Allergy Relief 50 mcg/actuati on nasal spray,suspe nsion [place] 2 sprays in both nostrils once daily x 30 days 024 active Not Available Not Available Not Avai lable Vitals Date Recorded Body height Body mass index (BMI) Body weight Provider Name and Address Organization Details Last Updated DateTime 08/30/2024 190.5 cm 30 kg/m2 640066.17 g Nelli Fishman [place] - [facility] 08/30/2024 10:37:44 Date Recorded Body height Body mass index (BMI) Body weight Provider Name and Address Organization Details Last Updated DateTime 04/11/2024 190.5 cm 30 kg/m2 996916.17 g Daphnie Welsh [place] - [facility] 04/11/2024 14:58:50 Social History None recorded. Functional Status None recorded. Mental Status None recorded. Family History Nothing Reported. Medical History No medical history recorded. Past Encounters Encounter ID Performer Location Encounter Start Date Encounter Closed Date Diagnosis/Indication Diagnosis SNOMED-CT Code Diagnosis ICD10 Code Diagnosis Note [id number] CHANI KIM PA-C [facility] [address] [place] [address] 04/11/2024 14:35:25 04/11/2024 15:13:40 Amygdalolith 0365428 J35.8 Allergic rhinitis 527702 04 J30.89 [id number] EDDIE MONTES MD [facility] of [facility] [address] [place] [address] 08/30/2024 10:28:36 08/30/2024 10:58:17 Amygdalolith 3045185 J35.8 Discourage d surgery. Recommend observatio n. [...] Roberts Member ID Guarantor Name 04/11/2024 1 [facility] - DOS ON OR AFTER 2023 - MEDICARE [place]AGE [place] ([place]ARE [place]EMENT/ADV ANTAGE - PPO) Ludin Mendes [id number] Ludin Mendes Notes Date Note Type Note [...] did not continue it. CHANI KIM PA-C [address] [place] [address], [address], [place] - [facility] 04/11/2024 15:25:28 08/30/2024 text/html 38-year-old male presents for evaluation of tonsil stones. Bleeding has resolved. He has not been using flonase but finds mouth rinses helpful. He is less bothered than before. EDDIE MONTES MD [address] [place] [address],[address], [address], [place] - [facility] 08/30/2024 11:00:13
--- OUTSIDE RECORDS SUMMARY | 2024-11-23 14:24 | XMS_ITS | Continuity of Care Document ---
Author Organization [facility], [facility] Address [address] [place] [address] Care Team Providers Care Real Estate Manager Name Role Phone NAME, KEIRA Primary [...] and Address Organization Details Recorded Time Amygdalolith [id number] Active 2023 CHANI KIM PA-C [address] [place] [address], [phone] [place] [address] [facility] 15:18:54 Allergic rhinitis [id number] Active 2023 CHANI KIM PA-C [address] [place] [address], [phone] [place] [address] [facility] 15:20:36 Problem Notes None recorded. Procedures Surgical History Date Name Laterality Status Provider Name and Address Organization Details Recorded Time Heart Surgery completed Daphnie Welsh [facility] 04/11/2024 15:01:33 Imaging Results None recorded. Procedure Notes None recorded. Medical Equipment None Reported. Allergies No known drug allergies Medications Name Sig Start Date Stop Date Status Note LastModified by Organization Details LastModified Time albuterol active Not Available Not Angy ilable Not Available Miralax active Not Available Not Avail able Not Available Flonase Allergy Relief 50 mcg/actuati on nasal spray,suspe nsion [place] 2 sprays in both nostrils once daily x 30 days 024 active Not Available Not Available Not Avai lable Vitals Date Recorded Body height Body mass index (BMI) Body weight Provider Name and Address Organization Details Last Updated DateTime 08/30/2024 190.5 cm 30 kg/m2 892380.17 g Nelli Fishman [place] - [facility] 08/30/2024 10:37:44 Social History None recorded. Functional Status None recorded. Mental Status None recorded. Family History Nothing Reported. Medical History No medical history recorded. Past Encounters Encounter ID Performer Location Encounter Start Date Encounter Closed Date Diagnosis/Indication Diagnosis SNOMED-CT Code Diagnosis ICD10 Code Diagnosis Note [id number] EDDIE MONTES MD [facility] [address] [phone] 08/30/2024 10:28:36 08/30/2024 10:58:17 Amygdalolith 1361742 J35.8 Discourage d surgery. Recommend observatio n. [...] less bothered than before. EDDIE MONTES MD [address] [place] [address], [phone], [place] - [facility] 08/30/2024 11:00:13
== END 2024-11-23 12:00 | disposition home or self-care (01) ==
LOC: HO.ACS 11:43
PROVIDERS: PCP Student in an Organized Health Care Education/Training Program; Visit Provider Internal Medicine
DX: Z79.01 Long term (current) use of anticoagulants (principal)

== ENCOUNTER → 2024-11-23 11:43 | Outpatient (BNVA) | payer OTHER, SELFPAY | PROVIDERS: PCP Student in an Organized Health Care Education/Training Program; Visit Provider Internal Medicine | DX: Z95.2 Presence of prosthetic heart valve (principal); Z79.01 Long term (current) use of anticoagulants; Z51.81 Encounter for therapeutic drug level monitoring | CPT/HCPCS: 85610; 99211 ==

== ENCOUNTER 2024-12-07 15:06 | Outpatient (AMB) | payer OTHER, SELFPAY ==
--- OUTSIDE RECORDS SUMMARY | 2024-12-07 15:08 | XMS_ITS | Encounter Summary ---
Author Organization [facility] Address [address] [facility] [address] [place] [address] Care Team Providers Care Senior Accounting Manager Name Role Phone Mariya Juan MD Primary Care Pro vider Encounter Details Date Type Department Care Team (Late st Contact Info) Description 11/09/2024 Orders Only GENERIC EXTERNAL DATA DEPARTMENT Provider, Generic External Data Social History Tobacco Use Types Packs/Day Years Used Date Smoking Tobacco: Former Cigarettes Q uit: 08/23/2022 Passive Smoke Exposure: Never Smokeless Tobacco: Never Comments:Started smoking tob acco 16 y of age and stopped at his 2021 at his 37 y of age -smoked for 21 years , used to smoke 3-4 cig a day max 7-10 day Alcohol Use Standard Drinks/Week Comments Not Currently 0 (1 standard drink = 0.6 oz pur e alcohol) Depression Answer Date Recorded Patient Health Questionnaire-9 Score 12 07/24/2024 Patient Health Questionnaire-9 Score 12 07/24/2024 Last PHQ-9: Questionnaire Data Not on file 0 07/24/2024 Housing Stability Answer Date Recorded What is your housing situation today? I have nancy infante 07/24/[address] you li ve. Do you have problems with any of the following? None of the above 07/24/2024 Food Insecurity Answer Date Recorded Within the past 12 months, y ou worried that your food would run out before you got money to buy more: Often true 07/24/2024 Within the past 12 months,th e food you bought just didn't last and you didn't have enough money to get more: Often true Transportation Answer Date Recorded In the past 12 months, has l ack of transportation kept you from medical appts, meetings, work or from getting things needed for daily living? Yes, it has kept me from medical appointments or getting medications. 07/24/2024 Utilities Answer Date Recorded In the past 12 months, has t he electric, gas, oil or water company threatened to shut off services in your home? I am not sure 07/24/2024 Depression Answer Date Recorded Patient Health Questionnaire-2 Score 2 07/24/2024 Internet Access Answer Date Recorded Internet Access Q1 Yes 07/24/2024 Internet Access Q2 Not on file 07/24/2024 Sex and Gender Information Value Date Recorded Sex Assigned at Male 09/06/2022 10:15 AM EDT Legal Sex Male 10:15 AM EDT Gender Identity Male 09/06/2022 10:15 AM EDT Sexual Orientation Straight 07/24/2024 2: 31 PM EDT documented as of this encounter Plan of Treatment Not on file documented as of this encounter Procedures Procedure Name Priority Date/Time Associated Diagnosis Comments PROTHROMBIN TIME WHOLE BLD POC Routine 11/09/2024 10:51 AM EST ~PT, ~INR - ANTI COAG CLINIC Routine 11/09/2024 10:51 AM EST documented in this encounter Results * (ABNORMAL) PROTHROMBIN TIME WHOLE BLD POC (11/09/2024 10:51 AM EST) Protime 41.2(H) 11.1 - 13.5 sec [facility] 11/09/2024 10:5 1 AM EST 11/09/2024 11:50 AM EST us Generic External Data Provider LAB BLOOD ORDERAB LES Final Result [facility] [address] [place] [phone] * (ABNORMAL) ~PT, ~INR - ANTI COAG CLINIC (11/09/2024 10:51 AM EST) Prothrombin Time INR 3.4(H) 0.9 - 1.1 [facility] Comment:METER #: [id number] TERNATIONAL NORMALIZED RATIO (INR) REFERENCE RANGES Reference RangeFor patients not on anticoagulant therapy: 0.9 - 1.1INR ranges for oral anticoagulanttherapy:For prevention and treatment of venous thrombosis and pulmonary embolism: 2.0 - 3.0For acute myocardial infarction with aspirin therapy: 2.0 - 3.0For acute myocardial infarction without aspirin therapy: 3.0 - 4.0For patients with mechanical prosthetic heart valves: 2.5 - 3.5 11/09/2024 10:5 1 AM EST 11/09/2024 11:50 AM EST us Generic External Data Provider LAB BLOOD ORDERAB LES Final Result [facility] [address] [place] [address] [phone] documented in this encounter Visit Diagnoses Not on filedocumented in this encounter Additional Health Concerns Assessment Noted Time PHQ-9 Depression Total Score: 12 024 2:22 PM EDT documented as of this encounter Care Teams Senior Accounting Manager Relationship Specialty Start Date End Date Mariya Juan MD [address] [place] [address] PCP - General Internal Medicine 04/28/23 documented as of this encounter
--- OUTSIDE RECORDS SUMMARY | 2024-12-07 15:08 | XMS_ITS | Clinical Summary ---
Author Organization [employer] Address [address] [place] [address] Care Team Providers Care Power Tool Repair Technician Name Role Phone Mariya Juan MD Primary Care Pro vider Allergies No known active allergies Medications * This document contains information received from the source organization and may not represent a complete record from that organization. acetaminophen (Tylenol 8 Hour) 650 MG ER tablet Take 2 tablets by mouth every 8 (eight) hours. 021 Active Buprenorphine HCl-Naloxone HCl (Suboxone) 8-[address] 1 Film under the tongue every 12 (twelve) hours. Active cholecalciferol (Vitamin D-3) 50 MCG (1999 UT) tablet Take 1 tablet by mouth at bed time. 021 Active naloxone (Narcan) 4 mg/0.1 mL nasal spray Administer 0.1 mL into affected nostril(s). 020 Active multivitamin (Theragran) tablet take 1 tablet by oral route every day with food 020 Active albuterol 108 (90 Base) MCG/ACT inhalerIndication s:Mild intermittent asthma without complication Inhale 2 puffs every 4 (four) hours if needed for wheezing or shortness of breath. 18 g 3 023 Active albuterol (2.5 MG/3ML) 0.083% nebulizer solutionIndicatio ns:Mild intermittent asthma without complication Take 3 mL (2.5 mg) by nebulization every 4 (four) hours if needed for wheezing or shortness of breath. 75 mL 3 023 Active loratadine (Claritin) 10 MG tabletIndications :Seasonal allergic rhinitis, unspecified trigger Take 1 tablet (10 mg) by mouth in the morning. 90 tablet 1 023 Active Blood Pressure kit 1 each 2 times daily. 1 kit 024 2024 Active fluticasone (Flonase Allergy Relief) 50 MCG/ACT nasal spray Administer 1 spray into each nostril 2 times daily. Shake gently. Before first use, prime pump. After use, clean tip and replace cap. 16 g 12 024 2024 Active warfarin (Coumadin) 5 MG tabletIndications :Mechanical heart valve present Take 2 tablet by mouth every Tuesday, Tuesday, , Tuesday, and Tuesday May be adjusted by coumadin clinic in the future. 60 tablet 3 024 Active Enoxaparin Sodium (Lovenox) 100 MG/ML solution prefilled syringeIndication s:Hx of prosthetic mitral valve Inject 1 mL under the skin 2 times daily. lovenox to be given if INR is 2.0 or less and can be stopped once INR is 2.5 or more 14 mL 2 024 Active sodium chloride (Weakley) 0.65 % nasal spray Administer 1 spray into each nostril if needed for congestion. 15 mL 2 024 2024 Active warfarin (Coumadin) 7.5 MG tabletIndications :Mechanical heart valve present TAKE 1 TABLET BY MOUTH EVERY 6 DAYS A WEEK. TAKE 5MG ON 1 DAY OF THE WEEK. 60 tablet 024 Active atorvastatin (Lipitor) 20 MG tabletIndications :Mixed hyperlipidemia Take 1 tablet (20 mg) by mouth Once per day. 30 tablet 3 024 2024 Active hydrOXYzine pamoate (Vistaril) 25 MG capsuleIndication s:Anxiety state TAKE 1 CAPSULE BY MOUTH EVERY 8 HOURS NEEDED FOR ANXIETY 90 capsule 1 024 Active polyethylene glycol, PEG, 3350 (MiraLax) 17 GM/SCOOP powderIndications :Constipation, unspecified constipation type MIX AND DRINK 17 GM BY MOUTH EVERY DAY IF NEEDED FOR CONSTIPATION 510 g 2 025 Active ondansetron ODT (Zofran-ODT) 4 MG disintegrating tablet DISSOLVE 2 TABLETS ON TOP OF THE TONGUE THEN SWALLOW EVERY 12 HOURS 60 tablet 025 Active polyethylene glycol, PEG, 3350 (MiraLax) 17 GM/SCOOP powderIndications :Constipation, unspecified constipation type MIX AND DRINK 17 GM BY MOUTH EVERY DAY IF NEEDED FOR CONSTIPATION 510 g 2 024 2024 Discontinued(R eorder (will not trigger notification to Pharmacy)) ondansetron ODT (Zofran-ODT) 4 MG disintegrating tablet DISSOLVE 2 TABLETS ON TOP OF THE TONGUE THEN SWALLOW EVERY 12 HOURS 60 tablet 024 2024 Discontinued(R eorder (will not trigger notification to Pharmacy)) Active Problems Problem Noted Date Diagnosed Date Obesity 07/24/2024 Onychomycosis 07/24/2024 Movement disorder 07/24/2024 Attention deficit hyperactiv ity disorder (ADHD), predominantly hyperactive type 07/24/2024 Loud snoring 07/24/2024 Amygdalolith 04/11/2024 Right arm weakness 04/28/2023 Overview (04/28/2023): Was seen at [facility] on 08/17/22 with noted nausea, diaphoresis in exam room, discomfort, profound fatigue, referred to [facility] now. Went to [facility] on 08/18/22 and was admitted for infection and started antibiotics. Blood cultures on 08/18/22 and 08/20/22 grew MSSA. 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 [facility] Transferred to [facility] on 08/21/22 for further management of infective endocarditis with MSSA bacteremia and possible valve replacement (redo). ID consulted. Admission was complicated by sudden onset acute RUE weakness on 08/23/22; code stroke called. CT head/brain w/o contrast showed bilateral frontal intraparenchymal hemorrhage of the brain. ICH score 0. Neurology diagnosed hemorrhages secondary to supratherapeutic anticoagulation as patient INR of 5.5 that day. INR reversed with Vitamin K. Patient was ultimately discharged to home with self-care on 09/14/22 home with . Has VNA services once a day x end of September until Pt completes IV antibiotic medications RUE weakness since [facility] of brain on 08/23/[address]s showed brain bleed improving Has PT in home through [facility]. Assessment & Plan (04/28/2023 10:03 PM EDT): Pt completing OT soon Will refer pt to OT [facility] again Continue hand exercises Followup 3 month or sooner PRN with new PCP Intraparenchymal hemorrhage of brain 04/28/2023 Overview (04/28/2023): Was seen at [facility] on 08/17/22 with noted nausea, diaphoresis in exam room, discomfort, profound fatigue, referred to [facility] now. Went to [facility] on 08/18/22 and was admitted for infection and started antibiotics. Blood cultures on 08/18/22 and 08/20/22 grew MSSA. 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 Plan was to [facility]. Transferred to [facility] on 08/21/22 for further management of infective endocarditis with MSSA bacteremia and possible valve replacement (redo). ID consulted. Admission was complicated by sudden onset acute RUE weakness on 08/23/22; code stroke called. CT head/brain w/o contrast showed bilateral frontal intraparenchymal hemorrhage of the brain. ICH score 0. Neurology diagnosed hemorrhages secondary to supratherapeutic anticoagulation as patient INR of 5.5 that day. INR reversed with Vitamin K. Patient was ultimately discharged to home with self-care on 09/14/22 home with . Has VNA services once a day x end of September until Pt completes IV antibiotic medications Assessment & Plan (04/28/2023 9:57 PM EDT): Upcoming MRI of brain scheduled for 05/07/23 Followup Mild intermittent asthma without complication Overview (04/28/2023): Using Albuterol inhaler 3-4 times a month Well-controlled Assessment & Plan (04/28/2023 10:08 PM EDT): Discontinue Flovent since pt is not using and Asthma is well-controlled Refill albuterol inhaler and solution Followup 3 months or sooner PRN with new PCP Mild major depression 04/28/2023 Overview (04/28/2023): PHQ 9 score was 6 Denies SI Declines therapy at this time Assessment & Plan (04/28/2023 10:05 PM EDT): Followup 3 months or sooner PRN with new PCP Seasonal allergic rhinitis 04/28/2023 Overview (04/28/2023): chronic nasal congestion and allergies. Treats with loratadine and Neti pot. Assessment & Plan (04/28/2023 10:05 PM EDT): Stopped all nasal sprays. Rx Neti pot supplies. If cannot be filled by pharmacy recommend OTC purchase Followup 3 months or sooner PRN with new PCP Health care maintenance 04/28/2023 Overview (04/28/2023): Immunizations: Up to date, received PCV 20 and Pfizer Bivalent Booster today HIV: Nonreactive 12/18/2015 Hep C: Nonreactive 03/12/2019 Hepatitis B: Reactive 03/12/2019 Colonoscopy: Not due yet. Start screening at age 50 PSA: WNL 12/01/22 Lung cancer: Quit 6 months ago. Not due for screening yet. Unknown length of cig use. Followup PRN Eye: Discuss at next visit Dental: Discuss at next visit Constipation 03/17/2023 Overview (04/28/2023): Treating with Ondansetron for nausea. Miralax taken at night daily to regulate his bowel. Stools every 3-4 days. Takes probiotics daily. Drinks 2-3 cups daily w/ electrolyte hydration mix in 1 cup. Assessment & Plan (04/28/2023 10:14 PM EDT): Will continue Miralax Rx colace 1 tab nightly PRN Refill Ondansetron for nausea sx Increase water intake to 8 glasses/day Refer to GI for further evaluation Followup 3 month or sooner PRN with new PCP Bacterial endocarditis 11/03/2022 Overview (04/28/2023): Was seen at [facility] on 08/17/22 with noted nausea, diaphoresis in exam room, discomfort, profound fatigue, referred to [facility] now. Went to [facility] on 08/18/22 and was admitted for infection and started antibiotics. Blood cultures on 08/18/22 and 08/20/22 grew MSSA. 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 [facility]. Transferred to [facility] on 08/21/22 for further management of infective endocarditis with MSSA bacteremia and possible valve replacement (redo). ID consulted. Admission was complicated by sudden onset acute RUE weakness on 08/23/22; code stroke called. CT head/brain w/o contrast showed bilateral frontal intraparenchymal hemorrhage of the brain. ICH score 0. Neurology diagnosed hemorrhages secondary to supratherapeutic anticoagulation as patient INR of 5.5 that day. INR reversed with Vitamin K. Patient was ultimately discharged to home with self-care on 09/14/22 home with . Has VNA services once a day x end of September until Pt completes IV antibiotic medications Completed antibiotics. Infection resolved. No surgery needed. 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 Used cocaine and quit 2014 Never used heroine Assessment & Plan (04/28/2023 10:04 PM EDT): Continue Suboxone Followup PRN Anxiety 05/11/2012 Overview (04/28/2023): Treating w/ hydroxyzine 25 mg 1 tablet TID PRN for anxiety PHQ 9 score was 6 Denies SI Declines therapy at this time Assessment & Plan (04/28/2023 10:06 PM EDT): Followup 3 months or sooner PRN with new PCP Resolved Problems Problem Noted Date Diagnosed Date Resolved Date Depressive disorder 11/06/2014 04/28/20 23 Encounters Date Type Department Care Team Description 11/30/[address] [facility] [address] [place] [address] Mariya Juan MD Medication Question 11/30/[address] [facility] [address] [place] [address] Lyndsay Badillo MA February Recall 11/23/2024 Orders Only GENERIC EXTERNAL DATA DEPARTMENT Provider, Generic External Data 11/21/[address] [facility] [address] [place] [address] Mariya Juan MD Constipation, unspecified constipation type 11/19/2024 Orders Only GENERIC EXTERNAL DATA DEPARTMENT Provider, Generic External Data 11/09/2024 Orders Only GENERIC EXTERNAL DATA DEPARTMENT Provider, Generic External Data 11/01/2024 Orders Only GENERIC EXTERNAL DATA DEPARTMENT Provider, Generic External Data 10/26/[address] [facility] [address] [place] [address] Mariya Juan MD 10/26/2024 Orders Only GENERIC EXTERNAL DATA DEPARTMENT Provider, Generic External Data 10/25/[address] [address] Mariya Juan MD Chart Prep 10/23/[address] [facility] [address] [place] [address] Mariya Juan MD Anxiety state 10/15/2024 Telephone [facility] [address] [place] [address] Sheree Davidson, [facility] Follow-up 10/12/2024 Orders Only GENERIC EXTERNAL DATA DEPARTMENT Provider, Generic External Data 10/02/2024 Orders Only GENERIC EXTERNAL DATA DEPARTMENT Provider, Generic External Data 09/21/2024 Telephone [facility] [address] [place] [address] Mariya Juan MD No Show 09/20/2024 Orders Only GENERIC EXTERNAL DATA DEPARTMENT Provider, Generic External Data 09/13/2024 Orders Only GENERIC EXTERNAL DATA DEPARTMENT Provider, Generic External Data 09/13/[address] [facility] [address] [place] [address] Mariya Juan MD Constipation, unspecified constipation type 09/12/[address] [facility] [address] [place] [address] Mariya Juan MD Mixed hyperlipidemia from Last 3 Months Immunizations Name Administration Dates Next Due DTaP 07/18/1989, 7,12/20/1986,11/19 Hep B, Adolescent or Pediatric 12/10/1998,1997,1998 Hib ([facility]) 10/20/1987 Influenza injectable quadriv alent IIV4 with preservative 07/23/2019,12/18/2015 Influenza injectable quadriv alent preservative free 11/10/2020,11/02/2018 Influenza, IIV3, injectable 11/10/2020,0 07/23/2019,11/02/2018,12/18,11/05/2009,09/11/2004,09/03/2002 ,09/05/2001 Influenza, seasonal, injecta ble, preservative free 07/24/2024 MMR 09/14/1990,12/20/1986 OPV 07/18/1989, 7,01/21/1986,09/19 Pfizer Covid-19 Vaccine 12+ Bivalent 04/28/2023 Pneumococcal Conjugate PCV 20 04/28/2023 Pneumococcal Polysaccharide PPSV23 02/17/2013 TD (adult), 2 Lf tetanus tox oid, preservative free, adsorbed 10/27/1999 Td (adult), 5 Lf tetanus tox oid, preservative free, adsorbed 01/11/2016,07/04/2013 Td (adult), unspecified 01/11/2016,07/04/2013, Tdap 09/08/2010 Varicella 02/13/2002,10/27/1999 Family History Medical History Relation Name Comments Asthma,thyroid dx Mother Brain cancer Mother's Sister maternal cousin brain ca Other Relation Name Status Comments Mother Mother's Sister Other Social History Tobacco Use Types Packs/Day Years Used Date Smoking Tobacco: Former Cigarettes Q uit: 08/23/2022 Passive Smoke Exposure: Never Smokeless Tobacco: Never Tobacco Cessation:Counseling Given: Not Answered Comments:Started smoking tobacco 16 y of age and stopped at [...] your housing situation today? I have nancy naresh 07/24/[address] you li [...] the past 12 months, has t he [employer], gas, oil or water [employer] threatened to shut off services in your [...] Orientation Straight 07/24/2024 2: 31 PM EDT Last Filed Vital Signs Vital Sign Reading Time Taken Comments Blood Pressure 130/72 07/24/2024 1:44 PM EDT Pulse 83 07/24/2024 1:44 PM EDT Temperature 37 ??C (98.6 ??F) 07/24/2024 1:44 PM EDT Respiratory Rate 20 07/24/2024 1:44 PM EDT Oxygen Saturation 96% 07/24/2024 1:44 PM EDT Inhaled Oxygen Concentration - - Weight 115 kg (252 lb 12.8 oz) 07/24/2024 1:44 P M EDT Height 190.5 cm (6' 3 ) 07/24/2024 1:44 PM EDT Body Mass Index 31.6 07/24/2024 1:44 PM EDT Plan of Treatment Health Maintenance Due Date Last Done Comments Alcohol/Substance Use Screening 1997 Family Planning (PISQ) 2000 Hepatitis A Vaccines (1 of 2 - Risk 2-dose series) 2004 COVID-19 Vaccine ( season) 2024 04/28/2023, 03/17/2022, 02/09/2022 Depression Monitoring (PHQ-9) 01/21/2025 07/24/2024, 07/24/2024 Depression Screening 07/24/2025 07/24/2024, 07/24/20 24 SDOH Screening 07/24/2025 07/24/2024 Tobacco Screening 07/24/2025 07/24/2024 DTaP/Tdap/Td Vaccines (10 - Td or Tdap) 01/10/2026 01/11/2016, 01/11/2016, 07/04/2013, Additional history exists Lipid Panel 09/14/2029 09/14/2024, 04/08, 05/20/2022, Additional history exists Zoster Vaccines (1 of 2) 2035 RSV Patients and Patients Aged 60 years or older (1 - 1-dose 75+ series) 2060 HIB Vaccines Completed 10/20/1987 IPV Vaccines Completed 07/18/1989, 10/07, 01/21/1986, Additional history exists Hepatitis B Vaccines Completed 12/10/1998, 08/14/1998, 1998 Pneumococcal Vaccine: Pediatrics (0 to 5 Years) and At-Risk Patients (6 to 49) Years) Completed 04/28/2023, 02/17/2013 Influenza Vaccine Completed 07/24/2024, , 11/10/2020, Additional history exists HIV Screening Completed 09/14/2024 Hepatitis C Screening Completed 09/14/2024 HPV Vaccines Aged Out No longer eligi ble based on patient's age to complete this topic Meningococcal Vaccine Aged Out No linda bandar eligible based on patient's age to complete this topic RSV under 20 months Aged Out No longe r eligible based on patient's age to complete this topic Rotavirus Vaccines Aged Out No longer eligible based on patient's age to complete this topic Procedures Procedure Name Priority Date/Time Associated Diagnosis Comments PROTHROMBIN TIME WHOLE BLD POC Routine 11/23/2024 11:49 AM EST ~PT, ~INR - ANTI COAG CLINIC Routine 11/23/2024 11:49 AM EST PROTHROMBIN TIME WHOLE BLD POC Routine 11/19/2024 11:19 AM EST ~PT, ~INR - ANTI COAG CLINIC Routine 11/19/2024 11:19 AM EST PROTHROMBIN TIME WHOLE BLD POC Routine 11/09/2024 10:51 AM EST ~PT, ~INR - ANTI COAG CLINIC Routine 11/09/2024 10:51 AM EST PROTHROMBIN TIME WHOLE BLD POC Routine 11/01/2024 11:25 AM EST ~PT, ~INR - ANTI COAG CLINIC Routine 11/01/2024 11:25 AM EST PROTHROMBIN TIME WHOLE BLD POC Routine 10/26/2024 11:48 AM EST ~PT, ~INR - ANTI COAG CLINIC Routine 10/26/2024 11:48 AM EST APTT Routine 10/12/2024 11:52 AM EST PROTHROMBIN TIME-INR Routine 10/12/2024 11:52 AM EST MAGNESIUM Routine 10/12/2024 11:52 AM EST COMPREHENSIVE METABOLIC PANEL Routine 10/12/2024 11:52 AM EST CBC WITH AUTO DIFFERENTIAL Routine 10/12/2024 11:[address] HEAD WO CONTRAST Routine 10/12/2024 1 1:00 AM EST PROTHROMBIN TIME WHOLE BLD POC Routine 10/02/2024 1:36 PM EST ~PT, ~INR - ANTI COAG CLINIC Routine 10/02/2024 1:36 PM EST PROTHROMBIN TIME WHOLE BLD POC Routine 09/20/2024 3:52 PM EST ~PT, ~INR - ANTI COAG CLINIC Routine 09/20/2024 3:52 PM EST HIV 1/2 ANTIGEN/ANTIBODY, FOURTH GENERATION W/RFL Routine 09/14/2024 4:32 PM EST Annual physical exam HEPATITIS C AB W/REFL TO HCV RNA, QN, PCR Routine 09/14/2024 4:32 PM EST Annual physical exam HEPATITIS B SURFACE ANTIGEN, EIA Routine 09/14/2024 4:32 PM EST Annual physical exam HEPATITIS B SURFACE ANTIBODY, QUALITATIVE Routine 09/14/2024 4:32 PM EST Annual physical exam HEPATITIS B CORE AB TOTAL Routine 09/14/2024 4:32 PM EST Annual physical exam HEMOGLOBIN A1C Routine 09/14/2024 4:32 PM EST Annual physical exam CBC Routine 09/14/2024 4:32 PM EST Annual physical exam CHLAMYDIA/N. GONORRHOEAE RNA, TMA, UROGENITAL Routine 09/14/2024 4:32 PM EST Annual physical exam VITAMIN D,25-OH,TOTAL,IA Routine 09/14/2024 4:23 PM EST Annual physical exam TSH W/REFLEX TO FT4 Routine 09/14/2024 4 :23 PM EST Annual physical exam SYPHILIS SCREEN Routine 09/14/2024 4:23 PM EST Annual physical exam LIPID PANEL, STANDARD Routine 09/14/2024 4:23 PM EST Annual physical exam COMPREHENSIVE METABOLIC PANEL Routine 09/14/2024 4:23 PM EST Annual physical exam PROTHROMBIN TIME WHOLE BLD POC Routine 09/13/2024 3:06 PM EST ~PT, ~INR - ANTI COAG CLINIC Routine 09/13/2024 3:06 PM EST from Last 3 Months Results * (ABNORMAL) PROTHROMBIN TIME WHOLE BLD POC (11/23/2024 11:49 AM EST) Only the most recent of8 resultswithin the time period is included. Protime 51.2(H) 11.1 - 13.5 sec [facility] 11/23/2024 11:4 9 AM EST 11/23/2024 11:50 AM EST us Generic External Data Provider LAB BLOOD ORDERAB LES Final Result [facility] [address] [place] [address] [phone] * (ABNORMAL) ~PT, ~INR - ANTI COAG CLINIC (11/23/2024 11:49 AM EST) Only the most recent of8 resultswithin the time period is included. Prothrombin Time INR 4.3(H) 0.9 - 1.1 [facility] Comment:METER #: [id number] TERNATIONAL NORMALIZED RATIO (INR) REFERENCE RANGES Reference RangeFor patients not on anticoagulant therapy: 0.9 - 1.1INR ranges for oral anticoagulanttherapy:For prevention and treatment of venous thrombosis and pulmonary embolism: 2.0 - 3.0For acute myocardial infarction with aspirin therapy: 2.0 - 3.0For acute myocardial infarction without aspirin therapy: 3.0 - 4.0For patients with mechanical prosthetic heart valves: 2.5 - 3.5 11/23/2024 11:4 9 AM EST 11/23/2024 11:50 AM EST [employer] External Data Provider LAB BLOOD ORDERAB LES Final Result Performing Organization Address [facility]/ZIP Co de Phone Number [facility] [address] [place] [address] [phone] * (ABNORMAL) Partial Thromboplastin Time, Activated (APTT) (10/12/2024 11:52 AM EST) Partial Thromboplastin Time 46.9(H) 26.0 - 36.8 SEC [facility] Comment:For information rega rding the monitoring of direct thrombininhibitors, please refer to Pharmacy. 10/12/2024 11:5 2 AM EST 10/12/2024 11:56 AM EST [employer] External Data Provider LAB BLOOD ORDERAB LES Final Result Performing Organization Address [facility]/ZIP Co de Phone Number [facility] [address] [place] [address] [phone] * (ABNORMAL) Prothrombin Time-INR (10/12/2024 11:52 AM EST) Prothrombin Time 28.3(H) 10.9 - 12.4 SEC [facility] INTERNATIONAL NORM RATIO 2.4(H) 0.9 - 1.1 [facility] Comment:INTERNATIONAL NORMAL IZED RATIO (INR) REFERENCE RANGES Reference RangeFor patients not on anticoagulant therapy: 0.9 - 1.1INR ranges for oral anticoagulanttherapy:For prevention and treatment of venous thrombosis and pulmonary embolism: 2.0 - 3.0For acute myocardial infarction with aspirin therapy: 2.0 - 3.0For acute myocardial infarction without aspirin therapy: 3.0 - 4.0For patients with mechanical prosthetic heart valves: 2.5 - 3.5 10/12/2024 11:5 2 AM EST 10/12/2024 11:56 AM EST Generic External Data Provider LAB BLOOD ORDERAB LES Final Result Performing Organization Address City/[facility]/ZIP Co de Phone Number [facility] [address] [place] [address] [phone] * Magnesium (10/12/2024 11:52 AM EST) Pathologist [facility] Magnesium 2.1 1.6 - 2.6 mg/dL [facility] 10/12/2024 11:5 2 AM EST 10/12/2024 11:56 AM EST [employer]isma Kidz External Data Provider LAB BLOOD ORDERAB LES Final Result Performing Organization Address City/[facility]/ZIP Co de Phone Number [facility] [address] [place] [address] [phone] * (ABNORMAL) Comprehensive Metabolic Panel (10/12/2024 11:52 AM EST) Only the most recent of2 resultswithin the time period is included. Sodium 140 135 - 145 mmol/L [facility] Potassium 4.1 3.3 - 5.1 mmol/L [facility] Chloride 106 96 - 108 mmol/L [facility] Carbon Dioxide 29 22 - 29 mmol/L [facility] Anion Gap 9(L) 12 - 20 [facility] Urea Nitrogen (BUN) 13 9 - 16 mg/dL [facility] Creatinine, Serum 0.90 0.5 - 1.4 mg/dL [facility] Creatinine Clr Calc Pharmacy 146.8 [facility] Comment:eGFR (calculated fro m the MDRD study equation) and eCrCl(calculated from the Cockcroft-Gault equation) are based ondifferent parameters and may not yield comparable results.If eCrCl result is absurd, please check patient'sheight/weight. Estimated Glomerular Filt Rate >60 [facility] Comment:Chronic Kidney Disea se: Estimated GFR < 60 mL/min/1.89z2Mmvehs Kidney Disease: Estimated GFR < 15 mL/min/1.73m2 Glucose 91 60 - 115 mg/dL [facility] Calcium 9.4 8.4 - 10.2 mg/dL [facility] Bilirubin, Total 0.3 0.0 - 1.0 mg/dL [facility] Aspartate Amino Transferase 62(H) 5 - 37 U/L [facility] Alanine Aminotransferase 99(H) 0 - 40 U/L [facility] Total Protein 8.0 6.5 - 8.0 g/dL [facility] Albumin Level 4.3 3.5 - 5.0 g/dL [facility] Alkaline Phosphatase 136(H) 39 - 117 U/L [facility] 10/12/2024 11:5 2 AM EST 10/12/2024 11:56 AM EST us Generic External Data Provider LAB BLOOD ORDERAB LES Final Result [facility] [address] [place] [phone] * (ABNORMAL) CBC auto differential (10/12/2024 11:37 AM EST) White Blood Count 5.2 4.8 - 10.8 X10*3/uL [facility] Red Blood Count 5.16 4.60 - 5.80 X10*6/uL [facility] Hemoglobin 13.4(L) 14.0 - 18.0 g/dl [facility] Hematocrit 41.8(L) 42.0 - 52.0 % [facility] Mean Corpuscular Volume 81.0 80.0 - 98.0 fL [facility] Mean Corpuscular Hemoglobin 26.0(L) 27.0 - 33.0 pg [facility] Mean Corpuscular HGB Conc 32.1 31.0 - 36.0 g/dl [facility] Red Cell Distribution Width 13.4 11.0 - 16.0 % [facility] Platelet Count 237 160 - 400 X10*3/uL [facility] Mean Platelet Volume 11.0 9.4 - 12.4 fL [facility] Neutrophils Percent Auto 59.1 45 - 73 % [facility] Imm Gran Pct Auto 0.2 0.0 - 0.4 % [facility] Lymphocytes Percent Auto 29.3 20 - 40 % [facility] Monocytes Percent Auto 10.2 2 - 11 % [facility] Eosinophils Percent Auto 0.8 0 - 4 % [facility] Basophils Percent Auto 0.4 0 - 2 % [facility] NRBC Pct Auto 0.0 0.0 - 0.2 /100WBC [facility] Neutrophils Absolute Auto 3.1 2.0 - 8.3 x10*3/uL [facility] Imm Gran Abs Auto 0.01 0.00 - 0.03 X10*3/uL [facility] Lymphocytes Absolute Auto 1.5 1.2 - 4.9 X10*3/uL [facility] Monocytes Absolute Auto 0.5 0.1 - 1.2 X10*3/uL [facility] Eosinophils Absolute Auto 0.0 0.0 - 0.4 X10*3/uL [facility] Basophils Absolute Auto 0.0 0.0 - 0.2 X10*3/uL [facility] NRBC Abs Auto 0.000 0.0 - 0.012 X10*3/uL [facility] 10/12/2024 11:3 7 AM EST 10/12/2024 11:40 AM EST us Generic External Data Provider LAB BLOOD ORDERAB LES Final Result [facility] [address] [place] [phone] * CT Head w/o Contrast (10/12/2024 11:00 AM EST) Anatomical Region Laterality Modality Head, Neck Computed Tomogra phy 10/12/2024 11:0 0 AM EST Narrative 10/12/2024 12:01 PM EST ? [facility] ?[address] ?[place] [address] ? CT Scan Report ? Signed ? Patient: Ludin Mendes ?MR#: [id number] ? : 1985 ?Acct:[id number] ? Age/Sex: 39 / M ?ADM Date: 10/12/24 ? Loc: HO.ED ? Attending Dr: ? Ordering Physician: Kindra Jaramillo NP ?? Date of Service: 10/12/24 ?? Procedure(s): CT head/brain wo IV con ?? Accession Number(s): [id number] ? cc: Mariya Juan MD; Kindra Jaramillo NP ? EXAMINATION: ?? CT HEAD WITHOUT CONTRAST ? CLINICAL INFORMATION: ?? Severe right-sided headache. Recent ICH. ? COMPARISON: ?? 12/01/2023, 08/18/2022. ? TECHNIQUE: ?? Contiguous axial imaging was performed from the skull base to vertex ?? without intravenous administration of contrast. ? This CT examination was performed using dose optimization techniques as ?? appropriate, variously including the following: ?? *Automated exposure control ?? *Adjustment of mA and/or kV according to patient size (this includes ?? techniques or standardized protocols for targeted exams where dose is ?? matched to indication/reason for exam; i.e. extremities or head) ?? *Use of iterative reconstruction technique ? DLP: ?? mGy-cm ? FINDINGS: ?? There has been development/increase in the size of a thin right-sided ?? frontoparietal temporal subdural hematoma measuring up to 5 mm in ?? thickness currently (previously only seen along the tentorium and right ?? middle cranial fossa). There is a focus of hyperintense probable acute ?? blood products on coronal series 7, image 91. ?? Blood products extend along the anterior falx as well, measuring up to ?? 3 mm in thickness. ?? There is mild mass effect upon the right hemisphere, with approximately ?? 3 mm right to left midline shift, and mild mass effect upon the right ?? lateral ventricle. No ventricular trapping or hydrocephalus. ? There is no additional extra-axial fluid collection. ?? There is no gross edema present in the brain parenchyma. Mild diffuse ?? sulcal effacement is noted throughout the right hemisphere. No ?? impending herniation or uncal perching. ?? There are no white matter abnormalities. ?? Basal cisterns are patent. Posterior fossa structures appear normal. ?? No CT evidence of acute territorial infarct. No hyperdense MCA sign. ? Sella and midline structures otherwise appear normal. ?? No significant white matter abnormality is detected. ? Globes, orbits, paranasal sinuses, extracranial soft tissues, mastoids, ?? and tympanic cavities appear normal. There is no bony abnormality ?? identified. ? CT/CT head/brain wo IV con ?? IMPRESSION: ?? 1. Enlarging right subdural hematoma, now encompassing the entire right ?? hemisphere and anterior falx. There is mild mass effect and sulcal ?? effacement, with approximately 3 mm of [id number] midline shift. ?? Close interval follow-up recommended with CT. ?? 2. No acute territorial infarct or gross parenchymal edema. No ?? intra-axial hemorrhage. ?? 3. No white matter abnormalities. ? Findings communicated to Emergency Department, Nahomy LOPEZ via phone ?? call 11:51 AM, 10/12/2024 ? Electronically signed by: ??Jayson Avendano MD ??10/12/2024 11:57 AM EST RP ? Dictated By: ?Jayson Avendano MD ? Signed By: ?<Electronically signed by Jayson Avendano MD in OV> ?10/12/24 1157 ? DD/ 1100 ? TD/TT: 10/12/24 1106 ? [employer] Dispatcher: ? Procedure Note Vladislav, Charmaine - 12/06/[address] [address] [address] Scan Report Signed Patient: Ludin MendesMR#: [id number] : 1985Acct:[id number] Age/Sex: 39 / MADM Date: 10/12/24 Loc: HO.ED Attending Dr: Ordering Physician: Kindra Jaramillo NP Date of Service: 10/12/24 Procedure(s): CT head/brain wo IV con Accession Number(s): [id number] cc: Mariya Juan MD; Kindra Jaramillo NP EXAMINATION: CT HEAD WITHOUT CONTRAST CLINICAL INFORMATION: Severe right-sided headache. Recent ICH. COMPARISON: 12/01/2023, 08/18/2022. TECHNIQUE: Contiguous axial imaging was performed from the skull base to vertex without intravenous administration of contrast. This CT examination was performed using dose optimization techniques as appropriate, variously including the following: *Automated exposure control *Adjustment of mA and/or kV according to patient size (this includes techniques or standardized protocols for targeted exams where dose is matched to indication/reason for exam; i.e. extremities or head) *Use of iterative reconstruction technique DLP: mGy-cm FINDINGS: There has been development/increase in the size of a thin right-sided frontoparietal temporal subdural hematoma measuring up to 5 mm in thickness currently (previously only seen along the tentorium and right middle cranial fossa). There is a focus of hyperintense probable acute blood products on coronal series 7, image 91. Blood products extend along the anterior falx as well, measuring up to 3 mm in thickness. There is mild mass effect upon the right hemisphere, with approximately 3 mm right to left midline shift, and mild mass effect upon the right lateral ventricle. No ventricular trapping or hydrocephalus. There is no additional extra-axial fluid collection. There is no gross edema present in the brain parenchyma. Mild diffuse sulcal effacement is noted throughout the right hemisphere. No impending herniation or uncal perching. There are no white matter abnormalities. Basal cisterns are patent. Posterior fossa structures appear normal. No CT evidence of acute territorial infarct. No hyperdense MCA sign. Sella and midline structures otherwise appear normal. No significant white matter abnormality is detected. Globes, orbits, paranasal sinuses, extracranial soft tissues, mastoids, and tympanic cavities appear normal. There is no bony abnormality identified. CT/CT head/brain wo IV con IMPRESSION: 1. Enlarging right subdural hematoma, now encompassing the entire right hemisphere and anterior falx. There is mild mass effect and sulcal effacement, with approximately 3 mm of [id number]-zo-[id number] midline shift. Close interval follow-up recommended with CT. 2. No acute territorial infarct or gross parenchymal edema. No intra-axial hemorrhage. 3. No white matter abnormalities. Findings communicated to Emergency Department, Nahomy LOPEZ via phone call 11:51 AM, 10/12/2024 Electronically signed by: Jayson Avendano MD 10/12/2024 11:57 AM EST Dictated By: Jayson Avendano MD Signed By: <Electronically signed by Jayson Avendano MD in OV> 10/12/24 1157 DD/ 1100 TD/TT: 10/12/24 1106 [employer] Dispatcher: [facility] External Provider IMG CT PROCEDURES Edited Result - Final * Hepatitis C Antibody with Reflex to HCV, RNA, Quantitative, Real-Time PCR (09/14/2024 4:32 PM EST) [facility] Hepatitis C Antibody Nonreactive Nonreactive [facility] Comment:Antibodies to HCV no t detected; does not exclude early acuteHCV infection. Blood Venous blood specimen / Unknown 09/14/2024 4:32 PM EST 09/14/2024 6:05 PM EST Mariya Cho MD LAB BLOOD ORDERAB LES Final Result [facility] [address] [place] [phone] * Chlamydia/N. Gonorrhoeae RNA, TMA, Urogenitial (09/14/2024 4:32 PM EST) Pathologist [facility] [place] CT PCR NOT DETECTED Not Detect. [facility] Comment:A not detected test result does not exclude the possibilityof infection because test results can be affected byimproper specimen collection, concurrent antibiotic therapy,or the number of organisms in the specimen which may bebelow the sensitivity of the test. As with many diagnostictests, results from the Xpert CT/NG assay should beinterpreted in conjunction with other laboratory andclinical data available to the clinician.Xpert CT/NG performance has not been evaluated in patientsless than 14 years of age. The assay should not be used forthe evaluationof suspected sexual abuse or for other medico-legalindications. Additional testing is recommended in anycircumstance when false positive or false negative resultscould lead to adverse medical, social or psychologicalconsequences. NG PCR NOT DETECTED Not Detect. [facility] Comment:A not detected test result does not exclude the possibilityof infection because test results can be affected byimproper specimen collection, concurrent antibiotic therapy,or the number of organisms in the specimen which may bebelow the sensitivity of the test. As with many diagnostictests, results from the Xpert CT/NG assay should beinterpreted in conjunction with other laboratory andclinical data available to the clinician.Xpert CT/NG performance has not been evaluated in patientsless than 14 years of age. The assay should not be used forthe evaluationof suspected sexual abuse or for other medico-legalindications. Additional testing is recommended in anycircumstance when false positive or false negative resultscould lead to adverse medical, social or psychologicalconsequences. Urine Urethral structure / Unknown 09/14/2024 4:32 PM EST 09/14/2024 6:20 PM EST Narrative [facility] - 09/15/2024 5:25 AM EST Urine us Mariya Cho MD LAB MICROBIOLOGY - GENERAL ORDERABLES Final Result [facility] [address] [place] [phone] * Hepatitis B surface antigen, EIA (09/14/2024 4:32 PM EST) Hepatitis B Surface Ag Negative Negative [facility] Blood Venous blood specimen / Unknown 09/14/2024 4:32 PM EST 09/14/2024 6:05 PM EST Mariya Cho MD LAB BLOOD ORDERAB LES Final Result Performing Organization Address [facility]/ZIP Co de Phone Number [facility] [address] [place] [phone] * Hepatitis B Core Antibody, Total (09/14/2024 4:32 PM EST) Hepatitis B Core Antibody Nonreactive Nonreactive [facility] Blood Venous blood specimen / Unknown 09/14/2024 4:32 PM EST 09/14/2024 6:05 PM EST Mariya Cho MD LAB BLOOD ORDERAB LES Final Result Performing Organization Address [facility] Co de Phone Number [facility] [address] [place] [phone] * HIV-1/2 Antigen and Antibodies, Fourth Generation, with Reflexes (09/14/2024 4:32 PM EST) HIV AB/AG Nonreactive Nonreactive [facility] Comment:HIV-1 p24 Ag and/or HIV-1/HIV-2 Ab not detected.A test result that is nonreactive does not exclude thepossibility of exposure to or infection with HIV-1 and/orHIV-2. Nonreactive results in this assay for individualswith prior exposure to HIV-1 and/or HIV-2 may be due toantigen and antibody levels that are below the limit ofdetection of this assay.The [employer] HIV Ag/Ab Combo assay result andsupplemental assay results should be interpreted inconjunction with the patient's clinical presentation,history and other laboratory results. If the results areinconsistent with clinical evidence, additional testing issuggested to confirm the result. Blood Venous blood specimen / Unknown 09/14/2024 4:32 PM EST 09/14/2024 6:05 PM EST us Mariya Cho MD LAB BLOOD ORDERAB LES Final Result Performing Organization Address [facility]/ZIP Co de Phone Number [facility] [address] [place] [phone] * Hepatitis B Surface Antibody, Qualitative (09/14/2024 4:32 PM EST) [facility] ~Hepatitis B Surface Antibody REACTIVE Nonreactive [facility] Comment:REACTIVE: > 11.99 mI U/mL Blood Venous blood specimen / Unknown 09/14/2024 4:32 PM EST 09/14/2024 6:05 PM EST us Mariya Cho MD LAB BLOOD ORDERAB LES Final Result Performing Organization Address [facility] de Phone Number [facility] [address] [place] [phone] * (ABNORMAL) CBC (09/14/2024 4:32 PM EST) [facility] White Blood Count 4.0(L) 4.8 - 10.8 X10*3/uL [facility] Red Blood Count 5.19 4.60 - 5.80 X10*6/uL [facility] Hemoglobin 13.5(L) 14.0 - 18.0 g/dl [facility] Hematocrit 41.8(L) 42.0 - 52.0 % [facility] Mean Corpuscular Volume 80.5 80.0 - 98.0 fL [facility] Mean Corpuscular Hemoglobin 26.0(L) 27.0 - 33.0 pg [facility] Mean Corpuscular HGB Conc 32.3 31.0 - 36.0 g/dl [facility] Red Cell Distribution Width 13.7 11.0 - 16.0 % [facility] Platelet Count 272 160 - 400 X10*3/uL [facility] Mean Platelet Volume 11.3 9.4 - 12.4 fL [facility] NRBC Pct Auto 0.0 0.0 - 0.2 /100WBC [facility] NRBC Abs Auto 0.000 0.0 - 0.012 X10*3/uL [facility] Blood Venous blood specimen / Unknown 09/14/2024 4:32 PM EST 09/14/2024 6:05 PM EST Mariya Coh MD LAB BLOOD ORDERAB LES Final Result Performing Organization Address City/[facility]/ZIP Co de Phone Number [facility] [address] [place] [phone] * Hemoglobin A1c (09/14/2024 4:32 PM EST) Hemoglobin A1c 5.3 <6.0 % [facility] Comment:Hemoglobin A1C Refer ence Range Adults: 4.8 - 6.0 % Non diabetic: < 6.0 % Goal: < 7.0 %Additional Action Suggested: > 8.0 %Note: Hemoglobin A1c results are invalid for patients with abnormal amounts of HbF. Blood transfusions may impact the HbA1c concentration in the patient sample. Estimated Average Glucose 105 mg/dL [facility] Comment:eAG = Estimated ave rage glucose which is %A1C expressed asaverage glucose, using the formula of the H9L-SguvvhvYtmfaxm Glucose study (ADAG), Diabetes Care, Vol.31,#8,Jun. 2007 Blood Venous blood specimen / Unknown 09/14/2024 4:32 PM EST 09/14/2024 6:05 PM EST us Mariya Cho MD LAB BLOOD ORDERAB LES Final Result Performing Organization Address [facility]/ZIP Co de Phone Number [facility] [address] [place] [phone] * Syphilis Screen (09/14/2024 4:23 PM EST) Syphilis Screen Nonreactive Nonreactive [facility] Blood 09/14/2024 4:23 PM EST 09/14/2024 6:05 PM EST Mariya Cho MD LAB BLOOD ORDERAB LES Final Result Performing Organization Address [facility]/ZIP Co de Phone Number [facility] [address] [place] [phone] * (ABNORMAL) Vitamin D, 25-Hydroxy, Total, Immunoassay (09/14/2024 4:23 PM EST) Vitamin D 25-OH Total 11.7(L) >30 ng/mL [facility] Comment:Health Based Referen ce Values*< 20 ng/mL Tiugmuthn75-85 ng/mL Insufficient> 30 ng/mL Sufficient*Nicanor GIBSON. N Engl J Med. 2007;357:266-280Care must be taken in interpreting Vitamin D results fromdifferent laboratories and methodologies. Published datademonstrated that results from patients undergoinghemodialysis may show a negative bias when tested withvarious automated 25-OH vitamin D assays when compared toLC-MS/MS.When testing samples from patients whose predominant form ofVitamin D is Vitamin D2, such as patients receiving VitaminD2 supplementation, results that are subtherapeutic shouldbe confirmed with another method such as LC-MS/MS. Blood Venous blood specimen / Unknown 09/14/2024 4:23 PM EST 09/14/2024 6:05 PM EST Mariya Cho MD LAB BLOOD ORDERAB LES Final Result [facility] [address] [place] [phone] * TSH with Reflex to Free T4 (09/14/2024 4:23 PM EST) TSH reflex Free T4 2.07 0.32 - 4.0 uIU/mL [facility] Blood 09/14/2024 4:23 PM EST 09/14/2024 6:05 PM EST us Mariya Cho MD LAB BLOOD ORDERAB LES Final Result Performing Organization Address [facility]/ZIP Co de Phone Number [facility] [address] [place] [phone] * (ABNORMAL) Lipid Panel, Standard (09/14/2024 4:23 PM EST) Triglycerides 194(H) <150 mg/dL [facility] Comment:Desirable Triglyceri de: less than 150 mg/dLBorderline High Triglyceride 150-199 mg/dLHigh Triglyceride: 200-499 mg/dLVery High Triglyceride: greater than or equal to 5OO mg/dL Cholesterol 131 <200 mg/dL [facility] Comment:Desirable Cholestero l: less than 200 mg/dLBorderline High Cholesterol: 200-239 mg/dLHigh Cholesterol: greater than 239 mg/dL LDL Cholesterol Calculated 62 <100 mg/dL [facility] Comment:Desirable LDL: less than 100 mg/dLNear Optimal/Above Optimal LDL: 110- 129 mg/dLBorderline High LDL: 130-159 mg/dLHigh LDL: 160-189 mg/dLVery High LDL: greater than or equal to 190 mg/dL HDL Cholesterol 31(L) >40 mg/dL [facility] Comment:Desirable HDL: great er than 40 mg/dL Note: This HDL assay may give artificially low results in patients with liver disease. Blood Venous blood specimen / Unknown 09/14/2024 4:23 PM EST 09/14/2024 6:05 PM EST us Mariya Cho MD LAB BLOOD ORDERAB LES Final Result Performing Organization Address City/[facility]/ZIP Co de Phone Number [facility] [address] [place] [phone] from Last [address] [place] [place] [address] - [employer] Care Teams Power Tool Repair Technician Relationship Specialty Start Date End Date Mariya Juan MD [address] [place] [address] PCP - General Internal Medicine 04/28/23
--- OUTSIDE RECORDS SUMMARY | 2024-12-07 15:08 | XMS_ITS | Encounter Summary ---
Author Organization [employer] Address [address] [facility] [address] [place] [address] Care Team Providers Care Transmission Inspector Name Role Phone Mariya Juan MD Primary Care Pro vider Encounter Details Date Type Department Care Team (Late st Contact Info) Description 11/23/2024 Orders Only GENERIC EXTERNAL DATA DEPARTMENT [...] [facility] Routine 11/23/2024 11:49 AM EST documented in this encounter Results * (ABNORMAL) PROTHROMBIN TIME WHOLE BLD POC (11/23/2024 11:49 AM EST) Protime 51.2(H) 11.1 - 13.5 sec [facility] 11/23/2024 11:4 9 AM EST 11/23/2024 11:50 AM EST us Generic External Data Provider LAB BLOOD ORDERAB LES Final Result [facility] [address] [place] [phone] * (ABNORMAL) ~PT, ~INR - ANTI COAG CLINIC (11/23/2024 11:49 AM EST) Prothrombin Time INR 4.3(H) 0.9 - 1.1 [facility] Comment:METER #: [id number] TERNATIONAL NORMALIZED RATIO (INR) REFERENCE RANGES Reference [...] Provider LAB BLOOD ORDERAB LES Final Result [facility] [address] [place] [phone] documented in this encounter Visit Diagnoses Not on filedocumented in this encounter Additional Health Concerns Assessment Noted Time PHQ-9 Depression Total Score: 12 024 2:22 PM EDT documented as of this encounter Care Teams Transmission Inspector Relationship Specialty Start Date End Date Mariya Juan MD [address] [place] [address] PCP - General Internal Medicine 04/28/23 documented as of this encounter
--- OUTSIDE RECORDS SUMMARY | 2024-12-07 15:08 | XMS_ITS | Encounter Summary ---
Author Organization [employer] Address [address] [place] [address] [address] [place] [address] Care Team Providers Care Cook Mess Name Role Phone Mariya Juan MD Primary Care Pro vider Reason for Visit * Reason Onset Date Comments Med Refill 11/21/2024 Encounter Details Date Type Department Care Team ([facility] st Contact Info) Description 11/21/2024 Refill [facility] [address] [place], [place] [phone] Mariya Juan MD [address] [place] [address] Constipation, unspecified constipation type Social History Tobacco Use Types Packs/Day Years [...] PM EDT documented as of this encounter Miscellaneous Notes * Telephone Encounter - Damion Bright - 11/21/2024 1:23 PM EST TC from pt requesting medication refill. Medications needing refill : polyethylene glycol, PEG, 3350 (MiraLax) 17 GM/SCOOP powder ondansetron ODT (Zofran-ODT) 4 MG disintegrating tablet To be sent to: [id number] [place], [place] - [phone] [facility] documented in this encounter Plan of Treatment Not on file documented as of this encounter Visit Diagnoses Diagnosis Constipation, unspecified constipation type documented in this encounter Additional Health Concerns Assessment Noted Time PHQ-9 Depression Total Score: 12 024 2:22 PM EDT documented as of this encounter Care Teams Cook Mess Relationship Specialty Start Date End Date Mariya Juan MD [address] [place] [phone] PCP - General Internal Medicine 04/28/23 documented as of this encounter
--- OUTSIDE RECORDS SUMMARY | 2024-12-07 15:08 | XMS_ITS | Encounter Summary ---
Author Organization [employer] Address [address] [facility] 7t [place] [address] Care Team Providers Care Inspector Rough Castings Name Role Phone Mariya Juan MD Primary Care Pro vider Encounter Details Date Type Department Care Team (Late st Contact Info) Description 11/19/2024 Orders Only GENERIC EXTERNAL DATA DEPARTMENT [...] Comments PROTHROMBIN TIME WHOLE BLD POC Routine 11/19/2024 11:19 AM EST ~PT, ~INR - ANTI COAG CLINIC Routine 11/19/2024 11:19 AM EST documented in this encounter Results * (ABNORMAL) PROTHROMBIN TIME WHOLE BLD POC (11/19/2024 11:19 AM EST) Protime 49.6(H) 11.1 - 13.5 sec [facility] 11/19/2024 11:1 9 AM EST 11/19/2024 11:21 AM EST us Generic External Data Provider LAB BLOOD ORDERAB LES Final Result [facility] [address] [place] [phone] * (ABNORMAL) ~PT, ~INR - ANTI COAG CLINIC (11/19/2024 11:19 AM EST) Prothrombin Time INR 4.1(H) 0.9 - 1.1 [facility] Comment:METER #: [id number] TERNATIONAL NORMALIZED RATIO (INR) REFERENCE RANGES Reference RangeFor patients not on anticoagulant therapy: 0.9 - 1.1INR ranges for oral anticoagulanttherapy:For prevention and treatment of venous thrombosis and pulmonary embolism: 2.0 - 3.0For acute myocardial infarction with aspirin therapy: 2.0 - 3.0For acute myocardial infarction without aspirin therapy: 3.0 - 4.0For patients with mechanical prosthetic heart valves: 2.5 - 3.5 11/19/2024 11:1 9 AM EST 11/19/2024 11:21 AM EST us Generic External Data Provider LAB BLOOD ORDERAB LES Final Result [facility] [address] [place] [phone] [phone] documented in this encounter Visit Diagnoses Not on filedocumented in this encounter Additional Health Concerns Assessment Noted Time PHQ-9 Depression Total Score: 12 024 2:22 PM EDT documented as of this encounter Care Teams Inspector Rough Castings Relationship Specialty Start Date End Date Mariya Juan MD [address] [place] [address] PCP - General Internal Medicine 04/28/23 documented as of this encounter
--- OUTSIDE RECORDS SUMMARY | 2024-12-07 15:08 | XMS_ITS | Encounter Summary ---
Author Organization [employer] Address [address] [place] [address] 7t [place] [address] Care Team Providers Care Surface Ship Usw Supervisor Name Role Phone Kay Dennis Primary Care Provider +1- [phone] Mariya Juan MD Primary Care Pro vider Encounter Details Date Type Department Care Team (Late st Contact Info) Description 02/09/2023 Telephone [facility] [address] [place] [phone] Kay Dennis FNP [address] [place] [address] Dept [place] [address] Social History Tobacco Use Types Packs/Day Years Used Date Smoking Tobacco: Never Passive Smoke Exposure: Never Alcohol Use Standard Drinks/Week Comments Never 0 (1 standard drink = 0.6 oz pur e alcohol) Sex and Gender Information Value Date Recorded Sex Assigned at Male 09/06/2022 10:15 AM EDT Legal Sex Male 10:15 AM EDT Gender Identity Male 09/06/2022 10:15 AM EDT Sexual Orientation Straight 07/24/2024 2: 31 PM EDT documented as of this encounter Miscellaneous Notes * Telephone Encounter - Melba Soto LPN - 02/09/2023 11:32 AM EDT Critical Result line call received now. INR today 2.0 Range normal 2.5 -3.5 Missed dose yesterday. Warfarin today, . Tuesday 12.5mg Tuesday return to Warfarin 7.5mg Warfarin 10mg Tuesday per nml dose. Recheck on Tuesday02/16/23. Please review above with PCP RN wants to know if Lovenox is indicated for patient. Patient has at home. Please contact Pattie or Patient if Lovenox is indicated. documented in this encounter Plan of Treatment Not on file documented as of this encounter Visit Diagnoses Not on filedocumented in this encounter Care Teams Surface Ship Usw Supervisor Relationship Specialty Start Date End Date Kay Dennis FNP PCP - General Family Medicine 07/05/22 04/27/23 Mariya Juan MD [address] [place] [phone] PCP - General Internal Medicine 04/28/23 documented as of this encounter
--- OUTSIDE RECORDS SUMMARY | 2024-12-07 15:08 | XMS_ITS | Encounter Summary ---
Author Organization [employer] Address [address] [place] [address] 7t [place] [address] Care Team Providers Care Other Sales Support Worker Name Role Phone Mariya Juan MD Primary Care Pro vider Reason for Visit * Reason Comments Med Refill Encounter Details Date Type Department Care Team (Late st Contact Info) Description 05/23/2023 Refill [facility] MEDICINE [address] [place] [address] Kay Dennis FNP [address] [place] [address] Dept [place] [address] Social History Tobacco Use Types Packs/Day Years Used Date Smoking Tobacco: Former Cigarettes Q uit: 08/23/2022 Passive Smoke Exposure: Never Smokeless Tobacco: Never Alcohol Use Standard Drinks/Week Comments Not Currently 0 (1 standard drink = 0.6 oz pur e alcohol) Depression Answer Date Recorded Patient Health Questionnaire-9 Score 6 04/28/2023 Depression Answer Date Recorded Patient Health Questionnaire-2 Score 0 04/28/2023 Sex and Gender Information Value Date Recorded Sex Assigned at Male 09/06/2022 10:15 AM EDT Legal Sex Male 10:15 AM EDT Gender Identity Male 09/06/2022 10:15 AM EDT Sexual Orientation Straight 07/24/2024 2: 31 PM EDT COVID-19 Exposure Response Date Recorded In the last 10 days, have yo u been in contact with someone who was confirmed or suspected to have Coronavirus/COVID-19? No / Unsure 04/28/2023 1:48 PM EDT documented as of this encounter Plan of Treatment Not on file documented as of this encounter Visit Diagnoses Not on filedocumented in this encounter Additional Health Concerns Assessment Noted Time PHQ-9 Depression Total Score: 6 04/28/20 2:32 PM EDT documented as of this encounter Care Teams Other Sales Support Worker Relationship Specialty Start Date End Date Mariya Juan MD [address] [place] [phone] PCP - General Internal Medicine 04/28/23 documented as of this encounter
--- OUTSIDE RECORDS SUMMARY | 2024-12-07 15:08 | XMS_ITS | Encounter Summary ---
Author Organization [employer] Address [address] [place] [address] 7t [place] [address] Care Team Providers Care Dictating Transcribing Machine Servicer Name Role Phone Kay Dennis PRINTING PLATE SETTER Primary Care Provider +1- [phone] Mariya Juan MD Primary Care Pro vider Encounter Details Date Type Department Care Team (Late st Contact Info) Description 01/17/2023 Telephone [facility] MEDICINE [address] [place] [phone] Kay Dennis PRINTING PLATE SETTER [address] [place] [address] Dept [place] [address] Social History Tobacco Use Types Packs/Day Years [...] encounter Miscellaneous Notes * Telephone Encounter - Aileen Wilde RN - 01/19/2023 11:00 AM EDT Received follow up call on Critical results line regarding previous request for Lovenox. Lindsay from [facility] is requesting lovenox orders. * Telephone Encounter - Melba Soto LPN - 01/17/2023 12:10 PM EDT Critical Result Line call received now. Patient INR 1.4 today Patient is unsure of missed doses. Warfarin today and tomorrow is 12.5 mg 10 mg Tuesday and a recheck on . Lindsay FERNÁNDEZ questioning if PCP wants Lovenox bridge dosing. Please call her to advised at [phone]. documented in this encounter Plan of Treatment Not on file documented as of this encounter Visit Diagnoses Not on filedocumented in this encounter Care Teams Dictating Transcribing Machine Servicer Relationship Specialty Start Date End Date Kay Dennis FNP PCP - General Family Medicine 07/05/22 04/27/23 Mariya Juan MD [address] [place] [phone] PCP - General Internal Medicine 04/28/23 documented as of this encounter
--- OUTSIDE RECORDS SUMMARY | 2024-12-07 15:08 | XMS_ITS | Encounter Summary ---
Author Organization [employer] Address [address] [place] [address] 7t [place] [address] Care Team Providers Care Early Childhood Teacher Assistant Name Role Phone Kay Dennis Sofie ROACH Primary Care Provider [phone]- [phone] Mariya Juan MD Primary Care Pro vider Encounter Details Date Type Department Care Team (Late st Contact Info) Description 12/16/2022 Orders Only [facility] MEDICINE [address] [place] [address] Aida Villegas LPN Social History Tobacco Use Types Packs/Day Years [...] suspected to have Coronavirus/COVID-19? No / Unsure 11/30/2022 5:33 PM EST documented as of this encounter Plan of Treatment Not on file documented as of this encounter Procedures Procedure Name Priority Date/Time Associated Diagnosis Comments PROTHROMBIN TIME WHOLE BLD POC Routine 12/16/2022 2:35 PM EST ~PT, ~INR - ANTI COAG CLINIC Routine 12/16/2022 2:35 PM EST documented in this encounter Results * (ABNORMAL) PROTHROMBIN TIME WHOLE BLD POC (12/16/2022 2:35 PM EST) Protime 45.7(H) 11.1 - 13.5 sec [facility] 12/16/2022 2:35 PM EST 12/16/2022 2:36 PM EST [facility] External Provider LAB BLO OD ORDERABLES Final Result Performing Organization Address City/[facility] Co de Phone Number [facility] [address] [place] [phone] * (ABNORMAL) ~PT, ~INR - ANTI COAG CLINIC (12/16/2022 2:35 PM EST) Prothrombin Time INR 3.8(H) 0.9 - 1.1 [facility] Comment:METER #: [id number] TERNATIONAL NORMALIZED RATIO (INR) REFERENCE RANGES Reference RangeFor patients not on anticoagulant therapy: 0.9 - 1.1INR ranges for oral anticoagulanttherapy:For prevention and treatment of venous thrombosis and pulmonary embolism: 2.0 - 3.0For acute myocardial infarction with aspirin therapy: 2.0 - 3.0For acute myocardial infarction without aspirin therapy: 3.0 - 4.0For patients with mechanical prosthetic heart valves: 2.5 - 3.5 12/16/2022 2:35 PM EST 12/16/2022 2:36 PM EST [facility] External Provider LAB BLO OD ORDERABLES Final Result Performing Organization Address City/[facility] Co de Phone Number [facility] [address] [place] [phone] documented in this encounter Visit Diagnoses Not on filedocumented in this encounter Care Teams Early Childhood Teacher Assistant Relationship Specialty Start Date End Date Kay Dennis FNP PCP - General Family Medicine 07/05/22 04/27/23 Mariya Juan MD [address] [place] [phone] PCP - General Internal Medicine 04/28/23 documented as of this encounter
--- OUTSIDE RECORDS SUMMARY | 2024-12-07 15:08 | XMS_ITS | Clinical Summary ---
Author Organization [facility] Address [address] [place] [address] Phone Care Team Providers Care Director Diabetes Name Role Phone Sharon Baum MD Primary Care Provider [phone] Allergies No known active allergies Medications Buprenorphine HCl-Naloxone HCl (SUBOXONE) 8-[address] film [address] 0.5 Film under the tongue in the morning and 0.5 Film in the evening. 2 Active warfarin (COUMADIN) 5 MG tablet Take 1 tablet by mouth 1 (one) time each day 2 Active acetaminophen (TYLENOL) 325 MG tablet Take 650 mg by mouth every 6 (six) hours if needed for mild pain Active Albuterol Sulfate 108 (90 Base) MCG/ACT aerosol powder Inhale Activ e cholecalciferol (VITAMIN D-3) 25 MCG (1000 UT) capsule Take 1,000 Units by mouth 1 (one) time each day Active fluticasone HFA (FLOVENT HFA) 110 MCG/ACT inhaler Inhale 1 puff 2 (two) times a day Rinse mouth with water after use to reduce aftertaste and incidence of candidiasis. Do not swallow. 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 Family History Medical History Relation Comments Diabetes Father Relation Status Comments Father Alive Mother Alive Social History Tobacco Use Types Packs/Day Years Used Date Smoking Tobacco: Former Cigarettes Smokeless Tobacco: Never Tobacco Cessation:Counseling Given: Not Answered Alcohol Use Standard Drinks/Week Comments Not Currently 0 (1 standard drink = 0.6 oz pur e alcohol) Sex and Gender Information Value Date Recorded Sex Assigned at Not on file Legal Sex Male 8:36 AM EDT Gender Identity Not on file Sexual Orientation Not on file Last Filed Vital Signs Vital Sign Reading Time Taken Comments Blood Pressure 102/60 12/22/2023 3:28 PM EST Pulse 100 12/22/2023 3:28 PM EST Temperature - - Respiratory Rate - - Oxygen Saturation - - Inhaled Oxygen Concentration - - Weight 110 kg (243 lb) 12/22/2023 3:28 PM EST Height - - Body Mass Index - - Plan of Treatment Health Maintenance Due Date Last Done Comments Influenza Vaccine (#1) 2024 , 07/23/2019, 11/02/2018, Additional history exists Hepatitis B Vaccine Completed 12/10/1998, 08/14/1998, 1998 Pneumococcal Vaccine: Pediat rics (0 to 5 Years) and At-Risk Patients (6 to 64 Years) Completed 04/28/2023, 02/17/2013 Insurance [facility] ([id number]) [facility] ([id number]) DENIS ERNANDEZ [id number] Care Teams Director Diabetes Relationship Specialty Start Date End Date Sharon Baum MD [address] [place] [phone] PCP - General Internal Medicine 10/20/22
--- OUTSIDE RECORDS SUMMARY | 2024-12-07 15:08 | XMS_ITS | Encounter Summary ---
Author Organization [employer] Address [address] [facility] 7t [place] [address] Care Team Providers Care Auto Collision Repair Instructor Name Role Phone Kay Dennis Primary Care Provider [phone] Mariya Juan MD Primary Care Pro vider Reason for Visit * Reason Onset Date Comments Durable Medical Equipment 02/25/2023 Encounter Details Date Type Department Care Team (Late st Contact Info) Description 02/25/2023 Telephone [facility] MEDICINE [address] [place] [phone] Kay Dennis FNP [address] [place] [address] Dept [place] [address] Durable Medical Equipment Social History Tobacco Use Types Packs/Day Years [...] encounter Miscellaneous Notes * Telephone Encounter - Myriam Bhatt - 02/28/2023 9:09 AM EDT Script generated for providers signature * Telephone Encounter - Anjelica Díaz - 02/25/2023 2:09 PM EDT Tc from Tammy with [facility] requesting a script for a Saebo Glove to straighten the pt right hand due to stroke pt had not so long ago. Please sent to script [email or web address] If any questions please contact Tammy at [phone] documented in this encounter Plan of Treatment Not on file documented as of this encounter Visit Diagnoses Not on filedocumented in this encounter Care Teams Auto Collision Repair Instructor Relationship Specialty Start Date End Date Kay Dennis FNP PCP - General Family Medicine 07/05/22 04/27/23 Mariya Juan MD [address] [place] [phone] PCP - General Internal Medicine 04/28/23 documented as of this encounter
--- OUTSIDE RECORDS SUMMARY | 2024-12-07 15:09 | XMS_ITS | Encounter Summary ---
Author Organization [employer] Address [address] [place] [address] 7 [place] [address] Care Team Providers Care Coremaker Pipe Name Role Phone Mariya Juan MD Primary Care Pro vider Reason for Visit * Reason Onset Date Comments Med Refill 08/22/2024 Encounter Details Date Type Department Care Team ([facility] st Contact Info) Description 08/22/2024 Telephone [facility] MEDICINE [address] [place] [address] Mariya Juan MD [address] [place] [address] Med Refill Social History Tobacco Use Types Packs/Day Years [...] encounter Miscellaneous Notes * Telephone Encounter - Abdirizak Trevino - 08/22/2024 10:04 AM EDT Tc from pt requesting a refill for hydrOXYzine pamoate (Vistaril) 25 MG capsule and warfarin (Coumadin) 7.5 MG tablet documented in this encounter Plan of Treatment Not on file documented as of this encounter Visit Diagnoses Not on filedocumented in this encounter Additional Health Concerns Assessment Noted Time PHQ-9 Depression Total Score: 12 024 2:22 PM EDT documented as of this encounter Care Teams Coremaker Pipe Relationship Specialty Start Date End Date Mariya Juan MD [address] [place] [phone] PCP - General Internal Medicine 04/28/23 documented as of this encounter
--- OUTSIDE RECORDS SUMMARY | 2024-12-07 15:09 | XMS_ITS | Encounter Summary ---
Author Organization [employer] Address [address] [place] [address] 7 [place] [address] Care Team Providers Care Payroll Coordinator Name Role Phone Mariya Juan MD Primary Care Pro vider Reason for Visit * Reason Onset Date Comments Med Refill 04/20/2024 Encounter Details Date Type Department Care Team ([facility] st Contact Info) Description 04/20/2024 Telephone [facility] MEDICINE [address] [place], [place] [phone] Mariya Juan MD [address] [place] [address] Med Refill Social History Tobacco Use Types Packs/Day Years Used Date Smoking Tobacco: Former Cigarettes Q uit: 08/23/2022 Passive Smoke Exposure: Never Smokeless Tobacco: Never Alcohol Use Standard Drinks/Week Comments Not Currently 0 (1 standard drink = 0.6 oz pur e alcohol) Depression Answer Date Recorded Patient Health Questionnaire-9 Score 6 04/28/2023 Housing Stability Answer Date Recorded What is your housing situation today? I have nancycherise infante 09/12/[address] you li ve. Do you have problems with any of the following? None of the above 09/12/2023 Food Insecurity Answer Date Recorded Within the past 12 months, y ou worried that your food would run out before you got money to buy more: Never True 09/12/2023 Within the past 12 months,th e food you bought just didn't last and you didn't have enough money to get more: Never True 04/2023 Transportation Answer Date Recorded In the past 12 months, has l ack of transportation kept you from medical appts, meetings, work or from getting things needed for daily living? No 09/12/2023 Utilities Answer Date Recorded In the past 12 months, has t he electric, gas, oil or water company threatened to shut off services in your home? No 09/12/2023 Depression Answer Date Recorded Patient Health Questionnaire-2 Score 0 04/28/2023 Sex and Gender Information Value Date Recorded Sex Assigned at Male 09/06/2022 10:15 AM EDT Legal Sex Male 10:15 AM EDT Gender Identity Male 09/06/2022 10:15 AM EDT Sexual Orientation Straight 07/24/2024 2: 31 PM EDT documented as of this encounter Miscellaneous Notes * Telephone Encounter - Olga Mendes RN - 04/24/2024 3:53 PM EDT Telephone call placed to Freida at [facility] Coumadin clinic. Gave orders to continue lovenox and recheck INR in 3 days. If at goal then, can stop lovenox. Freida repeated this back to me.She did request that going forward, if we could edit sig on lovenox to be specific parameters (ie lovenox to be given if INR is 2.0 or less and can be stopped once INR is 2.5 or more) it would be very helpful so that they can use it as a standing order and wont have to call us repeatedly. Please inform coumadin clinic that I would like pt to continue lovenox and to repeat INR in next 3days if at goal INR then can stop lovenox thanks * Telephone Encounter - Inocencia Cordova RN - 04/24/2024 1:31 PM EDT Received call from Freida from [facility] coumadin clinic. Pt back today for recheck, INR now 2.0. pt seen on 04/17 last and his INR was 1.5. they want to know if pt should continue the Lovenox for now or cancel and repeat INR on Tuesday. They will increase his next dose to 10 mg from 7.5. will task to team nurses to follow up per PCP. * Telephone Encounter - Blanca Abbott RN - 04/20/2024 4:01 PM EDT TC placed to [facility] Anticoagulation to inquire when pt last got INR drawn. According to the law firm receptionist the pt was to come for a recheck today as pt had a low INR of 1.5 Tuesday. Pt is reported to be very noncompliant with INR appts. * Telephone Encounter - Mary Ann Gallego LPN - 04/20/2024 3:45 PM EDT Please review. * Telephone Encounter - Paulina [place] - 04/20/2024 3:43 PM EDT TC from pt requesting medication refill. Medications needing refill : Enoxaparin Sodium (Lovenox) 100 MG/ML solution prefilled syringe To be sent to: [id number] [address] [facility] documented in this encounter Plan of Treatment Not on file documented as of this encounter Visit Diagnoses Not on filedocumented in this encounter Additional Health Concerns Assessment Noted Time PHQ-9 Depression Total Score: 04/28/20 23 2:32 PM EDT documented as of this encounter Care Teams Payroll Coordinator Relationship Specialty Start Date End Date Mariya Juan MD [address] [place] [phone] PCP - General Internal Medicine 04/28/23 documented as of this encounter
--- OUTSIDE RECORDS SUMMARY | 2024-12-07 15:09 | XMS_ITS | Encounter Summary ---
Author Organization [employer] Address [address] [facility] 7t [place] [address] Care Team Providers Care Certified Emergency Vehicle Technician Name Role Phone Mariya Juan MD Primary Care Pro vider Reason for Visit * Reason Onset Date Comments February Recall 11/30/2024 Encounter Details Date Type Department Care Team ([facility] st Contact Info) Description 11/30/2024 Telephone [facility] [address] [place] [address] Lyndsay Badillo [place] February Recall Social History Tobacco Use Types Packs/Day Years [...] encounter Miscellaneous Notes * Telephone Encounter - Lyndsay Badillo MA - 11/30/2024 9:21 AM EST T/C- Corn Lab Technician Left Voice Mail to return call to schedule an appointment. Recall letter sent. Appointment: Office Visit Note: labs,symptoms ,weight ,consults Month: February With: Ho Please schedule appointment if Patient calls Back. documented in this encounter Plan of Treatment Not on file documented as of this encounter Visit Diagnoses Not on filedocumented in this encounter Additional Health Concerns Assessment Noted Time PHQ-9 Depression Total Score: 12 024 2:22 PM EDT documented as of this encounter Care Teams Certified Emergency Vehicle Technician Relationship Specialty Start Date End Date Mariya Juan MD [address] [place] [id number] PCP - General Internal Medicine 04/28/23 documented as of this encounter
--- OUTSIDE RECORDS SUMMARY | 2024-12-07 15:09 | XMS_ITS | Data Portability ---
Author Organization [place] - [facility], Allergy Address [address] [facility] [address] [place] [address] Care Team Providers Care Hemmer Lockstitch Name Role Phone NAME, KEIRA Primary Care [...] 50 mcg/actua tion nasal spray,darrin pension 0[address] [id number], [address] [place], [place], [phone], 15:20:32 Patient TargetsNo targets recorded. Patient InstructionsNo instructions recorded. Reason for Referral None Reported. 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 Procedures Surgical History Date Name Laterality Status Provider Name and Address Organization Details Recorded Time Heart Surgery completed Daphnie Welsh [place] - [facility] 04/11/2024 15:01:33 Imaging Results None recorded. Procedure Notes None recorded. Medical Equipment None Reported. Allergies No known drug allergies Medications Name Sig Start Date Stop Date Status Note LastModified by Organization Details LastModified Time albuterol active Not Available Not Angy ilable Not Available Miralax active Not Available Not Avail able Not Available Flonase Allergy Relief 50 mcg/actuati on nasal spray,suspe nsion Nunnelly 2 sprays in both nostrils once daily x 30 days 024 active Not Available Not Available Not Avai lable Vitals Date Recorded Body height Body mass index (BMI) Body weight Provider Name and Address Organization Details Last Updated DateTime 08/30/2024 190.5 cm 30 kg/m2 369719.17 g Nelli Fishman [place] - [facility] 08/30/2024 10:37:44 Date Recorded Body height Body mass index (BMI) Body weight Provider Name and Address Organization Details Last Updated DateTime 04/11/2024 190.5 cm 30 kg/m2 371931.17 g Daphnie Welsh [place] - [facility] 04/11/2024 14:58:50 Social History None recorded. Functional Status None recorded. Mental Status None recorded. Family History Nothing Reported. Medical History No medical history recorded. Past Encounters Encounter ID Performer Location Encounter Start Date Encounter Closed Date Diagnosis/Indication Diagnosis SNOMED-CT Code Diagnosis ICD10 Code Diagnosis Note [id number] CHANI KIM PA-C [facility] [address] [place] [address] 04/11/2024 14:35:25 04/11/2024 15:13:40 Amygdalolith 4107807 J35.8 Allergic rhinitis 432858 04 J30.89 [id number] EDDIE MONTES MD [facility] [address] [place] [address] 08/30/2024 10:28:36 08/30/2024 10:58:17 Amygdalolith [id number] J35.8 Discourage d surgery. Recommend observatio n. [...] Roberts Member ID Guarantor Name 04/11/2024 1 [facility] [place] - DOS ON OR AFTER 2023 - MEDICARE ADVANTAGE [place] & [place] (MEDICARE REPLACEMENT/ADV ANTAGE - PPO) Ludin Mendes [id number] Ludin Mendes Notes Date Note Type Note [...] did not continue it. CHANI KIM PA-C [address] [place] [address], [phone], [place] - [facility] 04/11/2024 15:25:28 08/30/2024 text/html 38-year-old male presents for evaluation of tonsil stones. Bleeding has resolved. He has not been using flonase but finds mouth rinses helpful. He is less bothered than before. EDDIE MONTES MD [address] [place] [address],[address], [address], [place] - [facility] 08/30/2024 11:00:13
--- OUTSIDE RECORDS SUMMARY | 2024-12-07 15:09 | XMS_ITS | Encounter Summary ---
Author Organization [employer] Address [address] [place] [address] 7 [place] [address] Care Team Providers Care Tool Designer Name Role Phone Mariya Juan MD Primary Care Pro vider Reason for Visit * Reason Onset Date Comments Medication Question 11/30/2024 Encounter Details Date Type Department Care Team ([facility] st Contact Info) Description 11/30/2024 Telephone [facility] [address] [place], [place] [phone] Mariya Juan MD [address] [place] [address] Medication Question Social History Tobacco Use Types Packs/Day Years [...] the past 12 months, has t he [employer], gas, oil or water [employer] threatened to shut off services in your [...] encounter Miscellaneous Notes * Telephone Encounter - Elisa Vasquez RN - 11/30/2024 3:34 PM EST Telephone call to the pt regarding the previous message . Pt states he had the medication ordered by another provider . Pt was requesting a refill . Pt was advised that an appt would be needed for this . Pt was advised of the [facility] hours tomorrow morning as his PCP is out . Pt verbalized understanding ,and agrees with the plan. * Telephone Encounter - Damion Bright - 11/30/2024 2:57 PM EST Tc from pt requesting melatonin to fall asleep easier. IF any questions contact pt at [phone] documented in this encounter Plan of Treatment Not on file documented as of this encounter Visit Diagnoses Not on filedocumented in this encounter Additional Health Concerns Assessment Noted Time PHQ-9 Depression Total Score: 12 024 2:22 PM EDT documented as of this encounter Care Teams Tool Designer Relationship Specialty Start Date End Date Mariya Juan MD [address] [place] [address] PCP - General Internal Medicine 04/28/23 documented as of this encounter
[2024-12-07 15:12] LABS: Prothrombin Time Whole Bld POC 26.8 sec (11.1-13.5); ~PT, ~INR - Anti Coag Clinic 2.2 (0.9-1.1)
--- NOTE | 2024-12-07 15:17 | MHC.OFFVISCO ---
Intake Intake Visit Reasons: Anticoagulation Allergies hydrocodone [From VICODIN] Allergy (Unknown, Verified 12/07/24 15:06) GI UPSET lovenox Adverse Reaction (Intermediate, Uncoded 12/07/24 15:06) Abdominal Pain Medication List - Last Reconciled 12/07/24 by Grace Mccloud RN acetaminophen 325 mg PO QID PRN 7 days acetaminophen ER (Tylenol Arthritis Pain) 1,300 mg PO Q8H PRN albuterol sulfate 90 mcg/actuation (ProAir HFA) 2 puffs inhalation Q4-6H PRN atorvastatin 20 mg PO DAILY blood pressure test kit-large As directed buprenorphine-naloxone 8-2 mg (Suboxone) 1 film sublingual BID celecoxib (Celebrex) 200 mg PO DAILY PRN coenzyme Q10 (Co Q-10) PO fluticasone propionate 50 mcg/actuation sprays intranasal hydroxyzine pamoate 25 mg PO TID inhalational spacing device ([employer] Pascale VHC spacer) As directed loratadine 10 mg PO DAILY melatonin 5 mg PO BEDTIME omeprazole 20 mg PO DAILY ondansetron 4 mg PO Q8H PRN 4 days polyethylene glycol 3350 (Miralax) 17 grams PO DAILY sodium chloride 0.65% (Deep Sea Nasal) sprays intranasal warfarin 7.5 mg See Protocol PO 2XW warfarin 10 mg See Protocol PO 5XW Nursing Note INR 2.2 out of therapeutic range 2.5-3.5 Medications and supplements reviewed Patient status: MISSED 2 DOSES OF WARFARIN LAST WEEK - HE HAD THE FLU Medications or supplements: STATES NO CHANGES Diet: GOOD Denies any signs and symptoms of bleeding or clotting or unusual bruising Bleeding, bruising, clotting discussed Nutritional guidance given: AVOID GREENS Dose: DUE TO MISSED DOSES AND HX OF BLEEDING - RESUME USUAL DOSE 3.75MG X 1 DAY/ 7.5MG X 6 DAYS NO BOOSTER DOSE F/U INR Date : 10 DAYS ?? Patient verbalizing understanding of instructions given with read back and dates on paper . Anti-Coag Initial Assessment Social Hx Patient Tobacco Use Status: Former Tobacco user Tobacco use type: Cigarette alcohol intake: never Alcohol intake frequency: does not drink Coding Level of Care Code Est Patient Level 1 Diagnoses Current use of anticoagulant therapy Z79.01 Results AMB INR Fingerstick AMB INR Fingerstick 2.2 Last Edit by Grace Mccloud RN on 12/07/24 15:14 MANUAL ENTRY Assessment & Plan Assessment & Plan (1) Current use of anticoagulant therapy: Code(s): Z79.01 - salvage determiner (current) 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
== END 2024-12-07 15:22 | disposition home or self-care (01) ==
LOC: HO.ACS 15:06
PROVIDERS: PCP Student in an Organized Health Care Education/Training Program; Visit Provider Internal Medicine
DX: Z79.01 Long term (current) use of anticoagulants (principal)

== ENCOUNTER 2024-12-19 13:44 | Outpatient (AMB) | payer OTHER, SELFPAY ==
[2024-12-19 14:06] LABS: ~PT, ~INR - Anti Coag Clinic 2.8 (0.9-1.1)
--- NOTE | 2024-12-19 14:11 | MHC.OFFVISCO ---
Intake Intake Visit Reasons: Anticoagulation Allergies hydrocodone [From VICODIN] Allergy (Unknown, Verified 12/19/24 14:01) GI UPSET lovenox Adverse Reaction (Intermediate, Uncoded 12/07/24 15:06) Abdominal Pain Medication List - Last Reconciled 12/19/24 by Trinh Giron RN acetaminophen 325 mg PO QID PRN 7 days acetaminophen ER (Tylenol Arthritis Pain) 1,300 mg PO Q8H PRN albuterol sulfate 90 mcg/actuation (ProAir HFA) 2 puffs inhalation Q4-6H PRN atorvastatin 20 mg PO DAILY blood pressure test kit-large As directed buprenorphine-naloxone 8-2 mg (Suboxone) 1 film sublingual BID celecoxib (Celebrex) 200 mg PO DAILY PRN coenzyme Q10 (Co Q-10) PO fluticasone propionate 50 mcg/actuation sprays intranasal hydroxyzine pamoate 25 mg PO TID inhalational spacing device ([employer] Pascale VHC spacer) As directed loratadine 10 mg PO DAILY melatonin 5 mg PO BEDTIME omeprazole 20 mg PO DAILY ondansetron 4 mg PO Q8H PRN 4 days polyethylene glycol 3350 (Miralax) 17 grams PO DAILY sodium chloride 0.65% (Deep Sea Nasal) sprays intranasal warfarin 7.5 mg See Protocol PO 2XW warfarin 10 mg See Protocol PO 5XW Nursing Note NO CP,SOB,DIET/MED CHANGES,FALLS OR SX OF BLEEDING. CONTINUE PRESENT DOSE AND FOLLOW-UP IN 2 WEEKS. GOODUNDERSTANDING OF DOSING INSTR. Anti-Coag Initial Assessment Social Hx Patient Tobacco Use Status: Former Tobacco user Tobacco use type: Cigarette alcohol intake: never Alcohol intake frequency: does not drink Coding Level of Care Code Est Patient Level 1 Diagnoses Current use of anticoagulant therapy Z79.01 Assessment & Plan Assessment & Plan (1) Current use of anticoagulant therapy: Code(s): 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
--- OUTSIDE RECORDS SUMMARY | 2024-12-19 15:08 | XMS_ITS | Encounter Summary ---
Author Organization [employer] Address [address] [place] [address] 7 [place] [address] Care Team Providers Care Sales Representative Leather Goods Name Role Phone Mariya Juan MD Primary Care Pro vider Reason for Visit * Reason Onset Date Comments Med Refill 11/21/2024 Encounter Details Date Type Department Care Team ([facility] st Contact Info) Description 11/21/2024 Refill [facility] MED[facility]INE [address] [place], [place] [phone] Mariya Juan MD [address] [place] [address] Constipation, unspecified constipation type Social History Tobacco [...] MG disintegrating tablet To be sent to: [id number] [place], [place] - [address] [facility] documented in this encounter Plan of Treatment Not on file documented as of this encounter Visit Diagnoses Diagnosis Constipation, unspecified constipation type documented in this encounter Additional Health Concerns Assessment Noted Time PHQ-9 Depression Total Score: 12 024 2:22 PM EDT documented as of this encounter Care Teams Sales Representative Leather Goods Relationship Specialty Start Date End Date Mariya Juan MD [address] [place] [address] PCP - General Internal Medicine 04/28/23 documented as of this encounter
--- OUTSIDE RECORDS SUMMARY | 2024-12-19 15:08 | XMS_ITS | Encounter Summary ---
Author Organization [employer] Address [address] [facility] 7t [place] [address] Care Team Providers Care Optical Systems Engineer Name Role Phone Mariya Juan MD Primary [...] EST) Protime 49.6(H) 11.1 - 13.5 sec [facility] 11/19/2024 11:1 9 AM EST 11/19/2024 11:21 AM EST us Generic External Data Provider LAB BLOOD ORDERAB LES Final Result [facility] [address] [place] [phone] * (ABNORMAL) ~PT, ~INR - ANTI COAG CLINIC (11/19/2024 11:19 AM EST) Prothrombin Time INR 4.1(H) 0.9 - 1.1 [facility] Comment:METER #: [id number] TERNATIONAL NORMALIZED RATIO (INR) REFERENCE RANGES Reference [...] Provider LAB BLOOD ORDERAB LES Final Result [facility] [address] [place] [address] [phone] documented in this encounter Visit Diagnoses Not on filedocumented in this encounter Additional Health Concerns Assessment Noted Time PHQ-9 Depression Total Score: 12 024 2:22 PM EDT documented as of this encounter Care Teams Optical Systems Engineer Relationship Specialty Start Date End Date Mariya Juan MD [address] [place] [address] PCP - General Internal Medicine 04/28/23 documented as of this encounter
--- OUTSIDE RECORDS SUMMARY | 2024-12-19 15:08 | XMS_ITS | Encounter Summary ---
Author Organization [employer] Address [address] [place] [address] 7 [place] [address] Care Team Providers Care Space Studies Faculty Member Name Role Phone Mariya Juan MD Primary Care Pro vider Reason for Visit * Reason Onset Date Comments Med Refill 08/22/2024 Encounter Details Date Type Department Care Team ([facility] st Contact Info) Description 08/22/2024 Telephone [facility] [address] [place] [address] Mariya Juan MD [address] [place] [address] Med Refill Social History Tobacco Use Types [...] documented as of this encounter Care Teams Space Studies Faculty Member Relationship Specialty Start Date End Date Mariya Juan MD [address] [place] [address] PCP - General Internal Medicine 04/28/23 documented as of this encounter
--- OUTSIDE RECORDS SUMMARY | 2024-12-19 15:08 | XMS_ITS | Encounter Summary ---
Author Organization [employer] Address [address] [facility] 7t [place] [address] Care Team Providers Care Data Capture Clerk Name Role Phone Mariya Juan MD Primary [...] EST) Protime 51.2(H) 11.1 - 13.5 sec [facility] 11/23/2024 11:4 9 AM EST 11/23/2024 11:50 AM EST us Generic External Data Provider LAB BLOOD ORDERAB LES Final Result [facility] [address] [place] [phone] * (ABNORMAL) ~PT, ~INR - ANTI COAG CLINIC (11/23/2024 11:49 AM EST) Prothrombin Time INR 4.3(H) 0.9 - 1.1 [facility] Comment:METER #: [id number] TERNATIONAL NORMALIZED RATIO (INR) REFERENCE RANGES Reference [...] Provider LAB BLOOD ORDERAB LES Final Result [facility] [address] [place] [address] [phone] documented in this encounter Visit Diagnoses Not on filedocumented in this encounter Additional Health Concerns Assessment Noted Time PHQ-9 Depression Total Score: 12 024 2:22 PM EDT documented as of this encounter Care Teams Data Capture Clerk Relationship Specialty Start Date End Date Mariya Juan MD [address] [place] [address] PCP - General Internal Medicine 04/28/23 documented as of this encounter
--- OUTSIDE RECORDS SUMMARY | 2024-12-19 15:08 | XMS_ITS | Clinical Summary ---
Author Organization [facility] Address [address] [facility] [facility] [address] [address] [place] [address] Phone Care Team Providers Care Unix Administrator Name Role Phone Sharon Baum MD Primary Care Provider [phone] Allergies No known active allergies Medications Buprenorphine [...] to 64 Years) Completed 04/28/2023, 02/17/2013 Insurance [facility] ([id number]) [facility] ([id number]) DENIS ERNANDEZ [phone] Care Teams Unix Administrator Relationship Specialty Start Date End Date Sharon Baum MD [address] [place] [address] PCP - General Internal Medicine 10/20/22
--- OUTSIDE RECORDS SUMMARY | 2024-12-19 15:08 | XMS_ITS | Encounter Summary ---
Author Organization [employer] Address [address] [place] [address] 7 [place] [address] Care Team Providers Care Instant Powder Supervisor Name Role Phone Mariya Juan MD Primary Care Pro vider Reason for Visit * Reason Onset Date Comments Medication Question 11/30/2024 Encounter Details Date Type Department Care Team ([facility] st Contact Info) Description 11/30/2024 Telephone [facility] [address] [place], [place] [phone] Mariya Juan MD [address] [place] [address] Medication Question Social History Tobacco Use Types [...] the past 12 months, has t he [employer], gas, oil or water [employer] threatened to shut off services in your [...] easier. IF any questions contact pt at [phone] documented in this encounter Plan of Treatment Not on file documented as of this encounter Visit Diagnoses Not on filedocumented in this encounter Additional Health Concerns Assessment Noted Time PHQ-9 Depression Total Score: 12 024 2:22 PM EDT documented as of this encounter Care Teams Instant Powder Supervisor Relationship Specialty Start Date End Date Mariya Juan MD [address] [place] [address] PCP - General Internal Medicine 04/28/23 documented as of this encounter
--- OUTSIDE RECORDS SUMMARY | 2024-12-19 15:08 | XMS_ITS | Encounter Summary ---
Author Organization [employer] Address [address] [place] [address] 7t [place] [address] Care Team Providers Care Director Special Education Name Role Phone Kay Dennis Primary Care Provider [phone] Mariya Juan MD Primary Care Pro vider Encounter Details Date Type Department Care Team (Late st Contact Info) Description 02/09/2023 Telephone [facility] MED[facility]INE [address] [place] [phone] Kay Dennis FNP [address] [place] [address] Dept [place] [address] Social History Tobacco Use Types Packs/Day Years [...] on filedocumented in this encounter Care Teams Director Special Education Relationship Specialty Start Date End Date Kay Dennis FNP PCP - General Family Medicine 07/05/22 04/27/23 Mariya Juan MD [address] [place] [address] PCP - General Internal Medicine 04/28/23 documented as of this encounter
--- OUTSIDE RECORDS SUMMARY | 2024-12-19 15:08 | XMS_ITS | Encounter Summary ---
Author Organization [employer] Address [address] [facility] 7t [place] [address] Care Team Providers Care Home Day Care Provider Name Role Phone Mariya Juan MD Primary Care Pro vider Reason for Visit * Reason Onset Date Comments February Recall 11/30/2024 Encounter Details Date Type Department Care Team ([facility] st Contact Info) Description 11/30/2024 Telephone [facility] [address] [place] [address] Lyndsay Badillo [place] February Recall Social History [...] [place] - 11/30/2024 9:21 AM EST T/C- Ep Tech Left Voice Mail to return call to [...] documented as of this encounter Care Teams Home Day Care Provider Relationship Specialty Start Date End Date Mariya Juan MD [address] [place] [address] PCP - General Internal Medicine 04/28/23 documented as of this encounter
--- OUTSIDE RECORDS SUMMARY | 2024-12-19 15:08 | XMS_ITS | Encounter Summary ---
Author Organization [employer] Address [address] [facility] 7t [place] [address] Care Team Providers Care Form Tamping Machine Operator Name Role Phone Kay Dennis Primary Care Provider [phone] Mariya Juan MD Primary Care Pro vider Reason for Visit * Reason Onset Date Comments Durable Medical Equipment 02/25/2023 Encounter Details Date Type Department Care Team (Late st Contact Info) Description 02/25/2023 Telephone [facility]ICINE [address] [place] [phone] Kay Dennis FNP [address] [place] [address] Dept [place] [address] Durable Medical Equipment Social History Tobacco Use [...] long ago. Please sent to script [email or web address] If any questions please contact Tammy at [phone] documented in this encounter Plan of Treatment Not on file documented as of this encounter Visit Diagnoses Not on filedocumented in this encounter Care Teams Form Tamping Machine Operator Relationship Specialty Start Date End Date Kay Dennis FNP PCP - General Family Medicine 07/05/22 04/27/23 Mariya Juan MD [address] [place] [address] PCP - General Internal Medicine 04/28/23 documented as of this encounter
--- OUTSIDE RECORDS SUMMARY | 2024-12-19 15:08 | XMS_ITS | Encounter Summary ---
Author Organization [employer] Address [address] [place] [address] 7t [place] [address] Care Team Providers Care Barrel Stave Inspector Name Role Phone Mariya Juan MD Primary Care Pro vider Reason for Visit * Reason Comments Med Refill Encounter Details Date Type Department Care Team (Late st Contact Info) Description 05/23/2023 Refill [facility] [address] [place] [address] Kay Dennis FNP [address] [place] [address] Dept [place] [address] Social History Tobacco Use Types Packs/Day Years [...] documented as of this encounter Care Teams Barrel Stave Inspector Relationship Specialty Start Date End Date Mariya Juan MD [address] [place] [address] PCP - General Internal Medicine 04/28/23 documented as of this encounter
--- OUTSIDE RECORDS SUMMARY | 2024-12-19 15:08 | XMS_ITS | Encounter Summary ---
Author Organization [employer] Address [address] [facility] 7t [place] [address] Care Team Providers Care Colorectal Surgeon Name Role Phone Mariya Juan MD Primary Care Pro vider Encounter Details Date Type Department Care Team (Late st Contact Info) Description 12/07/2024 Orders Only GENERIC EXTERNAL DATA DEPARTMENT Provider, [...] Comments PROTHROMBIN TIME WHOLE BLD POC Routine 12/07/2024 3:10 PM EST ~PT, ~INR - ANTI COAG CLINIC Routine 12/07/2024 3:10 PM EST documented in this encounter Results * (ABNORMAL) PROTHROMBIN TIME WHOLE BLD POC (12/07/2024 3:10 PM EST) Protime 26.8(H) 11.1 - 13.5 sec [facility] 12/07/2024 3:10 PM EST 12/07/2024 3:11 PM EST us Generic External Data Provider LAB BLOOD ORDERAB LES Final Result [facility] [address] [place] [phone] * (ABNORMAL) ~PT, ~INR - ANTI COAG CLINIC (12/07/2024 3:10 PM EST) Prothrombin Time INR 2.2(H) 0.9 - 1.1 [facility] Comment:METER #: [id number] TERNATIONAL NORMALIZED RATIO (INR) REFERENCE RANGES Reference RangeFor patients not on anticoagulant therapy: 0.9 - 1.1INR ranges for oral anticoagulanttherapy:For prevention and treatment of venous thrombosis and pulmonary embolism: 2.0 - 3.0For acute myocardial infarction with aspirin therapy: 2.0 - 3.0For acute myocardial infarction without aspirin therapy: 3.0 - 4.0For patients with mechanical prosthetic heart valves: 2.5 - 3.5 12/07/2024 3:10 PM EST 12/07/2024 3:11 PM EST us Generic External Data Provider LAB BLOOD ORDERAB LES Final Result [facility] [address] [place] [address] [phone] documented in this encounter Visit Diagnoses Not on filedocumented in this encounter Additional Health Concerns Assessment Noted Time PHQ-9 Depression Total Score: 12 07/24/ 024 2:22 PM EDT documented as of this encounter Care Teams Colorectal Surgeon Relationship Specialty Start Date End Date Mariya Juan MD [address] [place] [address] PCP - General Internal Medicine 04/28/23 documented as of this encounter
--- OUTSIDE RECORDS SUMMARY | 2024-12-19 15:08 | XMS_ITS | Encounter Summary ---
Author Organization [employer] Address [address] [place] [address] 7 [place] [address] Care Team Providers Care Health Unit Coordinator Name Role Phone Mariya Juan MD Primary Care Pro vider Reason for Visit * Reason Onset Date Comments Med Refill 04/20/2024 Encounter Details Date Type Department Care Team ([facility] st Contact Info) Description 04/20/2024 Telephone [facility] MEDICINE [address] [place], [place] [phone] Mariya Juan MD [address] [place] [address] Med Refill Social History Tobacco Use Types [...] EDT Telephone call placed to Freida at [facility] Coumadin clinic. Gave orders to continue [...] PM EDT Received [place] from Fre[place] [facility] [place]. Pt back today for recheck, [...] 04/20/2024 4:01 PM EDT TC placed to [facility] [place] to inquire when pt last got INR drawn. According to the veterinary receptionist the pt was to come for [...] solution prefilled syringe [id number] [id number] [facility] documented in this encounter Plan of Treatment Not on file documented as of this encounter Visit Diagnoses Not on filedocumented in this encounter Additional Health Concerns Assessment Noted Time PHQ-9 Depression Total Score: 04/28/20 23 2:32 PM EDT documented as of this encounter Care Teams Health Unit Coordinator Relationship Specialty Start Date End Date Mariya Juan MD [address] [place] [phone] PCP - General Internal Medicine 04/28/23 documented as of this encounter
--- OUTSIDE RECORDS SUMMARY | 2024-12-19 15:08 | XMS_ITS | Encounter Summary ---
Author Organization [employer] Address [address] [place] [address] 7t [place] [address] Care Team Providers Care Marketing Project Specialist Name Role Phone Kay Dennis ANIMAL BEHAVIOURIST Primary Care Provider [phone] Mariya Juan MD Primary Care Pro vider Encounter Details Date Type Department Care Team (Late st Contact Info) Description 01/17/2023 Telephone [facility] MEDICINE [address] [place] [phone] Kay Dennis ANIMAL BEHAVIOURIST [address] [place] [address] Dept [place] [address] Social History Tobacco Use Types Packs/Day Years [...] dosing. Please call her to advised at [phone]. documented in this encounter Plan of Treatment Not on file documented as of this encounter Visit Diagnoses Not on filedocumented in this encounter Care Teams Marketing Project Specialist Relationship Specialty Start Date End Date Kay Dennis FNP PCP - General Family Medicine 07/05/22 04/27/23 Mariya Juan MD [address] [place] [phone] PCP - General Internal Medicine 04/28/23 documented as of this encounter
--- OUTSIDE RECORDS SUMMARY | 2024-12-19 15:08 | XMS_ITS | Clinical Summary ---
Author Organization [employer] Address [address] [place] [address] 7t [place] [address] Care Team Providers Care Lens Assorter Name Role Phone Mariya Juan MD Primary [...] every day with food 020 Active albuterol (2.5 MG/3ML) 0.083% nebulizer solutionIndicatio ns:Mild intermittent asthma without complication Take 3 mL (2.5 mg) by nebulization every 4 (four) hours if needed for wheezing or shortness of breath. 75 mL 3 023 Active loratadine (Claritin) 10 MG tabletIndications :Seasonal allergic rhinitis, unspecified trigger Take 1 tablet (10 mg) by mouth in the morning. 90 tablet 1 023 Active fluticasone (Flonase Allergy Relief) 50 MCG/ACT [...] 14 mL 2 024 Active sodium chloride ([place]) 0.65 % nasal spray Administer 1 spray [...] EVERY 12 HOURS 60 tablet 025 Active albuterol 108 (90 Base) MCG/ACT inhalerIndication s:Mild intermittent asthma without complication Inhale 2 puffs every 4 (four) hours if needed for wheezing or shortness of breath. 18 g 3 025 Active albuterol 108 (90 Base) MCG/ACT inhalerIndication s:Mild intermittent asthma without complication Inhale 2 puffs every 4 (four) hours if needed for wheezing or shortness of breath. 18 g 3 023 2024 Discontinued(R eorder (will not trigger notification to Pharmacy)) Blood Pressure kit 1 each 2 times daily. 1 kit 024 2024 polyethylene glycol, PEG, 3350 (MiraLax) 17 GM/SCOOP [...] weakness 04/28/2023 Overview (04/28/2023): Was seen at [facility] on 08/17/22 with noted nausea, diaphoresis in exam room, discomfort, profound fatigue, referred to [facility] now. Went to [facility] on 08/18/22 and was admitted for infection and started antibiotics. Blood cultures on 08/18/22 and 08/20/22 grew MSSA. 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 Plan was to transfer [facility]. Transferred to [facility] [place] 08/21/22 for further management of infective [...] completes IV antibiotic medications RUE weakness since IPH of brain on 08/23/[address]s showed brain bleed improving Has PT in home through [facility]. 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 Went to [facility] on 08/18/22 and was admitted for infection and started antibiotics. Blood cultures on 08/18/22 and 08/20/22 grew MSSA. 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 Plan was to transfer [facility]. Transferred to [facility] [place] 08/21/22 for further management of infective [...] endocarditis 11/03/2022 Overview (04/28/2023): Was seen at [facility] on 08/17/22 with noted nausea, diaphoresis in exam room, discomfort, profound fatigue, referred to [facility] now. Went to [facility] on 08/18/22 and was admitted for infection and started antibiotics. Blood cultures on 08/18/22 and 08/20/22 grew MSSA. 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 Plan was to transfer [facility]. Transferred to [facility] [place] 08/21/22 for further management of infective [...] Encounters Date Type Department Care Team Description 12/19/2024 Orders Only GENERIC EXTERNAL DATA DEPARTMENT Provider, Generic External Data 12/10/2024 Refill [facility] [address] [place] [address] Mariya Juan MD Mild intermittent asthma without complication 12/07/2024 Orders Only GENERIC EXTERNAL DATA DEPARTMENT Provider, Generic External Data 11/30/2024 Telephone [facility] [address] [place] [phone] Mariya Juan MD Medication Question 11/30/2024 Telephone [facility] [address] [place] [address] Lyndsay Badillo [place] Samira Recall 11/23/2024 Orders Only GENERIC EXTERNAL DATA DEPARTMENT Provider, Generic External Data 11/21/2024 Refill [facility] [address] [place] [address] Mariya Juan MD Constipation, unspecified constipation type 11/19/2024 Orders Only GENERIC EXTERNAL DATA DEPARTMENT Provider, Generic External Data 11/09/2024 Orders Only GENERIC EXTERNAL DATA DEPARTMENT Provider, Generic External Data 11/01/2024 Orders Only GENERIC EXTERNAL DATA DEPARTMENT Provider, Generic External Data 10/26/2024 Telephone [facility] [address] [place] [address] Mariya Juan MD 10/26/2024 Orders Only GENERIC EXTERNAL DATA DEPARTMENT Provider, Generic External Data 10/25/2024 Telephone [facility] [address] [place] [address] Mariya Juan MD Chart Prep 10/23/2024 Refill [facility] [address] [place] [address] Mariya Juan MD Anxiety state 10/15/2024 Telephone [facility] [address] [place] [address] Sheree Davidson RN Hospital Follow-up 10/12/2024 Orders Only GENERIC EXTERNAL DATA DEPARTMENT Provider, Generic External Data 10/02/2024 Orders Only GENERIC EXTERNAL DATA DEPARTMENT Provider, Generic External Data 09/21/2024 Telephone [facility] [address] [place] [address] Mariya Juan MD No Show 09/20/2024 Orders Only GENERIC EXTERNAL DATA DEPARTMENT Provider, Generic External Data from Last 3 Months Immunizations Name Administration Dates Next Due DTaP 07/18/1989, 7,12/20/1986,11/19 Hep B, Adolescent or Pediatric 12/10/1998,1997,1998 Hib ([facility]) 10/20/1987 Influenza injectable quadriv alent IIV4 with [...] Comments PROTHROMBIN TIME WHOLE BLD POC Routine 12/19/2024 2:04 PM EST ~PT, ~INR - ANTI [facility]AG CLINIC Routine 12/19/2024 2:04 PM EST PROTHROMBIN TIME WHOLE BLD POC Routine 12/07/2024 3:10 PM EST ~PT, ~INR - ANTI COAG CLINIC Routine 12/07/2024 3:10 PM EST PROTHROMBIN TIME WHOLE BLD POC Routine 11/23/2024 [...] COAG CLINIC Routine 09/20/2024 3:52 PM EST HEPATITIS C AB W/REFL TO HCV RNA, QN, PCR Routine 09/14/2024 4:32 PM EST Annual physical exam HIV 1/2 ANTIGEN/ANTIBODY, FOURTH GENERATION W/RFL Routine 09/14/2024 4:32 PM EST Annual physical exam LIPID PANEL, STANDARD Routine 09/14/2024 4:23 PM EST Annual physical exam from Last 3 Months or Most Recently Relevant to Health Maintenance Results * (ABNORMAL) PROTHROMBIN TIME WHOLE BLD POC (12/19/2024 2:04 PM EST) Only the most recent of9 resultswithin the time period is included. Protime 33.0(H) 11.1 - 13.5 sec [facility] 12/19/2024 2:04 PM EST 12/19/2024 2:06 PM EST us Generic External Data Provider LAB BLOOD ORDERAB LES Final Result Performing Organization Address City/[facility] Co de Phone Number [facility] [address] [place] [phone] * (ABNORMAL) ~PT, ~INR - ANTI COAG CLINIC (12/19/2024 2:04 PM EST) Only the most recent of9 resultswithin the time period is included. Prothrombin Time INR 2.8(H) 0.9 - 1.1 [facility] Comment:METER #: [id number] TERNATIONAL NORMALIZED RATIO (INR) REFERENCE RANGES Reference RangeFor patients not on anticoagulant therapy: 0.9 - 1.1INR ranges for oral anticoagulanttherapy:For prevention and treatment of venous thrombosis and pulmonary embolism: 2.0 - 3.0For acute myocardial infarction with aspirin therapy: 2.0 - 3.0For acute myocardial infarction without aspirin therapy: 3.0 - 4.0For patients with mechanical prosthetic heart valves: 2.5 - 3.5 12/19/2024 2:04 PM EST 12/19/2024 2:06 PM EST us Generic External Data Provider LAB BLOOD ORDERAB LES Final Result Performing Organization Address City/[facility] Co de Phone Number [facility] [address] [place] [phone] * (ABNORMAL) Partial Thromboplastin Time, Activated (APTT) (10/12/2024 11:52 AM EST) Partial Thromboplastin Time 46.9(H) 26.0 - 36.8 SEC [facility] Comment:For information rega rding the monitoring of direct thrombininhibitors, please refer to Pharmacy. 10/12/2024 11:5 2 AM EST 10/12/2024 11:56 AM EST Generic External Data Provider LAB BLOOD ORDERAB LES Final Result Performing Organization Address [facility] de Phone Number [facility] [address] [place] [phone] * (ABNORMAL) Prothrombin Time-INR (10/12/2024 11:52 AM EST) Prothrombin Time 28.3(H) 10.9 - 12.4 SEC [facility] INTERNATIONAL NORM RATIO 2.4(H) 0.9 - 1.1 [facility] Comment:INTERNATIONAL NORMAL IZED RATIO (INR) [...] ORDERAB LES Final Result Performing Organization Address [facility] Co de Phone Number [facility] [address] [place] [phone] * Magnesium (10/12/2024 11:52 AM EST) Magnesium 2.1 1.6 - 2.6 mg/dL [facility] 10/12/2024 11:5 2 AM EST 10/12/2024 11:56 AM EST us Generic External Data Provider LAB BLOOD ORDERAB LES Final Result [facility] [address] [place] [address] [phone] * (ABNORMAL) Comprehensive Metabolic Panel (10/12/2024 11:52 AM EST) Sodium 140 135 - 145 mmol/L [facility] Potassium 4.1 3.3 - 5.1 mmol/L [facility] Chloride 106 96 - 108 mmol/L [facility] Carbon Dioxide 29 22 - 29 mmol/L [facility] Anion Gap 9(L) 12 - 20 [facility] Urea Nitrogen (BUN) 13 9 - 16 mg/dL [facility] Creatinine, Serum 0.90 0.5 - 1.4 mg/dL [facility] Creatinine Clr Calc Pharmacy 146.8 [facility] Comment:eGFR (calculated fro m the MDRD study equation) and eCrCl(calculated from the Cockcroft-Gault equation) are based ondifferent parameters and may not yield comparable results.If eCrCl result is absurd, please check patient'sheight/weight. Estimated Glomerular Filt Rate >60 [facility] Comment:Chronic Kidney Disea se: Estimated GFR < 60 mL/min/1.04b2Nypqlq Kidney Disease: Estimated GFR < 15 mL/min/1.73m2 Glucose 91 60 - 115 mg/dL [facility] Calcium 9.4 8.4 - 10.2 mg/dL [facility] Bilirubin, Total 0.3 0.0 - 1.0 mg/dL [facility] Aspartate Amino Transferase 62(H) 5 - 37 U/L [facility] Alanine Aminotransferase 99(H) 0 - 40 U/L [facility] Total Protein 8.0 6.5 - 8.0 g/dL [facility] Albumin Level 4.3 3.5 - 5.0 g/dL [facility] Alkaline Phosphatase 136(H) 39 - 117 U/L [facility] 10/12/2024 11:5 2 AM EST 10/12/2024 11:56 AM EST us Generic External Data Provider LAB BLOOD ORDERAB LES Final Result [facility] [address] [place] [address] [phone] * (ABNORMAL) CBC auto differential (10/12/2024 11:37 AM EST) White Blood Count 5.2 4.8 - 10.8 X10*3/uL [facility] Red Blood Count 5.16 4.60 - 5.80 X10*6/uL [facility] Hemoglobin 13.4(L) 14.0 - 18.0 g/dl [facility] Hematocrit 41.8(L) 42.0 - 52.0 % [facility] Mean Corpuscular Volume 81.0 80.0 - 98.0 fL [facility] Mean Corpuscular Hemoglobin 26.0(L) 27.0 - 33.0 pg [facility] Mean Corpuscular HGB Conc 32.1 31.0 - 36.0 g/dl [facility] Red Cell Distribution Width 13.4 11.0 - 16.0 % [facility] Platelet Count 237 160 - 400 X10*3/uL [facility] Mean Platelet Volume 11.0 9.4 - 12.4 fL [facility] Neutrophils Percent Auto 59.1 45 - 73 % [facility] Imm Gran Pct Auto 0.2 0.0 - 0.4 % [facility] Lymphocytes Percent Auto 29.3 20 - 40 % [facility] Monocytes Percent Auto 10.2 2 - 11 % [facility] Eosinophils Percent Auto 0.8 0 - 4 % [facility] Basophils Percent Auto 0.4 0 - 2 % [facility] NRBC Pct Auto 0.0 0.0 - 0.2 /100WBC [facility] Neutrophils Absolute Auto 3.1 2.0 - 8.3 x10*3/uL [facility] Imm Gran Abs Auto 0.01 0.00 - 0.03 X10*3/uL [facility] Lymphocytes Absolute Auto 1.5 1.2 - 4.9 X10*3/uL [facility] Monocytes Absolute Auto 0.5 0.1 - 1.2 X10*3/uL [facility] Eosinophils Absolute Auto 0.0 0.0 - 0.4 X10*3/uL [facility] Basophils Absolute Auto 0.0 0.0 - 0.2 X10*3/uL [facility] NRBC Abs Auto 0.000 0.0 - 0.012 X10*3/uL [facility] 10/12/2024 11:3 7 AM EST 10/12/2024 11:40 AM EST us Generic External Data Provider LAB BLOOD ORDERAB LES Final Result Performing Organization Address City/State/[facility] Co de Phone Number [facility] [address] [place] [phone] * CT Head w/o Contrast (10/12/2024 11:00 AM EST) Anatomical Region Laterality Modality Head, Neck Computed Tomogra phy 10/12/2024 11:0 0 AM EST Narrative 10/12/2024 12:01 PM EST ? [facility] ?[address] ?[place] [address] ? CT Scan Report ? Signed ? Patient: Vaughn,Ludin ?MR#: [id number] ? : 1985 ?Acct:[id number] ? Age/Sex: 39 / M ?ADM Date: 12/06/24 ? Loc: HO.ED ? Attending Dr: ? Ordering Physician: Kindra Jaramillo NP ?? Date of Service: 10/12/24 ?? Procedure(s): CT head/brain wo IV con ?? Accession Number(s): [id number] ? cc: Mariya Juan MD; Kindra Jaramillo [...] ?? effacement, with approximately 3 mm of vnhlt-wh-byse midline shift. ?? Close interval follow-up recommended [...] DD/ 1100 ? TD/TT: 10/12/24 1106 ? [employer] Electrical Engineer: ? Procedure Note Vladislav, Charmaine - 10/12/[address] [place] [address] [address] Scan Report Signed Patient: Ludin MendesMR#: [id number] : 1985Acct:[id number] Age/Sex: 39 / MADM Date: 10/12/24 Loc: HO.ED Attending Dr: Ordering Physician: Kindra Jaramillo NP Date of Service: 10/12/24 Procedure(s): CT head/brain wo IV con Accession Number(s): [id number] cc: Mariya Juan MD; Kindra Jaramillo NP [...] sulcal effacement, with approximately 3 mm of zwaal-qr-cnjo midline shift. Close interval follow-up recommended with CT. 2. No acute territorial infarct or gross parenchymal edema. No intra-axial hemorrhage. 3. No white matter abnormalities. Findings communicated to Emergency Department, Nahomy LOPEZ via phone call 11:51 AM, 10/12/2024 Electronically signed by: Jayson Avendano MD 10/12/2024 11:57 AM [facility] Dictated By: Jayson Avendano MD Signed By: <Electronically signed by Jayson Avendano MD in OV> 10/12/24 1157 DD/ 1100 TD/TT: 10/12/24 1106 [employer] Electrical Engineer: Result [facility] External Provider IMG CT PROCEDURES Edited Result - Final * Hepatitis C Antibody with Reflex to HCV, RNA, Quantitative, Real-Time PCR (09/14/2024 4:32 PM EST) Hepatitis C Antibody Nonreactive Nonreactive [facility] Comment:Antibodies to HCV no t detected; does not exclude early acuteHCV infection. Blood Venous blood specimen / Unknown 09/14/2024 4:32 PM EST 09/14/2024 6:05 PM EST Result [facility] Mariya Cho MD LAB BLOOD ORDERAB LES Final Result [facility] [address] [place] [phone] * HIV-1/2 Antigen and Antibodies, Fourth Generation, with Reflexes (09/14/2024 4:32 PM EST) HIV AB/AG Nonreactive Nonreactive [facility] Comment:HIV-1 p24 Ag and/or HIV-1/HIV-2 Ab not detected.A test result that is nonreactive does not exclude thepossibility of exposure to or infection with HIV-1 and/orHIV-2. Nonreactive results in this assay for individualswith prior exposure to HIV-1 and/or HIV-2 may be due toantigen and antibody levels that are below the limit ofdetection of this assay.The [employer] HIV Ag/Ab Combo assay result andsupplemental assay results should be interpreted inconjunction with the patient's clinical presentation,history and other laboratory results. If the results areinconsistent with clinical evidence, additional testing issuggested to confirm the result. Blood Venous blood specimen / Unknown 09/14/2024 4:32 PM EST 09/14/2024 6:05 PM EST Result [facility] Mariya Cho MD LAB BLOOD ORDERAB LES Final Result Performing Organization Address [facility] Co de Phone Number [facility] [address] [place] [address] [phone] * (ABNORMAL) Lipid Panel, Standard (09/14/2024 4:23 PM EST) Triglycerides 194(H) <150 mg/dL [facility] Comment:Desirable Triglyceri de: less than 150 mg/dLBorderline High Triglyceride 150-199 mg/dLHigh Triglyceride: 200-499 mg/dLVery High Triglyceride: greater than or equal to 5OO mg/dL Cholesterol 131 <200 mg/dL [facility] Comment:Desirable Cholestero l: less than 200 mg/dLBorderline High Cholesterol: 200-239 mg/dLHigh Cholesterol: greater than 239 mg/dL LDL Cholesterol Calculated 62 <100 mg/dL [facility] Comment:Desirable LDL: less than 100 mg/dLNear Optimal/Above Optimal LDL: 110- 129 mg/dLBorderline High LDL: 130-159 mg/dLHigh LDL: 160-189 mg/dLVery High LDL: greater than or equal to 190 mg/dL HDL Cholesterol 31(L) >40 mg/dL [facility] Comment:Desirable HDL: great er than 40 mg/dL Note: This HDL assay may give artificially low results in patients with liver disease. Blood Venous blood specimen / Unknown 09/14/2024 4:23 PM EST 09/14/2024 6:05 PM EST us Mariya Cho MD LAB BLOOD ORDERAB LES Final Result [facility] [address] [place] [address] [phone] from Last 3 Months or Most Recently Relevant to Health Maintenance Insurance [facility] Care Teams Lens Assorter Relationship Specialty Start Date End Date Mariya Juan MD [address] [place] [phone] PCP - General Internal Medicine 04/28/23
--- OUTSIDE RECORDS SUMMARY | 2024-12-19 15:08 | XMS_ITS | Encounter Summary ---
Author Organization [employer] Address [address] [facility] 7t [place] [address] Care Team Providers Care Coining Press Operator Name Role Phone Mariya Juan MD Primary Care Pro vider Encounter Details Date Type Department Care Team (Late st Contact Info) Description 12/19/2024 Orders Only GENERIC EXTERNAL DATA [...] [facility] Routine 12/19/2024 2:04 PM EST documented in this encounter Results * (ABNORMAL) PROTHROMBIN TIME WHOLE BLD POC (12/19/2024 2:04 PM EST) Protime 33.0(H) 11.1 - 13.5 sec [facility] 12/19/2024 2:04 PM EST 12/19/2024 2:06 PM EST us Generic External Data Provider LAB BLOOD ORDERAB LES Final Result [facility] [address] [place] [address] [phone] * (ABNORMAL) ~PT, ~INR - ANTI COAG CLINIC (12/19/2024 2:04 PM EST) Prothrombin Time INR 2.8(H) 0.9 - 1.1 [facility] Comment:METER #: [id number] TERNATIONAL NORMALIZED RATIO (INR) REFERENCE RANGES Reference [...] Provider LAB BLOOD ORDERAB LES Final Result [facility] [address] [place] [phone] documented in this encounter Visit Diagnoses Not on filedocumented in this encounter Additional Health Concerns Assessment Noted Time PHQ-9 Depression Total Score: 12 07/24/ 024 2:22 PM EDT documented as of this encounter Care Teams Coining Press Operator Relationship Specialty Start Date End Date Mariya Juan MD [address] [place] [address] PCP - General Internal Medicine 04/28/23 documented as of this encounter
--- OUTSIDE RECORDS SUMMARY | 2024-12-19 15:08 | XMS_ITS | Encounter Summary ---
Author Organization [employer] Address [address] [facility] 7t [place] [address] Care Team Providers Care Family Educator Name Role Phone Mariya Juan MD Primary Care Pro vider Reason for Visit * Reason Onset Date Comments Med Refill 12/10/2024 Encounter Details Date Type Department Care Team (Late st Contact Info) Description 12/10/2024 Refill [facility] [address] [place] [address] Mariya Juan MD [address] [place] [address] Mild intermittent asthma without complication Social History Tobacco Use Types Packs/Day Years [...] as of this encounter Visit Diagnoses Diagnosis Mild intermittent asthma without complication documented in this encounter Additional Health Concerns Assessment Noted Time PHQ-9 Depression Total Score: 12 024 2:22 PM EDT documented as of this encounter Care Teams Family Educator Relationship Specialty Start Date End Date Mariya Juan MD [address] [place] [phone] PCP - General Internal Medicine 04/28/23 documented as of this encounter
--- OUTSIDE RECORDS SUMMARY | 2024-12-19 15:08 | XMS_ITS | Encounter Summary ---
Author Organization [employer] Address [address] [place] [address] [address] [place] [address] Care Team Providers Care Traveling Auditor Name Role Phone Kay Dennis Sofie ROACH Primary Care Provider [phone]- [phone] Mariya Juan MD Primary Care Pro vider Encounter Details Date Type Department Care Team (Late st Contact Info) Description 12/16/2022 Orders Only [facility] [address] [place] [address] Aida Villegas LPN Social History Tobacco Use [...] EST) Protime 45.7(H) 11.1 - 13.5 sec [facility] 12/16/2022 2:35 PM EST 12/16/2022 2:36 PM EST [facility] External Provider LAB BLO OD ORDERABLES Final Result Performing Organization Address City/[facility] Co de Phone Number [facility] [address] [place] [phone] * (ABNORMAL) ~PT, ~INR - ANTI COAG CLINIC (12/16/2022 2:35 PM EST) Prothrombin Time INR 3.8(H) 0.9 - 1.1 [facility] Comment:METER #: [id number] TERNATIONAL NORMALIZED RATIO (INR) REFERENCE RANGES Reference [...] 2:35 PM EST 12/16/2022 2:36 PM EST [facility] External Provider LAB BLO OD ORDERABLES Final Result Performing Organization Address City/[facility] Co de Phone Number [facility] [address] [place] [phone] documented in this encounter Visit Diagnoses Not on filedocumented in this encounter Care Teams Traveling Auditor Relationship Specialty Start Date End Date Kay Dennis FNP PCP - General Family Medicine 07/05/22 04/27/23 Mariya Juan MD [address] [place] [id number] PCP - General Internal Medicine 04/28/23 documented as of this encounter
== END 2024-12-19 14:13 | disposition home or self-care (01) ==
LOC: HO.ACS 13:44
PROVIDERS: PCP Student in an Organized Health Care Education/Training Program; Visit Provider Internal Medicine
DX: Z79.01 Long term (current) use of anticoagulants (principal)

== ENCOUNTER → 2024-12-19 13:44 | Outpatient (BNVA) | payer OTHER, SELFPAY | PROVIDERS: PCP Student in an Organized Health Care Education/Training Program; Visit Provider Internal Medicine | DX: Z95.2 Presence of prosthetic heart valve (principal); Z79.01 Long term (current) use of anticoagulants; Z51.81 Encounter for therapeutic drug level monitoring | CPT/HCPCS: 85610; 99211 ==

== ENCOUNTER 2025-01-03 14:31 | Emergency (ER) | payer OTHER, SELFPAY ==
--- NOTE | ~2025-01-03 | XR_ITS ---
CLINICAL HISTORY: pain 1 view abdomen Comparison: None Findings: No pneumoperitoneum or pneumatosis. No abnormal calcifications. No acute fractures. IMPRESSION: Normal bowel gas pattern This document has been electronically signed by: Ke Santos MD on 01/03/2025 17:46:49
[2025-01-03 14:35] VITALS: BP 168/80; PULSE 87; O2SAT 99
[2025-01-03 14:43] VITALS: BP 154/85; PULSE 84; RESP 18; TEMP 37.1; O2SAT 99; BMI 31.9
--- NOTE | 2025-01-03 14:48 | ECG_ITS ---
Test Reason : ADB PAIN Blood Pressure : */* mmHG Vent. Rate : 75 BPM Atrial Rate : 75 BPM P-R Int : 194 ms QRS Dur : 92 ms QT Int : 382 ms P-R-T Axes : 9 66 6 degrees QTcB Int : 426 ms Normal sinus rhythm Normal ECG When compared with ECG of 17-Jul-2023 21:53, Incomplete right bundle branch block is no longer Present T wave amplitude has decreased in Anterior leads Referred By: Moses Vogel Electronically Signed By: Dell Samuels
--- NOTE | 2025-01-03 15:33 | ED_ITS ---
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 Pain is generalized, unable to describe the nature of his discomfort. Denies nausea vomiting diarrhea, the patient states he struggles with constipation, has not had a bowel movement in a few days. Denies distention, fever or inability to pass flatus. Related Data Home Medications ?Medication ?Instructions ?Recorded ?Confirmed acetaminophen 650 mg 1,300 mg PO Q8H PRN Pain 09/24/22 01/11/25 tablet,extended release (Tylenol Arthritis Pain) albuterol sulfate 90 mcg/actuation 2 puff inhalation Q4-6H PRN 09/24/22 01/11/25 aerosol inhaler (ProAir HFA) Wheezing buprenorphine 8 mg-naloxone 2 mg 1 film sublingual BID 09/24/22 01/11/25 sublingual film (Suboxone) loratadine 10 mg tablet 10 mg PO DAILY 09/24/22 01/11/25 inhalational spacing device #1 ea 09/29/22 01/11/25 (Raghav Ashraf [facility] spacer) polyethylene glycol 3350 17 17 g PO DAILY 04/08/23 01/11/25 gram/dose oral powder (Miralax) warfarin 5 mg tablet 10 mg PO 5XW 04/21/23 01/11/25 warfarin 7.5 mg tablet 7.5 mg PO 2XW 04/21/23 01/11/25 atorvastatin 20 mg tablet 20 mg PO DAILY 06/08/23 01/11/25 hydroxyzine pamoate 25 mg capsule 25 mg PO TID 10/21/23 01/11/25 blood pressure test kit-large #1 ea 12/16/23 01/11/25 fluticasone propionate 50 spray intranasal 02/02/24 01/11/25 mcg/actuation nasal spray,suspension coenzyme Q10 [Co Q-10] PO 09/13/24 01/11/25 melatonin 5 mg tablet 5 mg PO BEDTIME 09/13/24 01/11/25 sodium chloride 0.65 % nasal spray spray intranasal 09/20/24 01/11/25 aerosol (Deep Sea Nasal) celecoxib 100 mg capsule (Celebrex) 200 mg PO DAILY PRN 11/09/24 01/11/25 Previous Rx's ?Medication ?Instructions ?Recorded acetaminophen 325 mg capsule 325 mg PO QID PRN pain 7 days #28 08/15/23 caps ondansetron 4 mg disintegrating 4 mg PO Q8H PRN nausea and 12/25/23 tablet vomiting 4 days #7 tabs omeprazole 20 mg capsule,delayed 20 mg PO DAILY #30 caps 10/16/24 release ondansetron HCl 4 mg tablet 4 mg PO Q8H PRN nausea and 01/03/25 vomiting #10 tabs Allergies Allergy/AdvReac Type Severity Reaction Status Date / Time hydrocodone [From VICODIN] Allergy Unknown GI UPSET Verified 01/11/25 13:30 Review of Systems 2 Review of Systems: Yes all other systems are reviewed and are negative Constitutional: Constitutional: Denies fatigue and Denies fever(s) Cardiovascular: Cardiovascular: Denies chest pain and Denies dyspnea Respiratory: Respiratory: Denies cough and Denies dyspnea Gastrointestinal: Gastrointestinal: Reports abdominal pain, Reports constipation, Denies diarrhea, Denies nausea and Denies vomiting Endocrine: Endocrine: Denies fatigue PMF Past Medical History Attestation statement: The following information was validated with the patient. Medical History (Updated 01/04/25 @ 00:00 by Huang Daada) Current use of anticoagulant therapy Anticoagulant causing adverse effect in therapeutic use CVA (cerebrovascular accident due to intracerebral hemorrhage) Endocarditis of prosthetic mitral valve SIRS (systemic inflammatory response syndrome) Myalgia Opioid use disorder Fracture of proximal end of humerus Asthma Surgical History History of heart valve replacement with mechanical valve Heart valve replaced Presence of other heart-valve replacement Family History Family History Father Diabetes Mother H/O thyroid disease Social History Social History Household Members: Family Household Members Other:: 3 kids Housing: Apartment Do you presently have visiting nurse or other home services: No Alcohol intake: never Patient Tobacco Use Status: Former Tobacco user Tobacco use type: Cigarette Substance Use Type: Former Substance User and Other service: No Current occupational status: unemployed and disabled 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- Physical Exam ED Vital Signs: Vital Signs - 24 hr 01/03/25 14:43 01/03/25 17:11 01/03/25 19:16 Temperature 98.8 F 98.8 F Pulse Rate 84 71 71 Respiratory Rate 18 16 16 Blood Pressure 154/85 H 115/58 L 115/58 L Pulse Oximetry 99 95 95 Oxygen Delivery Method Room Air Room Air Room Air 01/03/25 19:35 Temperature 98.0 F Pulse Rate 82 Respiratory Rate 20 Blood Pressure 140/88 H Pulse Oximetry 100 Oxygen Delivery Method Room Air BMI result Body Mass Index 31.9 Const Other: Alert Orientation/consciousness: patient oriented x3 Resp Effort & Inspection: normal respiratory effort Cardio Other: Normal peripheral perfusion GI Other: Abdomen is soft, nontender nondistended no guarding Skin Other: Warm dry no rash Neuro General: patient oriented x3, gait normal, no focal motor deficits and CN's II- XI intact bilaterally Psych Other: Cooperative Course Course Course Narrative: RME: 39 yold male with pmh of endocaritits presents to the Ed for abdominal pain, generalized weakness, and chills. Patient states the symptoms he is having is similar to when he had endocarditis. Patient has endocarditis twice with similar symptoms. EKG troponin labs ordered. We will try to get patient's bed inside. Medications Administered Discontinued Medications Generic Name Dose Route Start Last Admin Trade Name Freq PRN Reason Stop Dose Admin Acetaminophen 975 mg 01/03/25 15:28 01/03/25 15:50 Acetaminophen 325 Mg Tablet PO 01/03/25 15:29 975 mg ONCE ONE Administration Ondansetron HCl 8 mg 01/03/25 17:16 01/03/25 17:39 Ondansetron Odt 8 Mg Tab.Rapdis TRANSLINGU 01/03/25 17:17 8 mg ONCE ONE Administration Sucralfate 1 gm 01/03/25 17:16 01/03/25 17:39 Sucralfate Oral Suspension 1 Gm/10 Ml Oral.Susp PO 01/03/25 17:17 1 gm ONCE ONE Administration Medical Decision Making Medical Decision Making MDM Narrative: 39-year-old male with a 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 Pain is generalized, unable to describe the nature of his discomfort. Denies nausea vomiting diarrhea, the patient states he struggles with constipation, has not had a bowel movement in a few days. Denies distention, fever or inability to pass flatus. Problem: Prior endocarditis, chronic constipation, on Suboxone History: Per patient I have considered the following differential diagnoses: Fecal impaction, constipation, bowel obstruction Plan: Screening labs were unremarkable, I obtained a KUB, he does have significant stool burden with a normal bowel gas pattern, not suggestive of obstruction. Furthermore, he has no obstructive symptoms. We will send with home care instructions. I have independently reviewed the following tests: Labs: No leukocytosis, not anemic, no electrolyte abnormality, troponin negative viral panel pending EKG: Normal sinus rhythm, rate of 75, no ischemic changes no ectopy QTC 426 KUB: indings: No pneumoperitoneum or pneumatosis. No abnormal calcifications. No acute fractures. IMPRESSION: Normal bowel gas pattern This document has been electronically signed by: Ke Santos MD on 01/03/2025 17:46:49 Lab Data 01/03/25 15:27 01/03/25 15:27 Labs: Lab Results 01/03/25 01/03/25 Range/Units 15:27 17:16 WBC 5.1 (4.8-10.8) X10*3/uL RBC 5.15 (4.60-5.80) X10*6/uL Hgb 13.6 L (14.0-18.0) g/dl Hct 41.4 L (42.0-52.0) % MCV 80.4 (80.0-98.0) fL MCH 26.4 L (27.0-33.0) pg MCHC 32.9 (31.0-36.0) g/dl RDW 13.8 (11.0-16.0) % Plt Count 230 (160-400) X10*3/uL MPV 10.9 (9.4-12.4) fL Immature Gran % (Auto) 0.2 (0.0-0.4) % Neut % (Auto) 64.4 (45-73) % Lymph % (Auto) 24.0 (20-40) % Gladwin % (Auto) 10.2 (2-11) % Eos % (Auto) 0.8 (0-4) % Baso % (Auto) 0.4 (0-2) % Lymph # (Auto) 1.2 (1.2-4.9) X10*3/uL Gladwin # (Auto) 0.5 (0.1-1.2) X10*3/uL Eos # (Auto) 0.0 (0.0-0.4) X10*3/uL Baso # (Auto) 0.0 (0.0-0.2) X10*3/uL Abs Immat Gran (auto) 0.01 (0.00-0.03) X10*3/uL Absolute Neuts (auto) 3.3 (2.0-8.3) x10*3/uL Absolute Nucleated RBC 0.000 (0.0-0.012) X10*3/uL Nucleated RBC % (auto) 0.0 (0.0-0.2) /100WBC ESR 2 (0-15) MM/HR PT 12.4 D (10.9-12.4) SEC INR 1.1 (0.9-1.1) APTT 32.6 D (26.0-36.8) SEC Sodium 141 (135-145) mmol/L Potassium 3.8 (3.3-5.1) mmol/L Chloride 108 (96-108) mmol/L Carbon Dioxide 27 (22-29) mmol/L Anion Gap 10 L (12-20) BUN 14 (9-16) mg/dL Creatinine 0.78 (0.5-1.4) mg/dL Estim Creat Clear Calc 174.3 Estimated GFR > 60 Random Glucose 93 (60-115) mg/dL Lactic Acid 1.3 (0.5-2.0) mmol/L Calcium 9.0 (8.4-10.2) mg/dL Total Bilirubin 0.4 (0.0-1.0) mg/dL AST 36 (5-37) U/L ALT 38 (0-40) U/L Alkaline Phosphatase 122 H (39-117) U/L Troponin I High Sens < 2.7 (<3.5-35.0) ng/L C-Reactive Protein 0.36 (< or = 0.50) mg/dL Total Protein 8.1 H (6.5-8.0) g/dL Albumin 4.3 (3.5-5.0) g/dL Influenza Type A (PCR) NEGATIVE (Negative) Influenza Type B (PCR) NEGATIVE (Negative) RSV RNA Qual (PCR) NEGATIVE (Negative) SARS-CoV-2 RNA (RT-PCR) NEGATIVE (Negative) Discharge Plan Discharge Clinical Impression: Constipation Patient Disposition: Home, Self-Care Instructions: Constipation (ED) Additional Instructions: All of your screening labs were normal, there were no concerning changes on your EKG and your cardiac enzyme was negative. The viral panel was negative. The x- ray revealed that you are constipated. See home care instructions. You need to stay on a bowel regimen to help prevent constipation. Use [id number] Colace, this is a stool softener twice a day. Use [id number]-ppuxoux MiraLax, two to 3 times a day, indefinitely, until your bowel habits regulate. You may be able to use it 1 to 2 times a day once you self regulate. Follow up with your primary care provider as needed. Use Zofran as needed for nausea. Prescriptions: New ondansetron HCl 4 mg tablet 4 mg PO Q8H PRN (Reason: nausea and vomiting) Qty: 10 0RF No Action warfarin 5 mg tablet 10 mg PO 5XW Protocol: Dose Management Condition: Tuesday (Week One) Dose/Route: 3.75 mg Instruction: 0.5 x 7.5 mg tablets Condition: Tuesday Dose/Route: 12.5 mg Instruction: 1 x 5 mg tablet, 1 x 7.5 mg tablet Condition: Tuesday Dose/Route: 12.5 mg Instruction: 1 x 5 mg tablet, 1 x 7.5 mg tablet Condition: Tuesday Dose/Route: 7.5 mg Instruction: 1 x 7.5 mg tablet Condition: Dose/Route: 7.5 mg Instruction: 1 x 7.5 mg tablet Condition: Tuesday Dose/Route: 7.5 mg Instruction: 1 x 7.5 mg tablet Condition: Tuesday Dose/Route: 7.5 mg Instruction: 1 x 7.5 mg tablet Condition: Tuesday (Week Two) Dose/Route: 3.75 mg Instruction: 0.5 x 7.5 mg tablets Condition: Tuesday Dose/Route: 7.5 mg Instruction: 1 x 7.5 mg tablet Condition: Tuesday Dose/Route: 7.5 mg Instruction: 1 x 7.5 mg tablet Condition: Tuesday Dose/Route: 7.5 mg Instruction: 1 x 7.5 mg tablet Condition: Dose/Route: 7.5 mg Instruction: 1 x 7.5 mg tablet Condition: Tuesday Dose/Route: 7.5 mg Instruction: 1 x 7.5 mg tablet Condition: Tuesday Dose/Route: 7.5 mg Instruction: 1 x 7.5 mg tablet Protocol Text: Adjustment Start Date: Tuesday01/11/25 INR Value: 3.0 INR Date: 01/11/25 Recheck Date: 01/21/25 Additional Instructions: INR is now in range no more lovenox no heavy duty greens today or tomorrow then balance and be consistent warfarin 7.5 mg tablet 7.5 mg PO 2XW Protocol: Dose Management Condition: Tuesday (Week One) Dose/Route: 3.75 mg Instruction: 0.5 x 7.5 mg tablets Condition: Tuesday Dose/Route: 12.5 mg Instruction: 1 x 5 mg tablet, 1 x 7.5 mg tablet Condition: Tuesday Dose/Route: 12.5 mg Instruction: 1 x 5 mg tablet, 1 x 7.5 mg tablet Condition: Tuesday Dose/Route: 7.5 mg Instruction: 1 x 7.5 mg tablet Condition: Dose/Route: 7.5 mg Instruction: 1 x 7.5 mg tablet Condition: Tuesday Dose/Route: 7.5 mg Instruction: 1 x 7.5 mg tablet Condition: Tuesday Dose/Route: 7.5 mg Instruction: 1 x 7.5 mg tablet Condition: Tuesday (Week Two) Dose/Route: 3.75 mg Instruction: 0.5 x 7.5 mg tablets Condition: Tuesday Dose/Route: 7.5 mg Instruction: 1 x 7.5 mg tablet Condition: Tuesday Dose/Route: 7.5 mg Instruction: 1 x 7.5 mg tablet Condition: Tuesday Dose/Route: 7.5 mg Instruction: 1 x 7.5 mg tablet Condition: Dose/Route: 7.5 mg Instruction: 1 x 7.5 mg tablet Condition: Tuesday Dose/Route: 7.5 mg Instruction: 1 x 7.5 mg tablet Condition: Tuesday Dose/Route: 7.5 mg Instruction: 1 x 7.5 mg tablet Protocol Text: Adjustment Start Date: Tuesday01/11/25 INR Value: 3.0 INR Date: 01/11/25 Recheck Date: 01/21/25 Additional Instructions: INR is now in range no more lovenox no heavy duty greens today or tomorrow then balance and be consistent omeprazole 20 mg capsule,delayed release(DR/EC) 20 mg PO DAILY Qty: 30 5RF ondansetron 4 mg tablet,disintegrating 4 mg PO Q8H PRN (Reason: nausea and vomiting) 4 Days Qty: 7 0RF acetaminophen 325 mg capsule 325 mg PO QID PRN (Reason: pain) 7 Days Qty: 28 0RF loratadine 10 mg tablet 10 mg PO DAILY albuterol sulfate [ProAir HFA] 90 mcg/actuation HFA aerosol inhaler 2 puff inhalation Q4-6H PRN (Reason: Wheezing) buprenorphine-naloxone [Suboxone] 8-2 mg film 1 film sublingual BID acetaminophen [Tylenol Arthritis Pain] 650 mg tablet extended release 1,300 mg PO Q8H PRN (Reason: Pain) (DME) [facility] Ashraf [facility] Spacer See Rx Instructions .ROUTE .MEDSUPPLY Qty: 1 Rx Instructions: As directed polyethylene glycol 3350 [Miralax] 17 gram/dose powder 17 g PO DAILY atorvastatin 20 mg tablet 20 mg PO DAILY hydroxyzine pamoate 25 mg capsule 25 mg PO TID Deep Sea Nasal 0.65 % aerosol,spray intranasal celecoxib [Celebrex] 100 mg capsule 200 mg PO DAILY PRN (DME) blood pressure test kit-large Kit See Rx Instructions .ROUTE BID Qty: 1 Rx Instructions: As directed fluticasone propionate 50 mcg/actuation spray,suspension intranasal melatonin 5 mg tablet 5 mg PO BEDTIME coenzyme Q10 [Co Q-10] PO Interventions: ED Discharge Assessment Last Done: 01/03/25 19:16 Discharge Date/Time: 01/03/25 20:01 Print Language: Japanese
[2025-01-03 15:36] LABS: MANUAL DIFF FLAG NO
[2025-01-03 15:38] LABS: Basophils Percent Auto 0.4 % (0-2); Eosinophils Percent Auto 0.8 % (0-4); Hematocrit 41.4 % (42.0-52.0); Hemoglobin 13.6 g/dl (14.0-18.0); Imm Gran Abs Auto 0.01 X10*3/uL (0.00-0.03); Imm Gran Pct Auto 0.2 % (0.0-0.4); Lymphocytes Absolute Auto 1.2 X10*3/uL (1.2-4.9); Mean Corpuscular HGB Conc 32.9 g/dl (31.0-36.0); Mean Corpuscular Hemoglobin 26.4 pg (27.0-33.0); Mean Corpuscular Volume 80.4 fL (80.0-98.0); Mean Platelet Volume 10.9 fL (9.4-12.4); Monocytes Absolute Auto 0.5 X10*3/uL (0.1-1.2); Monocytes Percent Auto 10.2 % (2-11); Neutrophils Absolute Auto 3.3 x10*3/uL (2.0-8.3); Neutrophils Percent Auto 64.4 % (45-73); Platelet Count 230 X10*3/uL (160-400); Red Blood Count 5.15 X10*6/uL (4.60-5.80); Red Cell Distribution Width 13.8 % (11.0-16.0); White Blood Count 5.1 X10*3/uL (4.8-10.8)
[2025-01-03 15:49] LABS: INTERNATIONAL NORM RATIO 1.1 (0.9-1.1); Prothrombin Time 12.4 SEC (10.9-12.4)
[2025-01-03] MEDS: Acetaminophen 325 MG TABLET 975 MG PO (15:50)
[2025-01-03 15:51] LABS: Partial Thromboplastin Time 32.6 SEC (26.0-36.8)
[2025-01-03 15:55] LABS: Lactic Acid 1.3 mmol/L (0.5-2.0)
[2025-01-03 16:02] LABS: Alanine Aminotransferase 38 U/L (0-40); Albumin Level 4.3 g/dL (3.5-5.0); Anion Gap 10 (12-20); Aspartate Amino Transferase 36 U/L (5-37); Bilirubin Total 0.4 mg/dL (0.0-1.0); Blood Urea Nitrogen 14 mg/dL (9-16); C Reactive Protein 0.36 mg/dL (< or = 0.50); Carbon Dioxide 27 mmol/L (22-29); Chloride 108 mmol/L (96-108); Creatinine Clr Calc Pharmacy 174.3; Estimated Glomerular Filt Rate > 60; Glucose Random 93 mg/dL (60-115); Potassium 3.8 mmol/L (3.3-5.1); Sodium 141 mmol/L (135-145); Total Protein 8.1 g/dL (6.5-8.0)
[2025-01-03 16:03] LABS: Troponin-I High Sensitivity < 2.7 ng/L (<3.5-35.0)
[2025-01-03 16:15] LABS: Erythrocyte Sedimentation Rate 2 MM/HR (0-15)
[2025-01-03 16:26] LABS: Alkaline Phosphatase 122 U/L (39-117)
[2025-01-03 17:11] VITALS: BP 115/58; PULSE 71; RESP 16; O2SAT 95
[2025-01-03] MEDS: Sucralfate Oral Suspension 1 GM/10 ML ORAL.SUSP PO (17:39)
[2025-01-03] MEDS: Ondansetron ODT 8 MG TAB.RAPDIS TRANSLINGU (17:39)
[2025-01-03 18:04] LABS: Influenza A PCR NEGATIVE (Negative); Influenza B PCR NEGATIVE (Negative); Resp Syncy Virus RNA Qual PCR NEGATIVE (Negative); SARS COV2 PCR INHOUSE NEGATIVE (Negative)
[2025-01-03 19:16] VITALS: BP 115/58; PULSE 71; RESP 16; TEMP 37.1; O2SAT 95
[2025-01-03 19:35] VITALS: BP 140/88; PULSE 82; RESP 20; TEMP 36.7; O2SAT 100
--- OUTSIDE RECORDS SUMMARY | 2025-01-03 19:37 | XMS_ITS | Encounter Summary ---
Author Organization [employer] Address [address] [facility] [address] [place] [address] Care Team Providers Care Director Of Business Systems Name Role Phone Mariya Juan MD Primary Care Pro vider Reason for Visit * Reason Onset Date Comments Med Refill 12/10/2024 Encounter Details Date Type Department Care Team (Late st Contact Info) Description 12/10/2024 Refill [facility] [address] [place] [address] Mariay Juan MD [address] [place] [address] Mild intermittent asthma without complication Social History [...] documented as of this encounter Care Teams Director Of Business Systems Relationship Specialty Start Date End Date Mariya Juan MD [address] [place] [id number] PCP - General Internal Medicine 04/28/23 documented as of this encounter
--- OUTSIDE RECORDS SUMMARY | 2025-01-03 19:37 | XMS_ITS | Clinical Summary ---
Author Organization [employer] Address [address] [place] [address] 7[address] [place] [address] Care Team Providers Care Legal Office Administrator Name Role Phone Mariya Juan MD Primary [...] and replace cap. 16 g 12 024 Active warfarin (Coumadin) 5 MG tabletIndications :Mechanical [...] 14 mL 2 024 Active sodium chloride ([place]) 0.65 % nasal spray Administer 1 spray into each nostril if needed for congestion. 15 mL 2 024 2024 Active atorvastatin (Lipitor) 20 MG tabletIndications :Mixed [...] of breath. 18 g 3 025 Active warfarin (Coumadin) 7.5 MG tabletIndications :Mechanical heart valve present TAKE 1 TABLET BY MOUTH ON 6 DAYS A WEEK. TAKE 5MG ON 1 DAY OF THE WEEK. 60 tablet 2 025 Active albuterol 108 (90 Base) MCG/ACT inhalerIndication s:Mild intermittent asthma without complication Inhale 2 puffs every 4 (four) hours if needed for wheezing or shortness of breath. 18 g 3 023 2024 Discontinued(R eorder (will not trigger notification to Pharmacy)) Blood Pressure kit 1 each 2 times daily. 1 kit 024 2024 warfarin (Coumadin) 7.5 MG tabletIndications :Mechanical heart valve present TAKE 1 TABLET BY MOUTH EVERY 6 DAYS A WEEK. TAKE 5MG ON 1 DAY OF THE WEEK. 60 tablet 024 2024 Discontinued Active Problems Problem Noted Date Diagnosed Date Obesity 07/24/2024 Onychomycosis 07/24/2024 Movement disorder 07/24/2024 Attention deficit hyperactiv ity disorder (ADHD), predominantly hyperactive type 07/24/2024 Loud snoring 07/24/2024 Amygdalolith 04/11/2024 Right arm weakness 04/28/2023 Overview (04/28/2023): Was seen at [facility] on 08/17/22 with noted nausea, diaphoresis in exam room, discomfort, profound fatigue, referred to [facility] now. Went to [facility] on 08/18/22 and was admitted for infection and started antibiotics. Blood cultures on 08/18/22 and 08/20/22 grew MSSA. 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 Plan was to transfer [facility]. Transferred to [facility] on 08/21/22 for further management of infective [...] bleed improving Has PT in home through [facility]. 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 Went to [facility] on 08/18/22 and was admitted for infection and started antibiotics. Blood cultures on 08/18/22 and 08/20/22 grew MSSA. 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 Plan was to transfer [facility]. Transferred to [facility] on 08/21/22 for further management of infective [...] endocarditis 11/03/2022 Overview (04/28/2023): Was seen at [facility] on 08/17/22 with noted nausea, diaphoresis in exam room, discomfort, profound fatigue, referred to [facility] now. Went to [facility] on 08/18/22 and was admitted for infection and started antibiotics. Blood cultures on 08/18/22 and 08/20/22 grew MSSA. 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 Plan was to transfer [facility]. Transferred to [facility] on 08/21/22 for further management of infective [...] Encounters Date Type Department Care Team Description 12/23/2024 Refill [facility] MEDICINE [address] [place] [address] Mariya Juan MD Mechanical heart valve present 12/19/2024 Orders Only GENERIC EXTERNAL DATA DEPARTMENT Provider, Generic External Data 12/10/2024 Refill [facility] MED & PEDS [address] [place] [address] Mariya Juan MD Mild intermittent asthma without complication 12/07/2024 Orders Only GENERIC EXTERNAL DATA DEPARTMENT Provider, Generic External Data 11/30/2024 Telephone [facility] MEDICINE [address] [place] [phone] Mariya Juan MD Medication Question 11/30/2024 Telephone [facility] MED & PEDS [address] [place] [address] Lyndsay Badillo NE Samira Recall 11/23/2024 Orders Only GENERIC EXTERNAL DATA DEPARTMENT Provider, Generic External Data 11/21/2024 Refill [facility] MEDICINE [address] [place] [address] Mariya Juan MD Constipation, unspecified constipation type 11/19/2024 Orders Only GENERIC EXTERNAL DATA DEPARTMENT Provider, Generic External Data 11/09/2024 Orders Only GENERIC EXTERNAL DATA DEPARTMENT Provider, Generic External Data 11/01/2024 Orders Only GENERIC EXTERNAL DATA DEPARTMENT Provider, Generic External Data 10/26/2024 Telephone [facility] MEDICINE [address] [place] [address] Mariya Juan MD 10/26/2024 Orders Only GENERIC EXTERNAL DATA DEPARTMENT Provider, Generic External Data 10/25/2024 Telephone [facility] MEDICINE [address] [place] [address] Mariya Juan MD Chart Prep 10/23/2024 Refill [facility] MEDICINE [address] [place] [address] Mariya Juan MD Anxiety state 10/15/2024 Telephone [facility] MEDICINE [address] [place] [address] [phone] Sheree Davidson RN Hospital Follow-up 10/12/2024 Orders Only GENERIC EXTERNAL DATA DEPARTMENT Provider, Generic External Data from Last 3 Months Immunizations Name Administration Dates Next Due DTaP 07/18/1989, 7,12/20/1986,11/19 Hep B, Adolescent or Pediatric 12/10/1998,1997,1998 Hib ([facility]) 10/20/1987 Influenza injectable quadriv alent IIV4 with [...] CONTRAST Routine 10/12/2024 1 1:00 AM EST HEPATITIS C AB W/REFL TO HCV [...] 2:04 PM EST) Only the most recent of7 resultswithin the time period is included. Protime 33.0(H) 11.1 - 13.5 sec [facility] 12/19/2024 2:04 PM EST 12/19/2024 2:06 PM EST us Generic External Data Provider LAB BLOOD ORDERAB LES Final Result [facility] [address] [place] [phone] * (ABNORMAL) ~PT, ~INR - ANTI COAG CLINIC (12/19/2024 2:04 PM EST) Only the most recent of7 resultswithin the time period is included. Prothrombin Time INR 2.8(H) 0.9 - 1.1 [facility] Comment:METER #: [id number] TERNATIONAL NORMALIZED RATIO (INR) REFERENCE RANGES Reference [...] ORDERAB LES Final Result Performing Organization Address City/[facility]/ZIP Co de Phone Number [facility] [address] [place] [phone] * (ABNORMAL) Partial Thromboplastin Time, Activated (APTT) (10/12/2024 11:52 AM EST) Partial Thromboplastin Time 46.9(H) 26.0 - 36.8 SEC [facility] Comment:For information rega rding the monitoring of direct thrombininhibitors, please refer to Pharmacy. 10/12/2024 11:5 2 AM EST 10/12/2024 11:56 AM EST us Generic External Data Provider LAB BLOOD ORDERAB LES Final Result Performing Organization Address City/[facility]/ZIP Co de Phone Number [facility] [address] [place] [phone] * (ABNORMAL) Prothrombin Time-INR (10/12/2024 11:52 AM EST) [facility] Prothrombin Time 28.3(H) 10.9 - 12.4 SEC [facility] INTERNATIONAL NORM RATIO 2.4(H) 0.9 - 1.1 [facility] Comment:INTERNATIONAL NORMAL IZED RATIO (INR) [...] ORDERAB LES Final Result Performing Organization Address [facility] de Phone Number [facility] [address] [place] [phone] * Magnesium (10/12/2024 11:52 AM EST) [facility] Magnesium 2.1 1.6 - 2.6 mg/dL [facility] 10/12/2024 11:5 2 AM EST 10/12/2024 11:56 AM EST Context [employer] External Data Provider LAB BLOOD ORDERAB LES Final Result Performing Organization Address [facility] de Phone Number [facility] [address] [place] [phone] * (ABNORMAL) Comprehensive Metabolic Panel (10/12/2024 11:52 AM EST) [facility] Sodium 140 135 - 145 mmol/L [facility] Potassium 4.1 3.3 - 5.1 mmol/L [facility] Chloride 106 96 - 108 mmol/L [facility] Carbon Dioxide 29 22 - 29 mmol/L [facility] Anion Gap 9(L) 12 - 20 [facility] Urea Nitrogen (BUN) 13 9 - 16 mg/dL [facility] Creatinine, Serum 0.90 0.5 - 1.4 mg/dL [facility] Creatinine Clr Calc Pharmacy 146.8 [facility] Comment:eGFR (calculated fro m the MDRD study equation) and eCrCl(calculated from the Cockcroft-Gault equation) are based ondifferent parameters and may not yield comparable results.If eCrCl result is absurd, please check patient'sheight/weight. Estimated Glomerular Filt Rate >60 [facility] Comment:Chronic Kidney Disea se: Estimated GFR < 60 mL/min/1.92e9Wtyaxx Kidney Disease: Estimated GFR < 15 mL/min/1.73m2 Glucose 91 60 - 115 mg/dL [facility] Calcium 9.4 8.4 - 10.2 mg/dL [facility] Bilirubin, Total 0.3 0.0 - 1.0 mg/dL [facility] Aspartate Amino Transferase 62(H) 5 - 37 U/L [facility] Alanine Aminotransferase 99(H) 0 - 40 U/L [facility] Total Protein 8.0 6.5 - 8.0 g/dL [facility] Albumin Level 4.3 3.5 - 5.0 g/dL [facility] Alkaline Phosphatase 136(H) 39 - 117 U/L [facility] 10/12/2024 11:5 2 AM EST 10/12/2024 11:56 AM EST us Generic External Data Provider LAB BLOOD ORDERAB LES Final Result [facility] [address] [place] [phone] * (ABNORMAL) CBC auto differential (10/12/2024 11:37 AM EST) White Blood Count 5.2 4.8 - 10.8 X10*3/uL [facility] Red Blood Count 5.16 4.60 - 5.80 X10*6/uL [facility] Hemoglobin 13.4(L) 14.0 - 18.0 g/dl [facility] Hematocrit 41.8(L) 42.0 - 52.0 % [facility] Mean Corpuscular Volume 81.0 80.0 - 98.0 fL [facility] Mean Corpuscular Hemoglobin 26.0(L) 27.0 - 33.0 pg [facility] Mean Corpuscular HGB Conc 32.1 31.0 - 36.0 g/dl [facility] Red Cell Distribution Width 13.4 11.0 - 16.0 % [facility] Platelet Count 237 160 - 400 X10*3/uL [facility] Mean Platelet Volume 11.0 9.4 - 12.4 fL [facility] Neutrophils Percent Auto 59.1 45 - 73 % [facility] Imm Gran Pct Auto 0.2 0.0 - 0.4 % [facility] Lymphocytes Percent Auto 29.3 20 - 40 % [facility] Monocytes Percent Auto 10.2 2 - 11 % [facility] Eosinophils Percent Auto 0.8 0 - 4 % [facility] Basophils Percent Auto 0.4 0 - 2 % [facility] NRBC Pct Auto 0.0 0.0 - 0.2 /100WBC [facility] Neutrophils Absolute Auto 3.1 2.0 - 8.3 x10*3/uL [facility] Imm Gran Abs Auto 0.01 0.00 - 0.03 X10*3/uL [facility] Lymphocytes Absolute Auto 1.5 1.2 - 4.9 X10*3/uL [facility] Monocytes Absolute Auto 0.5 0.1 - 1.2 X10*3/uL [facility] Eosinophils Absolute Auto 0.0 0.0 - 0.4 X10*3/uL [facility] Basophils Absolute Auto 0.0 0.0 - 0.2 X10*3/uL [facility] NRBC Abs Auto 0.000 0.0 - 0.012 X10*3/uL [facility] 10/12/2024 11:3 7 AM EST 10/12/2024 11:40 AM EST us Generic External Data Provider LAB BLOOD ORDERAB LES Final Result [facility] [address] [facility] [place] [phone] * CT Head w/o Contrast (10/12/2024 11:00 AM EST) Anatomical Region Laterality Modality Head, Neck Computed Tomogra phy 10/12/2024 11:0 0 AM EST Narrative 10/12/2024 12:01 PM EST ? [facility] ?[address] ?[place] [address] ? CT Scan Report ? Signed ? Patient: Vaughn,Ludin ?MR#: [id number] ? : 1985 ?Acct:[id number] ? Age/Sex: 39 / M ?ADM Date: 10/12/24 ? Loc: HO.ED ? Attending Dr: ? Ordering Physician: Kindra Jaramillo NP ?? Date of Service: 10/12/24 ?? Procedure(s): CT head/brain wo IV con ?? Accession Number(s): [id number] ? cc: Mariya Juan MD; Kindra Jaramillo [...] ?? effacement, with approximately 3 mm of efjon-iu-aein midline shift. ?? Close interval follow-up recommended [...] DD/ 1100 ? TD/TT: 10/12/24 1106 ? Out Patient Therapist: ? Procedure Note Donotuseinterpreter, Image - 10/12/[address] [address] [address] Scan Report Signed Patient: Ludin MendesMR#: [id number] : 1985Acct:[id number] Age/Sex: 39 / MADM Date: 10/12/24 Loc: HO.ED Attending Dr: Ordering Physician: Kindra Jaramillo NP Date of Service: 10/12/24 Procedure(s): CT head/brain wo IV con Accession Number(s): [id number] cc: Mariya Juan MD; Kindra Jaramillo NP [...] sulcal effacement, with approximately 3 mm of qqvyc-ok-thor midline shift. Close interval follow-up recommended with [...] 10/12/24 1157 DD/ 1100 TD/TT: 10/12/24 1106 Out Patient Therapist: [facility] External Provider IMG CT PROCEDURES Edited Result - Final * Hepatitis C Antibody with Reflex to HCV, RNA, Quantitative, Real-Time PCR (09/14/2024 4:32 PM EST) Hepatitis C Antibody Nonreactive Nonreactive [facility] Comment:Antibodies to HCV no t detected; does not exclude early acuteHCV infection. Blood Venous blood specimen / Unknown 09/14/2024 4:32 PM EST 09/14/2024 6:05 PM EST Mariya Cho MD LAB BLOOD ORDERAB LES Final Result [facility] [address] [place] [phone] * HIV-1/2 Antigen and Antibodies, Fourth Generation, with Reflexes (09/14/2024 4:32 PM EST) HIV AB/AG Nonreactive Nonreactive [facility] Comment:HIV-1 p24 Ag and/or HIV-1/HIV-2 Ab not detected.A test result that is nonreactive does not exclude thepossibility of exposure to or infection with HIV-1 and/orHIV-2. Nonreactive results in this assay for individualswith prior exposure to HIV-1 and/or HIV-2 may be due toantigen and antibody levels that are below the limit ofdetection of this assay.The [employer] HIV Ag/Ab Combo assay result andsupplemental assay results should be interpreted inconjunction with the patient's clinical presentation,history and other laboratory results. If the results areinconsistent with clinical evidence, additional testing issuggested to confirm the result. Blood Venous blood specimen / Unknown 09/14/2024 4:32 PM EST 09/14/2024 6:05 PM EST us Mariya Cho MD LAB BLOOD ORDERAB LES Final Result [facility] [address] [place] [phone] * (ABNORMAL) Lipid Panel, Standard (09/14/2024 4:23 PM EST) Triglycerides 194(H) <150 mg/dL [facility] Comment:Desirable Triglyceri de: less than 150 mg/dLBorderline High Triglyceride 150-199 mg/dLHigh Triglyceride: 200-499 mg/dLVery High Triglyceride: greater than or equal to 5OO mg/dL Cholesterol 131 <200 mg/dL [facility] Comment:Desirable Cholestero l: less than 200 mg/dLBorderline High Cholesterol: 200-239 mg/dLHigh Cholesterol: greater than 239 mg/dL LDL Cholesterol Calculated 62 <100 mg/dL [facility] Comment:Desirable LDL: less than 100 mg/dLNear Optimal/Above Optimal LDL: 110- 129 mg/dLBorderline High LDL: 130-159 mg/dLHigh LDL: 160-189 mg/dLVery High LDL: greater than or equal to 190 mg/dL HDL Cholesterol 31(L) >40 mg/dL [facility] Comment:Desirable HDL: great er than 40 mg/dL Note: This HDL assay may give artificially low results in patients with liver disease. Blood Venous blood specimen / Unknown 09/14/2024 4:23 PM EST 09/14/2024 6:05 PM EST us Mariya Cho MD LAB BLOOD ORDERAB LES Final Result [facility] [address] [place] [phone] [phone] from Last 3 Months or Most Recently Relevant to Health Maintenance [place] [address] [place] [address] - [employer] Care Teams Legal Office Administrator Relationship Specialty Start Date End Date Mariya Juan MD [address] [place] [phone] PCP - General Internal Medicine 04/28/23
--- OUTSIDE RECORDS SUMMARY | 2025-01-03 19:37 | XMS_ITS | Encounter Summary ---
Author Organization [employer] Address [address] [place] [address] 7[address] [place] [address] Care Team Providers Care Bail Bondsman Name Role Phone Kay Dennis ENVIRONMENTAL FIELD SERVICES TECHNICIAN Primary Care Provider [phone] Mariya Juan MD Primary Care Pro vider Encounter Details Date Type Department Care Team (Late st Contact Info) Description 01/17/2023 Telephone [facility] MEDICINE [address] [place] [phone] Kay Dennis ENVIRONMENTAL FIELD SERVICES TECHNICIAN [address] [place] [address] Dept [place] [address] Social History Tobacco Use Types Packs/Day Years [...] dosing. Please call her to advised at [phone]. documented in this encounter Plan of Treatment Not on file documented as of this encounter Visit Diagnoses Not on filedocumented in this encounter Care Teams Bail Bondsman Relationship Specialty Start Date End Date Kay Dennis FNP PCP - General Family Medicine 07/05/22 04/27/23 Mariya Juan MD [address] [place] [phone] PCP - General Internal Medicine 04/28/23 documented as of this encounter
--- OUTSIDE RECORDS SUMMARY | 2025-01-03 19:37 | XMS_ITS | Data Portability ---
Author Organization [place] [facility] Address [address] [facility] [address] [place] [phone] Care Team Providers Care Supervisor Rice Milling Name Role Phone NAME, KEIRA Primary Care [...] 50 mcg/actua tion nasal spray,darrin pension [address] [id number], [address] [place], [place], [phone], 15:20:32 Patient TargetsNo targets recorded. Patient InstructionsNo instructions recorded. Reason for Referral None Reported. Problems Name Problem SNOMED Code Status Onset Date Resolution Date Notes Provider Name and Address Organization Details Recorded Time Amygdalolith 8599450 Active 2023 CHANI KIM PA-C [address] [place] [address], [place], [phone], [place] - [facility] 15:18:54 Allergic rhinitis 48924659 Active 2023 CHANI KIM PA-C [address] [place] [address], [place], [phone], [place] - [facility] 15:20:36 Problem Notes None recorded. Procedures Surgical History Date Name Laterality Status Provider Name and Address Organization Details Recorded Time Heart Surgery completed Dpahnie Welsh [place] - [facility] 04/11/2024 15:01:33 Imaging Results None recorded. Procedure Notes None recorded. Medical Equipment None Reported. Allergies No known drug allergies Medications Name Sig Start Date Stop Date Status Note LastModified by Organization Details LastModified Time albuterol active Not Available Not Angy ilable Not Available Miralax active Not Available Not Avail able Not Available Flonase Allergy Relief 50 mcg/actuati on nasal spray,suspe nsion [place] 2 sprays in both nostrils once daily x 30 days 024 active Not Available Not Available Not Avai lable Vitals Date Recorded Body height Body mass index (BMI) Body weight Provider Name and Address Organization Details Last Updated DateTime 08/30/2024 190.5 cm 30 kg/m2 056451.17 g Nelli Fishman [place] [facility] 08/30/2024 10:37:44 Date Recorded Body height Body mass index (BMI) Body weight Provider Name and Address Organization Details Last Updated DateTime 04/11/2024 190.5 cm 30 kg/m2 835401.17 g Daphnie Welsh [place] [facility] 04/11/2024 14:58:50 Social History None recorded. Functional Status None recorded. Mental Status None recorded. Family History Nothing Reported. Medical History No medical history recorded. Past Encounters Encounter ID Performer Location Encounter Start Date Encounter Closed Date Diagnosis/Indication Diagnosis SNOMED-CT Code Diagnosis ICD10 Code Diagnosis Note [id number] CHANI KIM PA-C [facility] [address] [place] [address] 04/11/2024 14:35:25 04/11/2024 15:13:40 Amygdalolith 4437424 J35.8 Allergic rhinitis 654723 04 J30.89 [id number] EDDIE MONTES MD [facility] [address] [place] [address] 08/30/2024 10:28:36 08/30/2024 10:58:17 Amygdalolith 8272815 J35.8 Discourage d surgery. Recommend observatio n. [...] Roberts Member ID Guarantor Name 04/11/2024 1 [facility] - DOS ON OR AFTER 2023 - MEDICARE ADVANTAGE [place] & [place] (MEDICARE REPLACEMENT/ADV ANTAGE - PPO) Ludin Mendes [id number] Ludin Mendes Notes Date Note Type Note [...] did not continue it. CHANI KIM PA-C [address] [place] [address], [phone], [place] - [facility] 04/11/2024 15:25:28 08/30/2024 text/html 38-year-old male presents for evaluation of tonsil stones. Bleeding has resolved. He has not been using flonase but finds mouth rinses helpful. He is less bothered than before. EDDIE MONTES MD [address] [place] [address],[address], [phone], [place] - [facility] 08/30/2024 11:00:13
--- OUTSIDE RECORDS SUMMARY | 2025-01-03 19:37 | XMS_ITS | Encounter Summary ---
Author Organization [employer] Address [address] [place] [address] 7[address] [place] [address] Care Team Providers Care Radiology Aide Name Role Phone Mariya Juan MD Primary Care Pro vider Reason for Visit * Reason Comments Med Refill Encounter Details Date Type Department Care Team (Late st Contact Info) Description 05/23/[address] [facility] MEDICINE [address] [place] [address] Kay Dennis FNP [address] [place] [address] Dept [place] [address] Social History Tobacco Use Types Packs/Day Years [...] documented as of this encounter Care Teams Radiology Aide Relationship Specialty Start Date End Date Mariya Juan MD [address] [place] [phone] PCP - General Internal Medicine 04/28/23 documented as of this encounter
--- OUTSIDE RECORDS SUMMARY | 2025-01-03 19:37 | XMS_ITS | Clinical Summary ---
Author Organization [facility] Address [address] [place] [address] Phone Care Team Providers Care Crucible Furnace Tender Name Role Phone Sharon Baum MD Primary Care Provider [phone] Allergies No known active allergies Medications Buprenorphine [...] to 64 Years) Completed 04/28/2023, 02/17/2013 Insurance [facility] ([id number] DENIS ERNANDEZ [phone] Care Teams Crucible Furnace Tender Relationship Specialty Start Date End Date Sharon Baum MD [address] [place] [phone] PCP - General Internal Medicine 10/20/22
--- OUTSIDE RECORDS SUMMARY | 2025-01-03 19:37 | XMS_ITS | Encounter Summary ---
Author Organization [employer] Address [address] [facility] 7t [place] [address] Care Team Providers Care Spinner Concrete Pipe Name Role Phone Mariya Juan MD [...] EST) Protime 33.0(H) 11.1 - 13.5 sec [facility] 12/19/2024 2:04 PM EST 12/19/2024 2:06 PM EST us Generic External Data Provider LAB BLOOD ORDERAB LES Final Result [facility] [address] [place] [address] [phone] * (ABNORMAL) ~PT, ~INR - ANTI COAG CLINIC (12/19/2024 2:04 PM EST) Prothrombin Time INR 2.8(H) 0.9 - 1.1 [facility] Comment:METER #: [id number] TERNATIONAL NORMALIZED RATIO (INR) REFERENCE RANGES Reference [...] Provider LAB BLOOD ORDERAB LES Final Result [facility] [address] [place] [phone] [phone] documented in this encounter Visit Diagnoses Not on filedocumented in this encounter Additional Health Concerns Assessment Noted Time PHQ-9 Depression Total Score: 12 07/24/ 024 2:22 PM EDT documented as of this encounter Care Teams Spinner Concrete Pipe Relationship Specialty Start Date End Date Mariya Juan MD [address] [place] [address] PCP - General Internal Medicine 04/28/23 documented as of this encounter
--- OUTSIDE RECORDS SUMMARY | 2025-01-03 19:37 | XMS_ITS | Encounter Summary ---
Author Organization [employer] Address [address] [place] [address] 7t [place] [address] Care Team Providers Care Psychologist Social Name Role Phone Kay Dennis Primary Care Provider +1- [phone] Mariya Juan MD Primary Care Pro vider Encounter Details Date Type Department Care Team (Late st Contact Info) Description 02/09/2023 Telephone [facility] MEDICINE [address] [place] [phone] Kay Dennis FNP [address] [place] [address] Dept [place] [address] Social History Tobacco Use Types Packs/Day Years [...] on filedocumented in this encounter Care Teams Psychologist Social Relationship Specialty Start Date End Date Kay Dennis FNP PCP - General Family Medicine 07/05/22 04/27/23 Mariya Juan MD [address] [place] [phone] PCP - General Internal Medicine 04/28/23 documented as of this encounter
--- OUTSIDE RECORDS SUMMARY | 2025-01-03 19:37 | XMS_ITS | Encounter Summary ---
Author Organization [employer] Address [address] [place] [address] 7t [place] [address] Care Team Providers Care Icd 9 Coder Name Role Phone Kay Dennis Sofie ROACH Primary Care Provider +1- [phone] Mariya Juan MD Primary Care Pro vider Encounter Details Date Type Department Care Team (Late st Contact Info) Description 12/16/2022 Orders Only [facility] [address] [place] [address] Aida Villegas LPN Social History Tobacco Use [...] EST) Protime 45.7(H) 11.1 - 13.5 sec [facility] 12/16/2022 2:35 PM EST 12/16/2022 2:36 PM EST [facility] External Provider LAB BLO OD ORDERABLES Final Result Performing Organization Address City/[facility] Co de Phone Number [facility] [address] [place] [phone] * (ABNORMAL) ~PT, ~INR - ANTI COAG CLINIC (12/16/2022 2:35 PM EST) Prothrombin Time INR 3.8(H) 0.9 - 1.1 [facility] Comment:METER #: [id number] TERNATIONAL NORMALIZED RATIO (INR) REFERENCE RANGES Reference [...] 2:35 PM EST 12/16/2022 2:36 PM EST [facility] External Provider LAB BLO OD ORDERABLES Final Result Performing Organization Address City/[facility] Co de Phone Number [facility] [address] [place] [phone] documented in this encounter Visit Diagnoses Not on filedocumented in this encounter Care Teams Icd 9 Coder Relationship Specialty Start Date End Date Kay Dennis FNP PCP - General Family Medicine 07/05/22 04/27/23 Mariya Juan MD [address] [place] [phone] PCP - General Internal Medicine 04/28/23 documented as of this encounter
--- OUTSIDE RECORDS SUMMARY | 2025-01-03 19:37 | XMS_ITS | Encounter Summary ---
Author Organization [employer] Address [address] [facility] 7t [place] [address] Care Team Providers Care Can Sorter Name Role Phone Mariya Juan MD Primary [...] EST) Protime 26.8(H) 11.1 - 13.5 sec [facility] 12/07/2024 3:10 PM EST 12/07/2024 3:11 PM EST us Generic External Data Provider LAB BLOOD ORDERAB LES Final Result [facility] [address] [place] [phone] * (ABNORMAL) ~PT, ~INR - ANTI COAG CLINIC (12/07/2024 3:10 PM EST) Prothrombin Time INR 2.2(H) 0.9 - 1.1 [facility] Comment:METER #: [id number] TERNATIONAL NORMALIZED RATIO (INR) REFERENCE RANGES Reference [...] Provider LAB BLOOD ORDERAB LES Final Result [facility] [address] [place] [address] [phone] documented in this encounter Visit Diagnoses Not on filedocumented in this encounter Additional Health Concerns Assessment Noted Time PHQ-9 Depression Total Score: 12 07/24/ 024 2:22 PM EDT documented as of this encounter Care Teams Can Sorter Relationship Specialty Start Date End Date Mariya Juan MD [address] [place] [address] PCP - General Internal Medicine 04/28/23 documented as of this encounter
--- OUTSIDE RECORDS SUMMARY | 2025-01-03 19:37 | XMS_ITS | Encounter Summary ---
Author Organization [employer] Address [address] [facility] 7t [place] [address] Care Team Providers Care Escort Blind Name Role Phone Kay Dennis Primary Care Provider +1- [phone] Mariya Juan MD Primary Care Pro vider Reason for Visit * Reason Onset Date Comments Durable Medical Equipment 02/25/2023 Encounter Details Date Type Department Care Team (Late st Contact Info) Description 02/25/2023 Telephone [facility] MEDICINE [address] [place] [phone] Kay Dennis FNP [address] [place] [address] Dept of [place] [address] Durable Medical Equipment Social History Tobacco Use [...] long ago. Please sent to script [email or web address] If any questions please contact Tammy at [phone] documented in this encounter Plan of Treatment Not on file documented as of this encounter Visit Diagnoses Not on filedocumented in this encounter Care Teams Escort Blind Relationship Specialty Start Date End Date Kay Dennis FNP PCP - General Family Medicine 07/05/22 04/27/23 Mariya Juan MD [address] [place] [phone] PCP - General Internal Medicine 04/28/23 documented as of this encounter
--- OUTSIDE RECORDS SUMMARY | 2025-01-03 19:38 | XMS_ITS | Encounter Summary ---
Author Organization [employer] Address [address] [place] [address] 7 [place] [address] Care Team Providers Care Chocolatier Name Role Phone Mariya Juan MD Primary Care Pro vider Reason for Visit * Reason Comments Med Refill Encounter Details Date Type Department Care Team ([facility] st Contact Info) Description 12/23/2024 Refill [facility] MEDICINE [address] [place], [place] [phone] Mariya Juan MD [address] [place] [address] Mechanical heart valve present Social History Tobacco Use Types Packs/Day Years [...] the past 12 months, has t he [employer], gas, oil or water company threatened to [...] Telephone Encounter - Olga Mendes RN - 12/25/2024 9:08 AM EST Pt follows with [facility] Cou[facility]. Last seen by them 12/19/24. INR was 2.8 Due for next INR 01/02/25. Pt has been compliant with INR draws and dosing. RN approves warfarin refill. Queued. documented in this encounter Plan of Treatment Not on file documented as of this encounter Visit Diagnoses Diagnosis Mechanical heart valve present documented in this encounter Additional Health Concerns Assessment Noted Time PHQ-9 Depression Total Score: 12 024 2:22 PM EDT documented as of this encounter Care Teams Chocolatier Relationship Specialty Start Date End Date Mariya Juan MD [address] [place] [phone] PCP - General Internal Medicine 04/28/23 documented as of this encounter
--- OUTSIDE RECORDS SUMMARY | 2025-01-03 19:38 | XMS_ITS | Encounter Summary ---
Author Organization [employer] Address [address] [place] [address] 7 [place] [address] Care Team Providers Care Tool Maintenance Worker Name Role Phone Mariya Juan MD Primary Care Pro vider Reason for Visit * Reason Onset Date Comments Med Refill 04/20/2024 Encounter Details Date Type Department Care Team ([facility] st Contact Info) Description 04/20/2024 Telephone [facility] MEDICINE [address] [place], [place] [phone] Mariya Juan MD [address] [place] [address] Med Refill Social History Tobacco Use Types [...] EDT Telephone call placed to Freida at [facility] Coumadin clinic. Gave orders to continue [...] PM EDT Received call from Freida from [facility] coumadin clinic. Pt back today for recheck, [...] 04/20/2024 4:01 PM EDT TC placed to [facility] Anticoagulation to inquire when pt last got INR drawn. According to the operator receptionist the pt was to come for [...] solution prefilled syringe [id number] [address] [facility] documented in this encounter Plan of Treatment Not on file documented as of this encounter Visit Diagnoses Not on filedocumented in this encounter Additional Health Concerns Assessment Noted Time PHQ-9 Depression Total Score: 04/28/20 23 2:32 PM EDT documented as of this encounter Care Teams Tool Maintenance Worker Relationship Specialty Start Date End Date Mariya Juan MD [address] [place] [phone] PCP - General Internal Medicine 04/28/23 documented as of this encounter
== END 2025-01-03 20:01 | disposition home or self-care (01) ==
PROVIDERS: Physician Assistant; Physician Assistant Medical; Emergency Provider Emergency Medicine
DX: K59.00 Constipation, unspecified (principal); R10.9 Unspecified abdominal pain; J45.909 Unspecified asthma, uncomplicated; F11.20 Opioid dependence, uncomplicated; Z87.891 Personal history of nicotine dependence; Z95.2 Presence of prosthetic heart valve; Z03.818 Encounter for observation for suspected exposure to other biological agents ruled out; Z79.01 Long term (current) use of anticoagulants
CPT/HCPCS: 0241U; 36415; 74018; 80053; 83605; 84484; 85025; 85610; 85652; 85730; 86140; 87040; 93005; 99283; 99284

== ENCOUNTER → 2025-01-03 14:48 | Outpatient (BNV) | payer OTHER, SELFPAY | PROVIDERS: Emergency Provider Emergency Medicine; Visit Provider Internal Medicine Cardiovascular Disease | DX: R10.9 Unspecified abdominal pain (principal) | CPT/HCPCS: 93010 ==

== ENCOUNTER → 2025-01-03 17:16 | Outpatient (BNV) | payer OTHER, SELFPAY | PROVIDERS: Emergency Provider Emergency Medicine; Visit Provider Radiology Vascular & Interventional Radiology | DX: R10.9 Unspecified abdominal pain (principal) | CPT/HCPCS: 74018 ==

== ENCOUNTER 2025-01-07 11:10 | Outpatient (AMB) | payer OTHER, SELFPAY ==
[2025-01-07 11:21] LABS: Prothrombin Time Whole Bld POC 16.4 sec (11.1-13.5); ~PT, ~INR - Anti Coag Clinic 1.4 (0.9-1.1)
--- NOTE | 2025-01-07 11:36 | MHC.OFFVISCO ---
Intake Intake Visit Reasons: Anticoagulation Allergies hydrocodone [From VICODIN] Allergy (Unknown, Verified 01/07/25 11:16) GI UPSET lovenox Adverse Reaction (Intermediate, Uncoded 01/07/25 11:16) Abdominal Pain Medication List - Last Reconciled 01/07/25 by Kayla Alvarez, RN acetaminophen 325 mg PO QID PRN 7 days acetaminophen ER (Tylenol Arthritis Pain) 1,300 mg PO Q8H PRN albuterol sulfate 90 mcg/actuation (ProAir HFA) 2 puffs inhalation Q4-6H PRN atorvastatin 20 mg PO DAILY blood pressure test kit-large As directed buprenorphine-naloxone 8-2 mg (Suboxone) 1 film sublingual BID celecoxib (Celebrex) 200 mg PO DAILY PRN coenzyme Q10 (Co Q-10) PO fluticasone propionate 50 mcg/actuation sprays intranasal hydroxyzine pamoate 25 mg PO TID inhalational spacing device (Sparkbrowser Pascale C spacer) As directed loratadine 10 mg PO DAILY melatonin 5 mg PO BEDTIME omeprazole 20 mg PO DAILY ondansetron 4 mg PO Q8H PRN 4 days ondansetron HCl 4 mg PO Q8H PRN polyethylene glycol 3350 (Miralax) 17 grams PO DAILY sodium chloride 0.65% (Deep Sea Nasal) sprays intranasal warfarin 7.5 mg See Protocol PO 2XW warfarin 10 mg See Protocol PO 5XW Nursing Note INR: 1.4?out of therapeutic range of 2.5-3.5 Pt admits to missing doses but not sure what days he missed States he was in the ER 4 days ago on 01/03/25 with abdominal discomfort and was told he was constipated. Takes miralax as needed prn. Medications and supplements reviewed Patient status: well Medications or supplements: zofran ordered Diet: uaual diet for pt Denies any signs and symptoms of bleeding or clotting or unusual bruising Bleeding, bruising, clotting discussed Nutritional guidance given: to avoid greens until INR therapeutic Dose: increase dose the next 2 days to 12.5mg (from 7.5mg) then usual dose of 7.5mg until next retest date in 4 days F/U INR Date : 12/14/24?? Patient verbalizing understanding of instructions with read back given. T/C to [facility] to report critical value. Spoke to Regina and INR of 1.4 with dosing plan and next retest date given to her. Anti-Coag Initial Assessment Social Hx Patient Tobacco Use Status: Former Tobacco user Tobacco use type: Cigarette alcohol intake: never Alcohol intake frequency: does not drink Coding Level of Care Code Est Patient Level 1 Diagnoses Current use of anticoagulant therapy Z79.01 Results AMB INR Fingerstick AMB INR Fingerstick 1.4 Last Edit by Kayla Alvarez RN on 01/07/25 11:34 interface delay Assessment & Plan Assessment & Plan (1) Current use of anticoagulant therapy: Code(s): Z79.01 - superintendent terminal (current) 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
--- OUTSIDE RECORDS SUMMARY | 2025-01-07 13:17 | XMS_ITS | Encounter Summary ---
Author Organization [employer] Address [address] [facility] 7t [place] [address] Care Team Providers Care Fashion Director Party Plan Sales Name Role Phone Kay Dennis Primary Care Provider +1- [phone] Mariya Juan MD Primary Care Pro vider Reason for Visit * Reason Onset Date Comments Durable Medical Equipment 02/25/2023 Encounter Details Date Type Department Care Team (Late st Contact Info) Description 02/25/2023 Telephone [facility] MEDICINE [address] [place] [phone] Kay Dennis FNP [address] [place] [address] Dept of [place] [address] Durable Medical Equipment Social History Tobacco Use [...] long ago. Please sent to script [email or web address] If any questions please contact Tammy at [phone] documented in this encounter Plan of Treatment Not on file documented as of this encounter Visit Diagnoses Not on filedocumented in this encounter Care Teams Fashion Director Party Plan Sales Relationship Specialty Start Date End Date Kay Dennis FNP PCP - General Family Medicine 07/05/22 04/27/23 Mariya Juan MD [address] [place] [phone] PCP - General Internal Medicine 04/28/23 documented as of this encounter
--- OUTSIDE RECORDS SUMMARY | 2025-01-07 13:17 | XMS_ITS | Encounter Summary ---
Author Organization [employer] Address [address] [place] [address] 7 [place] [address] Care Team Providers Care Apartment Coordinator Name Role Phone Mariya Juan MD Primary Care Pro vider Reason for Visit * Reason Onset Date Comments Med Refill 04/20/2024 Encounter Details Date Type Department Care Team ([facility] st Contact Info) Description 04/20/2024 Telephone [facility] MEDICINE [address] [place], [place] [phone] Mariya Juan MD [address] [place] [address] Med Refill Social History Tobacco Use Types [...] EDT Telephone call placed to Freida at [facility] Coumadin clinic. Gave orders to continue lovenox [...] PM EDT Received call from Freida from [facility] coumadin clinic. Pt back today for recheck, [...] 04/20/2024 4:01 PM EDT TC placed to [facility] Anticoagulation to inquire when pt last got INR drawn. According to the english instructor the pt was to come for a [...] solution prefilled syringe [id number] [address] [facility] documented in this encounter Plan of Treatment Not on file documented as of this encounter Visit Diagnoses Not on filedocumented in this encounter Additional Health Concerns Assessment Noted Time PHQ-9 Depression Total Score: 04/28/20 23 2:32 PM EDT documented as of this encounter Care Teams Apartment Coordinator Relationship Specialty Start Date End Date Mariya Juan MD [address] [place] [phone] PCP - General Internal Medicine 04/28/23 documented as of this encounter
--- OUTSIDE RECORDS SUMMARY | 2025-01-07 13:17 | XMS_ITS | Clinical Summary ---
Author Organization [employer] Address [address] [place] [address] 7t [place] [address] Care Team Providers Care Cold Mill Inspector Name Role Phone Mariya Juan MD [...] 14 mL 2 024 Active sodium chloride ([place]) 0.65 % nasal spray Administer 1 spray [...] weakness 04/28/2023 Overview (04/28/2023): Was seen at [facility] on 08/17/22 with noted nausea, diaphoresis in exam room, discomfort, profound fatigue, referred to [facility] now. Went to [facility] on 08/18/22 and was admitted for infection and started antibiotics. Blood cultures on 08/18/22 and 08/20/22 grew MSSA. 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 Plan was to transfer [facility]. Transferred to [facility] on 08/21/22 for further management of infective [...] bleed improving Has PT in home through [facility]. 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 Went to [facility] on 08/18/22 and was admitted for infection and started antibiotics. Blood cultures on 08/18/22 and 08/20/22 grew MSSA. 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 Plan was to transfer [facility]. Transferred to [facility] on 08/21/22 for further management of infective [...] endocarditis 11/03/2022 Overview (04/28/2023): Was seen at [facility] on 08/17/22 with noted nausea, diaphoresis in exam room, discomfort, profound fatigue, referred to [facility] now. Went to [facility] on 08/18/22 and was admitted for infection and started antibiotics. Blood cultures on 08/18/22 and 08/20/22 grew MSSA. 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 Plan was to transfer [facility]. Transferred to [facility] on 08/21/22 for further management of infective [...] Encounters Date Type Department Care Team Description 01/07/2025 Telephone [facility] [address] [place] [address] Mariya Juan MD critical lab 12/23/2024 Refill [facility] [address] [place] [address] Mariya Juan MD Mechanical heart valve present 12/19/2024 Orders Only GENERIC EXTERNAL DATA DEPARTMENT Provider, Generic External Data 12/10/2024 Refill [facility] [address] [place] [address] Mariya Juan MD Mild intermittent asthma without complication 12/07/2024 Orders Only GENERIC EXTERNAL DATA DEPARTMENT Provider, Generic External Data 11/30/2024 Telephone [facility] [address] [place] [phone] Mariya Juan MD Medication Question 11/30/2024 Telephone [facility] [address] [place] [address] Lyndsay Badillo MA February11/23/2024 Orders Only GENERIC EXTERNAL DATA DEPARTMENT Provider, Generic External Data 11/21/2024 Refill [facility] [address] [place] [phone] Mariya Juan MD Constipation, unspecified constipation type 11/19/2024 Orders Only GENERIC EXTERNAL DATA DEPARTMENT Provider, Generic External Data 11/09/2024 Orders Only GENERIC EXTERNAL DATA DEPARTMENT Provider, Generic External Data 11/01/2024 Orders Only GENERIC EXTERNAL DATA DEPARTMENT Provider, Generic External Data 10/26/2024 Telephone [facility] [address] [place] [phone] Mariya Juan MD 10/26/2024 Orders Only GENERIC EXTERNAL DATA DEPARTMENT Provider, Generic External Data 10/25/[address] [address] Mariya Juan MD Chart Prep 10/23/2024 Refill [facility] [address] [place] [address] Mariya Juan MD Anxiety state 10/15/2024 Telephone [facility] [address] [place] [address] Sheree Davidson RN Hospital Follow-up 10/12/2024 Orders Only GENERIC EXTERNAL DATA DEPARTMENT Provider, Generic External Data from Last 3 Months Immunizations Name Administration Dates Next Due DTaP 07/18/1989, 7,12/20/1986,11/19 Hep B, Adolescent or Pediatric 12/10/1998,1997,1998 Hib ([facility]) 10/20/1987 Influenza injectable quadriv alent IIV4 with [...] included. Protime 33.0(H) 11.1 - 13.5 sec [facility] 12/19/2024 2:04 PM EST 12/19/2024 2:06 PM EST us Generic External Data Provider LAB BLOOD ORDERAB LES Final Result Performing Organization Address [facility] Co de Phone Number [facility] [address] [place] [phone] * (ABNORMAL) ~PT, ~INR - ANTI COAG CLINIC (12/19/2024 2:04 PM EST) Only the most recent of7 resultswithin the time period is included. Prothrombin Time INR 2.8(H) 0.9 - 1.1 [facility] Comment:METER #: [id number] TERNATIONAL NORMALIZED RATIO (INR) REFERENCE RANGES Reference [...] 2:04 PM EST 12/19/2024 2:06 PM EST Generic External Data Provider LAB BLOOD ORDERAB LES Final Result Performing Organization Address [facility] de Phone Number [facility] [address] [place] [phone] * (ABNORMAL) Partial Thromboplastin Time, Activated (APTT) (10/12/2024 11:52 AM EST) Partial Thromboplastin Time 46.9(H) 26.0 - 36.8 SEC [facility] Comment:For information rega rding the monitoring of direct thrombininhibitors, please refer to Pharmacy. 10/12/2024 11:5 2 AM EST 10/12/2024 11:56 AM EST Generic External Data Provider LAB BLOOD ORDERAB LES Final Result Performing Organization Address [facility] Co de Phone Number [facility] [address] [place] [phone] * (ABNORMAL) Prothrombin Time-INR (10/12/2024 11:52 AM EST) [facility] Prothrombin Time 28.3(H) 10.9 - 12.4 SEC [facility] INTERNATIONAL NORM RATIO 2.4(H) 0.9 - 1.1 [facility] Comment:INTERNATIONAL NORMAL IZED RATIO (INR) [...] ORDERAB LES Final Result Performing Organization Address City/[facility]/ZIP Co de Phone Number [facility] [address] [place] [phone] * Magnesium (10/12/2024 11:52 AM EST) [facility] Magnesium 2.1 1.6 - 2.6 mg/dL [facility] 10/12/2024 11:5 2 AM EST 10/12/2024 11:56 AM EST Generic External Data Provider LAB BLOOD ORDERAB LES Final Result Performing Organization Address City/[facility]/ZIP Co de Phone Number [facility] [address] [place] [phone] * (ABNORMAL) Comprehensive Metabolic Panel (10/12/2024 11:52 AM EST) [facility] Sodium 140 135 - 145 mmol/L [facility] Potassium 4.1 3.3 - 5.1 mmol/L [facility] Chloride 106 96 - 108 mmol/L [facility] Carbon Dioxide 29 22 - 29 mmol/L [facility] Anion Gap 9(L) 12 - 20 [facility] Urea Nitrogen (BUN) 13 9 - 16 mg/dL [facility] Creatinine, Serum 0.90 0.5 - 1.4 mg/dL [facility] Creatinine Clr Calc Pharmacy 146.8 [facility] Comment:eGFR (calculated fro m the MDRD study equation) and eCrCl(calculated from the Cockcroft-Gault equation) are based ondifferent parameters and may not yield comparable results.If eCrCl result is absurd, please check patient'sheight/weight. Estimated Glomerular Filt Rate >60 [facility] Comment:Chronic Kidney Disea se: Estimated GFR < 60 mL/min/1.95o0Ddtumu Kidney Disease: Estimated GFR < 15 mL/min/1.73m2 Glucose 91 60 - 115 mg/dL [facility] Calcium 9.4 8.4 - 10.2 mg/dL [facility] Bilirubin, Total 0.3 0.0 - 1.0 mg/dL [facility] Aspartate Amino Transferase 62(H) 5 - 37 U/L [facility] Alanine Aminotransferase 99(H) 0 - 40 U/L [facility] Total Protein 8.0 6.5 - 8.0 g/dL [facility] Albumin Level 4.3 3.5 - 5.0 g/dL [facility] Alkaline Phosphatase 136(H) 39 - 117 U/L [facility] 10/12/2024 11:5 2 AM EST 10/12/2024 11:56 AM EST us Generic External Data Provider LAB BLOOD ORDERAB LES Final Result [facility] [address] [place] [address] [phone] * (ABNORMAL) CBC auto differential (10/12/2024 11:37 AM EST) White Blood Count 5.2 4.8 - 10.8 X10*3/uL [facility] Red Blood Count 5.16 4.60 - 5.80 X10*6/uL [facility] Hemoglobin 13.4(L) 14.0 - 18.0 g/dl [facility] Hematocrit 41.8(L) 42.0 - 52.0 % [facility] Mean Corpuscular Volume 81.0 80.0 - 98.0 fL [facility] Mean Corpuscular Hemoglobin 26.0(L) 27.0 - 33.0 pg [facility] Mean Corpuscular HGB Conc 32.1 31.0 - 36.0 g/dl [facility] Red Cell Distribution Width 13.4 11.0 - 16.0 % [facility] Platelet Count 237 160 - 400 X10*3/uL [facility] Mean Platelet Volume 11.0 9.4 - 12.4 fL [facility] Neutrophils Percent Auto 59.1 45 - 73 % [facility] Imm Gran Pct Auto 0.2 0.0 - 0.4 % [facility] Lymphocytes Percent Auto 29.3 20 - 40 % [facility] Monocytes Percent Auto 10.2 2 - 11 % [facility] Eosinophils Percent Auto 0.8 0 - 4 % [facility] Basophils Percent Auto 0.4 0 - 2 % [facility] NRBC Pct Auto 0.0 0.0 - 0.2 /100WBC [facility] Neutrophils Absolute Auto 3.1 2.0 - 8.3 x10*3/uL [facility] Imm Gran Abs Auto 0.01 0.00 - 0.03 X10*3/uL [facility] Lymphocytes Absolute Auto 1.5 1.2 - 4.9 X10*3/uL [facility] Monocytes Absolute Auto 0.5 0.1 - 1.2 X10*3/uL [facility] Eosinophils Absolute Auto 0.0 0.0 - 0.4 X10*3/uL [facility] Basophils Absolute Auto 0.0 0.0 - 0.2 X10*3/uL [facility] NRBC Abs Auto 0.000 0.0 - 0.012 X10*3/uL [facility] 10/12/2024 11:3 7 AM EST 10/12/2024 11:40 AM EST us Generic External Data Provider LAB BLOOD ORDERAB LES Final Result [facility] [address] [place] [address] [phone] * CT Head w/o Contrast (10/12/2024 11:00 AM EST) Anatomical Region Laterality Modality Head, Neck Computed Tomogra phy 10/12/2024 11:0 0 AM EST Narrative 10/12/2024 12:01 PM EST ? [facility] ?[address] ?[place] [address] ? CT Scan Report ? Signed ? Patient: Ludin Mendes ?MR#: [id number] ? : 1985 ?Acct:[id number] ? Age/Sex: 39 / M ?ADM Date: 10/12/24 ? Loc: HO.ED ? Attending Dr: ? Ordering Physician: Kindra Jaramillo NP ?? Date of Service: 10/12/24 ?? Procedure(s): CT head/brain wo IV con ?? Accession Number(s): [id number] ? cc: Mariya Juan MD; Kindra Jaramillo [...] ?? effacement, with approximately 3 mm of quhjv-lq-npng midline shift. ?? Close interval follow-up recommended [...] DD/ 1100 ? TD/TT: 10/12/24 1106 ? Highway Safety Engineer: ? Procedure Note Vladislav, Image - 10/12/[address] [address] [address] Scan Report Signed Patient: Ludin MendesMR#: [id number] : 1985Acct:[id number] Age/Sex: 39 / MADM Date: 10/12/24 Loc: HO.ED Attending Dr: Ordering Physician: Kindra Jaramillo NP Date of Service: 10/12/24 Procedure(s): CT head/brain wo IV con Accession Number(s): [id number] cc: Mariya Juan MD; Kindra Jaramillo NP [...] sulcal effacement, with approximately 3 mm of caanq-ko-wuty midline shift. Close interval follow-up recommended with CT. 2. No acute territorial infarct or gross parenchymal edema. No intra-axial hemorrhage. 3. No white matter abnormalities. Findings communicated to Emergency Department, Nahomy LOPEZ via phone call 11:51 AM, 10/12/2024 Electronically signed by: Jayson Avendano MD 10/12/2024 11:57 AM EST RP Dictated By: Jayson Avendano MD Signed By: <Electronically signed by Jayson Avendano MD in OV> 10/12/24 1157 DD/ 1100 TD/TT: 10/12/[address] Safety Engineer: [facility] External Provider IMG CT PROCEDURES Edited Result - Final * Hepatitis C Antibody with Reflex to HCV, RNA, Quantitative, Real-Time PCR (09/14/2024 4:32 PM EST) Hepatitis C Antibody Nonreactive Nonreactive [facility] Comment:Antibodies to HCV no t detected; does not exclude early acuteHCV infection. Blood Venous blood specimen / Unknown 09/14/2024 4:32 PM EST 09/14/2024 6:05 PM EST Mariya Cho MD LAB BLOOD ORDERAB LES Final Result [facility] [address] [place] [address] [phone] * HIV-1/2 Antigen and Antibodies, Fourth Generation, with Reflexes (09/14/2024 4:32 PM EST) HIV AB/AG Nonreactive Nonreactive [facility] Comment:HIV-1 p24 Ag and/or HIV-1/HIV-2 Ab not detected.A test result that is nonreactive does not exclude thepossibility of exposure to or infection with HIV-1 and/orHIV-2. Nonreactive results in this assay for individualswith prior exposure to HIV-1 and/or HIV-2 may be due toantigen and antibody levels that are below the limit ofdetection of this assay.The [employer] HIV Ag/Ab Combo assay result andsupplemental assay results should be interpreted inconjunction with the patient's clinical presentation,history and other laboratory results. If the results areinconsistent with clinical evidence, additional testing issuggested to confirm the result. Blood Venous blood specimen / Unknown 09/14/2024 4:32 PM EST 09/14/2024 6:05 PM EST us Mariya Cho MD LAB BLOOD ORDERAB LES Final Result [facility] [address] [place] [address] [phone] * (ABNORMAL) Lipid Panel, Standard (09/14/2024 4:23 PM EST) Triglycerides 194(H) <150 mg/dL [facility] Comment:Desirable Triglyceri de: less than 150 mg/dLBorderline High Triglyceride 150-199 mg/dLHigh Triglyceride: 200-499 mg/dLVery High Triglyceride: greater than or equal to 5OO mg/dL Cholesterol 131 <200 mg/dL [facility] Comment:Desirable Cholestero l: less than 200 mg/dLBorderline High Cholesterol: 200-239 mg/dLHigh Cholesterol: greater than 239 mg/dL LDL Cholesterol Calculated 62 <100 mg/dL [facility] Comment:Desirable LDL: less than 100 mg/dLNear Optimal/Above Optimal LDL: 110- 129 mg/dLBorderline High LDL: 130-159 mg/dLHigh LDL: 160-189 mg/dLVery High LDL: greater than or equal to 190 mg/dL HDL Cholesterol 31(L) >40 mg/dL [facility] Comment:Desirable HDL: great er than 40 mg/dL Note: This HDL assay may give artificially low results in patients with liver disease. Blood Venous blood specimen / Unknown 09/14/2024 4:23 PM EST 09/14/2024 6:05 PM EST Mariya Cho MD LAB BLOOD ORDERAB LES Final Result [facility] [address] [place] [phone] from Last 3 Months or Most Recently Relevant to Health Maintenance Insurance - [employer] Care Teams Cold Mill Inspector Relationship Specialty Start Date End Date Mariya Juan MD [address] [place] [address] [phone] PCP - General Internal Medicine 04/28/23
--- OUTSIDE RECORDS SUMMARY | 2025-01-07 13:17 | XMS_ITS | Encounter Summary ---
Author Organization [employer] Address [address] [place] [address] 7t [place] [address] Care Team Providers Care Child Center Assistant Name Role Phone Kay Dennis [employer] Primary Care Provider +1- [phone] Mariya Juan MD Primary Care Pro vider Encounter Details Date Type Department Care Team (Late st Contact Info) Description 01/17/2023 Telephone [facility] [address] [place] [phone] Kay Dennis [employer] [address] [place] [address] Dept of [place] [address] Social History Tobacco Use Types Packs/Day Years [...] dosing. Please call her to advised at [phone]. documented in this encounter Plan of Treatment Not on file documented as of this encounter Visit Diagnoses Not on filedocumented in this encounter Care Teams Child Center Assistant Relationship Specialty Start Date End Date Kay Dennis FNP PCP - General Family Medicine 07/05/22 04/27/23 Mariya Juan MD [address] [place] [phone] PCP - General Internal Medicine 04/28/23 documented as of this encounter
--- OUTSIDE RECORDS SUMMARY | 2025-01-07 13:17 | XMS_ITS | Encounter Summary ---
Author Organization [employer] Address [address] [place] [address] 7t [place] [address] Care Team Providers Care Tile Burner Name Role Phone Kay Dennis Sofie ROACH Primary Care Provider +1- [phone] Mariya Juan MD Primary Care Pro vider Encounter Details Date Type Department Care Team (Late st Contact Info) Description 12/16/2022 Orders Only [facility] [address] [place] [address] Aida Villegas LPN Social History Tobacco Use [...] 2:35 PM EST 12/16/2022 2:36 PM EST [facility] External Provider LAB BLO OD ORDERABLES Final Result Performing Organization Address City/[facility] Co de Phone Number [facility] [address] [place] [phone] * (ABNORMAL) ~PT, ~INR - ANTI COAG CLINIC (12/16/2022 2:35 PM EST) Prothrombin Time INR 3.8(H) 0.9 - 1.1 [facility] Comment:METER #: [id number] TERNATIONAL NORMALIZED RATIO (INR) REFERENCE RANGES Reference [...] 2:35 PM EST 12/16/2022 2:36 PM EST [facility] External Provider LAB BLO OD ORDERABLES Final Result Performing Organization Address City/[facility] Co de Phone Number [facility] [address] [place] [phone] documented in this encounter Visit Diagnoses Not on filedocumented in this encounter Care Teams Tile Burner Relationship Specialty Start Date End Date Kay Dennis FNP PCP - General Family Medicine 07/05/22 04/27/23 Mariya Juan MD [address] [place] [phone] PCP - General Internal Medicine 04/28/23 documented as of this encounter
--- OUTSIDE RECORDS SUMMARY | 2025-01-07 13:17 | XMS_ITS | Encounter Summary ---
Author Organization [employer] Address [address] [place] [address] 7 [place] [address] Care Team Providers Care Relaster Name Role Phone Mariya Juan MD Primary Care Pro vider Reason for Visit * Reason Comments Med Refill Encounter Details Date Type Department Care Team ([facility] st Contact Info) Description 12/23/2024 Refill [facility] [address] [place], [place] [phone] Mariya Juan MD [address] [place] [address] Mechanical heart valve present Social History Tobacco [...] the past 12 months, has t he [employer], gas, oil or water company threatened to [...] 12/25/2024 9:08 AM EST Pt follows with [facility]. Last seen by them 12/19/24. [...] documented as of this encounter Care Teams Relaster Relationship Specialty Start Date End Date Mariya Juan MD [address] [place] [phone] PCP - General Internal Medicine 04/28/23 documented as of this encounter
--- OUTSIDE RECORDS SUMMARY | 2025-01-07 13:17 | XMS_ITS | Encounter Summary ---
Author Organization [employer] Address [address] [place] [address] 7t [place] [address] Care Team Providers Care Sand Molder Name Role Phone Mariya Juan MD Primary Care Pro vider Reason for Visit * Reason Comments Med Refill Encounter Details Date Type Department Care Team (Late st Contact Info) Description 05/23/2023 Refill [facility] [address] [place] [address] Kay Dennis FNP [address] [place] [address] Dept [place] [address] Social History Tobacco Use Types Packs/Day Years [...] documented as of this encounter Care Teams Sand Molder Relationship Specialty Start Date End Date Mariya Juan MD [address] [place] [phone] PCP - General Internal Medicine 04/28/23 documented as of this encounter
--- OUTSIDE RECORDS SUMMARY | 2025-01-07 13:17 | XMS_ITS | Encounter Summary ---
Author Organization [employer] Address [address] [place] [address] 7t [place] [address] Care Team Providers Care Trim Carpenter Name Role Phone Kay Dennis Primary Care Provider +1- [phone] Mariya Juan MD Primary Care Pro vider Encounter Details Date Type Department Care Team (Late st Contact Info) Description 02/09/2023 Telephone [facility] [address] [place] [phone] Kay Dennis FNP [address] [place] [address] Dept [place] [address] Social History Tobacco Use Types Packs/Day Years [...] on filedocumented in this encounter Care Teams Trim Carpenter Relationship Specialty Start Date End Date Kay Dennis FNP PCP - General Family Medicine 07/05/22 04/27/23 Mariya Juan MD [address] [place] [phone] PCP - General Internal Medicine 04/28/23 documented as of this encounter
--- OUTSIDE RECORDS SUMMARY | 2025-01-07 13:17 | XMS_ITS | Data Portability ---
Author Organization [place] - [facility], Allergy Address [address] [facility] [address] [place] [address] Care Team Providers Care Territory Sales Representative Name Role Phone NAME, KEIRA Primary Care Provider [phone] Assessment Encounter Date Assessment Date Assessment LastModified [...] 50 mcg/actua tion nasal spray,darrin pension [address] [id number], [address] [place], [place], [phone], 15:20:32 Patient TargetsNo targets recorded. Patient InstructionsNo instructions recorded. Reason for Referral None Reported. 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 Procedures Surgical History Date Name Laterality Status Provider Name and Address Organization Details Recorded Time Heart Surgery completed Daphnie Welsh [place] - [facility] 04/11/2024 15:01:33 Imaging Results None recorded. Procedure Notes None recorded. Medical Equipment None Reported. Allergies No known drug allergies Medications Name Sig Start Date Stop Date Status Note LastModified by Organization Details LastModified Time albuterol active Not Available Not Angy ilable Not Available Miralax active Not Available Not Avail able Not Available Flonase Allergy Relief 50 mcg/actuati on nasal spray,suspe nsion [place] 2 sprays in both nostrils once daily x 30 days 024 active Not Available Not Available Not Avai lable Vitals Date Recorded Body height Body mass index (BMI) Body weight Provider Name and Address Organization Details Last Updated DateTime 08/30/2024 190.5 cm 30 kg/m2 289155.17 g Nelli Fishman [place] - [facility] 08/30/2024 10:37:44 Date Recorded Body height Body mass index (BMI) Body weight Provider Name and Address Organization Details Last Updated DateTime 04/11/2024 190.5 cm 30 kg/m2 609286.17 g Daphnie Welsh [place] - [facility] 04/11/2024 14:58:50 Social History None recorded. Functional Status None recorded. Mental Status None recorded. Family History Nothing Reported. Medical History No medical history recorded. Past Encounters Encounter ID Performer Location Encounter Start Date Encounter Closed Date Diagnosis/Indication Diagnosis SNOMED-CT Code Diagnosis ICD10 Code Diagnosis Note [id number] CHANI KIM PA-C [facility] [address] [place] [address] 04/11/2024 14:35:25 04/11/2024 15:13:40 Amygdalolith 2073225 J35.8 Allergic rhinitis 661668 04 J30.89 [id number] EDDIE MONTES MD [facility] [address] [place] [address] 08/30/2024 10:28:36 08/30/2024 10:58:17 Amygdalolith [id number] J35.8 Discourage d surgery. Recommend observatio n. [...] Roberts Member ID Guarantor Name 04/11/2024 1 [facility] - DOS ON OR AFTER 2023 - MEDICARE ADVANTAGE [place] & [place] (MEDICARE REPLACEMENT/ADV ANTAGE - PPO) Ludin Mendes [id number] Ludin Mendes Notes Date Note Type Note [...] did not continue it. CHANI KIM PA-C [address] [place] [address], [phone], [place] - [facility] 04/11/2024 15:25:28 08/30/2024 text/html 38-year-old male presents for evaluation of tonsil stones. Bleeding has resolved. He has not been using flonase but finds mouth rinses helpful. He is less bothered than before. EDDIE MONTES MD [address] [place] [address],[address], [phone], [place] - [facility] 08/30/2024 11:00:13
--- OUTSIDE RECORDS SUMMARY | 2025-01-07 13:17 | XMS_ITS | Encounter Summary ---
Author Organization [employer] Address [address] [place] [address] 7 [place] [address] Care Team Providers Care Washing Machine Operator Name Role Phone Mariya Juan MD Primary Care Pro vider Reason for Visit * Reason Onset Date Comments critical lab 01/07/2025 Encounter Details Date Type Department Care Team ([facility] st Contact Info) Description 01/07/2025 Telephone [facility] [address] [place] [address] Mariya Juan MD [address] [place] [address] critical lab Social History Tobacco Use Types Packs/Day Years [...] the past 12 months, has t he [employer], gas, oil or water company threatened to [...] encounter Miscellaneous Notes * Telephone Encounter - Regina Garibay RN - 01/07/2025 11:45 AM EST [facility] called into critical lab line with critical INR of 1.4. Clinic seems to believe pt is skipping doses. Pt is scheduled to take 12.5 mg 01/07/25 and 01/08/25. Then to go back to 7.5 mg dose 01/09/25-01/10/25. Pt to return for redraw 01/11/25. Will route to PCP and team. Olga Mendes RN made aware. documented in this encounter Plan of Treatment Not on file documented as of this encounter Visit Diagnoses Not on filedocumented in this encounter Additional Health Concerns Assessment Noted Time PHQ-9 Depression Total Score: 12 024 2:22 PM EDT documented as of this encounter Care Teams Washing Machine Operator Relationship Specialty Start Date End Date Mariya Juan MD [address] [place] [address] PCP - General Internal Medicine 04/28/23 documented as of this encounter
--- OUTSIDE RECORDS SUMMARY | 2025-01-07 13:17 | XMS_ITS | Encounter Summary ---
Author Organization [employer] Address [address] [facility] 7t [place] [address] Care Team Providers Care Sign Manufacturer Name Role Phone Mariya Juan MD Primary Care Pro vider Reason for Visit * Reason Onset Date Comments Med Refill 12/10/2024 Encounter Details Date Type Department Care Team (Late st Contact Info) Description 12/10/2024 Refill [facility] [address] [place] [address] Mariya Juan MD 230 [place] [address] Mild intermittent asthma without complication Social History [...] documented as of this encounter Care Teams Sign Manufacturer Relationship Specialty Start Date End Date Mariya Juan MD [address] [place] [address] PCP - General Internal Medicine 04/28/23 documented as of this encounter
--- OUTSIDE RECORDS SUMMARY | 2025-01-07 13:17 | XMS_ITS | Encounter Summary ---
Author Organization [employer] Address [address] [facility] 7t [place] [address] Care Team Providers Care Clinical Staff Pharmacist Name Role Phone Mariya Juan MD Primary [...] EST) Protime 33.0(H) 11.1 - 13.5 sec [facility] 12/19/2024 2:04 PM EST 12/19/2024 2:06 PM EST us Generic External Data Provider LAB BLOOD ORDERAB LES Final Result [facility] [address] [place] [address] [phone] * (ABNORMAL) ~PT, ~INR - ANTI COAG CLINIC (12/19/2024 2:04 PM EST) Prothrombin Time INR 2.8(H) 0.9 - 1.1 [facility] Comment:METER #: [id number] TERNATIONAL NORMALIZED RATIO (INR) REFERENCE RANGES Reference [...] Provider LAB BLOOD ORDERAB LES Final Result [facility] [address] [place] [address] [phone] documented in this encounter Visit Diagnoses Not on filedocumented in this encounter Additional Health Concerns Assessment Noted Time PHQ-9 Depression Total Score: 12 07/24/ 024 2:22 PM EDT documented as of this encounter Care Teams Clinical Staff Pharmacist Relationship Specialty Start Date End Date Mariya Juan MD [address] [place] [address] PCP - General Internal Medicine 04/28/23 documented as of this encounter
--- OUTSIDE RECORDS SUMMARY | 2025-01-07 13:17 | XMS_ITS | Clinical Summary ---
Author Organization [facility] Address [address] [place] [address] Phone Care Team Providers Care Milk Runner Name Role Phone Sharon Baum MD Primary Care Provider [phone] Allergies No known active allergies Medications Buprenorphine [...] to 64 Years) Completed 04/28/2023, 02/17/2013 Insurance [facility] ([id number]) [facility] ([id number]) DENIS ERNANDEZ [phone] Care Teams Milk Runner Relationship Specialty Start Date End Date Sharon Baum MD [address] [place] [address] PCP - General Internal Medicine 10/20/22
== END 2025-01-07 11:50 | disposition home or self-care (01) ==
LOC: HO.ACS 11:10
PROVIDERS: Visit Provider Internal Medicine
DX: Z79.01 Long term (current) use of anticoagulants (principal)

== ENCOUNTER → 2025-01-07 11:10 | Outpatient (BNVA) | payer OTHER, SELFPAY | PROVIDERS: Visit Provider Internal Medicine | DX: Z95.2 Presence of prosthetic heart valve (principal); Z79.01 Long term (current) use of anticoagulants; Z51.81 Encounter for therapeutic drug level monitoring | CPT/HCPCS: 85610; 99211 ==

== ENCOUNTER 2025-01-11 13:28 | Outpatient (AMB) | payer OTHER, SELFPAY ==
[2025-01-11 13:38] LABS: Prothrombin Time Whole Bld POC 35.4 sec (11.1-13.5)
--- NOTE | 2025-01-11 13:42 | MHC.OFFVISCO ---
Intake Intake Visit Reasons: Anticoagulation Allergies hydrocodone [From VICODIN] Allergy (Unknown, Verified 01/11/25 13:30) GI UPSET Medication List - Last Reconciled 01/11/25 by Kayla Mena RN acetaminophen 325 mg PO QID PRN 7 days acetaminophen ER (Tylenol Arthritis Pain) 1,300 mg PO Q8H PRN albuterol sulfate 90 mcg/actuation (ProAir HFA) 2 puffs inhalation Q4-6H PRN atorvastatin 20 mg PO DAILY blood pressure test kit-large As directed buprenorphine-naloxone 8-2 mg (Suboxone) 1 film sublingual BID celecoxib (Celebrex) 200 mg PO DAILY PRN coenzyme Q10 (Co Q-10) PO fluticasone propionate 50 mcg/actuation sprays intranasal hydroxyzine pamoate 25 mg PO TID inhalational spacing device (OptiChamber Pascale [facility] spacer) As directed loratadine 10 mg PO DAILY melatonin 5 mg PO BEDTIME omeprazole 20 mg PO DAILY ondansetron 4 mg PO Q8H PRN 4 days ondansetron HCl 4 mg PO Q8H PRN polyethylene glycol 3350 (Miralax) 17 grams PO DAILY sodium chloride 0.65% (Deep Sea Nasal) sprays intranasal warfarin 7.5 mg See Protocol PO 2XW warfarin 10 mg See Protocol PO 5XW Nursing Note Arrival: Patient arrives to [facility] amb feeling well Status: Denies changes in health, diet, medications or supplements other than lovenox injections due to previous INR 1.4 pt denies any adverse reaction to the lovenox, sts some bruising, some burning (uses ice to area post injection) and no diarrhea- lovenox removed from list of adverse or allergies Denies any other symptoms of bleeding, bruising or clotting. INR: 3.0 in therapeutic range Therapeutic Range: 2.5-3.5 Dose: continue now with usual warfarin dosing 3.75mg on Sundays and 7.5mg all other days. Can stop the lovenox (last dose last evening, did not take this am) Nutritional Guidance: Review food list weekly, especially during the holidays, seasonal changes and celebrations. Continue to eat a consistent and balanced diet to keep INR in therapeutic range. encouraged to avoid heavy duty greens this weekend such as juan sandy Follow-up Appointment: 10 days- has upcoming dental consultation 01/28 for removal of 3 teeth, instructed to get orders related to warfarain use, possible hold, and possible lovenox bridge if indicated. Patient verbalizes understanding of instructions given regarding dosing, diet and next follow-up appointment with read back. Anti-Coag Initial Assessment Social Hx Patient Tobacco Use Status: Former Tobacco user Tobacco use type: Cigarette alcohol intake: never Alcohol intake frequency: does not drink Coding Level of Care Code Est Patient Level 1 Diagnoses Current use of anticoagulant therapy Z79.01 Time Spent (min) 15 Assessment & Plan Assessment & Plan (1) Current use of anticoagulant therapy: Code(s): Z79.01 - retirement (current) 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
--- OUTSIDE RECORDS SUMMARY | 2025-01-11 15:05 | XMS_ITS | Encounter Summary ---
Author Organization [employer] Address [address] [place] [address] 7 [place] [address] Care Team Providers Care Consulting Sme Name Role Phone Mariya Juan MD Primary Care Pro vider Reason for Visit * Reason Onset Date Comments critical lab 01/07/2025 Encounter Details Date Type Department Care Team ([facility] st Contact Info) Description 01/07/2025 Telephone [facility] [address] [place] [address] Mariya Juan MD [address] [place] [address] critical lab Social History Tobacco Use Types [...] Telephone Encounter - Olga Mendes RN - 01/08/2025 2:38 PM EST Spoke with Dr Lei. Informed that pt has standing order for lovenox administration with [facility] but that we send the script. She sent lovenox script to his pharmacy. Telephone call returned to Freida at [facility]. Informed lovenox sent and that provider agrees with plan. She reports pt hesitant to take lovenox d/t recent brain bleed. However, he is high risk for clot and for bleeding so they need to regulate his INR. Informed I wouldspeak with pt. Telephone call placed to pt. No answer, left v/m informing lovenox sent to his pharmacy and to callme back if he has any concerns. * Telephone Encounter - Goldne Umanzor RN - 01/08/2025 9:02 AM EST TC received from [facility] critical lab line (Freida) who reports that patient INR yesterday was 1.4 and order are for patient to start lovenox when his INR is less that 2 (range is 2.5-3.5) Patient is concerned as he recently had a brain bleed and wants to know how to proceed. Message sent to team nursesfor follow up. Number to reach Freida is [phone]. Warm hand off given to Olga Munoz * Telephone Encounter - Regina Garibay RN - 01/07/2025 11:45 AM EST [facility] called into critical lab line with critical INR of 1.4. Clinic seems to believe pt is skipping doses. Pt is scheduled to take 12.5 mg 01/07/25 and 01/08/25. Then to go back to 7.5 mg dose 01/09/25-01/10/25. Pt to return for redraw 01/11/25. Will route to PCP and team. Olga Mednes RN made aware. documented in this encounter Plan of Treatment Not on file documented as of this encounter Visit Diagnoses Not on filedocumented in this encounter Additional Health Concerns Assessment Noted Time PHQ-9 Depression Total Score: 12 024 2:22 PM EDT documented as of this encounter Care Teams Consulting Sme Relationship Specialty Start Date End Date Mariya Juan MD [address] [place] [address] PCP - General Internal Medicine 04/28/23 documented as of this encounter
--- OUTSIDE RECORDS SUMMARY | 2025-01-11 15:05 | XMS_ITS | Encounter Summary ---
Author Organization [employer] Address [address] [place] [address] 7t [place] [address] Care Team Providers Care Job Service Consultant Name Role Phone Kay Dennis Sofie ROACH Primary Care Provider [phone] Mariya Juan MD Primary Care Pro vider Encounter Details Date Type Department Care Team (Late st Contact Info) Description 12/16/2022 Orders Only [facility] [address] [place] [address] Aida Villegas LPN Social History Tobacco Use [...] EST) Protime 45.7(H) 11.1 - 13.5 sec [facility] 12/16/2022 2:35 PM EST 12/16/2022 2:36 PM EST [facility] External Provider LAB BLO OD ORDERABLES Final Result Performing Organization Address City/[facility] Co de Phone Number [facility] [address] [place] [phone] * (ABNORMAL) ~PT, ~INR - ANTI COAG CLINIC (12/16/2022 2:35 PM EST) Prothrombin Time INR 3.8(H) 0.9 - 1.1 [facility] Comment:METER #: [id number] TERNATIONAL NORMALIZED RATIO (INR) REFERENCE RANGES Reference [...] 2:35 PM EST 12/16/2022 2:36 PM EST [facility] External Provider LAB BLO OD ORDERABLES Final Result Performing Organization Address [facility] Co de Phone Number [facility] [address] [place] [phone] documented in this encounter Visit Diagnoses Not on filedocumented in this encounter Care Teams Job Service Consultant Relationship Specialty Start Date End Date Kay Dennis FNP PCP - General Family Medicine 07/05/22 04/27/23 Mariya Juan MD [address] [place] [address] PCP - General Internal Medicine 04/28/23 documented as of this encounter
--- OUTSIDE RECORDS SUMMARY | 2025-01-11 15:05 | XMS_ITS | Encounter Summary ---
Author Organization [employer] Address [address] [place] [address] 7 [place] [address] Care Team Providers Care Oracle Etl Developer Name Role Phone Mariya Juan MD Primary Care Pro vider Reason for Visit * Reason Onset Date Comments Med Refill 01/08/2025 Encounter Details Date Type Department Care Team ([facility] st Contact Info) Description 01/08/2025 Telephone [facility] [address] [place] [address] Mariya Juan MD [address] [place] [address] Med Refill Social History Tobacco Use Types [...] encounter Miscellaneous Notes * Telephone Encounter - Glory Rich - 01/08/2025 1:52 PM EST TC from pt requesting medication refill. Medications needing refill : Enoxaparin Sodium (Lovenox) 100 MG/ML solution prefilled syringe [id number] [place], [place] [facility] [address] [facility] documented in this encounter Plan of Treatment Not on file documented as of this encounter Visit Diagnoses Not on filedocumented in this encounter Additional Health Concerns Assessment Noted Time PHQ-9 Depression Total Score: 12 024 2:22 PM EDT documented as of this encounter Care Teams Oracle Etl Developer Relationship Specialty Start Date End Date Mariya Juan MD [address] [place] [address] [phone] PCP - General Internal Medicine 04/28/23 documented as of this encounter
--- OUTSIDE RECORDS SUMMARY | 2025-01-11 15:05 | XMS_ITS | Encounter Summary ---
Author Organization [employer] Address [address] [facility] 7t [place] [address] Care Team Providers Care Digital Technician Name Role Phone Mariya Juan MD [...] EST) Protime 33.0(H) 11.1 - 13.5 sec [facility] 12/19/2024 2:04 PM EST 12/19/2024 2:06 PM EST us Generic External Data Provider LAB BLOOD ORDERAB LES Final Result [facility] [address] [place] [phone] * (ABNORMAL) ~PT, ~INR - ANTI COAG CLINIC (12/19/2024 2:04 PM EST) Prothrombin Time INR 2.8(H) 0.9 - 1.1 [facility] Comment:METER #: [id number] TERNATIONAL NORMALIZED RATIO (INR) REFERENCE RANGES Reference [...] Provider LAB BLOOD ORDERAB LES Final Result [facility] [address] [place] [phone] [phone] documented in this encounter Visit Diagnoses Not on filedocumented in this encounter Additional Health Concerns Assessment Noted Time PHQ-9 Depression Total Score: 12 07/24/ 024 2:22 PM EDT documented as of this encounter Care Teams Digital Technician Relationship Specialty Start Date End Date Mariya Juan MD [address] [place] [address] PCP - General Internal Medicine 04/28/23 documented as of this encounter
--- OUTSIDE RECORDS SUMMARY | 2025-01-11 15:05 | XMS_ITS | Encounter Summary ---
Author Organization [employer] Address [address] [place] [address] 7 [place] [address] Care Team Providers Care Commuter Pilot Name Role Phone Mariya Juan MD Primary Care Pro vider Reason for Visit * Reason Comments Med Refill Encounter Details Date Type Department Care Team ([facility] st Contact Info) Description 12/23/2024 Refill [facility] [address] [place], [place] [phone] Mariya Juan MD [address] [place] [address] Mechanical heart valve present Social History Tobacco [...] the past 12 months, has t he [employer], gas, oil or water company threatened to [...] 12/25/2024 9:08 AM EST Pt follows with [facility]. Last seen by them 12/19/24. [...] documented as of this encounter Care Teams Commuter Pilot Relationship Specialty Start Date End Date Mariya Juan MD [address] [place] [address] PCP - General Internal Medicine 04/28/23 documented as of this encounter
--- OUTSIDE RECORDS SUMMARY | 2025-01-11 15:05 | XMS_ITS | Encounter Summary ---
Author Organization [employer] Address [address] [place] [address] 7t [place] [address] Care Team Providers Care Egg Producer Name Role Phone Mariya Juan MD Primary Care Pro vider Reason for Visit * Reason Comments Med Refill Encounter Details Date Type Department Care Team (Late st Contact Info) Description 05/23/2023 Refill [facility] [address] [place] [address] Kay Dennis FNP [address] [place] [address] Dept [place] [address] Social History Tobacco Use Types Packs/Day Years [...] documented as of this encounter Care Teams Egg Producer Relationship Specialty Start Date End Date Mariya Juan MD [address] [place] [phone] PCP - General Internal Medicine 04/28/23 documented as of this encounter
--- OUTSIDE RECORDS SUMMARY | 2025-01-11 15:05 | XMS_ITS | Data Portability ---
Author Organization [place] - [facility], Allergy Address [address] [facility] [address] [place] [address] Care Team Providers Care Calender Roll Operator Name Role Phone NAME, KEIRA Primary Care [...] 50 mcg/actua tion nasal spray,darrin pension [address] [id number], [address] [place], [place], [phone], 15:20:32 Patient TargetsNo targets recorded. Patient InstructionsNo instructions recorded. Reason for Referral None Reported. 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 Procedures Surgical History Date Name Laterality Status Provider Name and Address Organization Details Recorded Time Heart Surgery completed Daphnie Welsh [place] - [facility] 04/11/2024 15:01:33 Imaging Results None recorded. Procedure Notes None recorded. Medical Equipment None Reported. Allergies No known drug allergies Medications Name Sig Start Date Stop Date Status Note LastModified by Organization Details LastModified Time albuterol active Not Available Not Angy ilable Not Available Miralax active Not Available Not Avail able Not Available Flonase Allergy Relief 50 mcg/actuati on nasal spray,suspe nsion [place] 2 sprays in both nostrils once daily x 30 days 024 active Not Available Not Available Not Avai lable Vitals Date Recorded Body height Body mass index (BMI) Body weight Provider Name and Address Organization Details Last Updated DateTime 08/30/2024 190.5 cm 30 kg/m2 325756.17 g Nelli Fishman [place] - [facility] 08/30/2024 10:37:44 Date Recorded Body height Body mass index (BMI) Body weight Provider Name and Address Organization Details Last Updated DateTime 04/11/2024 190.5 cm 30 kg/m2 891450.17 g Daphnie Welsh [place] - [facility] 04/11/2024 14:58:50 Social History None recorded. Functional Status None recorded. Mental Status None recorded. Family History Nothing Reported. Medical History No medical history recorded. Past Encounters Encounter ID Performer Location Encounter Start Date Encounter Closed Date Diagnosis/Indication Diagnosis SNOMED-CT Code Diagnosis ICD10 Code Diagnosis Note [id number] CHANI KIM PA-C [facility] [address] [place] [address] 04/11/2024 14:35:25 04/11/2024 15:13:40 Amygdalolith 0160759 J35.8 Allergic rhinitis 486930 04 J30.89 [id number] EDDIE MONTES MD [facility] [address] [place] [address] 08/30/2024 10:28:36 08/30/2024 10:58:17 Amygdalolith 8346153 J35.8 Discourage d surgery. Recommend observatio n. [...] Roberts Member ID Guarantor Name 04/11/2024 1 [facility] - DOS ON OR AFTER 2023 - MEDICARE ADVANTAGE [place] (MEDICARE REPLACEMENT/AD VANTAGE - PPO) Ludin Mendes [id number] Ludin Mendes Notes Date Note Type Note [...] did not continue it. CHANI KIM PA-C [address], [address], [facility] - [facility] 04/11/2024 15:25:28 08/30/2024 text/html 38-year-old male presents for evaluation of tonsil stones. Bleeding has resolved. He has not been using flonase but finds mouth rinses helpful. He is less bothered than before. EDDIE MONTES MD [address] [place] [address],[address], [address], [facility] - [facility] 08/30/2024 11:00:13
--- OUTSIDE RECORDS SUMMARY | 2025-01-11 15:05 | XMS_ITS | Encounter Summary ---
Author Organization [employer] Address [address] [facility] 7t [place] [address] Care Team Providers Care Armoring Machine Operator Name Role Phone Kay Dennis Primary Care Provider [phone]- [phone] Mariya Juan MD Primary Care Pro vider Reason for Visit * Reason Onset Date Comments Durable Medical Equipment 02/25/2023 Encounter Details Date Type Department Care Team (Late st Contact Info) Description 02/25/2023 Telephone [facility] MEDICINE [address] [place] [phone] Kay Dennis FNP [address] [place] [address] Dept [place] [address] Durable Medical Equipment Social History Tobacco Use [...] If any questions please contact Tammy at [phone] documented in this encounter Plan of Treatment Not on file documented as of this encounter Visit Diagnoses Not on filedocumented in this encounter Care Teams Armoring Machine Operator Relationship Specialty Start Date End Date Kay Dennis FNP PCP - General Family Medicine 07/05/22 04/27/23 Mariya Juan MD [address] [place] [phone] PCP - General Internal Medicine 04/28/23 documented as of this encounter
--- OUTSIDE RECORDS SUMMARY | 2025-01-11 15:05 | XMS_ITS | Clinical Summary ---
Author Organization [facility] Address [address] [facility] [address] [place] [address] Phone Care Team Providers Care Weekday Babysitter Name Role Phone Sharon Baum MD Primary Care Provider [phone] Allergies No known active allergies Medications Buprenorphine [...] to 64 Years) Completed 04/28/2023, 02/17/2013 Insurance [facility] ([id number]) [facility] ([id number]) DENIS ERNANDEZ [phone] Care Teams Weekday Babysitter Relationship Specialty Start Date End Date Sharon Baum MD [address] [place] [address] PCP - General Internal Medicine 10/20/22
--- OUTSIDE RECORDS SUMMARY | 2025-01-11 15:05 | XMS_ITS | Encounter Summary ---
Author Organization [employer] Address [address] [facility] 7t [place] [address] Care Team Providers Care Applied Behavior Specialist Name Role Phone Mariya Juan MD Primary Care Pro vider Encounter Details Date Type Department Care Team ([facility] st Contact Info) Description 01/08/2025 Orders Only [facility] MEDICINE [address] [place], [place] [phone] Yanira Lei MD 230 [place], [place] [phone] Hx of prosthetic mitral valve Social History Tobacco Use Types Packs/Day Years [...] 10:15 AM EDT Sexual Orientation Straight 07/24/2024 2 :31 PM EDT documented as of this encounter Plan of Treatment Not on file documented as of this encounter Visit Diagnoses Diagnosis Hx of prosthetic mitral valve documented in this encounter Additional Health Concerns Assessment Noted Time PHQ-9 Depression Total Score: 12 024 2:22 PM EDT documented as of this encounter Care Teams Applied Behavior Specialist Relationship Specialty Start Date End Date Mariya Juan MD [address] [place] [address] PCP - General Internal Medicine 04/28/23 documented as of this encounter
--- OUTSIDE RECORDS SUMMARY | 2025-01-11 15:05 | XMS_ITS | Encounter Summary ---
Author Organization [employer] Address 75 [facility] 7 [place] [address] Care Team Providers Care Shoes Salesperson Name Role Phone Mariya Juan MD Primary Care Pro vider Reason for Visit * Reason Onset Date Comments Med Refill 04/20/2024 Encounter Details Date Type Department Care Team ([facility] st Contact Info) Description 04/20/2024 Telephone [facility] MEDICINE 230 [place], [place] [phone] Mariya Juan MD 230 [place] [address] Med Refill Social History Tobacco Use Types [...] PM EDT Received call from Freida from [facility] cou[facility]. Pt back today for recheck, [...] 04/20/2024 4:01 PM EDT TC placed to [facility] Anticoagulation to inquire when pt last got INR drawn. According to the customer relations representative the pt was to come for a [...] solution prefilled syringe [facility] be [id number] [address] [facility] documented in this encounter Plan of Treatment Not on file documented as of this encounter Visit Diagnoses Not on filedocumented in this encounter Additional Health Concerns Assessment Noted Time PHQ-9 Depression Total Score: 04/28/20 23 2:32 PM EDT documented as of this encounter Care Teams Shoes Salesperson Relationship Specialty Start Date End Date Mariya Juan MD [address] [place] [phone] PCP - General Internal Medicine 04/28/23 documented as of this encounter
--- OUTSIDE RECORDS SUMMARY | 2025-01-11 15:05 | XMS_ITS | Encounter Summary ---
Author Organization [employer] Address [address] [place] [address] 7t [place] [address] Care Team Providers Care Land Leveler Name Role Phone Kay Dennis Primary Care Provider [phone] Mariya Juan MD Primary Care Pro vider Encounter Details Date Type Department Care Team (Late st Contact Info) Description 02/09/2023 Telephone [facility] MEDICINE [address] [place] [phone] Kay Dennis FNP [address] [place] [address] Dept [place] [address] Social History Tobacco Use Types Packs/Day Years [...] on filedocumented in this encounter Care Teams Land Leveler Relationship Specialty Start Date End Date Kay Dennis FNP PCP - General Family Medicine 07/05/22 04/27/23 Mariya Juan MD [address] [place] [address] PCP - General Internal Medicine 04/28/23 documented as of this encounter
--- OUTSIDE RECORDS SUMMARY | 2025-01-11 15:05 | XMS_ITS | Clinical Summary ---
Author Organization [employer] Address [address] [place] [address] 7t [place] [address] Care Team Providers Care Life Skills Worker Name Role Phone Mariya Juan MD [...] the future. 60 tablet 3 024 Active sodium chloride ([place]) 0.65 % nasal spray Administer 1 spray [...] THE WEEK. 60 tablet 2 025 Active Enoxaparin Sodium (Lovenox) 100 MG/ML solution prefilled syringeIndication s:Hx of prosthetic mitral valve Inject 1 mL (100 mg) under the skin 2 times daily. lovenox to be given if INR is 2.0 or less and can be stopped once INR is 2.5 or more 14 mL 2 03/04/2 025 Active Blood Pressure kit 1 each 2 times daily. 1 kit 024 2024 Enoxaparin Sodium (Lovenox) 100 MG/ML solution prefilled syringeIndication s:Hx of prosthetic mitral valve Inject 1 mL under the skin 2 times daily. lovenox to be given if INR is 2.0 or less and can be stopped once INR is 2.5 or more 14 mL 2 024 2024 Discontinued(R eorder (will not trigger notification to Pharmacy)) warfarin (Coumadin) 7.5 MG tabletIndications :Mechanical heart [...] weakness 04/28/2023 Overview (04/28/2023): Was seen at [facility] on 08/17/22 with noted nausea, diaphoresis in exam room, discomfort, profound fatigue, referred to [facility] ED now. Went to [facility] ED on 08/18/22 and was admitted for infection and started antibiotics. Blood cultures on 08/18/22 and 08/20/22 grew MSSA. 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 Plan was to transfer [facility]. Transferred to [facility] on 08/21/22 for further management of infective [...] bleed improving Has PT in home through [facility]. 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 Went to [facility] ED on 08/18/22 and was admitted for infection and started antibiotics. Blood cultures on 08/18/22 and 08/20/22 grew MSSA. 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 Plan was to transfer [facility]. Transferred to [facility] on 08/21/22 for further management of infective [...] endocarditis 11/03/2022 Overview (04/28/2023): Was seen at [facility] on 08/17/22 with noted nausea, diaphoresis in exam room, discomfort, profound fatigue, referred to [facility] ED now. Went to [facility] ED on 08/18/22 and was admitted for infection and started antibiotics. Blood cultures on 08/18/22 and 08/20/22 grew MSSA. 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 Plan was to transfer [facility]. Transferred to [facility] on 08/21/22 for further management of infective [...] Encounters Date Type Department Care Team Description 01/08/2025 Orders Only [facility] MEDICINE [address] [place] [address] Yanira Lei MD Hx of prosthetic mitral valve 01/08/2025 Telephone [facility] MEDICINE [address] [place] [address] Mariya Juan MD Med Refill 01/07/2025 Telephone [facility] [address] [place] [address] Mariya Juan MD critical lab 12/23/2024 Refill [facility] [address] [place] [address] Mariya Juan MD Mechanical heart valve present 12/19/2024 Orders Only GENERIC EXTERNAL DATA DEPARTMENT Provider, Generic External Data 12/10/2024 Refill [facility] [address] [place] [address] Mariya Juan MD Mild intermittent asthma without complication 12/07/2024 Orders Only GENERIC EXTERNAL DATA DEPARTMENT Provider, Generic External Data 11/30/2024 Telephone [facility] [address] [place] [address] Mariya Juan MD Medication Question 11/30/2024 Telephone [facility] [address] [place] [address] Lyndsay Badillo [place] Samira Recall 11/23/2024 Orders Only GENERIC EXTERNAL DATA DEPARTMENT Provider, Generic External Data 11/21/2024 Refill [facility] [address] [place] [address] Mariya Juan MD Constipation, unspecified constipation type 11/19/2024 Orders Only GENERIC EXTERNAL DATA DEPARTMENT Provider, Generic External Data 11/09/2024 Orders Only GENERIC EXTERNAL DATA DEPARTMENT Provider, Generic External Data 11/01/2024 Orders Only GENERIC EXTERNAL DATA DEPARTMENT Provider, Generic External Data 10/26/2024 Telephone [facility] [address] [place] [address] Mariya Juan MD 10/26/2024 Orders Only GENERIC EXTERNAL DATA DEPARTMENT Provider, Generic External Data 10/25/2024 Telephone [facility] [address] [place] [address] Mariya Juan MD Chart Prep 10/23/2024 Refill [facility] [address] [place] [address] Mariya Juan MD Anxiety state 10/15/2024 Telephone [facility] [address] [place] [address] Sheree Davidson RN Hospital Follow-up from Last 3 Months Immunizations Name Administration Dates Next Due DTaP 07/18/1989, 7,12/20/1986,11/19 Hep B, Adolescent or Pediatric 12/10/1998,1997,1998 Hib ([facility]) 10/20/1987 Influenza injectable quadriv alent IIV4 with [...] [facility] Routine 10/26/2024 11:48 AM EST HEPATITIS C AB W/REFL TO [...] included. Protime 33.0(H) 11.1 - 13.5 sec [facility] 12/19/2024 2:04 PM EST 12/19/2024 2:06 PM EST us Generic External Data Provider LAB BLOOD ORDERAB LES Final Result [facility] [address] [place] [phone] * (ABNORMAL) ~PT, ~INR - ANTI COAG CLINIC (12/19/2024 2:04 PM EST) Only the most recent of7 resultswithin the time period is included. Pathologist [facility] Prothrombin Time INR 2.8(H) 0.9 - 1.1 [facility] Comment:METER #: [id number] TERNATIONAL NORMALIZED RATIO (INR) REFERENCE RANGES Reference [...] PM EST 12/19/2024 2:06 PM EST us barcoo External Data Provider LAB BLOOD ORDERAB LES Final Result Performing Organization Address [facility]/ZIP Co de Phone Number [facility] [address] [place] [phone] * Hepatitis C Antibody with Reflex to HCV, RNA, Quantitative, Real-Time PCR (09/14/2024 4:32 PM EST) [facility] Hepatitis C Antibody Nonreactive Nonreactive [facility] Comment:Antibodies to HCV no t detected; does not exclude early acuteHCV infection. Blood Venous blood specimen / Unknown 09/14/2024 4:32 PM EST 09/14/2024 6:05 PM EST us Mariya Cho MD LAB BLOOD ORDERAB LES Final Result Performing Organization Address [facility]/ZIP Co de Phone Number [facility] [address] [place] [phone] * HIV-1/2 Antigen and Antibodies, Fourth Generation, with Reflexes (09/14/2024 4:32 PM EST) [facility] HIV AB/AG Nonreactive Nonreactive [facility] Comment:HIV-1 p24 Ag and/or HIV-1/HIV-2 Ab not detected.A test result that is nonreactive does not exclude thepossibility of exposure to or infection with HIV-1 and/orHIV-2. Nonreactive results in this assay for individualswith prior exposure to HIV-1 and/or HIV-2 may be due toantigen and antibody levels that are below the limit ofdetection of this assay.The [employer] HIV Ag/Ab Combo assay result andsupplemental assay results should be interpreted inconjunction with the patient's clinical presentation,history and other laboratory results. If the results areinconsistent with clinical evidence, additional testing issuggested to confirm the result. Blood Venous blood specimen / Unknown 09/14/2024 4:32 PM EST 09/14/2024 6:05 PM EST us Mariya Cho MD LAB BLOOD ORDERAB LES Final Result [facility] [address] [place] [phone] * (ABNORMAL) Lipid Panel, Standard (09/14/2024 4:23 PM EST) Triglycerides 194(H) <150 mg/dL [facility] Comment:Desirable Triglyceri de: less than 150 mg/dLBorderline High Triglyceride 150-199 mg/dLHigh Triglyceride: 200-499 mg/dLVery High Triglyceride: greater than or equal to 5OO mg/dL Cholesterol 131 <200 mg/dL [facility] Comment:Desirable Cholestero l: less than 200 mg/dLBorderline High Cholesterol: 200-239 mg/dLHigh Cholesterol: greater than 239 mg/dL LDL Cholesterol Calculated 62 <100 mg/dL [facility] Comment:Desirable LDL: less than 100 mg/dLNear Optimal/Above Optimal LDL: 110- 129 mg/dLBorderline High LDL: 130-159 mg/dLHigh LDL: 160-189 mg/dLVery High LDL: greater than or equal to 190 mg/dL HDL Cholesterol 31(L) >40 mg/dL [facility] Comment:Desirable HDL: great er than 40 mg/dL Note: This HDL assay may give artificially low results in patients with liver disease. Blood Venous blood specimen / Unknown 09/14/2024 4:23 PM EST 09/14/2024 6:05 PM EST Mariya Cho MD LAB BLOOD ORDERAB LES Final Result [facility] [address] [place] [address] [phone] from Last 3 Months or Most Recently Relevant to Health Maintenance Insurance - [employer] Care Teams Life Skills Worker Relationship Specialty Start Date End Date Mariya Juan MD [address] [place] [address] PCP - General Internal Medicine 04/28/23
--- OUTSIDE RECORDS SUMMARY | 2025-01-11 15:05 | XMS_ITS | Encounter Summary ---
Author Organization [employer] Address [address] [place] [address] 7t [place] [address] Care Team Providers Care Supervisor Opening And Picking Name Role Phone Kay Dennis NOVELTY CHAIN MAKER Primary Care Provider [phone]- [phone] Mariya Juan MD Primary Care Pro vider Encounter Details Date Type Department Care Team (Late st Contact Info) Description 01/17/2023 Telephone [facility] MEDICINE [address] [place] [phone] Kay Dennis NOVELTY CHAIN MAKER [address] [place] [address] Dept [place] [address] Social History Tobacco Use Types Packs/Day Years [...] dosing. Please call her to advised at [phone]. documented in this encounter Plan of Treatment Not on file documented as of this encounter Visit Diagnoses Not on filedocumented in this encounter Care Teams Supervisor Opening And Picking Relationship Specialty Start Date End Date Kay Dennis FNP PCP - General Family Medicine 07/05/22 04/27/23 Mariya Juan MD [address] [place] [address] PCP - General Internal Medicine 04/28/23 documented as of this encounter
== END 2025-01-11 13:51 | disposition home or self-care (01) ==
LOC: HO.ACS 13:28
PROVIDERS: Visit Provider Internal Medicine
DX: Z79.01 Long term (current) use of anticoagulants (principal)

== ENCOUNTER → 2025-01-11 13:28 | Outpatient (BNVA) | payer OTHER, SELFPAY | PROVIDERS: Visit Provider Internal Medicine | DX: Z95.2 Presence of prosthetic heart valve (principal); Z79.01 Long term (current) use of anticoagulants; Z51.81 Encounter for therapeutic drug level monitoring | CPT/HCPCS: 85610; 99211 ==

== ENCOUNTER 2025-01-28 14:02 | Outpatient (REF) | payer OTHER, SELFPAY ==
[2025-01-28 14:35] LABS: Prothrombin Time 58.1 SEC (10.9-12.4)
== END 2025-01-28 14:03 | disposition home or self-care (01) ==
LOC: HO.LAB 14:02
PROVIDERS: Visit Provider Internal Medicine Medical Oncology
DX: Z79.01 Long term (current) use of anticoagulants (principal)
CPT/HCPCS: 36415; 85610; 99212

== ENCOUNTER 2025-01-28 14:02 | Outpatient (AMB) | payer OTHER, SELFPAY ==
[2025-01-28 14:09] LABS: Prothrombin Time Whole Bld POC 61.2 sec (11.1-13.5); ~PT, ~INR - Anti Coag Clinic 5.1 (0.9-1.1)
--- NOTE | 2025-01-28 14:45 | MHC.OFFVISCO ---
Intake Intake Visit Reasons: Anticoagulation Allergies hydrocodone [From VICODIN] Allergy (Unknown, Verified 01/28/25 14:04) GI UPSET Medication List - Last Reconciled 01/28/25 by Kayla Alvarez, JOLENE acetaminophen 325 mg PO QID PRN 7 days acetaminophen ER (Tylenol Arthritis Pain) 1,300 mg PO Q8H PRN albuterol sulfate 90 mcg/actuation (ProAir HFA) 2 puffs inhalation Q4-6H PRN atorvastatin 20 mg PO DAILY blood pressure test kit-large As directed buprenorphine-naloxone 8-2 mg (Suboxone) 1 film sublingual BID celecoxib (Celebrex) 200 mg PO DAILY PRN coenzyme Q10 (Co Q-10) PO fluticasone propionate 50 mcg/actuation sprays intranasal hydroxyzine pamoate 25 mg PO TID inhalational spacing device ([employer] [facility] spacer) As directed loratadine 10 mg PO DAILY melatonin 5 mg PO BEDTIME omeprazole 20 mg PO DAILY ondansetron 4 mg PO Q8H PRN 4 days ondansetron HCl 4 mg PO Q8H PRN polyethylene glycol 3350 (Miralax) 17 grams PO DAILY sodium chloride 0.65% (Deep Sea Nasal) sprays intranasal warfarin 7.5 mg See Protocol PO 2XW warfarin 10 mg See Protocol PO 5XW Nursing Note INR: 5.4 by POC.??Out of therapeutic range of 2.5-3.5 Pt sent to lab for venous draw to verify. venous result: 5.0 Could not determine reason why INR high Medications and supplements reviewed Patient status: feels well Medications or supplements: no changes Diet: usual diet for pt Denies any signs and symptoms of bleeding or clotting or unusual bruising Bleeding, bruising, clotting discussed Nutritional guidance given: pt will have a serving of spinach today Dose: hold today's dose of 7.5mg then decrease tomorrow's dose to 5mg (7.5mg) then usual dose of 7.5mg the next 2 days then return for retest F/U INR Date : 02/01/25?? Patient verbalizing understanding of instructions with read back given T/C to PCP Dr Teague at [facility]. Spoke to Regina. Reported critical INR of 5.0 with dosing plan and next retest date. 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
== END 2025-01-28 15:18 | disposition home or self-care (01) ==
LOC: HO.ACS 14:02
PROVIDERS: Visit Provider Internal Medicine Medical Oncology
DX: Z79.01 Long term (current) use of anticoagulants (principal)

== ENCOUNTER 2025-02-01 10:27 | Outpatient (AMB) | payer OTHER, SELFPAY ==
--- NOTE | 2025-02-01 10:38 | MHC.OFFVISCO ---
Intake Intake Visit Reasons: Anticoagulation Allergies hydrocodone [From VICODIN] Allergy (Unknown, Verified 02/01/25 10:29) GI UPSET Medication List - Last Reconciled 02/01/25 by Kayla Alvarez RN acetaminophen 325 mg PO QID PRN 7 days acetaminophen ER (Tylenol Arthritis Pain) 1,300 mg PO Q8H PRN albuterol sulfate 90 mcg/actuation (ProAir HFA) 2 puffs inhalation Q4-6H PRN atorvastatin 20 mg PO DAILY blood pressure test kit-large As directed buprenorphine-naloxone 8-2 mg (Suboxone) 1 film sublingual BID celecoxib (Celebrex) 200 mg PO DAILY PRN coenzyme Q10 (Co Q-10) PO fluticasone propionate 50 mcg/actuation sprays intranasal hydroxyzine pamoate 25 mg PO TID inhalational spacing device (Mobileumber Pascale [facility] spacer) As directed loratadine 10 mg PO DAILY melatonin 5 mg PO BEDTIME omeprazole 20 mg PO DAILY ondansetron 4 mg PO Q8H PRN 4 days ondansetron HCl 4 mg PO Q8H PRN polyethylene glycol 3350 (Miralax) 17 grams PO DAILY sodium chloride 0.65% (Deep Sea Nasal) sprays intranasal warfarin 7.5 mg See Protocol PO 2XW warfarin 10 mg See Protocol PO 5XW Nursing Note INR: 2.1 out of therapeutic range of 2.5-3.5 Previously 5.0. Medications and supplements reviewed No changes in health, diet, medications, or supplements, Denies any signs and symptoms of bleeding or bruising or clotting. Bleeding, bruising, clotting discussed Nutritional guidance given Dose: increase today's dose to 11.25mg (1 1/2 of the 7.5mg tab) then resume usual dose of 7.5mg X 6 days and 3.75mg X 1 day F/U INR: 1 week Patient verbalizes understanding of instructions given Anti-Coag Initial Assessment Social Hx Patient Tobacco Use Status: Former Tobacco user Tobacco use type: Cigarette alcohol intake: never Alcohol intake frequency: does not drink Coding Level of Care Code Est Patient Level 1 Diagnoses Current use of anticoagulant therapy Z79.01 Results AMB INR Fingerstick AMB INR Fingerstick 2.1 Last Edit by Kayla Alvarez RN on 02/01/25 10:36 interface delay Assessment & Plan Assessment & Plan (1) Current use of anticoagulant therapy: Code(s): 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
[2025-02-01 10:45] LABS: ~PT, ~INR - Anti Coag Clinic 2.1 (0.9-1.1)
== END 2025-02-01 10:50 | disposition home or self-care (01) ==
LOC: HO.ACS 10:27
PROVIDERS: Visit Provider Internal Medicine Medical Oncology
DX: Z79.01 Long term (current) use of anticoagulants (principal)

== ENCOUNTER → 2025-02-01 10:27 | Outpatient (BNVA) | payer OTHER, SELFPAY | PROVIDERS: Visit Provider Internal Medicine Medical Oncology | DX: Z95.2 Presence of prosthetic heart valve (principal); Z79.01 Long term (current) use of anticoagulants; Z51.81 Encounter for therapeutic drug level monitoring | CPT/HCPCS: 85610; 99211 ==

== ENCOUNTER 2025-02-07 10:07 | Outpatient (AMB) | payer OTHER, SELFPAY ==
[2025-02-07 10:21] LABS: Prothrombin Time Whole Bld POC 46.6 sec (11.1-13.5); ~PT, ~INR - Anti Coag Clinic 3.9 (0.9-1.1)
--- NOTE | 2025-02-07 10:29 | MHC.OFFVISCO ---
Intake Intake Visit Reasons: Anticoagulation Allergies hydrocodone [From VICODIN] Allergy (Unknown, Verified 02/07/25 10:14) GI UPSET Medication List - Last Reconciled 02/07/25 by Grace Mccloud RN acetaminophen 325 mg PO QID PRN 7 days acetaminophen ER (Tylenol Arthritis Pain) 1,300 mg PO Q8H PRN albuterol sulfate 90 mcg/actuation (ProAir HFA) 2 puffs inhalation Q4-6H PRN atorvastatin 20 mg PO DAILY blood pressure test kit-large As directed buprenorphine-naloxone 8-2 mg (Suboxone) 1 film sublingual BID celecoxib (Celebrex) 200 mg PO DAILY PRN coenzyme Q10 (Co Q-10) PO fluticasone propionate 50 mcg/actuation sprays intranasal hydroxyzine pamoate 25 mg PO TID inhalational spacing device (OptiChamber Pascale [facility] spacer) As directed loratadine 10 mg PO DAILY melatonin 5 mg PO BEDTIME PRN omeprazole 20 mg PO DAILY ondansetron 4 mg PO Q8H PRN 4 days ondansetron HCl 4 mg PO Q8H PRN polyethylene glycol 3350 (Miralax) 17 grams PO DAILY sodium chloride 0.65% (Deep Sea Nasal) sprays intranasal warfarin 7.5 mg See Protocol PO 2XW warfarin 10 mg See Protocol PO 5XW Nursing Note INR 3.9 out of therapeutic range Medications and supplements reviewed Patient status: INR Has been labile - enc consistent diet , perhaps to eat broccoli instead of spinach Medications or supplements: no changes Diet: good Denies any signs and symptoms of bleeding or clotting or unusual bruising Bleeding, bruising, clotting discussed Nutritional guidance given: greens today- but do not over compensate Dose: keep same - f/u 1 week F/U INR Date: weekly until INR stable? Patient verbalizing understanding of instructions given with read back. Anti-Coag Initial Assessment Social Hx Patient Tobacco Use Status: Former Tobacco user Tobacco use type: Cigarette alcohol intake: never Alcohol intake frequency: does not drink Coding Level of Care Code Est Patient Level 1 Diagnoses Current use of anticoagulant therapy Z79.01 Assessment & Plan Assessment & Plan (1) Current use of anticoagulant therapy: Code(s): 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
--- OUTSIDE RECORDS SUMMARY | 2025-02-07 10:54 | XMS_ITS | Clinical Summary ---
Author Organization [employer] Address [address] [place] [address] 7t [place] [address] Care Team Providers Care Personnel Clerk Name Role Phone Mariya Juan MD [...] 60 tablet 3 024 Active sodium chloride (Bloxom) 0.65 % nasal spray Administer 1 spray into each nostril if needed for congestion. 15 mL 2 024 2024 Active atorvastatin (Lipitor) 20 MG tabletIndications :Mixed hyperlipidemia Take 1 tablet (20 mg) by mouth Once per day. 30 tablet 3 024 2024 Active polyethylene glycol, PEG, 3350 (MiraLax) 17 [...] is 2.5 or more 14 mL 2 025 Active hydrOXYzine pamoate (Vistaril) 25 MG capsuleIndication s:Anxiety state TAKE 1 CAPSULE BY MOUTH EVERY 8 HOURS NEEDED FOR ANXIETY 90 capsule 1 03/21/2 025 Active hydrOXYzine pamoate (Vistaril) 25 MG capsuleIndication s:Anxiety state TAKE 1 CAPSULE BY MOUTH EVERY 8 HOURS NEEDED FOR ANXIETY 90 capsule 1 024 2024 Discontinued Active Problems Problem Noted Date Diagnosed Date Obesity 07/24/2024 Onychomycosis 07/24/2024 Movement disorder 07/24/2024 Attention deficit hyperactiv ity disorder (ADHD), predominantly hyperactive type 07/24/2024 Loud snoring 07/24/2024 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 Went to [facility] on 08/18/22 and was admitted for infection and started antibiotics. Blood cultures on 08/18/22 and 08/20/22 grew MSSA. 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 Plan was to transfer [facility]. Transferred to [facility] on 08/21/22 for further management of infective [...] bleed improving Has PT in home through [facility]. 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 Went to [facility] on 08/18/22 and was admitted for infection and started antibiotics. Blood cultures on 08/18/22 and 08/20/22 grew MSSA. 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 Plan was to transfer [facility]. Transferred to [facility] on 08/21/22 for further management of infective [...] endocarditis 11/03/2022 Overview (04/28/2023): Was seen at [facility] on 08/17/22 with noted nausea, diaphoresis in exam room, discomfort, profound fatigue, referred to [facility] now. Went to [facility] on 08/18/22 and was admitted for infection and started antibiotics. Blood cultures on 08/18/22 and 08/20/22 grew MSSA. 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 Plan was to transfer [facility]. Transferred to [facility] on 08/21/22 for further management of infective [...] Encounters Date Type Department Care Team Description 01/28/[address] [facility] PEDI[facility] [address] [place] [phone] Mariya Juan MD Critical Lab 01/25/[address] [facility] MED[facility] [address] [place] [address] Daphnie Vann MD Anxiety state 01/08/2025 Orders Only [facility] [address] [place] [address] Yanira Lei MD Hx of prosthetic mitral valve 01/08/[address] [facility] [address] [place] [address] Mariya Juan MD Med Refill 01/07/[address] [facility] [address] [place] [address] Mariya Juan MD critical lab 12/23/[address] [facility] [address] [place] [address] Mariya Juan MD Mechanical heart valve present 12/19/2024 Orders Only GENERIC EXTERNAL DATA DEPARTMENT Provider, Generic External Data 12/10/2024 Refill [facility] [address] [place], [place] [phone] Maryia Juan MD Mild intermittent asthma without complication 12/07/2024 Orders Only GENERIC EXTERNAL DATA DEPARTMENT Provider, Generic External Data 11/30/[address] [facility] [address] [place] [address] Mariya Juan MD Medication Question 11/30/2024 Telephone [facility] [address] [place] [address] Lyndsay Badillo [place] Samira Recall 11/23/2024 Orders Only GENERIC EXTERNAL DATA DEPARTMENT Provider, Generic External Data 11/21/[address] [facility] [address] [place] [address] Mariya Juan MD Constipation, unspecified constipation type 11/19/2024 Orders Only GENERIC EXTERNAL DATA DEPARTMENT Provider, Generic External Data 11/09/2024 Orders Only GENERIC EXTERNAL DATA DEPARTMENT Provider, Generic External Data from Last 3 Months Immunizations Name Administration Dates Next Due DTaP 07/18/1989, 7,12/20/1986,11/19 Hep B, Adolescent or Pediatric 12/10/1998,1997,1998 Hib (HbOC) 10/20/1987 Influenza injectable quadriv alent IIV4 with preservative 07/23/2019,12/18/2015 Influenza injectable quadriv alent preservative free 11/10/2020,11/02/2018 Influenza, IIV3, injectable 11/10/2020,0 07/23/2019,11/02/2018,12/18,11/05/2009,09/11/2004,09/03/2002 ,09/05/2001 Influenza, seasonal, injecta ble, preservative free 07/24/2024 MMR 09/14/1990,12/20/1986 OPV, Trivalent 07/18/1989, 7,01/21/1986,09/19 Pfizer Covid-19 Vaccine 12+ Bivalent [...] Use Screening 1997 Family Planning (PISQ) 2000 COVID-19 Vaccine ( season) 2024 04/28/2023, 03/17/2022, [...] on patient's age to complete this topic Hepatitis A Vaccines Aged Out No long er eligible based on patient's age to complete [...] [facility] Routine 11/09/2024 10:51 AM EST HEPATITIS C AB W/REFL TO [...] 2:04 PM EST) Only the most recent of5 resultswithin the time period is included. Protime 33.0(H) 11.1 - 13.5 sec [facility] 12/19/2024 2:04 PM EST 12/19/2024 2:06 PM EST Generic External Data Provider LAB BLOOD ORDERAB LES Final Result Performing Organization Address [facility] Co de Phone Number [facility] [address] [place] [phone] * (ABNORMAL) ~PT, ~INR - ANTI COAG CLINIC (12/19/2024 2:04 PM EST) Only the most recent of5 resultswithin the time period is included. [facility] Prothrombin Time INR 2.8(H) 0.9 - 1.1 [facility] Comment:METER #: [id number] TERNATIONAL NORMALIZED RATIO (INR) REFERENCE RANGES Reference [...] ORDERAB LES Final Result Performing Organization Address [facility] Co de Phone Number [facility] [address] [place] [phone] * Hepatitis C Antibody with Reflex to HCV, RNA, Quantitative, Real-Time PCR (09/14/2024 4:32 PM EST) [facility] Hepatitis C Antibody Nonreactive Nonreactive [facility] Comment:Antibodies to HCV no t detected; does not exclude early acuteHCV infection. Blood Venous blood specimen / Unknown 09/14/2024 4:32 PM EST 09/14/2024 6:05 PM EST us Mariya Cho MD LAB BLOOD ORDERAB LES Final Result Performing Organization Address City/[facility]/ZIP Co de Phone Number [facility] [address] [place] [phone] * HIV-1/2 Antigen and Antibodies, Fourth Generation, with Reflexes (09/14/2024 4:32 PM EST) HIV AB/AG Nonreactive Nonreactive [facility] Comment:HIV-1 p24 Ag and/or HIV-1/HIV-2 Ab not detected.A test result that is nonreactive does not exclude thepossibility of exposure to or infection with HIV-1 and/orHIV-2. Nonreactive results in this assay for individualswith prior exposure to HIV-1 and/or HIV-2 may be due toantigen and antibody levels that are below the limit ofdetection of this assay.The [employer] HIV Ag/Ab Combo assay result andsupplemental assay results should be interpreted inconjunction with the patient's clinical presentation,history and other laboratory results. If the results areinconsistent with clinical evidence, additional testing issuggested to confirm the result. Blood Venous blood specimen / Unknown 09/14/2024 4:32 PM EST 09/14/2024 6:05 PM EST us Mariya Cho MD LAB BLOOD ORDERAB LES Final Result Performing Organization Address City/[facility]/ZIP Co de Phone Number [facility] [address] [place] [phone] * (ABNORMAL) Lipid Panel, Standard (09/14/2024 4:23 PM EST) Triglycerides 194(H) <150 mg/dL [facility] Comment:Desirable Triglyceri de: less than 150 mg/dLBorderline High Triglyceride 150-199 mg/dLHigh Triglyceride: 200-499 mg/dLVery High Triglyceride: greater than or equal to 5OO mg/dL Cholesterol 131 <200 mg/dL [facility] Comment:Desirable Cholestero l: less than 200 mg/dLBorderline High Cholesterol: 200-239 mg/dLHigh Cholesterol: greater than 239 mg/dL LDL Cholesterol Calculated 62 <100 mg/dL [facility] Comment:Desirable LDL: less than 100 mg/dLNear Optimal/Above Optimal LDL: 110- 129 mg/dLBorderline High LDL: 130-159 mg/dLHigh LDL: 160-189 mg/dLVery High LDL: greater than or equal to 190 mg/dL HDL Cholesterol 31(L) >40 mg/dL [facility] Comment:Desirable HDL: great er than 40 mg/dL Note: This HDL assay may give artificially low results in patients with liver disease. Blood Venous blood specimen / Unknown 09/14/2024 4:23 PM EST 09/14/2024 6:05 PM EST Mariya Cho MD LAB BLOOD ORDERAB LES Final Result Performing Organization Address City/State/[facility] Co de Phone Number [facility] [address] [place] [phone] from Last 3 Months or Most Recently Relevant to Health Maintenance [place] [address] [place] [address] - [employer] Care Teams Personnel Clerk Relationship Specialty Start Date End Date Mariya Juan MD [address] [place] [phone] PCP - General Internal Medicine 04/28/23
--- OUTSIDE RECORDS SUMMARY | 2025-02-07 10:54 | XMS_ITS | Encounter Summary ---
Author Organization [employer] Address [address] [place] [address] 7 [place] [address] Care Team Providers Care Spoilage Worker Name Role Phone Mariya Juan MD Primary Care Pro vider Reason for Visit * Reason Onset Date Comments Med Refill 01/08/2025 Encounter Details Date Type Department Care Team ([facility] st Contact Info) Description 01/08/2025 Telephone [facility] MEDICINE [address] [place] [address] Mariya Juan MD [address] [place] [address] Med Refill Social History Tobacco Use Types [...] solution prefilled syringe [id number] [place], [place] [facility] [address] [facility] documented in this encounter Plan of Treatment Not on file documented as of this encounter Visit Diagnoses Not on filedocumented in this encounter Additional Health Concerns Assessment Noted Time PHQ-9 Depression Total Score: 12 024 2:22 PM EDT documented as of this encounter Care Teams Spoilage Worker Relationship Specialty Start Date End Date Mariya Juan MD [address] [place] [address] [phone] PCP - General Internal Medicine 04/28/23 documented as of this encounter
--- OUTSIDE RECORDS SUMMARY | 2025-02-07 10:54 | XMS_ITS | Encounter Summary ---
Author Organization [employer] Address [address] [facility] 7t [place] [address] Care Team Providers Care Verifier Operator Name Role Phone Kay Dennis Primary Care Provider +1- [phone] Mariya Juan MD Primary Care Pro vider Reason for Visit * Reason Onset Date Comments Durable Medical Equipment 02/25/2023 Encounter Details Date Type Department Care Team (Late st Contact Info) Description 02/25/2023 Telephone [facility] MEDICINE [address] [place] [phone] Kay Dennis FNP [address] [place] [address] Dept [place] [address] Durable Medical Equipment Social History Tobacco Use [...] long ago. Please sent to script [email or web address] If any questions please contact Tammy at [phone] documented in this encounter Plan of Treatment Not on file documented as of this encounter Visit Diagnoses Not on filedocumented in this encounter Care Teams Verifier Operator Relationship Specialty Start Date End Date Kay Dennis FNP PCP - General Family Medicine 07/05/22 04/27/23 Mariya Juan MD [address] [place] [phone] PCP - General Internal Medicine 04/28/23 documented as of this encounter
--- OUTSIDE RECORDS SUMMARY | 2025-02-07 10:54 | XMS_ITS | Encounter Summary ---
Author Organization [employer] Address [address] [place] [address] 7t [place] [address] Care Team Providers Care Bioinformatician Name Role Phone Kay Dennis Primary Care Provider +1- [phone] Mariya Juan MD Primary Care Pro vider Encounter Details Date Type Department Care Team (Late st Contact Info) Description 02/09/2023 Telephone [facility] MEDICINE [address] [place] [phone] Kay Dennis FNP [address] [place] [address] Dept [place] [address] Social History Tobacco Use Types Packs/Day Years [...] on filedocumented in this encounter Care Teams Bioinformatician Relationship Specialty Start Date End Date Kay Dennis FNP PCP - General Family Medicine 07/05/22 04/27/23 Mariya Juan MD [address] [place] [phone] PCP - General Internal Medicine 04/28/23 documented as of this encounter
--- OUTSIDE RECORDS SUMMARY | 2025-02-07 10:54 | XMS_ITS | Encounter Summary ---
Author Organization [employer] Address [address] [place] [address] 7t [place] [address] Care Team Providers Care Benefits Counselor Name Role Phone Mariya Juan MD Primary Care Pro vider Reason for Visit * Reason Comments Med Refill Encounter Details Date Type Department Care Team (Late st Contact Info) Description 05/23/2023 Refill [facility] MEDICINE [address] [place] [address] Kay Dennis FNP [address] [place] [address] Dept [place] [address] Social History Tobacco Use Types Packs/Day Years [...] documented as of this encounter Care Teams Benefits Counselor Relationship Specialty Start Date End Date Mariya Juan MD [address] [place] [phone] PCP - General Internal Medicine 04/28/23 documented as of this encounter
--- OUTSIDE RECORDS SUMMARY | 2025-02-07 10:54 | XMS_ITS | Encounter Summary ---
Author Organization [employer] Address [address] [place] [address] 7 [place] [address] Care Team Providers Care Distribution Engineer Name Role Phone Mariya Juan MD Primary Care Pro vider Reason for Visit * Reason Onset Date Comments Med Refill 04/20/2024 Encounter Details Date Type Department Care Team ([facility] st Contact Info) Description 04/20/2024 Telephone [facility] MEDICINE [address] [place], [place] [phone] Mariya Juan MD [address] [place] [address] Med Refill Social History Tobacco Use Types [...] EDT Telephone call placed to Freida at [facility] Coumadin clinic. Gave orders to continue [...] PM EDT Received call from Freida from [facility] coumadin clinic. Pt back today [...] 04/20/2024 4:01 PM EDT TC placed to [facility] Anticoagulation to inquire when pt last got INR drawn. According to the receptionist secretary the pt was to come for a [...] solution prefilled [id number] [address] [facility] documented in this encounter Plan of Treatment Not on file documented as of this encounter Visit Diagnoses Not on filedocumented in this encounter Additional Health Concerns Assessment Noted Time PHQ-9 Depression Total Score: 04/28/20 23 2:32 PM EDT documented as of this encounter Care Teams Distribution Engineer Relationship Specialty Start Date End Date Mariya Juan MD [address] [place] [phone] PCP - General Internal Medicine 04/28/23 documented as of this encounter
--- OUTSIDE RECORDS SUMMARY | 2025-02-07 10:54 | XMS_ITS | Encounter Summary ---
Author Organization [employer] Address [address] [place] [address] 7t [place] [address] Care Team Providers Care Machine Applicator Cementer Name Role Phone Kay Dennis Sofie ROACH Primary Care Provider +1- [phone] Mariya Juan MD Primary Care Pro vider Encounter Details Date Type Department Care Team (Late st Contact Info) Description 12/16/2022 Orders Only [facility] MEDICINE [address] [place] [address] Aida Villegas LPN Social History Tobacco Use [...] EST) Protime 45.7(H) 11.1 - 13.5 sec [facility] 12/16/2022 2:35 PM EST 12/16/2022 2:36 PM EST [facility] External Provider LAB BLO OD ORDERABLES Final Result Performing Organization Address City/[facility] Co de Phone Number [facility] [address] [place] [phone] * (ABNORMAL) ~PT, ~INR - ANTI COAG CLINIC (12/16/2022 2:35 PM EST) Prothrombin Time INR 3.8(H) 0.9 - 1.1 [facility] Comment:METER #: [id number] TERNATIONAL NORMALIZED RATIO (INR) REFERENCE RANGES Reference [...] 2:35 PM EST 12/16/2022 2:36 PM EST [facility] External Provider LAB BLO OD ORDERABLES Final Result Performing Organization Address City/[facility] Co de Phone Number [facility] [address] [place] [phone] documented in this encounter Visit Diagnoses Not on filedocumented in this encounter Care Teams Machine Applicator Cementer Relationship Specialty Start Date End Date Kay Dennis FNP PCP - General Family Medicine 07/05/22 04/27/23 Mariya Juan MD [address] [place] [phone] PCP - General Internal Medicine 04/28/23 documented as of this encounter
--- OUTSIDE RECORDS SUMMARY | 2025-02-07 10:54 | XMS_ITS | Clinical Summary ---
Author Organization [facility] Address [address] [facility] [address] [place] [address] Phone Care Team Providers Care Electric Motor Control Assembler Name Role Phone Sharon Baum MD Primary Care Provider [phone] Allergies No known active allergies Medications Buprenorphine [...] Due Date Last Done Comments Influenza Vaccine (Season Ended) 2025 11/10/2020, 07/23/2019, 11/02/2018, Additional history exists Hepatitis B Vaccine Completed 12/10/1998, 08/14/1998, 1998 Pneumococcal Vaccine: Pediat rics (0 to 5 Years) and At-Risk Patients (6 to 64 Years) Completed 04/28/2023, 02/17/2013 Insurance [facility] ([id number]) [facility] ([id number]) DENIS ERNANDEZ [phone] Care Teams Electric Motor Control Assembler Relationship Specialty Start Date End Date Sharon Baum MD [address] [place] [phone] PCP - General Internal Medicine 10/20/22
--- OUTSIDE RECORDS SUMMARY | 2025-02-07 10:54 | XMS_ITS | Data Portability ---
Author Organization [place] [facility], [facility] Address [address] [facility] [address] [place] [phone] Care Team Providers Care Insurance Marketing Specialist Name Role Phone NAME, KEIRA Primary Care Provider [phone] Assessment Encounter Date Assessment Date Assessment LastModified [...] 50 mcg/actua tion nasal spray,darrin pension 024 [id number], [address] [place], [place], [phone], 15:20:32 Patient TargetsNo targets recorded. Patient InstructionsNo instructions recorded. Reason for Referral None Reported. Problems Name Problem SNOMED Code Status Onset Date Resolution Date Notes Provider Name and Address Organization Details Recorded Time Amygdalolith 4487422 Active 2023 CHANI KIM PA-C [address] [place] [address], [phone], [place] - [facility] 15:18:54 Allergic rhinitis 34640101 Active 2023 CHANI KIM PA-C [address] [place] [address], [phone], [place] - [facility] 15:20:36 Problem Notes None recorded. Procedures Surgical History Date Name Laterality Status Provider Name and Address Organization Details Recorded Time Heart Surgery completed Daphnie Welsh [place] - [facility] 04/11/2024 15:01:33 Imaging Results None recorded. Procedure Notes None recorded. Medical Equipment None Reported. Allergies No known drug allergies Medications Name Sig Start Date Stop Date Status Note LastModified by Organization Details LastModified Time fluticasone propionate 50 mcg/actuation nasal spray,suspens ion SHAKE LIQUID AND USE 2 SPRAYS IN EACH NOSTRIL DAILY 025 active Not Available Not Available Not Avai lable albuterol active Not Available Not Angy ilable Not Available Miralax active Not Available Not Avail able Not Available Vitals Date Recorded Body height Body mass index (BMI) Body weight Provider Name and Address Organization Details Last Updated DateTime 08/30/2024 190.5 cm 30 kg/m2 128532.17 g Nelli Fishman [place] - [facility] 08/30/2024 10:37:44 Date Recorded Body height Body mass index (BMI) Body weight Provider Name and Address Organization Details Last Updated DateTime 04/11/2024 190.5 cm 30 kg/m2 338319.17 g Daphnie Welsh [place] - [facility] 04/11/2024 14:58:50 Social History None recorded. Functional Status None recorded. Mental Status None recorded. Family History Nothing Reported. Medical History No medical history recorded. Past Encounters Encounter ID Performer Location Encounter Start Date Encounter Closed Date Diagnosis/Indication Diagnosis SNOMED-CT Code Diagnosis ICD10 Code Diagnosis Note [id number] CHANI KIM PA-C [facility] [address] [place] [address] 04/11/2024 14:35:25 04/11/2024 15:13:40 Amygdalolith 3028731 J35.8 Allergic rhinitis 916824 04 J30.89 [id number] EDDIE MONTES MD [facility] [address] [place] [address] 08/30/2024 10:28:36 08/30/2024 10:58:17 Amygdalolith 9499566 J35.8 Discourage d surgery. Recommend observatio n. [...] Member ID Guarantor Name 04/11/2024 1 [facility] - DOS ON OR AFTER 2023 - MEDICARE ADVANTAGE [place] (MEDICARE REPLACEMENT/AD VANTAGE - PPO) Ludin Mendes [id number] Ludin Mendes Notes Date Note Type Note [...] not continue it. CHANI KIM PA-C [address], [address], [facility] - [facility] 04/11/2024 15:25:28 08/30/2024 text/html 38-year-old male presents for evaluation of tonsil stones. Bleeding has resolved. He has not been using flonase but finds mouth rinses helpful. He is less bothered than before. EDDIE MONTES MD [address] [place] [address],[address], [address], [facility] - [facility] 08/30/2024 11:00:13
--- OUTSIDE RECORDS SUMMARY | 2025-02-07 10:54 | XMS_ITS | Encounter Summary ---
Author Organization [employer] Address [address] [place] [address] 7t [place] [address] Care Team Providers Care Organic Chemist Name Role Phone Kay Dennis DIGITAL MARKETING SPECIALIST Primary Care Provider [phone] Mariya Juan MD Primary Care Pro vider Encounter Details Date Type Department Care Team (Late st Contact Info) Description 01/17/2023 Telephone [facility] [address] [place] [address] Kay Dennis DIGITAL MARKETING SPECIALIST [address] [place] [address] Dept of [place] [address] Social History Tobacco Use Types Packs/Day Years [...] dosing. Please call her to advised at [phone]. documented in this encounter Plan of Treatment Not on file documented as of this encounter Visit Diagnoses Not on filedocumented in this encounter Care Teams Organic Chemist Relationship Specialty Start Date End Date Kay Dennis FNP PCP - General Family Medicine 07/05/22 04/27/23 Mariya Juan MD [address] [place] [address] PCP - General Internal Medicine 04/28/23 documented as of this encounter
== END 2025-02-07 10:38 | disposition home or self-care (01) ==
LOC: HO.ACS 10:07
PROVIDERS: Visit Provider Internal Medicine Medical Oncology
DX: Z79.01 Long term (current) use of anticoagulants (principal)

== ENCOUNTER → 2025-02-07 10:07 | Outpatient (BNVA) | payer OTHER, SELFPAY | PROVIDERS: Visit Provider Internal Medicine Medical Oncology | DX: Z95.2 Presence of prosthetic heart valve (principal); Z51.81 Encounter for therapeutic drug level monitoring; Z79.01 Long term (current) use of anticoagulants | CPT/HCPCS: 85610; 99211 ==

== ENCOUNTER 2025-02-15 14:44 | Outpatient (AMB) | payer OTHER, SELFPAY ==
[2025-02-15 14:50] LABS: Prothrombin Time Whole Bld POC 55.2 sec (11.1-13.5); ~PT, ~INR - Anti Coag Clinic 4.6 (0.9-1.1)
--- NOTE | 2025-02-15 14:58 | MHC.OFFVISCO ---
Intake Intake Visit Reasons: Anticoagulation Allergies hydrocodone [From VICODIN] Allergy (Unknown, Verified 02/15/25 14:44) GI UPSET Medication List - Last Reconciled 02/15/25 by Grace Mccloud RN acetaminophen 325 mg PO QID PRN 7 days acetaminophen ER (Tylenol Arthritis Pain) 1,300 mg PO Q8H PRN albuterol sulfate 90 mcg/actuation (ProAir HFA) 2 puffs inhalation Q4-6H PRN atorvastatin 20 mg PO DAILY blood pressure test kit-large As directed buprenorphine-naloxone 8-2 mg (Suboxone) 1 film sublingual BID celecoxib (Celebrex) 200 mg PO DAILY PRN coenzyme Q10 (Co Q-10) PO fluticasone propionate 50 mcg/actuation sprays intranasal hydroxyzine pamoate 25 mg PO TID inhalational spacing device (OptiCmyAchyber Pascale [facility] spacer) As directed loratadine 10 mg PO DAILY melatonin 5 mg PO BEDTIME PRN omeprazole 20 mg PO DAILY ondansetron 4 mg PO Q8H PRN 4 days ondansetron HCl 4 mg PO Q8H PRN polyethylene glycol 3350 (Miralax) 17 grams PO DAILY sodium chloride 0.65% (Deep Sea Nasal) sprays intranasal warfarin 7.5 mg See Protocol PO 2XW warfarin 10 mg See Protocol PO 5XW Nursing Note INR 4.6 out of therapeutic range Medications and supplements reviewed Patient status: developed GI distress/ constipation when not taking usual bowel regime, decreased appetite for a day then took miralax and mylanta then had large amt of loose stools, has not had usual greens Medications or supplements: no new meds Diet: will be able to eat now that he had bowel movements Denies any signs and symptoms of bleeding or clotting or unusual bruising Bleeding, bruising, clotting discussed Nutritional guidance given: jessica greens weekly Dose: hold today's dose then resume chk INR wed then possible decrease weekly beckett 3.75mg x 2 days/ 7.5mg x 5 days F/U INR Date : 5 days due to elevated INR ?? Pt advised to seek medical attention with any s/sx of bleeding or headache blurry vision spine aches ( the symptoms he head before with brain bleed) Patient verbalizing understanding of instructions given with read back. Anti-Coag Initial Assessment Social Hx Patient Tobacco Use Status: Former Tobacco user Tobacco use type: Cigarette alcohol intake: never Alcohol intake frequency: does not drink Coding Level of Care Code Est Patient Level 1 Diagnoses Current use of anticoagulant therapy Z79.01 Results AMB INR Fingerstick AMB INR Fingerstick 4.6 Last Edit by Grace Mccloud RN on 02/15/25 14:53 manual entry Assessment & Plan Assessment & Plan (1) Current use of anticoagulant therapy: Code(s): Z79.01 - university controller (current) 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
--- OUTSIDE RECORDS SUMMARY | 2025-02-15 14:58 | XMS_ITS | Encounter Summary ---
Author Organization [facility] Address [address] [place] [address] 7t [place] [address] Care Team Providers Care Web Marketing Specialist Name Role Phone Kay Dennis RESEARCH ASSISTANT MEMBER Primary Care Provider [phone] Mariya Juan MD Primary Care Pro vider Encounter Details Date Type Department Care Team (Late Contact Info) Description 12/16/2022 Orders Only [facility] [address] [place] [phone] Aida Villegas LPN Social History Tobacco Use [...] as of this encounter Plan of Treatment Upcoming Encounters Date Type Department Care Team (Late Contact Info) Description 02/20/2025 2:15 PM EDT Office Visit [facility] [address] [place] [address] Mariya Newsome MD [address] [place] [phone] documented as of this encounter Procedures Procedure Name Priority Date/Time Associated Diagnosis Comments PROTHROMBIN TIME WHOLE BLD POC Routine 12/16/2022 2:35 PM EST ~PT, ~INR - ANTI COAG CLINIC Routine 12/16/2022 2:35 PM EST documented in this encounter Results * (ABNORMAL) PROTHROMBIN TIME WHOLE BLD POC (12/16/2022 2:35 PM EST) Protime 45.7(H) 11.1 - 13.5 sec [facility] 12/16/2022 2:35 PM EST 12/16/2022 2:36 PM EST [facility] External Provider LAB BLO OD ORDERABLES Final Result Performing Organization Address [facility] Co de Phone Number [facility] [address] [place] [phone] * (ABNORMAL) ~PT, ~INR - ANTI COAG CLINIC (12/16/2022 2:35 PM EST) Prothrombin Time INR 3.8(H) 0.9 - 1.1 [facility] Comment:METER #: [id number] TERNATIONAL NORMALIZED RATIO (INR) REFERENCE RANGES Reference [...] 2:35 PM EST 12/16/2022 2:36 PM EST [facility] External Provider LAB BLO OD ORDERABLES Final Result Performing Organization Address [facility] Co de Phone Number [facility] [address] [place] [address] [phone] documented in this encounter Visit Diagnoses Not on filedocumented in this encounter Care Teams Web Marketing Specialist Relationship Specialty Start Date End Date Kay Dennis FNP PCP - General Family Medicine 07/05/22 04/27/23 Mariya Juan MD [address] [place] [address] PCP - General Internal Medicine 04/28/23 documented as of this encounter
--- OUTSIDE RECORDS SUMMARY | 2025-02-15 14:58 | XMS_ITS | Data Portability ---
Author Organization [place] - [facility], All[facility] Address [address] [facility] [address] [place] [phone] Care Team Providers Care Customer Support Technician Name Role Phone NAME, KEIRA Primary Care [...] 50 mcg/actua tion nasal spray,darrin pension 024 [id number], [address] [place], [place], [phone], 15:20:32 Patient TargetsNo targets recorded. Patient InstructionsNo instructions recorded. Reason for Referral None Reported. 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 Procedures Surgical History Date Name Laterality Status Provider Name and Address Organization Details Recorded Time Heart Surgery completed Daphnie Welsh [place] - [facility] 04/11/2024 15:01:33 Imaging Results None recorded. Procedure [...] Updated DateTime 08/30/2024 190.5 cm 30 kg/m2 326321.17 g Nelli Fishman [place] - [facility] 08/30/2024 10:37:44 Date Recorded Body height Body mass index (BMI) Body weight Provider Name and Address Organization Details Last Updated DateTime 04/11/2024 190.5 cm 30 kg/m2 323879.17 g Daphnie Welsh [place] - [facility] 04/11/2024 14:58:50 Social History None recorded. Functional Status None recorded. Mental Status None recorded. Family History Nothing Reported. Medical History No medical history recorded. Past Encounters Encounter ID Performer Location Encounter Start Date Encounter Closed Date Diagnosis/Indication Diagnosis SNOMED-CT Code Diagnosis ICD10 Code Diagnosis Note [id number] CHANI KIM PA-C [facility] [address] [place] [address] 04/11/2024 14:35:25 04/11/2024 15:13:40 Amygdalolith 0542004 J35.8 Allergic rhinitis 317440 04 J30.89 [id number] EDDIE MONTES MD [facility] [address] [place] [address] 08/30/2024 10:28:36 08/30/2024 10:58:17 Amygdalolith 7530613 J35.8 Discourage d surgery. Recommend observatio n. [...] Roberts Member ID Guarantor Name 04/11/2024 1 [facility] - DOS ON OR AFTER 2023 - MEDICARE ADVANTAGE [place] (MEDICARE REPLACEMENT/AD VANTAGE - PPO) Ludin Mendes [id number] Ludin Mendes Notes Date Note Type Note [...] not continue it. CHANI KIM PA-C [address], [address], [facility] - [facility] 04/11/2024 15:25:28 08/30/2024 text/html 38-year-old male presents for evaluation of tonsil stones. Bleeding has resolved. He has not been using flonase but finds mouth rinses helpful. He is less bothered than before. EDDIE MONTES MD [address] [place] [address],[address], [phone], [facility] - [facility] 08/30/2024 11:00:13
--- OUTSIDE RECORDS SUMMARY | 2025-02-15 14:58 | XMS_ITS | Encounter Summary ---
Author Organization [employer] Address [address] [place] [address] 7 [place] [address] Care Team Providers Care Intern Architect Name Role Phone Mariya Juan MD Primary Care Pro vider Reason for Visit * Reason Onset Date Comments Med Refill 04/20/2024 Encounter Details Date Type Department Care Team ([facility] st Contact Info) Description 04/20/2024 Telephone [facility] [address] [place], [place] [phone] Mariya Juan MD [address] [place] [address] Med Refill Social History Tobacco Use Types [...] EDT Telephone call placed to Freida at [facility] Coumadin clinic. Gave orders to continue [...] PM EDT Received call from Freida from [facility] coumadin clinic. Pt back today for recheck, [...] 04/20/2024 4:01 PM EDT TC placed to [facility] Anticoagulation to inquire when pt last got INR drawn. According to the storeroom supervisor the pt was to come for a [...] solution prefilled syringe To be sent to: [id number] [place], [place] - [phone] [facility] documented in this encounter Plan of Treatment Upcoming Encounters Date Type Department Care Team (Late st Contact Info) Description 02/20/2025 2:15 PM EDT Office Visit [facility] [address] [place] [address] Mariya Newsome MD [address] [place] [address] documented as of this encounter Visit Diagnoses Not on filedocumented in this encounter Additional Health Concerns Assessment Noted Time PHQ-9 Depression Total Score: 6 04/28/ 23 2:32 PM EDT documented as of this encounter Care Teams Intern Architect Relationship Specialty Start Date End Date Mariya Juan MD [address] [place] [address] PCP - General Internal Medicine 04/28/23 documented as of this encounter
--- OUTSIDE RECORDS SUMMARY | 2025-02-15 14:58 | XMS_ITS | Clinical Summary ---
Author Organization [employer] Address [address] [place] [address] 7t [place] [address] Care Team Providers Care County Home Demonstration Agent Name Role Phone Mariya Juan MD Primary [...] 60 tablet 3 024 Active sodium chloride ([place]) 0.65 % nasal spray Administer 1 spray [...] weakness 04/28/2023 Overview (04/28/2023): Was seen at [facility] on 08/17/22 with noted nausea, diaphoresis in exam room, discomfort, profound fatigue, referred to [facility] now. Went to [facility] on 08/18/22 and was admitted for infection and started antibiotics. Blood cultures on 08/18/22 and 08/20/22 grew MSSA. 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 Plan was to transfer [facility]. Transferred to [facility] on 08/21/22 for further management of infective [...] bleed improving Has PT in home through [facility]. 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 Went to [facility] on 08/18/22 and was admitted for infection and started antibiotics. Blood cultures on 08/18/22 and 08/20/22 grew MSSA. 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 Plan was to transfer [facility]. Transferred to [facility] on 08/21/22 for further management of infective [...] endocarditis 11/03/2022 Overview (04/28/2023): Was seen at [facility] on 08/17/22 with noted nausea, diaphoresis in exam room, discomfort, profound fatigue, referred to [facility] now. Went to [facility] on 08/18/22 and was admitted for infection and started antibiotics. Blood cultures on 08/18/22 and 08/20/22 grew MSSA. 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 Plan was to transfer [facility]. Transferred to [facility] on 08/21/22 for further management of infective [...] Encounters Date Type Department Care Team Description 02/13/2025 Telephone [facility] [address] [place] [address] Olga Mendes RN Pre-op Exam 01/28/2025 Telephone [facility] [address] [place] [address] Mariya Juan MD Critical Lab 01/25/2025 Refill [facility] [address] [place] [address] Daphnie Vann MD Anxiety state 01/08/2025 Orders Only [facility] [address] [place] [address] Yanira Lei MD Hx of prosthetic mitral valve 01/08/2025 Telephone [facility] [address] [place] [address] Mariya Juan MD Med Refill 01/07/2025 Telephone [facility] [address] [place] [address] Mariya Juan MD critical lab 12/23/2024 Refill [facility] [address] [place] [address] Mariya Juan MD Mechanical heart valve present 12/19/2024 Orders Only GENERIC EXTERNAL DATA DEPARTMENT Provider, Generic External Data 12/10/2024 Refill [facility] [address] [place] [address] Mariya uJan MD Mild intermittent asthma without complication 12/07/2024 Orders Only GENERIC EXTERNAL DATA DEPARTMENT Provider, Generic External Data 11/30/2024 Telephone [facility] [address] [place] [address] Mariya Juan MD Medication Question 11/30/2024 Telephone [facility] [address] [place] [address] Lyndsay Badillo [place] Samira Recall 11/23/2024 Orders Only GENERIC EXTERNAL DATA DEPARTMENT Provider, Generic External Data 11/21/2024 Refill [facility] [address] [place] [address] Mariya Juna MD Constipation, unspecified constipation type 11/19/2024 Orders [...] 07/24/2024 1:44 PM EDT Plan of Treatment Upcoming Encounters Date Type Department Care Team (Late st Contact Info) Description 02/20/2025 2:15 PM EDT Office Visit [facility] [address] [place] [address] Mariya Newsome MD [address] [place] [address] Health Maintenance Due Date Last Done Comments Alcohol/Substance Use Screening 1997 Family Planning (PISQ) 2000 COVID-19 Vaccine ( season) 2024 04/28/2023, 03/17/2022, 02/09/2022 Depression Monitoring 01/21/2025 07/24/2024, 024 Depression Screening 07/24/2025 07/24/2024, 07/24/20 24 SDOH [...] [facility] Routine 11/19/2024 11:19 AM EST HEPATITIS C AB W/REFL TO [...] 2:04 PM EST) Only the most recent of4 resultswithin the time period is included. Protime 33.0(H) 11.1 - 13.5 sec [facility] 12/19/2024 2:04 PM EST 12/19/2024 2:06 PM EST Generic External Data Provider LAB BLOOD ORDERAB LES Final Result Performing Organization Address City/[facility]/ZIP Co de Phone Number [facility] [address] [place] [phone] * (ABNORMAL) ~PT, ~INR - ANTI COAG CLINIC (12/19/2024 2:04 PM EST) Only the most recent of4 resultswithin the time period is included. Pathologist [facility] Prothrombin Time INR 2.8(H) 0.9 - 1.1 [facility] Comment:METER #: [id number] TERNATIONAL NORMALIZED RATIO (INR) REFERENCE RANGES Reference [...] 2:04 PM EST 12/19/2024 2:06 PM EST [employer] External Data Provider LAB BLOOD ORDERAB LES Final Result Performing Organization Address [facility]/ZIP Co de Phone Number [facility] [address] [place] [phone] * Hepatitis C Antibody with Reflex to HCV, RNA, Quantitative, Real-Time PCR (09/14/2024 4:32 PM EST) Pathologist [facility] Hepatitis C Antibody Nonreactive Nonreactive [facility] Comment:Antibodies to HCV no t detected; does not exclude early acuteHCV infection. Blood Venous blood specimen / Unknown 09/14/2024 4:32 PM EST 09/14/2024 6:05 PM EST us Mariya Cho MD LAB BLOOD ORDERAB LES Final Result Performing Organization Address City/[facility]/ZIP Co de Phone Number [facility] [address] [place] [address] [phone] * HIV-1/2 Antigen and Antibodies, Fourth Generation, with Reflexes (09/14/2024 4:32 PM EST) HIV AB/AG Nonreactive Nonreactive [facility] Comment:HIV-1 p24 Ag and/or HIV-1/HIV-2 Ab not detected.A test result that is nonreactive does not exclude thepossibility of exposure to or infection with HIV-1 and/orHIV-2. Nonreactive results in this assay for individualswith prior exposure to HIV-1 and/or HIV-2 may be due toantigen and antibody levels that are below the limit ofdetection of this assay.The [employer] HIV Ag/Ab Combo assay result andsupplemental assay results should be interpreted inconjunction with the patient's clinical presentation,history and other laboratory results. If the results areinconsistent with clinical evidence, additional testing issuggested to confirm the result. Blood Venous blood specimen / Unknown 09/14/2024 4:32 PM EST 09/14/2024 6:05 PM EST us Mariya Cho MD LAB BLOOD ORDERAB LES Final Result Performing Organization Address City/[facility]/ZIP Co de Phone Number [facility] [address] [place] [phone] [phone] * (ABNORMAL) Lipid Panel, Standard (09/14/2024 4:23 PM EST) Triglycerides 194(H) <150 mg/dL [facility] Comment:Desirable Triglyceri de: less than 150 mg/dLBorderline High Triglyceride 150-199 mg/dLHigh Triglyceride: 200-499 mg/dLVery High Triglyceride: greater than or equal to 5OO mg/dL Cholesterol 131 <200 mg/dL [facility] Comment:Desirable Cholestero l: less than 200 mg/dLBorderline High Cholesterol: 200-239 mg/dLHigh Cholesterol: greater than 239 mg/dL LDL Cholesterol Calculated 62 <100 mg/dL [facility] Comment:Desirable LDL: less than 100 mg/dLNear Optimal/Above Optimal LDL: 110- 129 mg/dLBorderline High LDL: 130-159 mg/dLHigh LDL: 160-189 mg/dLVery High LDL: greater than or equal to 190 mg/dL HDL Cholesterol 31(L) >40 mg/dL [facility] Comment:Desirable HDL: great er than 40 mg/dL Note: This HDL assay may give artificially low results in patients with liver disease. Blood Venous blood specimen / Unknown 09/14/2024 4:23 PM EST 09/14/2024 6:05 PM EST us Mariya Cho MD LAB BLOOD ORDERAB LES Final Result [facility] [address] [place] [phone] from Last 3 Months or Most Recently Relevant to Health Maintenance Insurance [facility] Care Teams County Home Demonstration Agent Relationship Specialty Start Date End Date Mariya Juan MD [address] [place] [phone] PCP - General Internal Medicine 04/28/23
--- OUTSIDE RECORDS SUMMARY | 2025-02-15 14:58 | XMS_ITS | Clinical Summary ---
Author Organization [facility] Address [address] [place] [address] Phone Care Team Providers Care Tile Conduit Layer Name Role Phone Sharon Baum MD Primary Care Provider [phone] Allergies No known active allergies Medications Buprenorphine [...] Vaccine Completed 12/10/1998, 08/14/1998, 1998 Pneumococcal Vaccine: Peds ( 0 to 5 Years) and At-Risk Patients (6 to 49 Years) Completed 04/28/2023, 02/17/2013 Insurance [facility] ([id number]) [facility] ([id number]) DENIS ERNANDEZ [id number] Care Teams Tile Conduit Layer Relationship Specialty Start Date End Date Sharon Baum MD [address] [place] [phone] PCP - General Internal Medicine 10/20/22
--- OUTSIDE RECORDS SUMMARY | 2025-02-15 14:58 | XMS_ITS | Encounter Summary ---
Author Organization [facility] Address [address] [place] [address] 7t [place] [address] Care Team Providers Care Lab Support Tech Name Role Phone Mariya Juan MD Primary Care Pro vider Reason for Visit * Reason Comments Med Refill Encounter Details Date Type Department Care Team (Late st Contact Info) Description 05/23/2023 Refill [facility] MEDICINE [address] [place] [address] Kay Dennis FNP [address] [place] [address] Dept [place] [address] Social History Tobacco Use Types Packs/Day Years [...] Office Visit [facility] MED[facility]INE 230 [place] [address] Mariya Newsome MD 230 [place], [place] [phone] documented as of this encounter Visit Diagnoses Not on filedocumented in this encounter Additional Health Concerns Assessment Noted Time PHQ-9 Depression Total Score: 6 04/28/20 23 2:32 PM EDT documented as of this encounter Care Teams Lab Support Tech Relationship Specialty Start Date End Date Mariya Juan MD 230 [place], [place] [phone] PCP - General Internal Medicine 04/28/23 documented as of this encounter
--- OUTSIDE RECORDS SUMMARY | 2025-02-15 14:58 | XMS_ITS | Encounter Summary ---
Author Organization [employer] Address [address] [facility] 7t [place] [address] Care Team Providers Care Pump Erector Helper Name Role Phone Kay Dennis Primary Care Provider [phone] Mariya Juan MD Primary Care Pro vider Reason for Visit * Reason Onset Date Comments Durable Medical Equipment 02/25/2023 Encounter Details Date Type Department Care Team (Late st Contact Info) Description 02/25/2023 Telephone [facility] MEDICINE [address] [place] [phone] Kay Dennis FNP [address] [place] [address] Dept [place] [address] Durable Medical Equipment Social History Tobacco Use [...] 2:09 PM EDT Tc from Tammy with [facility] requesting a script for a Saebo Glove to straighten the pt right hand due to stroke pt had not so long ago. Please sent to script [email or web address] If any questions please contact Tammy at [phone] documented in this encounter Plan of Treatment Upcoming Encounters Date Type Department Care Team (Late st Contact Info) Description 02/20/2025 2:15 PM EDT Office Visit [facility] MEDICINE [address] [place] [address] [phone] Mariya Newsome MD [address] [place] [address] documented as of this encounter Visit Diagnoses Not on filedocumented in this encounter Care Teams Pump Erector Helper Relationship Specialty Start Date End Date Kay Dennis FNP PCP - General Family Medicine 07/05/22 04/27/23 Mariya Juan MD [address] [place] [address] PCP - General Internal Medicine 04/28/23 documented as of this encounter
--- OUTSIDE RECORDS SUMMARY | 2025-02-15 14:58 | XMS_ITS | Encounter Summary ---
Author Organization [employer] Address [address] [place] [address] 7t [place] [address] Care Team Providers Care Athlete Marketing Agent Name Role Phone Kay Dennis PRODUCT ANALYST Primary Care Provider [phone]- [phone] Mariya Juan MD Primary Care Pro vider Encounter Details Date Type Department Care Team (Late st Contact Info) Description 01/17/2023 Telephone [facility] MEDICINE [address] [place] [address] Kay Dennis PRODUCT ANALYST [address] [place] [address] Dept [place] [address] Social History Tobacco Use Types Packs/Day Years [...] dosing. Please call her to advised at [phone]. documented in this encounter Plan of Treatment Upcoming Encounters Date Type Department Care Team (Late st Contact Info) Description 02/20/2025 2:15 PM EDT Office Visit [facility] MEDICINE [address] [place] [address] [phone] Mariya Newsome MD [address] [place] [address] [phone] documented as of this encounter Visit Diagnoses Not on filedocumented in this encounter Care Teams Athlete Marketing Agent Relationship Specialty Start Date End Date Kay Dennis FNP PCP - General Family Medicine 07/05/22 04/27/23 Mariya Juan MD [address] [place] [address] [phone] PCP - General Internal Medicine 04/28/23 documented as of this encounter
--- OUTSIDE RECORDS SUMMARY | 2025-02-15 14:58 | XMS_ITS | Encounter Summary ---
Author Organization [employer] Address [address] [place] [address] 7t [place] [address] Care Team Providers Care Community Relations Advisor Name Role Phone Kay Dennis Primary Care Provider [phone] Mariya Juan MD Primary Care Pro vider Encounter Details Date Type Department Care Team (Late st Contact Info) Description 02/09/2023 Telephone [facility] MEDICINE [address] [place] [phone] Kay Dennis FNP [address] [place] [address] Dept [place] [address] Social History Tobacco Use Types Packs/Day Years [...] Description 02/20/2025 2:15 PM EDT Office Visit [facility] MEDICINE 230 [place] [address] Mariya Newsome MD [address] [place] [address] [phone] documented as of this encounter Visit Diagnoses Not on filedocumented in this encounter Care Teams Community Relations Advisor Relationship Specialty Start Date End Date Kay Dennis FNP PCP - General Family Medicine 07/05/22 04/27/23 Mariya Juan MD [address] [place] [phone] PCP - General Internal Medicine 04/28/23 documented as of this encounter
--- OUTSIDE RECORDS SUMMARY | 2025-02-15 14:58 | XMS_ITS | Encounter Summary ---
Author Organization [employer] Address [address] [facility] 7t [place] [address] Care Team Providers Care Maintenance Analyst Name Role Phone Mariya Juan MD Primary Care Pro vider Reason for Visit * Reason Onset Date Comments Pre-op Exam 02/13/2025 Encounter Details Date Type Department Care Team ([facility] st Contact Info) Description 02/13/[address] [facility] MEDICINE 230 [place], [place] [phone] Olga Mendes, RN 230 [place] [address] Pre-op Exam Social History Tobacco Use Types Packs/Day Years [...] the past 12 months, has t he [employer], gas, oil or water [employer] threatened to shut off services in your [...] Telephone Encounter - Olga Mendes RN - 02/13/2025 11:54 AM EDT Received form from [facility] requesting pt have pre-op prior to dental surgery. Telephone call placed to pt who states date of surgery TBD after clearance. Booked pre-op for 02/20 with Kristopher. Pt agrees with plan. Surgery Details: Surgery: extraction of 3 teeth d/t dental caries Date: TBD Anesthesia: IV sedation EKG: yes Labs: provider's discretion Other: requesting anticoagulation recommendations as pt is on coumadin and whether or not prophylactic Abx are recommended Surgeon: Dr Andrea Rhodes Office documented in this encounter Plan of Treatment Upcoming Encounters Date Type Department Care Team ([facility] st Contact Info) Description 02/20/2025 2:15 PM EDT Office Visit [facility] MEDICINE [address] [place] [phone] Mariya Newsome MD 230 [place], [place] [phone] documented as of this encounter Visit Diagnoses Not on filedocumented in this encounter Additional Health Concerns Assessment Noted Time PHQ-9 Depression Total Score: 12 024 2:22 PM EDT documented as of this encounter Care Teams Maintenance Analyst Relationship Specialty Start Date End Date Mariya Juan MD 230 [place] [address] PCP - General Internal Medicine 04/28/23 documented as of this encounter
--- OUTSIDE RECORDS SUMMARY | 2025-02-15 14:59 | XMS_ITS | Encounter Summary ---
Author Organization [employer] Address [address] [place] [address] 7 [place] [address] Care Team Providers Care Heading Repairer Name Role Phone Mariya Juan MD Primary Care Pro vider Reason for Visit * Reason Onset Date Comments Med Refill 01/08/2025 Encounter Details Date Type Department Care Team ([facility] st Contact Info) Description 01/08/2025 Telephone [facility] MEDICINE 230 [place] [address] Mariya Juan MD 230 [place] [address] Med Refill Social History Tobacco Use Types [...] solution prefilled syringe To be sent to: [id number] [place], [place] - [address] [facility] documented in this encounter Plan of Treatment Upcoming Encounters Date Type Department Care Team ([facility] st Contact Info) Description 02/20/2025 2:15 PM EDT Office Visit [facility] MEDICINE [address] [place] [address] Mariya Newsome MD 230 [place], [place] [phone] documented as of this encounter Visit Diagnoses Not on filedocumented in this encounter Additional Health Concerns Assessment Noted Time PHQ-9 Depression Total Score: 12 024 2:22 PM EDT documented as of this encounter Care Teams Heading Repairer Relationship Specialty Start Date End Date Mariya Juan MD [address] [place] [phone] PCP - General Internal Medicine 04/28/23 documented as of this encounter
== END 2025-02-15 15:04 | disposition home or self-care (01) ==
LOC: HO.ACS 14:44
PROVIDERS: Visit Provider Internal Medicine Medical Oncology
DX: Z79.01 Long term (current) use of anticoagulants (principal)

== ENCOUNTER → 2025-02-15 14:44 | Outpatient (BNVA) | payer OTHER, SELFPAY | PROVIDERS: Visit Provider Internal Medicine Medical Oncology | DX: Z95.2 Presence of prosthetic heart valve (principal); Z79.01 Long term (current) use of anticoagulants; Z51.81 Encounter for therapeutic drug level monitoring | CPT/HCPCS: 85610; 99211 ==

== ENCOUNTER 2025-02-20 13:04 | Outpatient (AMB) | payer OTHER, SELFPAY ==
[2025-02-20 13:14] LABS: Prothrombin Time Whole Bld POC 17.8 sec (11.1-13.5); ~PT, ~INR - Anti Coag Clinic 1.5 (0.9-1.1)
--- NOTE | 2025-02-20 14:23 | MHC.OFFVISCO ---
Intake Intake Visit Reasons: Anticoagulation Allergies hydrocodone [From VICODIN] Allergy (Unknown, Verified 02/20/25 13:14) GI UPSET Medication List - Last Reconciled 02/20/25 by Trinh Giron RN acetaminophen 325 mg PO QID PRN 7 days acetaminophen ER (Tylenol Arthritis Pain) 1,300 mg PO Q8H PRN albuterol sulfate 90 mcg/actuation (ProAir HFA) 2 puffs inhalation Q4-6H PRN atorvastatin 20 mg PO DAILY blood pressure test kit-large As directed buprenorphine-naloxone 8-2 mg (Suboxone) 1 film sublingual BID celecoxib (Celebrex) 200 mg PO DAILY PRN coenzyme Q10 (Co Q-10) PO fluticasone propionate 50 mcg/actuation sprays intranasal hydroxyzine pamoate 25 mg PO TID inhalational spacing device ([employer] Pascale [facility] spacer) As directed loratadine 10 mg PO DAILY melatonin 5 mg PO BEDTIME PRN omeprazole 20 mg PO DAILY ondansetron 4 mg PO Q8H PRN 4 days ondansetron HCl 4 mg PO Q8H PRN polyethylene glycol 3350 (Miralax) 17 grams PO DAILY sodium chloride 0.65% (Deep Sea Nasal) sprays intranasal warfarin 7.5 mg See Protocol PO 2XW warfarin 10 mg See Protocol PO 5XW Nursing Note PT.STATES THAT HE HAS MISSED 2 DOSES OF WARFARIN THIS WEEK. WILL BOOST TO 11.25MGM 2 DAYS THEN RECHECK INR ON 02/22/25. HE WILL START LOVENOX BID. CALL TO PCP(DEMETRIA)TO REPORT INR AND PLAN OF CARE AND REQUEST FOR LOVENOX REFILL. PT.HAS APPT.WITH PCP AFTER ACS TODAY, SO HE WILL ALSO INFORM OF THE NEED FOR MORE LOVENOX. NO GREENS IN MEANTIME GOOD UNDERSTANDING VERB. 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
--- OUTSIDE RECORDS SUMMARY | 2025-02-20 15:29 | XMS_ITS | Encounter Summary ---
Author Organization [employer] Address [address] [facility] 7t [place] [address] Care Team Providers Care Shirt Folding Machine Operator Name Role Phone Mraiya Juan MD Primary Care Pro vider Reason for Visit * Reason Comments Pre-op Exam Encounter Details Date Type Department Care Team ([facility] st Contact Info) Description 02/20/2025 2:15 PM EDT Office Visit [facility] MEDICINE 230 [place] [address] Mariya Newsome MD 230 [place] [address] Pre-op evaluation (Primary Dx) Social History Tobacco Use Types Packs/Day Years [...] PM EDT documented as of this encounter Last Filed Vital Signs Vital Sign Reading Time Taken Comments Blood Pressure 133/78 02/20/2025 2:08 PM EDT Pulse 85 02/20/2025 2:08 PM EDT Temperature 36.5 ??C (97.7 ??F) 02/20/2025 2:08 PM ED T Respiratory Rate 12 02/20/2025 2:08 PM EDT Oxygen Saturation 97% 02/20/2025 2:08 PM EDT Inhaled Oxygen Concentration - - Weight 120 kg (265 lb 6 oz) 02/20/2025 2:08 PM E DT Height 190.5 cm (6' 3 ) 02/20/2025 2:08 PM EDT Body Mass Index 33.17 02/20/2025 2:08 PM EDT documented in this encounter Plan of Treatment Not on file documented as of this encounter Visit Diagnoses Diagnosis Pre-op evaluation- Primary documented in this encounter Additional Health Concerns Assessment Noted Time PHQ-9 Depression Total Score: 12 024 2:22 PM EDT documented as of this encounter Care Teams Shirt Folding Machine Operator Relationship Specialty Start Date End Date Mariya Juan MD [address] [place] [address] PCP - General Internal Medicine 04/28/23 documented as of this encounter
--- OUTSIDE RECORDS SUMMARY | 2025-02-20 15:29 | XMS_ITS | Encounter Summary ---
Author Organization [employer] Address [address] [facility] 7t [place] [address] Care Team Providers Care Fiber Optics Technician Name Role Phone Mariya Juan MD Primary Care Pro vider Encounter Details Date Type Department Care Team ([facility] st Contact Info) Description 02/20/2025 Telephone [facility] MEDICINE 230 [place], [place] [phone] Blanca Abbott RN Social History Tobacco Use Types Packs/Day Years [...] encounter Miscellaneous Notes * Telephone Encounter - Blanca Abbott RN - 02/20/2025 2:26 PM EDT Blanca as we discussed please can you check w his lubrication servicer/neurologist about plan for subtherapeutic INRs , he did have intracraneal bleeding not so long ago , he is apprently also going for dentalprocedure and is seeing Dr Summers for that so if then can help w recommendation on his AC documented in this encounter Plan of Treatment Not on file documented as of this encounter Visit Diagnoses Not on filedocumented in this encounter Additional Health Concerns Assessment Noted Time PHQ-9 Depression Total Score: 12 024 2:22 PM EDT documented as of this encounter Care Teams Fiber Optics Technician Relationship Specialty Start Date End Date Mariya Juan MD [address] [phone] PCP - General Internal Medicine 04/28/23 documented as of this encounter
--- OUTSIDE RECORDS SUMMARY | 2025-02-20 15:29 | XMS_ITS | Encounter Summary ---
Author Organization [employer] Address [address] [place] [address] 7t [place] [address] Care Team Providers Care Black Leather Trimmer Name Role Phone Kay Dennis INFERTILITY MEDICAL ASSISTANT Primary Care Provider +[phone]- [phone] Mariya Juan MD Primary Care Pro vider Encounter Details Date Type Department Care Team (Late st Contact Info) Description 01/17/2023 Telephone [facility] MEDICINE [address] [place] [phone] Kay Dennis INFERTILITY MEDICAL ASSISTANT [address] [place] [address] Dept [place] [address] Social History Tobacco Use Types Packs/Day Years [...] dosing. Please call her to advised at [phone]. documented in this encounter Plan of Treatment Not on file documented as of this encounter Visit Diagnoses Not on filedocumented in this encounter Care Teams Black Leather Trimmer Relationship Specialty Start Date End Date Kay Dennis FNP PCP - General Family Medicine 07/05/22 04/27/23 Mariya Juan MD [address] [place] [address] PCP - General Internal Medicine 04/28/23 documented as of this encounter
--- OUTSIDE RECORDS SUMMARY | 2025-02-20 15:29 | XMS_ITS | Encounter Summary ---
Author Organization [employer] Address [address] [place] [address] 7 [place] [address] Care Team Providers Care Director Treasurer Name Role Phone Mariya Juan MD Primary Care Pro vider Reason for Visit * Reason Onset Date Comments critical results 02/20/2025 Encounter Details Date Type Department Care Team ([facility] st Contact Info) Description 02/20/2025 Telephone [facility] 230 [place] [address] Mariya Juan MD 230 [place] [address] critical results Social History Tobacco Use Types Packs/Day Years [...] the past 12 months, has t he [employer], gas, oil or water company threatened to [...] encounter Miscellaneous Notes * Telephone Encounter - Meghann Marin RN - 02/20/2025 2:01 PM EDT TC received from Pattie at [facility] Coumadin clinic. Pt's INR today was 1.5, pt reports he had missed 2 days worth of Coumadin. Pattie instructed pt to take one dose of Lovenox today , 2 doses Lovenox tomorrow.Pt also to take 11.25 mg of Coumadin today and tomorrow. Next INR check this Thursday 02/22. Pt is scheduled for preop appt today at 2:[address] Summers. documented in this encounter Plan of Treatment Not on file documented as of this encounter Visit Diagnoses Not on filedocumented in this encounter Additional Health Concerns Assessment Noted Time PHQ-9 Depression Total Score: 12 024 2:22 PM EDT documented as of this encounter Care Teams Director Treasurer Relationship Specialty Start Date End Date Mariya Juan MD [address] [place] [address] PCP - General Internal Medicine 04/28/23 documented as of this encounter
--- OUTSIDE RECORDS SUMMARY | 2025-02-20 15:29 | XMS_ITS | Encounter Summary ---
Author Organization [employer] Address [address] [facility] 7t [place] [address] Care Team Providers Care Whale Trainer Name Role Phone Kay Dennis Primary Care Provider +1- [phone] Mariya Juan MD Primary Care Pro vider Reason for Visit * Reason Onset Date Comments Durable Medical Equipment 02/25/2023 Encounter Details Date Type Department Care Team (Late st Contact Info) Description 02/25/2023 Telephone [facility] MEDICINE [address] [place] [address] Kay Dennis FNP [address] [place] [address] [place] [address] Durable Medical Equipment Social History Tobacco Use [...] long ago. Please sent to script [email or web address] If any questions please contact Tammy at [phone] documented in this encounter Plan of Treatment Not on file documented as of this encounter Visit Diagnoses Not on filedocumented in this encounter Care Teams Whale Trainer Relationship Specialty Start Date End Date Kay Dennis FNP PCP - General Family Medicine 07/05/22 04/27/23 Mariya Juan MD [address] [place] [address] PCP - General Internal Medicine 04/28/23 documented as of this encounter
--- OUTSIDE RECORDS SUMMARY | 2025-02-20 15:29 | XMS_ITS | Encounter Summary ---
Author Organization [employer] Address [address] [facility] 7t [place] [address] Care Team Providers Care Hospital Security Officer Name Role Phone Mariya Juan MD Primary Care Pro vider Encounter Details Date Type Department Care Team (Latest Contact Info) Description 02/20/2025 Travel Social History Tobacco Use Types Packs/Day Years [...] documented as of this encounter Care Teams Hospital Security Officer Relationship Specialty Start Date End Date Mariya Juan MD [address] [place] [phone] PCP - General Internal Medicine 04/28/23 documented as of this encounter
--- OUTSIDE RECORDS SUMMARY | 2025-02-20 15:29 | XMS_ITS | Encounter Summary ---
Author Organization [employer] Address [address] [place] [address] 7 [place] [address] Care Team Providers Care Lab Clerk Name Role Phone Mariya Juan MD Primary Care Pro vider Reason for Visit * Reason Onset Date Comments Med Refill 01/08/2025 Encounter Details Date Type Department Care Team ([facility] st Contact Info) Description 01/08/2025 Telephone [facility]INE [address] [place] [address] Mariya Juan MD [address] [place] [address] Med Refill Social History Tobacco Use Types [...] solution prefilled [id number] [place], [place] - [address] [facility] documented in this encounter Plan of Treatment Not on file documented as of this encounter Visit Diagnoses Not on filedocumented in this encounter Additional Health Concerns Assessment Noted Time PHQ-9 Depression Total Score: 12 024 2:22 PM EDT documented as of this encounter Care Teams Lab Clerk Relationship Specialty Start Date End Date Mariya Juan MD [address] [place] [address] [phone] PCP - General Internal Medicine 04/28/23 documented as of this encounter
--- OUTSIDE RECORDS SUMMARY | 2025-02-20 15:29 | XMS_ITS | Encounter Summary ---
Author Organization [employer] Address [address] [place] [address] 7t [place] [address] Care Team Providers Care Core Sucker Name Role Phone Kay Dennis Primary Care Provider [phone]- [phone] Mariya Juan MD Primary Care Pro vider Encounter Details Date Type Department Care Team (Late st Contact Info) Description 02/09/2023 Telephone [facility] MEDICINE [address] [place] [phone] Kay Dennis FNP [address] [place] [address] Dept [place] [address] Social History Tobacco Use Types Packs/Day Years [...] on filedocumented in this encounter Care Teams Core Sucker Relationship Specialty Start Date End Date Kay Dennis FNP PCP - General Family Medicine 07/05/22 04/27/23 Mariya Juan MD [address] [place] [phone] PCP - General Internal Medicine 04/28/23 documented as of this encounter
--- OUTSIDE RECORDS SUMMARY | 2025-02-20 15:29 | XMS_ITS | Encounter Summary ---
Author Organization [employer] Address [address] [place] [address] 7t [place] [address] Care Team Providers Care Liberal Arts And Humanities Chair Name Role Phone Mariya Juan MD Primary Care Pro vider Reason for Visit * Reason Comments Med Refill Encounter Details Date Type Department Care Team (Late st Contact Info) Description 05/23/2023 Refill [facility] MEDICINE [address] [place] [address] Kay Dennis FNP [address] [place] [address] Dept of [place] [address] Social History Tobacco Use Types Packs/Day Years [...] documented as of this encounter Care Teams Liberal Arts And Humanities Chair Relationship Specialty Start Date End Date Mariya Juan MD [address] [place] [phone] PCP - General Internal Medicine 04/28/23 documented as of this encounter
--- OUTSIDE RECORDS SUMMARY | 2025-02-20 15:29 | XMS_ITS | Clinical Summary ---
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 Went to [facility] ED on 08/18/22 and was admitted for infection and started antibiotics. Blood cultures on 08/18/22 and 08/20/22 grew MSSA. 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 Plan was to transfer [facility]. Transferred to [facility] on 08/21/22 for further management of infective [...] bleed improving Has PT in home through [facility]. 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 Went to [facility] ED on 08/18/22 and was admitted for infection and started antibiotics. Blood cultures on 08/18/22 and 08/20/22 grew MSSA. 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 Plan was to transfer [facility]. Transferred to [facility] on 08/21/22 for further management of infective [...] endocarditis 11/03/2022 Overview (04/28/2023): Was seen at [facility] on 08/17/22 with noted nausea, diaphoresis in exam room, discomfort, profound fatigue, referred to [facility] ED now. Went to [facility] ED on 08/18/22 and was admitted for infection and started antibiotics. Blood cultures on 08/18/22 and 08/20/22 grew MSSA. 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 Plan was to transfer [facility]. Transferred to [facility] on 08/21/22 for further management of infective [...] Encounters Date Type Department Care Team Description 02/20/2025 2:15 PM EDT Office Visit [facility] [address] [place] [phone] Mariya Newsome MD Pre-op evaluation (Primary Dx) 02/20/2025 Telephone [facility] [address] [place] [address] Blanca Abbott, JOLENE 02/20/2025 Travel 02/20/2025 Telephone [facility] [address] [place] [address] Mariya Juan MD critical results 02/13/2025 Telephone [facility] [address] [place] [address] Olga Mendes RN Pre-op Exam 01/28/2025 Telephone [facility] [address] [place] [address] Mariya Juan MD Critical Lab 01/25/2025 Refill [facility] [address] [place] [address] Daphnie Vann MD Anxiety state 01/08/2025 Orders Only [facility] [address] [place] [address] Yanira Lei MD Hx of prosthetic mitral valve 01/08/2025 Telephone [facility] [address] [place] [address] Mariya Juan MD Med Refill 01/07/2025 Telephone [facility] [address] [place] [address] Mariya Juan MD critical lab 12/23/2024 Refill [facility] [address] [place] [address] Mariya Juan MD Mechanical heart valve present 12/19/2024 Orders Only GENERIC EXTERNAL DATA DEPARTMENT Provider, Generic External Data 12/10/[address] [facility] [address] [place], [place] [phone] Mariya Juan MD Mild intermittent asthma without complication 12/07/2024 Orders Only GENERIC EXTERNAL DATA DEPARTMENT Provider, Generic External Data 11/30/2024 Telephone [facility] [address] [place] [address] Mariya Juan MD Medication Question 11/30/2024 Telephone [facility] [address] [place] [address] Lyndsay Badillo [place] February Recall 11/23/2024 Orders Only GENERIC EXTERNAL DATA DEPARTMENT Provider, Generic External Data from Last 3 Months Immunizations Name Administration Dates Next Due DTaP 07/18/1989, 7,12/20/1986,11/19 Hep B, Adolescent or Pediatric 12/10/1998,1997,1998 Hib ([facility]) 10/20/1987 Influenza injectable quadriv alent IIV4 [...] Mass Index 33.17 02/20/2025 2:08 PM EDT Plan of Treatment Health Maintenance Due Date Last Done Comments Alcohol/Substance Use Screening 1997 Family Planning (PISQ) 2000 COVID-19 Vaccine ( season) 2024 04/28/2023, 03/17/2022, 02/09/2022 Depression Monitoring 01/21/2025 07/24/2024, 024 Depression Screening 07/24/2025 07/24/2024, 07/24/20 24 SDOH Screening 07/24/2025 07/24/2024 DTaP/Tdap/Td Vaccines (10 - Td or Tdap) 01/10/2026 01/11/2016, 01/11/2016, 07/04/2013, Additional history exists Tobacco Screening 02/20/2026 02/20/2025 Lipid Panel 09/14/2029 09/14/2024, 04/08, 05/20/2022, Additional [...] [facility] Routine 11/23/2024 11:49 AM EST HEPATITIS C AB W/REFL TO [...] 2:04 PM EST) Only the most recent of3 resultswithin the time period is included. Protime 33.0(H) 11.1 - 13.5 sec [facility] 12/19/2024 2:04 PM EST 12/19/2024 2:06 PM EST us Generic External Data Provider LAB BLOOD ORDERAB LES Final Result Performing Organization Address [facility] Co de Phone Number [facility] [address] [place] [phone] * (ABNORMAL) ~PT, ~INR - ANTI COAG CLINIC (12/19/2024 2:04 PM EST) Only the most recent of3 resultswithin the time period is included. Prothrombin Time INR 2.8(H) 0.9 - 1.1 [facility] Comment:METER #: [id number] TERNATIONAL NORMALIZED RATIO (INR) REFERENCE RANGES Reference [...] PM EST 12/19/2024 2:06 PM EST us [employer] External Data Provider LAB BLOOD ORDERAB LES Final Result Performing Organization Address [facility] Co de Phone Number [facility] [address] [place] [phone] * Hepatitis C Antibody with Reflex to HCV, RNA, Quantitative, Real-Time PCR (09/14/2024 4:32 PM EST) Hepatitis C Antibody Nonreactive Nonreactive [facility] Comment:Antibodies to HCV no t detected; does not exclude early acuteHCV infection. Blood Venous blood specimen / Unknown 09/14/2024 4:32 PM EST 09/14/2024 6:05 PM EST us Mariya Cho MD LAB BLOOD ORDERAB LES Final Result Performing Organization Address City/[facility]/ZIP Co de Phone Number [facility] [address] [place] [phone] * HIV-1/2 Antigen and Antibodies, Fourth Generation, with Reflexes (09/14/2024 4:32 PM EST) HIV AB/AG Nonreactive Nonreactive [facility] Comment:HIV-1 p24 Ag and/or HIV-1/HIV-2 Ab not detected.A test result that is nonreactive does not exclude thepossibility of exposure to or infection with HIV-1 and/orHIV-2. Nonreactive results in this assay for individualswith prior exposure to HIV-1 and/or HIV-2 may be due toantigen and antibody levels that are below the limit ofdetection of this assay.[employer] HIV Ag/Ab Combo assay result andsupplemental assay results should be interpreted inconjunction with the patient's clinical presentation,history and other laboratory results. If the results areinconsistent with clinical evidence, additional testing issuggested to confirm the result. Blood Venous blood specimen / Unknown 09/14/2024 4:32 PM EST 09/14/2024 6:05 PM EST us Mariya Cho MD LAB BLOOD ORDERAB LES Final Result Performing Organization Address City/[facility]/ZIP Co de Phone Number [facility] [address] [place] [phone] * (ABNORMAL) Lipid Panel, Standard (09/14/2024 4:23 PM EST) Triglycerides 194(H) <150 mg/dL [facility] Comment:Desirable Triglyceri de: less than 150 mg/dLBorderline High Triglyceride 150-199 mg/dLHigh Triglyceride: 200-499 mg/dLVery High Triglyceride: greater than or equal to 5OO mg/dL Cholesterol 131 <200 mg/dL [facility] Comment:Desirable Cholestero l: less than 200 mg/dLBorderline High Cholesterol: 200-239 mg/dLHigh Cholesterol: greater than 239 mg/dL LDL Cholesterol Calculated 62 <100 mg/dL [facility] Comment:Desirable LDL: less than 100 mg/dLNear Optimal/Above Optimal LDL: 110- 129 mg/dLBorderline High LDL: 130-159 mg/dLHigh LDL: 160-189 mg/dLVery High LDL: greater than or equal to 190 mg/dL HDL Cholesterol 31(L) >40 mg/dL [facility] Comment:Desirable HDL: great er than 40 mg/dL Note: This HDL assay may give artificially low results in patients with liver disease. Blood Venous blood specimen / Unknown 09/14/2024 4:23 PM EST 09/14/2024 6:05 PM EST us Mariya Cho MD LAB BLOOD ORDERAB LES Final Result Performing Organization Address City/State/[facility] Co de Phone Number [facility] [address] [place] [address] [phone] from Last 3 Months or Most Recently Relevant to Health Maintenance Insurance [employer] < 65 [place] [id number] Care Teams Kerrick Kleaner Operator Relationship Specialty Start Date End Date Mariya Juan MD [address] [place] [phone] PCP - General Internal Medicine 04/28/23
--- OUTSIDE RECORDS SUMMARY | 2025-02-20 15:29 | XMS_ITS | Data Portability ---
Author Organization [place] [facility], Allergy Address [address] [facility] [address] [place] [phone] Care Team Providers Care Payroll Associate Name Role Phone NAME, KEIRA Primary Care [...] 50 mcg/actua tion nasal spray,darrin pension [address] [id number], [address] [place], [place], [phone], 15:20:32 Patient TargetsNo targets recorded. Patient InstructionsNo instructions recorded. Reason for Referral None Reported. 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 Procedures Surgical History Date Name Laterality Status Provider Name and Address Organization Details Recorded Time Heart Surgery completed Daphnie Welsh [place] - [facility] 04/11/2024 15:01:33 Imaging Results None recorded. Procedure [...] Updated DateTime 08/30/2024 190.5 cm 30 kg/m2 076708.17 g Nelli Fishman [place] - [facility] 08/30/2024 10:37:44 Date Recorded Body height Body mass index (BMI) Body weight Provider Name and Address Organization Details Last Updated DateTime 04/11/2024 190.5 cm 30 kg/m2 610537.17 g Daphnie Welsh [place] - [facility] 04/11/2024 14:58:50 Social History None recorded. Functional Status None recorded. Mental Status None recorded. Family History Nothing Reported. Medical History No medical history recorded. Past Encounters Encounter ID Performer Location Encounter Start Date Encounter Closed Date Diagnosis/Indication Diagnosis SNOMED-CT Code Diagnosis ICD10 Code Diagnosis Note [id number] CHANI KIM PA-C [facility] [address] [place] [address] 04/11/2024 14:35:25 04/11/2024 15:13:40 Amygdalolith 9514685 J35.8 Allergic rhinitis 155343 04 J30.89 [id number] EDDIE MONTES MD [facility] [address] [place] [address] 08/30/2024 10:28:36 08/30/2024 10:58:17 Amygdalolith 3093007 J35.8 Discourage d surgery. Recommend observatio n. [...] Roberts Member ID Guarantor Name 04/11/2024 1 [facility] - DOS ON OR AFTER 2023 - MEDICARE ADVANTAGE [place] & [place] (MEDICARE REPLACEMENT/AD VANTAGE - PPO) Ludin Mendes [id number] Ludin Mendes Notes Date Note Type Note [...] not continue it. CHANI KIM PA-C [address], [address], [facility] - [facility] 04/11/2024 15:25:28 08/30/2024 text/html 38-year-old male presents for evaluation of tonsil stones. Bleeding has resolved. He has not been using flonase but finds mouth rinses helpful. He is less bothered than before. EDDIE MONTES MD [address] [place] [address], [phone], [facility] - [facility] 08/30/2024 11:00:13
--- OUTSIDE RECORDS SUMMARY | 2025-02-20 15:29 | XMS_ITS | Encounter Summary ---
Author Organization [employer] Address [address] [place] [address] 7t [place] [address] Care Team Providers Care Diesel Mechanic Apprentice Name Role Phone Kay Dennis Sofie ROACH Primary Care Provider [phone]- [phone] Mariya Juan MD Primary Care Pro vider Encounter Details Date Type Department Care Team (Late st Contact Info) Description 12/16/2022 Orders Only [facility] MEDICINE [address] [place] [address] Aida Villegas LPN Social History Tobacco Use [...] EST) Protime 45.7(H) 11.1 - 13.5 sec [facility] 12/16/2022 2:35 PM EST 12/16/2022 2:36 PM EST [facility] External Provider LAB BLO OD ORDERABLES Final Result Performing Organization Address City/[facility] Co de Phone Number [facility] [address] [place] [phone] * (ABNORMAL) ~PT, ~INR - ANTI COAG CLINIC (12/16/2022 2:35 PM EST) Prothrombin Time INR 3.8(H) 0.9 - 1.1 [facility] Comment:METER #: [id number] TERNATIONAL NORMALIZED RATIO (INR) REFERENCE RANGES Reference [...] 2:35 PM EST 12/16/2022 2:36 PM EST [facility] External Provider LAB BLO OD ORDERABLES Final Result Performing Organization Address City/[facility] Co de Phone Number [facility] [address] [place] [phone] documented in this encounter Visit Diagnoses Not on filedocumented in this encounter Care Teams Diesel Mechanic Apprentice Relationship Specialty Start Date End Date Kay Dennis FNP PCP - General Family Medicine 07/05/22 04/27/23 Mariya Juan MD [address] [place] [address] PCP - General Internal Medicine 04/28/23 documented as of this encounter
--- OUTSIDE RECORDS SUMMARY | 2025-02-20 15:29 | XMS_ITS | Encounter Summary ---
Author Organization [employer] Address [address] [place] [address] 7 [place] [address] Care Team Providers Care Adolescent Medicine Specialist Name Role Phone Mariya Juan MD Primary Care Pro vider Reason for Visit * Reason Onset Date Comments Med Refill 04/20/2024 Encounter Details Date Type Department Care Team ([facility] st Contact Info) Description 04/20/2024 Telephone [facility] [address] [place], [place] [phone] Mariya Juan MD [address] [place] [address] Med Refill Social History Tobacco Use Types [...] EDT Telephone call placed to Freida at [facility] Coumadin clinic. Gave orders to [...] PM EDT Received call from Freida from [facility] coumadin clinic. Pt back today [...] 04/20/2024 4:01 PM EDT TC placed to [facility] Anticoagulation to inquire when pt last got INR drawn. According to the campus receptionist the pt was to come for [...] [id number] [id number] [facility] documented in this encounter Plan of Treatment Not on file documented as of this encounter Visit Diagnoses Not on filedocumented in this encounter Additional Health Concerns Assessment Noted Time PHQ-9 Depression Total Score: 04/28/20 23 2:32 PM EDT documented as of this encounter Care Teams Adolescent Medicine Specialist Relationship Specialty Start Date End Date Mariya Juan MD [address] [place] [phone] PCP - General Internal Medicine 04/28/23 documented as of this encounter
--- OUTSIDE RECORDS SUMMARY | 2025-02-20 15:29 | XMS_ITS | Clinical Summary ---
Author Organization [facility] Address [address] [place] [address] Phone Care Team Providers Care Block Greaser Name Role Phone Sharon Baum MD Primary Care Provider [phone] Allergies No known active allergies Medications Buprenorphine [...] to 49 Years) Completed 04/28/2023, 02/17/2013 Insurance [facility] ([id number]) [facility] ([id number]) [place] [id number] Care Teams Block Greaser Relationship Specialty Start Date End Date Sharon Baum MD [address] [place] [phone] PCP - General Internal Medicine 10/20/22
== END 2025-02-20 14:27 | disposition home or self-care (01) ==
LOC: HO.ACS 13:04
PROVIDERS: Visit Provider Internal Medicine Medical Oncology
DX: Z79.01 Long term (current) use of anticoagulants (principal)

== ENCOUNTER → 2025-02-20 13:04 | Outpatient (BNVA) | payer OTHER, SELFPAY | PROVIDERS: Visit Provider Internal Medicine Medical Oncology | DX: Z95.2 Presence of prosthetic heart valve (principal); Z79.01 Long term (current) use of anticoagulants; Z51.81 Encounter for therapeutic drug level monitoring | CPT/HCPCS: 85610; 99211 ==

== ENCOUNTER 2025-02-22 10:33 | Outpatient (AMB) | payer OTHER, SELFPAY ==
[2025-02-22 10:38] LABS: Prothrombin Time Whole Bld POC 31.2 sec (11.1-13.5); ~PT, ~INR - Anti Coag Clinic 2.6 (0.9-1.1)
--- NOTE | 2025-02-22 10:43 | MHC.OFFVISCO ---
Intake Intake Visit Reasons: Anticoagulation Allergies hydrocodone [From VICODIN] Allergy (Unknown, Verified 02/22/25 10:34) GI UPSET Medication List - Last Reconciled 02/22/25 by Kayla Alvarez RN acetaminophen 325 mg PO QID PRN 7 days acetaminophen ER (Tylenol Arthritis Pain) 1,300 mg PO Q8H PRN albuterol sulfate 90 mcg/actuation (ProAir HFA) 2 puffs inhalation Q4-6H PRN atorvastatin 20 mg PO DAILY blood pressure test kit-large As directed buprenorphine-naloxone 8-2 mg (Suboxone) 1 film sublingual BID celecoxib (Celebrex) 200 mg PO DAILY PRN coenzyme Q10 (Co Q-10) PO fluticasone propionate 50 mcg/actuation sprays intranasal hydroxyzine pamoate 25 mg PO TID inhalational spacing device ([facility] [facility] spacer) As directed loratadine 10 mg PO DAILY melatonin 5 mg PO BEDTIME PRN omeprazole 20 mg PO DAILY ondansetron 4 mg PO Q8H PRN 4 days ondansetron HCl 4 mg PO Q8H PRN polyethylene glycol 3350 (Miralax) 17 grams PO DAILY sodium chloride 0.65% (Deep Sea Nasal) sprays intranasal warfarin 7.5 mg See Protocol PO 2XW warfarin 10 mg See Protocol PO 5XW Nursing Note INR: 2.6 in therapeutic range of 2.5-3.5 Medications and supplements reviewed No changes in health, diet, medications, or supplements, Denies any signs and symptoms of bleeding or bruising or clotting. Bleeding, bruising, clotting discussed Nutritional guidance given to avoid greens X 2 days Dose: 7.5mg X 6 days and 3.75mg X 1 day(Sun) F/U INR: 1 week Patient verbalizes understanding of instructions given Anti-Coag Initial Assessment Social Hx Patient Tobacco Use Status: Former Tobacco user Tobacco use type: Cigarette alcohol intake: never Alcohol intake frequency: does not drink Coding Level of Care Code Est Patient Level 1 Diagnoses Current use of anticoagulant therapy Z79.01 Results AMB INR Fingerstick AMB INR Fingerstick 2.6 Last Edit by Kayla Alvarez RN on 02/22/25 10:39 interface delay Assessment & Plan Assessment & Plan (1) Current use of anticoagulant therapy: Code(s): Z79.01 - 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
--- OUTSIDE RECORDS SUMMARY | 2025-02-22 11:32 | XMS_ITS | Encounter Summary ---
Author Organization [employer] Address [address] [facility] 7t [place] [address] Care Team Providers Care Dope House Operator Helper Name Role Phone Mariya Juan MD Primary [...] documented as of this encounter Care Teams Dope House Operator Helper Relationship Specialty Start Date End Date Mariya Juan MD [address] [place] [phone] PCP - General Internal Medicine 04/28/23 documented as of this encounter
--- OUTSIDE RECORDS SUMMARY | 2025-02-22 11:32 | XMS_ITS | Encounter Summary ---
Author Organization [employer] Address [address] [facility] 7t [place] [address] Care Team Providers Care Copywriter Name Role Phone Mariya Juan MD Primary Care Pro vider Encounter Details Date Type Department Care Team ([facility] st Contact Info) Description 02/20/2025 Telephone [facility] MEDICINE [address] [place], [place] [phone] Blanca Abbott RN Social History Tobacco Use [...] Encounter - Blanca Abbott RN - 02/20/2025 4:24 PM EDT TC placed to [facility] Neurology to inquire and ask if pt could be scheduled for a follow up appt assoon as possible due to uncontrolled subtherapeutic INRs and history of a recent brain bleed. The fur finisher confirmed that the pt was seen by Dr. Mancera back in August of 2024. (See [place] consult [place] from [facility] in pt chart from this appt[place] A follow up appt is not currently scheduled for the pt. A message will be sent to Dr. Mancera with this information and the [facility] call back number given with direct extension for callback. TC placed to [facility] Cardiology to inform of pt current anticoagulation status and concern with a history of a brain bleed. The executive receptionist will send a message to Dr. Jiménez to inform but stated that currently they are scheduling into December of 2025 * Telephone Encounter - Blanca Abbott RN - 02/20/2025 3:22 PM EDT TC placed to [facility] Cardiology to check and see if the pt marina dry dock manager Dr. Jiménez was aware of pt recent uncontrolled and subtherapeutic INRs. Per [facility] the pt has not been seen by Dr. Jiménez in over a year and a half. A message was sent to Dr. Jiménez to inform and ask for recommendation anyway Pt is scheduled with Dr. Castañeda in the future for dental extraction of three teeth. Pt did show up for pre operative appt with Dr. Summers today. [facility] Coumadin clinic was called regarding plan of care going forward related to pt anticoagulation and the pt did see them today and received one dose of Lovenox tand will have two tomorrow. The pt will follow up with [facility] Cou[facility]in [facility] on Tuesday. Per the [facility] it is up to the discretion of the surgeon or marina dry dock manager to decide how to proceed with the anticoagulation. They will also discuss this upcoming dental procedure with him on Tuesday. * Telephone Encounter - Blanca Abbott RN - 02/20/2025 2:26 PM EDT Blanca as we discussed please can you check w his marina dry dock manager/neurologist about plan for subtherapeutic INRs , he [...] documented as of this encounter Care Teams Copywriter Relationship Specialty Start Date End Date Mariya Juan MD [address] [place] [phone] PCP - General Internal Medicine 04/28/23 documented as of this encounter
--- OUTSIDE RECORDS SUMMARY | 2025-02-22 11:32 | XMS_ITS | Encounter Summary ---
Author Organization [employer] Address [address] [facility] 7t [place] [address] Care Team Providers Care Humanities And Languages Professor Name Role Phone Kay Dennis Primary Care Provider [phone] Mariya Juan MD Primary Care Pro vider Reason for Visit * Reason Onset Date Comments Durable Medical Equipment 02/25/2023 Encounter Details Date Type Department Care Team (Late st Contact Info) Description 02/25/2023 Telephone [facility] MEDICINE [address] [place] [phone] Kay Dennis FNP [address] [place] [address] Dept [place] [address] Durable Medical Equipment Social History Tobacco Use [...] long ago. Please sent to script [email or web address] If any questions please contact Tammy at [phone] documented in this encounter Plan of Treatment Not on file documented as of this encounter Visit Diagnoses Not on filedocumented in this encounter Care Teams Humanities And Languages Professor Relationship Specialty Start Date End Date Kay Dennis FNP PCP - General Family Medicine 07/05/22 04/27/23 Mariya Juan MD [address] [place] [phone] PCP - General Internal Medicine 04/28/23 documented as of this encounter
--- OUTSIDE RECORDS SUMMARY | 2025-02-22 11:32 | XMS_ITS | Clinical Summary ---
Author Organization [facility] Address [address] [place] [address] Phone Care Team Providers Care Business Education Instructor Name Role Phone Sharon Baum MD Primary Care Provider [phone] Allergies No known active allergies Medications Buprenorphine [...] to 49 Years) Completed 04/28/2023, 02/17/2013 Insurance [facility] ([id number]) [facility] ([id number]) DENIS ERNANDEZ [id number] Care Teams Business Education Instructor Relationship Specialty Start Date End Date Sharon Baum MD [address] [place] [phone] PCP - General Internal Medicine 10/20/22
--- OUTSIDE RECORDS SUMMARY | 2025-02-22 11:32 | XMS_ITS | Encounter Summary ---
Author Organization [employer] Address [address] [place] [address] 7t [place] [address] Care Team Providers Care Director Graphics Name Role Phone Mariya Juan MD Primary Care Pro vider Reason for Visit * Reason Comments Med Refill Encounter Details Date Type Department Care Team (Late st Contact Info) Description 05/23/2023 Refill [facility] MEDICINE [address] [place] [address] Kay Dennis FNP [address] [place] [address] Dept [place] [address] Social History Tobacco Use Types Packs/Day Years [...] as of this encounter Care Teams Director Graphics Relationship Specialty Start Date End Date Mariya Juan MD [address] [place] [phone] PCP - General Internal Medicine 04/28/23 documented as of this encounter
--- OUTSIDE RECORDS SUMMARY | 2025-02-22 11:32 | XMS_ITS | Encounter Summary ---
Author Organization [employer] Address [address] [place] [address] 7 [place] [address] Care Team Providers Care Screening Technician Name Role Phone Mariya Juan MD Primary Care Pro vider Reason for Visit * Reason Onset Date Comments critical results 02/20/2025 Encounter Details Date Type Department Care Team ([facility] st Contact Info) Description 02/20/2025 Telephone [facility] PEDI[facility]ICS [address] [place] [address] Mariya Juan MD [address] [place] [address] critical results Social History Tobacco Use Types [...] the past 12 months, has t he [employer] gas, oil or water company threatened to [...] PM EDT TC received from Pattie at [facility] Coumadin clinic. Pt's INR today was 1.5, [...] documented as of this encounter Care Teams Screening Technician Relationship Specialty Start Date End Date Mariya Juan MD [address] [place] [phone] PCP - General Internal Medicine 04/28/23 documented as of this encounter
--- OUTSIDE RECORDS SUMMARY | 2025-02-22 11:32 | XMS_ITS | Encounter Summary ---
Author Organization [employer] Address [address] [facility] 7t [place] [address] Care Team Providers Care Channel Layer Name Role Phone Mariya Juan MD Primary Care Pro vider Reason for Visit * Reason Comments Pre-op Exam Encounter Details Date Type Department Care Team ([facility] st Contact Info) Description 02/20/2025 2:15 PM EDT Office Visit [facility] MEDICINE [address] [place] [address] Mariya Newsome MD [address] [place] [address] Pre-op evaluation (Primary Dx); Hx of prosthetic mitral valve; History of prosthetic heart valve Social History Tobacco Use Types Packs/Day [...] housing situation today? I have nancycherise infante 07/24/[address] you [...] 2:08 PM EDT documented in this encounter Progress Notes * Mariya Murray MD - 02/20/2025 2:15 PM EDT SUBJECTIVE: Ludin Mendes is a 39 y.o. year old male who presents for Pre Op . Ludin is here today for pre-operative evaluation. Reports no sx of CP, SOB, RODRIGUEZ, at rest or with exertion. No paroxsysmal nocturnal orthopnea, LE swelling or palpitations. No h/o CVD, diabetes, kidney disease, Patient is on anticoagulant due to prosthetic mitral valve. No allergies to iodine, latexor tape. Can run across street or walk up flight of stairs without SOB or CP. Acute Concerns: None Social History Social History Narrative Not on file Patient Active Problem List Diagnosis Anxiety History of prosthetic heart valve Substance abuse (CMS/HCC) Bacterial endocarditis Constipation Right arm weakness Intraparenchymal hemorrhage of brain (CMS/HCC) Mild intermittent asthma without complication Mild major depression (CMS/HCC) Seasonal allergic rhinitis Health care maintenance Amygdalolith Obesity Onychomycosis Movement disorder Attention deficit hyperactivity disorder (ADHD), predominantly hyperactive type Loud snoring Pre-op evaluation Family History Problem Relation Name Age of Onset Other (Asthma,thyroid dx) Mother Brain cancer Mother's Sister Other (maternal cousin brain ca) Other Review of Systems Constitutional: Negative. HENT: Negative. Respiratory: Negative. Cardiovascular: Negative. Neurological: Negative. OBJECTIVE: Vitals: 02/20/25 1408 BP: 133/78 BP Location: Left arm Patient Position: Sitting BP Cuff Size: Large adult Pulse: 85 Resp: 12 Temp: 97.7 ??F (36.5 ??C) TempSrc: Oral SpO2: 97% Weight: 265 lb 6 oz (120 kg) Height: 6' 3 (1.905 m) Physical Exam Constitutional: Appearance: Normal appearance. Cardiovascular: Rate and Rhythm: Normal rate and regular rhythm. Comments: Systolic click due to his prosthetic mitral valve Pulmonary: Effort: Pulmonary effort is normal. Breath sounds: Normal breath sounds. Musculoskeletal: Right lower leg: No edema. Left lower leg: No edema. Neurological: Mental Status: He is alert. Follow Up: No follow-ups on file. Current Outpatient Medications on File Prior to Visit Medication Sig Dispense Refill acetaminophen (Tylenol 8 Hour) 650 MG ER tablet Take 2 tablets by mouth every 8 (eight) hours. albuterol (2.5 MG/3ML) 0.083% nebulizer solution Take 3 mL (2.5 mg) by nebulization every 4 (four) hours if needed for wheezing or shortness of breath. 75 mL 3 albuterol 108 (90 Base) MCG/ACT inhaler Inhale 2 puffs every 4 (four) hours if needed for wheezing or shortness of breath. 18 g 3 atorvastatin (Lipitor) 20 MG tablet Take 1 tablet (20 mg) by mouth Once per day. 30 tablet 3 Buprenorphine HCl-Naloxone HCl (Suboxone) 8-[address] 1 Film under the tongue every 12 (twelve) hours. cholecalciferol (Vitamin D-3) 50 MCG (2000 UT) tablet Take 1 tablet by mouth at bed time. fluticasone (Flonase Allergy Relief) 50 MCG/ACT nasal spray Administer 1 spray into each nostril 2 times daily. Shake gently. Before first use, prime pump. After use, clean tip and replace cap. 16 g 12 hydrOXYzine pamoate (Vistaril) 25 MG capsule TAKE 1 CAPSULE BY MOUTH EVERY 8 HOURS NEEDED FOR ANXIETY 90 capsule 1 loratadine (Claritin) 10 MG tablet Take 1 tablet (10 mg) by mouth in the morning. 90 tablet 1 multivitamin (Theragran) tablet take 1 tablet by oral route every day with food naloxone (Narcan) 4 mg/0.1 mL nasal spray Administer 0.1 mL into affected nostril(s). ondansetron ODT (Zofran-ODT) 4 MG disintegrating tablet DISSOLVE 2 TABLETS ON TOP OF THE TONGUE THEN SWALLOW EVERY 12 HOURS 60 tablet 0 polyethylene glycol, PEG, 3350 (MiraLax) 17 GM/SCOOP powder MIX AND DRINK 17 GM BY MOUTH EVERY DAY IF NEEDED FOR CONSTIPATION 510 g 2 sodium chloride (Ashe) 0.65 % nasal spray Administer 1 spray into each nostril if needed for congestion. 15 mL 2 warfarin (Coumadin) 5 MG tablet Take 2 tablet by mouth every Tuesday, Tuesday, , Tuesday, and Tuesday May be adjusted by coumadin clinic in the future. 60 tablet 3 warfarin (Coumadin) 7.5 MG tablet TAKE 1 TABLET BY MOUTH ON 6 DAYS A WEEK. TAKE 5MG ON 1 DAY OF THEWEEK. 60 tablet 2 [DISCONTINUED] Enoxaparin Sodium (Lovenox) 100 MG/ML solution prefilled syringe Inject 1 mL (100 mg) under the skin 2 times daily. lovenox to be given if INR is 2.0 or less and can be stopped once INR is 2.5 or more 14 mL 2 No current facility-administered medications on file prior to visit. Problem List Items Addressed This Visit Pre-op evaluation - Primary Patient is low to medium risk for low risk procedure, this procedure should proceed as scheduled Patient should continue to take his same Coumadin regimen for a therapeutic INR, no changes needed before the procedure. For dental procedures, including multiple tooth extractions, the ACC/AHA guidelines suggest that warfarin therapy should generally be continued, as the risk of thromboembolism from interrupting anticoagulation outweighs the risk of bleeding. Local hemostatic measures, such as the use of tranexamic acid mouthwash, can be employed to control bleeding Antibiotic prophylaxis is recommended for this patient, I will prescribe for him 2 g of amoxicillinto be taken before the procedure Relevant Medications amoxicillin (Amoxil) 500 MG capsule History of prosthetic heart valve Patient right now is having subtherapeutic INR, he is being managed by Coumadin clinic and is recommended to bridge him with Lovenox, he is asking today for refills I will put prescription in I advised to follow-up with Coumadin clinic, PCP and specialists Other Visit Diagnoses Hx of prosthetic mitral valve Relevant Medications Enoxaparin Sodium (Lovenox) 100 MG/ML solution prefilled syringe documented in this encounter Miscellaneous Notes * Assessment & Plan Note - Mariya Murray MD - 02/20/2025 5:31 PM EDT Associated Problem(s): History of prosthetic heart valve Patient right now is having subtherapeutic INR, he is being managed by Coumadin clinic and is recommended to bridge him with Lovenox, he is asking today for refills I will put prescription in I advised to follow-up with Coumadin clinic, PCP and specialists * Assessment & Plan Note - Mariya Murray MD - 02/20/2025 5:28 PM EDT Associated Problem(s): Pre-op evaluation Patient is low to medium risk for low risk procedure, this procedure should proceed as scheduled Patient should continue to take his same Coumadin regimen for a therapeutic INR, no changes needed before the procedure. For dental procedures, including multiple tooth extractions, the ACC/AHA guidelines suggest that warfarin therapy should generally be continued, as the risk of thromboembolism from interrupting anticoagulation outweighs the risk of bleeding. 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
--- OUTSIDE RECORDS SUMMARY | 2025-02-22 11:33 | XMS_ITS | Encounter Summary ---
Author Organization [employer] Address [address] [facility] 7t [place] [address] Care Team Providers Care Musical Engineer Name Role Phone Mariya Juan MD Primary Care Pro vider Encounter Details Date Type Department Care Team (Late st Contact Info) Description 02/22/2025 Orders Only GENERIC EXTERNAL DATA DEPARTMENT Provider, [...] Comments PROTHROMBIN TIME WHOLE BLD POC Routine 02/22/2025 10:37 AM EDT ~PT, ~INR - ANTI COAG CLINIC Routine 02/22/2025 10:37 AM EDT documented in this encounter Results * (ABNORMAL) PROTHROMBIN TIME WHOLE BLD POC (02/22/2025 10:37 AM EDT) Protime 31.2(H) 11.1 - 13.5 sec [facility] 02/22/2025 10:3 7 AM EDT 02/22/2025 10:38 AM EDT us Generic External Data Provider LAB BLOOD ORDERAB LES Final Result [facility] [address] [place] [phone] * (ABNORMAL) ~PT, ~INR - ANTI COAG CLINIC (02/22/2025 10:37 AM EDT) Prothrombin Time INR 2.6(H) 0.9 - 1.1 [facility] Comment:METER #: [id number] TERNATIONAL NORMALIZED RATIO (INR) REFERENCE RANGES Reference RangeFor patients not on anticoagulant therapy: 0.9 - 1.1INR ranges for oral anticoagulanttherapy:For prevention and treatment of venous thrombosis and pulmonary embolism: 2.0 - 3.0For acute myocardial infarction with aspirin therapy: 2.0 - 3.0For acute myocardial infarction without aspirin therapy: 3.0 - 4.0For patients with mechanical prosthetic heart valves: 2.5 - 3.5 02/22/2025 10:3 7 AM EDT 02/22/2025 10:38 AM EDT us Generic External Data Provider LAB BLOOD ORDERAB LES Final Result Performing Organization Address City/State/[facility] Co de Phone Number [facility] [address] [place] [address] [phone] documented in this encounter Visit Diagnoses Not on filedocumented in this encounter Additional Health Concerns Assessment Noted Time PHQ-9 Depression Total Score: 12 024 2:22 PM EDT documented as of this encounter Care Teams Musical Engineer Relationship Specialty Start Date End Date Mariya Juan MD [address] [place] [address] PCP - General Internal Medicine 04/28/23 documented as of this encounter
--- OUTSIDE RECORDS SUMMARY | 2025-02-22 11:33 | XMS_ITS | Clinical Summary ---
Author Organization [employer] Address [address] [place] [address] 7t [place] [address] Care Team Providers Care Pediatrics Physician Name Role Phone Mariya Juan MD Primary [...] 60 tablet 3 024 Active sodium chloride ([place]) 0.65 % nasal spray Administer 1 spray [...] THE WEEK. 60 tablet 2 025 Active hydrOXYzine pamoate (Vistaril) 25 MG capsuleIndication s:Anxiety state TAKE 1 CAPSULE BY MOUTH EVERY 8 HOURS NEEDED FOR ANXIETY 90 capsule 1 025 Active amoxicillin (Amoxil) 500 MG capsuleIndication s:Pre-op evaluation Take 4 capsules before dental procedure 4 capsule 025 Active Enoxaparin Sodium (Lovenox) 100 MG/ML solution prefilled syringeIndication s:Hx of prosthetic mitral valve Inject 1 mL (100 mg) under the skin 2 times daily. lovenox to be given if INR is 2.0 or less and can be stopped once INR is 2.5 or more 6 mL 025 Active hydrOXYzine pamoate (Vistaril) 25 MG capsuleIndication s:Anxiety state TAKE 1 CAPSULE BY MOUTH EVERY 8 HOURS NEEDED FOR ANXIETY 90 capsule 1 024 2024 Discontinued Enoxaparin Sodium (Lovenox) 100 MG/ML solution prefilled syringeIndication s:Hx of prosthetic mitral valve Inject 1 mL (100 mg) under the skin 2 times daily. 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 Plan was to transfer [facility]. Transferred to [facility] [...] bleed improving Has PT in home through [facility]. Assessment & Plan (04/28/2023 10:03 PM EDT): Pt completing OT soon Will refer pt to OT 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 Plan was to transfer [facility]. Transferred to [facility] [...] endocarditis 11/03/2022 Overview (04/28/2023): Was seen at [facility] on 08/17/22 with noted nausea, diaphoresis [...] around the valve. Plan was to transfer [facility]. 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 Assessment & Plan (02/20/2025 5:31 PM EDT): Patient right now is having subtherapeutic INR, he is being managed by Coumadin clinic and is recommended to bridge him with Lovenox, he is asking today for refills I will put prescription in I advised to follow-up with Coumadin clinic, PCP and specialists Substance abuse 11/06/2014 Overview (04/28/2023): Last used [...] Encounters Date Type Department Care Team Description 02/22/2025 Orders Only GENERIC EXTERNAL DATA DEPARTMENT Provider, Generic External Data 02/20/2025 2:15 PM EDT Office Visit [facility] [address] [place], [place] [phone] Mariya Newsome MD Pre-op evaluation (Primary Dx); Hx of prosthetic mitral valve; History of prosthetic heart valve 02/20/2025 Telephone [facility] [address] [place] [address] Blanca Abbott RN 02/20/2025 Travel 02/20/2025 Telephone [facility] [address] [place] [address] Mariya Juan MD critical results 02/13/2025 Telephone [facility] [address] [place] [address] Olga Mendes, JOLENE Pre-op Exam 01/28/2025 Telephone [facility] [address] [place] [address] Mariya Juan MD Critical Lab 01/25/2025 Refill [facility] [address] [place] [address] Daphnie Vann MD Anxiety state 01/08/2025 Orders Only [facility] [address] [place] [address] Yanira Lei MD Hx of prosthetic mitral valve 01/08/[address] [address] Mariya Juan MD Med Refill 01/07/2025 Telephone [facility] [address] [place] [address] Mariya Juan MD critical lab 12/23/2024 Refill [facility] [address] [place] [address] Mariya Juan MD Mechanical heart valve present 12/19/2024 Orders Only GENERIC EXTERNAL DATA DEPARTMENT Provider, Generic External Data 12/10/2024 Refill [facility] [address] [place] [address] Mariya Juan MD Mild intermittent asthma without complication 12/07/2024 Orders Only GENERIC EXTERNAL DATA DEPARTMENT Provider, Generic External Data 11/30/2024 Telephone [facility] [address] [place] [address] Mariya Juan MD Medication Question 11/30/2024 Telephone [facility] [address] [place] [address] Lyndsay Badillo [place] February Recall from Last 3 Months Immunizations Name Administration [...] your housing situation today? I have nancy sing 07/24/[address] you li [...] COAG CLINIC Routine 02/22/2025 10:37 AM EDT PROTHROMBIN TIME WHOLE BLD POC Routine 12/19/2024 2:04 PM EST ~PT, ~INR - ANTI COAG CLINIC Routine 12/19/2024 2:04 PM EST PROTHROMBIN TIME WHOLE BLD POC Routine 12/07/2024 3:10 PM EST ~PT, ~INR - ANTI COAG CLINIC Routine 12/07/2024 3:10 PM EST HEPATITIS C AB W/REFL TO [...] WHOLE BLD POC (02/22/2025 10:37 AM EDT) Only the most recent of3 resultswithin the time period is included. Protime 31.2(H) 11.1 - 13.5 sec [facility] 02/22/2025 10:3 7 AM EDT 02/22/2025 10:38 AM EDT us Generic External Data Provider LAB BLOOD ORDERAB LES Final Result [facility] [address] [place] [phone] * (ABNORMAL) ~PT, ~INR - ANTI COAG CLINIC (02/22/2025 10:37 AM EDT) Only the most recent of3 resultswithin the time period is included. Pathologist [facility] Prothrombin Time INR 2.6(H) 0.9 - 1.1 [facility] Comment:METER #: [id number] TERNATIONAL NORMALIZED RATIO (INR) REFERENCE RANGES Reference [...] AM EDT 02/22/2025 10:38 AM EDT us [employer] External Data Provider LAB BLOOD ORDERAB LES Final Result Performing Organization Address [facility]/ZIP Co de Phone Number [facility] [address] [place] [phone] * Hepatitis C Antibody with Reflex to HCV, RNA, Quantitative, Real-Time PCR (09/14/2024 4:32 PM EST) [facility] Hepatitis C Antibody Nonreactive Nonreactive [facility] Comment:Antibodies to HCV no t detected; does not exclude early acuteHCV infection. Blood Venous blood specimen / Unknown 09/14/2024 4:32 PM EST 09/14/2024 6:05 PM EST us Mariya Cho MD LAB BLOOD ORDERAB LES Final Result Performing Organization Address City/[facility]/ZIP Co de Phone Number [facility] [address] [place] [phone] * HIV-1/2 Antigen and Antibodies, Fourth Generation, with Reflexes (09/14/2024 4:32 PM EST) [facility] HIV AB/AG Nonreactive Nonreactive [facility] Comment:HIV-1 p24 Ag and/or HIV-1/HIV-2 Ab not detected.A test result that is nonreactive does not exclude thepossibility of exposure to or infection with HIV-1 and/orHIV-2. Nonreactive results in this assay for individualswith prior exposure to HIV-1 and/or HIV-2 may be due toantigen and antibody levels that are below the limit ofdetection of this assay.The [employer] HIV Ag/Ab Combo assay result andsupplemental assay results should be interpreted inconjunction with the patient's clinical presentation,history and other laboratory results. If the results areinconsistent with clinical evidence, additional testing issuggested to confirm the result. Blood Venous blood specimen / Unknown 09/14/2024 4:32 PM EST 09/14/2024 6:05 PM EST us Mariya Cho MD LAB BLOOD ORDERAB LES Final Result [facility] [address] [place] [phone] * (ABNORMAL) Lipid Panel, Standard (09/14/2024 4:23 PM EST) Triglycerides 194(H) <150 mg/dL [facility] Comment:Desirable Triglyceri de: less than 150 mg/dLBorderline High Triglyceride 150-199 mg/dLHigh Triglyceride: 200-499 mg/dLVery High Triglyceride: greater than or equal to 5OO mg/dL Cholesterol 131 <200 mg/dL [facility] Comment:Desirable Cholestero l: less than 200 mg/dLBorderline High Cholesterol: 200-239 mg/dLHigh Cholesterol: greater than 239 mg/dL LDL Cholesterol Calculated 62 <100 mg/dL [facility] Comment:Desirable LDL: less than 100 mg/dLNear Optimal/Above Optimal LDL: 110- 129 mg/dLBorderline High LDL: 130-159 mg/dLHigh LDL: 160-189 mg/dLVery High LDL: greater than or equal to 190 mg/dL HDL Cholesterol 31(L) >40 mg/dL [facility] Comment:Desirable HDL: great er than 40 mg/dL Note: This HDL assay may give artificially low results in patients with liver disease. Blood Venous blood specimen / Unknown 09/14/2024 4:23 PM EST 09/14/2024 6:05 PM EST Mariya Cho MD LAB BLOOD ORDERAB LES Final Result [facility] [address] [place] [phone] from Last 3 Months or Most Recently Relevant to Health Maintenance Insurance [facility]ARE < 65 DENIS ERNANDEZ [id number] Care Teams Pediatrics Physician Relationship Specialty Start Date End Date Mariya Juan MD [address] [place] [address] PCP - General Internal Medicine 04/28/23
--- OUTSIDE RECORDS SUMMARY | 2025-02-22 11:33 | XMS_ITS | Encounter Summary ---
Author Organization [employer] Address [address] [place] [address] 7t [place] [address] Care Team Providers Care Health Care / Medical Job Titles Name Role Phone Kay Dennis Primary Care Provider +1- [phone] Mariya Juan MD Primary Care Pro vider Encounter Details Date Type Department Care Team (Late st Contact Info) Description 02/09/2023 Telephone [facility] [address] [place] [phone] Kay Dennis FNP [address] [place] [address] Dept [place] [address] Social History Tobacco Use Types Packs/Day Years [...] on filedocumented in this encounter Care Teams Health Care / Medical Job Titles Relationship Specialty Start Date End Date Kay Dennis FNP PCP - General Family Medicine 07/05/22 04/27/23 Mariya Juan MD [address] [place] [address] PCP - General Internal Medicine 04/28/23 documented as of this encounter
--- OUTSIDE RECORDS SUMMARY | 2025-02-22 11:33 | XMS_ITS | Encounter Summary ---
Author Organization [employer] Address [address] [place] [address] 7 [place] [address] Care Team Providers Care Warehouse Sorter Name Role Phone Mariya Juan MD Primary Care Pro vider Reason for Visit * Reason Onset Date Comments Med Refill 04/20/2024 Encounter Details Date Type Department Care Team ([facility] st Contact Info) Description 04/20/2024 Telephone [facility] [address] [place], [place] [phone] Mariya Juan MD [address] [place] [address] Med Refill Social History Tobacco Use Types [...] EDT Telephone call placed to Freida at [facility] Coumadin clinic. Gave orders to continue [...] PM EDT Received call from Freida from [facility] coumadin clinic. Pt back today for recheck, [...] 04/20/2024 4:01 PM EDT TC placed to [facility] Anticoagulation to inquire when pt last got INR drawn. According to the studio receptionist the pt was to come for [...] solution prefilled syringe To be [facility] to: [id number] [id number] [facility] documented in this encounter Plan of Treatment Not on file documented as of this encounter Visit Diagnoses Not on filedocumented in this encounter Additional Health Concerns Assessment Noted Time PHQ-9 Depression Total Score: 04/28/20 23 2:32 PM EDT documented as of this encounter Care Teams Warehouse Sorter Relationship Specialty Start Date End Date Mariya Juan MD [address] [place] [phone] PCP - General Internal Medicine 04/28/23 documented as of this encounter
--- OUTSIDE RECORDS SUMMARY | 2025-02-22 11:33 | XMS_ITS | Data Portability ---
Author Organization [place] [facility], All[facility] Address [address] [facility] [address] [place] [phone] Care Team Providers Care Food Aide Name Role Phone NAME, KEIRA Primary Care [...] 50 mcg/actua tion nasal spray,darrin pension [address] [id number], [address] [place], [place], [phone], 15:20:32 Patient TargetsNo targets recorded. Patient InstructionsNo instructions recorded. Reason for Referral None Reported. Problems Name Problem SNOMED Code Status Onset Date Resolution Date Notes Provider Name and Address Organization Details Recorded Time Amygdalolith 6154899 Active 2023 CHANI KIM PA-C [address] [place] [address], [phone], [place] [facility] [place] 15:18:54 Allergic rhinitis 19579949 Active 2023 CHANI KIM PA-C [address] [place] [address], [phone], [place] [facility] [place] 15:20:36 Problem Notes None recorded. Procedures Surgical History Date Name Laterality Status Provider Name and Address Organization Details Recorded Time Heart Surgery completed Daphnie Welsh [place] [facility] 04/11/2024 15:01:33 Imaging Results None recorded. [...] Updated DateTime 08/30/2024 190.5 cm 30 kg/m2 940359.17 g Nelli Fishman [place] [facility] 08/30/2024 10:37:44 Date Recorded Body height Body mass index (BMI) Body weight Provider Name and Address Organization Details Last Updated DateTime 04/11/2024 190.5 cm 30 kg/m2 247941.17 g Daphnie Welsh [place] [facility] 04/11/2024 14:58:50 Social History None recorded. Functional Status None recorded. Mental Status None recorded. Family History Nothing Reported. Medical History No medical history recorded. Past Encounters Encounter ID Performer Location Encounter Start Date Encounter Closed Date Diagnosis/Indication Diagnosis SNOMED-CT Code Diagnosis ICD10 Code Diagnosis Note [id number] CHANI KIM PA-C [facility] [address] [place] [address] 04/11/2024 14:35:25 04/11/2024 15:13:40 Amygdalolith 8021059 J35.8 Allergic rhinitis 316876 04 J30.89 [id number] EDDIE MONTES MD [facility] [address] [place] [address] 08/30/2024 10:28:36 08/30/2024 10:58:17 Amygdalolith 7452057 J35.8 Discourage d surgery. Recommend observatio n. [...] Roberts Member ID Guarantor Name 04/11/2024 1 [facility] - DOS ON OR AFTER 2023 - MEDICARE ADVANTAGE [place] & [place] (MEDICARE REPLACEMENT/AD VANTAGE - PPO) Ludin Mendes [id number] Ludin Mendes Notes Date Note Type Note [...] not continue it. CHANI KIM PA-C [address], [phone], [facility] - [facility] 04/11/2024 15:25:28 08/30/2024 text/html 38-year-old male presents for evaluation of tonsil stones. Bleeding has resolved. He has not been using flonase but finds mouth rinses helpful. He is less bothered than before. EDDIE MONTES MD [address] [place] [address],[address], [phone], [facility] - [facility] 08/30/2024 11:00:13
--- OUTSIDE RECORDS SUMMARY | 2025-02-22 11:33 | XMS_ITS | Encounter Summary ---
Author Organization [employer] Address [address] [place] [address] 7t [place] [address] Care Team Providers Care Pipe Setter Name Role Phone Kay Dennis EARLY HEAD START DIRECTOR Primary Care Provider +1- [phone] Mariya Juan MD Primary Care Pro vider Encounter Details Date Type Department Care Team (Late st Contact Info) Description 01/17/2023 Telephone [facility]ICINE [address] [place] [phone] Kay Dennis EARLY HEAD START DIRECTOR [address] [place] [address] Dept [place] [address] Social History Tobacco Use Types Packs/Day Years [...] dosing. Please call her to advised at [phone]. documented in this encounter Plan of Treatment Not on file documented as of this encounter Visit Diagnoses Not on filedocumented in this encounter Care Teams Pipe Setter Relationship Specialty Start Date End Date Kay Dennis FNP PCP - General Family Medicine 07/05/22 04/27/23 Mariya Juan MD [address] [place] [address] PCP - General Internal Medicine 04/28/23 documented as of this encounter
--- OUTSIDE RECORDS SUMMARY | 2025-02-22 11:33 | XMS_ITS | Encounter Summary ---
Author Organization [employer] Address [address] [place] [address] 7t [place] [address] Care Team Providers Care Best Worker Name Role Phone Kay Dennis Sofie ROACH Primary Care Provider +1- [phone] Mariya Juan MD Primary Care Pro vider Encounter Details Date Type Department Care Team (Late st Contact Info) Description 12/16/2022 Orders Only [facility] [address] [place] [address] Aida Villegas LPN Social History Tobacco Use [...] EST) Protime 45.7(H) 11.1 - 13.5 sec [facility] 12/16/2022 2:35 PM EST 12/16/2022 2:36 PM EST [facility] External Provider LAB BLO OD ORDERABLES Final Result Performing Organization Address City/[facility] Co de Phone Number [facility] [address] [place] [phone] * (ABNORMAL) ~PT, ~INR - ANTI COAG CLINIC (12/16/2022 2:35 PM EST) Prothrombin Time INR 3.8(H) 0.9 - 1.1 [facility] Comment:METER #: [id number] TERNATIONAL NORMALIZED RATIO (INR) REFERENCE RANGES Reference [...] 2:35 PM EST 12/16/2022 2:36 PM EST [facility] External Provider LAB BLO OD ORDERABLES Final Result Performing Organization Address City/[facility] Co de Phone Number [facility] [address] [place] [phone] documented in this encounter Visit Diagnoses Not on filedocumented in this encounter Care Teams Best Worker Relationship Specialty Start Date End Date Kay Dennis FNP PCP - General Family Medicine 07/05/22 04/27/23 Mariya Juan MD [address] [place] [address] PCP - General Internal Medicine 04/28/23 documented as of this encounter
--- OUTSIDE RECORDS SUMMARY | 2025-02-22 11:33 | XMS_ITS | Encounter Summary ---
Author Organization [employer] Address [address] [place] [address] 7 [place] [address] Care Team Providers Care Telecom Assistant Name Role Phone Maryia Juan MD Primary Care Pro vider Reason for Visit * Reason Onset Date Comments Med Refill 01/08/2025 Encounter Details Date Type Department Care Team ([facility] st Contact Info) Description 01/08/2025 Telephone [facility] [address] [place] [address] Mariya Juan MD [address] [place] [address] Med Refill Social History Tobacco Use Types [...] solution prefilled syringe [facility]: [id number] [place], [place] - [address] [facility] documented in this encounter Plan of Treatment Not on file documented as of this encounter Visit Diagnoses Not on filedocumented in this encounter Additional Health Concerns Assessment Noted Time PHQ-9 Depression Total Score: 12 024 2:22 PM EDT documented as of this encounter Care Teams Telecom Assistant Relationship Specialty Start Date End Date Mariya Juan MD [address] [place] [phone] PCP - General Internal Medicine 04/28/23 documented as of this encounter
== END 2025-02-22 10:46 | disposition home or self-care (01) ==
LOC: HO.ACS 10:33
PROVIDERS: PCP Student in an Organized Health Care Education/Training Program; Visit Provider Internal Medicine Medical Oncology
DX: Z79.01 Long term (current) use of anticoagulants (principal)

== ENCOUNTER → 2025-02-22 10:33 | Outpatient (BNVA) | payer OTHER, SELFPAY | PROVIDERS: PCP Student in an Organized Health Care Education/Training Program; Visit Provider Internal Medicine Medical Oncology | DX: Z95.2 Presence of prosthetic heart valve (principal); Z79.01 Long term (current) use of anticoagulants; Z51.81 Encounter for therapeutic drug level monitoring | CPT/HCPCS: 85610; 99211 ==

== ENCOUNTER 2025-03-01 14:37 | Outpatient (AMB) | payer OTHER, SELFPAY ==
--- NOTE | 2025-03-01 14:47 | MHC.OFFVISCO ---
Intake Intake Visit Reasons: Anticoagulation Allergies hydrocodone [From VICODIN] Allergy (Unknown, Verified 03/01/25 14:43) GI UPSET Medication List - Last Reconciled 03/01/25 by Lindsay Couch RN acetaminophen 325 mg PO QID PRN 7 days acetaminophen ER (Tylenol Arthritis Pain) 1,300 mg PO Q8H PRN albuterol sulfate 90 mcg/actuation (ProAir HFA) 2 puffs inhalation Q4-6H PRN atorvastatin 20 mg PO DAILY blood pressure test kit-large As directed buprenorphine-naloxone 8-2 mg (Suboxone) 1 film sublingual BID celecoxib (Celebrex) 200 mg PO DAILY PRN coenzyme Q10 (Co Q-10) PO fluticasone propionate 50 mcg/actuation sprays intranasal hydroxyzine pamoate 25 mg PO TID inhalational spacing device ([employer] [facility] spacer) As directed loratadine 10 mg PO DAILY melatonin 5 mg PO BEDTIME PRN omeprazole 20 mg PO DAILY ondansetron 4 mg PO Q8H PRN 4 days ondansetron HCl 4 mg PO Q8H PRN polyethylene glycol 3350 (Miralax) 17 grams PO DAILY sodium chloride 0.65% (Deep Sea Nasal) sprays intranasal warfarin 7.5 mg See Protocol PO 2XW warfarin 10 mg See Protocol PO 5XW Nursing Note INR: 3.3- in therapeutic range of 2.5-3.5 Medications and supplements reviewed No changes in health, diet, medications, or supplements, Denies any signs and symptoms of bleeding or bruising or clotting. Bleeding, bruising, clotting discussed Nutritional guidance given Dose: cont reg dosing- 7.5mg x 6, 3.75mg x 1 F/U INR: 1 week Patient verbalizes understanding of instructions given pt states missed a dose of warfariin on tuesday- enc to call acs with missed doses Anti-Coag Initial Assessment Social Hx Patient Tobacco Use Status: Former Tobacco user Tobacco use type: Cigarette alcohol intake: never Alcohol intake frequency: does not drink Coding Level of Care Code Est Patient Level 1 Diagnoses Current use of anticoagulant therapy Z79.01 Assessment & Plan Assessment & Plan (1) Current use of anticoagulant therapy: Code(s): Z79.01 - vermin exterminator (current) 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
[2025-03-01 14:49] LABS: Prothrombin Time Whole Bld POC 39.7 sec (11.1-13.5); ~PT, ~INR - Anti Coag Clinic 3.3 (0.9-1.1)
--- OUTSIDE RECORDS SUMMARY | 2025-03-01 15:17 | XMS_ITS | Encounter Summary ---
Author Organization [employer] Address [address] [place] [address] 7t [place] [address] Care Team Providers Care Port Patrol Officer Name Role Phone Kay Dennis Primary Care Provider +1- [phone] Mariya Juan MD Primary Care Pro vider Encounter Details Date Type Department Care Team (Late st Contact Info) Description 02/09/2023 Telephone [facility] MEDICINE [address] [place] [phone] Kay Dennis FNP [address] [place] [address] Dept [place] [address] Social History Tobacco Use Types Packs/Day Years [...] on filedocumented in this encounter Care Teams Port Patrol Officer Relationship Specialty Start Date End Date Kay Dennis FNP PCP - General Family Medicine 07/05/22 04/27/23 Mariya Juan MD [address] [place] [phone] PCP - General Internal Medicine 04/28/23 documented as of this encounter
--- OUTSIDE RECORDS SUMMARY | 2025-03-01 15:17 | XMS_ITS | Encounter Summary ---
Author Organization [employer] Address [address] [facility] 7t [place] [address] Care Team Providers Care Computer Application Developer Name Role Phone Mariya Juan MD Primary Care Pro vider Encounter Details Date Type Department Care Team (Late st Contact Info) Description 03/01/2025 Orders Only GENERIC EXTERNAL DATA DEPARTMENT Provider, [...] Comments PROTHROMBIN TIME WHOLE BLD POC Routine 03/01/2025 2:46 PM EDT ~PT, ~INR - ANTI COAG CLINIC Routine 03/01/2025 2:46 PM EDT documented in this encounter Results * (ABNORMAL) PROTHROMBIN TIME WHOLE BLD POC (03/01/2025 2:46 PM EDT) Protime 39.7(H) 11.1 - 13.5 sec [facility] 03/01/2025 2:46 PM EDT 03/01/2025 2:48 PM EDT us Generic External Data Provider LAB BLOOD ORDERAB LES Final Result [facility] [address] [place] [phone] * (ABNORMAL) ~PT, ~INR - ANTI COAG CLINIC (03/01/2025 2:46 PM EDT) Prothrombin Time INR 3.3(H) 0.9 - 1.1 [facility] Comment:METER #: [id number] TERNATIONAL NORMALIZED RATIO (INR) REFERENCE RANGES Reference RangeFor patients not on anticoagulant therapy: 0.9 - 1.1INR ranges for oral anticoagulanttherapy:For prevention and treatment of venous thrombosis and pulmonary embolism: 2.0 - 3.0For acute myocardial infarction with aspirin therapy: 2.0 - 3.0For acute myocardial infarction without aspirin therapy: 3.0 - 4.0For patients with mechanical prosthetic heart valves: 2.5 - 3.5 03/01/2025 2:46 PM EDT 03/01/2025 2:48 PM EDT us Generic External Data Provider LAB BLOOD ORDERAB LES Final Result [facility] [address] [place] [phone] [phone] documented in this encounter Visit Diagnoses Not on filedocumented in this encounter Additional Health Concerns Assessment Noted Time PHQ-9 Depression Total Score: 12 024 2:22 PM EDT documented as of this encounter Care Teams Computer Application Developer Relationship Specialty Start Date End Date Mariya Juan MD [address] [place] [phone] PCP - General Internal Medicine 04/28/23 documented as of this encounter
--- OUTSIDE RECORDS SUMMARY | 2025-03-01 15:17 | XMS_ITS | Clinical Summary ---
Author Organization [facility] Address [address] [place] [address] Phone Care Team Providers Care Dermatology Physician Assistant Name Role Phone Sharon Baum MD Primary Care Provider [phone] Allergies No known active allergies Medications Buprenorphine [...] to 49 Years) Completed 04/28/2023, 02/17/2013 Insurance [facility] ([id number]) [facility] ([id number]) [place] E[place]NDEZ [id number] Care Teams Dermatology Physician Assistant Relationship Specialty Start Date End Date Sharon Baum MD [address] [place] [phone] PCP - General Internal Medicine 10/20/22
--- OUTSIDE RECORDS SUMMARY | 2025-03-01 15:17 | XMS_ITS | Clinical Summary ---
Author Organization [employer] Address [address] [place] [address] 7t [place] [address] Care Team Providers Care Multigraph Operator Name Role Phone Mariya Juan MD [...] 60 tablet 3 024 Active sodium chloride (Olpe) 0.65 % nasal spray Administer 1 spray into each nostril if needed for congestion. 15 mL 2 024 2024 Active atorvastatin (Lipitor) 20 MG tabletIndications :Mixed hyperlipidemia Take 1 tablet (20 mg) by mouth Once per day. 30 tablet 3 024 2024 Active albuterol 108 (90 Base) MCG/ACT inhalerIndication [...] 2.5 or more 6 mL 025 Active ondansetron ODT (Zofran-ODT) 4 MG disintegrating tablet DISSOLVE 2 TABLETS ON TOP OF THE TONGUE THEN SWALLOW EVERY 12 HOURS 60 tablet 025 Active polyethylene glycol, PEG, 3350 (MiraLax) 17 GM/SCOOP powderIndications :Constipation, unspecified constipation type MIX AND DRINK 17 GM BY MOUTH EVERY DAY IF NEEDED FOR CONSTIPATION 510 g 2 Active polyethylene glycol, PEG, 3350 (MiraLax) 17 GM/SCOOP powderIndications :Constipation, unspecified constipation type MIX AND DRINK 17 GM BY MOUTH EVERY DAY IF NEEDED FOR CONSTIPATION 510 g 2 025 2024 Discontinued(R eorder (will not trigger notification to Pharmacy)) ondansetron ODT (Zofran-ODT) 4 MG disintegrating tablet DISSOLVE 2 TABLETS ON TOP OF THE TONGUE THEN SWALLOW EVERY 12 HOURS 60 tablet 025 2024 Discontinued(R eorder (will not trigger notification to Pharmacy)) Enoxaparin Sodium (Lovenox) 100 MG/ML solution prefilled [...] weakness 04/28/2023 Overview (04/28/2023): Was seen at [facility] on 08/17/22 with noted nausea, diaphoresis in exam room, discomfort, profound fatigue, referred to [facility] now. Went to [facility] on 08/18/22 and was admitted for infection and started antibiotics. Blood cultures on 08/18/22 and 08/20/22 grew MSSA. 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 Plan was to transfer [facility]. Transferred to [facility] [place] 08/21/22 for further [...] bleed improving Has PT in home through [facility]. 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 Went to [facility] on 08/18/22 and was admitted for infection and started antibiotics. Blood cultures on 08/18/22 and 08/20/22 grew MSSA. 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 Plan was to transfer [facility]. Transferred to [facility] on 08/21/22 for further [...] endocarditis 11/03/2022 Overview (04/28/2023): Was seen at [facility] on 08/17/22 with noted nausea, diaphoresis in exam room, discomfort, profound fatigue, referred to [facility] now. Went to [facility] on 08/18/22 and was admitted for infection and started antibiotics. Blood cultures on 08/18/22 and 08/20/22 grew MSSA. 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 Plan was to transfer [facility]. Transferred to [facility] [place] 08/21/22 for further [...] Encounters Date Type Department Care Team Description 03/01/2025 Orders Only GENERIC EXTERNAL DATA DEPARTMENT Provider, Generic External Data 02/28/2025 Telephone [facility] [address] [place] [address] Mariya Juan MD Appointment 02/27/2025 Refill [facility] [address] [place] [address] Mariya Juan MD Constipation, unspecified constipation type 02/22/2025 Orders Only GENERIC EXTERNAL DATA DEPARTMENT Provider, Generic External Data 02/20/2025 2:15 PM EDT Office Visit [facility] [address] [facility] [place] [address] Mariya Newsoem MD Pre-op evaluation (Primary Dx); Hx of prosthetic mitral valve; History of prosthetic heart valve 02/20/2025 Telephone [facility] [address] [facility] [place] [address] Blanca Abbott, JOLENE 02/20/2025 Travel 02/20/2025 Telephone [facility] [address] [place] [address] Mariya Juan MD critical results 02/13/2025 Telephone [facility] [address] [place] [address] Olga Mendes, JOLENE Pre-op Exam 01/28/2025 Telephone [facility] [address] [facility] [place] [address] Maryia Juan MD Critical Lab 01/25/2025 Refill [facility] [address] [place] [address] Daphnie Vann MD Anxiety state 01/08/2025 Orders Only [facility] [address] [place] [address] Yanira Lei MD Hx of prosthetic mitral valve 01/08/2025 Telephone [facility] [address] [place] [address] Mariya Juan MD Med Refill 01/07/2025 Telephone [facility] [address] [place] [address] Mariya Juan MD critical lab 12/23/2024 Refill [facility] [address] [place] [address] Mariya Juan MD Mechanical heart valve present 12/19/2024 Orders Only GENERIC EXTERNAL DATA DEPARTMENT Provider, Generic External Data 12/10/2024 Refill [facility] [address] [place] [address] Mariya Juan MD Mild intermittent asthma without complication 12/07/2024 Orders Only GENERIC EXTERNAL DATA DEPARTMENT Provider, Generic External Data from Last 3 Months Immunizations Name Administration Dates Next Due DTaP 07/18/1989, 7,12/20/1986,11/19 Hep B, Adolescent or Pediatric 12/10/1998,1997,1998 Hib (HbO) 10/20/1987 Influenza injectable quadriv alent IIV4 with [...] ( season) 2024 04/28/2023, 03/17/2022, 02/09/2022 Depression Screening 07/24/2025 07/24/2024, 07/24/20 24 SDOH [...] COAG CLINIC Routine 03/01/2025 2:46 PM EDT PROTHROMBIN TIME WHOLE BLD POC Routine 02/22/2025 [...] WHOLE BLD POC (03/01/2025 2:46 PM EDT) Only the most recent of4 resultswithin the time period is included. Protime 39.7(H) 11.1 - 13.5 sec [facility] 03/01/2025 2:46 PM EDT 03/01/2025 2:48 PM EDT Generic External Data Provider LAB BLOOD ORDERAB LES Final Result Performing Organization Address [facility] Co de Phone Number [facility] [address] [place] [phone] * (ABNORMAL) ~PT, ~INR - ANTI COAG CLINIC (03/01/2025 2:46 PM EDT) Only the most recent of4 resultswithin the time period is included. [facility] Prothrombin Time INR 3.3(H) 0.9 - 1.1 [facility] Comment:METER #: [id number] TERNATIONAL NORMALIZED RATIO (INR) REFERENCE RANGES Reference [...] 2:46 PM EDT 03/01/2025 2:48 PM EDT Generic External Data Provider LAB BLOOD ORDERAB LES Final Result Performing Organization Address City/[facility] Co de Phone Number [facility] [address] [place] [phone] * Hepatitis C Antibody with Reflex to HCV, RNA, Quantitative, Real-Time PCR (09/14/2024 4:32 PM EST) Pathologist [facility] Hepatitis C Antibody Nonreactive Nonreactive [facility] Comment:Antibodies to HCV no t detected; does not exclude early acuteHCV infection. Blood Venous blood specimen / Unknown 09/14/2024 4:32 PM EST 09/14/2024 6:05 PM EST us Mariya Cho MD LAB BLOOD ORDERAB LES Final Result Performing Organization Address [facility] Co de Phone Number [facility] [address] [place] [address] [phone] * HIV-1/2 Antigen and Antibodies, Fourth Generation, with Reflexes (09/14/2024 4:32 PM EST) Pathologist [facility] HIV AB/AG Nonreactive Nonreactive [facility] Comment:HIV-1 p24 Ag and/or HIV-1/HIV-2 Ab not detected.A test result that is nonreactive does not exclude thepossibility of exposure to or infection with HIV-1 and/orHIV-2. Nonreactive results in this assay for individualswith prior exposure to HIV-1 and/or HIV-2 may be due toantigen and antibody levels that are below the limit ofdetection of this assay.The [employer] HIV Ag/Ab Combo assay result andsupplemental assay results should be interpreted inconjunction with the patient's clinical presentation,history and other laboratory results. If the results areinconsistent with clinical evidence, additional testing issuggested to confirm the result. Blood Venous blood specimen / Unknown 09/14/2024 4:32 PM EST 09/14/2024 6:05 PM EST us Mariya Cho MD LAB BLOOD ORDERAB LES Final Result Performing Organization Address City/[facility]/ZIP Co de Phone Number [facility] [address] [place] [address] [phone] * (ABNORMAL) Lipid Panel, Standard (09/14/2024 4:23 PM EST) Triglycerides 194(H) <150 mg/dL [facility] Comment:Desirable Triglyceri de: less than 150 mg/dLBorderline High Triglyceride 150-199 mg/dLHigh Triglyceride: 200-499 mg/dLVery High Triglyceride: greater than or equal to 5OO mg/dL Cholesterol 131 <200 mg/dL [facility] Comment:Desirable Cholestero l: less than 200 mg/dLBorderline High Cholesterol: 200-239 mg/dLHigh Cholesterol: greater than 239 mg/dL LDL Cholesterol Calculated 62 <100 mg/dL [facility] Comment:Desirable LDL: less than 100 mg/dLNear Optimal/Above Optimal LDL: 110- 129 mg/dLBorderline High LDL: 130-159 mg/dLHigh LDL: 160-189 mg/dLVery High LDL: greater than or equal to 190 mg/dL HDL Cholesterol 31(L) >40 mg/dL [facility] Comment:Desirable HDL: great er than 40 mg/dL Note: This HDL assay may give artificially low results in patients with liver disease. Blood Venous blood specimen / Unknown 09/14/2024 4:23 PM EST 09/14/2024 6:05 PM EST Mariya Cho MD LAB BLOOD ORDERAB LES Final Result Performing Organization Address City/State/[facility] Co de Phone Number [facility] [address] [place] [phone] from Last 3 Months or Most Recently Relevant to Health Maintenance Insurance [facility] ONE CARE < 65 DENIS ERNANDEZ [id number] Care Teams Multigraph Operator Relationship Specialty Start Date End Date Mariya Juan MD [address] [place] [phone] PCP - General Internal Medicine 04/28/23
--- OUTSIDE RECORDS SUMMARY | 2025-03-01 15:17 | XMS_ITS | Encounter Summary ---
Author Organization [employer] Address [address] [place] [address] 7t [place] [address] Care Team Providers Care Barrelhead Inspector Name Role Phone Kay Dennis UNDERCUTTER OPERATOR Primary Care Provider [phone] Mariya Juan MD Primary Care Pro vider Encounter Details Date Type Department Care Team (Late st Contact Info) Description 01/17/2023 Telephone [facility] [address] [place] [phone] Kay Dennis UNDERCUTTER OPERATOR [address] [place] [address] Dept of [place] [address] Social History Tobacco Use Types Packs/Day Years [...] dosing. Please call her to advised at [phone]. documented in this encounter Plan of Treatment Not on file documented as of this encounter Visit Diagnoses Not on filedocumented in this encounter Care Teams Barrelhead Inspector Relationship Specialty Start Date End Date Kay Dennis FNP PCP - General Family Medicine 07/05/22 04/27/23 Mariya Juan MD [address] [place] [phone] PCP - General Internal Medicine 04/28/23 documented as of this encounter
--- OUTSIDE RECORDS SUMMARY | 2025-03-01 15:17 | XMS_ITS | Encounter Summary ---
Author Organization [employer] Address [address] [facility] 7t [place] [address] Care Team Providers Care Pot Fluxer Name Role Phone Kay Dennis Primary Care Provider [phone]- [phone] Mariya Juan MD Primary Care Pro vider Reason for Visit * Reason Onset Date Comments Durable Medical Equipment 02/25/2023 Encounter Details Date Type Department Care Team (Late st Contact Info) Description 02/25/2023 Telephone [facility] [address] [place] [phone] Kay Dennis FNP [address] [place] [address] Dept [place] [address] Durable Medical Equipment Social History Tobacco Use [...] Please sent to script [email or web address] If any questions please contact Tammy at [phone] documented in this encounter Plan of Treatment Not on file documented as of this encounter Visit Diagnoses Not on filedocumented in this encounter Care Teams Pot Fluxer Relationship Specialty Start Date End Date Kay Dennis FNP PCP - General Family Medicine 07/05/22 04/27/23 Mariya Juan MD [address] [place] [address] PCP - General Internal Medicine 04/28/23 documented as of this encounter
--- OUTSIDE RECORDS SUMMARY | 2025-03-01 15:17 | XMS_ITS | Encounter Summary ---
Author Organization [employer] Address [address] [place] [address] 7t [place] [address] Care Team Providers Care Service Cashier Name Role Phone Kay Dennis Sofie ROACH Primary Care Provider [phone]- [phone] Mariya Juan MD Primary Care Pro vider Encounter Details Date Type Department Care Team (Late st Contact Info) Description 12/16/2022 Orders Only [facility] [address] [place] [address] Aida Villegas LPN Social History Tobacco Use [...] EST) Protime 45.7(H) 11.1 - 13.5 sec [facility] 12/16/2022 2:35 PM EST 12/16/2022 2:36 PM EST [facility] External Provider LAB BLO OD ORDERABLES Final Result Performing Organization Address City/[facility] Co de Phone Number [facility] [address] [place] [phone] * (ABNORMAL) ~PT, ~INR - ANTI COAG CLINIC (12/16/2022 2:35 PM EST) Prothrombin Time INR 3.8(H) 0.9 - 1.1 [facility] Comment:METER #: [id number] TERNATIONAL NORMALIZED RATIO (INR) REFERENCE RANGES Reference [...] 2:35 PM EST 12/16/2022 2:36 PM EST [facility] External Provider LAB BLO OD ORDERABLES Final Result Performing Organization Address City/[facility] Co de Phone Number [facility] [address] [place] [phone] documented in this encounter Visit Diagnoses Not on filedocumented in this encounter Care Teams Service Cashier Relationship Specialty Start Date End Date Kay Dennis FNP PCP - General Family Medicine 07/05/22 04/27/23 Mariya Juan MD [address] [place] [address] PCP - General Internal Medicine 04/28/23 documented as of this encounter
--- OUTSIDE RECORDS SUMMARY | 2025-03-01 15:17 | XMS_ITS | Encounter Summary ---
Author Organization [employer] Address [address] [place] [address] [place] [address] Care Team Providers Care Safety Intern Name Role Phone Mariya Juan MD Primary Care Pro vider Reason for Visit * Reason Onset Date Comments Appointment 02/28/2025 Encounter Details Date Type Department Care Team ([facility] st Contact Info) Description 02/28/2025 Telephone [facility] [address] [place], [place] [phone] Mariya Juan MD [address] [place] [address] Appointment Social History Tobacco Use Types Packs/Day Years [...] the past 12 months, has t he [employer], gas, oil or water [employer] threatened to shut off services in your [...] Telephone Encounter - Lyndsay Badillo MA - 02/28/2025 2:00 PM EDT Telephone call to patient to schedule an appointment. No answer, Left voicemail to return call to clinic. letter sent. Visit type: Office Visit Appointment notes: Follow up meds Month due: April With: Ho Please schedule appointment above if patient returns call documented in this encounter Plan of Treatment Not on file documented as of this encounter Visit Diagnoses Not on filedocumented in this encounter Additional Health Concerns Assessment Noted Time PHQ-9 Depression Total Score: 12 024 2:22 PM EDT documented as of this encounter Care Teams Safety Intern Relationship Specialty Start Date End Date Mariya Juan MD [address] [place] [phone] PCP - General Internal Medicine 04/28/23 documented as of this encounter
--- OUTSIDE RECORDS SUMMARY | 2025-03-01 15:17 | XMS_ITS | Encounter Summary ---
Author Organization [facility] Address [address] [place] [address] 7 [place] [address] Care Team Providers Care Master Glazier Name Role Phone Mariya Juan MD Primary Care Pro vider Reason for Visit * Reason Onset Date Comments Med Refill 04/20/2024 Encounter Details Date Type Department Care Team ([facility] st Contact Info) Description 04/20/2024 Telephone [facility] [address] [place], [place] [phone] Mariya Juan MD [address] [place] [address] Med Refill Social History Tobacco Use Types [...] EDT Telephone call placed to Freida at [facility] Coumadin clinic. Gave orders to continue [...] PM EDT Received call from Freida from [facility] coumadin clinic. Pt back today for recheck, [...] 04/20/2024 4:01 PM EDT TC placed to [facility] Anticoagulation to inquire when pt last got INR drawn. According to the experience planning strategist the pt was to come for a [...] solution prefilled [id number] [address] [facility] documented in this encounter Plan of Treatment Not on file documented as of this encounter Visit Diagnoses Not on filedocumented in this encounter Additional Health Concerns Assessment Noted Time PHQ-9 Depression Total Score: 04/28/20 23 2:32 PM EDT documented as of this encounter Care Teams Master Glazier Relationship Specialty Start Date End Date Mariya Juan MD [address] [place] [address] PCP - General Internal Medicine 04/28/23 documented as of this encounter
--- OUTSIDE RECORDS SUMMARY | 2025-03-01 15:17 | XMS_ITS | Encounter Summary ---
Author Organization [employer] Address [address] [place] [address] 7t [place] [address] Care Team Providers Care Nurse Midwife/Clinical Instructor Name Role Phone Mariya Juan MD Primary Care Pro vider Reason for Visit * Reason Comments Med Refill Encounter Details Date Type Department Care Team (Late st Contact Info) Description 05/23/2023 Refill [facility] [address] [place] [address] Kay Dennis FNP [address] [place] [address] Dept [place] [address] Social History Tobacco Use Types Packs/Day Years [...] documented as of this encounter Care Teams Nurse Midwife/Clinical Instructor Relationship Specialty Start Date End Date Mariya Juan MD [address] [place] [address] PCP - General Internal Medicine 04/28/23 documented as of this encounter
--- OUTSIDE RECORDS SUMMARY | 2025-03-01 15:18 | XMS_ITS | Encounter Summary ---
Author Organization [employer] Address [address] [place] [address] 7 [place] [address] Care Team Providers Care Sandblaster Stone Name Role Phone Mariya Juan MD Primary Care Pro vider Reason for Visit * Reason Onset Date Comments Med Refill 02/27/2025 Encounter Details Date Type Department Care Team ([facility] st Contact Info) Description 02/27/2025 Refill [facility] [address] [place] [address] Mariya Juan MD [address] [place] [address] Constipation, unspecified constipation type Social History Tobacco [...] encounter Miscellaneous Notes * Telephone Encounter - Mary Ann Gallego LPN - 02/27/2025 4:06 PM EDT Last seen 02/20/25. * Telephone Encounter - Zuleima Bhatt - 02/27/2025 4:04 PM EDT TC from pt requesting medication refill. Medications needing refill : ondansetron ODT (Zofran-ODT) 4 MG disintegrating tablet polyethylene glycol, PEG, 3350 (MiraLax) 17 GM/SCOOP powder To be sent to: [id number] - [place] - [address] [facility] documented in this encounter Plan of Treatment Not on file documented as of this encounter Visit Diagnoses Diagnosis Constipation, unspecified constipation type documented in this encounter Additional Health Concerns Assessment Noted Time PHQ-9 Depression Total Score: 12 024 2:22 PM EDT documented as of this encounter Care Teams Sandblaster Stone Relationship Specialty Start Date End Date Mariya Juan MD [address] [place] [phone] PCP - General Internal Medicine 04/28/23 documented as of this encounter
--- OUTSIDE RECORDS SUMMARY | 2025-03-01 15:18 | XMS_ITS | Encounter Summary ---
Author Organization [employer] Address [address] [place] [address] 7 [place] [address] Care Team Providers Care Hvac/R Instructor Name Role Phone Mariya Juan MD Primary Care Pro vider Reason for Visit * Reason Onset Date Comments Med Refill 01/08/2025 Encounter Details Date Type Department Care Team ([facility] st Contact Info) Description 01/08/[address] [facility] MEDICINE [address] [place] [address] Mariya Juan MD [address] [place] [address] Med Refill Social History Tobacco Use Types [...] solution prefilled syringe [id number] [place], [place] - [address] [facility] documented in this encounter Plan of Treatment Not on file documented as of this encounter Visit Diagnoses Not on filedocumented in this encounter Additional Health Concerns Assessment Noted Time PHQ-9 Depression Total Score: 12 024 2:22 PM EDT documented as of this encounter Care Teams Hvac/R Instructor Relationship Specialty Start Date End Date Mariya Juan MD [address] [place] [address] [phone] PCP - General Internal Medicine 04/28/23 documented as of this encounter
== END 2025-03-01 15:35 | disposition home or self-care (01) ==
LOC: HO.ACS 14:37
PROVIDERS: PCP Student in an Organized Health Care Education/Training Program; Visit Provider Internal Medicine Medical Oncology
DX: Z79.01 Long term (current) use of anticoagulants (principal)

== ENCOUNTER → 2025-03-01 14:37 | Outpatient (BNVA) | payer OTHER, SELFPAY | PROVIDERS: PCP Student in an Organized Health Care Education/Training Program; Visit Provider Internal Medicine Medical Oncology | DX: Z95.2 Presence of prosthetic heart valve (principal); Z79.01 Long term (current) use of anticoagulants; Z51.81 Encounter for therapeutic drug level monitoring | CPT/HCPCS: 85610; 99211 ==

== ENCOUNTER 2025-03-08 10:24 | Outpatient (AMB) | payer OTHER, SELFPAY ==
[2025-03-08 10:32] LABS: Prothrombin Time Whole Bld POC 51.4 sec (11.1-13.5); ~PT, ~INR - Anti Coag Clinic 4.3 (0.9-1.1)
--- NOTE | 2025-03-08 10:48 | MHC.OFFVISCO ---
Intake Intake Visit Reasons: Anticoagulation Allergies hydrocodone [From VICODIN] Allergy (Unknown, Verified 03/08/25 10:24) GI UPSET Medication List - Last Reconciled 03/08/25 by Grace Mccloud RN acetaminophen 325 mg PO QID PRN 7 days acetaminophen ER (Tylenol Arthritis Pain) 1,300 mg PO Q8H PRN albuterol sulfate 90 mcg/actuation (ProAir HFA) 2 puffs inhalation Q4-6H PRN atorvastatin 20 mg PO DAILY blood pressure test kit-large As directed buprenorphine-naloxone 8-2 mg (Suboxone) 1 film sublingual BID celecoxib (Celebrex) 200 mg PO DAILY PRN coenzyme Q10 (Co Q-10) PO fluticasone propionate 50 mcg/actuation sprays intranasal PRN hydroxyzine pamoate 25 mg PO TID inhalational spacing device (I3 Precision Pascale [facility] spacer) As directed loratadine 10 mg PO DAILY melatonin 5 mg PO BEDTIME PRN omeprazole 20 mg PO DAILY ondansetron 4 mg PO Q8H PRN 4 days ondansetron HCl 4 mg PO Q8H PRN polyethylene glycol 3350 (Miralax) 17 grams PO DAILY sodium chloride 0.65% (Deep Sea Nasal) sprays intranasal warfarin 7.5 mg See Protocol PO 2XW warfarin 10 mg See Protocol PO 5XW Nursing Note INR 4.3 out of therapeutic range Medications and supplements reviewed Patient status: Pt only had 5mg tabs not his usual 7.5mg tabs, took 5mg instead of 3.75mg tuesday Medications or supplements: no other changes Diet: eating more strawberry jam lately - not his usual amt of greens Denies any signs and symptoms of bleeding or clotting or unusual bruising Bleeding, bruising, clotting discussed Nutritional guidance given: remember to eat weekly greens Dose: 2.5mg today then 3.75mg x 2 days/ 7.5mg x 5 days or if unalbe to pecan picker 7.5mg tabs he will take 5mg x 2 days/ 7.5mg x 5 days F/U INR Date : 1 week ?? Patient verbalizing understanding of instructions given. Anti-Coag Initial Assessment Social Hx Patient Tobacco Use Status: Former Tobacco user Tobacco use type: Cigarette alcohol intake: never Alcohol intake frequency: does not drink Coding Level of Care Code Est Patient Level 1 Diagnoses Current use of anticoagulant therapy Z79.01 Results AMB INR Fingerstick AMB INR Fingerstick 4.3 Last Edit by Grace Mccloud RN on 03/08/25 10:35 manual entry Assessment & Plan Assessment & Plan (1) Current use of anticoagulant therapy: Code(s): Z79.01 - quality assurance qa lab analyst (current) 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
--- OUTSIDE RECORDS SUMMARY | 2025-03-08 11:28 | XMS_ITS | Encounter Summary ---
Author Organization [employer] Address [address] [place] [address] 7 [place] [address] Care Team Providers Care Larriman Name Role Phone Mariya Juan MD Primary Care Pro vider Reason for Visit * Reason Onset Date Comments Med Refill 01/08/2025 Encounter Details Date Type Department Care Team ([facility] st Contact Info) Description 01/08/2025 Telephone [facility] MEDICINE [address] [place] [address] Mariya Juan MD [address] [place] [address] Med Refill Social History Tobacco Use Types [...] solution prefilled [id number] [place], [place] [address] [facility] documented in this encounter Plan of Treatment Not on file documented as of this encounter Visit Diagnoses Not on filedocumented in this encounter Additional Health Concerns Assessment Noted Time PHQ-9 Depression Total Score: 12 024 2:22 PM EDT documented as of this encounter Care Teams Larriman Relationship Specialty Start Date End Date Mariya Juan MD [address] [place] [address] [phone] PCP - General Internal Medicine 04/28/23 documented as of this encounter
--- OUTSIDE RECORDS SUMMARY | 2025-03-08 11:28 | XMS_ITS | Encounter Summary ---
Author Organization [employer] Address [address] [facility] 7t [place] [address] Care Team Providers Care Leasing Director Name Role Phone Kay Dennis Primary Care Provider [phone] Mariya Juan MD Primary Care Pro vider Reason for Visit * Reason Onset Date Comments Durable Medical Equipment 02/25/2023 Encounter Details Date Type Department Care Team (Late st Contact Info) Description 02/25/2023 Telephone [facility] MEDICINE [address] [place] [phone] Kay Dennis FNP [address] [place] [address] [place] [address] Durable Medical Equipment Social History Tobacco Use [...] ago. Please sent to script [email or web address] If any questions please contact Tammy at [phone] documented in this encounter Plan of Treatment Not on file documented as of this encounter Visit Diagnoses Not on filedocumented in this encounter Care Teams Leasing Director Relationship Specialty Start Date End Date Kay Dennis FNP PCP - General Family Medicine 07/05/22 04/27/23 Mariya Juan MD [address] [place] [phone] PCP - General Internal Medicine 04/28/23 documented as of this encounter
--- OUTSIDE RECORDS SUMMARY | 2025-03-08 11:28 | XMS_ITS | Encounter Summary ---
Author Organization [employer] Address [address] [place] [address] 7 [place] [address] Care Team Providers Care Educational Administration Teacher Name Role Phone Mariya Juan MD Primary Care Pro vider Reason for Visit * Reason Onset Date Comments Med Refill 04/20/2024 Encounter Details Date Type Department Care Team ([facility] st Contact Info) Description 04/20/2024 Telephone [facility] MEDICINE [address] [place], [place] [phone] Mariya Juan MD [address] [place] [address] Med Refill Social History Tobacco Use Types [...] EDT Telephone call placed to Freida at [facility] Coumadin clinic. Gave orders to continue [...] PM EDT Received call from Freida from [facility] coumadin clinic. Pt back today for recheck, [...] 04/20/2024 4:01 PM EDT TC placed to [facility] Anticoagulation to inquire when pt last got INR drawn. According to the clinical director the pt was to come for a [...] solution prefilled [id number] [address] [facility] documented in this encounter Plan of Treatment Not on file documented as of this encounter Visit Diagnoses Not on filedocumented in this encounter Additional Health Concerns Assessment Noted Time PHQ-9 Depression Total Score: 04/28/20 23 2:32 PM EDT documented as of this encounter Care Teams Educational Administration Teacher Relationship Specialty Start Date End Date Mariya Juan MD [address] [place] [phone] PCP - General Internal Medicine 04/28/23 documented as of this encounter
--- OUTSIDE RECORDS SUMMARY | 2025-03-08 11:28 | XMS_ITS | Encounter Summary ---
Author Organization [employer] Address [address] [place] [address] 7t [place] [address] Care Team Providers Care Long Winder Tender Name Role Phone Kay Dennis Sofie ROACH Primary Care Provider [phone] Mariya Juan MD Primary Care Pro vider Encounter Details Date Type Department Care Team (Late st Contact Info) Description 12/16/2022 Orders Only [facility] MEDICINE [address] [place] [address] Aida Villegas LPN Social History Tobacco Use [...] EST) Protime 45.7(H) 11.1 - 13.5 sec [facility] 12/16/2022 2:35 PM EST 12/16/2022 2:36 PM EST [facility] External Provider LAB BLO OD ORDERABLES Final Result Performing Organization Address City/[facility] Co de Phone Number [facility] [address] [place] [phone] * (ABNORMAL) ~PT, ~INR - ANTI COAG CLINIC (12/16/2022 2:35 PM EST) Prothrombin Time INR 3.8(H) 0.9 - 1.1 [facility] Comment:METER #: [id number] TERNATIONAL NORMALIZED RATIO (INR) REFERENCE RANGES Reference [...] 2:35 PM EST 12/16/2022 2:36 PM EST [facility] External Provider LAB BLO OD ORDERABLES Final Result Performing Organization Address City/[facility] Co de Phone Number [facility] [address] [place] [phone] documented in this encounter Visit Diagnoses Not on filedocumented in this encounter Care Teams Long Winder Tender Relationship Specialty Start Date End Date Kay Dennis FNP PCP - General Family Medicine 07/05/22 04/27/23 Mariya Juan MD [address] [place] [address] PCP - General Internal Medicine 04/28/23 documented as of this encounter
--- OUTSIDE RECORDS SUMMARY | 2025-03-08 11:28 | XMS_ITS | Data Portability ---
Author Organization [place] - [facility] Allergy Address [address] [facility] [address] [place] [phone] Care Team Providers Care Anesthetist Name Role Phone NAME, KEIRA Primary Care [...] 50 mcg/actua tion nasal spray,darrin pension [address] [id number], [address] [place], [place], [id number], 15:20:32 Patient TargetsNo targets recorded. Patient InstructionsNo instructions recorded. Reason for Referral None Reported. 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 Procedures Surgical History Date Name Laterality Status Provider Name and Address Organization Details Recorded Time Heart Surgery completed Daphnie Welsh [place] - [facility] 04/11/2024 15:01:33 Imaging Results None recorded. Procedure [...] Updated DateTime 08/30/2024 190.5 cm 30 kg/m2 745403.17 g Nelli Fishman [place] - [facility] 08/30/2024 10:37:44 Date Recorded Body height Body mass index (BMI) Body weight Provider Name and Address Organization Details Last Updated DateTime 04/11/2024 190.5 cm 30 kg/m2 708456.17 g Daphnie Welsh [place] - [facility] 04/11/2024 14:58:50 Social History None recorded. Functional Status None recorded. Mental Status None recorded. Family History Nothing Reported. Medical History No medical history recorded. Past Encounters Encounter ID Performer Location Encounter Start Date Encounter Closed Date Diagnosis/Indication Diagnosis SNOMED-CT Code Diagnosis ICD10 Code Diagnosis Note [id number] CHANI KIM PA-C [facility] [address] [place] [address] 04/11/2024 14:35:25 04/11/2024 15:13:40 Amygdalolith 4745068 J35.8 Allergic rhinitis 469317 04 J30.89 [id number] EDDIE MONTES MD [facility] [address] [place] [address] 08/30/2024 10:28:36 08/30/2024 10:58:17 Amygdalolith 6189118 J35.8 Discourage d surgery. Recommend observatio n. [...] Roberts Member ID Guarantor Name 04/11/2024 1 [facility] - DOS ON OR AFTER 2023 - MEDICARE ADVANTAGE [place] (MEDICARE REPLACEMENT/AD VANTAGE - PPO) Ludin Mendes [id number] Ludin Mendes Notes Date Note Type Note [...] not continue it. CHANI KIM PA-C [address], [address], [facility] - [facility] 04/11/2024 15:25:28 08/30/2024 text/html 38-year-old male presents for evaluation of tonsil stones. Bleeding has resolved. He has not been using flonase but finds mouth rinses helpful. He is less bothered than before. EDDIE MONTES MD [address] [place] [address],[address], [phone], [facility] - [facility] 08/30/2024 11:00:13
--- OUTSIDE RECORDS SUMMARY | 2025-03-08 11:28 | XMS_ITS | Clinical Summary ---
Author Organization [facility] Address [address] [place] [address] Phone Care Team Providers Care Food And Beverage Controller Name Role Phone Sharon Baum MD Primary Care Provider [phone] Allergies No known active allergies Medications Buprenorphine [...] to 49 Years) Completed 04/28/2023, 02/17/2013 Insurance [facility] ([id number]) [facility] ([id number]) DENIS ERNANDEZ [phone] Care Teams Food And Beverage Controller Relationship Specialty Start Date End Date Sharon Baum MD [address] [place] [phone] PCP - General Internal Medicine 10/20/22
--- OUTSIDE RECORDS SUMMARY | 2025-03-08 11:28 | XMS_ITS | Clinical Summary ---
Author Organization [employer] Address [address] [place] [address] 7t [place] [address] Care Team Providers Care Carry All Driver Name Role Phone Mariya Juan MD Primary [...] 60 tablet 3 024 Active sodium chloride (Caruthers) 0.65 % nasal spray Administer 1 spray [...] weakness 04/28/2023 Overview (04/28/2023): Was seen at [facility] on 08/17/22 with noted nausea, diaphoresis in exam room, discomfort, profound fatigue, referred to [facility] ED now. Went to [facility] ED on 08/18/22 and was admitted for infection and started antibiotics. Blood cultures on 08/18/22 and 08/20/22 grew MSSA. 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 Plan was to transfer [facility]. Transferred to [facility] on 08/21/22 for further management [...] bleed improving Has PT in home through [facility]. Assessment & Plan (04/28/2023 10:03 PM EDT): Pt completing OT soon Will refer pt to OT 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 ED now. Went to [facility] ED on 08/18/22 and was admitted for infection and started antibiotics. Blood cultures on 08/18/22 and 08/20/22 grew MSSA. 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 Plan was to transfer [facility]. Transferred to [facility] on 08/21/22 for further management [...] endocarditis 11/03/2022 Overview (04/28/2023): Was seen at [facility] on 08/17/22 with noted nausea, diaphoresis in exam room, discomfort, profound fatigue, referred to [facility] ED now. Went to [facility] on 08/18/22 and was admitted for infection and started antibiotics. Blood cultures on 08/18/22 and 08/20/22 grew MSSA. 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 Plan was to transfer [facility]. Transferred to [facility] on 08/21/22 for further management [...] Encounters Date Type Department Care Team Description 03/08/2025 Orders Only GENERIC EXTERNAL DATA DEPARTMENT Provider, Generic External Data 03/01/2025 Orders Only GENERIC EXTERNAL DATA DEPARTMENT Provider, Generic External Data 02/28/2025 Telephone [facility] [address] [place] [address] Mariya Jaun MD Appointment 02/27/2025 Refill [facility] [address] [facility] [place] [address] Mariya Juan MD Constipation, unspecified constipation type 02/22/2025 Orders Only GENERIC EXTERNAL DATA DEPARTMENT Provider, Generic External Data 02/20/2025 2:15 PM EDT Office Visit [facility] [address] [facility] [place] [address] Mariya Newsome MD Pre-op evaluation (Primary Dx); Hx of prosthetic mitral valve; History of prosthetic heart valve 02/20/2025 Telephone [facility] [address] [place] [address] Blanca Abbott, JOLENE 02/20/2025 Travel 02/20/2025 Telephone [facility] [address] [place] [address] Mariya Juan MD critical results 02/13/2025 Telephone [facility] [address] [place] [address] Olga Mendes, JOLENE Pre-op Exam 01/28/2025 Telephone [facility] [address] [place] [address] Mariya Juan MD Critical Lab 01/25/2025 Refill [facility] [address] [place] [address] Daphnie Vann MD Anxiety state 01/08/2025 Orders Only [facility] [address] [place] [address] Yanira Lei MD Hx of prosthetic mitral valve 01/08/2025 Telephone [facility] [address] [place] [address] Mariya Juan MD Med Refill 01/07/2025 Telephone [facility] [address] [place] [address] Mariya Juan MD critical lab 12/23/2024 Refill [facility] [address] [place] [address] Mariya Juan MD Mechanical heart valve present 12/19/2024 Orders Only GENERIC EXTERNAL DATA DEPARTMENT Provider, Generic External Data 12/10/2024 Refill [facility] [address] [place] [address] Mariya Juan MD Mild intermittent asthma without complication from Last 3 Months Immunizations Name Administration Dates Next Due DTaP 07/18/1989, 7,12/20/1986,11/19 Hep B, Adolescent or Pediatric 12/10/1998,1997,1998 Hib ([facility]) 10/20/1987 Influenza injectable quadriv alent IIV4 with [...] Comments PROTHROMBIN TIME WHOLE BLD POC Routine 03/08/2025 10:31 AM EDT ~PT, ~INR - ANTI COAG CLINIC Routine 03/08/2025 10:31 AM EDT PROTHROMBIN TIME WHOLE BLD POC Routine 03/01/2025 2:46 PM EDT ~PT, ~INR - ANTI COAG CLINIC Routine 03/01/2025 2:46 PM EDT PROTHROMBIN TIME WHOLE BLD POC Routine 02/22/2025 10:37 AM EDT ~PT, ~INR - ANTI COAG CLINIC Routine 02/22/2025 10:37 AM EDT PROTHROMBIN TIME WHOLE BLD POC Routine 12/19/2024 2:04 PM EST ~PT, ~INR - ANTI COAG CLINIC Routine 12/19/2024 2:04 PM EST HEPATITIS C AB W/REFL TO HCV RNA, QN, PCR Routine 09/14/2024 4:32 PM EST Annual physical exam HIV 1/2 ANTIGEN/ANTIBODY, FOURTH GENERATION W/RFL Routine 09/14/2024 4:32 PM EST Annual physical exam LIPID PANEL, STANDARD Routine 09/14/2024 4:23 PM EST Annual physical exam from Last 3 Months or Most Recently Relevant to Health Maintenance Results * (ABNORMAL) PROTHROMBIN TIME WHOLE BLD POC (03/08/2025 10:31 AM EDT) Only the most recent of4 resultswithin the time period is included. Protime 51.4(H) 11.1 - 13.5 sec [facility] 03/08/2025 10:3 1 AM EDT 03/08/2025 10:32 AM EDT Generic External Data Provider LAB BLOOD ORDERAB LES Final Result Performing Organization Address City/[facility]/ZIP Co de Phone Number [facility] [address] [place] [phone] * (ABNORMAL) ~PT, ~INR - ANTI COAG CLINIC (03/08/2025 10:31 AM EDT) Only the most recent of4 resultswithin the time period is included. [facility] Prothrombin Time INR 4.3(H) 0.9 - 1.1 [facility] Comment:METER #: [id number] TERNATIONAL NORMALIZED RATIO (INR) REFERENCE RANGES Reference RangeFor patients not on anticoagulant therapy: 0.9 - 1.1INR ranges for oral anticoagulanttherapy:For prevention and treatment of venous thrombosis and pulmonary embolism: 2.0 - 3.0For acute myocardial infarction with aspirin therapy: 2.0 - 3.0For acute myocardial infarction without aspirin therapy: 3.0 - 4.0For patients with mechanical prosthetic heart valves: 2.5 - 3.5 03/08/2025 10:3 1 AM EDT 03/08/2025 10:32 AM EDT us [employer] External Data Provider LAB BLOOD ORDERAB LES Final Result Performing Organization Address City/[facility]/ZIP Co de Phone Number [facility] [address] [place] [phone] * Hepatitis C Antibody with Reflex to HCV, RNA, Quantitative, Real-Time PCR (09/14/2024 4:32 PM EST) [facility] Hepatitis C Antibody Nonreactive Nonreactive [facility] Comment:Antibodies to HCV no t detected; does not exclude early acuteHCV infection. Blood Venous blood specimen / Unknown 09/14/2024 4:32 PM EST 09/14/2024 6:05 PM EST us Mariya Cho MD LAB BLOOD ORDERAB LES Final Result Performing Organization Address [facility] Co de Phone Number [facility] [address] [place] [phone] * HIV-1/2 Antigen and Antibodies, Fourth Generation, with Reflexes (09/14/2024 4:32 PM EST) HIV AB/AG Nonreactive Nonreactive [facility] Comment:HIV-1 p24 Ag and/or HIV-1/HIV-2 Ab not detected.A test result that is nonreactive does not exclude thepossibility of exposure to or infection with HIV-1 and/orHIV-2. Nonreactive results in this assay for individualswith prior exposure to HIV-1 and/or HIV-2 may be due toantigen and antibody levels that are below the limit ofdetection of this assay.The [employer] HIV Ag/Ab Combo assay result andsupplemental assay results should be interpreted inconjunction with the patient's clinical presentation,history and other laboratory results. If the results areinconsistent with clinical evidence, additional testing issuggested to confirm the result. Blood Venous blood specimen / Unknown 09/14/2024 4:32 PM EST 09/14/2024 6:05 PM EST us Mariya Cho MD LAB BLOOD ORDERAB LES Final Result Performing Organization Address [facility]/ZIP Co de Phone Number [facility] [address] [place] [phone] * (ABNORMAL) Lipid Panel, Standard (09/14/2024 4:23 PM EST) Triglycerides 194(H) <150 mg/dL [facility] Comment:Desirable Triglyceri de: less than 150 mg/dLBorderline High Triglyceride 150-199 mg/dLHigh Triglyceride: 200-499 mg/dLVery High Triglyceride: greater than or equal to 5OO mg/dL Cholesterol 131 <200 mg/dL [facility] Comment:Desirable Cholestero l: less than 200 mg/dLBorderline High Cholesterol: 200-239 mg/dLHigh Cholesterol: greater than 239 mg/dL LDL Cholesterol Calculated 62 <100 mg/dL [facility] Comment:Desirable LDL: less than 100 mg/dLNear Optimal/Above Optimal LDL: 110- 129 mg/dLBorderline High LDL: 130-159 mg/dLHigh LDL: 160-189 mg/dLVery High LDL: greater than or equal to 190 mg/dL HDL Cholesterol 31(L) >40 mg/dL [facility] Comment:Desirable HDL: great er than 40 mg/dL Note: This HDL assay may give artificially low results in patients with liver disease. Blood Venous blood specimen / Unknown 09/14/2024 4:23 PM EST 09/14/2024 6:05 PM EST Mariya Cho MD LAB BLOOD ORDERAB LES Final Result [facility] [address] [place] [phone] from Last 3 Months or Most Recently Relevant to Health Maintenance Insurance [facility] < 65 DENIS ERNANDEZ [id number] Care Teams Carry All Driver Relationship Specialty Start Date End Date Mariya Juan MD [address] [place] [address] [phone] PCP - General Internal Medicine 04/28/23
--- OUTSIDE RECORDS SUMMARY | 2025-03-08 11:28 | XMS_ITS | Encounter Summary ---
Author Organization [employer] Address [address] [place] [address] 7t [place] [address] Care Team Providers Care Grounding Engineer Name Role Phone Kay Dennis BOAT OAR MAKER Primary Care Provider [phone] Mariya Juan MD Primary Care Pro vider Encounter Details Date Type Department Care Team (Late st Contact Info) Description 01/17/2023 Telephone [facility] [address] [place] [phone] Kay Dennis BOAT OAR MAKER [address] [place] [address] Dept [place] [address] Social History Tobacco Use Types Packs/Day Years [...] dosing. Please call her to advised at [phone]. documented in this encounter Plan of Treatment Not on file documented as of this encounter Visit Diagnoses Not on filedocumented in this encounter Care Teams Grounding Engineer Relationship Specialty Start Date End Date Kay Dennis FNP PCP - General Family Medicine 07/05/22 04/27/23 Mariya Juan MD [address] [place] [phone] PCP - General Internal Medicine 04/28/23 documented as of this encounter
--- OUTSIDE RECORDS SUMMARY | 2025-03-08 11:28 | XMS_ITS | Encounter Summary ---
Author Organization [employer] Address [address] [place] [address] 7t [place] [address] Care Team Providers Care Security Representative Name Role Phone Mariya Juan MD Primary Care Pro vider Reason for Visit * Reason Comments Med Refill Encounter Details Date Type Department Care Team (Late st Contact Info) Description 05/23/2023 Refill [facility] [address] [place] [address] Kay Dennis FNP [address] [place] [address] Dept [place] [address] Social History Tobacco Use Types Packs/Day Years [...] documented as of this encounter Care Teams Security Representative Relationship Specialty Start Date End Date Mariya Juan MD [address] [place] [phone] PCP - General Internal Medicine 04/28/23 documented as of this encounter
--- OUTSIDE RECORDS SUMMARY | 2025-03-08 11:28 | XMS_ITS | Encounter Summary ---
Author Organization [employer] Address [address] [facility] 7t [place] [address] Care Team Providers Care Senior Security Analyst Name Role Phone Mariya Juan MD Primary Care Pro vider Encounter Details Date Type Department Care Team (Late st Contact Info) Description 03/08/2025 Orders Only GENERIC EXTERNAL DATA [...] COAG CLINIC Routine 03/08/2025 10:31 AM EDT documented in this encounter Results * (ABNORMAL) PROTHROMBIN TIME WHOLE BLD POC (03/08/2025 10:31 AM EDT) Protime 51.4(H) 11.1 - 13.5 sec [facility] 03/08/2025 10:3 1 AM EDT 03/08/2025 10:32 AM EDT us Generic External Data Provider LAB BLOOD ORDERAB LES Final Result [facility] [address] [place] [phone] * (ABNORMAL) ~PT, ~INR - ANTI COAG CLINIC (03/08/2025 10:31 AM EDT) Prothrombin Time INR 4.3(H) 0.9 - 1.1 [facility] Comment:METER #: [id number] TERNATIONAL NORMALIZED RATIO (INR) REFERENCE RANGES Reference [...] AM EDT 03/08/2025 10:32 AM EDT us Generic External Data Provider LAB BLOOD ORDERAB LES Final Result Performing Organization Address City/State/[facility] Co de Phone Number [facility] [address] [place] [phone] documented in this encounter Visit Diagnoses Not on filedocumented in this encounter Additional Health Concerns Assessment Noted Time PHQ-9 Depression Total Score: 12 024 2:22 PM EDT documented as of this encounter Care Teams Senior Security Analyst Relationship Specialty Start Date End Date Mariya Juan MD [address] [place] [address] PCP - General Internal Medicine 04/28/23 documented as of this encounter
--- OUTSIDE RECORDS SUMMARY | 2025-03-08 11:28 | XMS_ITS | Encounter Summary ---
Author Organization [employer] Address [address] [place] [address] 7t [place] [address] Care Team Providers Care Jet Blade Polisher Name Role Phone Kay Dennis Primary Care Provider [phone] Mariya Juan MD Primary Care Pro vider Encounter Details Date Type Department Care Team (Late st Contact Info) Description 02/09/2023 Telephone [facility] [address] [place] [phone] Kay Dennis FNP [address] [place] [address] Dept [place] [address] Social History Tobacco Use Types Packs/Day Years [...] on filedocumented in this encounter Care Teams Jet Blade Polisher Relationship Specialty Start Date End Date Kay Dennis FNP PCP - General Family Medicine 07/05/22 04/27/23 Mariya Juan MD [address] [place] [phone] PCP - General Internal Medicine 04/28/23 documented as of this encounter
== END 2025-03-08 10:51 | disposition home or self-care (01) ==
LOC: HO.ACS 10:24
PROVIDERS: PCP Student in an Organized Health Care Education/Training Program; Visit Provider Internal Medicine Medical Oncology
DX: Z79.01 Long term (current) use of anticoagulants (principal)

== ENCOUNTER → 2025-03-08 10:24 | Outpatient (BNVA) | payer OTHER, SELFPAY | PROVIDERS: PCP Student in an Organized Health Care Education/Training Program; Visit Provider Internal Medicine Medical Oncology | DX: Z95.2 Presence of prosthetic heart valve (principal); Z51.81 Encounter for therapeutic drug level monitoring; Z79.01 Long term (current) use of anticoagulants | CPT/HCPCS: 85610; 99211 ==

== ENCOUNTER 2025-03-15 10:28 | Outpatient (AMB) | payer OTHER, SELFPAY ==
[2025-03-15 10:35] LABS: Prothrombin Time Whole Bld POC 50.9 sec (11.1-13.5); ~PT, ~INR - Anti Coag Clinic 4.2 (0.9-1.1)
--- NOTE | 2025-03-15 10:41 | MHC.OFFVISCO ---
Intake Intake Visit Reasons: Anticoagulation Allergies hydrocodone [From VICODIN] Allergy (Unknown, Verified 03/15/25 10:31) GI UPSET Medication List - Last Reconciled 03/15/25 by Kayla Alvarez RN acetaminophen 325 mg PO QID PRN 7 days acetaminophen ER (Tylenol Arthritis Pain) 1,300 mg PO Q8H PRN albuterol sulfate 90 mcg/actuation (ProAir HFA) 2 puffs inhalation Q4-6H PRN atorvastatin 20 mg PO DAILY blood pressure test kit-large As directed buprenorphine-naloxone 8-2 mg (Suboxone) 1 film sublingual BID celecoxib (Celebrex) 200 mg PO DAILY PRN coenzyme Q10 (Co Q-10) PO fluticasone propionate 50 mcg/actuation sprays intranasal PRN hydroxyzine pamoate 25 mg PO TID inhalational spacing device ([employer] [facility] spacer) As directed loratadine 10 mg PO DAILY melatonin 5 mg PO BEDTIME PRN omeprazole 20 mg PO DAILY ondansetron 4 mg PO Q8H PRN 4 days ondansetron HCl 4 mg PO Q8H PRN polyethylene glycol 3350 (Miralax) 17 grams PO DAILY sodium chloride 0.65% (Deep Sea Nasal) sprays intranasal warfarin 7.5 mg See Protocol PO 2XW warfarin 10 mg See Protocol PO 5XW Nursing Note INR: 4.2 out of therapeutic range of 2.5-3.5 Previous INR was 4.3 on 03/08/25 Medications and supplements reviewed Patient status: feels well Medications or supplements: no changes Diet: no changes Denies any signs and symptoms of bleeding or clotting or unusual bruising Bleeding, bruising, clotting discussed Nutritional guidance given: to have a serving of greens today Dose: decrease today's dose to 2.5mg (usual 7.5mg) and decrease tomorrow's dose to 5mg (usual 7.5mg) then 7.5mg X 5 days and 5mg X 2 days (Tue/Tue) F/U INR Date: 1 week? Patient verbalizing understanding of instructions given. Anti-Coag Initial Assessment Social Hx Patient Tobacco Use Status: Former Tobacco user Tobacco use type: Cigarette alcohol intake: never Alcohol intake frequency: does not drink Coding Level of Care Code Est Patient Level 1 Diagnoses Current use of anticoagulant therapy Z79.01 Assessment & Plan Assessment & Plan (1) Current use of anticoagulant therapy: Code(s): Z79.01 - nursing home (current) 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
--- OUTSIDE RECORDS SUMMARY | 2025-03-15 10:58 | XMS_ITS | Clinical Summary ---
Author Organization [facility] Address [address] [place] [address] Phone Care Team Providers Care Embossing Unit Operator Name Role Phone Sharon Baum MD Primary Care Provider [phone] Allergies No known active allergies Medications Buprenorphine [...] to 49 Years) Completed 04/28/2023, 02/17/2013 Insurance [facility] ([id number]) [facility] ([id number]) DENIS ERNANDEZ [id number] Care Teams Embossing Unit Operator Relationship Specialty Start Date End Date Sharon Baum MD [address] [place] [phone] PCP - General Internal Medicine 10/20/22
--- OUTSIDE RECORDS SUMMARY | 2025-03-15 10:58 | XMS_ITS | Encounter Summary ---
Author Organization [employer] Address [address] [place] [address] 7t [place] [address] Care Team Providers Care Special Diet Cook Name Role Phone Mariya Juan MD Primary Care Pro vider Reason for Visit * Reason Comments Med Refill Encounter Details Date Type Department Care Team (Late st Contact Info) Description 05/23/2023 Refill [facility] [address] [place] [address] Kay Dennis FNP [address] [place] [address] Dept [place] [address] Social History Tobacco Use Types Packs/Day Years [...] documented as of this encounter Care Teams Special Diet Cook Relationship Specialty Start Date End Date Mariya Juan MD [address] [place] [phone] PCP - General Internal Medicine 04/28/23 documented as of this encounter
--- OUTSIDE RECORDS SUMMARY | 2025-03-15 10:59 | XMS_ITS | Clinical Summary ---
Author Organization [employer] Address [address] [facility] 7t [place] [address] Care Team Providers Care Clutch Rebuilder Name Role Phone Mariya Juan MD Primary [...] 60 tablet 3 024 Active sodium chloride (Ashley) 0.65 % nasal spray Administer 1 spray [...] weakness 04/28/2023 Overview (04/28/2023): Was seen at [facility] on 08/17/22 with noted nausea, diaphoresis in exam room, discomfort, profound fatigue, referred to [facility] ED now. Went to [facility] ED on 08/18/22 and was admitted for infection and started antibiotics. Blood cultures on 08/18/22 and 08/20/22 grew MSSA. 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 Plan was to transfer [facility] [place]. Transferred [place] [facility] [place]22 for further management of infective [...] bleed improving Has PT in home through [facility]. 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 Went to [facility] ED on 08/18/22 and was admitted for infection and started antibiotics. Blood cultures on 08/18/22 and 08/20/22 grew MSSA. 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 Plan was to transfer [facility] [place]. Transferred [place] [facility] [place] 08/21/22 for further management of infective [...] endocarditis 11/03/2022 Overview (04/28/2023): Was seen at [facility] on 08/17/22 with noted nausea, diaphoresis in exam room, discomfort, profound fatigue, referred to [facility] ED now. Went to [facility] ED on 08/18/22 and was admitted for infection and started antibiotics. Blood cultures on 08/18/22 and 08/20/22 grew MSSA. 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 Plan was to transfer [facility] [place]. Transferred to [facility] [place] 08/21/22 for further management of infective [...] Encounters Date Type Department Care Team Description 03/15/2025 Orders Only GENERIC EXTERNAL DATA DEPARTMENT Provider, Generic External Data 03/08/2025 Orders Only GENERIC EXTERNAL DATA DEPARTMENT Provider, Generic External Data 03/01/2025 Orders Only GENERIC EXTERNAL DATA DEPARTMENT Provider, Generic External Data 02/28/[address] [address] Mariya Juan MD Appointment 02/27/2025 Refill [facility] MED[facility] [address] [facility] [place] [address] Mariya Juan MD Constipation, unspecified constipation type 02/22/2025 Orders Only GENERIC EXTERNAL DATA DEPARTMENT Provider, Generic External Data 02/20/2025 2:15 PM EDT Office Visit [facility] MED[facility]INE [address] [facility] [place] [address] Mariya Newsome MD Pre-op evaluation (Primary Dx); Hx of prosthetic mitral valve; History of prosthetic heart valve 02/20/2025 Telephone [facility] MEDICINE [address] [facility] [place] [address] Blanca Abbott, JOLENE 02/20/2025 Travel 02/20/2025 Telephone [facility] PEDIATRICS [address] [facility] [place] [address] Mariya Juan MD critical results 02/13/2025 Telephone [facility] [address] [facility] [place] [address] Olga Mendes RN Pre-op Exam 01/28/2025 Telephone [facility]EDIATRICS [address] [facility] [place] [address] Mariya Juan MD Critical Lab 01/25/2025 Refill [facility] MEDICINE [address] [facility] [place] [address] Daphnie Vann MD Anxiety state 01/08/2025 Orders Only [facility] MEDICINE [address] [place] [address] Yanira Lei MD Hx of prosthetic mitral valve 01/08/2025 Telephone [facility] MEDICINE [address] [facility] [place] [address] Mariya Juan MD Med Refill 01/07/2025 Telephone [facility]EDIATRICS [address] [facility] [place] [address] Mariya Juan MD critical lab 12/23/2024 Refill [facility] MEDICINE [address] [facility] [place] [address] Mariya Juan MD Mechanical heart valve present [...] Comments PROTHROMBIN TIME WHOLE BLD POC Routine 03/15/2025 10:33 AM EDT ~PT, ~INR - ANTI COAG CLINIC Routine 03/15/2025 10:33 AM EDT PROTHROMBIN TIME WHOLE BLD POC Routine 03/08/2025 [...] * (ABNORMAL) PROTHROMBIN TIME WHOLE BLD POC (03/15/2025 10:33 AM EDT) Only the most recent of5 resultswithin the time period is included. Protime 50.9(H) 11.1 - 13.5 sec [facility] 03/15/2025 10:3 3 AM EDT 03/15/2025 10:34 AM EDT Generic External Data Provider LAB BLOOD ORDERAB LES Final Result Performing Organization Address City/[facility]/ZIP Co de Phone Number [facility] [address] [place] [phone] * (ABNORMAL) ~PT, ~INR - ANTI COAG CLINIC (03/15/2025 10:33 AM EDT) Only the most recent of5 resultswithin the time period is included. Pathologist [facility] Prothrombin Time INR 4.2(H) 0.9 - 1.1 [facility] Comment:METER #: [id number] TERNATIONAL NORMALIZED RATIO (INR) REFERENCE RANGES Reference RangeFor patients not on anticoagulant therapy: 0.9 - 1.1INR ranges for oral anticoagulanttherapy:For prevention and treatment of venous thrombosis and pulmonary embolism: 2.0 - 3.0For acute myocardial infarction with aspirin therapy: 2.0 - 3.0For acute myocardial infarction without aspirin therapy: 3.0 - 4.0For patients with mechanical prosthetic heart valves: 2.5 - 3.5 03/15/2025 10:3 3 AM EDT 03/15/2025 10:34 AM EDT [employer] External Data Provider LAB BLOOD ORDERAB LES Final Result Performing Organization Address [facility] Co de Phone Number [facility] [address] [place] [phone] * Hepatitis C Antibody with Reflex to HCV, RNA, Quantitative, Real-Time PCR (09/14/2024 4:32 PM EST) Pathologist [facility] Hepatitis C Antibody Nonreactive Nonreactive [facility] Comment:Antibodies to HCV no t detected; does not exclude early acuteHCV infection. Blood Venous blood specimen / Unknown 09/14/2024 4:32 PM EST 09/14/2024 6:05 PM EST Mariya Cho MD LAB BLOOD ORDERAB LES Final Result Performing Organization Address City/[facility]/ZIP Co de Phone Number [facility] [address] [place] [address] [phone] * HIV-1/2 Antigen and Antibodies, Fourth Generation, with Reflexes (09/14/2024 4:32 PM EST) HIV AB/AG Nonreactive Nonreactive [facility] Comment:HIV-1 p24 Ag and/or HIV-1/HIV-2 Ab not detected.A test result that is nonreactive does not exclude thepossibility of exposure to or infection with HIV-1 and/orHIV-2. Nonreactive results in this assay for individualswith prior exposure to HIV-1 and/or HIV-2 may be due toantigen and antibody levels that are below the limit ofdetection of this assay.The [employer] HIV Ag/Ab Combo assay result andsupplemental assay results should be interpreted inconjunction with the patient's clinical presentation,history and other laboratory results. If the results areinconsistent with clinical evidence, additional testing issuggested to confirm the result. Blood Venous blood specimen / Unknown 09/14/2024 4:32 PM EST 09/14/2024 6:05 PM EST us Mariya Cho MD LAB BLOOD ORDERAB LES Final Result Performing Organization Address City/[facility]/ZIP Co de Phone Number [facility] [address] [place] [address] [phone] * (ABNORMAL) Lipid Panel, Standard (09/14/2024 4:23 PM EST) Triglycerides 194(H) <150 mg/dL [facility] Comment:Desirable Triglyceri de: less than 150 mg/dLBorderline High Triglyceride 150-199 mg/dLHigh Triglyceride: 200-499 mg/dLVery High Triglyceride: greater than or equal to 5OO mg/dL Cholesterol 131 <200 mg/dL [facility] Comment:Desirable Cholestero l: less than 200 mg/dLBorderline High Cholesterol: 200-239 mg/dLHigh Cholesterol: greater than 239 mg/dL LDL Cholesterol Calculated 62 <100 mg/dL [facility] Comment:Desirable LDL: less than 100 mg/dLNear Optimal/Above Optimal LDL: 110- 129 mg/dLBorderline High LDL: 130-159 mg/dLHigh LDL: 160-189 mg/dLVery High LDL: greater than or equal to 190 mg/dL HDL Cholesterol 31(L) >40 mg/dL [facility] Comment:Desirable HDL: great er than 40 mg/dL Note: This HDL assay may give artificially low results in patients with liver disease. Blood Venous blood specimen / Unknown 09/14/2024 4:23 PM EST 09/14/2024 6:05 PM EST us Mariya Cho MD LAB BLOOD ORDERAB LES Final Result [facility] [address] [place] [phone] from Last 3 Months or Most Recently Relevant to Health Maintenance Insurance [facility] < 65 DENIS E[place]NDEZ [id number] Care Teams Clutch Rebuilder Relationship Specialty Start Date End Date Mariya Juan MD [address] [place] [address] PCP - General Internal Medicine 04/28/23
--- OUTSIDE RECORDS SUMMARY | 2025-03-15 10:59 | XMS_ITS | Encounter Summary ---
Author Organization [employer] Address [address] [place] [address] 7 [place] [address] Care Team Providers Care Necktie Centralizing Machine Operator Name Role Phone Mariya Juan MD Primary Care Pro vider Reason for Visit * Reason Onset Date Comments Med Refill 01/08/2025 Encounter Details Date Type Department Care Team ([facility] st Contact Info) Description 01/08/2025 Telephone [facility] MEDICINE [address] [place] [address] Mariya Juan MD [address] [place] [address] Med Refill Social History Tobacco Use Types [...] [id number] [address] [place] [address] AT [facility] documented in this encounter Plan of Treatment Not on file documented as of this encounter Visit Diagnoses Not on filedocumented in this encounter Additional Health Concerns Assessment Noted Time PHQ-9 Depression Total Score: 12 024 2:22 PM EDT documented as of this encounter Care Teams Necktie Centralizing Machine Operator Relationship Specialty Start Date End Date Mariya Juan MD [address] [place] [address] PCP - General Internal Medicine 04/28/23 documented as of this encounter
--- OUTSIDE RECORDS SUMMARY | 2025-03-15 10:59 | XMS_ITS | Encounter Summary ---
Author Organization [employer] Address [address] [place] [address] Care Team Providers Care Windows Security Engineer Name Role Phone Kay Dennis SURGICAL AIDES TEACHER Primary Care Provider [phone]- [phone] Mariya Juan MD Primary Care Pro vider Encounter Details Date Type Department Care Team (Late st Contact Info) Description 01/17/2023 Telephone [facility] MEDICINE [address] [place] [phone] Kay Dennis FNP [address] [place] [address] Dept [place] [address] Social History Tobacco Use Types Packs/Day Years [...] dosing. Please call her to advised at [phone]. documented in this encounter Plan of Treatment Not on file documented as of this encounter Visit Diagnoses Not on filedocumented in this encounter Care Teams Windows Security Engineer Relationship Specialty Start Date End Date Kay Dennis FNP PCP - General Family Medicine 07/05/22 04/27/23 Mariya Juan MD [address] [place] [address] PCP - General Internal Medicine 04/28/23 documented as of this encounter
--- OUTSIDE RECORDS SUMMARY | 2025-03-15 10:59 | XMS_ITS | Encounter Summary ---
Author Organization [employer] Address 75 [facility] 7t [place] [address] Care Team Providers Care Automotive Glass Mechanic Name Role Phone Kay Dennis Sofie ROACH Primary Care Provider +1- [phone] Mariya Juan MD Primary Care Pro vider Encounter Details Date Type Department Care Team ([facility] st Contact Info) Description 12/16/[address] [facility] MEDICINE [address] [place] [address] Aida Villegas LPN Social History Tobacco Use [...] EST) Protime 45.7(H) 11.1 - 13.5 sec [facility] 12/16/2022 2:35 PM EST 12/16/2022 2:36 PM EST [employer] External Provider LAB BLO OD ORDERABLES Final Result Performing Organization Address City/[facility]/ZIP Co de Phone Number [facility] [address] [place] [phone] * (ABNORMAL) ~PT, ~INR - ANTI COAG CLINIC (12/16/2022 2:35 PM EST) Prothrombin Time INR 3.8(H) 0.9 - 1.1 [facility] Comment:METER #: [id number] TERNATIONAL NORMALIZED RATIO (INR) REFERENCE RANGES Reference [...] 2:35 PM EST 12/16/2022 2:36 PM EST [employer] External Provider LAB BLO OD ORDERABLES Final Result Performing Organization Address City/[facility]/ZIP Co de Phone Number [facility] [address] [place] [phone] documented in this encounter Visit Diagnoses Not on filedocumented in this encounter Care Teams Automotive Glass Mechanic Relationship Specialty Start Date End Date Kay Dennis FNP PCP - General Family Medicine 07/05/22 04/27/23 Mariya Juan MD [address] [place] [address] PCP - General Internal Medicine 04/28/23 documented as of this encounter
--- OUTSIDE RECORDS SUMMARY | 2025-03-15 10:59 | XMS_ITS | Encounter Summary ---
Author Organization [employer] Address [address] [facility] [address] 7t [place] [address] Care Team Providers Care Director Of Distribution Name Role Phone Mariya Juan MD Primary Care Pro vider Encounter Details Date Type Department Care Team (Late st Contact Info) Description 03/15/2025 Orders Only GENERIC EXTERNAL DATA [...] COAG CLINIC Routine 03/15/2025 10:33 AM EDT documented in this encounter Results * (ABNORMAL) PROTHROMBIN TIME WHOLE BLD POC (03/15/2025 10:33 AM EDT) Protime 50.9(H) 11.1 - 13.5 sec [facility] 03/15/2025 10:3 3 AM EDT 03/15/2025 10:34 AM EDT us Generic External Data Provider LAB BLOOD ORDERAB LES Final Result [facility] [address] [place] [phone] * (ABNORMAL) ~PT, ~INR - ANTI COAG CLINIC (03/15/2025 10:33 AM EDT) Prothrombin Time INR 4.2(H) 0.9 - 1.1 [facility] Comment:METER #: [id number] TERNATIONAL NORMALIZED RATIO (INR) REFERENCE RANGES Reference [...] 3 AM EDT 03/15/2025 10:34 AM EDT us Generic External Data Provider LAB BLOOD ORDERAB LES Final Result [facility] [address] [place] [address] [phone] documented in this encounter Visit Diagnoses Not on filedocumented in this encounter Additional Health Concerns Assessment Noted Time PHQ-9 Depression Total Score: 12 07/24/ 024 2:22 PM EDT documented as of this encounter Care Teams Director Of Distribution Relationship Specialty Start Date End Date Mariya Juan MD [address] [place] [address] PCP - General Internal Medicine 04/28/23 documented as of this encounter
--- OUTSIDE RECORDS SUMMARY | 2025-03-15 10:59 | XMS_ITS | Encounter Summary ---
Author Organization [employer] Address 75 [facility] 7 [place] [address] Care Team Providers Care Template Fitter Name Role Phone Mariya Juan MD Primary Care Pro vider Reason for Visit * Reason Onset Date Comments Med Refill 04/20/2024 Encounter Details Date Type Department Care Team ([facility] st Contact Info) Description 04/20/2024 Telephone [facility] MEDICINE [address] [place] [address] Mariya Juan MD [address] [place] [address] Med Refill Social History Tobacco Use Types [...] EDT Telephone call placed to Freida at [facility] Coumadin clinic. Gave orders to continue [...] PM EDT Received call from Freida from [facility] cou[facility] [place]. Pt back [...] 04/20/2024 4:01 PM EDT TC placed to [facility] Anticoagulation to inquire when pt last got INR drawn. According to the legal secretary receptionist the pt was to come for [...] solution prefilled syringe To be sent to: [id number] [place], [place] - [address] [facility] documented in this encounter Plan of Treatment Not on file documented as of this encounter Visit Diagnoses Not on filedocumented in this encounter Additional Health Concerns Assessment Noted Time PHQ-9 Depression Total Score: 04/28/20 23 2:32 PM EDT documented as of this encounter Care Teams Template Fitter Relationship Specialty Start Date End Date Mariya Juan MD [address] [place] [address] PCP - General Internal Medicine 04/28/23 documented as of this encounter
--- OUTSIDE RECORDS SUMMARY | 2025-03-15 10:59 | XMS_ITS | Encounter Summary ---
Author Organization [employer] Address 75 [facility] 7t [place] [address] Care Team Providers Care Manager Area Name Role Phone Kay Dennis Primary Care Provider +1- [phone] Mariya Juan MD Primary Care Pro vider Reason for Visit * Reason Onset Date Comments Durable Medical Equipment 02/25/2023 Encounter Details Date Type Department Care Team (Late st Contact Info) Description 02/25/[address] [facility] MEDICINE [address] [place] [address] Kay Dennis FNP 75 [facility] [place] [address] Durable Medical Equipment Social History Tobacco Use [...] long ago. Please sent to script [email or web address] If any questions please contact Tammy at [phone] documented in this encounter Plan of Treatment Not on file documented as of this encounter Visit Diagnoses Not on filedocumented in this encounter Care Teams Manager Area Relationship Specialty Start Date End Date Kay Dennis FNP PCP - General Family Medicine 07/05/22 04/27/23 Mariya Juan MD [address] [place] [address] PCP - General Internal Medicine 04/28/23 documented as of this encounter
--- OUTSIDE RECORDS SUMMARY | 2025-03-15 10:59 | XMS_ITS | Data Portability ---
Author Organization [facility] Address [address] [facility] [address] [facility] [address] [place] [phone] Care Team Providers Care Press Brake Operator Name Role Phone NAME, KEIRA Primary Care Provider [phone] Assessment Encounter Date Assessment Date Assessment LastModified [...] 50 mcg/actua tion nasal spray,darrin pension [id number], [address], [place], [id number], 15:20:32 Patient TargetsNo targets recorded. Patient InstructionsNo instructions recorded. Reason for Referral None Reported. 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 Procedures Surgical History Date Name Laterality Status Provider Name and Address Organization Details Recorded Time Heart Surgery completed Daphnie Welsh [facility] 04/11/2024 15:01:33 Imaging Results None recorded. Procedure [...] Updated DateTime 08/30/2024 190.5 cm 30 kg/m2 797570.17 g Nelli Fishman [facility] 08/30/2024 10:37:44 Date Recorded Body height Body mass index (BMI) Body weight Provider Name and Address Organization Details Last Updated DateTime 04/11/2024 190.5 cm 30 kg/m2 445746.17 g Daphnie Welsh [facility] 04/11/2024 14:58:50 Social History None recorded. Functional Status None recorded. Mental Status None recorded. Family History Nothing Reported. Medical History No medical history recorded. Past Encounters Encounter ID Performer Location Encounter Start Date Encounter Closed Date Diagnosis/Indication Diagnosis SNOMED-CT Code Diagnosis ICD10 Code Diagnosis Note [id number] CHANI KIM PA-C [facility] [address] [place] [address] 04/11/2024 14:35:25 04/11/2024 15:13:40 Amygdalolith 1558298 J35.8 Allergic rhinitis 831115 04 J30.89 [id number] EDDIE MONTES MD [facility] [address] [place] [address] 08/30/2024 10:28:36 08/30/2024 10:58:17 Amygdalolith 1479795 J35.8 Discourage d surgery. Recommend observatio n. He was agreeable to the plan. I asked him to call if the bleeding recurs. Health Concerns Section Related Observation LastModified by Organization Detai ls LastModified Time None Recorded Concern Status LastModified by Organization Details LastModified Time None Recorded Advance Directives Directive None Recorded Payers Insurance Date Sequence Insurance Name Policy Number Policy Roberts Covered Member ID Roberts Member ID Guarantor Name 11/15/2024 1 [facility] - DOS ON OR AFTER 2023 - [facility] (MEDICARE REPLACEMENT/AD VANTAGE - HMO) Ludin Mendes [id number] Ludin Mendes 08/30/2024 1 [facility] - DOS ON OR AFTER 2023 - MEDICARE ADVANTAGE [place] (MEDICARE REPLACEMENT/AD VANTAGE - PPO) Ludin Mendes [id number] Ludin Mendes Notes Date Note Type Note [...] not continue it. CHANI KIM PA-C [address], [phone], [facility] 04/11/2024 15:25:28 08/30/2024 text/html 38-year-old male presents for evaluation of tonsil stones. Bleeding has resolved. He has not been using flonase but finds mouth rinses helpful. He is less bothered than before. EDDIE MONTES MD [address] [place] [address], [place], [address], [facility] - [facility] 08/30/2024 11:00:13
--- OUTSIDE RECORDS SUMMARY | 2025-03-15 10:59 | XMS_ITS | Encounter Summary ---
Author Organization [employer] Address 75 [facility] 7t [place] [address] Care Team Providers Care Central Office Frame Wirer Name Role Phone Kay Dennis Primary Care Provider +1- [phone] Mariya Juan MD Primary Care Pro vider Encounter Details Date Type Department Care Team (Late st Contact Info) Description 02/09/2023 Telephone [facility] MEDICINE [address] [place] [phone] Kay Dennis FNP [address] [place] [address] Dept [place] [address] Social History Tobacco Use Types Packs/Day Years [...] on filedocumented in this encounter Care Teams Central Office Frame Wirer Relationship Specialty Start Date End Date Kay Dennis FNP PCP - General Family Medicine 07/05/22 04/27/23 Mariya Juan MD [address] [place] [address] PCP - General Internal Medicine 04/28/23 documented as of this encounter
== END 2025-03-15 10:45 | disposition home or self-care (01) ==
LOC: HO.ACS 10:28
PROVIDERS: PCP Student in an Organized Health Care Education/Training Program; Visit Provider Internal Medicine Medical Oncology
DX: Z79.01 Long term (current) use of anticoagulants (principal)

== ENCOUNTER → 2025-03-15 10:28 | Outpatient (BNVA) | payer OTHER, SELFPAY | PROVIDERS: PCP Student in an Organized Health Care Education/Training Program; Visit Provider Internal Medicine Medical Oncology | DX: Z95.2 Presence of prosthetic heart valve (principal); Z79.01 Long term (current) use of anticoagulants; Z51.81 Encounter for therapeutic drug level monitoring | CPT/HCPCS: 85610; 99211 ==

== ENCOUNTER 2025-03-22 10:33 | Outpatient (AMB) | payer OTHER, SELFPAY ==
[2025-03-22 10:44] LABS: Prothrombin Time Whole Bld POC 33.9 sec (11.1-13.5); ~PT, ~INR - Anti Coag Clinic 2.8 (0.9-1.1)
--- NOTE | 2025-03-22 10:52 | MHC.OFFVISCO ---
Intake Intake Visit Reasons: Anticoagulation Allergies hydrocodone [From VICODIN] Allergy (Unknown, Verified 03/22/25 10:35) GI UPSET Medication List - Last Reconciled 03/22/25 by Grace Mccloud RN acetaminophen 325 mg PO QID PRN 7 days acetaminophen ER (Tylenol Arthritis Pain) 1,300 mg PO Q8H PRN albuterol sulfate 90 mcg/actuation (ProAir HFA) 2 puffs inhalation Q4-6H PRN atorvastatin 20 mg PO DAILY blood pressure test kit-large As directed buprenorphine-naloxone 8-2 mg (Suboxone) 1 film sublingual BID celecoxib (Celebrex) 200 mg PO DAILY PRN coenzyme Q10 (Co Q-10) PO fluticasone propionate 50 mcg/actuation sprays intranasal PRN hydroxyzine pamoate 25 mg PO TID inhalational spacing device ([employer] [facility] spacer) As directed loratadine 10 mg PO DAILY melatonin 5 mg PO BEDTIME PRN omeprazole 20 mg PO DAILY ondansetron 4 mg PO Q8H PRN 4 days ondansetron HCl 4 mg PO Q8H PRN polyethylene glycol 3350 (Miralax) 17 grams PO DAILY sodium chloride 0.65% (Deep Sea Nasal) sprays intranasal warfarin 7.5 mg See Protocol PO 2XW warfarin 10 mg See Protocol PO 5XW Nursing Note INR: 2.8 in therapeutic range Medications and supplements reviewed No changes in health, diet, medications, or supplements, Denies any signs and symptoms of bleeding or bruising or clotting. Bleeding, bruising, clotting discussed Nutritional guidance given Dose: keep same dose 5mg x 2 days/ 7.5mg x 5 days F/U INR: 2 weeks Patient verbalizes understanding of instructions given Anti-Coag Initial Assessment Social Hx Patient Tobacco Use Status: Former Tobacco user Tobacco use type: Cigarette alcohol intake: never Alcohol intake frequency: does not drink Coding Level of Care Code Est Patient Level 1 Diagnoses Current use of anticoagulant therapy Z79.01 Results AMB INR Fingerstick AMB INR Fingerstick 2.8 Last Edit by Grace Mccloud RN on 03/22/25 10:46 manual entry Assessment & Plan Assessment & Plan (1) Current use of anticoagulant therapy: Code(s): Z79.01 - continuous churn buttermaker (current) 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
--- OUTSIDE RECORDS SUMMARY | 2025-03-22 10:58 | XMS_ITS | Encounter Summary ---
Author Organization [employer] Address [address] [facility] 7t [place] [address] Care Team Providers Care Bistro Attendant Name Role Phone Kay Dennis Sofie ROACH Primary Care Provider +1- [phone] Mariya Juan MD Primary Care Pro vider Encounter Details Date Type Department Care Team ([facility] st Contact Info) Description 12/16/2022 Orders Only [facility] [address] [place] [address] Aida Villegas LPN Social History Tobacco Use [...] EST) Protime 45.7(H) 11.1 - 13.5 sec [facility] 12/16/2022 2:35 PM EST 12/16/2022 2:36 PM EST [facility] External Provider LAB BLO OD ORDERABLES Final Result Performing Organization Address City/[facility]/ZIP Co de Phone Number [facility] [address] [place] [phone] * (ABNORMAL) ~PT, ~INR - ANTI COAG CLINIC (12/16/2022 2:35 PM EST) Prothrombin Time INR 3.8(H) 0.9 - 1.1 [facility] Comment:METER #: [id number] TERNATIONAL NORMALIZED RATIO (INR) REFERENCE RANGES Reference [...] 2:35 PM EST 12/16/2022 2:36 PM EST [facility] External Provider LAB BLO OD ORDERABLES Final Result Performing Organization Address City/[facility]/ZIP Co de Phone Number [facility] [address] [place] [phone] documented in this encounter Visit Diagnoses Not on filedocumented in this encounter Care Teams Bistro Attendant Relationship Specialty Start Date End Date Kay Dennis FNP PCP - General Family Medicine 07/05/22 04/27/23 Mariya Juan MD [address] [place] [address] PCP - General Internal Medicine 04/28/23 documented as of this encounter
--- OUTSIDE RECORDS SUMMARY | 2025-03-22 10:58 | XMS_ITS | Encounter Summary ---
Author Organization [employer] Address [address] [place] [address] 7 [place] [address] Care Team Providers Care Analysis Reporting Developer Name Role Phone Mariya Juan MD Primary Care Pro vider Reason for Visit * Reason Onset Date Comments Med Refill 01/08/2025 Encounter Details Date Type Department Care Team ([facility] st Contact Info) Description 01/08/2025 Telephone [facility] [address] [place] [address] Mariya Juan MD [address] [place] [address] Med Refill Social History Tobacco Use Types [...] [id number] [address] [place] [address] AT [facility] documented in this encounter Plan of Treatment Not on file documented as of this encounter Visit Diagnoses Not on filedocumented in this encounter Additional Health Concerns Assessment Noted Time PHQ-9 Depression Total Score: 12 024 2:22 PM EDT documented as of this encounter Care Teams Analysis Reporting Developer Relationship Specialty Start Date End Date Mariya Juan MD [address] [place] [phone] PCP - General Internal Medicine 04/28/23 documented as of this encounter
--- OUTSIDE RECORDS SUMMARY | 2025-03-22 10:58 | XMS_ITS | Clinical Summary ---
Author Organization [employer] Address [address] [facility] 7t [place] [address] Care Team Providers Care Field Service Analyst Name Role Phone Mariya Juan MD [...] 60 tablet 3 024 Active sodium chloride (Grampian) 0.65 % nasal spray Administer 1 spray [...] FOR CONSTIPATION 510 g 2 025 Active polyethylene glycol, PEG, 3350 (MiraLax) [...] weakness 04/28/2023 Overview (04/28/2023): Was seen at [facility] on 08/17/22 with noted nausea, [...] around the valve. Plan was to transfer [facility]. Transferred to [facility] on 08/21/22 for further management of infective [...] bleed improving Has PT in home through [facility]. 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 Plan was to transfer [facility]. Transferred to [facility] on 08/21/22 for further management of infective [...] endocarditis 11/03/2022 Overview (04/28/2023): Was seen at [facility] on 08/17/22 with noted nausea, [...] around the valve. Plan was to transfer [facility]. Transferred to [facility] on 08/21/22 for further management of infective [...] Encounters Date Type Department Care Team Description 03/22/2025 Orders Only [facility] EXTERNAL DATA DEPARTMENT Provider, Generic External Data 03/15/2025 Orders Only GENERIC EXTERNAL DATA DEPARTMENT Provider, Generic External Data 03/08/2025 Orders Only GENERIC EXTERNAL DATA DEPARTMENT Provider, Generic External Data 03/01/2025 Orders Only GENERIC EXTERNAL DATA DEPARTMENT Provider, Generic External Data 02/28/2025 Telephone [facility] [address] [place] [address] Mariya Juan MD Appointment 02/27/2025 Refill [facility] [address] [place] [address] Mariya Juan MD Constipation, unspecified constipation type 02/22/2025 Orders Only GENERIC EXTERNAL DATA DEPARTMENT Provider, Generic External Data 02/20/2025 2:15 PM EDT Office Visit [facility] [address] [facility] [place] [address] Mariya Newsome MD Pre-op evaluation (Primary Dx); Hx of prosthetic mitral valve; History of prosthetic heart valve 02/20/2025 Telephone [facility] [address] [facility] [place] [address] Blanca Abbott, JOLENE 02/20/2025 Travel 02/20/2025 Telephone [facility] 230 [place] [address] Mariya Juan MD critical results 02/13/2025 Telephone [facility] [address] [place] [address] Olga Mendes RN Pre-op Exam 01/28/2025 Telephone [facility] [address] [place] [address] Mariya Juan MD Critical Lab 01/25/2025 Refill [facility] [address] [place] [address] Daphnie Vann MD Anxiety state 01/08/2025 Orders Only [facility] [address] [facility] [place] [address] Yanira Lei MD Hx of prosthetic mitral valve 01/08/2025 Telephone [facility] [address] [place] [address] Mariya Juan MD Med Refill 01/07/2025 Telephone [facility] [address] [place] [address] Mariya Juan MD critical lab 12/23/2024 Refill [facility] [address] [place] [address] Mariya Juan MD Mechanical heart valve present from Last 3 Months Immunizations Immunization Administration Dates Next Due DTaP 07/18/1989, 7,12/20/1986,11/19 [...] Answer Date Recorded Patient Health Questionnaire-9 Score 07/24/2024 Patient Health Questionnaire-9 Score 07/24/2024 Last PHQ-9: Questionnaire Data Not on [...] patient's age to complete this topic Meningococcal B Vaccine Aged Out No l onger eligible based on patient's age to complete [...] Comments PROTHROMBIN TIME WHOLE BLD POC Routine 03/22/2025 10:42 AM EDT ~PT, ~INR - ANTI COAG CLINIC Routine 03/22/2025 10:42 AM EDT PROTHROMBIN TIME WHOLE BLD POC Routine 03/15/2025 [...] COAG CLINIC Routine 02/22/2025 10:37 AM EDT HEPATITIS C AB W/REFL TO HCV RNA, QN, PCR Routine 09/14/2024 4:32 PM EST Annual physical exam HIV 1/2 ANTIGEN/ANTIBODY, FOURTH GENERATION W/RFL Routine 09/14/2024 4:32 PM EST Annual physical exam LIPID PANEL, STANDARD Routine 09/14/2024 4:23 PM EST Annual physical exam from Last 3 Months or Most Recently Relevant to Health Maintenance Results * (ABNORMAL) PROTHROMBIN TIME WHOLE BLD POC (03/22/2025 10:42 AM EDT) Only the most recent of5 resultswithin the time period is included. Protime 33.9(H) 11.1 - 13.5 sec [facility] 03/22/2025 10:4 2 AM EDT 03/22/2025 10:43 AM EDT us Generic External Data Provider LAB BLOOD ORDERAB LES Final Result Performing Organization Address [facility] Co de Phone Number [facility] [address] [place] [phone] * (ABNORMAL) ~PT, ~INR - ANTI COAG CLINIC (03/22/2025 10:42 AM EDT) Only the most recent of5 resultswithin the time period is included. Prothrombin Time INR 2.8(H) 0.9 - 1.1 [facility] Comment:METER #: [id number] TERNATIONAL NORMALIZED RATIO (INR) REFERENCE RANGES Reference RangeFor patients not on anticoagulant therapy: 0.9 - 1.1INR ranges for oral anticoagulanttherapy:For prevention and treatment of venous thrombosis and pulmonary embolism: 2.0 - 3.0For acute myocardial infarction with aspirin therapy: 2.0 - 3.0For acute myocardial infarction without aspirin therapy: 3.0 - 4.0For patients with mechanical prosthetic heart valves: 2.5 - 3.5 03/22/2025 10:4 2 AM EDT 03/22/2025 10:43 AM EDT us Generic External Data Provider LAB BLOOD ORDERAB LES Final Result Performing Organization Address City/[facility] Co de Phone Number [facility] [address] [place] [phone] * Hepatitis C Antibody with Reflex to HCV, RNA, Quantitative, Real-Time PCR (09/14/2024 4:32 PM EST) Hepatitis C Antibody Nonreactive Nonreactive [facility] Comment:Antibodies to HCV no t detected; does not exclude early acuteHCV infection. Blood Venous blood specimen / Unknown 09/14/2024 4:32 PM EST 09/14/2024 6:05 PM EST us Mariya Cho MD LAB BLOOD ORDERAB LES Final Result Performing Organization Address City/[facility]/ZIP Co de Phone Number [facility] [address] [place] [address] [phone] * HIV-1/2 Antigen and Antibodies, Fourth Generation, with Reflexes (09/14/2024 4:32 PM EST) HIV AB/AG Nonreactive Nonreactive [facility] Comment:HIV-1 p24 Ag and/or HIV-1/HIV-2 Ab not detected.A test result that is nonreactive does not exclude thepossibility of exposure to or infection with HIV-1 and/orHIV-2. Nonreactive results in this assay for individualswith prior exposure to HIV-1 and/or HIV-2 may be due toantigen and antibody levels that are below the limit ofdetection of this assay.The [employer] HIV Ag/Ab Combo assay result andsupplemental assay results should be interpreted inconjunction with the patient's clinical presentation,history and other laboratory results. If the results areinconsistent with clinical evidence, additional testing issuggested to confirm the result. Blood Venous blood specimen / Unknown 09/14/2024 4:32 PM EST 09/14/2024 6:05 PM EST us Mariya Cho MD LAB BLOOD ORDERAB LES Final Result Performing Organization Address City/[facility]/ZIP Co de Phone Number [facility] [address] [place] [phone] * (ABNORMAL) Lipid Panel, Standard (09/14/2024 4:23 PM EST) Triglycerides 194(H) <150 mg/dL [facility] Comment:Desirable Triglyceri de: less than 150 mg/dLBorderline High Triglyceride 150-199 mg/dLHigh Triglyceride: 200-499 mg/dLVery High Triglyceride: greater than or equal to 5OO mg/dL Cholesterol 131 <200 mg/dL [facility] Comment:Desirable Cholestero l: less than 200 mg/dLBorderline High Cholesterol: 200-239 mg/dLHigh Cholesterol: greater than 239 mg/dL LDL Cholesterol Calculated 62 <100 mg/dL [facility] Comment:Desirable LDL: less than 100 [...] ORDERAB LES Final Result Performing Organization Address City/State/[facility] Co de Phone Number [facility] [address] [place] [address] [phone] from Last 3 Months or Most Recently Relevant to Health Maintenance Insurance [employer] < 65 [place] [id number] Care Teams Field Service Analyst Relationship Specialty Start Date End Date Mariya Juan MD [address] [place] [address] PCP - General Internal Medicine 04/28/23
--- OUTSIDE RECORDS SUMMARY | 2025-03-22 10:58 | XMS_ITS | Encounter Summary ---
Author Organization [employer] Address [address] [facility] 7t [place] [address] Care Team Providers Care Photograph Developer Name Role Phone Kay Dennis Primary Care Provider +1- [phone] Mariya Juan MD Primary Care Pro vider Encounter Details Date Type Department Care Team (Late st Contact Info) Description 02/09/[address] [facility] MEDICINE [address] [place] [phone] Kay Dennis FNP [address] [place] [address] Dept [place] [address] Social History Tobacco Use Types Packs/Day Years [...] on filedocumented in this encounter Care Teams Photograph Developer Relationship Specialty Start Date End Date Kay Dennis FNP PCP - General Family Medicine 07/05/22 04/27/23 Mariya Juan MD [address] [place] [address] PCP - General Internal Medicine 04/28/23 documented as of this encounter
--- OUTSIDE RECORDS SUMMARY | 2025-03-22 10:58 | XMS_ITS | Encounter Summary ---
Author Organization [employer] Address [address] [place] [address] 7t [place] [address] Care Team Providers Care Green Chain Puller Name Role Phone Mariya Juan MD Primary Care Pro vider Reason for Visit * Reason Comments Med Refill Encounter Details Date Type Department Care Team (Late st Contact Info) Description 05/23/2023 Refill [facility] [address] [place] [address] Kay Dennis FNP [address] [place] [address] Dept [place] [address] Social History Tobacco Use Types Packs/Day Years [...] documented as of this encounter Care Teams Green Chain Puller Relationship Specialty Start Date End Date Mariya Juan MD [address] [place] [address] PCP - General Internal Medicine 04/28/23 documented as of this encounter
--- OUTSIDE RECORDS SUMMARY | 2025-03-22 10:58 | XMS_ITS | Encounter Summary ---
Author Organization [employer] Address [address] [facility] 7t [place] [address] Care Team Providers Care Flash Oven Operator Name Role Phone Kay Dennis Primary Care Provider +1- [phone] Mariya Juan MD Primary Care Pro vider Reason for Visit * Reason Onset Date Comments Durable Medical Equipment 02/25/2023 Encounter Details Date Type Department Care Team (Late st Contact Info) Description 02/25/2023 Telephone [facility] [address] [place] [address] Kay Dennis FNP [address] [facility] [place] [address] Durable Medical Equipment Social History Tobacco Use [...] If any questions please contact Tammy at [phone] documented in this encounter Plan of Treatment Not on file documented as of this encounter Visit Diagnoses Not on filedocumented in this encounter Care Teams Flash Oven Operator Relationship Specialty Start Date End Date Kay Dennis FNP PCP - General Family Medicine 07/05/22 04/27/23 Mariya Juan MD [address] [place] [address] PCP - General Internal Medicine 04/28/23 documented as of this encounter
--- OUTSIDE RECORDS SUMMARY | 2025-03-22 10:58 | XMS_ITS | Clinical Summary ---
Author Organization [facility] Address [address] [facility] [address] [place] [address] Phone Care Team Providers Care Coating Machine Operator Helper Name Role Phone Sharon Baum MD Primary Care Provider [phone] Allergies No known active allergies Medications Buprenorphine [...] to 49 Years) Completed 04/28/2023, 02/17/2013 Insurance [facility] ([id number]) [facility] ([id number]) [place] [id number] Care Teams Coating Machine Operator Helper Relationship Specialty Start Date End Date Sharon Baum MD [address] [place] [address] PCP - General Internal Medicine 10/20/22
--- OUTSIDE RECORDS SUMMARY | 2025-03-22 10:58 | XMS_ITS | Encounter Summary ---
Author Organization [employer] Address [address] [facility] [address] 7[address] [place] [address] Care Team Providers Care Bait Packer Name Role Phone Mariya Juan MD Primary Care Pro vider Encounter Details Date Type Department Care Team (Late st Contact Info) Description 03/22/2025 Orders Only GENERIC EXTERNAL DATA [...] COAG CLINIC Routine 03/22/2025 10:42 AM EDT documented in this encounter Results * (ABNORMAL) PROTHROMBIN TIME WHOLE BLD POC (03/22/2025 10:42 AM EDT) Protime 33.9(H) 11.1 - 13.5 sec [facility] 03/22/2025 10:4 2 AM EDT 03/22/2025 10:43 AM EDT us Generic External Data Provider LAB BLOOD ORDERAB LES Final Result [facility] [address] [place] [phone] * (ABNORMAL) ~PT, ~INR - ANTI COAG CLINIC (03/22/2025 10:42 AM EDT) Prothrombin Time INR 2.8(H) 0.9 - 1.1 [facility] Comment:METER #: [id number] TERNATIONAL NORMALIZED RATIO (INR) REFERENCE RANGES Reference [...] Provider LAB BLOOD ORDERAB LES Final Result [facility] [address] [place] [phone] [phone] documented in this encounter Visit Diagnoses Not on filedocumented in this encounter Additional Health Concerns Assessment Noted Time PHQ-9 Depression Total Score: 12 07/24/ 024 2:22 PM EDT documented as of this encounter Care Teams Bait Packer Relationship Specialty Start Date End Date Mariya Juan MD [address] [place] [address] PCP - General Internal Medicine 04/28/23 documented as of this encounter
--- OUTSIDE RECORDS SUMMARY | 2025-03-22 10:58 | XMS_ITS | Encounter Summary ---
Author Organization [employer] Address [address] [place] [address] Care Team Providers Care Flame Hardener Name Role Phone Kay Dennis BIZTALK DEVELOPER Primary Care Provider [phone]- [phone] Mariya Juan MD Primary Care Pro vider Encounter Details Date Type Department Care Team (Late st Contact Info) Description 01/17/2023 Telephone [facility] MED[facility]INE [address] [place] [phone] Kay Dennis FNP [address] [place] [address] Dept [place] [address] Social History Tobacco Use Types Packs/Day Years [...] dosing. Please call her to advised at [phone]. documented in this encounter Plan of Treatment Not on file documented as of this encounter Visit Diagnoses Not on filedocumented in this encounter Care Teams Flame Hardener Relationship Specialty Start Date End Date Kay Dennis FNP PCP - General Family Medicine 07/05/22 04/27/23 Mariya Juan MD [address] [place] [address] PCP - General Internal Medicine 04/28/23 documented as of this encounter
--- OUTSIDE RECORDS SUMMARY | 2025-03-22 10:58 | XMS_ITS | Data Portability ---
Author Organization [place] - [facility], Allergy Address [address] [facility] [address] [place] [id number] Care Team Providers Care Logistics Technician Name Role Phone NAME, KEIRA Primary [...] 50 mcg/actua tion nasal spray,darrin pension [id number], [address] [place], [phone], 15:20:32 Patient TargetsNo targets recorded. Patient InstructionsNo instructions recorded. Reason for Referral None Reported. 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 Procedures Surgical History Date Name Laterality Status Provider Name and Address Organization Details Recorded Time Heart Surgery completed Daphnie Welsh [place] - [facility] [place] [place] [place] 04/11/2024 15:01:33 Imaging Results None recorded. Procedure [...] Updated DateTime 08/30/2024 190.5 cm 30 kg/m2 371914.17 g Nelli Fishman [place] - [facility] [place] [place] 08/30/2024 10:37:44 Date Recorded Body height Body mass index (BMI) Body weight Provider Name and Address Organization Details Last Updated DateTime 04/11/2024 190.5 cm 30 kg/m2 550964.17 g Daphnie Welsh [place] [facility] [place] [place] 04/11/2024 14:58:50 Social History None recorded. Functional Status None recorded. Mental Status None recorded. Family History Nothing Reported. Medical History No medical history recorded. Past Encounters Encounter ID Performer Location Encounter Start Date Encounter Closed Date Diagnosis/Indication Diagnosis SNOMED-CT Code Diagnosis ICD10 Code Diagnosis Note [id number] CHANI KIM PA-C [facility] [address] [place] [address] 04/11/2024 14:35:25 04/11/2024 15:13:40 Amygdalolith 3035783 J35.8 Allergic rhinitis 771525 04 J30.89 [id number] EDDIE MONTES MD [facility] [address] [place] [address] 08/30/2024 10:28:36 08/30/2024 10:58:17 Amygdalolith 5259928 J35.8 Discourage d surgery. Recommend observatio n. [...] Roberts Member ID Guarantor Name 11/15/2024 1 [facility] - DOS ON OR AFTER 2023 - [facility] (MEDICARE REPLACEMENT/AD VANTAGE - HMO) Ludin Mendes [id number] Ludin Mendes 08/30/2024 1 [facility] - DOS ON OR AFTER 2023 - MEDICARE ADVANTAGE [place] (MEDICARE REPLACEMENT/AD VANTAGE - PPO) Ludin Mendes [id number] Ludin Mendes Notes Date Note Type Note [...] not continue it. CHANI KIM PA-C [address], [address], [facility] - [facility] 04/11/2024 15:25:28 08/30/2024 text/html 38-year-old male presents for evaluation of tonsil stones. Bleeding has resolved. He has not been using flonase but finds mouth rinses helpful. He is less bothered than before. EDDIE MONTES MD [address] [place] [address], [place], [address], [facility] - [facility] 08/30/2024 11:00:13
--- OUTSIDE RECORDS SUMMARY | 2025-03-22 10:58 | XMS_ITS | Encounter Summary ---
Author Organization [employer] Address [address] [place] [address] 7 [place] [address] Care Team Providers Care Religious Education Director Name Role Phone Mariya Juan MD Primary Care Pro vider Reason for Visit * Reason Onset Date Comments Med Refill 04/20/2024 Encounter Details Date Type Department Care Team ([facility] st Contact Info) Description 04/20/2024 Telephone [facility] [address] [place] [address] Mariya Juan MD [address] [place] [address] Med Refill Social History Tobacco Use Types [...] EDT Telephone call placed to Freida at [facility] Coumadin clinic. Gave orders to continue [...] PM EDT Re[place] Fre[place] [facility] [place] [...] per PCP. * Telephone Encounter - Blanca Abbtot RN - 04/20/2024 4:01 PM EDT TC [place] [facility] [place] to inquire when pt last got INR drawn. According to the creative designer the pt was to come for a [...] solution prefilled syringe To be sent to: [id number] [place], [place] - [address] [facility] documented in this encounter Plan of Treatment Not on file documented as of this encounter Visit Diagnoses Not on filedocumented in this encounter Additional Health Concerns Assessment Noted Time PHQ-9 Depression Total Score: 04/28/20 23 2:32 PM EDT documented as of this encounter Care Teams Religious Education Director Relationship Specialty Start Date End Date Mariya Juan MD [address] [place] [id number] PCP - General Internal Medicine 04/28/23 documented as of this encounter
== END 2025-03-22 10:53 | disposition home or self-care (01) ==
LOC: HO.ACS 10:33
PROVIDERS: PCP Student in an Organized Health Care Education/Training Program; Visit Provider Internal Medicine Medical Oncology
DX: Z79.01 Long term (current) use of anticoagulants (principal)

== ENCOUNTER → 2025-03-22 10:33 | Outpatient (BNVA) | payer OTHER, SELFPAY | PROVIDERS: PCP Student in an Organized Health Care Education/Training Program; Visit Provider Internal Medicine Medical Oncology | DX: Z95.2 Presence of prosthetic heart valve (principal); Z79.01 Long term (current) use of anticoagulants; Z51.81 Encounter for therapeutic drug level monitoring | CPT/HCPCS: 85610; 99211 ==

== ENCOUNTER 2025-04-05 11:10 | Outpatient (AMB) | payer OTHER, SELFPAY ==
[2025-04-05 11:37] LABS: ~PT, ~INR - Anti Coag Clinic 4.2 (0.9-1.1)
--- NOTE | 2025-04-05 11:41 | MHC.OFFVISCO ---
Intake Intake Visit Reasons: Anticoagulation Allergies hydrocodone [From VICODIN] Allergy (Unknown, Verified 04/05/25 11:31) GI UPSET Medication List - Last Reconciled 04/05/25 by Grace Mccloud RN acetaminophen 325 mg PO QID PRN 7 days acetaminophen ER (Tylenol Arthritis Pain) 1,300 mg PO Q8H PRN albuterol sulfate 90 mcg/actuation (ProAir HFA) 2 puffs inhalation Q4-6H PRN atorvastatin 20 mg PO DAILY blood pressure test kit-large As directed buprenorphine-naloxone 8-2 mg (Suboxone) 1 film sublingual BID celecoxib (Celebrex) 200 mg PO DAILY PRN coenzyme Q10 (Co Q-10) PO fluticasone propionate 50 mcg/actuation sprays intranasal PRN hydroxyzine pamoate 25 mg PO TID inhalational spacing device (Busap Pascale [facility] spacer) As directed loratadine 10 mg PO DAILY melatonin 5 mg PO BEDTIME PRN omeprazole 20 mg PO DAILY ondansetron 4 mg PO Q8H PRN 4 days ondansetron HCl 4 mg PO Q8H PRN polyethylene glycol 3350 (Miralax) 17 grams PO DAILY sodium chloride 0.65% (Deep Sea Nasal) sprays intranasal warfarin 7.5 mg See Protocol PO 2XW warfarin 10 mg See Protocol PO 5XW Nursing Note INR 4.2 out of therapeutic range Medications and supplements reviewed Patient status: May have had less greens Medications or supplements: states no changes Diet: good Denies any signs and symptoms of bleeding or clotting or unusual bruising Bleeding, bruising, clotting discussed Nutritional guidance given: try to have 2 greens / week Dose: hold today then decrease weekly dose 5mg sun teu thur/ 7.5mg x 4 days F/U INR Date : weekly - too labile ?? Patient verbalizing understanding of instructions given. Anti-Coag Initial Assessment Social Hx Patient Tobacco Use Status: Former Tobacco user Tobacco use type: Cigarette alcohol intake: never Alcohol intake frequency: does not drink Coding Level of Care Code Est Patient Level 1 Diagnoses Current use of anticoagulant therapy Z79.01 Results AMB INR Fingerstick AMB INR Fingerstick 4.2 Last Edit by Grace Mccloud RN on 04/05/25 11:38 MANUAL ENTRY Assessment & Plan Assessment & Plan (1) Current use of anticoagulant therapy: Code(s): Z79.01 - [facility] (current) 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
--- OUTSIDE RECORDS SUMMARY | 2025-04-05 12:09 | XMS_ITS | Clinical Summary ---
Author Organization [facility] Address [address] [place] [address] Phone Care Team Providers Care Supervisor Gluing Name Role Phone Sharon Baum MD Primary Care Provider [phone] Allergies No known active allergies Medications Buprenorphine [...] to 49 Years) Completed 04/28/2023, 02/17/2013 Insurance [facility] ([id number]) [facility] ([id number]) DENIS ERNANDEZ [id number] Care Teams Supervisor Gluing Relationship Specialty Start Date End Date Sharon Baum MD [address] [place] [id number] PCP - General Internal Medicine 10/20/22
== END 2025-04-05 11:43 | disposition home or self-care (01) ==
LOC: HO.ACS 11:10
PROVIDERS: PCP Student in an Organized Health Care Education/Training Program; Visit Provider Internal Medicine Medical Oncology
DX: Z79.01 Long term (current) use of anticoagulants (principal)

== ENCOUNTER → 2025-04-05 11:10 | Outpatient (BNVA) | payer OTHER, SELFPAY | PROVIDERS: PCP Student in an Organized Health Care Education/Training Program; Visit Provider Internal Medicine Medical Oncology | DX: Z95.2 Presence of prosthetic heart valve (principal); Z79.01 Long term (current) use of anticoagulants; Z51.81 Encounter for therapeutic drug level monitoring | CPT/HCPCS: 85610; 99211 ==

== ENCOUNTER 2025-04-12 11:27 | Outpatient (AMB) | payer OTHER, SELFPAY ==
--- NOTE | 2025-04-12 11:39 | MHC.OFFVISCO ---
Intake Intake Visit Reasons: Anticoagulation Allergies hydrocodone [From VICODIN] Allergy (Unknown, Verified 04/12/25 11:28) GI UPSET Medication List - Last Reconciled 04/12/25 by Kayla Alvarez RN acetaminophen 325 mg PO QID PRN 7 days acetaminophen ER (Tylenol Arthritis Pain) 1,300 mg PO Q8H PRN albuterol sulfate 90 mcg/actuation (ProAir HFA) 2 puffs inhalation Q4-6H PRN atorvastatin 20 mg PO DAILY blood pressure test kit-large As directed buprenorphine-naloxone 8-2 mg (Suboxone) 1 film sublingual BID celecoxib (Celebrex) 200 mg PO DAILY PRN coenzyme Q10 (Co Q-10) PO fluticasone propionate 50 mcg/actuation sprays intranasal PRN hydroxyzine pamoate 25 mg PO TID inhalational spacing device ([employer] Pascale [facility] spacer) As directed loratadine 10 mg PO DAILY melatonin 5 mg PO BEDTIME PRN omeprazole 20 mg PO DAILY ondansetron 4 mg PO Q8H PRN 4 days ondansetron HCl 4 mg PO Q8H PRN polyethylene glycol 3350 (Miralax) 17 grams PO DAILY sodium chloride 0.65% (Deep Sea Nasal) sprays intranasal warfarin 7.5 mg See Protocol PO 2XW warfarin 10 mg See Protocol PO 5XW Nursing Note INR: 2.4?out of therapeutic range of 2.5-3.5 Pt states he missed a dose of 7.5mg on Tuesday and was held on Tuesday04/05/25 when he was seen in [facility] and INR was 4.2 Medications and supplements reviewed Patient status: feels well Medications or supplements: no changes Diet: usual diet for pt Denies any signs and symptoms of bleeding or clotting or unusual bruising Bleeding, bruising, clotting discussed Nutritional guidance given: to avoid greens today Dose: increase today's dose to 10mg then 7.5mg X 4 days and 5mg X 3 days on Sun, and . F/U INR Date: 1 week?? Patient verbalizing understanding of instructions with read back given. Anti-Coag Initial Assessment Social Hx Patient Tobacco Use Status: Former Tobacco user Tobacco use type: Cigarette alcohol intake: never Alcohol intake frequency: does not drink Coding Level of Care Code Est Patient Level 1 Diagnoses Current use of anticoagulant therapy Z79.01 Results AMB INR Fingerstick AMB INR Fingerstick 2.4 Last Edit by Kayla Alvarez, JOLENE on 04/12/25 11:38 interface delay AMB INR Fingerstick AMB INR Fingerstick 2.4 Last Edit by Kayla Alvarez, JOLENE on 04/12/25 11:39 interface delay Assessment & Plan Assessment & Plan (1) Current use of anticoagulant therapy: Code(s): Z79.01 - terminal gauger supervisor (current) 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
--- OUTSIDE RECORDS SUMMARY | 2025-04-12 12:15 | XMS_ITS | Clinical Summary ---
Author Organization [facility] Address [address] [place] [address] Phone Care Team Providers Care Electric Motor Assembler Name Role Phone Sharon Baum MD Primary Care Provider [phone] Allergies No known active allergies Medications Buprenorphine [...] to 49 Years) Completed 04/28/2023, 02/17/2013 Insurance [facility] ([id number]) [facility] ([id number]) DEN[place] ERNANDEZ [id number] Care Teams Electric Motor Assembler Relationship Specialty Start Date End Date Sharon Baum MD [address] [place] [id number] PCP - General Internal Medicine 10/20/22
[2025-04-12 12:29] LABS: Prothrombin Time Whole Bld POC 29.1 sec (11.1-13.5); ~PT, ~INR - Anti Coag Clinic 2.4 (0.9-1.1)
== END 2025-04-12 12:04 | disposition home or self-care (01) ==
LOC: HO.ACS 11:27
PROVIDERS: PCP Student in an Organized Health Care Education/Training Program; Visit Provider Internal Medicine Medical Oncology
DX: Z79.01 Long term (current) use of anticoagulants (principal)

== ENCOUNTER → 2025-04-12 11:27 | Outpatient (BNVA) | payer OTHER, SELFPAY | PROVIDERS: PCP Student in an Organized Health Care Education/Training Program; Visit Provider Internal Medicine Medical Oncology | DX: Z95.2 Presence of prosthetic heart valve (principal); Z79.01 Long term (current) use of anticoagulants; Z51.81 Encounter for therapeutic drug level monitoring | CPT/HCPCS: 85610; 99211 ==

== ENCOUNTER 2025-04-19 11:51 | Outpatient (AMB) | payer OTHER, SELFPAY ==
[2025-04-19 11:59] LABS: Prothrombin Time Whole Bld POC 45.1 sec (11.1-13.5); ~PT, ~INR - Anti Coag Clinic 3.8 (0.9-1.1)
--- NOTE | 2025-04-19 12:03 | MHC.OFFVISCO ---
Intake Intake Visit Reasons: Anticoagulation Allergies hydrocodone [From VICODIN] Allergy (Unknown, Verified 04/19/25 11:55) GI UPSET Medication List - Last Reconciled 04/19/25 by Kayla Alvarez RN acetaminophen 325 mg PO QID PRN 7 days acetaminophen ER (Tylenol Arthritis Pain) 1,300 mg PO Q8H PRN albuterol sulfate 90 mcg/actuation (ProAir HFA) 2 puffs inhalation Q4-6H PRN atorvastatin 20 mg PO DAILY blood pressure test kit-large As directed buprenorphine-naloxone 8-2 mg (Suboxone) 1 film sublingual BID celecoxib (Celebrex) 200 mg PO DAILY PRN coenzyme Q10 (Co Q-10) PO fluticasone propionate 50 mcg/actuation sprays intranasal PRN hydroxyzine pamoate 25 mg PO TID inhalational spacing device ([employer] Simple Pascale [employer] [facility] [employer] spacer) As directed loratadine 10 mg PO DAILY melatonin 5 mg PO BEDTIME PRN omeprazole 20 mg PO DAILY ondansetron 4 mg PO Q8H PRN 4 days ondansetron HCl 4 mg PO Q8H PRN polyethylene glycol 3350 (Miralax) 17 grams PO DAILY sodium chloride 0.65% (Deep Sea Nasal) sprays intranasal warfarin 7.5 mg See Protocol PO 2XW warfarin 10 mg See Protocol PO 5XW Nursing Note INR: 3.8 out of therapeutic range of 2.5-3.5 Medications and supplements reviewed No changes in health, diet, medications, or supplements, Denies any signs and symptoms of bleeding or bruising or clotting. Bleeding, bruising, clotting discussed Nutritional guidance given to have a serving of greens today Dose: 7.5mg X 4 days and 5mg X 3 days (//) F/U INR: 1 week Patient verbalizes understanding of instructions given Anti-Coag Initial Assessment Social Hx Patient Tobacco Use Status: Former Tobacco user Tobacco use type: Cigarette alcohol intake: never Alcohol intake frequency: does not drink Coding Level of Care Code Est Patient Level 1 Diagnoses Current use of anticoagulant therapy Z79.01 Results AMB INR Fingerstick AMB INR Fingerstick 3.8 Last Edit by Kayla Alvarez RN on 04/19/25 11:58 interface delay Assessment & Plan Assessment & Plan (1) Current use of anticoagulant therapy: Code(s): Z79.01 - [facility] (current) 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
--- OUTSIDE RECORDS SUMMARY | 2025-04-19 12:46 | XMS_ITS | Clinical Summary ---
Author Organization [facility] Address [address] [place] [address] Phone Care Team Providers Care Driveway Attendant Name Role Phone Sharon Baum MD Primary Care Provider [phone] Allergies No known active allergies Medications Buprenorphine [...] to 49 Years) Completed 04/28/2023, 02/17/2013 Insurance [facility] ([id number]) [facility] ([id number]) DNEIS ERNANDEZ [phone] Care Teams Driveway Attendant Relationship Specialty Start Date End Date Sharon Baum MD [address] [place] [id number] PCP - General Internal Medicine 10/20/22
== END 2025-04-19 12:06 | disposition home or self-care (01) ==
LOC: HO.ACS 11:51
PROVIDERS: PCP Student in an Organized Health Care Education/Training Program; Visit Provider Internal Medicine Medical Oncology
DX: Z79.01 Long term (current) use of anticoagulants (principal)

== ENCOUNTER → 2025-04-19 11:51 | Outpatient (BNVA) | payer OTHER, SELFPAY | PROVIDERS: PCP Student in an Organized Health Care Education/Training Program; Visit Provider Internal Medicine Medical Oncology | DX: Z95.2 Presence of prosthetic heart valve (principal); Z79.01 Long term (current) use of anticoagulants; Z51.81 Encounter for therapeutic drug level monitoring | CPT/HCPCS: 85610; 99211 ==

== ENCOUNTER 2025-04-21 19:37 | Emergency (ER) | payer OTHER, SELFPAY ==
[2025-04-21 19:43] VITALS: BP 144/100; PULSE 66; O2SAT 99
[2025-04-21 19:45] VITALS: BP 128/58; PULSE 80; RESP 18; TEMP 36.5; O2SAT 96
[2025-04-21 20:16] LABS: MANUAL DIFF FLAG NO
[2025-04-21 20:18] LABS: Basophils Percent Auto 0.3 % (0-2); Eosinophils Absolute Auto 0.1 X10*3/uL (0.0-0.4); Eosinophils Percent Auto 1.3 % (0-4); Hematocrit 40.3 % (42.0-52.0); Hemoglobin 13.2 g/dl (14.0-18.0); Imm Gran Abs Auto 0.01 X10*3/uL (0.00-0.03); Imm Gran Pct Auto 0.3 % (0.0-0.4); Lymphocytes Absolute Auto 1.2 X10*3/uL (1.2-4.9); Lymphocytes Percent Auto 31.5 % (20-40); Mean Corpuscular HGB Conc 32.8 g/dl (31.0-36.0); Mean Corpuscular Hemoglobin 25.6 pg (27.0-33.0); Mean Corpuscular Volume 78.1 fL (80.0-98.0); Mean Platelet Volume 10.2 fL (9.4-12.4); Monocytes Absolute Auto 0.4 X10*3/uL (0.1-1.2); Monocytes Percent Auto 9.5 % (2-11); Neutrophils Absolute Auto 2.2 x10*3/uL (2.0-8.3); Neutrophils Percent Auto 57.1 % (45-73); Platelet Count 230 X10*3/uL (160-400); Red Blood Count 5.16 X10*6/uL (4.60-5.80); Red Cell Distribution Width 13.3 % (11.0-16.0); White Blood Count 3.9 X10*3/uL (4.8-10.8)
[2025-04-21 20:32] LABS: Alanine Aminotransferase 48 U/L (0-40); Albumin Level 3.9 g/dL (3.5-5.0); Alkaline Phosphatase 128 U/L (39-117); Anion Gap 13 (12-20); Aspartate Amino Transferase 35 U/L (5-37); Bilirubin Direct 0.1 mg/dL (0.0-0.5); Bilirubin Total 0.3 mg/dL (0.0-1.0); Blood Urea Nitrogen 15 mg/dL (9-16); Calcium 8.7 mg/dL (8.4-10.2); Carbon Dioxide 25 mmol/L (22-29); Chloride 105 mmol/L (96-108); Creatinine Clr Calc Pharmacy 150.2; Estimated Glomerular Filt Rate > 60; Glucose Random 115 mg/dL (60-115); Lipase 15 U/L (8-78); Potassium 3.6 mmol/L (3.3-5.1); Sodium 139 mmol/L (135-145); Total Protein 6.9 g/dL (6.5-8.0)
--- NOTE | 2025-04-21 21:10 | ED_ITS ---
HPI - General Adult General Chief complaint: Abdominal Pain Stated complaint: abd pain 10/ feeling nauseous no vomit Time Seen by Provider: 04/21/25 21:09 History of Present Illness ED Provider: Shayna NAJERA narrative: The patient is a 39-year-old male. He has a history of endocarditis and a mechanical mitral valve. He is on warfarin. He says that he is prone to constipation. He is on Suboxone. He says that around 06:00 this evening he started having mid abdominal pain that came in waves that his similar to pain he has had when he has been constipated. He called an ambulance because of the pain. Just before the ambulance arrived he had a bowel movement and he says the stools were not particularly hard. He felt briefly better but then the pain returned and he came with the paramedics to the hospital. Here in the emergency room he says that the pain still feels like pain he considers typical of his constipation. He does not think that he has impacted because he was able to pass stool that was not particularly hard. Nevertheless he is stating that he has ongoing central abdominal pain typical of his constipation discomfort and is requesting something for this discomfort. Related Data Home Medications ?Medication ?Instructions ?Recorded ?Confirmed acetaminophen 650 mg 1,300 mg PO Q8H PRN Pain 09/24/22 04/19/25 tablet,extended release (Tylenol Arthritis Pain) albuterol sulfate 90 mcg/actuation 2 puff inhalation Q4-6H PRN 09/24/22 04/19/25 aerosol inhaler (ProAir HFA) Wheezing buprenorphine 8 mg-naloxone 2 mg 1 film sublingual BID 09/24/22 04/19/25 sublingual film (Suboxone) loratadine 10 mg tablet 10 mg PO DAILY 09/24/22 04/19/25 inhalational spacing device #1 ea 09/29/22 04/19/25 (Raghav Ashraf [facility] spacer) polyethylene glycol 3350 17 17 g PO DAILY 04/08/23 04/19/25 gram/dose oral powder (Miralax) warfarin 5 mg tablet 10 mg PO 5XW 04/21/23 04/19/25 warfarin 7.5 mg tablet 7.5 mg PO 2XW 04/21/23 04/19/25 atorvastatin 20 mg tablet 20 mg PO DAILY 06/08/23 04/19/25 hydroxyzine pamoate 25 mg capsule 25 mg PO TID 10/21/23 04/19/25 blood pressure test kit-large #1 ea 12/16/23 04/19/25 coenzyme Q10 [Co Q-10] PO 09/13/24 04/19/25 sodium chloride 0.65 % nasal spray spray intranasal 09/20/24 04/19/25 aerosol (Deep Sea Nasal) celecoxib 100 mg capsule (Celebrex) 200 mg PO DAILY PRN 11/09/24 04/19/25 melatonin 5 mg tablet 5 mg PO BEDTIME PRN 02/07/25 04/19/25 fluticasone propionate 50 spray intranasal PRN 03/08/25 04/19/25 mcg/actuation nasal spray,suspension Previous Rx's ?Medication ?Instructions ?Recorded acetaminophen 325 mg capsule 325 mg PO QID PRN pain 7 days #28 08/15/23 caps ondansetron 4 mg disintegrating 4 mg PO Q8H PRN nausea and 12/25/23 tablet vomiting 4 days #7 tabs omeprazole 20 mg capsule,delayed 20 mg PO DAILY #30 caps 10/16/24 release ondansetron HCl 4 mg tablet 4 mg PO Q8H PRN nausea and 01/03/25 vomiting #10 tabs Allergies Allergy/AdvReac Type Severity Reaction Status Date / Time hydrocodone [From VICODIN] Allergy Unknown GI UPSET Verified 04/21/25 19:48 Review of Systems 2 Review of Systems: Yes all other systems are reviewed and are negative [facility] Past Medical History Medical History (Updated 04/22/25 @ 00:01 by Background Daemon) Current use of anticoagulant therapy Anticoagulant causing adverse effect in therapeutic use CVA (cerebrovascular accident due to intracerebral hemorrhage) Endocarditis of prosthetic mitral valve SIRS (systemic inflammatory response syndrome) Myalgia Opioid use disorder Fracture of proximal end of humerus Asthma Surgical History History of heart valve replacement with mechanical valve Heart valve replaced Presence of other heart-valve replacement Family History Family History Father Diabetes Mother H/O thyroid disease Social History Social History Household Members: Family Household Members Other:: 3 kids Housing: Apartment Do you presently have visiting nurse or other home services: No Alcohol intake: never Patient Tobacco Use Status: Former Tobacco user Tobacco use type: Cigarette Smoked in Last 30 Days: No Use of substances other than those prescribed or required for medical reasons: No Substance Use Type: Former Substance User and Other Advance Directives: No Advance Directives Information Provided: No service: No Current occupational status: unemployed and disabled 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 The patient does not seem obviously uncomfortable or ill. Orientation/consciousness: patient oriented x3 HENMT Other: Face is symmetrical, mucous membranes moist. Eyes General: appearance normal, both eyes and all related structures Neck Neck: Yes full ROM Resp Effort & Inspection: normal respiratory effort Auscultation: clear to auscultation bilaterally Cardio Other: The patient has a mechanical click, heart sounds are otherwise unremarkable. No murmur. GI Other: The abdomen is soft and not locally tender in any way. No guarding. Skin Other: Skin is dry and unremarkable Neuro General: patient oriented x3, gait normal, tone normal, moves all extremities, no focal motor deficits and CN's II-XI intact bilaterally Extrem General: Yes normal to inspection and Yes no pedal edema Medications Administered Discontinued Medications Generic Name Dose Route Start Last Admin Trade Name Freq PRN Reason Stop Dose Admin Magnesium Citrate 300 ml 04/21/25 21:18 04/21/25 21:29 Magnesium Citrate 300 Ml Solution PO 04/21/25 21:19 300 ml ONCE ONE Administration Oxycodone HCl 5 mg 04/21/25 21:18 04/21/25 21:29 Oxycodone Hcl Immed Release 5 Mg Tablet PO 04/21/25 21:19 5 mg ONCE ONE Administration Medical Decision Making Medical Decision Making MDM Narrative: The patient is a 39-year-old male. He has a history of substance use disorder and is on Suboxone. He also has a history of endocarditis and has a mechanical mitral valve. He is on warfarin. He presents today complaining of abdominal pain that he says is typical of discomfort he has a when he is constipated. He said that after calling an ambulance he had a bowel movement and felt transiently better but then had a return of his discomfort. I proposed doing a rectal exam and possibly giving him an enema but he did not wish to have a rectal exam done because he felt that he had just had a bowel movement. He nevertheless requested something for pain. I proposed giving him a dose of oxycodone orally and a bottle of magnesium citrate which he could take when he went home. He seemed satisfied with this proposal and this was done. He was advised to drink the bottle of magnesium citrate at home and to continue daily MiraLax. Lab Data 04/21/25 20:12 04/21/25 20:12 Labs: Lab Results 04/21/25 Range/Units 20:12 WBC 3.9 L (4.8-10.8) X10*3/uL RBC 5.16 (4.60-5.80) X10*6/uL Hgb 13.2 L (14.0-18.0) g/dl Hct 40.3 L (42.0-52.0) % MCV 78.1 L (80.0-98.0) fL MCH 25.6 L (27.0-33.0) pg MCHC 32.8 (31.0-36.0) g/dl RDW 13.3 (11.0-16.0) % Plt Count 230 (160-400) X10*3/uL MPV 10.2 (9.4-12.4) fL Immature Gran % (Auto) 0.3 (0.0-0.4) % Neut % (Auto) 57.1 (45-73) % Lymph % (Auto) 31.5 (20-40) % [place] % (Auto) 9.5 (2-11) % Eos % (Auto) 1.3 (0-4) % Baso % (Auto) 0.3 (0-2) % Lymph # (Auto) 1.2 (1.2-4.9) X10*3/uL [place] # (Auto) 0.4 (0.1-1.2) X10*3/uL Eos # (Auto) 0.1 (0.0-0.4) X10*3/uL Baso # (Auto) 0.0 (0.0-0.2) X10*3/uL Abs Immat Gran (auto) 0.01 (0.00-0.03) X10*3/uL Absolute Neuts (auto) 2.2 (2.0-8.3) x10*3/uL Absolute Nucleated RBC 0.000 (0.0-0.012) X10*3/uL Nucleated RBC % (auto) 0.0 (0.0-0.2) /100WBC Sodium 139 (135-145) mmol/L Potassium 3.6 (3.3-5.1) mmol/L Chloride 105 (96-108) mmol/L Carbon Dioxide 25 (22-29) mmol/L Anion Gap 13 (12-20) BUN 15 (9-16) mg/dL Creatinine 0.88 (0.5-1.4) mg/dL Estim Creat Clear Calc 150.2 Estimated GFR > 60 Random Glucose 115 (60-115) mg/dL Calcium 8.7 (8.4-10.2) mg/dL Total Bilirubin 0.3 (0.0-1.0) mg/dL Direct Bilirubin 0.1 (0.0-0.5) mg/dL AST 35 (5-37) U/L ALT 48 H (0-40) U/L Alkaline Phosphatase 128 H (39-117) U/L Total Protein 6.9 (6.5-8.0) g/dL Albumin 3.9 (3.5-5.0) g/dL Lipase 15 (8-78) U/L Discharge Plan Discharge Clinical Impression: Abdominal pain Patient Disposition: Home, Self-Care Instructions: Constipation (ED) Additional Instructions: Please drink the bottle of magnesium citrate when you get home. My hope is that this will help clean you out. Please continue taking MiraLax daily to prevent constipation in the future. Please follow up soon with your regular doctor. Return to the emergency room if significantly worse. Prescriptions: No Action warfarin 5 mg tablet 10 mg PO 5XW Protocol: Dose Management Condition: Tuesday (Week One) Dose/Route: 5 mg Instruction: 1 x 5 mg tablet Condition: Tuesday Dose/Route: 7.5 mg Instruction: 1 x 7.5 mg tablet Condition: Tuesday Dose/Route: 5 mg Instruction: 1 x 5 mg tablet Condition: Tuesday Dose/Route: 7.5 mg Instruction: 1 x 7.5 mg tablet Condition: Dose/Route: 5 mg Instruction: 1 x 5 mg tablet Condition: Tuesday Dose/Route: 7.5 mg Instruction: 1 x 7.5 mg tablet Condition: Tuesday Dose/Route: 7.5 mg Instruction: 1 x 7.5 mg tablet Condition: Tuesday ( Two) Dose/Route: 5 mg Instruction: 1 x 5 mg tablet Condition: Tuesday Dose/Route: 7.5 mg Instruction: 1 x 7.5 mg tablet Condition: Tuesday Dose/Route: 5 mg Instruction: 1 x 5 mg tablet Condition: Tuesday Dose/Route: 7.5 mg Instruction: 1 x 7.5 mg tablet Condition: Dose/Route: 5 mg Instruction: 1 x 5 mg tablet Condition: Tuesday Dose/Route: 7.5 mg Instruction: 1 x 7.5 mg tablet Condition: Tuesday Dose/Route: 7.5 mg Instruction: 1 x 7.5 mg tablet Protocol Text: Adjustment Start Date: Tuesday04/19/25 INR Value: 3.8 INR Date: 04/19/25 Recheck Date: 04/26/25 warfarin 7.5 mg tablet 7.5 mg PO 2XW Protocol: Dose Management Condition: Tuesday (Week One) Dose/Route: 5 mg Instruction: 1 x 5 mg tablet Condition: Tuesday Dose/Route: 7.5 mg Instruction: 1 x 7.5 mg tablet Condition: Tuesday Dose/Route: 5 mg Instruction: 1 x 5 mg tablet Condition: Tuesday Dose/Route: 7.5 mg Instruction: 1 x 7.5 mg tablet Condition: Dose/Route: 5 mg Instruction: 1 x 5 mg tablet Condition: Tuesday Dose/Route: 7.5 mg Instruction: 1 x 7.5 mg tablet Condition: Tuesday Dose/Route: 7.5 mg Instruction: 1 x 7.5 mg tablet Condition: Tuesday ( Two) Dose/Route: 5 mg Instruction: 1 x 5 mg tablet Condition: Tuesday Dose/Route: 7.5 mg Instruction: 1 x 7.5 mg tablet Condition: Tuesday Dose/Route: 5 mg Instruction: 1 x 5 mg tablet Condition: Tuesday Dose/Route: 7.5 mg Instruction: 1 x 7.5 mg tablet Condition: Dose/Route: 5 mg Instruction: 1 x 5 mg tablet Condition: Tuesday Dose/Route: 7.5 mg Instruction: 1 x 7.5 mg tablet Condition: Tuesday Dose/Route: 7.5 mg Instruction: 1 x 7.5 mg tablet Protocol Text: Adjustment Start Date: Tuesday04/19/25 INR Value: 3.8 INR Date: 04/19/25 Recheck Date: 04/26/25 omeprazole 20 mg capsule,delayed release(DR/EC) 20 mg PO DAILY Qty: 30 5RF ondansetron 4 mg tablet,disintegrating 4 mg PO Q8H PRN (Reason: nausea and vomiting) 4 Days Qty: 7 0RF ondansetron HCl 4 mg tablet 4 mg PO Q8H PRN (Reason: nausea and vomiting) Qty: 10 0RF acetaminophen 325 mg capsule 325 mg PO QID PRN (Reason: pain) 7 Days Qty: 28 0RF loratadine 10 mg tablet 10 mg PO DAILY albuterol sulfate [ProAir HFA] 90 mcg/actuation HFA aerosol inhaler 2 puff inhalation Q4-6H PRN (Reason: Wheezing) buprenorphine-naloxone [Suboxone] 8-2 mg film 1 film sublingual BID acetaminophen [Tylenol Arthritis Pain] 650 mg tablet extended release 1,300 mg PO Q8H PRN (Reason: Pain) (DME) Raghav Ashraf [facility] Spacer See Rx Instructions .ROUTE .MEDSUPPLY Qty: 1 Rx Instructions: As directed polyethylene glycol 3350 [Miralax] 17 gram/dose powder 17 g PO DAILY atorvastatin 20 mg tablet 20 mg PO DAILY hydroxyzine pamoate 25 mg capsule 25 mg PO TID Deep Sea Nasal 0.65 % aerosol,spray intranasal celecoxib [Celebrex] 100 mg capsule 200 mg PO DAILY PRN (DME) blood pressure test kit-large Kit See Rx Instructions .ROUTE BID Qty: 1 Rx Instructions: As directed fluticasone propionate 50 mcg/actuation spray,suspension intranasal PRN coenzyme Q10 [Co Q-10] PO melatonin 5 mg tablet 5 mg PO BEDTIME PRN Referrals: [facility] [Provider Group] (constipation) Interventions: ED Discharge Assessment Last Done: 04/21/25 21:31 Discharge Date/Time: 04/21/25 21:35 Print Language: Mauritian
[2025-04-21] MEDS: Magnesium Citrate 300 ML SOLUTION PO (21:29)
[2025-04-21] MEDS: oxyCODONE HCl Immed Release 5 MG TABLET PO (21:29)
[2025-04-21 21:30] VITALS: BP 126/72; PULSE 76; RESP 18; TEMP 36.8; O2SAT 96
[2025-04-21 21:31] VITALS: BP 126/72; PULSE 76; RESP 18; TEMP 36.4; O2SAT 98
== END 2025-04-21 21:35 | disposition home or self-care (01) ==
PROVIDERS: Emergency Provider Emergency Medicine
DX: R10.9 Unspecified abdominal pain (principal); F11.20 Opioid dependence, uncomplicated; Z95.2 Presence of prosthetic heart valve; Z79.01 Long term (current) use of anticoagulants; Z79.02 Long term (current) use of antithrombotics/antiplatelets; Z87.891 Personal history of nicotine dependence
CPT/HCPCS: 36415; 80048; 80076; 83690; 85025; 99283; 99284

== ENCOUNTER 2025-04-26 13:23 | Outpatient (AMB) | payer OTHER, SELFPAY ==
--- OUTSIDE RECORDS SUMMARY | 2025-04-26 13:24 | XMS_ITS | Encounter Summary ---
Author Organization [employer] Address [address] [place] [address] [place] [address] Care Team Providers Care Director Of Labor Relations Name Role Phone Mariya Juan MD Primary Care Pro vider Reason for Visit * Reason Onset Date Comments Med Refill 04/23/2025 Encounter Details Date Type Department Care Team ([facility] st Contact Info) Description 04/23/[address] [facility] MEDICINE [address] [place] [address] Mariya Juan MD [address] [place] [address] Social History Tobacco Use Types Packs/Day Years [...] the past 12 months, has t he [employer], gas, oil or water [employer] threatened to shut off services in your [...] Encounter - Mary Ann Gallego LPN - 04/23/2025 12:26 PM EDT Last seen 02/20/25. * Telephone Encounter - Karlo Tesfaye - 04/23/2025 12:22 PM EDT TC from pt requesting medication refill. Medications needing refill : ondansetron ODT (Zofran-ODT) 4 MG disintegrating tablet To be sent to: [id number] - [place] - [id number] [address] [facility] [address] documented in this encounter Plan of Treatment Not on file documented as of this encounter Visit Diagnoses Not on filedocumented in this encounter Additional Health Concerns Assessment Noted Time PHQ-9 Depression Total Score: 12 024 2:22 PM EDT documented as of this encounter Care Teams Director Of Labor Relations Relationship Specialty Start Date End Date Mariya Juan MD [address] [place] [id number] PCP - General Internal Medicine 04/28/23 documented as of this encounter
[2025-04-26 13:29] LABS: Prothrombin Time Whole Bld POC 19.9 sec (11.1-13.5); ~PT, ~INR - Anti Coag Clinic 1.7 (0.9-1.1)
--- NOTE | 2025-04-26 13:37 | MHC.OFFVISCO ---
Intake Intake Visit Reasons: Anticoagulation Allergies hydrocodone (From VICODIN) Allergy (Unknown, Verified 04/21/25 19:48) GI UPSET Nursing Note INR: 1.7 out of therapeutic range 2.5-3.5 Pt states he missed a dose this week Medications and supplements reviewed Patient status: well Medications or supplements: no changes Diet: no changes Denies any signs and symptoms of bleeding or clotting or unusual bruising Bleeding, bruising, clotting discussed Nutritional guidance given: food list reviewed and pt will have a serving of foods that raise the INR Dose: increase to 10mg today and same tomorrow then usual dose of 5mg the next day then return for retest. Pt to start lovenox bid as ordered for INR<2.5 F/U INR Date : 04/29/25?? Patient verbalizing understanding of instructions given. T/C to [facility]. Spoke to Linda. Reported critical INR with dosing plan, lovenox and next retest date. Anti-Coag Initial Assessment Social Hx Patient Tobacco Use Status: Former Tobacco user Tobacco use type: Cigarette alcohol intake: never Alcohol intake frequency: does not drink Coding Level of Care Code Est Patient Level 1 Diagnoses Current use of anticoagulant therapy Z79.01 Results AMB INR Fingerstick AMB INR Fingerstick 1.7 Last Edit by Kayla Alvarez RN on 04/26/25 13:36 interface delay Assessment & Plan Assessment & Plan (1) Current use of anticoagulant therapy: Code(s): Z79.01 - intermediate accountant (current) 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
== END 2025-04-26 16:34 | disposition home or self-care (01) ==
LOC: HO.ACS 13:23
PROVIDERS: Visit Provider Internal Medicine Medical Oncology
DX: Z79.01 Long term (current) use of anticoagulants (principal)

== ENCOUNTER → 2025-04-26 13:23 | Outpatient (BNVA) | payer OTHER, SELFPAY | PROVIDERS: Visit Provider Internal Medicine Medical Oncology | DX: Z95.2 Presence of prosthetic heart valve (principal); Z79.01 Long term (current) use of anticoagulants; Z51.81 Encounter for therapeutic drug level monitoring | CPT/HCPCS: 85610; 99211 ==

== ENCOUNTER 2025-04-29 14:21 | Outpatient (AMB) | payer OTHER, SELFPAY ==
[2025-04-29 14:31] LABS: Prothrombin Time Whole Bld POC 39.7 sec (11.1-13.5); ~PT, ~INR - Anti Coag Clinic 3.3 (0.9-1.1)
--- NOTE | 2025-04-29 14:40 | MHC.OFFVISCO ---
Intake Intake Visit Reasons: Anticoagulation Allergies hydrocodone (From VICODIN) Allergy (Unknown, Verified 04/29/25 14:21) GI UPSET Medication List - Last Reconciled 04/29/25 by Grace Mccloud RN acetaminophen 325 mg PO QID PRN 7 days acetaminophen ER (Tylenol Arthritis Pain) 1,300 mg PO Q8H PRN albuterol sulfate 90 mcg/actuation (ProAir HFA) 2 puffs inhalation Q4-6H PRN atorvastatin 20 mg PO DAILY blood pressure test kit-large As directed buprenorphine-naloxone 8-2 mg (Suboxone) 1 film sublingual BID celecoxib (Celebrex) 200 mg PO DAILY PRN coenzyme Q10 (Co Q-10) PO fluticasone propionate 50 mcg/actuation sprays intranasal PRN hydroxyzine pamoate 25 mg PO TID inhalational spacing device ([facility] spacer) As directed loratadine 10 mg PO DAILY melatonin 5 mg PO BEDTIME PRN omeprazole 20 mg PO DAILY ondansetron 4 mg PO Q8H PRN 4 days ondansetron HCl 4 mg PO Q8H PRN polyethylene glycol 3350 (Miralax) 17 grams PO DAILY sodium chloride 0.65% (Deep Sea Nasal) sprays intranasal warfarin 7.5 mg See Protocol PO 2XW warfarin 10 mg See Protocol PO 5XW Nursing Note INR 3.3 out of therapeutic range Medications and supplements reviewed Patient status: No changes or complaints- previous INR he had missed a dose Medications or supplements: was on lovenox bridge for low INR Diet: good Denies any signs and symptoms of bleeding or clotting or unusual bruising Bleeding, bruising, clotting discussed Nutritional guidance given: Enc weekly greens Dose: 5mg x 3 days / 7.5mg x 3 days F/U INR Date: 1 week ?? Patient verbalizing understanding of instructions given. Anti-Coag Initial Assessment Social Hx Patient Tobacco Use Status: Former Tobacco user Tobacco use type: Cigarette alcohol intake: never Alcohol intake frequency: does not drink Questionnaires HAS-BLED Does the patient had uncontrolled Hypertension?: No Does the patient have renal disease?: No Does the patient have liver disease?: No Does the patient have a history of stroke?: Yes Has the patient had major bleeding or predisposition to bleeding?: Yes Does the patient have labile INRs?: Yes Is the patient over 65 years of age?: No Is the patient on medications that gives them a predisposition to bleeding?: Yes Does the patient use alcohol?: No HAS-BLED Score: 4 CHADSVASC Age: <65 Gender: Male Does the patient have a history of CHF?: No Does the patient have a history of Hypertension?: Yes Does the patient have a history of Stroke/TIA/Thromboembolism?: Yes Does the patient have a history of Vascular Disease (prior MO, PAD or aortic plaque)?: Yes (BRAIN BLEED X 2 ) Does the patient have a history of Diabetes?: No CHADS VACS Score: 4 Miladis Prediction Score Rsk VTE Active Cancer: No Previous VTE, excluding superficial vein thrombosis: No Reduced mobility: No Already known Thrombophilic Condition: No With-in last month Trauma and/or Surgery: No Elderly 70 year or older: No Heart and/or Respiratory Failure: No Acute Myocardial infarction and/or Ischemic Stroke: Yes Acute Infection and/or Rheumatologic Disorder: No Obesity (BMI 30 or greater): Yes Ongoing Hormonal Treatment: No Score: 2 Miladis Score less than 4; Low Risk of VTE Miladis Score 4 or greater; High Risk of VTE Coding Level of Care Code Est Patient Level 1 Diagnoses Current use of anticoagulant therapy Z79.01 Assessment & Plan Assessment & Plan (1) Current use of anticoagulant therapy: Code(s): Z79.01 - watermelon inspector (current) 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
--- OUTSIDE RECORDS SUMMARY | 2025-04-29 15:52 | XMS_ITS | Encounter Summary ---
Author Organization [employer] Address [address] [place] [address] Care Team Providers Care Doll Repairer Name Role Phone Mariya Juan MD Primary Care Pro vider Reason for Visit * Reason Comments Med Refill Encounter Details Date Type Department Care Team ([facility] st Contact Info) Description 04/25/[address] [facility] MEDICINE [address] [place], [place] [phone] Bertha Diaz MD [address] [place], [place] [phone] Constipation, unspecified constipation type Social History Tobacco [...] documented as of this encounter Care Teams Doll Repairer Relationship Specialty Start Date End Date Mariya Juan MD [address] [place] [id number] PCP - General Internal Medicine 04/28/23 documented as of this encounter
== END 2025-04-29 14:45 | disposition home or self-care (01) ==
LOC: HO.ACS 14:21
PROVIDERS: PCP Student in an Organized Health Care Education/Training Program; Visit Provider Internal Medicine Medical Oncology
DX: Z79.01 Long term (current) use of anticoagulants (principal)

== ENCOUNTER → 2025-04-29 14:21 | Outpatient (BNVA) | payer OTHER, SELFPAY | PROVIDERS: PCP Student in an Organized Health Care Education/Training Program; Visit Provider Internal Medicine Medical Oncology | DX: Z95.2 Presence of prosthetic heart valve (principal); Z79.01 Long term (current) use of anticoagulants; Z51.81 Encounter for therapeutic drug level monitoring | CPT/HCPCS: 85610; 99211 ==

== ENCOUNTER 2025-05-06 14:23 | Outpatient (AMB) | payer OTHER, SELFPAY ==
[2025-05-06 14:27] LABS: Prothrombin Time Whole Bld POC 29.6 sec (11.1-13.5); ~PT, ~INR - Anti Coag Clinic 2.5 (0.9-1.1)
--- NOTE | 2025-05-06 14:29 | MHC.OFFVISCO ---
Intake Intake Visit Reasons: Anticoagulation Allergies hydrocodone (From VICODIN) Allergy (Unknown, Verified 05/06/25 14:23) GI UPSET Medication List - Last Reconciled 05/06/25 by Kayla Alvarez RN acetaminophen 325 mg PO QID PRN 7 days acetaminophen ER (Tylenol Arthritis Pain) 1,300 mg PO Q8H PRN albuterol sulfate 90 mcg/actuation (ProAir HFA) 2 puffs inhalation Q4-6H PRN atorvastatin 20 mg PO DAILY blood pressure test kit-large As directed buprenorphine-naloxone 8-2 mg (Suboxone) 1 film sublingual BID celecoxib (Celebrex) 200 mg PO DAILY PRN coenzyme Q10 (Co Q-10) PO fluticasone propionate 50 mcg/actuation sprays intranasal PRN hydroxyzine pamoate 25 mg PO TID inhalational spacing device ([employer] [facility] spacer) As directed loratadine 10 mg PO DAILY melatonin 5 mg PO BEDTIME PRN omeprazole 20 mg PO DAILY ondansetron 4 mg PO Q8H PRN 4 days ondansetron HCl 4 mg PO Q8H PRN polyethylene glycol 3350 (Miralax) 17 grams PO DAILY sodium chloride 0.65% (Deep Sea Nasal) sprays intranasal warfarin 7.5 mg See Protocol PO 2XW warfarin 10 mg See Protocol PO 5XW Nursing Note INR: 2.5 in therapeutic range of 2.5-3.5 Medications and supplements reviewed No changes in health, diet, medications, or supplements, Denies any signs and symptoms of bleeding or bruising or clotting. Bleeding, bruising, clotting discussed Nutritional guidance given to avoid greens X 2 days. Food list reviewed. Pt to have a serving or two of foods that raise the INR such as strawberries and cherries. Dose: 7.5mg X 4 days and 5mg X 3 days (Sun/Tues/Thurs) F/U INR: 05/17/25 Patient verbalizes understanding of instructions given Anti-Coag Initial Assessment Social Hx Patient Tobacco Use Status: Former Tobacco user Tobacco use type: Cigarette alcohol intake: never Alcohol intake frequency: does not drink Coding Level of Care Code Est Patient Level 1 Diagnoses Current use of anticoagulant therapy Z79.01 Assessment & Plan Assessment & Plan (1) Current use of anticoagulant therapy: Code(s): Z79.01 - terminal manager (current) 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
--- OUTSIDE RECORDS SUMMARY | 2025-05-06 14:52 | XMS_ITS | Clinical Summary ---
Author Organization [facility] Address [address] [place] [address] Phone Care Team Providers Care Seismology Technical Officer Name Role Phone Sharon Baum MD Primary Care Provider [phone] Allergies No known active allergies Medications Buprenorphine [...] to 49 Years) Completed 04/28/2023, 02/17/2013 Insurance [facility] ([id number]) [facility] ([id number]) DENIS ERNANDEZ [id number] Care Teams Seismology Technical Officer Relationship Specialty Start Date End Date Sharon Baum MD [address] [place] [id number] PCP - General Internal Medicine 10/20/22
--- OUTSIDE RECORDS SUMMARY | 2025-05-06 14:52 | XMS_ITS | Encounter Summary ---
Author Organization [employer] Address [address] [place] [address] Care Team Providers Care Systems Analyst Engineer Name Role Phone Mariya Juan MD Primary Care Pro vider Reason for Visit * Reason Comments Med Refill Encounter Details Date Type Department Care Team ([facility] st Contact Info) Description 04/25/2025 Refill [facility] MEDICINE [address] [place], [place] [phone] Bertha Diaz MD [address] [place], [place] [phone] Constipation, unspecified constipation type Social History Tobacco [...] documented as of this encounter Care Teams Systems Analyst Engineer Relationship Specialty Start Date End Date Mariya Juan MD [address] [place] [id number] PCP - General Internal Medicine 04/28/23 documented as of this encounter
--- OUTSIDE RECORDS SUMMARY | 2025-05-06 14:52 | XMS_ITS | Data Portability ---
Author Organization [place] - [facility], Allergy Address [address] [place] [address] Care Team Providers Care Rotogravure Press Operator Name Role Phone NAME, KEIRA Primary [...] worsen, may consider tonsillectomy in the future. [email or web address] Not available 04/11/2024 15:22:38 Plan of Treatment Reminders Order Date Submit Date Provider Last Modified By Organization Details Last Modified Time Details Appointments None recorded. Lab None recorded. Referral None recorded. Procedures None recorded. Surgeries None recorded. Imaging None recorded. Medication Orders Flonase Allergy Relief 50 mcg/actua tion nasal spray,darrin pension 024 024 [id number], [address] [place], [place], [phone], 15:20:32 Patient TargetsNo targets recorded. Patient InstructionsNo instructions recorded. Reason for Referral None Reported. 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 Procedures Surgical History Date Name Laterality Status Provider Name and Address Organization Details Recorded Time Heart Surgery completed Daphnie Welsh [place] - [facility] [place] 04/11/2024 15:01:33 Imaging Results None recorded. Procedure [...] Updated DateTime 04/11/2024 190.5 cm 30 kg/m2 968798.17 g Daphnie Welsh [place] - [facility] [place] 04/11/2024 14:58:50 Date Recorded Body height Body mass index (BMI) Body weight Provider Name and Address Organization Details Last Updated DateTime 08/30/2024 190.5 cm 30 kg/m2 537221.17 g Nelli Fishman [place] - [facility] [place] 08/30/2024 10:37:44 Social History None recorded. Functional Status None recorded. Mental Status None recorded. Family History Nothing Reported. Medical History No medical history recorded. Past Encounters Encounter ID Performer Location Encounter Start Date Encounter Closed Date Diagnosis/Indication Diagnosis SNOMED-CT Code Diagnosis ICD10 Code Diagnosis Note [id number] CHANI KIM PA-C [facility] [address] [place] [address] 04/11/2024 14:35:25 04/11/2024 15:13:40 Amygdalolith 1306162 J35.8 Allergic rhinitis 554518 04 J30.89 [id number] EDDIE MONTES MD [facility] of [address] [address] 08/30/2024 10:28:36 08/30/2024 10:58:17 Amygdalolith 3358086 J35.8 Discourage d surgery. Recommend observatio n. [...] Roberts Member ID Guarantor Name 11/15/2024 1 [facility] - DOS ON OR AFTER 2023 - [facility] (MEDICARE REPLACEMENT/AD VANTAGE - HMO) Ludin Mendes [id number] Ludin Mendes 08/30/2024 1 [facility] - DOS ON OR AFTER 2023 - MEDICARE ADVANTAGE [place] (MEDICARE REPLACEMENT/AD VANTAGE - PPO) Ludin Mendes [id number] Ludin Mendes Notes Date Note Type Note [...] did not continue it. CHANI KIM PA-C [address] [place] [address], [phone], [facility] - [facility] 04/11/2024 15:25:28 08/30/2024 text/html 38-year-old male presents for evaluation of tonsil stones. Bleeding has resolved. He has not been using flonase but finds mouth rinses helpful. He is less bothered than before. EDDIE MONTES MD [address] [place] [address], [place], [address], [facility] - [facility] 08/30/2024 11:00:13
== END 2025-05-06 14:34 | disposition home or self-care (01) ==
LOC: HO.ACS 14:23
PROVIDERS: PCP Student in an Organized Health Care Education/Training Program; Visit Provider Internal Medicine Medical Oncology
DX: Z79.01 Long term (current) use of anticoagulants (principal)

== ENCOUNTER → 2025-05-06 14:23 | Outpatient (BNVA) | payer OTHER, SELFPAY | PROVIDERS: PCP Student in an Organized Health Care Education/Training Program; Visit Provider Internal Medicine Medical Oncology | DX: Z79.01 Long term (current) use of anticoagulants (principal) | CPT/HCPCS: 85610; 99211 ==

== ENCOUNTER 2025-05-17 14:57 | Outpatient (AMB) | payer OTHER, SELFPAY ==
--- OUTSIDE RECORDS SUMMARY | 2025-05-17 15:01 | XMS_ITS | Clinical Summary ---
Author Organization [facility] Address [address] [place] [address] Phone Care Team Providers Care Nurse Monitoring Name Role Phone Sharon Baum MD Primary Care Provider [phone] Allergies No known active allergies Medications Buprenorphine [...] Date Last Done Comments Influenza Vaccine (#1) 2025 , 07/23/2019, 11/02/2018, Additional history exists Hepatitis B Vaccine Completed 12/10/1998, 08/14/1998, 1998 Pneumococcal Vaccine: Peds ( 0 to 5 Years) and At-Risk Patients (6 to 49 Years) Completed 04/28/2023, 02/17/[address] [place] [address] ([id number]) [facility] ([id number]) DENIS ERNANDEZ [address] Care Teams Nurse Monitoring Relationship Specialty Start Date End Date Sharon Baum MD [address] [place] [address] PCP - General Internal Medicine 10/20/22
--- OUTSIDE RECORDS SUMMARY | 2025-05-17 15:01 | XMS_ITS | Encounter Summary ---
Author Organization [employer] Address [address] [facility] [address]t [place] [address] Care Team Providers Care Eyeglass Maker Name Role Phone Mariya Juan MD Primary Care Pro vider Reason for Visit * Reason Comments Med Refill Encounter Details Date Type Department Care Team ([facility] st Contact Info) Description 04/25/2025 Refill [facility] MEDICINE [address] [place], [place] [phone] Bertha Diaz MD [address] [place], [place] [phone] Constipation, unspecified constipation type Social History Tobacco [...] documented as of this encounter Care Teams Eyeglass Maker Relationship Specialty Start Date End Date Mariya Juan MD [address] [place] [address] PCP - General Internal Medicine 04/28/23 documented as of this encounter
--- OUTSIDE RECORDS SUMMARY | 2025-05-17 15:01 | XMS_ITS | Data Portability ---
Author Organization [place] - [facility], Allergy Address [address] [place] [address] Care Team Providers Care Sintering Plant Supervisor Name Role Phone NAME, KEIRA Primary Care Provider [phone] Assessment Encounter Date Assessment Date Assessment LastModified [...] worsen, may consider tonsillectomy in the future. Not available 04/11/2024 15:22:38 Plan of Treatment Reminders Order Date Submit Date Provider Last Modified By Organization Details Last Modified Time Details Appointments None recorded. Lab None recorded. Referral None recorded. Procedures None recorded. Surgeries None recorded. Imaging None recorded. Medication Orders Flonase Allergy Relief 50 mcg/actua tion nasal spray,darrin pension 024 024 [facility][id number], [address] [place], [place], [id number], 15:20:32 Patient TargetsNo targets recorded. Patient InstructionsNo instructions recorded. Reason for Referral None Reported. Problems Name Problem SNOMED Code Status Onset Date Resolution Date Notes Provider Name and Address Organization Details Recorded Time Amygdalolith 1440610 Active 2023 CHANI KIM PA-C [address], [address], [place] - [facility] [place] 15:18:54 Allergic rhinitis 90149930 Active 2023 CHANI KIM PA-C [address] [place] [address], [address], [place] - [facility] [place] 15:20:36 Problem Notes None recorded. Procedures Surgical History Date Name Laterality Status Provider Name and Address Organization Details Recorded Time Heart Surgery completed Daphnie Welsh [place] - [facility] [place] 04/11/2024 15:01:33 Imaging Results None recorded. Procedure [...] Updated DateTime 04/11/2024 190.5 cm 30 kg/m2 167193.17 g Daphnie Welsh [place] - [facility] [place] 04/11/2024 14:58:50 Date Recorded Body height Body mass index (BMI) Body weight Provider Name and Address Organization Details Last Updated DateTime 08/30/2024 190.5 cm 30 kg/m2 698726.17 g Nelli Fishman [place] - [facility] [place] 08/30/2024 10:37:44 Social History None recorded. Functional Status None recorded. Mental Status None recorded. Family History Nothing Reported. Medical History No medical history recorded. Past Encounters Encounter ID Performer Location Encounter Start Date Encounter Closed Date Diagnosis/Indication Diagnosis SNOMED-CT Code Diagnosis ICD10 Code Diagnosis Note [id number] CHANI KIM PA-C [facility] [address] [place] [address] 04/11/2024 14:35:25 04/11/2024 15:13:40 Amygdalolith 0717901 J35.8 Allergic rhinitis 429269 04 J30.89 [id number] EDDIE MONTES MD [facility] of [address] [address] 08/30/2024 10:28:36 08/30/2024 10:58:17 Amygdalolith 9736017 J35.8 Discourage d surgery. Recommend observatio n. [...] Roberts Member ID Guarantor Name 11/15/2024 1 [facility] - DOS ON OR AFTER 2023 - [facility] (MEDICARE REPLACEMENT/AD VANTAGE - HMO) Ludin Mendes [id number] Ludin Mendes 08/30/2024 1 [facility] - DOS ON OR AFTER 2023 - MEDICARE [place]AGE [place] (MEDICARE REPLACEMENT/AD VANTAGE - PPO) Ludin Mendes [id number] Ludin Mendes Notes Date Note Type Note [...] did not continue it. CHANI KIM PA-C [address] [place] [address], [address], [facility] - [facility] 04/11/2024 15:25:28 08/30/2024 text/html 38-year-old male presents for evaluation of tonsil stones. Bleeding has resolved. He has not been using flonase but finds mouth rinses helpful. He is less bothered than before. EDDIE MONTES MD [address] [place] [address], [place], [address], [facility] - [facility] 08/30/2024 11:00:13
--- NOTE | 2025-05-17 15:09 | MHC.OFFVISCO ---
Intake Intake Visit Reasons: Anticoagulation Allergies hydrocodone (From VICODIN) Allergy (Unknown, Verified 05/17/25 14:58) GI UPSET Medication List - Last Reconciled 05/17/25 by Kayla Alvarez RN acetaminophen 325 mg PO QID PRN 7 days acetaminophen ER (Tylenol Arthritis Pain) 1,300 mg PO Q8H PRN albuterol sulfate 90 mcg/actuation (ProAir HFA) 2 puffs inhalation Q4-6H PRN atorvastatin 20 mg PO DAILY blood pressure test kit-large As directed buprenorphine-naloxone 8-2 mg (Suboxone) 1 film sublingual BID celecoxib (Celebrex) 200 mg PO DAILY PRN coenzyme Q10 (Co Q-10) PO fluticasone propionate 50 mcg/actuation sprays intranasal PRN hydroxyzine pamoate 25 mg PO TID inhalational spacing device (Effektif Pascale [facility] spacer) As directed loratadine 10 mg PO DAILY melatonin 5 mg PO BEDTIME PRN omeprazole 20 mg PO DAILY ondansetron 4 mg PO Q8H PRN 4 days ondansetron HCl 4 mg PO Q8H PRN polyethylene glycol 3350 (Miralax) 17 grams PO DAILY sodium chloride 0.65% (Deep Sea Nasal) sprays intranasal warfarin 7.5 mg See Protocol PO 2XW warfarin 10 mg See Protocol PO 5XW Nursing Note INR: 3.5 in therapeutic range of 2.5-3.5 Medications and supplements reviewed No changes in health, diet, medications, or supplements, Denies any signs and symptoms of bleeding or bruising or clotting. Bleeding, bruising, clotting discussed Nutritional guidance given to have a serving of greens today Dose: 7.5mg X 4 days and 5mg X 3 days (Sun/Tues/Thurs) F/U INR: 2 weeks Patient verbalizes understanding of instructions given Anti-Coag Initial Assessment Social Hx Patient Tobacco Use Status: Former Tobacco user Tobacco use type: Cigarette alcohol intake: never Alcohol intake frequency: does not drink Coding Level of Care Code Est Patient Level 1 Diagnoses Current use of anticoagulant therapy Z79.01 Results AMB INR Fingerstick AMB INR Fingerstick 3.5 Last Edit by Kayla Alvarez RN on 05/17/25 15:05 interface delay Assessment & Plan Assessment & Plan (1) Current use of anticoagulant therapy: Code(s): Z79.01 - correction (current) 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
[2025-05-17 15:43] LABS: Prothrombin Time Whole Bld POC 41.8 sec (11.1-13.5); ~PT, ~INR - Anti Coag Clinic 3.5 (0.9-1.1)
== END 2025-05-17 15:13 | disposition home or self-care (01) ==
LOC: HO.ACS 14:57
PROVIDERS: PCP Student in an Organized Health Care Education/Training Program; Visit Provider Internal Medicine Medical Oncology
DX: Z79.01 Long term (current) use of anticoagulants (principal)

== ENCOUNTER → 2025-05-17 14:57 | Outpatient (BNVA) | payer OTHER, SELFPAY | PROVIDERS: PCP Student in an Organized Health Care Education/Training Program; Visit Provider Internal Medicine Medical Oncology | DX: Z95.2 Presence of prosthetic heart valve (principal); Z79.01 Long term (current) use of anticoagulants; Z51.81 Encounter for therapeutic drug level monitoring | CPT/HCPCS: 85610; 99211 ==

== ENCOUNTER 2025-05-31 14:21 | Outpatient (AMB) | payer OTHER, SELFPAY ==
--- OUTSIDE RECORDS SUMMARY | 2025-05-31 14:22 | XMS_ITS | Clinical Summary ---
Author Organization [facility] Address [address] [place] [address] Phone Care Team Providers Care Knuckler Name Role Phone Sharon Baum MD Primary Care Provider [phone] Allergies No known active allergies Medications Buprenorphine [...] to 49 Years) Completed 04/28/2023, 02/17/[address] [place] [address] ([id number]) [facility] ([id number]) DENIS ERNANDEZ [address] Care Teams Knuckler Relationship Specialty Start Date End Date Sharon Baum MD [address] [place] [address] PCP - General Internal Medicine 10/20/22
--- OUTSIDE RECORDS SUMMARY | 2025-05-31 14:23 | XMS_ITS | Data Portability ---
Author Organization [place] - [facility], Allergy Address [address] [place] [address] Care Team Providers Care Signal Tower Operator Name Role Phone NAME, KEIRA Primary [...] worsen, may consider tonsillectomy in the future. [email or web address] Not available 04/11/2024 15:22:38 Plan of Treatment Reminders Order Date Submit Date Provider Last Modified By Organization Details Last Modified Time Details Appointments None recorded. Lab None recorded. Referral None recorded. Procedures None recorded. Surgeries None recorded. Imaging None recorded. Medication Orders Flonase Allergy Relief 50 mcg/actua tion nasal spray,darrin pension 024 024 [facility] #[id number], [address] [place], [place], [phone], 15:20:32 Patient TargetsNo targets recorded. Patient InstructionsNo instructions recorded. Reason for Referral None Reported. Problems Name Problem SNOMED Code Status Onset Date Resolution Date Notes Provider Name and Address Organization Details Recorded Time Amygdalolith 7364792 Active 2023 CHANI KIM PA-C [address], [address], [place] - [facility] [place] 15:18:54 Allergic rhinitis 47281369 Active 2023 CHANI KIM PA-C [address] [place] [address], [address], [place] - [facility] [place] 15:20:36 Problem Notes None recorded. Procedures Surgical History Date Name Laterality Status Provider Name and Address Organization Details Recorded Time Heart Surgery completed Daphnie Welsh [place] - [facility] 04/11/2024 15:01:33 Imaging Results None recorded. Procedure [...] Updated DateTime 04/11/2024 190.5 cm 30 kg/m2 302525.17 g Daphnie Welsh [place] - [facility] 04/11/2024 14:58:50 Date Recorded Body height Body mass index (BMI) Body weight Provider Name and Address Organization Details Last Updated DateTime 08/30/2024 190.5 cm 30 kg/m2 816486.17 g Nelli Fishman [place] - [facility] 08/30/2024 10:37:44 Social History None recorded. Functional Status None recorded. Mental Status None recorded. Family History Nothing Reported. Medical History No medical history recorded. Past Encounters Encounter ID Performer Location Encounter Start Date Encounter Closed Date Diagnosis/Indication Diagnosis SNOMED-CT Code Diagnosis ICD10 Code Diagnosis Note [id number] CHANI KIM PA-C [facility] [address] [place] [address] 04/11/2024 14:35:25 04/11/2024 15:13:40 Amygdalolith 5631882 J35.8 Allergic rhinitis 157261 04 J30.89 [id number] EDDIE MONTES MD [facility] of [address] [address] 08/30/2024 10:28:36 08/30/2024 10:58:17 Amygdalolith 9702708 J35.8 Discourage d surgery. Recommend observatio n. [...] Roberts Member ID Guarantor Name 11/15/2024 1 [facility] - DOS ON OR AFTER 2023 - [facility] (MEDICARE REPLACEMENT/AD VANTAGE - HMO) Ludin Mendes [id number] Ludin Mendes 08/30/2024 1 [facility] - DOS ON OR AFTER 2023 - MEDICARE [place]AGE [place] (MEDICARE [place]PL[place]EMENT/AD VANTAGE - PPO) Ludin Mendes [id number] Ludin Mendes Notes Date Note Type Note Provider Name and Address Organization Details Recorded Time 04/11/2024 text/html ROS as noted in the HPI 38-year-old male presents for evaluation of tonsil [...] not continue it. CHANI KIM PA-C [address], [address], [facility] - [facility] 04/11/2024 15:25:28 08/30/2024 text/html ROS as noted in the HPI 38-year-old male presents for evaluation of tonsil stones. Bleeding has resolved. He has not been using flonase but finds mouth rinses helpful. He is less bothered than before. EDDIE MONTES MD [address] [place] [address], [address], [facility] - [facility] 08/30/2024 11:00:13
[2025-05-31 14:26] LABS: Prothrombin Time Whole Bld POC 55.0 sec (11.1-13.5); ~PT, ~INR - Anti Coag Clinic 4.6 (0.9-1.1)
--- NOTE | 2025-05-31 14:42 | MHC.OFFVISCO ---
Intake Intake Visit Reasons: Anticoagulation Allergies hydrocodone (From VICODIN) Allergy (Unknown, Verified 05/31/25 14:21) GI UPSET Medication List - Last Reconciled 05/31/25 by Kayla Alvarez RN acetaminophen 325 mg PO QID PRN 7 days acetaminophen ER (Tylenol Arthritis Pain) 1,300 mg PO Q8H PRN albuterol sulfate 90 mcg/actuation (ProAir HFA) 2 puffs inhalation Q4-6H PRN atorvastatin 20 mg PO DAILY blood pressure test kit-large As directed buprenorphine-naloxone 8-2 mg (Suboxone) 1 film sublingual BID celecoxib (Celebrex) 200 mg PO DAILY PRN coenzyme Q10 (Co Q-10) PO fluticasone propionate 50 mcg/actuation sprays intranasal PRN hydroxyzine pamoate 25 mg PO TID inhalational spacing device (Dasdak Pascale [facility] spacer) As directed loratadine 10 mg PO DAILY melatonin 5 mg PO BEDTIME PRN omeprazole 20 mg PO DAILY ondansetron 4 mg PO Q8H PRN 4 days ondansetron HCl 4 mg PO Q8H PRN polyethylene glycol 3350 (Miralax) 17 grams PO DAILY sodium chloride 0.65% (Deep Sea Nasal) sprays intranasal warfarin 7.5 mg See Protocol PO 2XW warfarin 10 mg See Protocol PO 5XW Nursing Note INR: 4.6 out of therapeutic range 2.5-3.5 Medications and supplements reviewed No changes in health, diet, medications, or supplements, Denies any signs and symptoms of bleeding or bruising or clotting. Bleeding, bruising, clotting discussed Nutritional guidance given to have a serving of greens today Dose: decrease today's dose to 3.75mg (7.5mg) then resume usual dose of 7.5mg X 4 days and 5mg X 3 days (//) F/U INR: 10 days Patient verbalizes understanding of instructions given Anti-Coag Initial Assessment Social Hx Patient Tobacco Use Status: Former Tobacco user Tobacco use type: Cigarette alcohol intake: never Alcohol intake frequency: does not drink Coding Level of Care Code Est Patient Level 1 Diagnoses Current use of anticoagulant therapy Z79.01 Results AMB INR Fingerstick AMB INR Fingerstick 4.6 Last Edit by Kayla Alvarez RN on 05/31/25 14:26 interface delay Assessment & Plan Assessment & Plan (1) Current use of anticoagulant therapy: Code(s): Z79.01 - ferry terminal supervisor (current) 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
== END 2025-05-31 14:48 | disposition home or self-care (01) ==
LOC: HO.ACS 14:21
PROVIDERS: PCP Student in an Organized Health Care Education/Training Program; Visit Provider Internal Medicine Medical Oncology
DX: Z79.01 Long term (current) use of anticoagulants (principal)

== ENCOUNTER → 2025-05-31 14:21 | Outpatient (BNVA) | payer OTHER, SELFPAY | PROVIDERS: PCP Student in an Organized Health Care Education/Training Program; Visit Provider Internal Medicine Medical Oncology | DX: Z95.2 Presence of prosthetic heart valve (principal); Z79.01 Long term (current) use of anticoagulants; Z51.81 Encounter for therapeutic drug level monitoring | CPT/HCPCS: 85610; 99211 ==

== ENCOUNTER → 2025-06-10 09:42 | Outpatient (BNVA) | payer OTHER, SELFPAY | PROVIDERS: PCP Student in an Organized Health Care Education/Training Program; Visit Provider Internal Medicine Medical Oncology | DX: Z79.01 Long term (current) use of anticoagulants (principal) | CPT/HCPCS: 85610; 99211 ==

== ENCOUNTER 2025-06-10 14:45 | Outpatient (AMB) | payer OTHER, SELFPAY ==
--- OUTSIDE RECORDS SUMMARY | 2025-06-10 10:14 | XMS_ITS | Encounter Summary ---
Author Organization [employer] Address [address] [facility] 7t [place] [address] Care Team Providers Care Occupancy Specialist Name Role Phone Mariya Juan MD Primary Care Pro vider Reason for Visit * Reason Comments Med Refill Encounter Details Date Type Department Care Team ([facility] st Contact Info) Description 04/25/2025 Refill [facility] MEDICINE [address] [place], [place] [phone] Bertha Diaz MD [address] [place], [place] [phone] Constipation, unspecified constipation type Social History Tobacco [...] documented as of this encounter Care Teams Occupancy Specialist Relationship Specialty Start Date End Date Mariya Juan MD [address] [place] [address] PCP - General Internal Medicine 04/28/23 documented as of this encounter
--- OUTSIDE RECORDS SUMMARY | 2025-06-10 10:14 | XMS_ITS | Clinical Summary ---
Author Organization [facility] Address [address] [place] [address] Phone Care Team Providers Care Refinery Operator Reforming Unit Name Role Phone Sharon Baum MD Primary Care Provider [phone] Allergies No known active allergies Medications Buprenorphine [...] to 49 Years) Completed 04/28/2023, 02/17/[address] [place] [address] ([id number]) [facility] ([id number]) DENIS ERNANDEZ [phone] Care Teams Refinery Operator Reforming Unit Relationship Specialty Start Date End Date Sharon Baum MD [address] [place] [address] PCP - General Internal Medicine 10/20/22
[2025-06-10 15:01] LABS: Prothrombin Time Whole Bld POC 27.4 sec (11.1-13.5); ~PT, ~INR - Anti Coag Clinic 2.3 (0.9-1.1)
--- NOTE | 2025-06-10 15:13 | MHC.OFFVISCO ---
Intake Intake Visit Reasons: Anticoagulation Allergies hydrocodone (From VICODIN) Allergy (Unknown, Verified 06/10/25 14:55) GI UPSET Medication List - Last Reconciled 06/10/25 by Grace Mccloud RN acetaminophen 325 mg PO QID PRN 7 days acetaminophen ER (Tylenol Arthritis Pain) 1,300 mg PO Q8H PRN albuterol sulfate 90 mcg/actuation (ProAir HFA) 2 puffs inhalation Q4-6H PRN atorvastatin 20 mg PO DAILY blood pressure test kit-large As directed buprenorphine-naloxone 8-2 mg (Suboxone) 1 film sublingual BID celecoxib (Celebrex) 200 mg PO DAILY PRN coenzyme Q10 (Co Q-10) PO fluticasone propionate 50 mcg/actuation sprays intranasal PRN hydroxyzine pamoate 25 mg PO TID inhalational spacing device ([facility] Pascale [facility] spacer) As directed loratadine 10 mg PO DAILY melatonin 5 mg PO BEDTIME PRN omeprazole 20 mg PO DAILY ondansetron 4 mg PO Q8H PRN 4 days ondansetron HCl 4 mg PO Q8H PRN polyethylene glycol 3350 (Miralax) 17 grams PO DAILY sodium chloride 0.65% (Deep Sea Nasal) sprays intranasal warfarin 7.5 mg See Protocol PO 2XW warfarin 10 mg See Protocol PO 5XW Nursing Note INR 2.3 out of therapeutic range Medications and supplements reviewed Patient status: S/P ELEVATED INR 4.6- [place] HAVE BEEN DIET RELATED Medications or supplements: NO CHANGES Diet: GOOD Denies any signs and symptoms of bleeding or clotting or unusual bruising Bleeding, bruising, clotting discussed Nutritional guidance given: WAIT 2 DAYS TO EAT GREENS THEN EAT THEM 2 DAYS/ WEEK Dose: 5MG X 3 DAYS/ 7.5MG X 4 DAYS F/U INR Date: 1 WEEK ?? Patient verbalizing understanding of instructions given. Anti-Coag Initial Assessment Social Hx Patient Tobacco Use Status: Former Tobacco user Tobacco use type: Cigarette alcohol intake: never Alcohol intake frequency: does not drink Coding Level of Care Code Est Patient Level 1 Diagnoses Current use of anticoagulant therapy Z79.01 Assessment & Plan Assessment & Plan (1) Current use of anticoagulant therapy: Code(s): Z79.01 - long term care pharmacist (current) 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
== END 2025-06-10 15:15 | disposition home or self-care (01) ==
PROVIDERS: PCP Student in an Organized Health Care Education/Training Program; Visit Provider Internal Medicine Medical Oncology
DX: Z79.01 Long term (current) use of anticoagulants (principal)

== ENCOUNTER 2025-07-03 11:23 | Outpatient (AMB) | payer OTHER, SELFPAY ==
--- NOTE | 2025-07-03 11:33 | MHC.OFFVISCO ---
Intake Intake Visit Reasons: Anticoagulation Allergies hydrocodone (From VICODIN) Allergy (Unknown, Verified 07/03/25 11:30) GI UPSET Medication List - Last Reconciled 07/03/25 by Lindsay Couch RN acetaminophen 325 mg PO QID PRN 7 days acetaminophen ER (Tylenol Arthritis Pain) 1,300 mg PO Q8H PRN albuterol sulfate 90 mcg/actuation (ProAir HFA) 2 puffs inhalation Q4-6H PRN atorvastatin 20 mg PO DAILY blood pressure test kit-large As directed buprenorphine-naloxone 8-2 mg (Suboxone) 1 film sublingual BID celecoxib (Celebrex) 200 mg PO DAILY PRN coenzyme Q10 (Co Q-10) PO fluticasone propionate 50 mcg/actuation sprays intranasal PRN hydroxyzine pamoate 25 mg PO TID inhalational spacing device (DataXu Pascale [facility] spacer) As directed loratadine 10 mg PO DAILY melatonin 5 mg PO BEDTIME PRN omeprazole 20 mg PO DAILY ondansetron 4 mg PO Q8H PRN 4 days ondansetron HCl 4 mg PO Q8H PRN polyethylene glycol 3350 (Miralax) 17 grams PO DAILY sodium chloride 0.65% (Deep Sea Nasal) sprays intranasal warfarin 7.5 mg See Protocol PO 2XW warfarin 10 mg See Protocol PO 5XW Nursing Note INR: 3.4- in therapeutic range of 2.5-3.5 Medications and supplements reviewed- no changes No changes in health, diet, medications, or supplements, Denies any signs and symptoms of bleeding or bruising or clotting. Bleeding, bruising, clotting discussed Nutritional guidance given Dose: 5mg x 3, 7.5mg x 4 F/U INR: 2 weeks- pt req 07/18/25 Patient verbalizes understanding of instructions given Anti-Coag Initial Assessment Social Hx Patient Tobacco Use Status: Former Tobacco user Tobacco use type: Cigarette alcohol intake: never Alcohol intake frequency: does not drink Coding Level of Care Code Est Patient Level 1 Diagnoses Current use of anticoagulant therapy Z79.01 Results AMB INR Fingerstick AMB INR Fingerstick 3.4 Last Edit by Lindsay Couch RN on 07/03/25 11:35 AMB INR Fingerstick AMB INR Fingerstick 3.4 Last Edit by Lindsay Couch RN on 07/03/25 11:36 interface delay Assessment & Plan Assessment & Plan (1) Current use of anticoagulant therapy: Code(s): Z79.01 - longterm (current) 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
--- OUTSIDE RECORDS SUMMARY | 2025-07-03 12:18 | XMS_ITS | Encounter Summary ---
Author Organization [email or web address] Address [address] [place] [address] [place] [address] Care Team Providers Care Engineering Secretary Name Role Phone Mariya Juan MD Primary Care Pro vider Reason for Visit * Reason Onset Date Comments Med Refill 01/08/2025 Encounter Details Date Type Department Care Team ([facility] st Contact Info) Description 01/08/2025 Telephone [facility] MEDICINE [address] [place] [address] Mariya Juan MD [address] [place] [address] Med Refill Social History Tobacco Use Types [...] solution prefilled syringe To be sent to: [id number] [address] [place] [address] AT [facility] documented in this encounter Plan of Treatment Upcoming Encounters Date Type Department Care Team ([facility] st Contact Info) Description 08/09/2025 10:45 AM EDT Office Visit [facility] MEDICINE [address] [place] [phone] Mariya Juan MD [address] [place] [address] documented as of this encounter Visit Diagnoses Not on filedocumented in this encounter Additional Health Concerns Assessment Noted Time PHQ-9 Depression Total Score: 12 024 2:22 PM EDT documented as of this encounter Care Teams Engineering Secretary Relationship Specialty Start Date End Date Mariya Juan MD [address] [place] [phone] PCP - General Internal Medicine 04/28/23 documented as of this encounter
--- OUTSIDE RECORDS SUMMARY | 2025-07-03 12:18 | XMS_ITS | Encounter Summary ---
Author Organization [employer] Address [address] [place] [address] 7 [place] [address] Care Team Providers Care Respiratory Clinician Name Role Phone Mariya Juan MD Primary Care Pro vider Encounter Details Date Type Department Care Team ([facility] st Contact Info) Description 05/31/2025 Results Follow-Up [facility] MEDICINE [address] [place] [address] Mariya Juan MD [address] [place] [address] ~PT, ~INR - ANTI COAG CLINIC, PROTHROMBIN TIME WHOLE BLD POC Social History Tobacco Use Types Packs/Day Years [...] the past 12 months, has t he [employer], gas, oil or water [employer] threatened to shut off services in your [...] as of this encounter Miscellaneous Notes * Result Encounter Note - Mariya Cho MD - 05/31/2025 2:54 PM EDT Pt f at coumadin clinic -Pt range goal 2.5-3.5. documented in this encounter Plan of Treatment Upcoming Encounters Date Type Department Care Team (Late st Contact Info) Description 08/09/2025 10:45 AM EDT Office Visit [facility] MEDICINE [address] [place] [phone] Mariya Juan MD [address] [place] [address] documented as of this encounter Visit Diagnoses Not on filedocumented in this encounter Additional Health Concerns Assessment Noted Time PHQ-9 Depression Total Score: 12 024 2:22 PM EDT documented as of this encounter Care Teams Respiratory Clinician Relationship Specialty Start Date End Date Mariya Juan MD [address] [place] [phone] PCP - General Internal Medicine 04/28/23 documented as of this encounter
--- OUTSIDE RECORDS SUMMARY | 2025-07-03 12:18 | XMS_ITS | Clinical Summary ---
Author Organization [employer] Address [address] [facility] 7t [place] [address] Care Team Providers Care Business Analytics Specialist Name Role Phone Mariya Juan MD [...] replace cap. 16 g 12 024 Active sodium chloride ([place]) 0.65 % nasal spray Administer 1 spray into each nostril if needed for congestion. 15 mL 2 024 2024 Active atorvastatin (Lipitor) 20 MG tabletIndications :Mixed hyperlipidemia Take 1 tablet (20 mg) by mouth Once per day. 30 tablet 3 024 2024 Active warfarin (Coumadin) 7.5 MG tabletIndications :Mechanical heart valve present TAKE 1 TABLET BY MOUTH ON 6 DAYS A WEEK. TAKE 5MG ON 1 DAY OF THE WEEK. 60 tablet 2 025 Active amoxicillin (Amoxil) 500 MG capsuleIndication [...] FOR ANXIETY 90 capsule 1 025 Active warfarin (Coumadin) 5 MG tabletIndications :Mechanical heart valve present TAKE 2 TABLETS BY MOUTH EVERY TUESDAY, TUESDAY, TUESDAY, TUESDAY, AND TUESDAY. MAY BE ADJUSTED BY COUMADIN CLINIC IN THE FUTURE. 60 tablet 3 025 Active albuterol 108 (90 Base) MCG/ACT inhalerIndication s:Mild intermittent asthma without complication Inhale 2 puffs every 4 (four) hours if needed for wheezing or shortness of breath. 18 g 3 025 Active ondansetron ODT (Zofran-ODT) 4 MG disintegrating tablet DISSOLVE 2 TABLETS ON TOP OF THE TONGUE THEN SWALLOW EVERY 12 HOURS 60 tablet 025 Active polyethylene glycol, PEG, 3350 (MiraLax) 17 GM/SCOOP powderIndications :Constipation, unspecified constipation type MIX AND DRINK 17 GM BY MOUTH EVERY DAY IF NEEDED FOR CONSTIPATION 510 g 2 025 Active albuterol 108 (90 Base) MCG/ACT inhalerIndication s:Mild intermittent asthma without complication Inhale 2 puffs every 4 (four) hours if needed for wheezing or shortness of breath. 18 g 3 12/10/ 025 2024 Discontinued(R eorder (will not trigger notification to Pharmacy)) polyethylene glycol, PEG, 3350 (MiraLax) 17 GM/SCOOP [...] weakness 04/28/2023 Overview (04/28/2023): Was seen at [facility] on 08/17/22 with noted nausea, diaphoresis in exam room, discomfort, profound fatigue, referred to [facility] ED now. Went to [facility] ED on 08/18/22 and was admitted for infection and started antibiotics. Blood cultures on 08/18/22 and 08/20/22 grew MSSA. 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 Plan was to transfer [facility]. Transferred to [facility] [...] bleed improving Has PT in home through [facility]. 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 Went to [facility] ED on 08/18/22 and was admitted for infection and started antibiotics. Blood cultures on 08/18/22 and 08/20/22 grew MSSA. 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 Plan was to transfer [facility]. Transferred to [facility] – [...] endocarditis 11/03/2022 Overview (04/28/2023): Was seen at [facility] on 08/17/22 with noted nausea, diaphoresis in exam room, discomfort, profound fatigue, referred to [facility] ED now. Went to [facility] on 08/18/22 and was admitted for infection and started antibiotics. Blood cultures on 08/18/22 and 08/20/22 grew MSSA. 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 Plan was to transfer [facility]. Transferred to [facility] – [...] Encounters Date Type Department Care Team Description 06/10/2025 Results Follow-Up [facility] MEDICINE [address] [place] [phone] Mariya Juan MD ~PT, ~INR - ANTI COAG CLINIC, PROTHROMBIN TIME WHOLE BLD POC 06/10/2025 Orders Only GENERIC EXTERNAL DATA DEPARTMENT Provider, Generic External Data 06/10/2025 Refill [facility] MED[facility]INE [address] [place] [address] Mariya Juan MD Mild intermittent asthma without complication; Constipation, unspecified constipation type 05/31/2025 Results Follow-Up [facility] [address] [place] [address] Mariya Juan MD ~PT, ~INR - ANTI COAG CLINIC, PROTHROMBIN TIME WHOLE BLD POC 05/31/2025 Orders Only GENERIC EXTERNAL DATA DEPARTMENT Provider, Generic External Data 05/17/2025 Orders Only GENERIC EXTERNAL DATA DEPARTMENT Provider, Generic External Data 05/08/2025 Refill [facility] [address] [place] [address] Mariya Juan MD Mechanical heart valve present 05/06/2025 Results Follow-Up [facility] [address] [place] [address] Mariya Juan MD ~PT, ~INR - ANTI COAG CLINIC, PROTHROMBIN TIME WHOLE BLD POC 05/06/2025 Orders Only GENERIC EXTERNAL DATA DEPARTMENT Provider, Generic External Data 05/01/[address] [address] Mariya Juan MD recall 04/29/2025 Results Follow-Up [address] [address] Mariya Juan MD ~PT, ~INR - ANTI COAG CLINIC, PROTHROMBIN TIME WHOLE BLD POC 04/29/[address] [address] Mariya Juan MD Appointment Request 04/29/2025 Orders Only GENERIC EXTERNAL DATA DEPARTMENT Provider, Generic External Data 04/27/2025 Telephone [facility] [address] [place] [phone] Mariya Juan MD APPT 04/26/2025 Telephone [facility] [address] [place] [phone] Mariya Juan MD critical results 04/26/2025 Orders Only GENERIC EXTERNAL DATA DEPARTMENT Provider, Generic External Data 04/25/[address] [phone] Bertha Diaz MD Constipation, unspecified constipation type 04/23/2025 Refill [facility] [address] [place] [address] Mariya Juan MD 04/19/2025 Results Follow-Up [facility] [address] [place] [address] Mariya Juan MD ~PT, ~INR - ANTI COAG CLINIC, PROTHROMBIN TIME WHOLE BLD POC 04/19/2025 Orders Only GENERIC EXTERNAL DATA DEPARTMENT Provider, Generic External Data 04/12/2025 Results Follow-Up [facility] [address] [place] [address] Mariya Juan MD ~PT, ~INR - ANTI COAG CLINIC, PROTHROMBIN TIME WHOLE BLD POC 04/12/2025 Orders Only GENERIC EXTERNAL DATA DEPARTMENT Provider, Generic External Data 04/05/2025 Results Follow-Up [facility] [address] [place] [address] Mariya Juan MD ~PT, ~INR - ANTI COAG CLINIC, PROTHROMBIN TIME WHOLE BLD POC 04/05/2025 Orders Only GENERIC EXTERNAL DATA DEPARTMENT Provider, Generic External Data from Last 3 Months Immunizations Immunization Administration Dates Next Due DTaP 07/18/1989, 7,12/20/1986,11/19 Hep B, Adolescent or Pediatric 12/10/1998,1997,1998 Hib ([facility]) 10/20/1987 Influenza injectable quadriv alent IIV4 [...] 85 02/20/2025 2:08 PM EDT Temperature 36.5 C (97.7 F) 02/20/2025 2:08 PM EDT Respiratory Rate 12 02/20/2025 2:08 PM EDT Oxygen Saturation 97% 02/20/2025 2:08 PM EDT Inhaled Oxygen Concentration - - Weight 120 kg (265 lb 6 oz) 02/20/2025 2:08 PM E DT Height 190.5 cm (6' 3 ) 02/20/2025 2:08 PM EDT Body Mass Index 33.17 02/20/2025 2:08 PM EDT Plan of Treatment Upcoming Encounters Date Type Department Care Team (Late st Contact Info) Description 08/09/2025 10:45 AM EDT Office Visit [facility] MEDICINE [address] [place] [phone] Mariya Juan MD [address] [place] [address] Health Maintenance Due Date Last Done Comments Disability Screening 1985 Alcohol/Substance Use Screening 1997 Family Planning (PISQ) 2000 HPV Vaccines (1 - Male 3-dose series) 2000 COVID-19 Vaccine ( season) 2024 04/28/2023, 03/17/2022, 02/09/2022 Depression Monitoring 01/21/2025 07/24/2024, 024 Influenza Vaccine (#1) 2025 , 11/10/2020, 11/10/2020, Additional history exists SDOH Screening 07/24/2025 07/24/2024 DTaP/Tdap/Td Vaccines (10 [...] Years) and At-Risk Patients (6 to 49) Years Completed 04/28/2023, 02/17/2013 HIV Screening Completed 09/14/2024 Hepatitis C Screening Completed 09/14/2024 Hepatitis A Vaccines Aged Out No long [...] Comments PROTHROMBIN TIME WHOLE BLD POC Routine 06/10/2025 3:00 PM EDT ~PT, ~INR - ANTI COAG CLINIC Routine 06/10/2025 3:00 PM EDT PROTHROMBIN TIME WHOLE BLD POC Routine 05/31/2025 2:24 PM EDT ~PT, ~INR - ANTI COAG CLINIC Routine 05/31/2025 2:24 PM EDT PROTHROMBIN TIME WHOLE BLD POC Routine 05/17/2025 3:01 PM EDT ~PT, ~INR - ANTI COAG CLINIC Routine 05/17/2025 3:01 PM EDT PROTHROMBIN TIME WHOLE BLD POC Routine 05/06/2025 2:26 PM EDT ~PT, ~INR - ANTI COAG CLINIC Routine 05/06/2025 2:26 PM EDT PROTHROMBIN TIME WHOLE BLD POC Routine 04/29/2025 2:29 PM EDT ~PT, ~INR - ANTI COAG CLINIC Routine 04/29/2025 2:29 PM EDT PROTHROMBIN TIME WHOLE BLD POC Routine 04/26/2025 1:27 PM EDT ~PT, ~INR - ANTI COAG CLINIC Routine 04/26/2025 1:27 PM EDT PROTHROMBIN TIME WHOLE BLD POC Routine 04/19/2025 11:57 AM EDT ~PT, ~INR - ANTI COAG CLINIC Routine 04/19/2025 11:57 AM EDT PROTHROMBIN TIME WHOLE BLD POC Routine 04/12/2025 11:31 AM EDT ~PT, ~INR - ANTI COAG CLINIC Routine 04/12/2025 11:31 AM EDT PROTHROMBIN TIME WHOLE BLD POC Routine 04/05/2025 11:36 AM EDT ~PT, ~INR - ANTI COAG CLINIC Routine 04/05/2025 11:36 AM EDT HEPATITIS C AB W/REFL TO HCV RNA, QN, PCR Routine 09/14/2024 4:32 PM EST Annual physical exam HIV 1/2 ANTIGEN/ANTIBODY, FOURTH GENERATION W/RFL Routine 09/14/2024 4:32 PM EST Annual physical exam LIPID PANEL, STANDARD Routine 09/14/2024 4:23 PM EST Annual physical exam from Last 3 Months or Most Recently Relevant to Health Maintenance Results * (ABNORMAL) PROTHROMBIN TIME WHOLE BLD POC (06/10/2025 3:00 PM EDT) Only the most recent of9 resultswithin the time period is included. Protime 27.4(H) 11.1 - 13.5 sec [facility] 06/10/2025 3:00 PM EDT 06/10/2025 3:01 PM EDT us Generic External Data Provider LAB BLOOD ORDERAB LES Final Result [facility] [address] [place] [phone] * (ABNORMAL) ~PT, ~INR - ANTI COAG CLINIC (06/10/2025 3:00 PM EDT) Only the most recent of9 resultswithin the time period is included. Prothrombin Time INR 2.3(H) 0.9 - 1.1 [facility] Comment:METER #: [id number] TERNATIONAL NORMALIZED RATIO (INR) REFERENCE RANGES Reference RangeFor patients not on anticoagulant therapy: 0.9 - 1.1INR ranges for oral anticoagulanttherapy:For prevention and treatment of venous thrombosis and pulmonary embolism: 2.0 - 3.0For acute myocardial infarction with aspirin therapy: 2.0 - 3.0For acute myocardial infarction without aspirin therapy: 3.0 - 4.0For patients with mechanical prosthetic heart valves: 2.5 - 3.5 06/10/2025 3:00 PM EDT 06/10/2025 3:01 PM EDT us Generic External Data Provider LAB BLOOD ORDERAB LES Final Result Performing Organization Address [facility]/ZIP Co de Phone Number [facility] [address] [place] [phone] * Hepatitis C Antibody with Reflex to HCV, RNA, Quantitative, Real-Time PCR (09/14/2024 4:32 PM EST) Hepatitis C Antibody Nonreactive Nonreactive [facility] Comment:Antibodies to HCV no t detected; does not exclude early acuteHCV infection. Blood Venous blood specimen / Unknown 09/14/2024 4:32 PM EST 09/14/2024 6:05 PM EST us Mariya Cho MD LAB BLOOD ORDERAB LES Final Result Performing Organization Address City/[facility]/ZIP Co de Phone Number [facility] [address] [place] [phone] * HIV-1/2 Antigen and Antibodies, Fourth Generation, with Reflexes (09/14/2024 4:32 PM EST) HIV AB/AG Nonreactive Nonreactive [facility] Comment:HIV-1 p24 Ag and/or HIV-1/HIV-2 Ab not detected.A test result that is nonreactive does not exclude thepossibility of exposure to or infection with HIV-1 and/orHIV-2. Nonreactive results in this assay for individualswith prior exposure to HIV-1 and/or HIV-2 may be due toantigen and antibody levels that are below the limit ofdetection of this assay.The [employer] HIV Ag/Ab Combo assay result andsupplemental assay results should be interpreted inconjunction with the patient's clinical presentation,history and other laboratory results. If the results areinconsistent with clinical evidence, additional testing issuggested to confirm the result. Blood Venous blood specimen / Unknown 09/14/2024 4:32 PM EST 09/14/2024 6:05 PM EST us Mariya Cho MD LAB BLOOD ORDERAB LES Final Result Performing Organization Address [facility] Co de Phone Number [facility] [address] [place] [phone] [phone] * (ABNORMAL) Lipid Panel, Standard (09/14/2024 4:23 PM EST) Triglycerides 194(H) <150 mg/dL [facility] Comment:Desirable Triglyceri de: less than 150 mg/dLBorderline High Triglyceride 150-199 mg/dLHigh Triglyceride: 200-499 mg/dLVery High Triglyceride: greater than or equal to 5OO mg/dL Cholesterol 131 <200 mg/dL [facility] Comment:Desirable Cholestero l: less than 200 mg/dLBorderline High Cholesterol: 200-239 mg/dLHigh Cholesterol: greater than 239 mg/dL LDL Cholesterol Calculated 62 <100 mg/dL [facility] Comment:Desirable LDL: less than 100 mg/dLNear Optimal/Above Optimal LDL: 110- 129 mg/dLBorderline High LDL: 130-159 mg/dLHigh LDL: 160-189 mg/dLVery High LDL: greater than or equal to 190 mg/dL HDL Cholesterol 31(L) >40 mg/dL [facility] Comment:Desirable HDL: great er than 40 mg/dL Note: This HDL assay may give artificially low results in patients with liver disease. Blood Venous blood specimen / Unknown 09/14/2024 4:23 PM EST 09/14/2024 6:05 PM EST us Mariya Cho MD LAB BLOOD ORDERAB LES Final Result Performing Organization Address [facility]/ZIP Co de Phone Number [facility] [address] [place] [address] [phone] from Last 3 Months or Most Recently Relevant to Health Maintenance Insurance [employer] < 65 DENIS ERNANDEZ [id number] Care Teams Business Analytics Specialist Relationship Specialty Start Date End Date Mariya Juan MD [address] [place] [phone] PCP - General Internal Medicine 04/28/23
--- OUTSIDE RECORDS SUMMARY | 2025-07-03 12:18 | XMS_ITS | Encounter Summary ---
Author Organization [employer] Address [address] [facility] 7t [place] [address] Care Team Providers Care Fabric And Textile Factory Worker Name Role Phone Mariya Juan MD Primary Care Pro vider Reason for Visit * Reason Comments Med Refill Encounter Details Date Type Department Care Team ([facility] st Contact Info) Description 04/25/2025 Refill [facility] MEDICINE [address] [place], [place] [phone] Bertha Diaz MD [address] [place], [place] [phone] Constipation, unspecified constipation type Social History Tobacco [...] Description 08/09/2025 10:45 AM EDT Office Visit [facility] MEDICINE [address] [place] [phone] Mariya Juan MD [address] [place] [phone] documented as of this encounter Visit Diagnoses Diagnosis Constipation, unspecified constipation type documented in this encounter Additional Health Concerns Assessment Noted Time PHQ-9 Depression Total Score: 12 024 2:22 PM EDT documented as of this encounter Care Teams Fabric And Textile Factory Worker Relationship Specialty Start Date End Date Mariya Juan MD [address] [place] [phone] PCP - General Internal Medicine 04/28/23 documented as of this encounter
--- OUTSIDE RECORDS SUMMARY | 2025-07-03 12:18 | XMS_ITS | Clinical Summary ---
Author Organization [facility] Address [address] [place] [address] Phone Care Team Providers Care Cloth Washer Operator Name Role Phone Sharon Baum MD Primary Care Provider [phone] Allergies No known active allergies Medications Buprenorphine [...] to 49 Years) Completed 04/28/2023, 02/17/[address] [place] [address] ([id number]) [facility] ([id number]) DENIS ERNANDEZ [id number] Care Teams Cloth Washer Operator Relationship Specialty Start Date End Date Sharon Baum MD [address] [place] [phone] PCP - General Internal Medicine 10/20/22
--- OUTSIDE RECORDS SUMMARY | 2025-07-03 12:18 | XMS_ITS | Encounter Summary ---
Author Organization [employer] Address [address] [facility] 7t [place] [address] Care Team Providers Care Sociology Research Assistant Name Role Phone Mariya Juan MD Primary Care Pro vider Reason for Visit * Reason Comments Med Refill Encounter Details Date Type Department Care Team (Late st Contact Info) Description 05/23/2023 Refill [facility] [address] [place], [place] [phone] Kay Dennis FNP Social History Tobacco Use Types Packs/Day Years [...] Department Care Team (Late Contact Info) Description 08/09/2025 10:45 AM EDT Office Visit [facility] [address] [place], [place] [phone] Mariya Juan MD [address] [place], [place] [phone] documented as of this encounter Visit Diagnoses Not on filedocumented in this encounter Additional Health Concerns Assessment Noted Time PHQ-9 Depression Total Score: 6 04/28/20 2:32 PM EDT documented as of this encounter Care Teams Sociology Research Assistant Relationship Specialty Start Date End Date Mariya Juan MD [address] [place] [address] PCP - General Internal Medicine 04/28/23 documented as of this encounter
--- OUTSIDE RECORDS SUMMARY | 2025-07-03 12:18 | XMS_ITS | Encounter Summary ---
Author Organization [employer] Address [address] [place] [address] [place] [address] Care Team Providers Care Investment Specialist Name Role Phone Mariya Juan MD Primary Care Pro vider Reason for Visit * Reason Onset Date Comments Med Refill 04/20/2024 Encounter Details Date Type Department Care Team ([facility] st Contact Info) Description 04/20/2024 Telephone [facility] MEDICINE [address] [place], [place] [phone] Maryia Juan MD [address] [place] [address] Med Refill Social History Tobacco Use Types [...] EDT Telephone call placed to Freida at [facility] Coumadin clinic. Gave orders to continue [...] PM EDT Received call from Freida from [facility] coumadin clinic. Pt back today for recheck, [...] 04/20/2024 4:01 PM EDT TC placed to [facility] Anticoagulation to inquire when pt last got INR drawn. According to the receptionist airline lounge the pt was to come for a [...] solution prefilled syringe To be sent to: [id number] [facility] [id number] [facility] documented in this encounter Plan of Treatment Upcoming Encounters Date Type Department Care Team (Late st Contact Info) Description 08/09/2025 10:45 AM EDT Office Visit [facility] MED[facility]INE [address] [place] [phone] Mariya Juan MD [address] [place] [phone] documented as of this encounter Visit Diagnoses Not on filedocumented in this encounter Additional Health Concerns Assessment Noted Time PHQ-9 Depression Total Score: 6 04/28/20 23 2:32 PM EDT documented as of this encounter Care Teams Investment Specialist Relationship Specialty Start Date End Date Mariya Juan MD [address] [place] [phone] PCP - General Internal Medicine 04/28/23 documented as of this encounter
--- OUTSIDE RECORDS SUMMARY | 2025-07-03 12:18 | XMS_ITS | Encounter Summary ---
Author Organization [employer] Address [address] [facility] 7t [place] [address] Care Team Providers Care Apple Peeler Operator Name Role Phone Kay Dennis LABORER ADJUSTABLE STEEL JOIST Primary Care Provider Mariya Lombradi MD Primary Care Pro vider Reason for Visit * Reason Onset Date Comments Durable Medical Equipment 02/25/2023 Encounter Details Date Type Department Care Team (Late st Contact Info) Description 02/25/2023 Telephone [facility] MEDICINE 230 [place] [address] Kay Dennis, LABORER ADJUSTABLE STEEL JOIST Durable Medical Equipment Social History Tobacco Use [...] 2:09 PM EDT Tc from Tammy with N requesting a script for a Saebo Glove to straighten the pt right hand due to stroke pt had not so long ago. Please sent to script [email or web address] If any questions please contact Tammy at [phone] documented in this encounter Plan of Treatment Upcoming Encounters Date Type Department Care Team (Late st Contact Info) Description 08/09/2025 10:45 AM EDT Office Visit [facility] MEDICINE [address] [place] [phone] Mariya Juan MD [address] [place] [address] [phone] documented as of this encounter Visit Diagnoses Not on filedocumented in this encounter Care Teams Apple Peeler Operator Relationship Specialty Start Date End Date Kay Dennis FNP PCP - General Family Medicine 07/05/22 04/27/23 Mariya Juan MD [address] [place] [address] [phone] PCP - General Internal Medicine 04/28/23 documented as of this encounter
--- OUTSIDE RECORDS SUMMARY | 2025-07-03 12:18 | XMS_ITS | Encounter Summary ---
Author Organization [employer] Address [address] [place] [address] 7 [place] [address] Care Team Providers Care Row Boss Hoeing Name Role Phone Mariya Juan MD Primary Care Pro vider Encounter Details Date Type Department Care Team ([facility] st Contact Info) Description 04/29/2025 Results Follow-Up [facility] MEDICINE 230 [place] [address] Mariya Juan MD 230 [place] [address] ~PT, ~INR - ANTI COAG CLINIC, PROTHROMBIN [...] 10:45 AM EDT Office Visit [facility] MEDICINE [address] [place] [phone] Mariya Juan MD [address] [place] [phone] documented as of this encounter Visit Diagnoses Not on filedocumented in this encounter Additional Health Concerns Assessment Noted Time PHQ-9 Depression Total Score: 12 024 2:22 PM EDT documented as of this encounter Care Teams Row Boss Hoeing Relationship Specialty Start Date End Date Mariya Juan MD [address] [place] [phone] PCP - General Internal Medicine 04/28/23 documented as of this encounter
--- OUTSIDE RECORDS SUMMARY | 2025-07-03 12:18 | XMS_ITS | Encounter Summary ---
Author Organization [employer] Address [address] [place] [address] 7 [place] [address] Care Team Providers Care Research Electrician Name Role Phone Mariya Juan MD Primary Care Pro vider Encounter Details Date Type Department Care Team ([facility] st Contact Info) Description 05/06/2025 Results Follow-Up [facility] MEDICINE 230 [place] [address] Mariya Juan MD 230 [place] [address] ~PT, ~INR - ANTI COAG CLINIC, PROTHROMBIN [...] the past 12 months, has t he [employer], gas, oil or water [employer] threatened to shut off services in your [...] Encounter Note - Mariya Cho MD - 05/06/2025 4:10 PM EDT Pt f at coumadin clinic -Pt range goal 2.5-3.5. documented in this encounter Plan of Treatment Upcoming Encounters Date Type Department Care Team (Late st Contact Info) Description 08/09/2025 10:45 AM EDT Office Visit [facility] MEDICINE [address] [place] [address] Mariya Juan MD 230 [place] [address] documented as of this encounter Visit Diagnoses Not on filedocumented in this encounter Additional Health Concerns Assessment Noted Time PHQ-9 Depression Total Score: 12 024 2:22 PM EDT documented as of this encounter Care Teams Research Electrician Relationship Specialty Start Date End Date Mariya Juan MD [address] [place] [phone] PCP - General Internal Medicine 04/28/23 documented as of this encounter
--- OUTSIDE RECORDS SUMMARY | 2025-07-03 12:18 | XMS_ITS | Encounter Summary ---
Author Organization [employer] Address [address] [place] [address] 7 [place] [address] Care Team Providers Care Wood Tile Installation Helper Name Role Phone Mariya Juan MD Primary Care Pro vider Encounter Details Date Type Department Care Team ([facility] st Contact Info) Description 06/10/2025 Results Follow-Up [facility] MEDICINE 230 [place] [address] Mariya Juan MD 230 [place] [address] ~PT, ~INR - ANTI COAG CLINIC, PROTHROMBIN [...] the past 12 months, has t he [employer], gas, oil or water [employer] threatened to shut off services in your [...] Encounter Note - Mariya Cho MD - 06/10/2025 3:21 PM EDT Pt f at coumadin clinic -Pt range goal 2.5-3.5. documented in this encounter Plan of Treatment Upcoming Encounters Date Type Department Care Team (Late st Contact Info) Description 08/09/2025 10:45 AM EDT Office Visit [facility] MEDICINE [address] [place] [address] Mariya Juan MD 230 [place] [address] documented as of this encounter Visit Diagnoses Not on filedocumented in this encounter Additional Health Concerns Assessment Noted Time PHQ-9 Depression Total Score: 12 024 2:22 PM EDT documented as of this encounter Care Teams Wood Tile Installation Helper Relationship Specialty Start Date End Date Mariya Juan MD [address] [place] [phone] PCP - General Internal Medicine 04/28/23 documented as of this encounter
--- OUTSIDE RECORDS SUMMARY | 2025-07-03 12:18 | XMS_ITS | Encounter Summary ---
Author Organization [employer] Address [address] [place] [address] 7 [place] [address] Care Team Providers Care Official Court Reporter Name Role Phone SonnyKay [facility] Primary Care Provider Mariya Lombardi MD Primary Care Pro vider Encounter Details Date Type Department Care Team (Late Contact Info) Description 12/16/2022 Orders Only [facility] MEDICINE [address] [place] [address] [phone] Aida Villegas LPN Social History Tobacco Use [...] 08/09/2025 10:45 AM EDT Office Visit [facility] MEDICINE [address] [place] [address] Mariya Juan MD [address] [place] [address] documented as of this encounter Procedures Procedure Name Priority Date/Time Associated Diagnosis Comments PROTHROMBIN TIME WHOLE BLD POC Routine 12/16/2022 2:35 PM EST ~PT, ~INR - ANTI COAG CLINIC Routine 12/16/2022 2:35 PM EST documented in this encounter Results * (ABNORMAL) PROTHROMBIN TIME WHOLE BLD POC (12/16/2022 2:35 PM EST) Protime 45.7(H) 11.1 - 13.5 sec [facility] 12/16/2022 2:35 PM EST 12/16/2022 2:36 PM EST [facility] External Provider LAB BLO OD ORDERABLES Final Result Performing Organization Address [facility] de Phone Number [facility] [address] [place] [phone] * (ABNORMAL) ~PT, ~INR - ANTI COAG CLINIC (12/16/2022 2:35 PM EST) Prothrombin Time INR 3.8(H) 0.9 - 1.1 [facility] Comment:METER #: [id number] TERNATIONAL NORMALIZED RATIO (INR) REFERENCE RANGES Reference [...] 2:35 PM EST 12/16/2022 2:36 PM EST [facility] External Provider LAB BLO OD ORDERABLES Final Result Performing Organization Address [facility] de Phone Number [facility] [address] [place] [phone] documented in this encounter Visit Diagnoses Not on filedocumented in this encounter Care Teams Official Court Reporter Relationship Specialty Start Date End Date Kay Dennis FNP PCP - General Family Medicine 07/05/22 04/27/23 Mariya Juan MD 230 [place] [address] PCP - General Internal Medicine 04/28/23 documented as of this encounter
[2025-07-04 08:07] LABS: Prothrombin Time Whole Bld POC 41.1 sec (11.1-13.5); ~PT, ~INR - Anti Coag Clinic 3.4 (0.9-1.1)
== END 2025-07-03 11:41 | disposition home or self-care (01) ==
LOC: HO.ACS 11:23
PROVIDERS: PCP Student in an Organized Health Care Education/Training Program; Visit Provider Internal Medicine Medical Oncology
DX: Z79.01 Long term (current) use of anticoagulants (principal)

== ENCOUNTER → 2025-07-03 11:23 | Outpatient (BNVA) | payer OTHER, SELFPAY | PROVIDERS: PCP Student in an Organized Health Care Education/Training Program; Visit Provider Internal Medicine Medical Oncology | DX: Z95.2 Presence of prosthetic heart valve (principal); Z79.01 Long term (current) use of anticoagulants; Z51.81 Encounter for therapeutic drug level monitoring | CPT/HCPCS: 85610; 99211 ==

== ENCOUNTER 2025-07-12 11:33 | Outpatient (AMB) | payer OTHER, SELFPAY ==
[2025-07-12 11:39] LABS: Prothrombin Time Whole Bld POC 20.3 sec (11.1-13.5); ~PT, ~INR - Anti Coag Clinic 1.7 (0.9-1.1)
--- NOTE | 2025-07-12 11:41 | MHC.OFFVISCO ---
Intake Intake Visit Reasons: Anticoagulation Allergies hydrocodone (From VICODIN) Allergy (Unknown, Verified 07/12/25 11:34) GI UPSET Medication List - Last Reconciled 07/12/25 by Kayla Alvarez, JOLENE acetaminophen 325 mg PO QID PRN 7 days acetaminophen ER (Tylenol Arthritis Pain) 1,300 mg PO Q8H PRN albuterol sulfate 90 mcg/actuation (ProAir HFA) 2 puffs inhalation Q4-6H PRN atorvastatin 20 mg PO DAILY blood pressure test kit-large As directed buprenorphine-naloxone 8-2 mg (Suboxone) 1 film sublingual BID celecoxib (Celebrex) 200 mg PO DAILY PRN coenzyme Q10 (Co Q-10) PO fluticasone propionate 50 mcg/actuation sprays intranasal PRN hydroxyzine pamoate 25 mg PO TID inhalational spacing device (EcoloCap Apscale [facility] spacer) As directed loratadine 10 mg PO DAILY melatonin 5 mg PO BEDTIME PRN omeprazole 20 mg PO DAILY ondansetron 4 mg PO Q8H PRN 4 days ondansetron HCl 4 mg PO Q8H PRN polyethylene glycol 3350 (Miralax) 17 grams PO DAILY sodium chloride 0.65% (Deep Sea Nasal) sprays intranasal warfarin 7.5 mg See Protocol PO 2XW warfarin 10 mg See Protocol PO 5XW Nursing Note INR: 1.7 out of therapeutic range of 2.5-3.5 Pt missed 5 doses. He states he has been very busy and tired because his kids have restarted school. He realized yesterday that he missed the doses and took 7.5mg last night and took a dose of Lovenox as previously ordered Medications and supplements reviewed Patient status: feels well Medications or supplements: no changes Diet: usual diet for pt Denies any signs and symptoms of bleeding or clotting or unusual bruising Bleeding, bruising, clotting discussed Nutritional guidance given: to avoid greens X 3 days Dose: 10mg today, then 7.5mg X 2 days then retest. ALos will take lovenox bid. F/U INR Date : 07/15/25?? Patient verbalizing understanding of instructions with read back given. T/C to pcp. Spoke to Elisa. INR with dosing plan of warfarin and lovenox, and next retest date reported to her. Anti-Coag Initial Assessment Social Hx Patient Tobacco Use Status: Former Tobacco user Tobacco use type: Cigarette alcohol intake: never Alcohol intake frequency: does not drink Coding Level of Care Code Est Patient Level 1 Diagnoses Current use of anticoagulant therapy Z79.01 Assessment & Plan Assessment & Plan (1) Current use of anticoagulant therapy: Code(s): Z79.01 - manager long term care (current) 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
--- OUTSIDE RECORDS SUMMARY | 2025-07-12 12:30 | XMS_ITS | Encounter Summary ---
Author Organization [employer] Address [address] [facility] 7t [place] [address] Care Team Providers Care Sales Representative Sales Manager Name Role Phone Mariya Juan MD Primary Care Pro vider Reason for Visit * Reason Comments Med Refill Encounter Details Date Type Department Care Team ([facility] st Contact Info) Description 04/25/2025 Refill [facility] MEDICINE 230 [place], [place] [phone] Bertha Diaz MD 230 [place], [place] [phone] Constipation, unspecified constipation type Social History Tobacco [...] 08/09/2025 10:45 AM EDT Office Visit [facility] MEDICINE [address] [place] [phone] Mariya Juan MD [address] [place] [phone] documented as of this encounter Visit Diagnoses Diagnosis Constipation, unspecified constipation type documented in this encounter Additional Health Concerns Assessment Noted Time PHQ-9 Depression Total Score: 12 024 2:22 PM EDT documented as of this encounter Care Teams Sales Representative Sales Manager Relationship Specialty Start Date End Date Mariya Juan MD [address] [place] [phone] PCP - General Internal Medicine 04/28/23 documented as of this encounter
--- OUTSIDE RECORDS SUMMARY | 2025-07-12 12:30 | XMS_ITS | Encounter Summary ---
Author Organization [employer] Address [address] [place] [address] [place] [address] Care Team Providers Care Steam Press Operator Name Role Phone Mariya Juan MD Primary Care Pro vider Reason for Visit * Reason Onset Date Comments Med Refill 04/20/2024 Encounter Details Date Type Department Care Team ([facility] st Contact Info) Description 04/20/2024 Telephone [facility] MEDICINE [address] [employer] [place], [place] [phone] Mariya Juan MD 230 [place] [address] Med Refill Social History Tobacco Use Types [...] 3:53 PM EDT Telephone call placed to Freiad at [facility] Coumadin clinic. Gave orders to [...] PM EDT Received call from Freida from [facility] coumadin [facility]. Pt back today for recheck, [...] 04/20/2024 4:01 PM EDT TC placed to [facility] Anticoagulation to inquire when pt last got INR drawn. According to the administrative receptionist the pt was to come for [...] solution prefilled syringe To be sent to: [facility] #[id number] [facility] [address] [facility] documented in this encounter Plan of Treatment Upcoming Encounters Date Type Department Care Team (Late st Contact Info) Description 08/09/2025 10:45 AM EDT Office Visit [facility] MEDICINE [address] [place] [phone] Mariya Juan MD [address] [place] [address] documented as of this encounter Visit Diagnoses Not on filedocumented in this encounter Additional Health Concerns Assessment Noted Time PHQ-9 Depression Total Score: 6 04/28/20 23 2:32 PM EDT documented as of this encounter Care Teams Steam Press Operator Relationship Specialty Start Date End Date Mariya Juan MD [address] [place] [phone] PCP - General Internal Medicine 04/28/23 documented as of this encounter
--- OUTSIDE RECORDS SUMMARY | 2025-07-12 12:30 | XMS_ITS | Encounter Summary ---
Author Organization [employer] Address [address] [place] [address] 7 [place] [address] Care Team Providers Care Seeing Eye Dog Teacher Name Role Phone SonnyKay [facility] Primary Care Provider Mariya Lombardi MD Primary Care Pro vider Encounter Details Date Type Department Care Team (Late Contact Info) Description 12/16/2022 Orders Only [facility] MEDICINE [address] [place] [address] [phone] Aida Villegas LPN Social History Tobacco Use [...] 10:45 AM EDT Office Visit [facility] MEDICINE [address] [place] [address] Mariya Juan MD [address] [place] [address] [phone] documented as of this encounter Procedures Procedure Name Priority Date/Time Associated Diagnosis Comments PROTHROMBIN TIME WHOLE BLD POC Routine 12/16/2022 2:35 PM EST ~PT, ~INR - ANTI COAG CLINIC Routine 12/16/2022 2:35 PM EST documented in this encounter Results * (ABNORMAL) PROTHROMBIN TIME WHOLE BLD POC (12/16/2022 2:35 PM EST) Protime 45.7(H) 11.1 - 13.5 sec [facility] 12/16/2022 2:35 PM EST 12/16/2022 2:36 PM EST [facility] External Provider LAB BLO OD ORDERABLES Final Result Performing Organization Address [facility] de Phone Number [facility] [address] [place] [phone] * (ABNORMAL) ~PT, ~INR - ANTI COAG CLINIC (12/16/2022 2:35 PM EST) Prothrombin Time INR 3.8(H) 0.9 - 1.1 [facility] Comment:METER #: [id number] TERNATIONAL NORMALIZED RATIO (INR) REFERENCE RANGES Reference [...] 2:35 PM EST 12/16/2022 2:36 PM EST [facility] External Provider LAB BLO OD ORDERABLES Final Result Performing Organization Address [facility] de Phone Number [facility] [address] [place] [phone] documented in this encounter Visit Diagnoses Not on filedocumented in this encounter Care Teams Seeing Eye Dog Teacher Relationship Specialty Start Date End Date Kay Dennis FNP PCP - General Family Medicine 07/05/22 04/27/23 Mariya Juan MD 230 [place] [address] PCP - General Internal Medicine 04/28/23 documented as of this encounter
--- OUTSIDE RECORDS SUMMARY | 2025-07-12 12:30 | XMS_ITS | Encounter Summary ---
Author Organization [employer] Address [address] [place] [address] 7 [place] [address] Care Team Providers Care Thermodynamics Engineer Name Role Phone Mariya Juan MD Primary Care Pro vider Encounter Details Date Type Department Care Team ([facility] st Contact Info) Description 06/10/2025 Results Follow-Up [facility]ICINE 230 [place] [address] Mariya Juan MD 230 [place] [address] ~PT, ~INR - ANTI COAG CLINIC, PROTHROMBIN [...] the past 12 months, has t he [employer], gas, oil or water [employer] threatened to shut off services in your [...] Description 08/09/2025 10:45 AM EDT Office Visit [facility] MEDICINE [address] [place] [address] Mariya Juan MD 230 [place] [address] documented as of this encounter Visit Diagnoses Not on filedocumented in this encounter Additional Health Concerns Assessment Noted Time PHQ-9 Depression Total Score: 12 024 2:22 PM EDT documented as of this encounter Care Teams Thermodynamics Engineer Relationship Specialty Start Date End Date Mariya Juan MD [address] [place] [phone] PCP - General Internal Medicine 04/28/23 documented as of this encounter
--- OUTSIDE RECORDS SUMMARY | 2025-07-12 12:30 | XMS_ITS | Encounter Summary ---
Author Organization [employer] Address [address] [facility] 7t [place] [address] Care Team Providers Care Dining Room Cashier Name Role Phone Mariya Juan MD Primary Care Pro vider Reason for Visit * Reason Comments Med Refill Encounter Details Date Type Department Care Team (Late st Contact Info) Description 05/23/2023 Refill [facility] MEDICINE 230 [place], [place] [phone] Kay Dennis FNP Social History Tobacco Use [...] Description 08/09/2025 10:45 AM EDT Office Visit [facility] MEDICINE 230 [place], [place] [phone] Mariya Juan MD 230 [place], [place] [phone] documented as of this encounter Visit Diagnoses Not on filedocumented in this encounter Additional Health Concerns Assessment Noted Time PHQ-9 Depression Total Score: 6 04/28/20 2:32 PM EDT documented as of this encounter Care Teams Dining Room Cashier Relationship Specialty Start Date End Date Mariya Juan MD 230 [place] [address] PCP - General Internal Medicine 04/28/23 documented as of this encounter
--- OUTSIDE RECORDS SUMMARY | 2025-07-12 12:30 | XMS_ITS | Clinical Summary ---
Author Organization [facility] Address [address] [place] [address] Phone Care Team Providers Care Acid Etch Operator Name Role Phone Sharon Baum MD Primary Care Provider [phone] Allergies No known active allergies Medications Buprenorphine [...] to 49 Years) Completed 04/28/2023, 02/17/[address] [place] [address] ([id number]) [facility] ([id number]) DENIS ERNANDEZ [phone] Care Teams Acid Etch Operator Relationship Specialty Start Date End Date Sharon Baum MD [address] [place] [phone] PCP - General Internal Medicine 10/20/22
--- OUTSIDE RECORDS SUMMARY | 2025-07-12 12:30 | XMS_ITS | Encounter Summary ---
Author Organization [employer] Address [address] [facility] 7t [place] [address] Care Team Providers Care Band And Cuff Cutter Name Role Phone Kay Dennis DIRECTOR CRAFT CENTER Primary Care Provider Mariya Lombardi MD Primary Care Pro vider Reason for Visit * Reason Onset Date Comments Durable Medical Equipment 02/25/2023 Encounter Details Date Type Department Care Team (Late st Contact Info) Description 02/25/2023 Telephone [facility] MEDICINE 230 [place] [address] Kay Dennis, DIRECTOR CRAFT CENTER Durable Medical Equipment Social History Tobacco Use [...] long ago. Please sent to script [email or web address] If any questions please contact Tammy at [phone] documented in this encounter Plan of Treatment Upcoming Encounters Date Type Department Care Team (Late st Contact Info) Description 08/09/2025 10:45 AM EDT Office Visit [facility] MEDICINE [address] [place] [phone] Mariya Juan MD [address] [place] [address] [phone] documented as of this encounter Visit Diagnoses Not on filedocumented in this encounter Care Teams Band And Cuff Cutter Relationship Specialty Start Date End Date Kay Dennis FNP PCP - General Family Medicine 07/05/22 04/27/23 Mariya Juan MD [address] [place] [address] [phone] PCP - General Internal Medicine 04/28/23 documented as of this encounter
--- OUTSIDE RECORDS SUMMARY | 2025-07-12 12:30 | XMS_ITS | Clinical Summary ---
Author Organization [employer] Address [address] [facility] 7t [place] [address] Care Team Providers Care Photographic Press Screwmaker Name Role Phone Mariya Juan MD Primary Care Pro vider Allergies No known active allergies Medications * This document contains information received from the source organization and may not represent a complete record from that organization. acetaminophen (Tylenol 8 Hour) 650 MG ER tablet Take 2 tablets by mouth every 8 (eight) hours. 07/21/20 21 Active Buprenorphine HCl-Naloxone HCl (Suboxone) 8-[address] 1 Film under the tongue every 12 (twelve) hours. Active cholecalciferol (Vitamin D-3) 50 MCG (1999 UT) tablet Take 1 tablet by mouth at bed time. 12/12/19 21 Active naloxone (Narcan) 4 mg/0.1 mL nasal spray Administer 0.1 mL into affected nostril(s). 06/19/20 20 Active multivitamin (Theragran) tablet take 1 tablet by oral route every day with food 06/04/20 20 Active albuterol (2.5 MG/3ML) 0.083% nebulizer solutionIndication s:Mild intermittent asthma without complication Take 3 mL (2.5 mg) by nebulization every 4 (four) hours if needed for wheezing or shortness of breath. 75 mL 3 04/28/20 23 Active loratadine (Claritin) 10 MG tabletIndications: Seasonal allergic rhinitis, unspecified trigger Take 1 tablet (10 mg) by mouth in the morning. 90 tablet 1 04/28/20 23 Active fluticasone (Flonase Allergy Relief) 50 MCG/ACT nasal spray Administer 1 spray into each nostril 2 times daily. Shake gently. Before first use, prime pump. After use, clean tip and replace cap. 16 g 12 01/04/20 24 Active sodium chloride ([place]) 0.65 % nasal spray Administer 1 spray into each nostril if needed for congestion. 15 mL 2 07/24/20 24 025 Active atorvastatin (Lipitor) 20 MG tabletIndications: Mixed hyperlipidemia Take 1 tablet (20 mg) by mouth Once per day. 30 tablet 3 09/12/20 24 025 Active warfarin (Coumadin) 7.5 MG tabletIndications: Mechanical heart valve present TAKE 1 TABLET BY MOUTH ON 6 DAYS A WEEK. TAKE 5MG ON 1 DAY OF THE WEEK. 60 tablet 2 12/25/19 25 Active amoxicillin (Amoxil) 500 MG capsuleIndications :Pre-op evaluation Take 4 capsules before dental procedure 4 capsule 02/21/20 25 Active Enoxaparin Sodium (Lovenox) 100 MG/ML solution prefilled syringeIndications :Hx of prosthetic mitral valve Inject 1 mL (100 mg) under the skin 2 times daily. lovenox to be given if INR is 2.0 or less and can be stopped once INR is 2.5 or more 6 mL 02/21/20 25 Active hydrOXYzine pamoate (Vistaril) 25 MG capsuleIndications :Anxiety state TAKE 1 CAPSULE BY MOUTH EVERY 8 HOURS NEEDED FOR ANXIETY 90 capsule 1 03/26/20 25 Active warfarin (Coumadin) 5 MG tabletIndications: Mechanical heart valve present TAKE 2 TABLETS BY MOUTH EVERY TUESDAY, TUESDAY, TUESDAY, TUESDAY, AND TUESDAY. MAY BE ADJUSTED BY COUMADIN CLINIC IN THE FUTURE. 60 tablet 3 05/10/20 25 Active albuterol 108 (90 Base) MCG/ACT inhalerIndications :Mild intermittent asthma without complication Inhale 2 puffs every 4 (four) hours if needed for wheezing or shortness of breath. 18 g 3 06/10/20 25 Active ondansetron ODT (Zofran-ODT) 4 MG disintegrating tablet DISSOLVE 2 TABLETS ON TOP OF THE TONGUE THEN SWALLOW EVERY 12 HOURS 60 tablet 06/10/20 25 Active polyethylene glycol, PEG, 3350 (MiraLax) 17 GM/SCOOP powderIndications: Constipation, unspecified constipation type MIX AND DRINK 17 GM BY MOUTH EVERY DAY IF NEEDED FOR CONSTIPATION 510 g 2 06/10/20 25 Active Active Problems Problem Noted Date Diagnosed [...] weakness 04/28/2023 Overview (04/28/2023): Was seen at [facility] on 08/17/22 with noted nausea, diaphoresis in exam room, discomfort, profound fatigue, referred to [facility] ED now. Went to [facility] ED on 08/18/22 and was admitted for infection and started antibiotics. Blood cultures on 08/18/22 and 08/20/22 grew MSSA. 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 Plan was to transfer [facility]. Transferred to [facility] on 08/21/22 for further management of infective [...] bleed improving Has PT in home through [facility]. 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 Went to [facility] ED on 08/18/22 and was admitted for infection and started antibiotics. Blood cultures on 08/18/22 and 08/20/22 grew MSSA. 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 Plan was to transfer [facility]. Transferred to [facility] on 08/21/22 for further management of infective [...] endocarditis 11/03/2022 Overview (04/28/2023): Was seen at [facility] on 08/17/22 with noted nausea, diaphoresis in exam room, discomfort, profound fatigue, referred to [facility] ED now. Went to [facility] ED on 08/18/22 and was admitted for infection and started antibiotics. Blood cultures on 08/18/22 and 08/20/22 grew MSSA. 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 Plan was to transfer [facility]. Transferred to [facility] on 08/21/22 for further management of infective [...] Encounters Date Type Department Care Team Description 07/12/2025 Orders Only GENERIC EXTERNAL DATA DEPARTMENT Provider, Generic External Data 07/04/2025 Results Follow-Up [address] [address] Mariya Juan MD ~PT, ~INR - ANTI COAG CLINIC, PROTHROMBIN TIME WHOLE BLD POC 07/03/2025 Orders Only GENERIC EXTERNAL DATA DEPARTMENT Provider, Generic External Data 06/10/2025 Results Follow-Up [address] [address] Mariya Juan MD ~PT, ~INR - ANTI COAG CLINIC, PROTHROMBIN TIME WHOLE BLD POC 06/10/2025 Orders Only GENERIC EXTERNAL DATA DEPARTMENT Provider, Generic External Data 06/10/[address] [address] Mariya Juan MD Mild intermittent asthma without complication; Constipation, unspecified constipation type 05/31/2025 Results Follow-Up [address] [address] Mariya Juan MD ~PT, ~INR - ANTI COAG CLINIC, PROTHROMBIN TIME WHOLE BLD POC 05/31/2025 Orders Only GENERIC EXTERNAL DATA DEPARTMENT Provider, Generic External Data 05/17/2025 Orders Only GENERIC EXTERNAL DATA DEPARTMENT Provider, Generic External Data 05/08/2025 [address] [place] [address] Mariya Juan MD Mechanical heart valve present 05/06/2025 Results Follow-Up [facility] [address] [place] [address] Mariya Juan MD ~PT, ~INR - ANTI COAG CLINIC, PROTHROMBIN TIME WHOLE BLD POC 05/06/2025 Orders Only GENERIC EXTERNAL DATA DEPARTMENT Provider, Generic External Data 05/01/2025 Telephone [facility] [address] [facility] [place] [address] Mariya Juan MD recall 04/29/2025 Results Follow-Up [facility] [address] [place] [place] [address] Mariya Juan MD ~PT, ~INR - ANTI COAG CLINIC, PROTHROMBIN TIME WHOLE BLD POC 04/29/2025 Telephone [facility] [address] [facility] [place] [place] [address] Mariya Juan MD Appointment Request 04/29/2025 Orders Only GENERIC EXTERNAL DATA DEPARTMENT Provider, Generic External Data 04/27/2025 Telephone [facility] [address] [facility] [facility] [place] [address] Mariya Juan MD APPT 04/26/2025 Telephone [facility] PEDIATRICS [address] [facility] [address] [facility] [place] [address] Mariya Juan MD critical results 04/26/2025 Orders Only GENERIC EXTERNAL DATA DEPARTMENT Provider, Generic External Data 04/25/2025 Refill [facility] [address] [facility] [place] [address] Bertha Diaz MD Constipation, unspecified constipation type 04/23/2025 Refill [facility] [address] [facility] [address] [facility] [place] [address] Mariya Juan MD 04/19/2025 Results Follow-Up [facility] [address] [place] [place] [address] Mariya Juan MD ~PT, ~INR - ANTI COAG CLINIC, PROTHROMBIN TIME WHOLE BLD POC 04/19/2025 Orders Only GENERIC EXTERNAL DATA DEPARTMENT Provider, Generic External Data 04/12/2025 Results Follow-Up [facility] [address] [place] [address] Mariya Juan MD ~PT, ~INR - ANTI [...] 07/24/2024 MMR 09/14/1990,12/20/1986 OPV, Trivalent 07/18/1989, 7,01/21/1986,09/19 Snoobe Covid-19 Vaccine 12+ Bivalent 04/28/2023 Pneumococcal Conjugate [...] Description 08/09/2025 10:45 AM EDT Office Visit [facility] [address] [place] [address] Mariya Juan MD [address] [place] [address] Health Maintenance Due Date Last Done Comments Disability Screening 1985 Alcohol/Substance Use Screening 1997 Family Planning (PISQ) 2000 HPV Vaccines (1 - Male 3-dose series) 2000 Depression Monitoring 01/21/2025 07/24/2024, 024 COVID-19 Vaccine ( season) 2025 04/28/2023, 03/17/2022, 02/09/2022 Influenza Vaccine (#1) 2025 , 11/10/2020, 11/10/2020, [...] Comments PROTHROMBIN TIME WHOLE BLD POC Routine 07/12/2025 11:37 AM EDT ~PT, ~INR - ANTI COAG CLINIC Routine 07/12/2025 11:37 AM EDT PROTHROMBIN TIME WHOLE BLD POC Routine 07/03/2025 11:32 AM EDT ~PT, ~INR - ANTI COAG CLINIC Routine 07/03/2025 11:32 AM EDT PROTHROMBIN TIME WHOLE BLD POC Routine 06/10/2025 [...] COAG CLINIC Routine 04/12/2025 11:31 AM EDT HEPATITIS C AB W/REFL TO HCV RNA, QN, PCR Routine 09/14/2024 4:32 PM EST Annual physical exam HIV 1/2 ANTIGEN/ANTIBODY, FOURTH GENERATION W/RFL Routine 09/14/2024 4:32 PM EST Annual physical exam LIPID PANEL, STANDARD Routine 09/14/2024 4:23 PM EST Annual physical exam from Last 3 Months or Most Recently Relevant to Health Maintenance Results * (ABNORMAL) PROTHROMBIN TIME WHOLE BLD POC (07/12/2025 11:37 AM EDT) Only the most recent of10 resultswithin the time period is included. Protime 20.3(H) 11.1 - 13.5 sec [facility] 07/12/2025 11:3 7 AM EDT 07/12/2025 11:39 AM EDT Generic External Data Provider LAB BLOOD ORDERAB LES Final Result Performing Organization Address [facility] Co de Phone Number [facility] [address] [place] [address] [phone] * (ABNORMAL) ~PT, ~INR - ANTI COAG CLINIC (07/12/2025 11:37 AM EDT) Only the most recent of10 resultswithin the time period is included. Prothrombin Time INR 1.7(H) 0.9 - 1.1 [facility] Comment:METER #: [id number] TERNATIONAL NORMALIZED RATIO (INR) REFERENCE RANGES Reference RangeFor patients not on anticoagulant therapy: 0.9 - 1.1INR ranges for oral anticoagulanttherapy:For prevention and treatment of venous thrombosis and pulmonary embolism: 2.0 - 3.0For acute myocardial infarction with aspirin therapy: 2.0 - 3.0For acute myocardial infarction without aspirin therapy: 3.0 - 4.0For patients with mechanical prosthetic heart valves: 2.5 - 3.5 07/12/2025 11:3 7 AM EDT 07/12/2025 11:39 AM EDT Pure Focus External Data Provider LAB BLOOD ORDERAB LES Final Result Performing Organization Address [facility] Co de Phone Number [facility] [address] [place] [address] [phone] * Hepatitis C Antibody with Reflex to HCV, RNA, Quantitative, Real-Time PCR (09/14/2024 4:32 PM EST) [facility] Hepatitis C Antibody Nonreactive Nonreactive [facility] Comment:Antibodies to HCV no t detected; does not exclude early acuteHCV infection. Blood Venous blood specimen / Unknown 09/14/2024 4:32 PM EST 09/14/2024 6:05 PM EST us Mariya Cho MD LAB BLOOD ORDERAB LES Final Result Performing Organization Address City/[facility]/ZIP Co de Phone Number [facility] [address] [place] [address] [phone] * HIV-1/2 Antigen and Antibodies, Fourth Generation, with Reflexes (09/14/2024 4:32 PM EST) [facility] HIV AB/AG Nonreactive Nonreactive [facility] Comment:HIV-1 p24 Ag and/or HIV-1/HIV-2 Ab not detected.A test result that is nonreactive does not exclude thepossibility of exposure to or infection with HIV-1 and/orHIV-2. Nonreactive results in this assay for individualswith prior exposure to HIV-1 and/or HIV-2 may be due toantigen and antibody levels that are below the limit ofdetection of this assay.The [employer] HIV Ag/Ab Combo assay result andsupplemental assay [...] Performing Organization Address City/[facility]/ZIP Co de Phone Number [facility] [address] [place] [address] [phone] * (ABNORMAL) Lipid Panel, Standard (09/14/2024 4:23 PM EST) [facility] Triglycerides 194(H) <150 mg/dL [facility] Comment:Desirable Triglyceri de: less than 150 mg/dLBorderline High Triglyceride 150-199 mg/dLHigh Triglyceride: 200-499 mg/dLVery High Triglyceride: greater than or equal to 5OO mg/dL Cholesterol 131 <200 mg/dL [facility] Comment:Desirable Cholestero l: less than 200 mg/dLBorderline High Cholesterol: 200-239 mg/dLHigh Cholesterol: greater than 239 mg/dL LDL Cholesterol Calculated 62 <100 mg/dL [facility] Comment:Desirable LDL: less than 100 mg/dLNear Optimal/Above Optimal LDL: 110- 129 mg/dLBorderline High LDL: 130-159 mg/dLHigh LDL: 160-189 mg/dLVery High LDL: greater than or equal to 190 mg/dL HDL Cholesterol 31(L) >40 mg/dL [facility] Comment:Desirable HDL: great er than 40 mg/dL Note: This HDL assay may give artificially low results in patients with liver disease. Blood Venous blood specimen / Unknown 09/14/2024 4:23 PM EST 09/14/2024 6:05 PM EST Mariya Cho MD LAB BLOOD ORDERAB LES Final Result [facility] [address] [place] [phone] from Last 3 Months or Most Recently Relevant to Health Maintenance Insurance [id number] < 65 [place]NDEZ [id number] Care Teams Photographic Press Screwmaker Relationship Specialty Start Date End Date Mariya Juan MD [address] [place] [phone] PCP - General Internal Medicine 04/28/23
--- OUTSIDE RECORDS SUMMARY | 2025-07-12 12:30 | XMS_ITS | Encounter Summary ---
Author Organization [employer] Address [address] [place] [address] 7 [place] [address] Care Team Providers Care Mortgage Loan Computation Clerk Name Role Phone Mariya Juan MD Primary Care Pro vider Encounter Details Date Type Department Care Team ([facility] st Contact Info) Description 05/31/2025 Results Follow-Up [facility] [address] [place] [address] Mariya Juan MD [address] [place] [address] ~PT, ~INR - ANTI COAG CLINIC, PROTHROMBIN [...] the past 12 months, has t he [employer], gas, oil or water [employer] threatened to shut off services in your [...] Description 08/09/2025 10:45 AM EDT Office Visit [facility] [address] [place] [address] Mariya Juan MD [address] [place] [address] documented as of this encounter Visit Diagnoses Not on filedocumented in this encounter Additional Health Concerns Assessment Noted Time PHQ-9 Depression Total Score: 12 024 2:22 PM EDT documented as of this encounter Care Teams Mortgage Loan Computation Clerk Relationship Specialty Start Date End Date Mariya Juan MD [address] [place] [phone] PCP - General Internal Medicine 04/28/23 documented as of this encounter
--- OUTSIDE RECORDS SUMMARY | 2025-07-12 12:31 | XMS_ITS | Encounter Summary ---
Author Organization [employer] Address [address] [facility] [facility] [address] [place] [address] Care Team Providers Care Sulfuric Acid Plant Operator Name Role Phone Mariya Juan MD Primary Care Pro vider Encounter Details Date Type Department Care Team (Late st Contact Info) Description 07/12/2025 Orders Only GENERIC EXTERNAL DATA [...] Description 08/09/2025 10:45 AM EDT Office Visit [facility] [address] [place] [phone] Mariya Juan MD [address] [place] [address] documented as of this encounter Procedures Procedure Name Priority Date/Time Associated Diagnosis Comments PROTHROMBIN TIME WHOLE BLD POC Routine 07/12/2025 11:37 AM EDT ~PT, ~INR - ANTI COAG CLINIC Routine 07/12/2025 11:37 AM EDT documented in this encounter Results * (ABNORMAL) PROTHROMBIN TIME WHOLE BLD POC (07/12/2025 11:37 AM EDT) Protime 20.3(H) 11.1 - 13.5 sec [facility] 07/12/2025 11:3 7 AM EDT 07/12/2025 11:39 AM EDT us Generic External Data Provider LAB BLOOD ORDERAB LES Final Result [facility] [address] [place] [address] [phone] * (ABNORMAL) ~PT, ~INR - ANTI COAG CLINIC (07/12/2025 11:37 AM EDT) Prothrombin Time INR 1.7(H) 0.9 - 1.1 [facility] Comment:METER #: [id number] TERNATIONAL NORMALIZED RATIO (INR) REFERENCE RANGES Reference [...] 7 AM EDT 07/12/2025 11:39 AM EDT us Generic External Data Provider LAB BLOOD ORDERAB LES Final Result Performing Organization Address [facility] Co de Phone Number [facility] [address] [place] [address] [phone] documented in this encounter Visit Diagnoses Not on filedocumented in this encounter Additional Health Concerns Assessment Noted Time PHQ-9 Depression Total Score: 12 07/24/ 024 2:22 PM EDT documented as of this encounter Care Teams Sulfuric Acid Plant Operator Relationship Specialty Start Date End Date Mariya Juan MD [address] [place] [address] PCP - General Internal Medicine 04/28/23 documented as of this encounter
--- OUTSIDE RECORDS SUMMARY | 2025-07-12 12:31 | XMS_ITS | Encounter Summary ---
Author Organization [employer] Address [address] [place] [address] 7 [place] [address] Care Team Providers Care Cereal Popper Name Role Phone Mariya Juan MD Primary Care Pro vider Encounter Details Date Type Department Care Team ([facility] st Contact Info) Description 07/04/2025 Results Follow-Up [facility] [address] [place] [address] Mariya Juan MD [address] [place] [address] ~PT, ~INR - ANTI COAG CLINIC, PROTHROMBIN [...] Description 08/09/2025 10:45 AM EDT Office Visit [facility] [address] [place] [phone] Mariya Juan MD [address] [place] [phone] documented as of this encounter Visit Diagnoses Not on filedocumented in this encounter Additional Health Concerns Assessment Noted Time PHQ-9 Depression Total Score: 12 024 2:22 PM EDT documented as of this encounter Care Teams Cereal Popper Relationship Specialty Start Date End Date Mariya Juan MD [address] [place] [phone] PCP - General Internal Medicine 04/28/23 documented as of this encounter
--- OUTSIDE RECORDS SUMMARY | 2025-07-12 12:31 | XMS_ITS | Encounter Summary ---
Author Organization [employer] Address [address] [place] [address] [place] [address] Care Team Providers Care Coach Professional Athletes Name Role Phone Mariya Juan MD Primary Care Pro vider Reason for Visit * Reason Onset Date Comments Med Refill 01/08/2025 Encounter Details Date Type Department Care Team ([facility] st Contact Info) Description 01/08/2025 Telephone [facility] [address] [place] [address] Mariya Juan MD [address] [place] [address] Med Refill Social History Tobacco Use Types [...] solution prefilled syringe To be sent to: [id number] [address] [place] [address] AT [facility] documented in this encounter Plan of Treatment Upcoming Encounters Date Type Department Care Team ([facility] st Contact Info) Description 08/09/2025 10:45 AM EDT Office Visit [facility] [address] [place] [address] Mariya Juan MD [address] [place] [address] documented as of this encounter Visit Diagnoses Not on filedocumented in this encounter Additional Health Concerns Assessment Noted Time PHQ-9 Depression Total Score: 12 024 2:22 PM EDT documented as of this encounter Care Teams Coach Professional Athletes Relationship Specialty Start Date End Date Mariya Juan MD [address] [place] [phone] PCP - General Internal Medicine 04/28/23 documented as of this encounter
== END 2025-07-12 12:00 | disposition home or self-care (01) ==
LOC: HO.ACS 11:33
PROVIDERS: PCP Student in an Organized Health Care Education/Training Program; Visit Provider Internal Medicine Medical Oncology
DX: Z79.01 Long term (current) use of anticoagulants (principal)

== ENCOUNTER → 2025-07-12 11:33 | Outpatient (BNVA) | payer OTHER, SELFPAY | PROVIDERS: PCP Student in an Organized Health Care Education/Training Program; Visit Provider Internal Medicine Medical Oncology | DX: Z95.2 Presence of prosthetic heart valve (principal); Z79.01 Long term (current) use of anticoagulants; Z51.81 Encounter for therapeutic drug level monitoring | CPT/HCPCS: 85610; 99211 ==

== ENCOUNTER 2025-07-15 10:29 | Outpatient (AMB) | payer OTHER, SELFPAY ==
[2025-07-15 11:03] LABS: Prothrombin Time Whole Bld POC 32.7 sec (11.1-13.5); ~PT, ~INR - Anti Coag Clinic 2.7 (0.9-1.1)
--- NOTE | 2025-07-15 11:09 | MHC.OFFVISCO ---
Intake Intake Visit Reasons: Anticoagulation Allergies hydrocodone (From VICODIN) Allergy (Unknown, Verified 07/15/25 10:57) GI UPSET Medication List - Last Reconciled 07/15/25 by Grace Mccloud RN acetaminophen 325 mg PO QID PRN 7 days acetaminophen ER (Tylenol Arthritis Pain) 1,300 mg PO Q8H PRN albuterol sulfate 90 mcg/actuation (ProAir HFA) 2 puffs inhalation Q4-6H PRN atorvastatin 20 mg PO DAILY blood pressure test kit-large As directed buprenorphine-naloxone 8-2 mg (Suboxone) 1 film sublingual BID celecoxib (Celebrex) 200 mg PO DAILY PRN coenzyme Q10 (Co Q-10) PO fluticasone propionate 50 mcg/actuation sprays intranasal PRN hydroxyzine pamoate 25 mg PO TID inhalational spacing device ([employer] [facility] spacer) As directed loratadine 10 mg PO DAILY melatonin 5 mg PO BEDTIME PRN omeprazole 20 mg PO DAILY ondansetron 4 mg PO Q8H PRN 4 days ondansetron HCl 4 mg PO Q8H PRN polyethylene glycol 3350 (Miralax) 17 grams PO DAILY sodium chloride 0.65% (Deep Sea Nasal) sprays intranasal warfarin 7.5 mg See Protocol PO 2XW warfarin 10 mg See Protocol PO 5XW Nursing Note INR: 2.7 in therapeutic range- s/p low INR last week from missing doses due to time changes with getting children ready for school Medications and supplements reviewed No changes in health, diet, medications, or supplements, Denies any signs and symptoms of bleeding or bruising or clotting. Bleeding, bruising, clotting discussed Nutritional guidance given Dose: stop lovenox due to bleed hx and resume usual dose 5mg sun tue thur/ 7.5mg x 4 days F/U INR: 11 days 07/26/2025 Patient verbalizes understanding of instructions given Anti-Coag Initial Assessment Social Hx Patient Tobacco Use Status: Former Tobacco user Tobacco use type: Cigarette alcohol intake: never Alcohol intake frequency: does not drink Coding Level of Care Code Est Patient Level 1 Diagnoses Current use of anticoagulant therapy Z79.01 Results AMB INR Fingerstick AMB INR Fingerstick 2.7 Last Edit by Grace Mccloud RN on 07/15/25 11:03 manual entry - delayed interfacing Assessment & Plan Assessment & Plan (1) Current use of anticoagulant therapy: Code(s): Z79.01 - terminal operations supervisor (current) 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
--- OUTSIDE RECORDS SUMMARY | 2025-07-15 12:32 | XMS_ITS | Encounter Summary ---
Author Organization [employer] Address [address] 7[address] [place] [address] Care Team Providers Care Sound Mixer Name Role Phone Mariya Juan MD Primary Care Pro vider Encounter Details Date Type Department Care Team (Late st Contact Info) Description 07/15/2025 Orders Only GENERIC EXTERNAL DATA DEPARTMENT Provider, [...] 10:45 AM EDT Office Visit [facility] [address] [place] [phone] Mariya Juan MD [address] [place] [address] documented as of this encounter Procedures Procedure Name Priority Date/Time Associated Diagnosis Comments PROTHROMBIN TIME WHOLE BLD POC Routine 07/15/2025 11:01 AM EDT ~PT, ~INR - ANTI COAG CLINIC Routine 07/15/2025 11:01 AM EDT documented in this encounter Results * (ABNORMAL) PROTHROMBIN TIME WHOLE BLD POC (07/15/2025 11:01 AM EDT) Protime 32.7(H) 11.1 - 13.5 sec [facility] 07/15/2025 11:0 1 AM EDT 07/15/2025 11:02 AM EDT us Generic External Data Provider LAB BLOOD ORDERAB LES Final Result [facility] [address] [place] [phone] * (ABNORMAL) ~PT, ~INR - ANTI COAG CLINIC (07/15/2025 11:01 AM EDT) Prothrombin Time INR 2.7(H) 0.9 - 1.1 [facility] Comment:METER #: [id number] TERNATIONAL NORMALIZED RATIO (INR) REFERENCE RANGES Reference RangeFor patients not on anticoagulant therapy: 0.9 - 1.1INR ranges for oral anticoagulanttherapy:For prevention and treatment of venous thrombosis and pulmonary embolism: 2.0 - 3.0For acute myocardial infarction with aspirin therapy: 2.0 - 3.0For acute myocardial infarction without aspirin therapy: 3.0 - 4.0For patients with mechanical prosthetic heart valves: 2.5 - 3.5 07/15/2025 11:0 1 AM EDT 07/15/2025 11:02 AM EDT us Generic External Data Provider LAB BLOOD ORDERAB LES Final Result Performing Organization Address [facility] Co de Phone Number [facility] [address] [place] [address] [phone] documented in this encounter Visit Diagnoses Not on filedocumented in this encounter Additional Health Concerns Assessment Noted Time PHQ-9 Depression Total Score: 12 07/24/ 024 2:22 PM EDT documented as of this encounter Care Teams Sound Mixer Relationship Specialty Start Date End Date Mariya Juan MD [address] [place] [address] PCP - General Internal Medicine 04/28/23 documented as of this encounter
--- OUTSIDE RECORDS SUMMARY | 2025-07-15 12:32 | XMS_ITS | Clinical Summary ---
Author Organization [employer] Address [address] 7t [place] [address] Care Team Providers Care Crm Marketing Analyst Name Role Phone Mariya Juan MD [...] 16 g 12 024 Active sodium chloride (Outlook) 0.65 % nasal spray Administer 1 spray [...] before dental procedure 4 capsule 025 Active hydrOXYzine pamoate (Vistaril) 25 MG [...] FOR CONSTIPATION 510 g 2 025 Active Enoxaparin Sodium (Lovenox) 100 MG/ML solution prefilled syringeIndication s:Hx of prosthetic mitral valve Inject 1 mL (100 mg) under the skin 2 times daily. lovenox to be given if INR is 2.0 or less and can be stopped once INR is 2.5 or more 6 mL 2 Active Enoxaparin Sodium (Lovenox) 100 MG/ML solution prefilled syringeIndication s:Hx of prosthetic mitral valve Inject 1 mL (100 mg) under the skin 2 times daily. lovenox to be given if INR is 2.0 or less and can be stopped once INR is 2.5 or more 6 mL 025 2024 Discontinued(R eorder (will not trigger [...] weakness 04/28/2023 Overview (04/28/2023): Was seen at [facility] on 08/17/22 with noted nausea, diaphoresis in exam room, discomfort, profound fatigue, referred to [facility] now. Went to [facility] on 08/18/22 and was admitted for infection and started antibiotics. Blood cultures on 08/18/22 and 08/20/22 grew MSSA. 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 Plan was to transfer [facility]. [facility] [facility] [...] improving Has PT in home through [facility]. 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 on 08/17/22 with noted nausea, diaphoresis in exam room, discomfort, profound fatigue, referred to [facility] now. Went to [facility] on 08/18/22 and was admitted for infection and started antibiotics. Blood cultures on 08/18/22 and 08/20/22 grew MSSA. 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 Plan was to transfer [facility]. Transferred [place] [facility] [...] endocarditis 11/03/2022 Overview (04/28/2023): Was seen at [facility] on 08/17/22 with noted nausea, diaphoresis in exam room, discomfort, profound fatigue, referred to [facility] now. Went to [facility] on 08/18/22 and was admitted for infection and started antibiotics. Blood cultures on 08/18/22 and 08/20/22 grew MSSA. 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 Plan was to transfer [facility]. Transferred [place] [facility] [...] Encounters Date Type Department Care Team Description 07/15/2025 Orders Only GENERIC EXTERNAL DATA DEPARTMENT Provider, Generic External Data 07/12/2025 Results Follow-Up [facility] [address] [place] [address] Mariya Juan MD ~PT, ~INR - ANTI COAG CLINIC, PROTHROMBIN TIME WHOLE BLD POC 07/12/2025 Orders Only [facility] [address] [facility] [place] [address] Mariya Juan MD Hx of prosthetic mitral valve 07/12/2025 Telephone [facility] [address] [facility] [place] [phone] Mariya Juan MD Critical INR 07/12/2025 Orders Only GENERIC EXTERNAL DATA DEPARTMENT Provider, Generic External Data 07/04/2025 Results Follow-Up [facility] [address] [place], [place] [phone] Mariya Juan MD ~PT, ~INR - ANTI COAG CLINIC, PROTHROMBIN TIME WHOLE BLD POC 07/03/2025 Orders Only GENERIC EXTERNAL DATA DEPARTMENT Provider, Generic External Data 06/10/2025 Results Follow-Up [facility] [address] [place] [address] Mariya Juan MD ~PT, ~INR - ANTI COAG CLINIC, PROTHROMBIN TIME WHOLE BLD POC 06/10/2025 Orders Only GENERIC EXTERNAL DATA DEPARTMENT Provider, Generic External Data 06/10/2025 Refill [facility] [address] [place] [address] Mariya Juan MD Mild intermittent asthma without complication; Constipation, unspecified constipation type 05/31/2025 Results Follow-Up [facility] [address] [place] [address] Mariya Juan MD ~PT, ~INR - ANTI COAG CLINIC, PROTHROMBIN TIME WHOLE BLD POC 05/31/2025 Orders Only GENERIC EXTERNAL DATA DEPARTMENT Provider, Generic External Data 05/17/2025 Orders Only GENERIC EXTERNAL DATA DEPARTMENT Provider, Generic External Data 05/08/[address] [address] Mariya Juan MD Mechanical heart valve present 05/06/2025 Results Follow-Up [address] [address] Mariya Juan MD ~PT, ~INR - ANTI COAG CLINIC, PROTHROMBIN TIME WHOLE BLD POC 05/06/2025 Orders Only GENERIC EXTERNAL DATA DEPARTMENT Provider, Generic External Data 05/01/[address] [address] Mariya Juan MD recall 04/29/2025 Results Follow-Up [address] [address] Mariya Juan MD ~PT, ~INR - ANTI COAG CLINIC, PROTHROMBIN TIME WHOLE BLD POC 04/29/[address] [address] Mariya Juan MD Appointment Request 04/29/2025 Orders Only GENERIC EXTERNAL DATA DEPARTMENT Provider, Generic External Data 04/27/2025 Telephone [facility] [address] [place] [address] Mariya Juan MD APPT 04/26/2025 Telephone [facility] [address] [place] [address] Mariya Juan MD critical results 04/26/2025 Orders Only GENERIC EXTERNAL DATA DEPARTMENT Provider, Generic External Data 04/25/2025 Refill [facility] [address] [place] [address] Bertha Diaz MD Constipation, unspecified constipation type 04/23/2025 Refill [facility] [address] [place] [address] Mariya Juan MD 04/19/2025 Results Follow-Up [facility] [address] [place], [place] [phone] Mariya Juan MD ~PT, ~INR - ANTI COAG CLINIC, PROTHROMBIN TIME WHOLE BLD POC 04/19/2025 Orders Only GENERIC EXTERNAL DATA DEPARTMENT Provider, Generic External Data from Last 3 Months Immunizations Immunization Administration Dates Next Due DTaP 07/18/1989, 7,12/20/1986,11/19 Hep B, Adolescent or Pediatric 12/10/1998,1997,1998 Hib ([facility]) 10/20/1987 Influenza injectable quadriv alent IIV4 [...] Description 08/09/2025 10:45 AM EDT Office Visit [facility] [address] [place], [place] [phone] Mariya Juan MD [address] [place] [address] Health Maintenance Due Date Last Done Comments [...] COAG CLINIC Routine 07/15/2025 11:01 AM EDT PROTHROMBIN TIME WHOLE BLD POC Routine 07/12/2025 [...] COAG CLINIC Routine 04/19/2025 11:57 AM EDT HEPATITIS C AB W/REFL TO [...] WHOLE BLD POC (07/15/2025 11:01 AM EDT) Only the most recent of10 resultswithin the time period is included. Protime 32.7(H) 11.1 - 13.5 sec [facility] 07/15/2025 11:0 1 AM EDT 07/15/2025 11:02 AM EDT us Generic External Data Provider LAB BLOOD ORDERAB LES Final Result [facility] [address] [place] [phone] * (ABNORMAL) ~PT, ~INR - ANTI COAG CLINIC (07/15/2025 11:01 AM EDT) Only the most recent of10 resultswithin the time period is included. Prothrombin Time INR 2.7(H) 0.9 - 1.1 [facility] Comment:METER #: [id number] TERNATIONAL NORMALIZED RATIO (INR) REFERENCE RANGES Reference [...] ORDERAB LES Final Result Performing Organization Address [facility] Co de Phone Number [facility] [address] [place] [phone] * Hepatitis C Antibody with Reflex to HCV, RNA, Quantitative, Real-Time PCR (09/14/2024 4:32 PM EST) Hepatitis C Antibody Nonreactive Nonreactive [facility] Comment:Antibodies to HCV no t detected; does not exclude early acuteHCV infection. Blood Venous blood specimen / Unknown 09/14/2024 4:32 PM EST 09/14/2024 6:05 PM EST us Mariya Cho MD LAB BLOOD ORDERAB LES Final Result Performing Organization Address [facility] Co de Phone Number [facility] [address] [place] [phone] * HIV-1/2 Antigen and Antibodies, Fourth Generation, with Reflexes (09/14/2024 4:32 PM EST) HIV AB/AG Nonreactive Nonreactive [facility] Comment:HIV-1 p24 Ag and/or HIV-1/HIV-2 Ab not detected.A test result that is nonreactive does not exclude thepossibility of exposure to or infection with HIV-1 and/orHIV-2. Nonreactive results in this assay for individualswith prior exposure to HIV-1 and/or HIV-2 may be due toantigen and antibody levels that are below the limit ofdetection of this assay.The [employer] HIV Ag/Ab Combo assay result andsupplemental assay results should be interpreted inconjunction with the patient's clinical presentation,history and other laboratory results. If the results areinconsistent with clinical evidence, additional testing issuggested to confirm the result. Blood Venous blood specimen / Unknown 09/14/2024 4:32 PM EST 09/14/2024 6:05 PM EST Mariya Cho MD LAB BLOOD ORDERAB LES Final Result Performing Organization Address [facility] Co de Phone Number [facility] [address] [place] [phone] * (ABNORMAL) Lipid Panel, Standard (09/14/2024 4:23 PM EST) Triglycerides 194(H) <150 mg/dL [facility] Comment:Desirable Triglyceri de: less than 150 mg/dLBorderline High Triglyceride 150-199 mg/dLHigh Triglyceride: 200-499 mg/dLVery High Triglyceride: greater than or equal to 5OO mg/dL Cholesterol 131 <200 mg/dL [facility] Comment:Desirable Cholestero l: less than 200 mg/dLBorderline High Cholesterol: 200-239 mg/dLHigh Cholesterol: greater than 239 mg/dL LDL Cholesterol Calculated 62 <100 mg/dL [facility] Comment:Desirable LDL: less than 100 mg/dLNear Optimal/Above Optimal LDL: 110- 129 mg/dLBorderline High LDL: 130-159 mg/dLHigh LDL: 160-189 mg/dLVery High LDL: greater than or equal to 190 mg/dL HDL Cholesterol 31(L) >40 mg/dL [facility] Comment:Desirable HDL: great er than 40 mg/dL Note: This HDL assay may give artificially low results in patients with liver disease. Blood Venous blood specimen / Unknown 09/14/2024 4:23 PM EST 09/14/2024 6:05 PM EST us Mariya Cho MD LAB BLOOD ORDERAB LES Final Result Performing Organization Address [facility]/ZIP Co de Phone Number [facility] [address] [place] [phone] from Last 3 Months or Most Recently Relevant to Health Maintenance Insurance [employer] < 65 [place] [id number] Care Teams Crm Marketing Analyst Relationship Specialty Start Date End Date Mariya Juan MD [address] [place] [phone] PCP - General Internal Medicine 04/28/23
--- OUTSIDE RECORDS SUMMARY | 2025-07-15 12:32 | XMS_ITS | Encounter Summary ---
Author Organization [employer] Address [address] [place] [address] [place] [address] Care Team Providers Care Health And Safety Inspector Name Role Phone Mariya Juan MD Primary Care Pro vider Reason for Visit * Reason Onset Date Comments Critical INR 07/12/2025 Encounter Details Date Type Department Care Team ([facility] st Contact Info) Description 07/12/2025 Telephone [facility] [address] [place] [address] Mariya Juan MD [address] [place] [address] Critical INR Social History Tobacco Use Types Packs/Day Years [...] the past 12 months, has t he [place], gas, oil or water [employer] threatened to shut off services in your [...] encounter Miscellaneous Notes * Telephone Encounter - Sheree Hunter RN - 07/12/2025 3:22 PM EDT Telephone call to pt to advise lovenox sent, no answer, left voicemail to call back [facility]. * Telephone Encounter - lEisa Vasquez RN - 07/12/2025 1:13 PM EDT Incoming call from Freida ,at the [facility] Coumadin [facility] . Freida reports the pt's INR 1.7 today . Freidastates the pt's target range is 2.5 to 3.5 . States the pt reported missing 5 doses . Pt was restarted on his previous Lovenox dose twice a day today per the Coumadin clinic protocol . Pt's Coumadin was increased by 5 mg to 10 mg today . Pt is to take 7.5 mg on Tuesday , and Tuesday and an INR redraw on Tuesday . A warm hand of was given to Sheree FERNÁNDEZ . Will route this message to the pt's PCP ,and the green team nurses for review. documented in this encounter Plan of Treatment Upcoming Encounters Date Type Department Care Team (Late st Contact Info) Description 08/09/2025 10:45 AM EDT Office Visit [facility] [address] [place] [address] Mariya Juan MD [address] [place] [phone] documented as of this encounter Visit Diagnoses Not on filedocumented in this encounter Additional Health Concerns Assessment Noted Time PHQ-9 Depression Total Score: 12 024 2:22 PM EDT documented as of this encounter Care Teams Health And Safety Inspector Relationship Specialty Start Date End Date Mariya Juan MD [address] [place] [phone] PCP - General Internal Medicine 04/28/23 documented as of this encounter
--- OUTSIDE RECORDS SUMMARY | 2025-07-15 12:32 | XMS_ITS | Encounter Summary ---
Author Organization [employer] Address [address] [facility] 7t [place] [address] Care Team Providers Care Commercial Glazier Name Role Phone Mariya Juan MD Primary Care Pro vider Reason for Visit * Reason Comments Med Refill Encounter Details Date Type Department Care Team (Late st Contact Info) Description 05/23/2023 Refill [facility] [address] [place], [place] [phone] Kay Dennis FNP Social History Tobacco Use [...] Description 08/09/2025 10:45 AM EDT Office Visit [facility] [address] [place], [place] [phone] Mariya Juan MD [address] [place], [place] [phone] documented as of this encounter Visit Diagnoses Not on filedocumented in this encounter Additional Health Concerns Assessment Noted Time PHQ-9 Depression Total Score: 6 04/28/20 2:32 PM EDT documented as of this encounter Care Teams Commercial Glazier Relationship Specialty Start Date End Date Mariya Juan MD [address] [place] [address] PCP - General Internal Medicine 04/28/23 documented as of this encounter
--- OUTSIDE RECORDS SUMMARY | 2025-07-15 12:32 | XMS_ITS | Encounter Summary ---
Author Organization [employer] Address [address] [place] [address] 7 [place] [address] Care Team Providers Care Relief Salesperson Name Role Phone [facility] Primary Care Provider Mariya Lombardi MD Primary Care Pro vider Encounter Details Date Type Department Care Team (Late Contact Info) Description 12/16/2022 Orders Only [facility] [address] [place] [address] [phone] Aida Villegas LPN Social History Tobacco Use [...] Description 08/09/2025 10:45 AM EDT Office Visit [facility] [address] [place] [phone] Mariya Juan MD [address] [place] [address] [phone] documented as of this encounter Procedures Procedure Name Priority Date/Time Associated Diagnosis Comments PROTHROMBIN TIME WHOLE BLD POC Routine 12/16/2022 2:35 PM EST ~PT, ~INR - ANTI COAG CLINIC Routine 12/16/2022 2:35 PM EST documented in this encounter Results * (ABNORMAL) PROTHROMBIN TIME WHOLE BLD POC (12/16/2022 2:35 PM EST) Protime 45.7(H) 11.1 - 13.5 sec [facility] 12/16/2022 2:35 PM EST 12/16/2022 2:36 PM EST [facility] External Provider LAB BLO OD ORDERABLES Final Result Performing Organization Address [facility] de Phone Number [facility] [address] [place] [phone] * (ABNORMAL) ~PT, ~INR - ANTI COAG CLINIC (12/16/2022 2:35 PM EST) Prothrombin Time INR 3.8(H) 0.9 - 1.1 [facility] Comment:METER #: [id number] TERNATIONAL NORMALIZED RATIO (INR) REFERENCE RANGES Reference [...] 2:35 PM EST 12/16/2022 2:36 PM EST [facility] External Provider LAB BLO OD ORDERABLES Final Result Performing Organization Address [facility] de Phone Number [facility] [address] [place] [phone] documented in this encounter Visit Diagnoses Not on filedocumented in this encounter Care Teams Relief Salesperson Relationship Specialty Start Date End Date Kay Dennis FNP PCP - General Family Medicine 07/05/22 04/27/23 Mariya Juan MD [address] [place] [address] PCP - General Internal Medicine 04/28/23 documented as of this encounter
--- OUTSIDE RECORDS SUMMARY | 2025-07-15 12:32 | XMS_ITS | Encounter Summary ---
Author Organization [employer] Address [address] [place] [address] 7 [place] [address] Care Team Providers Care Ballet Company Member Name Role Phone Mariya Juan MD Primary Care Pro vider Encounter Details Date Type Department Care Team ([facility] st Contact Info) Description 07/12/2025 Results Follow-Up [facility] [address] [place] [address] Mariya Juan MD [address] [place] [address] ~PT, ~INR - ANTI COAG CLINIC, PROTHROMBIN [...] the past 12 months, has t he [employer], gas, oil or water [employer] threatened to shut off services in your [...] Encounter Note - Mariya Cho MD - 07/12/2025 3:38 PM EDT Pt f at coumadin clinic -Pt range goal 2.5-3.5. -as documented already, pt f at coumadin clinic documented in this encounter Plan of Treatment Upcoming Encounters Date Type Department Care Team (Late st Contact Info) Description 08/09/2025 10:45 AM EDT Office Visit [facility] [address] [place] [address] Mariya Juan MD [address] [place], [place] [phone] documented as of this encounter Visit Diagnoses Not on filedocumented in this encounter Additional Health Concerns Assessment Noted Time PHQ-9 Depression Total Score: 12 024 2:22 PM EDT documented as of this encounter Care Teams Ballet Company Member Relationship Specialty Start Date End Date Mariya Juan MD [address] [place] [phone] PCP - General Internal Medicine 04/28/23 documented as of this encounter
--- OUTSIDE RECORDS SUMMARY | 2025-07-15 12:32 | XMS_ITS | Encounter Summary ---
Author Organization [employer] Address [address] [place] [address] [place] [address] Care Team Providers Care Hip Hop Artist Name Role Phone Mariya Juan MD Primary Care Pro vider Reason for Visit * Reason Onset Date Comments Med Refill 04/20/2024 Encounter Details Date Type Department Care Team ([facility] st Contact Info) Description 04/20/2024 Telephone [facility] [address] [place], [place] [phone] Mariya Juan MD [address] [place] [address] Med Refill Social History Tobacco Use Types [...] EDT Telephone call placed to Freida at [facility] Coumadin clinic. Gave orders to continue lovenox [...] EDT Received call from Freida from [facility] coumadin [facility]. Pt back today for recheck, [...] 4:01 PM EDT TC placed to [facility] Anticoagulation to inquire when pt last got INR drawn. According to the office receptionist the pt was to come for [...] solution prefilled syringe To be sent to: [id number] [address] [facility] documented in this encounter Plan of Treatment Upcoming Encounters Date Type Department Care Team (Late st Contact Info) Description 08/09/2025 10:45 AM EDT Office Visit [facility] [address] [place] [phone] Mariya Juan MD [address] [place] [phone] documented as of this encounter Visit Diagnoses Not on filedocumented in this encounter Additional Health Concerns Assessment Noted Time PHQ-9 Depression Total Score: 6 04/28/20 23 2:32 PM EDT documented as of this encounter Care Teams Hip Hop Artist Relationship Specialty Start Date End Date Mariya Juan MD [address] [place] [phone] PCP - General Internal Medicine 04/28/23 documented as of this encounter
--- OUTSIDE RECORDS SUMMARY | 2025-07-15 12:32 | XMS_ITS | Clinical Summary ---
Author Organization [facility] Address [address] [place] [address] Phone Care Team Providers Care Supervisor Rubber Covering Name Role Phone Sharon Baum MD Primary Care Provider [phone] Allergies No known active allergies Medications Buprenorphine [...] to 49 Years) Completed 04/28/2023, 02/17/[address] [place] [address] ([id number]) [facility] ([id number]) [place] [id number] Care Teams Supervisor Rubber Covering Relationship Specialty Start Date End Date Sharon Baum MD [address] [place] [phone] PCP - General Internal Medicine 10/20/22
--- OUTSIDE RECORDS SUMMARY | 2025-07-15 12:32 | XMS_ITS | Encounter Summary ---
Author Organization [employer] Address 75 [facility] 7t [place] [address] Care Team Providers Care Fire Control Officer Name Role Phone Kay Dennis AUTOMATIC GLOVE FORMER Primary Care Provider Mariya Lombardi MD Primary Care Pro vider Reason for Visit * Reason Onset Date Comments Durable Medical Equipment 02/25/2023 Encounter Details Date Type Department Care Team (Late st Contact Info) Description 02/25/2023 Telephone [facility] MED[facility]INE 230 [place] [address] Kay Dennis, AUTOMATIC GLOVE FORMER Durable Medical Equipment Social History Tobacco Use [...] long ago. Please sent to script Victor If any questions please contact Tammy at [phone] documented in this encounter Plan of Treatment Upcoming Encounters Date Type Department Care Team (Late st Contact Info) Description 08/09/2025 10:45 AM EDT Office Visit [facility] MED[facility]INE [address] [place] [phone] Mariya Juan MD [address] [place] [address] [phone] documented as of this encounter Visit Diagnoses Not on filedocumented in this encounter Care Teams Fire Control Officer Relationship Specialty Start Date End Date Kay Dennis FNP PCP - General Family Medicine 07/05/22 04/27/23 Mariya Juan MD [address] [place] [address] [phone] PCP - General Internal Medicine 04/28/23 documented as of this encounter
--- OUTSIDE RECORDS SUMMARY | 2025-07-15 12:32 | XMS_ITS | Encounter Summary ---
Author Organization [employer] Address 75 [facility] 7t [place] [address] Care Team Providers Care Sample Examiner Name Role Phone Mariya Juan MD Primary Care Pro vider Encounter Details Date Type Department Care Team ([facility] st Contact Info) Description 07/12/2025 Orders Only [facility] MEDICINE 230 [place], [place] [phone] Mariya Juan MD 230 [place] [address] Hx of prosthetic mitral valve Social History Tobacco Use Types Packs/Day Years Used Date Smoking Tobacco: Former Cigarettes Q uit: 08/23/2022 Passive Smoke Exposure: Never Smokeless Tobacco: Never Comments:Started smoking tob acco 16 y of age and stopped at his 2 at his 37 y of age -smoked [...] 10:45 AM EDT Office Visit [facility] MEDICINE [address] [place] [address] [phone] Mariya Juan MD 230 [place] [address] documented as of this encounter Visit Diagnoses Diagnosis Hx of prosthetic mitral valve documented in this encounter Additional Health Concerns Assessment Noted Time PHQ-9 Depression Total Score: 12 024 2:22 PM EDT documented as of this encounter Care Teams Sample Examiner Relationship Specialty Start Date End Date Mariya Juan MD [address] [place] [address] [phone] PCP - General Internal Medicine 04/28/23 documented as of this encounter
--- OUTSIDE RECORDS SUMMARY | 2025-07-15 12:32 | XMS_ITS | Encounter Summary ---
Author Organization [employer] Address 75 [facility] 7t [place] [address] Care Team Providers Care Sheriff'S Sergeant Name Role Phone Mariya Juan MD Primary Care Pro vider Reason for Visit * Reason Comments Med Refill Encounter Details Date Type Department Care Team ([facility] st Contact Info) Description 04/25/2025 Refill [facility] MEDICINE 230 [place], [place] [phone] Bertha Diaz MD 230 [place], [place] [phone] Constipation, unspecified constipation type Social History Tobacco [...] Description 08/09/2025 10:45 AM EDT Office Visit [facility]INE [address] [place] [phone] Mariya Juan MD [address] [place] [phone] documented as of this encounter Visit Diagnoses Diagnosis Constipation, unspecified constipation type documented in this encounter Additional Health Concerns Assessment Noted Time PHQ-9 Depression Total Score: 12 024 2:22 PM EDT documented as of this encounter Care Teams Sheriff'S Sergeant Relationship Specialty Start Date End Date Mariya Juan MD [address] [place] [phone] PCP - General Internal Medicine 04/28/23 documented as of this encounter
--- OUTSIDE RECORDS SUMMARY | 2025-07-15 12:33 | XMS_ITS | Encounter Summary ---
Author Organization [employer] Address [address] [place] [address] [place] [address] Care Team Providers Care Solar Maintenance Technician Name Role Phone Mariya Juan MD Primary Care Pro vider Reason for Visit * Reason Onset Date Comments Med Refill 01/08/2025 Encounter Details Date Type Department Care Team ([facility] st Contact Info) Description 01/08/2025 Telephone [facility] MED[facility]INE 230 [place] [address] Mariya Juan MD 230 [place] [address] Med Refill Social History Tobacco Use Types [...] solution prefilled syringe To be sent to: [facility][id number] [facility] [address] [place] [address] AT [facility] documented in this encounter Plan of Treatment Upcoming Encounters Date Type Department Care Team ([facility] st Contact Info) Description 08/09/2025 10:45 AM EDT Office Visit [facility] MED[facility]INE [address] [place] [address] Mariya Juan MD 230 [place] [address] documented as of this encounter Visit Diagnoses Not on filedocumented in this encounter Additional Health Concerns Assessment Noted Time PHQ-9 Depression Total Score: 12 024 2:22 PM EDT documented as of this encounter Care Teams Solar Maintenance Technician Relationship Specialty Start Date End Date Mariya Juan MD [address] [place] [phone] PCP - General Internal Medicine 04/28/23 documented as of this encounter
--- OUTSIDE RECORDS SUMMARY | 2025-07-15 12:33 | XMS_ITS | Encounter Summary ---
Author Organization [employer] Address [address] [place] [address] 7 [place] [address] Care Team Providers Care Tin Flopper Name Role Phone Mariya Juan MD Primary Care Pro vider Encounter Details Date Type Department Care Team ([facility] st Contact Info) Description 05/31/2025 Results Follow-Up [facility] MEDICINE 230 [place] [address] Mariya Juan MD 230 [place] [address] ~PT, ~INR - ANTI COAG CLINIC, PROTHROMBIN [...] the past 12 months, has t he [employer], gas, oil or water [employer] threatened to shut off services in [...] Description 08/09/2025 10:45 AM EDT Office Visit [facility] MED[facility]INE [address] [place] [address] Mariya Juan MD 230 [place] [address] documented as of this encounter Visit Diagnoses Not on filedocumented in this encounter Additional Health Concerns Assessment Noted Time PHQ-9 Depression Total Score: 12 024 2:22 PM EDT documented as of this encounter Care Teams Tin Flopper Relationship Specialty Start Date End Date Mariya Juan MD [address] [place] [phone] PCP - General Internal Medicine 04/28/23 documented as of this encounter
--- OUTSIDE RECORDS SUMMARY | 2025-07-15 12:33 | XMS_ITS | Encounter Summary ---
Author Organization [employer] Address [address] [place] [address] 7 [place] [address] Care Team Providers Care Spectral Scientist Name Role Phone Mariya Juan MD Primary Care Pro vider Encounter Details Date Type Department Care Team ([facility] st Contact Info) Description 06/10/2025 Results Follow-Up [facility] MEDICINE 230 [place] [address] Mariya Juan MD 230 [place] [address] ~PT, ~INR - ANTI COAG CLINIC, PROTHROMBIN [...] the past 12 months, has t he [employer], gas, oil or water [employer] threatened to shut off services in your [...] Description 08/09/2025 10:45 AM EDT Office Visit [facility] MEDICINE [address] [place] [address] Mariya Juan MD 230 [place] [address] documented as of this encounter Visit Diagnoses Not on filedocumented in this encounter Additional Health Concerns Assessment Noted Time PHQ-9 Depression Total Score: 12 024 2:22 PM EDT documented as of this encounter Care Teams Spectral Scientist Relationship Specialty Start Date End Date Mariya Juan MD [address] [place] [phone] PCP - General Internal Medicine 04/28/23 documented as of this encounter
--- OUTSIDE RECORDS SUMMARY | 2025-07-15 12:33 | XMS_ITS | Encounter Summary ---
Author Organization [employer] Address [address] [place] [address] 7 [place] [address] Care Team Providers Care Production Superintendent Hydro Name Role Phone Mariya Juan MD Primary Care Pro vider Encounter Details Date Type Department Care Team ([facility] st Contact Info) Description 07/04/2025 Results Follow-Up [facility] MEDICINE 230 [place] [address] Mariya Juan MD 230 [place] [address] ~PT, ~INR - ANTI COAG CLINIC, PROTHROMBIN [...] AM EDT Office Visit [facility] MEDICINE [address] [place] [phone] Mariya Juan MD [address] [place] [phone] documented as of this encounter Visit Diagnoses Not on filedocumented in this encounter Additional Health Concerns Assessment Noted Time PHQ-9 Depression Total Score: 12 024 2:22 PM EDT documented as of this encounter Care Teams Production Superintendent Hydro Relationship Specialty Start Date End Date Mariya Juan MD [address] [place] [phone] PCP - General Internal Medicine 04/28/23 documented as of this encounter
--- OUTSIDE RECORDS SUMMARY | 2025-07-15 12:33 | XMS_ITS | Encounter Summary ---
Author Organization [employer] Address [address] [facility] [address] 7t [place] [address] Care Team Providers Care Success Coach Name Role Phone Mariya Juan MD Primary [...] Description 08/09/2025 10:45 AM EDT Office Visit [facility] MEDICINE [address] [place] [address] Mariya Juan MD 230 [place] [address] documented as of this encounter Procedures Procedure Name Priority Date/Time Associated Diagnosis Comments PROTHROMBIN TIME WHOLE BLD POC Routine 07/12/2025 11:37 AM EDT ~PT, ~INR - ANTI COAG CLINIC Routine 07/12/2025 11:37 AM EDT documented in this encounter Results * (ABNORMAL) PROTHROMBIN TIME WHOLE BLD POC (07/12/2025 11:37 AM EDT) Protime 20.3(H) 11.1 - 13.5 sec [facility] 07/12/2025 11:3 7 AM EDT 07/12/2025 11:39 AM EDT us Generic External Data Provider LAB BLOOD ORDERAB LES Final Result [facility] [address] [place] [address] [phone] * (ABNORMAL) ~PT, ~INR - ANTI COAG CLINIC (07/12/2025 11:37 AM EDT) Prothrombin Time INR 1.7(H) 0.9 - 1.1 [facility] Comment:METER #: [id number] TERNATIONAL NORMALIZED RATIO (INR) REFERENCE RANGES Reference [...] ORDERAB LES Final Result Performing Organization Address [facility] [[email or web address]] Co de Phone Number [facility] [address] [place] [address] [phone] documented in this encounter Visit Diagnoses Not on filedocumented in this encounter Additional Health Concerns Assessment Noted Time PHQ-9 Depression Total Score: 12 07/24/ 024 2:22 PM EDT documented as of this encounter Care Teams Success Coach Relationship Specialty Start Date End Date Mariya Juan MD 230 [place] [address] PCP - General Internal Medicine 04/28/23 documented as of this encounter
== END 2025-07-15 11:13 | disposition home or self-care (01) ==
LOC: HO.ACS 10:29
PROVIDERS: PCP Student in an Organized Health Care Education/Training Program; Visit Provider Internal Medicine Medical Oncology
DX: Z79.01 Long term (current) use of anticoagulants (principal)

== ENCOUNTER → 2025-07-15 10:29 | Outpatient (BNVA) | payer OTHER, SELFPAY | PROVIDERS: PCP Student in an Organized Health Care Education/Training Program; Visit Provider Internal Medicine Medical Oncology | DX: Z95.2 Presence of prosthetic heart valve (principal); Z79.01 Long term (current) use of anticoagulants; Z51.81 Encounter for therapeutic drug level monitoring | CPT/HCPCS: 85610; 99211 ==

== ENCOUNTER 2025-07-26 11:08 | Outpatient (AMB) | payer OTHER, SELFPAY ==
[2025-07-26 11:21] LABS: Prothrombin Time Whole Bld POC 43.7 sec (11.1-13.5); ~PT, ~INR - Anti Coag Clinic 3.6 (0.9-1.1)
--- NOTE | 2025-07-26 11:26 | MHC.OFFVISCO ---
Intake Intake Visit Reasons: Anticoagulation Allergies hydrocodone (From VICODIN) Allergy (Unknown, Verified 07/26/25 11:15) GI UPSET Medication List - Last Reconciled 07/26/25 by Grace Mccloud RN acetaminophen 325 mg PO QID PRN 7 days acetaminophen ER (Tylenol Arthritis Pain) 1,300 mg PO Q8H PRN albuterol sulfate 90 mcg/actuation (ProAir HFA) 2 puffs inhalation Q4-6H PRN atorvastatin 20 mg PO DAILY blood pressure test kit-large As directed buprenorphine-naloxone 8-2 mg (Suboxone) 1 film sublingual BID celecoxib (Celebrex) 200 mg PO DAILY PRN coenzyme Q10 (Co Q-10) PO fluticasone propionate 50 mcg/actuation sprays intranasal PRN hydroxyzine pamoate 25 mg PO TID inhalational spacing device ([facility] spacer) As directed loratadine 10 mg PO DAILY melatonin 5 mg PO BEDTIME PRN omeprazole 20 mg PO DAILY ondansetron 4 mg PO Q8H PRN 4 days ondansetron HCl 4 mg PO Q8H PRN polyethylene glycol 3350 (Miralax) 17 grams PO DAILY sodium chloride 0.65% (Deep Sea Nasal) sprays intranasal warfarin 7.5 mg See Protocol PO 2XW warfarin 10 mg See Protocol PO 5XW Nursing Note INR: 3.6 (therapeutic range 2.5-3.5) Medications and supplements reviewed No changes in health, diet, medications, or supplements, Denies any signs and symptoms of bleeding or bruising or clotting. Bleeding, bruising, clotting discussed Nutritional guidance given - Have greens today or tomorrow to help keep INR in range lowering INR just a llittle bit to keep you safe from bleeding Dose: keep same dose for now 5mg x 3 days/ 7.5mg x 4 days F/U INR: 2 weeks Patient verbalizes understanding of instructions given Anti-Coag Initial Assessment Social Hx Patient Tobacco Use Status: Former Tobacco user Tobacco use type: Cigarette alcohol intake: never Alcohol intake frequency: does not drink Coding Level of Care Code Est Patient Level 1 Diagnoses Current use of anticoagulant therapy Z79.01 Assessment & Plan Assessment & Plan (1) Current use of anticoagulant therapy: Code(s): Z79.01 - snf (current) 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
--- OUTSIDE RECORDS SUMMARY | 2025-07-26 11:53 | XMS_ITS | Encounter Summary ---
Author Organization [employer] Address [address] [place] [address] [place] [address] Care Team Providers Care Rotary Filter Operator Name Role Phone Mariya Juan MD Primary Care Pro vider Reason for Visit * Reason Onset Date Comments Med Refill 04/20/2024 Encounter Details Date Type Department Care Team ([facility] st Contact Info) Description 04/20/2024 Telephone [facility] MEDICINE 230 [place], [place] [phone] Mariya Juan MD 230 [place] [address] Med Refill Social History Tobacco Use Types [...] EDT Telephone call placed to Freida at [facility] Coumadin clinic. Gave orders to continue [...] PM EDT Received call from Freida from [facility]. Pt back today for recheck, [...] 04/20/2024 4:01 PM EDT TC placed to [facility]ticoagulation to inquire when pt last got INR drawn. According to the batter scaler the pt was to come for a [...] solution prefilled syringe To be sent to: [facility][id number] [facility] [address] [facility] documented in this encounter Plan of Treatment Upcoming Encounters Date Type Department Care Team (Late st Contact Info) Description 08/09/2025 10:45 AM EDT Office Visit [facility] MEDICINE [address] [place] [address] Mariya Juan MD [address] [place] [address] documented as of this encounter Visit Diagnoses Not on filedocumented in this encounter Additional Health Concerns Assessment Noted Time PHQ-9 Depression Total Score: 6 04/28/20 23 2:32 PM EDT documented as of this encounter Care Teams Rotary Filter Operator Relationship Specialty Start Date End Date Mariya Juan MD [address] [place] [phone] PCP - General Internal Medicine 04/28/23 documented as of this encounter
--- OUTSIDE RECORDS SUMMARY | 2025-07-26 11:53 | XMS_ITS | Encounter Summary ---
Author Organization [employer] Address 75 [facility] 7t [place] [address] Care Team Providers Care Quality Assurance Consultant Name Role Phone Kay Dennis WEB USER EXPERIENCE STRATEGIST Primary Care Provider Mariya Lombardi MD Primary Care Pro vider Reason for Visit * Reason Onset Date Comments Durable Medical Equipment 02/25/2023 Encounter Details Date Type Department Care Team (Late st Contact Info) Description 02/25/2023 Telephone [facility] MEDICINE [address] [place] [address] Kay Dennis, WEB USER EXPERIENCE STRATEGIST Durable Medical Equipment Social History Tobacco Use [...] long ago. Please sent to script [email or web address] If any questions please contact Tammy at [phone] documented in this encounter Plan of Treatment Upcoming Encounters Date Type Department Care Team (Late st Contact Info) Description 08/09/2025 10:45 AM EDT Office Visit [facility] MEDICINE [address] [place] [address] Mariya Juan MD [address] [place] [address] [phone] documented as of this encounter Visit Diagnoses Not on filedocumented in this encounter Care Teams Quality Assurance Consultant Relationship Specialty Start Date End Date Kay Dennis FNP PCP - General Family Medicine 07/05/22 04/27/23 Mariya Juan MD [address] [place] [address] [phone] PCP - General Internal Medicine 04/28/23 documented as of this encounter
--- OUTSIDE RECORDS SUMMARY | 2025-07-26 11:53 | XMS_ITS | Encounter Summary ---
Author Organization [employer] Address 75 [facility] 7t [place] [address] Care Team Providers Care Manual Arts Therapy Teacher Name Role Phone Mariya Juan MD Primary Care Pro vider Reason for Visit * Reason Comments Med Refill Encounter Details Date Type Department Care Team (Late st Contact Info) Description 05/23/2023 Refill [facility] MEDICINE 230 [place], [place] [phone] Kay Dennis FNP Social History Tobacco Use [...] Description 08/09/2025 10:45 AM EDT Office Visit [facility] MEDICINE 230 [place], [place] [phone] Mariya Juan MD 230 [place], [place] [phone] documented as of this encounter Visit Diagnoses Not on filedocumented in this encounter Additional Health Concerns Assessment Noted Time PHQ-9 Depression Total Score: 6 04/28/20 2:32 PM EDT documented as of this encounter Care Teams Manual Arts Therapy Teacher Relationship Specialty Start Date End Date Mariya Juan MD [address] [place] [address] PCP - General Internal Medicine 04/28/23 documented as of this encounter
--- OUTSIDE RECORDS SUMMARY | 2025-07-26 11:53 | XMS_ITS | Encounter Summary ---
Author Organization [employer] Address 75 [facility] 7t [place] [address] Care Team Providers Care Cancer Researcher Name Role Phone Mariya Juan MD Primary Care Pro vider Reason for Visit * Reason Comments Med Refill Encounter Details Date Type Department Care Team ([facility] st Contact Info) Description 04/25/2025 Refill [facility] MEDICINE 230 [place], [place] [phone] Bertha Diaz MD 230 [place], [place] [phone] Constipation, unspecified constipation type Social History Tobacco [...] Description 08/09/2025 10:45 AM EDT Office Visit [facility] MEDICINE [address] [place] [phone] Mariya Juan MD [address] [place] [phone] documented as of this encounter Visit Diagnoses Diagnosis Constipation, unspecified constipation type documented in this encounter Additional Health Concerns Assessment Noted Time PHQ-9 Depression Total Score: 12 024 2:22 PM EDT documented as of this encounter Care Teams Cancer Researcher Relationship Specialty Start Date End Date Mariya Juan MD [address] [place] [phone] PCP - General Internal Medicine 04/28/23 documented as of this encounter
--- OUTSIDE RECORDS SUMMARY | 2025-07-26 11:53 | XMS_ITS | Clinical Summary ---
Author Organization [facility] Address [address] [facility] [address] [place] [address] Phone Care Team Providers Care File Conversion Operator Name Role Phone Sharon Baum MD Primary Care Provider [phone] Allergies No known active allergies Medications Buprenorphine [...] to 49 Years) Completed 04/28/2023, 02/17/[address] [place] [address] ([id number]) [facility] ([id number]) DENIS ERNANDEZ [phone] Care Teams File Conversion Operator Relationship Specialty Start Date End Date Sharon Baum MD [address] [place] [phone] PCP - General Internal Medicine 10/20/22
--- OUTSIDE RECORDS SUMMARY | 2025-07-26 11:53 | XMS_ITS | Clinical Summary ---
Author Organization [employer] Address [address] [facility] 7t [place] [address] Care Team Providers Care Shrimp Boat Captain Name Role Phone Mariya Juan MD Primary [...] replace cap. 16 g 12 024 Active atorvastatin (Lipitor) 20 MG tabletIndications [...] is 2.5 or more 6 mL 2 025 Active sodium chloride ([place]) 0.65 % nasal spray Administer 1 spray into each nostril if needed for congestion. 15 mL 2 024 2024 Enoxaparin Sodium (Lovenox) 100 MG/ML [...] weakness 04/28/2023 Overview (04/28/2023): Was seen at [facility] on 08/17/22 with noted nausea, diaphoresis in exam room, discomfort, profound fatigue, referred to [facility] ED now. Went to [facility] ED on 08/18/22 and was admitted for infection and started antibiotics. Blood cultures on 08/18/22 and 08/20/22 grew MSSA. 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 Plan was to transfer [facility]. Transferred to [facility] on 08/21/22 for further [...] bleed improving Has PT in home through [facility]. 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 Went to [facility] ED on 08/18/22 and was admitted for infection and started antibiotics. Blood cultures on 08/18/22 and 08/20/22 grew MSSA. 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 Plan was to transfer [facility]. Transferred to [facility] on 08/21/22 for further [...] endocarditis 11/03/2022 Overview (04/28/2023): Was seen at [facility] on 08/17/22 with noted nausea, diaphoresis in exam room, discomfort, profound fatigue, referred to [facility] ED now. Went to [facility] ED on 08/18/22 and was admitted for infection and started antibiotics. Blood cultures on 08/18/22 and 08/20/22 grew MSSA. 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 Plan was to transfer [facility]. Transferred to [facility] on 08/21/22 for further [...] Encounters Date Type Department Care Team Description 07/26/2025 Orders Only GENERIC EXTERNAL DATA DEPARTMENT Provider, Generic External Data 07/15/2025 Results Follow-Up [facility] [address] [place] [phone] Mariya Juan MD ~PT, ~INR - ANTI COAG CLINIC, PROTHROMBIN TIME WHOLE BLD POC 07/15/2025 Orders Only GENERIC EXTERNAL DATA DEPARTMENT Provider, Generic External Data 07/12/2025 Results Follow-Up [facility] [address] [place] [address] Mariya Juan MD ~PT, ~INR - ANTI COAG CLINIC, PROTHROMBIN TIME WHOLE BLD POC 07/12/2025 Orders Only [facility] [address] [place] [address] Mariya Juan MD Hx of prosthetic mitral valve 07/12/2025 Telephone [facility] [address] [place] [address] Mariya Juan MD Critical INR 07/12/2025 Orders Only GENERIC EXTERNAL DATA DEPARTMENT Provider, Generic External Data 07/04/2025 Results Follow-Up [facility] [address] [facility] [place] [address] Mariya Juan MD ~PT, ~INR - ANTI COAG CLINIC, PROTHROMBIN TIME WHOLE BLD POC 07/03/2025 Orders Only GENERIC EXTERNAL DATA DEPARTMENT Provider, Generic External Data 06/10/2025 Results Follow-Up [facility] [address] [place] [address] Mariya Juan MD ~PT, ~INR - ANTI COAG CLINIC, PROTHROMBIN TIME WHOLE BLD POC 06/10/2025 Orders Only GENERIC EXTERNAL DATA DEPARTMENT Provider, Generic External Data 06/10/2025 Refill [facility] [address] [place] [address] Mariya Juan MD Mild intermittent asthma without complication; Constipation, unspecified constipation type 05/31/2025 Results Follow-Up [facility] [address] [place] [address] Mariya Juan MD ~PT, ~INR - ANTI COAG CLINIC, PROTHROMBIN TIME WHOLE BLD POC 05/31/2025 Orders Only GENERIC EXTERNAL DATA DEPARTMENT Provider, Generic External Data 05/17/2025 Orders Only GENERIC EXTERNAL DATA DEPARTMENT Provider, Generic External Data 05/08/2025 Refill [facility] [address] [place] [address] Mariya Juan MD Mechanical heart valve present 05/06/2025 Results Follow-Up [facility] [address] [place] [address] Mariya Juan MD ~PT, ~INR - ANTI COAG CLINIC, PROTHROMBIN TIME WHOLE BLD POC 05/06/2025 Orders Only GENERIC EXTERNAL DATA DEPARTMENT Provider, Generic External Data 05/01/2025 Telephone [facility] [address] [place] [address] Mariya Juan MD recall 04/29/2025 Results Follow-Up [facility] [address] [place] [address] Mariya Juan MD ~PT, ~INR - ANTI COAG CLINIC, PROTHROMBIN TIME WHOLE BLD POC 04/29/2025 Telephone [facility] [address] [place] [address] Mariya Juan MD Appointment Request 04/29/2025 Orders Only GENERIC EXTERNAL DATA DEPARTMENT Provider, Generic External Data 04/27/2025 Telephone [facility] [address] [place] [address] Mariya Juan MD APPT 04/26/2025 Telephone [facility] [address] [place] [address] Mariya Juan MD critical results 04/26/2025 Orders Only GENERIC EXTERNAL DATA DEPARTMENT Provider, Generic External Data 04/25/2025 Refill [facility] [address] [place] [address] Bertha Diaz MD Constipation, unspecified constipation type from Last 3 Months Immunizations Immunization Administration Dates Next Due DTaP 07/18/1989, 7,12/20/1986,11/19 Hep B, Adolescent or Pediatric 12/10/1998,1997,1998 Hib ([facility]) 10/20/1987 Influenza injectable quadriv alent [...] Description 08/09/2025 10:45 AM EDT Office Visit [facility] [address] [place] [address] [phone] Mariya Juan MD [address] [place], [place] [phone] Health Maintenance Due Date Last Done Comments [...] Comments PROTHROMBIN TIME WHOLE BLD POC Routine 07/26/2025 11:19 AM EDT ~PT, ~INR - ANTI COAG CLINIC Routine 07/26/2025 11:19 AM EDT PROTHROMBIN TIME WHOLE BLD POC Routine 07/15/2025 [...] COAG CLINIC Routine 04/26/2025 1:27 PM EDT HEPATITIS C AB W/REFL TO HCV RNA, QN, PCR Routine 09/14/2024 4:32 PM EST Annual physical exam HIV 1/2 ANTIGEN/ANTIBODY, FOURTH GENERATION W/RFL Routine 09/14/2024 4:32 PM EST Annual physical exam LIPID PANEL, STANDARD Routine 09/14/2024 4:23 PM EST Annual physical exam from Last 3 Months or Most Recently Relevant to Health Maintenance Results * (ABNORMAL) PROTHROMBIN TIME WHOLE BLD POC (07/26/2025 11:19 AM EDT) Only the most recent of10 resultswithin the time period is included. Protime 43.7(H) 11.1 - 13.5 sec [facility] 07/26/2025 11:1 9 AM EDT 07/26/2025 11:21 AM EDT us Generic External Data Provider LAB BLOOD ORDERAB LES Final Result [facility] [address] [place] [phone] * (ABNORMAL) ~PT, ~INR - ANTI COAG CLINIC (07/26/2025 11:19 AM EDT) Only the most recent of10 resultswithin the time period is included. Prothrombin Time INR 3.6(H) 0.9 - 1.1 [facility] Comment:METER #: [id number] TERNATIONAL NORMALIZED RATIO (INR) REFERENCE RANGES Reference RangeFor patients not on anticoagulant therapy: 0.9 - 1.1INR ranges for oral anticoagulanttherapy:For prevention and treatment of venous thrombosis and pulmonary embolism: 2.0 - 3.0For acute myocardial infarction with aspirin therapy: 2.0 - 3.0For acute myocardial infarction without aspirin therapy: 3.0 - 4.0For patients with mechanical prosthetic heart valves: 2.5 - 3.5 07/26/2025 11:1 9 AM EDT 07/26/2025 11:21 AM EDT us Generic External Data Provider LAB BLOOD ORDERAB LES Final Result Performing Organization Address [facility]/ZIP Co de Phone Number [facility] [address] [place] [phone] * Hepatitis C Antibody with Reflex to HCV, RNA, Quantitative, Real-Time PCR (09/14/2024 4:32 PM EST) Hepatitis C Antibody Nonreactive Nonreactive [facility] Comment:Antibodies to HCV no t detected; does not exclude early acuteHCV infection. Blood Venous blood specimen / Unknown 09/14/2024 4:32 PM EST 09/14/2024 6:05 PM EST us Mariya Cho MD LAB BLOOD ORDERAB LES Final Result Performing Organization Address [facility] Co de Phone Number [facility] [address] [place] [phone] * HIV-1/2 Antigen and Antibodies, Fourth Generation, with Reflexes (09/14/2024 4:32 PM EST) HIV AB/AG Nonreactive Nonreactive [facility] Comment:HIV-1 p24 Ag and/or HIV-1/HIV-2 Ab not detected.A test result that is nonreactive does not exclude thepossibility of exposure to or infection with HIV-1 and/orHIV-2. Nonreactive results in this assay for individualswith prior exposure to HIV-1 and/or HIV-2 may be due toantigen and antibody levels that are below the limit ofdetection of this assay.[employer] HIV Ag/Ab Combo assay result andsupplemental assay [...] Result Performing Organization Address [facility] Co de Phone Number [facility] [address] [place] [phone] * (ABNORMAL) Lipid Panel, Standard (09/14/2024 4:23 PM EST) Triglycerides 194(H) <150 mg/dL [facility] Comment:Desirable Triglyceri de: less than 150 mg/dLBorderline High Triglyceride 150-199 mg/dLHigh Triglyceride: 200-499 mg/dLVery High Triglyceride: greater than or equal to 5OO mg/dL Cholesterol 131 <200 mg/dL [facility] Comment:Desirable Cholestero l: less than 200 mg/dLBorderline High Cholesterol: 200-239 mg/dLHigh Cholesterol: greater than 239 mg/dL LDL Cholesterol Calculated 62 <100 mg/dL [facility] Comment:Desirable LDL: less than 100 mg/dLNear Optimal/Above Optimal LDL: 110- 129 mg/dLBorderline High LDL: 130-159 mg/dLHigh LDL: 160-189 mg/dLVery High LDL: greater than or equal to 190 mg/dL HDL Cholesterol 31(L) >40 mg/dL [facility] Comment:Desirable HDL: great er than 40 mg/dL Note: This HDL assay may give artificially low results in patients with liver disease. Blood Venous blood specimen / Unknown 09/14/2024 4:23 PM EST 09/14/2024 6:05 PM EST Mariya Cho MD LAB BLOOD ORDERAB LES Final Result Performing Organization Address [facility]/ZIP Co de Phone Number [facility] [address] [place] [phone] from Last 3 Months or Most Recently Relevant to Health Maintenance Insurance [employer] < 65 DENIS ERNANDEZ [id number] Care Teams Shrimp Boat Captain Relationship Specialty Start Date End Date Mariya Juan MD [address] [place] [phone] PCP - General Internal Medicine 04/28/23
--- OUTSIDE RECORDS SUMMARY | 2025-07-26 11:54 | XMS_ITS | Encounter Summary ---
Author Organization [employer] Address [address] [place] [address] 7 [place] [address] Care Team Providers Care Manager Traffic Name Role Phone Mariya Juan MD Primary Care Pro vider Encounter Details Date Type Department Care Team ([facility] st Contact Info) Description 07/04/2025 Results Follow-Up [facility] [address] [place] [address] Mariya Juan MD [address] [place] [address] ~PT, ~INR - ANTI COAG CLINIC, PROTHROMBIN [...] Description 08/09/2025 10:45 AM EDT Office Visit [facility] [address] [place] [phone] Mariya Juan MD [address] [place] [phone] documented as of this encounter Visit Diagnoses Not on filedocumented in this encounter Additional Health Concerns Assessment Noted Time PHQ-9 Depression Total Score: 12 024 2:22 PM EDT documented as of this encounter Care Teams Manager Traffic Relationship Specialty Start Date End Date Mariya Juan MD [address] [place] [phone] PCP - General Internal Medicine 04/28/23 documented as of this encounter
--- OUTSIDE RECORDS SUMMARY | 2025-07-26 11:54 | XMS_ITS | Encounter Summary ---
Author Organization [employer] Address [address] 7t [place] [address] Care Team Providers Care Jewel Bearing Maker Name Role Phone Mariya Juan MD Primary Care Pro vider Encounter Details Date Type Department Care Team (Late st Contact Info) Description 07/26/2025 Orders Only GENERIC EXTERNAL DATA [...] 10:45 AM EDT Office Visit [facility] [address] [place] [phone] Mariya Juan MD [address] [place] [address] documented as of this encounter Procedures Procedure Name Priority Date/Time Associated Diagnosis Comments PROTHROMBIN TIME WHOLE BLD POC Routine 07/26/2025 11:19 AM EDT ~PT, ~INR - ANTI COAG CLINIC Routine 07/26/2025 11:19 AM EDT documented in this encounter Results * (ABNORMAL) PROTHROMBIN TIME WHOLE BLD POC (07/26/2025 11:19 AM EDT) Protime 43.7(H) 11.1 - 13.5 sec [facility] 07/26/2025 11:1 9 AM EDT 07/26/2025 11:21 AM EDT us Generic External Data Provider LAB BLOOD ORDERAB LES Final Result [facility] [address] [place] [phone] * (ABNORMAL) ~PT, ~INR - ANTI COAG CLINIC (07/26/2025 11:19 AM EDT) Prothrombin Time INR 3.6(H) 0.9 - 1.1 [facility] Comment:METER #: [id number] TERNATIONAL NORMALIZED RATIO (INR) REFERENCE RANGES Reference [...] ORDERAB LES Final Result Performing Organization Address [facility] Co de Phone Number [facility] [address] [place] [phone] documented in this encounter Visit Diagnoses Not on filedocumented in this encounter Additional Health Concerns Assessment Noted Time PHQ-9 Depression Total Score: 12 024 2:22 PM EDT documented as of this encounter Care Teams Jewel Bearing Maker Relationship Specialty Start Date End Date Mariya Juan MD [address] [place] [address] PCP - General Internal Medicine 04/28/23 documented as of this encounter
--- OUTSIDE RECORDS SUMMARY | 2025-07-26 11:54 | XMS_ITS | Encounter Summary ---
Author Organization [employer] Address [address] [place] [address] 7 [place] [address] Care Team Providers Care Commodities Broker Name Role Phone Mariya Juan MD Primary Care Pro vider Encounter Details Date Type Department Care Team ([facility] st Contact Info) Description 07/15/2025 Results Follow-Up [facility] [address] [place] [address] Mariya Juan MD [address] [place] [address] ~PT, ~INR - ANTI COAG CLINIC, PROTHROMBIN [...] your housing situation today? I have nancy nifante 07/24/[address] you li [...] the past 12 months, has t he [employer], gas, oil or water [employer] threatened to shut off services in your [...] Encounter Note - Mariya Cho MD - 07/15/2025 3:50 PM EDT Pt f at coumadin clinic -Pt range goal 2.5-3.5. documented in this encounter Plan of Treatment Upcoming Encounters Date Type Department Care Team (Late st Contact Info) Description 08/09/2025 10:45 AM EDT Office Visit [facility] [address] [place] [phone] Mariya Juan MD [address] [place] [address] documented as of this encounter Visit Diagnoses Not on filedocumented in this encounter Additional Health Concerns Assessment Noted Time PHQ-9 Depression Total Score: 12 024 2:22 PM EDT documented as of this encounter Care Teams Commodities Broker Relationship Specialty Start Date End Date Mariya Juan MD [address] [place] [phone] PCP - General Internal Medicine 04/28/23 documented as of this encounter
--- OUTSIDE RECORDS SUMMARY | 2025-07-26 11:54 | XMS_ITS | Encounter Summary ---
Author Organization [employer] Address [address] [place] [address] 7 [place] [address] Care Team Providers Care Diet Counselor Name Role Phone Mariya Juan MD Primary Care Pro vider Encounter Details Date Type Department Care Team ([facility] st Contact Info) Description 06/10/2025 Results Follow-Up [facility] [address] [place] [address] Mariya Juan MD [address] [place] [address] ~PT, ~INR - ANTI COAG CLINIC, PROTHROMBIN [...] the past 12 months, has t he [employer], gas, oil or water [employer] threatened to shut off services in your [...] 08/09/2025 10:45 AM EDT Office Visit [facility] [address] [place] [address] Mariya Juan MD [address] [place] [address] documented as of this encounter Visit Diagnoses Not on filedocumented in this encounter Additional Health Concerns Assessment Noted Time PHQ-9 Depression Total Score: 12 024 2:22 PM EDT documented as of this encounter Care Teams Diet Counselor Relationship Specialty Start Date End Date Mariya Juan MD [address] [place] [phone] PCP - General Internal Medicine 04/28/23 documented as of this encounter
--- OUTSIDE RECORDS SUMMARY | 2025-07-26 11:54 | XMS_ITS | Encounter Summary ---
Author Organization [employer] Address [address] [place] [address] [place] [address] Care Team Providers Care Residential Tech Name Role Phone Mariya Juan MD Primary Care Pro vider Reason for Visit * Reason Onset Date Comments Med Refill 01/08/2025 Encounter Details Date Type Department Care Team ([facility] st Contact Info) Description 01/08/2025 Telephone [facility] [address] [place] [address] Mariya Juan MD [address] [place] [address] Med Refill Social History Tobacco Use Types [...] your housing situation today? I have nancy infanet 07/24/[address] you li [...] solution prefilled syringe To be sent to: [id number] [address] [place] [address] AT [facility] documented in this encounter Plan of Treatment Upcoming Encounters Date Type Department Care Team ([facility] st Contact Info) Description 08/09/2025 10:45 AM EDT Office Visit [facility] [address] [place] [address] Mariya Juan MD [address] [place] [address] documented as of this encounter Visit Diagnoses Not on filedocumented in this encounter Additional Health Concerns Assessment Noted Time PHQ-9 Depression Total Score: 12 024 2:22 PM EDT documented as of this encounter Care Teams Residential Tech Relationship Specialty Start Date End Date Mariya Juan MD [address] [place] [phone] PCP - General Internal Medicine 04/28/23 documented as of this encounter
--- OUTSIDE RECORDS SUMMARY | 2025-07-26 11:54 | XMS_ITS | Encounter Summary ---
Author Organization [employer] Address [address] [place] [address] 7 [place] [address] Care Team Providers Care Software Qa Manager Name Role Phone SonnyKay [facility] Primary Care Provider Mariya Lombardi MD Primary Care Pro vider Encounter Details Date Type Department Care Team (Late Contact Info) Description 12/16/2022 Orders Only [facility] MEDICINE [address] [place] [address] [phone] Aida Villegas LPN Social History Tobacco Use [...] Office Visit [facility] [address] [place] [address] Mariya Juan MD [address] [place] [phone] documented as of this encounter Procedures Procedure Name Priority Date/Time Associated Diagnosis Comments PROTHROMBIN TIME WHOLE BLD POC Routine 12/16/2022 2:35 PM EST ~PT, ~INR - ANTI COAG CLINIC Routine 12/16/2022 2:35 PM EST documented in this encounter Results * (ABNORMAL) PROTHROMBIN TIME WHOLE BLD POC (12/16/2022 2:35 PM EST) Protime 45.7(H) 11.1 - 13.5 sec [facility] 12/16/2022 2:35 PM EST 12/16/2022 2:36 PM EST [facility] External Provider LAB BLO OD ORDERABLES Final Result Performing Organization Address [facility] de Phone Number [facility] [address] [place] [phone] * (ABNORMAL) ~PT, ~INR - ANTI COAG CLINIC (12/16/2022 2:35 PM EST) Prothrombin Time INR 3.8(H) 0.9 - 1.1 [facility] Comment:METER #: [id number] TERNATIONAL NORMALIZED RATIO (INR) REFERENCE RANGES Reference [...] 2:35 PM EST 12/16/2022 2:36 PM EST [facility] External Provider LAB BLO OD ORDERABLES Final Result Performing Organization Address [facility] de Phone Number [facility] [address] [place] [phone] documented in this encounter Visit Diagnoses Not on filedocumented in this encounter Care Teams Software Qa Manager Relationship Specialty Start Date End Date Kay Dennis FNP PCP - General Family Medicine 07/05/22 04/27/23 Mariya Juan MD [address] [place] [address] PCP - General Internal Medicine 04/28/23 documented as of this encounter
--- OUTSIDE RECORDS SUMMARY | 2025-07-26 11:54 | XMS_ITS | Encounter Summary ---
Author Organization [employer] Address [address] [place] [address] 7 [place] [address] Care Team Providers Care Sample Washer Name Role Phone Mariya Juan MD Primary Care Pro vider Encounter Details Date Type Department Care Team ([facility] st Contact Info) Description 07/12/2025 Results Follow-Up [facility] [address] [place] [address] Mariya Juan MD [address] [place] [address] ~PT, ~INR - ANTI COAG CLINIC, PROTHROMBIN [...] the past 12 months, has t he [employer], gas, oil or water [employer] threatened to shut off services in your [...] EDT Office Visit [facility] [address] [place] [address] Mariya Juan MD [address] [place], [place] [phone] documented as of this encounter Visit Diagnoses Not on filedocumented in this encounter Additional Health Concerns Assessment Noted Time PHQ-9 Depression Total Score: 12 024 2:22 PM EDT documented as of this encounter Care Teams Sample Washer Relationship Specialty Start Date End Date Mariya Juan MD [address] [place] [phone] PCP - General Internal Medicine 04/28/23 documented as of this encounter
--- OUTSIDE RECORDS SUMMARY | 2025-07-26 11:54 | XMS_ITS | Encounter Summary ---
Author Organization [employer] Address [address] [place] [address] 7 [place] [address] Care Team Providers Care Child Care Director Name Role Phone Mariya Juan MD Primary Care Pro vider Encounter Details Date Type Department Care Team ([facility] st Contact Info) Description 05/31/2025 Results Follow-Up [facility]INE [address] [place] [address] Mariya Juan MD [address] [place] [address] ~PT, ~INR - ANTI COAG CLINIC, PROTHROMBIN [...] the past 12 months, has t he [employer], gas, oil or water [employer] threatened to shut off services in your [...] Description 08/09/2025 10:45 AM EDT Office Visit [facility] MED[facility] [address] [place] [address] Mariya Juan MD [address] [place] [address] documented as of this encounter Visit Diagnoses Not on filedocumented in this encounter Additional Health Concerns Assessment Noted Time PHQ-9 Depression Total Score: 12 024 2:22 PM EDT documented as of this encounter Care Teams Child Care Director Relationship Specialty Start Date End Date Mariya Juan MD [address] [place] [phone] PCP - General Internal Medicine 04/28/23 documented as of this encounter
== END 2025-07-26 11:28 | disposition home or self-care (01) ==
LOC: HO.ACS 11:08
PROVIDERS: PCP Student in an Organized Health Care Education/Training Program; Visit Provider Internal Medicine Medical Oncology
DX: Z79.01 Long term (current) use of anticoagulants (principal)

== ENCOUNTER → 2025-07-26 11:08 | Outpatient (BNVA) | payer OTHER, SELFPAY | PROVIDERS: PCP Student in an Organized Health Care Education/Training Program; Visit Provider Internal Medicine Medical Oncology | DX: Z95.2 Presence of prosthetic heart valve (principal); Z79.01 Long term (current) use of anticoagulants; Z51.81 Encounter for therapeutic drug level monitoring | CPT/HCPCS: 85610; 99211 ==

== ENCOUNTER 2025-08-16 09:55 | Outpatient (AMB) | payer OTHER, SELFPAY ==
[2025-08-16 10:02] LABS: Prothrombin Time Whole Bld POC 47.1 sec (11.1-13.5); ~PT, ~INR - Anti Coag Clinic 3.9 (0.9-1.1)
--- NOTE | 2025-08-16 10:08 | MHC.OFFVISCO ---
Intake Intake Visit Reasons: Anticoagulation Allergies hydrocodone (From VICODIN) Allergy (Unknown, Verified 08/16/25 09:56) GI UPSET Medication List - Last Reconciled 08/16/25 by Trinh Giron RN acetaminophen 325 mg PO QID PRN 7 days acetaminophen ER (Tylenol Arthritis Pain) 1,300 mg PO Q8H PRN albuterol sulfate 90 mcg/actuation (ProAir HFA) 2 puffs inhalation Q4-6H PRN atorvastatin 20 mg PO DAILY blood pressure test kit-large As directed buprenorphine-naloxone 8-2 mg (Suboxone) 1 film sublingual BID celecoxib (Celebrex) 200 mg PO DAILY PRN coenzyme Q10 (Co Q-10) PO fluticasone propionate 50 mcg/actuation sprays intranasal PRN hydroxyzine pamoate 25 mg PO TID inhalational spacing device ([employer] spacer) As directed loratadine 10 mg PO DAILY melatonin 5 mg PO BEDTIME PRN omeprazole 20 mg PO DAILY ondansetron 4 mg PO Q8H PRN 4 days ondansetron HCl 4 mg PO Q8H PRN polyethylene glycol 3350 (Miralax) 17 grams PO DAILY sodium chloride 0.65% (Deep Sea Nasal) sprays intranasal warfarin 7.5 mg See Protocol PO 2XW warfarin 10 mg See Protocol PO 5XW Nursing Note NO CP,SOB,DIET/MED CHANGES,FALLS OR SX OF BLEEDING. CONTINUE PRESENT DOSE AND FOLLOW-UP IN 2 WEEKS. WILL BE SURE TO HAVE GREENS TODAY AND 2-3X WEEKLY. GOOD UNDERSTANDING OF DOSING INSTR. Anti-Coag Initial Assessment Social Hx Patient Tobacco Use Status: Former Tobacco user Tobacco use type: Cigarette alcohol intake: never Alcohol intake frequency: does not drink Coding Level of Care Code Est Patient Level 1 Diagnoses Current use of anticoagulant therapy Z79.01 Assessment & Plan Assessment & Plan (1) Current use of anticoagulant therapy: Code(s): Z79.01 - senior living (current) 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
--- OUTSIDE RECORDS SUMMARY | 2025-08-16 10:47 | XMS_ITS | Encounter Summary ---
Author Organization [employer] Address 75 [facility] 7t [place] [address] Care Team Providers Care Towboat Engineer Name Role Phone Mariya Juan MD Primary Care Pro vider Reason for Visit * Reason Comments Med Refill Encounter Details Date Type Department Care Team (Late st Contact Info) Description 05/23/2023 Refill [facility] [address] [place], [place] [phone] Kay Dennis FNP Social History Tobacco Use [...] Care Team (Late st Contact Info) Description 10/22/2025 9:00 AM EST Nutrition [facility] DIABETES/NUTRITION [address] [place], [place] [phone] Amena Fu, SAMMI [address] [place] [address] 10/22/2025 11:15 AM EST Office Visit [facility] [address] [place] [address] Mariya Juan MD 230 [place] [address] 12/09/2025 10:30 AM EST Office Visit [facility] [address] [place], [place] [phone] Ernestina Gayle, OD [address] [place], [place] [phone] documented as of this encounter Visit Diagnoses Not on filedocumented in this encounter Additional Health Concerns Assessment Noted Time PHQ-9 Depression Total Score: 6 04/28/20 23 2:32 PM EDT documented as of this encounter Care Teams Towboat Engineer Relationship Specialty Start Date End Date Mariya Juan MD [address] [place], [place] [phone] PCP - General Internal Medicine 04/28/23 documented as of this encounter
--- OUTSIDE RECORDS SUMMARY | 2025-08-16 10:47 | XMS_ITS | Encounter Summary ---
Author Organization [employer] Address 75 [facility] 7t [place] [address] Care Team Providers Care Interpretive Naturalist Name Role Phone Mariya Juan MD Primary Care Pro vider Reason for Visit * Reason Comments Med Refill Encounter Details Date Type Department Care Team ([facility] st Contact Info) Description 04/25/2025 Refill [facility] 230 [place], [place] [phone] Berhta Diaz MD 230 [place], [place] [phone] Constipation, unspecified constipation type Social History Tobacco [...] the past 12 months, has t he [employer], gas, oil or water company threatened to [...] Info) Description 10/22/2025 9:00 AM EST Nutrition [facility] DIABETES/NUTRITION [address] [place] [address] Amena Fu, RD 230 [place] [address] 10/22/2025 11:15 AM EST Office Visit [facility] [address] [place] [phone] Mariya Juan MD 230 [place] [address] 12/09/2025 10:30 AM EST Office Visit [facility] [address] [place] [address] Ernestina Gayle, OD [address] [place] [address] documented as of this encounter Visit Diagnoses Diagnosis Constipation, unspecified constipation type documented in this encounter Additional Health Concerns Assessment Noted Time PHQ-9 Depression Total Score: 12 024 2:22 PM EDT documented as of this encounter Care Teams Interpretive Naturalist Relationship Specialty Start Date End Date Mariya Juan MD [address] [place] [phone] PCP - General Internal Medicine 04/28/23 documented as of this encounter
--- OUTSIDE RECORDS SUMMARY | 2025-08-16 10:48 | XMS_ITS | Encounter Summary ---
Author Organization [employer] Address [address] [facility] [address] 7t [place] [address] Care Team Providers Care Propulsion Engineer Name Role Phone Mariya Juan MD Primary Care Pro vider Encounter Details Date Type Department Care Team (Late st Contact Info) Description 08/16/2025 Orders Only GENERIC EXTERNAL DATA DEPARTMENT Provider, Generic External Data Social History Tobacco Use Types Packs/Day Years Used Date Smoking Tobacco: Former Cigarettes Q uit: 08/23/2022 Passive Smoke Exposure: Never Smokeless Tobacco: Former Comments:Started smoking tob acco 16 y of age and stopped at his 2021 at his 37 y of age -smoked for 21 years , used to smoke 3-4 cig a day max 7-10 day Alcohol Use Standard Drinks/Week Comments Not Currently 0 (1 standard drink = 0.6 oz pur e alcohol) Depression Answer Date Recorded Patient Health Questionnaire-9 Score 14 08/09/2025 Patient Health Questionnaire-9 Score 14 08/09/2025 Last PHQ-9: Questionnaire Data Not on file 1 Housing Stability Answer Date Recorded What is your housing situation today? I have nancy infante 08/09/[address] you li ve. Do you have problems with any of the following? Inadequate heat 08/09/2025 Food Insecurity Answer Date Recorded Within the past 12 months, y ou worried that your food would run out before you got money to buy more: Sometimes True 2024 Within the past 12 months,th e food you bought just didn't last and you didn't have enough money to get more: Sometimes True 08/09/2025 Transportation Answer Date Recorded In the past 12 months, has l ack of transportation kept you from medical appts, meetings, work or from getting things needed for daily living? No 08/09/2025 Utilities Answer Date Recorded In the past 12 months, has t he electric, gas, oil or water company threatened to shut off services in your home? No 08/09/2025 Depression Answer Date Recorded Patient Health Questionnaire-2 Score 4 08/09/2025 Internet Access Answer Date Recorded Internet Access Q1 Yes 08/09/2025 Internet Access Q2 Not on file 08/09/2025 Sex and Gender Information Value Date Recorded Sex Assigned at Male 09/06/2022 10:15 AM EDT Legal Sex Male 10:15 AM EDT Gender Identity Male 09/06/2022 10:15 AM EDT Sexual Orientation Straight 07/24/2024 2: 31 PM EDT documented as of this encounter Plan of Treatment Upcoming Encounters Date Type Department Care Team (Late st Contact Info) Description 10/22/2025 9:00 AM EST Nutrition [facility] DIABETES/NUTRITION [address] [place] [phone] Amena Fu, SAMMI 230 [place] [address] 10/22/2025 11:15 AM EST Office Visit [facility] [address] [place] [address] Mariya Juan MD 230 [place] [address] 12/09/2025 10:30 AM EST Office Visit [facility] 267 [place] [address] Ernestina Gayle, OD 267 [place] [address] documented as of this encounter Procedures Procedure Name Priority Date/Time Associated Diagnosis Comments PROTHROMBIN TIME WHOLE BLD POC Routine 08/16/2025 10:00 AM EDT ~PT, ~INR - ANTI COAG CLINIC Routine 08/16/2025 10:00 AM EDT documented in this encounter Results * (ABNORMAL) PROTHROMBIN TIME WHOLE BLD POC (08/16/2025 10:00 AM EDT) Protime 47.1(H) 11.1 - 13.5 sec [facility] 08/16/2025 10:0 0 AM EDT 08/16/2025 10:01 AM EDT us Generic External Data Provider LAB BLOOD ORDERAB LES Final Result Performing Organization Address City/[facility] Co de Phone Number [facility] [address] [place], [place] [phone] * (ABNORMAL) ~PT, ~INR - ANTI COAG CLINIC (08/16/2025 10:00 AM EDT) Prothrombin Time INR 3.9(H) 0.9 - 1.1 [facility] Comment:METER #: [id number] TERNATIONAL NORMALIZED RATIO (INR) REFERENCE RANGES Reference RangeFor patients not on anticoagulant therapy: 0.9 - 1.1INR ranges for oral anticoagulanttherapy:For prevention and treatment of venous thrombosis and pulmonary embolism: 2.0 - 3.0For acute myocardial infarction with aspirin therapy: 2.0 - 3.0For acute myocardial infarction without aspirin therapy: 3.0 - 4.0For patients with mechanical prosthetic heart valves: 2.5 - 3.5 08/16/2025 10:0 0 AM EDT 08/16/2025 10:01 AM EDT us Generic External Data Provider LAB BLOOD ORDERAB LES Final Result Performing Organization Address [facility] Co de Phone Number [facility] [address] [place], [place] [phone] documented in this encounter Visit Diagnoses Not on filedocumented in this encounter Additional Health Concerns Assessment Noted Time PHQ-9 Depression Total Score: 14 025 11:30 AM EDT documented as of this encounter Care Teams Propulsion Engineer Relationship Specialty Start Date End Date Mariya Juan MD 230 [place] [address] PCP - General Internal Medicine 04/28/23 documented as of this encounter
--- OUTSIDE RECORDS SUMMARY | 2025-08-16 10:48 | XMS_ITS | Encounter Summary ---
Author Organization [employer] Address 75 [facility] 7t [place] [address] Care Team Providers Care Rug Weaver Name Role Phone Kay Dennis Primary Care Provider Mariya Lombardi MD Primary Care Pro vider Encounter Details Date Type Department Care Team (Late Contact Info) Description 12/16/2022 Orders Only [facility] MEDICINE 230 [place], [place] [phone] Aida Villegas LPN Social History Tobacco Use [...] Info) Description 10/22/2025 9:00 AM EST Nutrition [facility] DIABETES/NUTRITION 230 [place], [place] [phone] Amena Fu RD 230 [place], [place] [phone] 10/22/2025 11:15 AM EST Office Visit [facility] MEDICINE 230 [place] [address] Mariya Juan MD 230 [place] [address] 12/09/2025 10:30 AM EST Office Visit [facility] OPTOMETRY 267 [place] [address] Shivarichard Ernestina, OD [address] [place] [address] documented as of this encounter Procedures Procedure Name Priority Date/Time Associated Diagnosis Comments PROTHROMBIN TIME WHOLE BLD POC Routine 12/16/2022 2:35 PM EST ~PT, ~INR - ANTI COAG CLINIC Routine 12/16/2022 2:35 PM EST documented in this encounter Results * (ABNORMAL) PROTHROMBIN TIME WHOLE BLD POC (12/16/2022 2:35 PM EST) Protime 45.7(H) 11.1 - 13.5 sec [facility] 12/16/2022 2:35 PM EST 12/16/2022 2:36 PM EST [facility] External Provider LAB BLO OD ORDERABLES Final Result [facility] [address] [place] [address] [phone] * (ABNORMAL) ~PT, ~INR - ANTI COAG CLINIC (12/16/2022 2:35 PM EST) Prothrombin Time INR 3.8(H) 0.9 - 1.1 [facility] Comment:METER #: [id number] TERNATIONAL NORMALIZED RATIO (INR) REFERENCE RANGES Reference [...] 2:35 PM EST 12/16/2022 2:36 PM EST [facility] External Provider LAB BLO OD ORDERABLES Final Result [facility] [address] [place] [address] [phone] documented in this encounter Visit Diagnoses Not on filedocumented in this encounter Care Teams Rug Weaver Relationship Specialty Start Date End Date Kay Dennis FNP PCP - General Family Medicine 07/05/22 04/27/23 Mariya Juan MD [address] [place] [address] PCP - General Internal Medicine 04/28/23 documented as of this encounter
--- OUTSIDE RECORDS SUMMARY | 2025-08-16 10:48 | XMS_ITS | Encounter Summary ---
Author Organization [employer] Address 75 [facility] 7t [place] [address] Care Team Providers Care Package Dye Stand Loader Name Role Phone Mariya Juan MD Primary Care Pro vider Encounter Details Date Type Department Care Team ([facility] st Contact Info) Description 07/26/2025 Results Follow-Up [facility] MEDICINE [address] [place] [address] Mariya Juan MD 230 [place] [address] ~PT, ~INR - ANTI COAG CLINIC, PROTHROMBIN [...] the past 12 months, has t he [employer], gas, oil or water [employer] threatened to shut off services in your [...] Encounter Note - Mariya Cho MD - 07/26/2025 12:02 PM EDT Pt f at coumadin clinic -Pt range goal 2.5-3.5. documented in this encounter Plan of Treatment Upcoming Encounters Date Type Department Care Team (Late st Contact Info) Description 10/22/2025 9:00 AM EST Nutrition [facility] DIABETES/NUTRITION [address] [place] [phone] [place], [place] [phone] 10/22/2025 11:15 AM EST Office Visit [facility] MEDICINE [address] [place] [phone] Mariya Juan MD 230 [place] [address] 12/09/2025 10:30 AM EST Office Visit [facility] [address] [place], [place] [phone] Ernestina Gayle, OD 267 [place] [address] documented as of this encounter Visit Diagnoses Not on filedocumented in this encounter Additional Health Concerns Assessment Noted Time PHQ-9 Depression Total Score: 12 024 2:22 PM EDT documented as of this encounter Care Teams Package Dye Stand Loader Relationship Specialty Start Date End Date Mariya Juan MD [address] [place] [address] [phone] PCP - General Internal Medicine 04/28/23 documented as of this encounter
--- OUTSIDE RECORDS SUMMARY | 2025-08-16 10:48 | XMS_ITS | Encounter Summary ---
Author Organization [employer] Address 75 [facility] 7t [place] [address] Care Team Providers Care Sewer Bricklayer Name Role Phone Mariya Juan MD Primary Care Pro vider Encounter Details Date Type Department Care Team ([facility] st Contact Info) Description 08/11/2025 Orders Only [facility] MEDICINE 230 [place], [place] [phone] Mariya Juan MD 230 [place] [address] Social History Tobacco Use Types Packs/Day Years [...] PM EDT documented as of this encounter Progress Notes * Mariya Cho MD - 08/11/2025 2:19 AM EDT [facility] eye care -referred today documented in this encounter Plan of Treatment Upcoming Encounters Date Type Department Care Team (Late st Contact Info) Description 10/22/2025 9:00 AM EST Nutrition [facility] DIABETES/NUTRITION [address] [place] [address] [place] [address] 10/22/2025 11:15 AM EST Office Visit [facility] MEDICINE [address] [place] [address] Mariya Juan MD [address] [place] [address] 12/09/2025 10:30 AM EST Office Visit [facility] OPTOMETRY [address] [place] [address] Ernestina Gayle, OD [address] [place] [address] documented as of this encounter Visit Diagnoses Not on filedocumented in this encounter Additional Health Concerns Assessment Noted Time PHQ-9 Depression Total Score: 14 025 11:30 AM EDT documented as of this encounter Care Teams Sewer Bricklayer Relationship Specialty Start Date End Date Mariya uJan MD [address] [place] [phone] PCP - General Internal Medicine 04/28/23 documented as of this encounter
--- OUTSIDE RECORDS SUMMARY | 2025-08-16 10:48 | XMS_ITS | Encounter Summary ---
Author Organization [employer] Address [address] [place] [address] 7 [place] [address] Care Team Providers Care Air Tube Releaser Name Role Phone Mariya Juan MD Primary Care Pro vider Reason for Visit * Reason Onset Date Comments Med Refill 01/08/2025 Encounter Details Date Type Department Care Team ([facility] st Contact Info) Description 01/08/2025 Telephone [facility]INE 230 [place] [address] Mariya Juan MD 230 [place] [address] Med Refill Social History Tobacco Use Types [...] solution prefilled syringe To be sent to: [id number] [address] [facility] documented in this encounter Plan of Treatment Upcoming Encounters Date Type Department Care Team ([facility] st Contact Info) Description 10/22/2025 9:00 AM EST Nutrition [facility] DIABETES/NUTRITION 230 [place], [place] [phone] Amena Fu RD 230 [place], [place] [phone] 10/22/2025 11:15 AM EST Office Visit [facility] MEDICINE 230 [place] [address] Mariya Juan MD 230 [place], [place] [phone] 12/09/2025 10:30 AM EST Office Visit [facility] OPTOMETRY [address] [place] [address] Ernestina Gayle, OD [address] [place], [place] [phone] documented as of this encounter Visit Diagnoses Not on filedocumented in this encounter Additional Health Concerns Assessment Noted Time PHQ-9 Depression Total Score: 12 024 2:22 PM EDT documented as of this encounter Care Teams Air Tube Releaser Relationship Specialty Start Date End Date Mariya Juan MD 230 [place], [place] [phone] PCP - General Internal Medicine 04/28/23 documented as of this encounter
--- OUTSIDE RECORDS SUMMARY | 2025-08-16 10:48 | XMS_ITS | Encounter Summary ---
Author Organization [employer] Address 75 [facility] 7t [place] [address] Care Team Providers Care Rn Surgical Pcu Name Role Phone Mariya Juan MD Primary Care Pro vider Encounter Details Date Type Department Care Team ([facility] st Contact Info) Description 07/04/2025 Results Follow-Up [facility] MEDICINE [address] [place] [address] Mariya Juan MD 230 [place] [address] ~PT, ~INR - ANTI COAG CLINIC, PROTHROMBIN [...] the past 12 months, has t he [employer], gas, oil or water company threatened to [...] Info) Description 10/22/2025 9:00 AM EST Nutrition [facility] DIABETES/NUTRITION [address] [place] [address] Amena Fu, SAMMI [address] [place] [address] 10/22/2025 11:15 AM EST Office Visit [facility] MEDICINE [address] [place] [address] Mariya Juan MD [address] [place] [address] 12/09/2025 10:30 AM EST Office Visit [facility] OPTOMETRY [address] [place] [address] Ernestina Gayle, OD [address] [place] [address] documented as of this encounter Visit Diagnoses Not on filedocumented in this encounter Additional Health Concerns Assessment Noted Time PHQ-9 Depression Total Score: 12 024 2:22 PM EDT documented as of this encounter Care Teams Rn Surgical Pcu Relationship Specialty Start Date End Date Mariya Juan MD [address] [place] [phone] PCP - General Internal Medicine 04/28/23 documented as of this encounter
--- OUTSIDE RECORDS SUMMARY | 2025-08-16 10:48 | XMS_ITS | Encounter Summary ---
Author Organization [email or web address] Address 75 [facility] 7t [place] [address] Care Team Providers Care Health Record Technician Name Role Phone Mariya Juan MD Primary Care Pro vider Encounter Details Date Type Department Care Team ([facility] st Contact Info) Description 07/12/2025 Results Follow-Up [facility] MEDICINE 230 [place] [address] Mariya Juan MD 230 [place] [address] ~PT, ~INR - ANTI COAG CLINIC, PROTHROMBIN [...] the past 12 months, has t he [employer] gas, oil or water [employer] threatened to shut off services in your [...] Info) Description 10/22/2025 9:00 AM EST Nutrition [facility] DIABETES/NUTRITION [address] [place] [address] [place] [address] 10/22/2025 11:15 AM EST Office Visit [facility] MEDICINE [address] [place] [address] [phone] Mariya Juan MD 230 [place] [address] 12/09/2025 10:30 AM EST Office Visit [facility] [address] [place], [place] [phone] Ernestina Gayle, OD [address] [place], [place] [phone] documented as of this encounter Visit Diagnoses Not on filedocumented in this encounter Additional Health Concerns Assessment Noted Time PHQ-9 Depression Total Score: 12 024 2:22 PM EDT documented as of this encounter Care Teams Health Record Technician Relationship Specialty Start Date End Date Mariya Juan MD 230 [place], [place] [phone] PCP - General Internal Medicine 04/28/23 documented as of this encounter
--- OUTSIDE RECORDS SUMMARY | 2025-08-16 10:48 | XMS_ITS | Encounter Summary ---
Author Organization [employer] Address 75 [facility] 7 [place] [address] Care Team Providers Care Hospice Care Transitions Coordinator Name Role Phone Mariya Juan MD Primary Care Pro vider Reason for Visit * Reason Onset Date Comments Med Refill 04/20/2024 Encounter Details Date Type Department Care Team ([facility] st Contact Info) Description 04/20/2024 Telephone [facility] MEDICINE 230 [place], [place] [phone] Mariya Juan MD [address] [place] [address] Med Refill Social History Tobacco Use Types [...] EDT Telephone call placed to Freida at [facility] Coumadin clinic. Gave orders to continue [...] EDT Received call from Freida from [facility] coumadin clinic. Pt back today for recheck, [...] 4:01 PM EDT TC placed to [facility] Anticoagulation to inquire when pt last got INR drawn. According to the operational meteorologist the pt was to come for a [...] solution prefilled syringe To be sent to: [id number] - [facility] [address] [facility] documented in this encounter Plan of Treatment Upcoming Encounters Date Type Department Care Team (Late st Contact Info) Description 10/22/2025 9:00 AM EST Nutrition [facility] DIABETES/NUTRITION [address] [place] [phone] [place] [address] 10/22/2025 11:15 AM EST Office Visit [facility] MEDICINE [address] [place] [address] Mariya Juan MD 230 [place] [address] 12/09/2025 10:30 AM EST Office Visit [facility] OPTOMETRY 267 [place], [place] [phone] Ernestina Gayle, OD 267 [place], [place] [phone] documented as of this encounter Visit Diagnoses Not on filedocumented in this encounter Additional Health Concerns Assessment Noted Time PHQ-9 Depression Total Score: 6 04/28/20 23 2:32 PM EDT documented as of this encounter Care Teams Hospice Care Transitions Coordinator Relationship Specialty Start Date End Date Mariya Juan MD [address] [place] [address] [phone] PCP - General Internal Medicine 04/28/23 documented as of this encounter
--- OUTSIDE RECORDS SUMMARY | 2025-08-16 10:48 | XMS_ITS | Clinical Summary ---
Author Organization [employer] Address [address] [facility] 7t [place] [address] Care Team Providers Care Cement Grinding Mill Operator Name Role Phone Mariya Juan MD [...] by mouth at bed time. 021 Active multivitamin (Theragran) tablet take 1 tablet by oral route every day with food 020 Active loratadine (Claritin) 10 MG tabletIndications :Seasonal allergic rhinitis, unspecified trigger Take 1 tablet (10 mg) by mouth in the morning. 90 tablet 1 023 Active warfarin (Coumadin) 7.5 MG tabletIndications :Mechanical [...] CLINIC IN THE FUTURE. 60 tablet 3 Active polyethylene glycol, PEG, 3350 (MiraLax) 17 GM/SCOOP powderIndications :Constipation, unspecified constipation type MIX AND DRINK 17 GM BY MOUTH EVERY DAY IF NEEDED FOR CONSTIPATION 510 g 2 Active Enoxaparin Sodium (Lovenox) 100 MG/ML solution prefilled syringeIndication s:Hx of prosthetic mitral valve Inject 1 mL (100 mg) under the skin 2 times daily. lovenox to be given if INR is 2.0 or less and can be stopped once INR is 2.5 or more 6 mL 2 Active albuterol (2.5 MG/3ML) 0.083% nebulizer solutionIndicatio ns:Mild intermittent asthma without complication Take 3 mL (2.5 mg) by nebulization every 4 (four) hours if needed for wheezing or shortness of breath. 75 mL 3 Active albuterol 108 (90 Base) MCG/ACT inhalerIndication s:Mild intermittent asthma without complication Inhale 2 puffs every 4 (four) hours if needed for wheezing or shortness of breath. 18 g 3 Active atorvastatin (Lipitor) 20 MG tabletIndications :Mixed hyperlipidemia Take 1 tablet (20 mg) by mouth Once per day. 30 tablet 3 025 2025 Active amoxicillin (Amoxil) 500 MG capsuleIndication s:Pre-op evaluation Take 4 capsules before dental procedure 4 capsule Active naloxone (Narcan) 4 mg/0.1 mL nasal spray Administer 1 spray (4 mg) into affected nostril(s) if needed for opioid reversal. 2 each 1 Active ondansetron ODT (Zofran-ODT) 4 MG disintegrating tabletIndications :Nausea DISSOLVE 2 TABLETS ON TOP OF THE TONGUE THEN SWALLOW EVERY 12 HOURS 60 tablet Active escitalopram (Lexapro) 10 MG tablet Take 1 tablet (10 mg) by mouth Once per day. 30 tablet 2 025 2025 Active naloxone (Narcan) 4 mg/0.1 mL nasal spray Administer 0.1 mL into affected nostril(s). 020 2024 Discontinued(R eorder (will not trigger notification to Pharmacy)) albuterol (2.5 MG/3ML) 0.083% nebulizer solutionIndicatio ns:Mild intermittent asthma without complication Take 3 mL (2.5 mg) by nebulization every 4 (four) hours if needed for wheezing or shortness of breath. 75 mL 3 023 2024 Discontinued(R eorder (will not trigger notification to Pharmacy)) fluticasone (Flonase Allergy Relief) 50 MCG/ACT nasal spray Administer 1 spray into each nostril 2 times daily. Shake gently. Before first use, prime pump. After use, clean tip and replace cap. 16 g 12 024 2024 Discontinued(O ther) sodium chloride ([place]) 0.65 % nasal spray Administer 1 spray into each nostril if needed for congestion. 15 mL 2 024 2024 atorvastatin (Lipitor) 20 MG tabletIndications :Mixed hyperlipidemia Take 1 tablet (20 mg) by mouth Once per day. 30 tablet 3 024 2024 Discontinued(R eorder (will not trigger notification to Pharmacy)) amoxicillin (Amoxil) 500 MG capsuleIndication s:Pre-op evaluation Take 4 capsules before dental procedure 4 capsule 025 2024 Discontinued(O ther) albuterol 108 (90 Base) MCG/ACT inhalerIndication s:Mild intermittent asthma without complication Inhale 2 puffs every 4 (four) hours if needed for wheezing or shortness of breath. 18 g 3 025 2024 Discontinued(R eorder (will not trigger notification to Pharmacy)) ondansetron ODT (Zofran-ODT) 4 MG disintegrating tablet DISSOLVE 2 TABLETS ON TOP OF THE TONGUE THEN SWALLOW EVERY 12 HOURS 60 tablet 025 2024 Discontinued(R eorder (will not trigger notification to Pharmacy)) Active Problems Problem Noted Date Diagnosed Date Right hemiparesis (CMS/HCC) 08/11/2025 Transaminitis 08/11/2025 Moderate major depression (CMS/HCC) 08/09/2025 Obesity 07/24/2024 Onychomycosis 07/24/2024 Movement disorder 07/24/2024 Attention deficit hyperactiv ity disorder (ADHD), predominantly hyperactive type 07/24/2024 Loud snoring 07/24/2024 Right arm weakness 04/28/2023 Overview (04/28/2023): Was seen at [facility] on 08/17/22 with noted nausea, diaphoresis in exam room, discomfort, profound fatigue, referred to [facility] ED now. Went to [facility] ED on 08/18/22 and was admitted for infection and started antibiotics. Blood cultures on 08/18/22 and 08/20/22 grew MSSA. 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 Plan was to transfer [facility]. Transfer[place] [facility] [place] for further management [...] bleed improving Has PT in home through [facility]. Assessment & Plan (04/28/2023 10:03 PM EDT): Pt completing OT soon Will refer pt to OT [facility] Core again Continue hand exercises Followup 3 month or sooner PRN with new PCP Intraparenchymal hemorrhage of brain (CMS/HCC) 0 04/28/2023 Overview (04/28/2023): Was seen at [facility] on 08/17/22 with noted nausea, diaphoresis in exam room, discomfort, profound fatigue, referred to [facility] ED now. Went to [facility] ED on 08/18/22 and was admitted for infection and started antibiotics. Blood cultures on 08/18/22 and 08/20/22 grew MSSA. 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 Plan was to transfer [facility]. [place] [facility] [place] for further management [...] endocarditis 11/03/2022 Overview (04/28/2023): Was seen at [facility] on 08/17/22 with noted nausea, diaphoresis in exam room, discomfort, profound fatigue, referred to [facility] ED now. Went to [facility] ED on 08/18/22 and was admitted for infection and started antibiotics. Blood cultures on 08/18/22 and 08/20/22 grew MSSA. 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 Plan was to transfer [facility]. [place] [facility] [place] for further management [...] Coumadin clinic, PCP and specialists Substance abuse ([facility]) 11/06/2014 Overview (04/28/2023): Last used Percocet 2013. [...] Problem Noted Date Diagnosed Date Resolved Date Pre-op evaluation 02/20/2025 08/11/2025 Assessment & Plan (02/20/2025 5:28 PM EDT): [...] amoxicillin to be taken before the procedure Depressive disorder 11/06/2014 04/28/20 23 Encounters * This document contains information received from the source organization and may not represent a complete record from that organization. Date Type Department Care Team Description 08/16/2025 Orders Only GENERIC EXTERNAL DATA DEPARTMENT Provider, Generic External Data 08/12/2025 Travel 08/11/2025 Orders Only [facility] [place] [address] Mariya Juan MD 08/09/2025 10:45 AM EDT Office Visit [facility] [place] [address] Mariya Juan MD Class 1 obesity due to excess calories without serious comorbidity with body mass index (BMI) of 31.0 to 31.9 in adult (Primary Dx); Hx of prosthetic mitral valve; Loud snoring; Movement disorder; Annual physical exam; Mild intermittent asthma without complication; Mixed hyperlipidemia; Pre-op evaluation; Nausea; Constipation, unspecified constipation type; Encounter for vaccination; Encounter for immunization; Dietary counseling; Exercise counseling; Right hemiparesis (CMS/HCC) (HCC); Substance abuse (CMS/HCC) (HCC); History of prosthetic heart valve; Health care maintenance; Mild major depression (CMS/HCC); Anxiety; Right arm weakness; Intraparenchymal hemorrhage of brain (CMS/HCC) (HCC); Transaminitis 08/09/2025 Patient Outreach [facility] [place] [address] Mariya Juan MD Care Coordination (CHW outreach for SDOH PT-1 and food needs-referral completed /) 08/09/2025 Telephone [facility] [address] [place] [address] Mariya Juan MD Pre OP note 08/09/2025 Travel 08/08/2025 Telephone [facility] [address] [place] [address] Mariya Juan MD chart prep 07/26/2025 Results Follow-Up [facility] [address] [place] [address] Mariya Juan MD ~PT, ~INR - ANTI COAG CLINIC, PROTHROMBIN TIME WHOLE BLD POC 07/26/2025 Orders Only GENERIC EXTERNAL DATA DEPARTMENT Provider, Generic External Data 07/15/2025 Results Follow-Up [facility] [address] [place] [address] Mariya Juan MD ~PT, ~INR - ANTI COAG CLINIC, PROTHROMBIN TIME WHOLE BLD POC 07/15/2025 Orders Only GENERIC EXTERNAL DATA DEPARTMENT Provider, Generic External Data 07/12/2025 Results Follow-Up [facility] [address] [place] [address] Mariya Juan MD ~PT, ~INR - ANTI COAG CLINIC, PROTHROMBIN TIME WHOLE BLD POC 07/12/2025 Orders Only [address] [address] Mariya Juan MD Hx of prosthetic mitral valve 07/12/2025 Telephone [facility] [address] [place] [address] Mariya Juan MD Critical INR 07/12/2025 Orders Only GENERIC EXTERNAL DATA DEPARTMENT Provider, Generic External Data 07/04/2025 Results Follow-Up [facility] [address] [place] [address] Mariya Juan MD ~PT, ~INR - ANTI COAG CLINIC, PROTHROMBIN TIME WHOLE BLD POC 07/03/2025 Orders Only GENERIC EXTERNAL DATA DEPARTMENT Provider, Generic External Data 06/10/2025 Results Follow-Up [facility] [address] [place] [address] Mariya Juan MD ~PT, ~INR - ANTI COAG CLINIC, PROTHROMBIN TIME WHOLE BLD POC 06/10/2025 Orders Only GENERIC EXTERNAL DATA DEPARTMENT Provider, Generic External Data 06/10/2025 Refill [facility] [address] [place] [address] Mariya Juan MD Mild intermittent asthma without complication; Constipation, unspecified constipation type 05/31/2025 Results Follow-Up [facility] [address] [place] [address] Mariya Juan MD ~PT, ~INR - ANTI COAG CLINIC, PROTHROMBIN TIME WHOLE BLD POC 05/31/2025 Orders Only GENERIC EXTERNAL DATA DEPARTMENT Provider, Generic External Data 05/17/2025 Orders Only GENERIC EXTERNAL DATA DEPARTMENT Provider, Generic External Data from Last 3 Months Immunizations Immunization Administration Dates Next Due DTaP 07/18/1989, 7,12/20/1986,11/19 Hep B, Adolescent or Pediatric 12/10/1998,1997,1998 Hib ([facility]) 10/20/1987 Influenza injectable quadriv alent IIV4 with preservative 07/23/2019,12/18/2015 Influenza injectable quadriv alent preservative free 11/10/2020,11/02/2018 Influenza, IIV3, injectable 11/10/2020,0 07/23/2019,11/02/2018,12/18,11/05/2009,09/11/2004,09/03/2002 ,09/05/2001 Influenza, seasonal, injecta ble, preservative free 08/09/2025,07/24/2024 MMR 09/14/1990,12/20/1986 OPV, Trivalent 07/18/1989, 7,01/21/1986,09/19 Pfizer Covid-19 Vaccine 12+ 08/09/2025 Pfizer Covid-19 Vaccine 12+ Bivalent 04/28/2023 Pneumococcal [...] Sign Reading Time Taken Comments Blood Pressure 130/86 08/09/2025 11:25 AM EDT Pulse 78 08/09/2025 11:25 AM EDT Temperature 36.7 C (98 F) 08/09/2025 11:25 AM EDT Respiratory Rate 20 08/09/2025 11:25 AM EDT Oxygen Saturation 97% 08/09/2025 11:25 AM EDT Inhaled Oxygen Concentration - - Weight 119 kg (261 lb 12.8 oz) 08/09/2025 11:25 AM EDT Height 190.5 cm (6' 3 ) 08/09/2025 11:25 AM EDT Body Mass Index 32.72 08/09/2025 11:25 AM EDT Plan of Treatment Upcoming Encounters Date Type Department Care Team (Late st Contact Info) Description 10/22/2025 9:00 AM EST Nutrition [facility] DIABETES/NUTRITION [address] [place] [phone] Am[address] Fu, RD [address] [place] [address] 10/22/2025 11:15 AM EST Office Visit [facility] [address] [place] [address] Mariya Juan MD [address] [place] [address] 12/09/2025 10:30 AM EST Office Visit [facility] OPTOMETRY [address] [place] [address] Ernestina Gayle, OD [address] [place] [address] Health Maintenance Due Date Last Done Comments Family Planning (PISQ) 2000 HPV Vaccines (1 - Male 3-dose series) 2000 DTaP/Tdap/Td Vaccines (10 - Td or Tdap) 01/10/2026 01/11/2016, 01/11/2016, 07/04/2013, Additional history exists Depression Monitoring 02/07/2026 08/09/2025, 025 Alcohol/Substance Use Screening 08/09/2026 08/09/2025 Disability Screening 08/09/2026 08/09/2025 SDOH Screening 08/09/2026 08/09/2025 Tobacco Screening 08/09/2026 08/09/2025 Lipid Panel 09/14/2029 09/14/2024, 04/08, 05/20/2022, Additional [...] Completed 09/14/2024 Hepatitis C Screening Completed 09/14/2024 COVID-19 Vaccine Completed 08/09/2025, , 03/17/2022, Additional history exists Influenza Vaccine Completed 08/09/2025, , 11/10/2020, Additional history exists Hepatitis A Vaccines Aged Out No long [...] COAG CLINIC Routine 08/16/2025 10:00 AM EDT ECG 12-LEAD Routine 08/09/2025 12:28 PM EDT Hx of prosthetic mitral valve PROTHROMBIN TIME WHOLE BLD POC Routine 07/26/2025 [...] COAG CLINIC Routine 05/17/2025 3:01 PM EDT HEPATITIS C AB W/REFL TO [...] WHOLE BLD POC (08/16/2025 10:00 AM EDT) Only the most recent of8 resultswithin the time period is included. Protime 47.1(H) 11.1 - 13.5 sec [facility] 08/16/2025 10:0 0 AM EDT 08/16/2025 10:01 AM EDT us Generic External Data Provider LAB BLOOD ORDERAB LES Final Result [facility] [address] [place] [phone] * (ABNORMAL) ~PT, ~INR - ANTI COAG CLINIC (08/16/2025 10:00 AM EDT) Only the most recent of8 resultswithin the time period is included. Prothrombin Time INR 3.9(H) 0.9 - 1.1 [facility] Comment:METER #: [id number] TERNATIONAL NORMALIZED RATIO (INR) REFERENCE RANGES Reference [...] ORDERAB LES Final Result Performing Organization Address [facility] Co de Phone Number [facility] [address] [place] [phone] * ECG 12 lead (08/09/2025 12:28 PM EDT) Narrative Mariya Juan MD - 08/09/2025 12:28 PM EDT EKG today HR 71,NSR, Qtc 424,only TWI in lead III ,intra-atrial /slight intraventricular conduction delay Mariya Cho MD ECG ORDERABLES F inal Result * Hepatitis C Antibody with Reflex to HCV, RNA, Quantitative, Real-Time PCR (09/14/2024 4:32 PM EST) Hepatitis C Antibody Nonreactive Nonreactive [facility] Comment:Antibodies to HCV no t detected; does not exclude early acuteHCV infection. Blood Venous blood specimen / Unknown 09/14/2024 4:32 PM EST 09/14/2024 6:05 PM EST Mariya Cho MD LAB BLOOD ORDERAB LES Final Result Performing Organization Address [facility] Co de Phone Number [facility] [address] [place] [phone] * HIV-1/2 Antigen and Antibodies, Fourth Generation, with Reflexes (09/14/2024 4:32 PM EST) HIV AB/AG Nonreactive Nonreactive [facility] Comment:HIV-1 p24 Ag and/or HIV-1/HIV-2 Ab not detected.A test result that is nonreactive does not exclude thepossibility of exposure to or infection with HIV-1 and/orHIV-2. Nonreactive results in this assay for individualswith prior exposure to HIV-1 and/or HIV-2 may be due toantigen and antibody levels that are below the limit ofdetection of this assay.The [email or web address] HIV Ag/Ab Combo assay result andsupplemental assay results should be interpreted inconjunction with the patient's clinical presentation,history and other laboratory results. If the results areinconsistent with clinical evidence, additional testing issuggested to confirm the result. Blood Venous blood specimen / Unknown 09/14/2024 4:32 PM EST 09/14/2024 6:05 PM EST us Mariya Cho MD LAB BLOOD ORDERAB LES Final Result [facility] [address] [place] [phone] * (ABNORMAL) Lipid Panel, Standard (09/14/2024 4:23 PM EST) Triglycerides 194(H) <150 mg/dL [facility] Comment:Desirable Triglyceri de: less than 150 mg/dLBorderline High Triglyceride 150-199 mg/dLHigh Triglyceride: 200-499 mg/dLVery High Triglyceride: greater than or equal to 5OO mg/dL Cholesterol 131 <200 mg/dL [facility] Comment:Desirable Cholestero l: less than 200 mg/dLBorderline High Cholesterol: 200-239 mg/dLHigh Cholesterol: greater than 239 mg/dL LDL Cholesterol Calculated 62 <100 mg/dL [facility] Comment:Desirable LDL: less than 100 mg/dLNear Optimal/Above Optimal LDL: 110- 129 mg/dLBorderline High LDL: 130-159 mg/dLHigh LDL: 160-189 mg/dLVery High LDL: greater than or equal to 190 mg/dL HDL Cholesterol 31(L) >40 mg/dL [facility] Comment:Desirable HDL: great er than 40 mg/dL Note: This HDL assay may give artificially low results in patients with liver disease. Blood Venous blood specimen / Unknown 09/14/2024 4:23 PM EST 09/14/2024 6:05 PM EST Mariya Cho MD LAB BLOOD ORDERAB LES Final Result [facility] [address] [place] [phone] from Last 3 Months or Most Recently Relevant to Health Maintenance Insurance [facility] ONE CARE < 65 [address] [id number] Care Teams Cement Grinding Mill Operator Relationship Specialty Start Date End Date Mariya Juan MD [address] [place] [address] PCP - General Internal Medicine 04/28/23
--- OUTSIDE RECORDS SUMMARY | 2025-08-16 10:48 | XMS_ITS | Encounter Summary ---
Author Organization [employer] Address [address] [place] [address] Care Team Providers Care Marketing Operations Manager Name Role Phone Mariya Juan MD Primary Care Pro vider Encounter Details Date Type Department Care Team (Latest Contact Info) Description 08/12/2025 Travel Social History Tobacco Use Types Packs/Day [...] Info) Description 10/22/2025 9:00 AM EST Nutrition [facility] DIABETES/NUTRITION [address] [place] [address] [place] [address] 10/22/2025 11:15 AM EST Office Visit [facility] MEDICINE [address] [place] [address] Mariya Juan MD [address] [place] [address] 12/09/2025 10:30 AM EST Office Visit [facility] OPTOMETRY [address] [place] [address] Ernestina Gayle, OD [address] [place] [address] documented as of this encounter Visit Diagnoses Not on filedocumented in this encounter Additional Health Concerns Assessment Noted Time PHQ-9 Depression Total Score: 14 025 11:30 AM EDT documented as of this encounter Care Teams Marketing Operations Manager Relationship Specialty Start Date End Date Mariya Juan MD [address] [place] [address] PCP - General Internal Medicine 04/28/23 documented as of this encounter
--- OUTSIDE RECORDS SUMMARY | 2025-08-16 10:48 | XMS_ITS | Encounter Summary ---
Author Organization [employer] Address [address] [facility] 7t [place] [address] Care Team Providers Care Costume Shop Coordinator Name Role Phone Kay Dennis PATTERN DATA OPERATOR Primary Care Provider Mariya Lombardi MD Primary Care Pro vider Reason for Visit * Reason Onset Date Comments Durable Medical Equipment 02/25/2023 Encounter Details Date Type Department Care Team (Late st Contact Info) Description 02/25/2023 Telephone [facility] MEDICINE [address] [place] [address] Kay Dennis, PATTERN DATA OPERATOR Durable Medical Equipment Social History Tobacco Use [...] long ago. Please sent to script [email or web address] If any questions please contact Tammy at [phone] documented in this encounter Plan of Treatment Upcoming Encounters Date Type Department Care Team (Late st Contact Info) Description 10/22/2025 9:00 AM EST Nutrition [facility] DIABETES/NUTRITION [address] [place] [address] Amena Fu, RD [address] [place] [address] 10/22/2025 11:15 AM EST Office Visit [facility] MEDICINE [address] [place] [address] Mariya Juan MD [address] [place] [address] 12/09/2025 10:30 AM EST Office Visit [facility] OPTOMETRY [address] [place], [place] [phone] Ernestina Gayle, OD [address] [place] [address] documented as of this encounter Visit Diagnoses Not on filedocumented in this encounter Care Teams Costume Shop Coordinator Relationship Specialty Start Date End Date Kay Dennis FNP PCP - General Family Medicine 07/05/22 04/27/23 Mariya Juan MD [address] [place] [phone] PCP - General Internal Medicine 04/28/23 documented as of this encounter
--- OUTSIDE RECORDS SUMMARY | 2025-08-16 10:48 | XMS_ITS | Encounter Summary ---
Author Organization [employer] Address [address] [facility] [address] [place] [address] Care Team Providers Care College And Career Counselor Name Role Phone Mariya Juan MD Primary Care Pro vider Encounter Details Date Type Department Care Team ([facility] st Contact Info) Description 07/15/2025 Results Follow-Up [facility] MEDICINE [address] [place] [address] Mariya Juan MD [address] [place] [address] ~PT, ~INR - ANTI COAG CLINIC, PROTHROMBIN [...] the past 12 months, has t he [employer], gas, oil or water [employer] threatened to shut off services in your [...] Info) Description 10/22/2025 9:00 AM EST Nutrition [facility] DIABETES/NUTRITION [address] [place] [phone] [place], [place] [phone] 10/22/2025 11:15 AM EST Office Visit [facility] MEDICINE [address] [place] [phone] Mariya Juan MD [address] [place] [address] 12/09/2025 10:30 AM EST Office Visit [facility] OPTOMETRY [address] [place], [place] [phone] Ernestina Gayle, OD [address] [place] [address] documented as of this encounter Visit Diagnoses Not on filedocumented in this encounter Additional Health Concerns Assessment Noted Time PHQ-9 Depression Total Score: 12 024 2:22 PM EDT documented as of this encounter Care Teams College And Career Counselor Relationship Specialty Start Date End Date Mariya Juan MD [address] [place] [phone] PCP - General Internal Medicine 04/28/23 documented as of this encounter
== END 2025-08-16 10:11 | disposition home or self-care (01) ==
LOC: HO.ACS 09:55
PROVIDERS: PCP Student in an Organized Health Care Education/Training Program; Visit Provider Internal Medicine Medical Oncology
DX: Z79.01 Long term (current) use of anticoagulants (principal)

== ENCOUNTER → 2025-08-16 09:55 | Outpatient (BNVA) | payer OTHER, SELFPAY | PROVIDERS: PCP Student in an Organized Health Care Education/Training Program; Visit Provider Internal Medicine Medical Oncology | DX: Z95.2 Presence of prosthetic heart valve (principal); Z79.01 Long term (current) use of anticoagulants; Z51.81 Encounter for therapeutic drug level monitoring | CPT/HCPCS: 85610; 99211 ==

== ENCOUNTER 2025-09-05 14:16 | Outpatient (AMB) | payer OTHER, SELFPAY ==
[2025-09-05 14:22] VITALS: BP 140/62; PULSE 78; O2SAT 96; BMI 32.5
--- NOTE | 2025-09-05 14:22 | A.OFFVIS_ITS ---
Vital Signs 09/05/25 14:22 Height 6 ft 3 in Weight 260 lb BMI 32.5 BP 140/62 H Blood Pressure Location Rt brachial Position Sitting Pulse 78 Pulse Source Pulse Oximeter Pulse Oximetry (%) 96 Oxygen Delivery Method Room Air Intake Visit Reasons: constipation Intake Note: Patient complex follow up for constipation/Radha pt susan was 01/2024. Patient cc: C.O. persistence of chronic sx despite current therapies. Pt states that he does do well with the miralax every 2-3 days; however, he finds that he cannot stop taking it regularly otherwise his sx become progressively worse again. Pt also reports having intermittent GERD + Nausea despite taking the omeprazole daily. Basket Patcher Required: No Accompanied by: Self / Same As Patient Allergies hydrocodone (From VICODIN) Allergy (Unknown, Verified 08/16/25 09:56) GI UPSET Medication List - Last Reconciled 09/05/25 by Genet Stewart CNP acetaminophen 325 mg PO QID PRN 7 days acetaminophen ER (Tylenol Arthritis Pain) 1,300 mg PO Q8H PRN albuterol sulfate 90 mcg/actuation (ProAir HFA) 2 puffs inhalation Q4-6H PRN atorvastatin 20 mg PO DAILY blood pressure test kit-large As directed buprenorphine-naloxone 8-2 mg (Suboxone) 1 film sublingual BID celecoxib (Celebrex) 200 mg PO DAILY PRN coenzyme Q10 (Co Q-10) PO fluticasone propionate 50 mcg/actuation sprays intranasal PRN hydroxyzine pamoate 25 mg PO TID inhalational spacing device ([facility] spacer) As directed loratadine 10 mg PO DAILY melatonin 5 mg PO BEDTIME PRN omeprazole 20 mg PO DAILY ondansetron HCl 4 mg PO Q8H PRN polyethylene glycol 3350 (Miralax) 17 grams PO DAILY sodium chloride 0.65% (Deep Sea Nasal) sprays intranasal warfarin 7.5 mg See Protocol PO 2XW warfarin 10 mg See Protocol PO 5XW HPI HPI constipation: Details: Patient is a 40-year-old male with PMH of asthma, opioid use disorder in remission, depression, anxiety, 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 Referred by PCP for further management of constipation/acid reflux. Ludin presents for ongoing constipation requiring intermittent use of polyethylene glycol, typically one to two times per week, with insufficient relief to eliminate the need for medication. Symptoms began after hospitalization in 2021 when new medications were initiated. Constipation persists despite discontinuing those agents and correlates with continued Sub oxone use, which he started after wrist surgery to treat post-op opioid withdrawal. He titrates polyethylene glycol use based on stool frequency and reports loose stools if taken daily. Dietary intake is low in fiber, with frequent consumption of bread, ham, cheese, potatoes, beef or chicken, some vegetables/greens, sweets, juice, and soda, with less emphasis on water and high-fiber foods. Abdominal pain sometimes occurs, occasionally severe enough to require ED evaluation; pain usually subsides over the course of the day rather than immediately after defecation. Nausea is intermittently present since 2021, typically in the morning, not correlated directly with constipation, and without emesis. He has a long-standing history of heartburn since adolescence, managed intermittently with omeprazole as needed (1?2x/week); reports partial relief. Symptoms include burning in the throat and infrequent small-volume regurgitation but no dysphagia. Appetite remains good. Mild chronic microcytic anemia is noted on labs, likely attributable to chronic disease. He also has a history of endocarditis ( and 2021), treated with open heart surgery initially, and a history of intracranial hemorrhage with associated in-hospital stroke in 2021. Mild elevations in LFTs have been chronic, with no current evidence of hepatitis, HIV, or significant hepatic imaging abnormalities on prior CAT scan (12/2023). No history of GI malignancy in first-degree relatives. Medical management is coordinated with cardiology for ongoing cardiac conditions. Patient denies: fever/chills, vomiting, appetite changes, dysphasia, unintentional wt loss or melena/hematochezia. Social hx: -denies ETOH use -former PCP use, denies other recreational drug use -former smoker, cessation - family hx as below -denies personal hx of CA -tolerated anesthesia in the past without difficulty. [facility] Medical History (Updated 09/06/25 @ 09:34 by Genet Stewart CNP) Anemia Elevated LFTs Current use of anticoagulant therapy Anticoagulant causing adverse effect in therapeutic use CVA (cerebrovascular accident due to intracerebral hemorrhage) Endocarditis of prosthetic mitral valve SIRS (systemic inflammatory response syndrome) Myalgia Opioid use disorder Fracture of proximal end of humerus Asthma Surgical History History of heart valve replacement with mechanical valve Heart valve replaced Presence of other heart-valve replacement Family History Father Diabetes Mother H/O thyroid disease Social History Household Members: Family Household Members Other:: 3 kids Housing: Apartment Do you presently have visiting nurse or other home services: No Alcohol intake: never Patient Tobacco Use Status: Former Tobacco user Tobacco use type: Cigarette Substance Use Type: Former Substance User and Other service: No Current occupational status: unemployed and disabled 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- Review of Systems Const Reports as per HPI ENT Reports as per HPI Card Reports as per HPI Resp Reports as per HPI GI Reports as per HPI Reports as per HPI Physical Exam Vital Signs: Last Vital Signs Pulse 78 09/05/25 14:22 BP 140/62 H 09/05/25 14:22 Pulse Ox 96 09/05/25 14:22 Oxygen Delivery Method Room Air 09/05/25 14:22 BMI result Body Mass Index 32.5 Const General: healthy appearing, no acute distress and well developed Nutritional Appearance: average body habitus Orientation/consciousness: patient oriented x3 HEENT Head: Yes normal to inspection, Yes normocephalic and Yes atraumatic Face and sinus: Yes normal facial exam Eyes General: appearance normal, both eyes and all related structures Neck Neck: Yes normal visual inspection Resp Effort & Inspection: normal respiratory effort, able to speak in complete sentences, no tracheal deviation and symmetric chest movement GI Inspection: Yes normal to inspection, No distended and Yes obesity Palpation (GI): Soft to palpation, not firm, nontender and No hepatosplenomegaly present Auscultation: normal bowel sounds Neuro General: patient oriented x3 Gait exam (Neuro): Normal gait present Psych Appearance: grossly normal Mental Status: mental status grossly normal Speech and movement: Normal speech and movement present Affect: normal affect Attitude: cooperative Thought process: Normal thought process present Thought content: Normal thought content present Insight: Good insight present (Psych) Judgement: Good judgement present (Psych) Results Reviewed Results Reviewed: Date of Service: 12/25/23 Procedure(s): CT abdomen pelvis wo IV con Accession Number(s): [id number] cc: Trinh Zacarias MD; Physician,Unknown ~ EXAMINATION: CT ABDOMEN AND PELVIS WITHOUT CONTRAST CLINICAL INFORMATION: lower abdominal pain. COMPARISON: 07/18/2023. TECHNIQUE: Multidetector volumetric imaging was performed from the superior aspect of the liver through the pubic symphysis without contrast per renal stone protocol. Sagittal and coronal reformatted images were obtained on the technologist workstation. This CT examination was performed using dose optimization techniques as appropriate, variously including the following: *Automated exposure control *Adjustment of mA and/or kV according to patient size (this includes techniques or standardized protocols for targeted exams where dose is matched to indication/reason for exam; i.e. extremities or head) *Use of iterative reconstruction technique DLP: 666 mGy-cm. FINDINGS: LUNG BASES: The visualized lung bases are unremarkable. LIVER, GALLBLADDER, BILIARY TREE: The non-contrast liver is normal in size, shape, and attenuation. No focal hepatic lesion or biliary ductal dilatation is present. The gallbladder is unremarkable with no evidence of radiopaque gallstones, gallbladder wall thickening, or obvious pericholecystic inflammatory changes. PANCREAS: Unremarkable. SPLEEN: Unremarkable. ADRENAL GLANDS: Unremarkable. KIDNEYS AND URETERS: The kidneys are normal in size, shape, and attenuation. No hydronephrosis, hydroureter, or perinephric stranding. No calculi. BLADDER: Unremarkable. GASTROINTESTINAL TRACT: The small and large bowel are unremarkable. The appendix is unremarkable. ABDOMINAL WALL: No significant hernia is appreciated. LYMPHOVASCULAR STRUCTURES: No lymphadenopathy. The aorta is unremarkable.. PELVIC VISCERA: Unremarkable. OSSEUS STRUCTURES: Unremarkable. CT/CT abdomen pelvis wo IV con IMPRESSION: No acute intra-abdominal process seen. Assessment & Plan Assessment & Plan (1) Chronic constipation: Code(s): K59.09 - Other constipation Category: Medical Plan: Persistent symptoms despite cessation of initial inciting meds, continued Suboxone use, low dietary fiber, and improved symptoms with polyethylene glycol. Functional constipation vs opioid-induced constipation Additional Testing: None indicated beyond current plan unless symptoms change. Medication Management: Continue polyethylene glycol PRN, titrate to stool consistency as currently done. Lifestyle Recommendations: Increase dietary fiber intake via foods (fruits, vegetables, whole grains per handout), increase water intake, decrease soda/juice. Avoid overuse of fiber supplements without adequate hydration. Follow-Up: Reassess with GI or PCP if status worsens or at GI follow-up. Monitor for signs of obstruction, severe pain, or change in bowel habits. (2) Acid reflux: Code(s): K21.9 - Gastro-esophageal reflux disease without esophagitis Category: Medical Qualifiers: Esophagitis presence: esophagitis presence not specified Qualified Code(s): K21.9 - Gastro-esophageal reflux disease without esophagitis Plan: Longstanding symptoms, partial response to as-needed omeprazole, symptoms likely under-controlled due to episodic dosing. GERD vs other upper GI pathology (e.g., gastritis, peptic ulcer disease, EoE) Additional Testing: -Schedule upper endoscopy to evaluate for mucosal disease, esophagitis, De Leon?s; pending cardiology clearance. -Victoria plysuhail testing (called LMOM informing of addition) Medication Management: Transition to omeprazole 20 mg daily, 90-day supply sent to pharmacy, take on empty stomach 30 min prior to meals. Lifestyle Recommendations: Avoid trigger foods (high-fat, spicy, acidic), elevate head of bed, avoid eating 2-3 hours before lying down, reinforce dietary fiber/water guidance for concomitant constipation. Follow-Up: GI follow-up after endoscopy or sooner if worsening/dysphagia/alarms. (3) Elevated LFTs: Code(s): R79.89 - Other specified abnormal findings of blood chemistry Category: Medical Plan: Mild transaminase elevation; no viral hepatitis/HIV; no CT evidence of significant liver disease. DDX: NAFLD, medication effect, less likely autoimmune or celiac Additional Testing: Repeat fasting liver panel, autoimmune and celiac workup per order; Will consider liver US if labs remain abnormal. Medication Management: None required at present. Lifestyle Recommendations: Optimize weight/diet, avoid hepatotoxins (alcohol already avoided). Follow-Up: Review laboratory findings and plan further workup as needed. (4) Anemia: Code(s): D64.9 - Anemia, unspecified Category: Medical Qualifiers: Anemia type: unspecified type Qualified Code(s): D64.9 - Anemia, unspecified Plan: Persistent mild anemia identified as microcytic, may reflect chronic disease; unclear if other contributors exist. chronic inflammation, occult GI loss, nutritional deficiency Additional Testing: Fasting labs ordered?CBC, iron studies, vitamin B12, folate, repeat LFTs, autoimmune markers, celiac serologies. Medication Management: None initiated at this time; address deficiencies if detected. Lifestyle Recommendations: Ensure adequate nutrition; reinforce fiber/iron-rich foods. Follow-Up: Review lab results when available and arrange further workup if needed. Plan Follow-up after endoscopy or sooner as needed Time: I spent a total of 45 minutes on the date of encounter which includes: Preparing to see the patient (reviewed previous documentation, test results and medical history) Performing a medically appropriate exam and/or evaluation Ordering medications, tests, and procedures Documenting clinical information in the health record Orders: Orders Alkaline Phosphatase Isoenzyme 09/05/25 R7.89 - Other specified abnormal findings of blood chemistry Comprehensive [place]. Panel Fast 09/05/25 R7. - Other specified abnormal fi ndings of blood chemistry Complete Blood Count Auto Diff 09/05/25 R7. - Other specified abnormal findings of blood chemistry Prothrombin Time INR 09/05/25 R7. - Other specified abnormal findings of blood chemistry Mitochondrial Antibody 09/05/25 R7. - Other specified abnormal findings of blood chemistry Smooth Muscle Antibody 09/05/25 R7. - Other specified abnormal findings of blood chemistry Transglutaminase IgA 09/05/25 R7. - Other specified abnormal findings of blood chemistry Lipase 09/05/25 R7.89 - Other specified abnormal findings of blood chemistry IRON PROFILE 09/05/25 D64.9 - Anemia, unspecified Vitamin B12 and Folate 09/05/25 D64.9 - Anemia, unspecified Ferritin 09/05/25 R79.89 - Other specified abnormal findings of blood chemistry H pylori Ag Stool Today K21.9 - Gastro-esophageal reflux disease without esophagitis, R11.2 - Nausea with vomiting, unspecified Referrals GI Procedure Notification K21.9 - Gastro-esophageal reflux disease without esophagitis, R11.2 - Nausea with vomiting, unspecified Medications: Changed From omeprazole 20 mg PO DAILY 30 caps 5RF To omeprazole Take one tablet daily on empty stomach, delay eating 30 minutes 20 mg PO DAILY 90 caps 1RF Coding Level of Care Code New Pt New Pt Level 4 (09143) Patient Type New Diagnoses Chronic constipation K59.09 Gastroesophageal reflux disease, unspecified whether esophagitis present K21.9 Esophagitis presence: esophagitis presence not specified Elevated LFTs R79.89 Anemia, unspecified type D64.9 Anemia type: unspecified type
--- OUTSIDE RECORDS SUMMARY | 2025-09-05 17:18 | XMS_ITS | Encounter Summary ---
Author Organization [employer] Address [address] [facility] 7t [place] [address] Care Team Providers Care Comic Illustrator Name Role Phone Mariya Juan MD Primary Care Pro vider Reason for Visit * Reason Comments Med Refill Encounter Details Date Type Department Care Team ([facility] st Contact Info) Description 04/25/2025 Refill [facility] MEDICINE [address] [place], [place] [phone] Bertha Diaz MD [address] [place], [place] [phone] Constipation, unspecified constipation type Social History Tobacco [...] the past 12 months, has t he [employer], gas, oil or water company threatened to [...] 10/22/2025 9:00 AM EST Nutrition [facility] DIABETES/NUTRITION [address] [place] [phone] Amena Fu, RD [address] [place] [address] 10/22/2025 11:15 AM EST Office Visit [facility] MEDICINE [address] [place] [phone] Mariya Juan MD [address] [place] [address] 12/09/2025 10:30 AM EST Office Visit [facility] OPTOMETRY [address] [place] [phone] Ernestina Gayle, OD [address] [place] [address] documented as of this encounter Visit Diagnoses Diagnosis Constipation, unspecified constipation type documented in this encounter Additional Health Concerns Assessment Noted Time PHQ-9 Depression Total Score: 12 024 2:22 PM EDT documented as of this encounter Care Teams Comic Illustrator Relationship Specialty Start Date End Date Mariya Juan MD [address] [place] [phone] PCP - General Internal Medicine 04/28/23 documented as of this encounter
--- OUTSIDE RECORDS SUMMARY | 2025-09-05 17:18 | XMS_ITS | Encounter Summary ---
Author Organization [employer] Address [address] [place] [address] 7t [place] [address] Care Team Providers Care Ship'S Engineer Name Role Phone Mariya Juan MD Primary Care Pro vider Encounter Details Date Type Department Care Team ([facility] st Contact Info) Description 08/16/2025 Results Follow-Up [facility] MEDICINE [address] [place] [address] Mariya Juan MD [address] [place] [address] ~PT, ~INR - ANTI COAG CLINIC, PROTHROMBIN [...] the past 12 months, has t he [email or web address], gas, oil or water [employer] threatened to shut off services in your [...] Encounter Note - Mariya Cho MD - 08/16/2025 3:55 PM EDT Pt f at coumadin clinic -Pt range goal 2.5-3.5 documented in this encounter Plan of Treatment Upcoming Encounters Date Type Department Care Team (Late st Contact Info) Description 10/22/2025 9:00 AM EST Nutrition [facility] DIABETES/NUTRITION [address] [place] [phone] [place], [place] [phone] 10/22/2025 11:15 AM EST Office Visit [facility] MEDICINE [address] [place] [address] [phone] Mariya Juan MD [address] [place], [place] [phone] 12/09/2025 10:30 AM EST Office Visit [facility] OPTOMETRY [address] [place], [place] [phone] Ernestina Gayle, OD [address] [place], [place] [phone] documented as of this encounter Visit Diagnoses Not on filedocumented in this encounter Additional Health Concerns Assessment Noted Time PHQ-9 Depression Total Score: 14 025 11:30 AM EDT documented as of this encounter Care Teams Ship'S Engineer Relationship Specialty Start Date End Date Mariya Juan MD [address] [place] [address] [phone] PCP - General Internal Medicine 04/28/23 documented as of this encounter
--- OUTSIDE RECORDS SUMMARY | 2025-09-05 17:18 | XMS_ITS | Encounter Summary ---
Author Organization [employer] Address [address] [place] [address] 7t [place] [address] Care Team Providers Care Bench Mover Name Role Phone Mariya Juan MD Primary Care Pro vider Encounter Details Date Type Department Care Team ([facility] st Contact Info) Description 07/04/2025 Results Follow-Up [facility] MEDICINE [address] [place] [address] Mariya Juan MD [address] [place] [address] ~PT, ~INR - ANTI COAG CLINIC, PROTHROMBIN [...] PM EDT documented as of this encounter Functional Status * Over the past 2 weeks, how often have you been bothered by any of the following problems? Question Answer Date of Assessment Author Patient Health Questionnaire -2 Score 4 08/09/2025 11:30 AM EDT Lyndsay Badillo MA * Little interest or pleasure in doing things Answer Date of Assessment Author Nearly every day 08/09/2025 11:30 AM EDT Lyndsay Badillo MA * Feeling down, depressed, or hopeless Answer Date of Assessment Author Several days 08/09/2025 11:30 AM EDT Lyndsay Badillo MA * Trouble falling or staying asleep, or sleeping too much Answer Date of Assessment Author More than half the days 08/09/2025 11:30 AM Lyndsay Mark MA * Feeling tired or having little energy Answer Date of Assessment Author Nearly every day 08/09/2025 11:30 AM STEPHANIET Lyndsay Badillo MA * Poor appetite or overeating Answer Date of Assessment Author More than half the days 08/09/2025 11:30 AM Lyndsay Mark MA * Feeling bad about yourself - or that you are a failure or have let yourself or your family down Answer Date of Assessment Author Several days 08/09/2025 11:30 AM Lyndsay Mark MA * Trouble concentrating on things, such as reading the newspaper or watching television Answer Date of Assessment Author More than half the days 08/09/2025 11:30 AM Lyndsay Mark MA * Moving or speaking so slowly that other people could have noticed? Or the opposite - being so fidgety or restless that you have been moving around a lot more than usual. Answer Date of Assessment Author Not at all 08/09/2025 11:30 AM Lyndsay Mark MA * Thoughts that you would be better off or hurting yourself in some way Answer Date of Assessment Author Not at all 08/09/2025 11:30 AM Lyndsay Mark MA * Patient Health Questionnaire-9 Score Answer Date of Assessment Author 14 08/09/2025 11:30 AM Lyndsay Mark MA * How difficult have these problems made it for you to do your work, take care of things at home, or get along with other people? Answer Date of Assessment Author Somewhat difficult 08/09/2025 11:30 AM Lyndsay Posadas MA * Over the last 2 weeks, how often have you been bothered by any of the following problems? Question Answer Date of Assessment Author Feeling nervous, anxious, or on edge 2 08/09/2025 11:30 AM Lyndsay Mark MA Not being able to stop or co ntrol worrying 0 08/09/2025 11:30 AM Lyndsay Mark MA Worrying too much about diff erent things 1 08/09/2025 11:30 AM Lyndsay Mark MA Trouble relaxing 1 08/09/2025 11:30 AM Lyndsay Mark MA Being so restless that it is hard to sit still 0 08/09/2025 11:30 AM EDT Lyndsay Badillo MA Becoming easily annoyed or irritable 1 08/09/2025 11:30 AM EDT Lyndsay Badillo MA Feeling afraid as if somethi ng awful might happen 0 08/09/2025 11:30 AM EDT Lyndsay Badillo MA DELVIN-7 Total Score 5 08/09/2025 11:30 AM EDT Lyndsay Badillo MA documented as of this encounter Plan of Treatment Upcoming Encounters Date Type Department Care Team (Late st Contact Info) Description 10/22/2025 9:00 AM EST Nutrition [facility] DIABETES/NUTRITION [address] [place] [address] [place] [address] 10/22/2025 11:15 AM EST Office Visit [facility] MEDICINE [address] [place] [address] Mariya Juan MD [address] [place] [address] 12/09/2025 10:30 AM EST Office Visit [facility] OPTOMETRY [address] [place] [address] Ernestina Gayle, OD [address] [place] [address] documented as of this encounter Visit Diagnoses Not on filedocumented in this encounter Additional Health Concerns Assessment Noted Time PHQ-9 Depression Total Score: 12 07/24/ 024 2:22 PM EDT documented as of this encounter Care Teams Bench Mover Relationship Specialty Start Date End Date Mariya Juan MD [address] [place] [address] PCP - General Internal Medicine 04/28/23 documented as of this encounter
--- OUTSIDE RECORDS SUMMARY | 2025-09-05 17:18 | XMS_ITS | Encounter Summary ---
Author Organization [employer] Address [address] [place] [address] 7 [place] [address] Care Team Providers Care Scaffolding Helper Name Role Phone Mariya Juan MD Primary Care Pro vider Reason for Visit * Reason Onset Date Comments Med Refill 01/08/2025 Encounter Details Date Type Department Care Team ([facility] st Contact Info) Description 01/08/2025 Telephone [facility] MEDICINE [address] [place] [address] Mariya Juan MD [address] [place] [address] Med Refill Social History Tobacco Use Types [...] solution prefilled syringe To be sent to: [id number] [address] [facility] documented in this encounter Plan of Treatment Upcoming Encounters Date Type Department Care Team ([facility] st Contact Info) Description 10/22/2025 9:00 AM EST Nutrition [facility] DIABETES/NUTRITION [address] [place], [place] [phone] Amena Fu [address] [place], [place] [phone] 10/22/2025 11:15 AM EST Office Visit [facility] MEDICINE [address] [place] [address] Mariya Juan MD [address] [place], [place] [phone] 12/09/2025 10:30 AM EST Office Visit [facility] OPTOMETRY [address] [place] [address] Ernestina Gayle, OD [address] [place], [place] [phone] documented as of this encounter Visit Diagnoses Not on filedocumented in this encounter Additional Health Concerns Assessment Noted Time PHQ-9 Depression Total Score: 12 024 2:22 PM EDT documented as of this encounter Care Teams Scaffolding Helper Relationship Specialty Start Date End Date Mariya Juan MD [address] [place], [place] [phone] PCP - General Internal Medicine 04/28/23 documented as of this encounter
--- OUTSIDE RECORDS SUMMARY | 2025-09-05 17:18 | XMS_ITS | Encounter Summary ---
Author Organization [employer] Address [address] [facility] 7t [place] [address] Care Team Providers Care Quality Control Scientist Name Role Phone Kay Dennis DIRECTOR CORPORATE SALES Primary Care Provider Mariya Lombardi MD Primary Care Pro vider Reason for Visit * Reason Onset Date Comments Durable Medical Equipment 02/25/2023 Encounter Details Date Type Department Care Team (Late st Contact Info) Description 02/25/2023 Telephone [facility] MEDICINE [address] [place] [address] Kay Dennis, DIRECTOR CORPORATE SALES Durable Medical Equipment Social History Tobacco Use [...] long ago. Please sent to script [email or web address] If any questions please contact Tammy at [phone] documented in this encounter Plan of Treatment Upcoming Encounters Date Type Department Care Team (Late st Contact Info) Description 10/22/2025 9:00 AM EST Nutrition [facility] DIABETES/NUTRITION [address] [place] [address] Amena Fu, RD 230 [place] [address] 10/22/2025 11:15 AM EST Office Visit [facility] MEDICINE [address] [place] [address] Mariya Juan MD 230 [place] [address] 12/09/2025 10:30 AM EST Office Visit [facility] OPTOMETRY [address] [place], [place] [phone] Ernestina Gayle, OD [address] [place] [address] documented as of this encounter Visit Diagnoses Not on filedocumented in this encounter Care Teams Quality Control Scientist Relationship Specialty Start Date End Date Kay Dennis FNP PCP - General Family Medicine 07/05/22 04/27/23 Mariya Juan MD [address] [place] [phone] PCP - General Internal Medicine 04/28/23 documented as of this encounter
--- OUTSIDE RECORDS SUMMARY | 2025-09-05 17:18 | XMS_ITS | Clinical Summary ---
Author Organization [facility] Address [address] [place] [address] Phone Care Team Providers Care Devulcanizer Charger Name Role Phone Sharon Baum MD Primary Care Provider [phone] Allergies No known active allergies Medications Buprenorphine [...] to 49 Years) Completed 04/28/2023, 02/17/[address] [place] [address] ([id number]) [facility] ([id number]) [place]DE[place] [phone] Care Teams Devulcanizer Charger Relationship Specialty Start Date End Date Sharon Baum MD [address] [place] [address] PCP - General Internal Medicine 10/20/22
--- OUTSIDE RECORDS SUMMARY | 2025-09-05 17:18 | XMS_ITS | Data Portability ---
Author Organization [place] - [facility], Allergy Address [address] [place] [phone] Care Team Providers Care Toe Closing Machine Tender Name Role Phone NAME, KEIRA Primary Care [...] worsen, may consider tonsillectomy in the future. [email or web address] Not available 04/11/2024 15:22:38 Plan of Treatment Reminders Order Date Submit Date Provider Last Modified By Organization Details Last Modified Time Details Appointments None recorded. Lab None recorded. Referral None recorded. Procedures None recorded. Surgeries None recorded. Imaging None recorded. Medication Orders Flonase Allergy Relief 50 mcg/actua tion nasal spray,darrin pension 024 024 [id number], [address] [place], [place], [id number], 15:20:32 Patient TargetsNo targets recorded. Patient InstructionsNo instructions recorded. Reason for Referral None Reported. 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 Procedures Surgical History Date Name Laterality Status Provider Name and Address Organization Details Recorded Time Heart Surgery completed Daphnie Welsh [place] - [facility] 04/11/2024 15:01:33 Imaging Results None recorded. Procedure [...] Updated DateTime 04/11/2024 190.5 cm 30 kg/m2 576826.17 g Daphnie Welsh [place] - [facility] 04/11/2024 14:58:50 Date Recorded Body height Body mass index (BMI) Body weight Provider Name and Address Organization Details Last Updated DateTime 08/30/2024 190.5 cm 30 kg/m2 203369.17 g Nelli Fishman [place] - [facility] 08/30/2024 10:37:44 Social History None recorded. Functional Status None recorded. Mental Status None recorded. Family History Nothing Reported. Medical History No medical history recorded. Past Encounters Encounter ID Performer Location Encounter Start Date Encounter Closed Date Diagnosis/Indication Diagnosis SNOMED-CT Code Diagnosis ICD10 Code Diagnosis IMO Codes Diagnosis Note [id number] CHANI KIM PA-C [facility] [address] [place] [address] 04/11/2024 14:35:25 04/11/2024 15:13:40 Amygdalolith 9118474 J35.8 Allergic rhinitis 888113 04 J30.89 [id number] EDDIE MONTES MD [facility] of [address] [phone] 08/30/2024 10:28:36 08/30/2024 10:58:17 Amygdalolith 3828237 J35.8 Discourage d surgery. Recommend observatio n. [...] Roberts Member ID Guarantor Name 11/15/2024 1 [facility] - DOS ON OR AFTER 2023 - [facility] (MEDICARE REPLACEMENT/AD VANTAGE - HMO) Ludin Mendes [id number] Ludin Mendes 08/30/2024 1 [facility] - DOS ON OR AFTER 2023 - MEDICARE ADVANTAGE [place] (MEDICARE REPLACEMENT/AD VANTAGE - PPO) Ludin Mendes [id number] Ludin Mendes Notes Date Note Type Note [...] did not continue it. CHANI KIM PA-C [address] [place] [address], [phone], [facility] - [facility] 04/11/2024 15:25:28 08/30/2024 text/html ROS as noted in the HPI 38-year-old male presents for evaluation of tonsil stones. Bleeding has resolved. He has not been using flonase but finds mouth rinses helpful. He is less bothered than before. EDDIE MONTES MD [address] [place] [address], [phone], [facility] - [facility] 08/30/2024 11:00:13
--- OUTSIDE RECORDS SUMMARY | 2025-09-05 17:18 | XMS_ITS | Clinical Summary ---
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 Went to [facility] ED on 08/18/22 and was admitted for infection and started antibiotics. Blood cultures on 08/18/22 and 08/20/22 grew MSSA. 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 Plan was to transfer [facility]. Transferred to [facility] 08/21/22 for further management of infective [...] bleed improving Has PT in home through [facility]. Assessment & Plan (04/28/2023 10:03 PM EDT): Pt completing OT soon Will refer pt to OT [facility] Core again Continue hand exercises Followup 3 month or sooner PRN with new PCP Intraparenchymal hemorrhage of brain (CMS/HCC) 0 04/28/2023 Overview (04/28/2023): Was seen at [facility] on 08/17/22 with noted nausea, diaphoresis in exam room, discomfort, profound fatigue, referred to [facility] ED now. Went to [facility] ED on 08/18/22 and was admitted for infection and started antibiotics. Blood cultures on 08/18/22 and 08/20/22 grew MSSA. 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 Plan was to transfer [facility]. Transferred to [facility] on 08/21/22 for further management of infective [...] endocarditis 11/03/2022 Overview (04/28/2023): Was seen at [facility] on 08/17/22 with noted nausea, diaphoresis in exam room, discomfort, profound fatigue, referred to [facility] ED now. Went to [facility] ED on 08/18/22 and was admitted for infection and started antibiotics. Blood cultures on 08/18/22 and 08/20/22 grew MSSA. 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 Plan was to transfer [facility]. Transferred to [facility] on 08/21/22 for further management of infective [...] Coumadin clinic, PCP and specialists Substance abuse ([facility]) 11/06/2014 Overview (04/28/2023): Last used Percocet [...] Date Type Department Care Team Description 08/16/2025 Results Follow-Up [facility] [place] [address] Mariya Juan MD ~PT, ~INR - ANTI COAG CLINIC, PROTHROMBIN TIME WHOLE BLD POC 08/16/2025 Orders Only GENERIC EXTERNAL DATA DEPARTMENT Provider, Generic External Data 08/12/2025 Travel 08/11/2025 Orders Only [facility] [place] [address] Mariya Juan MD 08/09/2025 10:45 AM EDT Office Visit [facility] [place] [address] Mariya Juan MD Class 1 obesity due [...] Dietary counseling; Exercise counseling; Right hemiparesis (CMS/HCC) ([facility]); Substance abuse (CMS/HCC) ([facility]); History of prosthetic heart valve; Health care maintenance; Mild major depression (CMS/HCC); Anxiety; Right arm weakness; Intraparenchymal hemorrhage of brain (CMS/HCC) ([facility]); Transaminitis 08/09/2025 Patient Outreach [facility] [place] [address] Mariya Juan MD Care Coordination (CHW outreach for SDOH PT-1 and food needs-referral completed /) 08/09/2025 Telephone [facility] [place] [address] Mariya Juan MD Pre OP note 08/09/2025 Travel 08/08/2025 Telephone [facility] [address] [facility] [place] [address] Mariya Juan MD chart prep 07/26/2025 Results Follow-Up [facility] [address] [facility] [place] [place] [address] Mariya Juan MD ~PT, ~INR - ANTI COAG CLINIC, PROTHROMBIN TIME WHOLE BLD POC 07/26/2025 Orders Only GENERIC EXTERNAL DATA DEPARTMENT Provider, Generic External Data 07/15/2025 Results Follow-Up [facility] [address] [facility] [place] [place] [address] Mariya Juan MD ~PT, ~INR - ANTI COAG CLINIC, PROTHROMBIN TIME WHOLE BLD POC 07/15/2025 Orders Only GENERIC EXTERNAL DATA DEPARTMENT Provider, Generic External Data 07/12/2025 Results Follow-Up [address] [place] [address] Mariya Juan MD ~PT, ~INR - ANTI COAG CLINIC, PROTHROMBIN TIME WHOLE BLD POC 07/12/2025 Orders Only [address] [place] [address] Mariya Juan MD Hx of prosthetic mitral valve 07/12/2025 Telephone [facility]EDIATR[facility] [address] [place] [address] Mariya Juan MD Critical INR 07/12/2025 Orders Only GENERIC EXTERNAL DATA DEPARTMENT Provider, Generic External Data 07/04/2025 Results Follow-Up [facility] [address] [place] [address] Mariya Juan MD ~PT, ~INR - ANTI COAG CLINIC, PROTHROMBIN TIME WHOLE BLD POC 07/03/2025 Orders Only GENERIC EXTERNAL DATA DEPARTMENT Provider, Generic External Data 06/10/2025 Results Follow-Up [facility] MEDIC[facility] [address] [place] [address] Mariya Juan MD ~PT, ~INR - ANTI COAG CLINIC, PROTHROMBIN TIME WHOLE BLD POC 06/10/2025 Orders Only GENERIC EXTERNAL DATA DEPARTMENT Provider, Generic External Data 06/10/2025 Refill [facility] MED[facility] [address] [place] [address] Mariya Juan MD Mild intermittent asthma without complication; Constipation, unspecified constipation type from Last 3 Months Immunizations Immunization Administration Dates Next Due DTaP 07/18/1989, 7,12/20/1986,11/19 Hep B, Adolescent or Pediatric 12/10/1998,1997,1998 Hib ([facility]) 10/20/1987 Influenza injectable quadriv alent IIV4 with [...] Upcoming Encounters Date Type Department Care Team ([facility] st Contact Info) Description 10/22/2025 9:00 AM EST Nutrition [facility] DIABETES/NUTRITION [address] [place] [address] Amena Fu, SAMMI [address] [place] [address] 10/22/2025 11:15 AM EST Office Visit [facility] MEDICINE [address] [place] [address] Mariya Juan MD [address] [place] [address] 12/09/2025 10:30 AM EST Office Visit [facility] OPTOMETRY [address] [place] [address] Ernestina Gayle, OD [address] [place] [address] Health Maintenance Due Date Last Done Comments [...] COAG CLINIC Routine 06/10/2025 3:00 PM EDT HEPATITIS C AB W/REFL TO [...] 10:00 AM EDT) Only the most recent of6 resultswithin the time period is included. Protime 47.1(H) 11.1 - 13.5 sec [facility] 08/16/2025 10:0 0 AM EDT 08/16/2025 10:01 AM EDT us Generic External Data Provider LAB BLOOD ORDERAB LES Final Result Performing Organization Address [facility] Co de Phone Number [facility] [address] [place] [phone] * (ABNORMAL) ~PT, ~INR - ANTI COAG CLINIC (08/16/2025 10:00 AM EDT) Only the most recent of6 resultswithin the time period is included. Prothrombin Time INR 3.9(H) 0.9 - 1.1 [facility] Comment:METER #: [id number] TERNATIONAL NORMALIZED RATIO (INR) REFERENCE RANGES Reference [...] ORDERAB LES Final Result Performing Organization Address [facility]/ZIP Co de Phone Number [facility] [address] [place] [phone] * ECG 12 lead (08/09/2025 12:28 PM EDT) Narrative Mariya Juan MD - 08/09/2025 12:28 PM EDT EKG today HR 71,NSR, Qtc 424,only TWI in lead III ,intra-atrial /slight intraventricular conduction delay us Mariya Cho MD ECG ORDERABLES F inal Result * Hepatitis C Antibody with Reflex to HCV, RNA, Quantitative, Real-Time PCR (09/14/2024 4:32 PM EST) Hepatitis C Antibody Nonreactive Nonreactive [facility] Comment:Antibodies to HCV no t detected; does not exclude early acuteHCV infection. Blood Venous blood specimen / Unknown 09/14/2024 4:32 PM EST 09/14/2024 6:05 PM EST us Mariya Cho MD LAB BLOOD ORDERAB LES Final Result Performing Organization Address [facility]/State/ZIP Co de Phone Number [facility] [address] [place] [phone] * HIV-1/2 Antigen and Antibodies, Fourth Generation, with Reflexes (09/14/2024 4:32 PM EST) Pathologist [facility] HIV AB/AG Nonreactive Nonreactive [facility] Comment:HIV-1 p24 Ag and/or HIV-1/HIV-2 Ab not detected.A test result that is nonreactive does not exclude thepossibility of exposure to or infection with HIV-1 and/orHIV-2. Nonreactive results in this assay for individualswith prior exposure to HIV-1 and/or HIV-2 may be due toantigen and antibody levels that are below the limit ofdetection of this assay.The [employer] HIV Ag/Ab Combo assay result andsupplemental assay results should be interpreted inconjunction with the patient's clinical presentation,history and other laboratory results. If the results areinconsistent with clinical evidence, additional testing issuggested to confirm the result. Blood Venous blood specimen / Unknown 09/14/2024 4:32 PM EST 09/14/2024 6:05 PM EST us Mariya Cho MD LAB BLOOD ORDERAB LES Final Result [facility] [address] [place] [phone] * (ABNORMAL) Lipid Panel, Standard (09/14/2024 4:23 PM EST) Triglycerides 194(H) <150 mg/dL [facility] Comment:Desirable Triglyceri de: less than 150 mg/dLBorderline High Triglyceride 150-199 mg/dLHigh Triglyceride: 200-499 mg/dLVery High Triglyceride: greater than or equal to 5OO mg/dL Cholesterol 131 <200 mg/dL [facility] Comment:Desirable Cholestero l: less than 200 mg/dLBorderline High Cholesterol: 200-239 mg/dLHigh Cholesterol: greater than 239 mg/dL LDL Cholesterol Calculated 62 <100 mg/dL [facility] Comment:Desirable LDL: less than 100 mg/dLNear Optimal/Above Optimal LDL: 110- 129 mg/dLBorderline High LDL: 130-159 mg/dLHigh LDL: 160-189 mg/dLVery High LDL: greater than or equal to 190 mg/dL HDL Cholesterol 31(L) >40 mg/dL [facility] Comment:Desirable HDL: great er than 40 mg/dL Note: This HDL assay may give artificially low results in patients with liver disease. Blood Venous blood specimen / Unknown 09/14/2024 4:23 PM EST 09/14/2024 6:05 PM EST us Mariya Cho MD LAB BLOOD ORDERAB LES Final Result [facility] [address] [place] [phone] from Last 3 Months or Most Recently Relevant to Health Maintenance Insurance [facility] < 65 DEN[place] E[place]NDEZ [id number] Care Teams Loftsman Relationship Specialty Start Date End Date Mariya Juan MD [address] [place] [phone] PCP - General Internal Medicine 04/28/23
--- OUTSIDE RECORDS SUMMARY | 2025-09-05 17:18 | XMS_ITS | Encounter Summary ---
Author Organization [employer] Address [address] [facility] 7t [place] [address] Care Team Providers Care Chemical Radiation Technician Name Role Phone Mariya Juan MD Primary Care Pro vider Encounter Details Date Type Department Care Team ([facility] st Contact Info) Description 07/12/2025 Results Follow-Up [facility] [address] [place] [address] Mariya Juan MD [address] [place] [address] ~PT, ~INR - ANTI COAG CLINIC, PROTHROMBIN [...] the past 12 months, has t he [employer], gas, oil or water [employer] threatened to shut off services in your [...] 10/22/2025 9:00 AM EST Nutrition [facility] DIABETES/NUTRITION [address] [place] [address] [place] [address] 10/22/2025 11:15 AM EST Office Visit [facility] MEDICINE [address] [place] [phone] Mariya Juan MD [address] [place] [address] 12/09/2025 10:30 AM EST Office Visit [facility] [address] [place], [place] [phone] Ernestina Gayle, OD [address] [place], [place] [phone] documented as of this encounter Visit Diagnoses Not on filedocumented in this encounter Additional Health Concerns Assessment Noted Time PHQ-9 Depression Total Score: 12 024 2:22 PM EDT documented as of this encounter Care Teams Chemical Radiation Technician Relationship Specialty Start Date End Date Mariya Juan MD [address] [place], [place] [phone] PCP - General Internal Medicine 04/28/23 documented as of this encounter
--- OUTSIDE RECORDS SUMMARY | 2025-09-05 17:18 | XMS_ITS | Encounter Summary ---
Author Organization [employer] Address [address] [facility] 7t [place] [address] Care Team Providers Care Human Resources Vice President Name Role Phone Mariya Juan MD Primary Care Pro vider Reason for Visit * Reason Comments Med Refill Encounter Details Date Type Department Care Team (Late st Contact Info) Description 05/23/2023 Refill [facility] [address] [place], [place] [phone] Kay Dennis FNP Social History Tobacco Use [...] Info) Description 10/22/2025 9:00 AM EST Nutrition [facility] DIABETES/NUTRITION [address] [place], [place] [phone] Amena Fu, SAMMI [address] [place] [address] 10/22/2025 11:15 AM EST Office Visit [facility] [address] [place] [address] Mariya Juan MD [address] [place] [address] 12/09/2025 10:30 AM EST Office Visit [facility] OPTOMETRY [address] [place], [place] [phone] Ernestina Gayle, OD [address] [place], [place] [phone] documented as of this encounter Visit Diagnoses Not on filedocumented in this encounter Additional Health Concerns Assessment Noted Time PHQ-9 Depression Total Score: 6 04/28/20 23 2:32 PM EDT documented as of this encounter Care Teams Human Resources Vice President Relationship Specialty Start Date End Date Mariya Juan MD [address] [place], [place] [phone] PCP - General Internal Medicine 04/28/23 documented as of this encounter
--- OUTSIDE RECORDS SUMMARY | 2025-09-05 17:18 | XMS_ITS | Encounter Summary ---
Author Organization [employer] Address [address] [facility] 7t [place] [address] Care Team Providers Care Charcoal Burner Beehive Kiln Name Role Phone Kay Dennis Primary Care Provider Mariya Lombardi MD Primary Care Pro vider Encounter Details Date Type Department Care Team (Late Contact Info) Description 12/16/2022 Orders Only [facility] MEDICINE [address] [place], [place] [phone] Aida Villegas LPN Social History Tobacco Use [...] Info) Description 10/22/2025 9:00 AM EST Nutrition [facility] DIABETES/NUTRITION [address] [place], [place] [phone] Amena Fu [address] [place], [place] [phone] 10/22/2025 11:15 AM EST Office Visit [facility] MEDICINE [address] [place] [address] Mariya Juan MD 230 [place] [address] 12/09/2025 10:30 AM EST Office Visit [facility] OPTOMETRY [address] [place] [address] Shviarichard Ernestina, OD [address] [place] [address] documented as of this encounter Procedures Procedure Name Priority Date/Time Associated Diagnosis Comments PROTHROMBIN TIME WHOLE BLD POC Routine 12/16/2022 2:35 PM EST ~PT, ~INR - ANTI COAG CLINIC Routine 12/16/2022 2:35 PM EST documented in this encounter Results * (ABNORMAL) PROTHROMBIN TIME WHOLE BLD POC (12/16/2022 2:35 PM EST) Protime 45.7(H) 11.1 - 13.5 sec [facility] 12/16/2022 2:35 PM EST 12/16/2022 2:36 PM EST [facility] External Provider LAB BLO OD ORDERABLES Final Result [facility] [address] [place] [address] [phone] * (ABNORMAL) ~PT, ~INR - ANTI COAG CLINIC (12/16/2022 2:35 PM EST) Prothrombin Time INR 3.8(H) 0.9 - 1.1 [facility] Comment:METER #: [id number] TERNATIONAL NORMALIZED RATIO (INR) REFERENCE RANGES Reference [...] 2:35 PM EST 12/16/2022 2:36 PM EST [facility] External Provider LAB BLO OD ORDERABLES Final Result [facility] [address] [place] [address] [phone] documented in this encounter Visit Diagnoses Not on filedocumented in this encounter Care Teams Charcoal Burner Beehive Kiln Relationship Specialty Start Date End Date Kay Dennis FNP PCP - General Family Medicine 07/05/22 04/27/23 Mariya Juan MD [address] [place] [address] PCP - General Internal Medicine 04/28/23 documented as of this encounter
--- OUTSIDE RECORDS SUMMARY | 2025-09-05 17:18 | XMS_ITS | Encounter Summary ---
Author Organization [employer] Address 75 [facility] 7t [place] [address] Care Team Providers Care Lottery Sales Clerk Name Role Phone Mariya Juan MD Primary Care Pro vider Encounter Details Date Type Department Care Team ([facility] st Contact Info) Description 07/15/2025 Results Follow-Up [facility] MEDICINE [address] [place] [address] Mariya Juan MD 230 [place] [address] ~PT, ~INR - ANTI COAG CLINIC, PROTHROMBIN [...] the past 12 months, has t he [employer], gas, oil or water [employer] threatened to shut off services in your [...] Info) Description 10/22/2025 9:00 AM EST Nutrition [facility] DIABETES/NUTRITION [address] [place] [phone] [place], [place] [phone] 10/22/2025 11:15 AM EST Office Visit [facility] MEDICINE [address] [place] [phone] Mariya Juan MD 230 [place] [address] 12/09/2025 10:30 AM EST Office Visit [facility] OPTOMETRY [address] [place], [place] [phone] Ernestina Gayle, OD [address] [place] [address] documented as of this encounter Visit Diagnoses Not on filedocumented in this encounter Additional Health Concerns Assessment Noted Time PHQ-9 Depression Total Score: 12 024 2:22 PM EDT documented as of this encounter Care Teams Lottery Sales Clerk Relationship Specialty Start Date End Date Mariya Juan MD [address] [place] [address] [phone] PCP - General Internal Medicine 04/28/23 documented as of this encounter
--- OUTSIDE RECORDS SUMMARY | 2025-09-05 17:18 | XMS_ITS | Encounter Summary ---
Author Organization [employer] Address 75 [facility] 7 [place] [address] Care Team Providers Care Respiratory Therapy Manager Name Role Phone Mariya Juan MD Primary Care Pro vider Reason for Visit * Reason Onset Date Comments Med Refill 04/20/2024 Encounter Details Date Type Department Care Team ([facility] st Contact Info) Description 04/20/2024 Telephone [facility] MEDICINE 230 [place], [place] [phone] Mariya Juan MD 230 [place] [address] Med Refill Social History Tobacco Use Types [...] EDT Telephone call placed to Freida at [facility] Coumadin clinic. Gave orders to continue [...] PM EDT Received call from Freida from [facility] coumadin clinic. Pt back today for recheck, [...] 04/20/2024 4:01 PM EDT TC placed to [facility] Anticoagulation to inquire when pt last got [...] solution prefilled syringe To be sent to: [id number] - [facility] [address] [facility] documented in this encounter Plan of Treatment Upcoming Encounters Date Type Department Care Team (Late st Contact Info) Description 10/22/2025 9:00 AM EST Nutrition [facility] DIABETES/NUTRITION [address] [place] [phone] [place] [phone] 10/22/2025 11:15 AM EST Office Visit [facility] MEDICINE [address] [place] [phone] Mariya Juan MD 230 [place] [address] 12/09/2025 10:30 AM EST Office Visit [facility] OPTOMETRY [address] [place], [place] [phone] Ernestina Gayle, OD [address] [place], [place] [phone] documented as of this encounter Visit Diagnoses Not on filedocumented in this encounter Additional Health Concerns Assessment Noted Time PHQ-9 Depression Total Score: 6 04/28/20 23 2:32 PM EDT documented as of this encounter Care Teams Respiratory Therapy Manager Relationship Specialty Start Date End Date Mariya Juan MD [address] [place] [address] [phone] PCP - General Internal Medicine 04/28/23 documented as of this encounter
--- OUTSIDE RECORDS SUMMARY | 2025-09-05 17:18 | XMS_ITS | Encounter Summary ---
Author Organization [employer] Address 75 [facility] 7t [place] [address] Care Team Providers Care Utilization Management Manager Name Role Phone Mariya Juan MD Primary Care Pro vider Encounter Details Date Type Department Care Team ([facility] st Contact Info) Description 07/26/2025 Results Follow-Up [facility] MEDICINE 230 [place] [address] Mariya Juan MD 230 [place] [address] ~PT, ~INR - ANTI COAG CLINIC, PROTHROMBIN [...] the past 12 months, has t he [employer], gas, oil or water [employer] threatened to shut off services in your [...] Info) Description 10/22/2025 9:00 AM EST Nutrition [facility] DIABETES/NUTRITION [address] [place] [phone] [place], [place] [phone] 10/22/2025 11:15 AM EST Office Visit [facility] MEDICINE [address] [place] [phone] Mariya Juan MD 230 [place] [address] 12/09/2025 10:30 AM EST Office Visit [facility] 267 [place], [place] [phone] Ernestina Gayle, OD 267 [place] [address] documented as of this encounter Visit Diagnoses Not on filedocumented in this encounter Additional Health Concerns Assessment Noted Time PHQ-9 Depression Total Score: 12 024 2:22 PM EDT documented as of this encounter Care Teams Utilization Management Manager Relationship Specialty Start Date End Date Mariya Juan MD [address] [place] [address] [phone] PCP - General Internal Medicine 04/28/23 documented as of this encounter
== END 2025-09-05 14:57 | disposition home or self-care (01) ==
LOC: HO.HGI 14:17
PROVIDERS: PCP Student in an Organized Health Care Education/Training Program; Visit Provider Nurse Practitioner Family
DX: K59.09 Other constipation (principal); K21.9 Gastro-esophageal reflux disease without esophagitis; R79.89 Other specified abnormal findings of blood chemistry; D64.9 Anemia, unspecified
CPT/HCPCS: 99204

== ENCOUNTER → 2025-09-05 14:16 | Outpatient (BNVA) | payer OTHER, SELFPAY | PROVIDERS: PCP Student in an Organized Health Care Education/Training Program; Visit Provider Nurse Practitioner Family | DX: K59.09 Other constipation (principal); K21.9 Gastro-esophageal reflux disease without esophagitis; D64.9 Anemia, unspecified; R79.89 Other specified abnormal findings of blood chemistry | CPT/HCPCS: 99202 ==

== ENCOUNTER 2025-09-18 09:53 | Outpatient (AMB) | payer OTHER, SELFPAY ==
[2025-09-18 10:14] LABS: Prothrombin Time Whole Bld POC 69.2 sec (11.1-13.5); ~PT, ~INR - Anti Coag Clinic 5.8 (0.9-1.1)
--- NOTE | 2025-09-18 10:26 | MHC.OFFVISCO ---
Intake Intake Visit Reasons: Anticoagulation Allergies hydrocodone (From VICODIN) Allergy (Unknown, Verified 09/18/25 10:09) GI UPSET Medication List - Last Reconciled 09/18/25 by Trinh Giron RN acetaminophen 325 mg PO QID PRN 7 days acetaminophen ER (Tylenol Arthritis Pain) 1,300 mg PO Q8H PRN albuterol sulfate 90 mcg/actuation (ProAir HFA) 2 puffs inhalation Q4-6H PRN atorvastatin 20 mg PO DAILY blood pressure test kit-large As directed buprenorphine-naloxone 8-2 mg (Suboxone) 1 film sublingual BID celecoxib (Celebrex) 200 mg PO DAILY PRN coenzyme Q10 (Co Q-10) PO fluticasone propionate 50 mcg/actuation sprays intranasal PRN hydroxyzine pamoate 25 mg PO TID inhalational spacing device (T-VIPSber [place]ascale [facility] spacer) As directed loratadine 10 mg PO DAILY melatonin 5 mg PO BEDTIME PRN omeprazole 20 mg PO DAILY ondansetron HCl 4 mg PO Q8H PRN polyethylene glycol 3350 (Miralax) 17 grams PO DAILY sodium chloride 0.65% (Deep Sea Nasal) sprays intranasal warfarin 7.5 mg See Protocol PO 2XW warfarin 10 mg See Protocol PO 5XW Nursing Note PT.STATES THAT HE ATE A [employer] SIZE BAG OF GRAPES 1-2 DAYS AGO WHICH IS LIKELY THE CAUSE OF ELEVATED INR TODAY. HE OTHERWISE DENIES ANY CP,SOB OR SX OF BLEEDING. NO MED CHANGES OR RECENT ILLNESS. HOLD WARFARIN TODAY, 5MG TOMORROW AND RECHECK INR HERE ON 09/20/25. INR AND PLAN OF CARE REPORTED TO PCP(YIN) AT 10:23AM. PT.WILL BE SURE TO HAVE DARK GREENS TODAY AND TOMORROW, AND VERB.GOOD UNDERSTANDING OF DOSING INSTR. Anti-Coag Initial Assessment Social Hx Patient Tobacco Use Status: Former Tobacco user Tobacco use type: Cigarette alcohol intake: never Alcohol intake frequency: does not drink Coding Level of Care Code Est Patient Level 1 Diagnoses Current use of anticoagulant therapy Z79.01 Assessment & Plan Assessment & Plan (1) Current use of anticoagulant therapy: Code(s): Z79.01 - records assistant (current) 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
--- OUTSIDE RECORDS SUMMARY | 2025-09-18 11:22 | XMS_ITS | Clinical Summary ---
Author Organization [employer] Address 75 [facility] 7t [place] [address] Care Team Providers Care Drill Rig Operator Name Role Phone Mariya Juan MD [...] THE WEEK. 60 tablet 2 025 Active warfarin (Coumadin) 5 MG tabletIndications :Mechanical heart valve present TAKE 2 TABLETS BY MOUTH EVERY TUESDAY, TUESDAY, TUESDAY, TUESDAY, AND TUESDAY. MAY BE ADJUSTED BY COUMADIN CLINIC IN THE FUTURE. 60 tablet 3 025 Active polyethylene glycol, PEG, 3350 (MiraLax) [...] or more 6 mL 2 025 Active albuterol (2.5 MG/3ML) 0.083% nebulizer solutionIndicatio [...] day. 30 tablet 2 025 2025 Active hydrOXYzine pamoate (Vistaril) 25 MG capsuleIndication s:Anxiety state TAKE 1 CAPSULE BY MOUTH EVERY 8 HOURS NEEDED FOR ANXIETY 90 capsule 1 Active hydrOXYzine pamoate (Vistaril) 25 MG capsuleIndication s:Anxiety state TAKE 1 CAPSULE BY MOUTH EVERY 8 HOURS NEEDED FOR ANXIETY 90 capsule 1 025 2024 Discontinued(R eorder (will not trigger notification to Pharmacy)) Active Problems Problem Noted Date Diagnosed Date Right hemiparesis (CMS/HCC) 08/11/2025 Transaminitis 08/11/2025 Moderate major depression (CMS/HCC) 08/09/2025 Obesity 07/24/2024 Onychomycosis 07/24/2024 Movement disorder 07/24/2024 Attention deficit hyperactiv ity disorder (ADHD), predominantly hyperactive type 07/24/2024 Loud snoring 07/24/2024 Right arm weakness 04/28/2023 Overview (04/28/2023): Was seen at [facility] on 08/17/22 with noted nausea, diaphoresis in exam room, discomfort, profound fatigue, referred to [facility] ED now. Went to [facility] ED on 08/18/22 and was admitted for infection and started antibiotics. Blood cultures on 08/18/22 and 08/20/22 grew MSSA. 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 Plan was to transfer [facility]. Transferred to [facility] on 08/21/22 for further management of infective [...] bleed improving Has PT in home through [facility]. Assessment & Plan (04/28/2023 10:03 PM EDT): Pt completing OT soon Will refer pt to OT [facility] Core again Continue hand exercises Followup 3 month or sooner PRN with new PCP Intraparenchymal hemorrhage of brain (CMS/HCC) 0 04/28/2023 Overview (04/28/2023): Was seen at [facility] on 08/17/22 with noted nausea, diaphoresis in exam room, discomfort, profound fatigue, referred to [facility] ED now. Went to [facility] ED on 08/18/22 and was admitted for infection and started antibiotics. Blood cultures on 08/18/22 and 08/20/22 grew MSSA. 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 Plan was to transfer [facility]. Transferred to [facility] on 08/21/22 for further management of infective [...] endocarditis 11/03/2022 Overview (04/28/2023): Was seen at [facility] on 08/17/22 with noted nausea, diaphoresis in exam room, discomfort, profound fatigue, referred to [facility] ED now. Went to [facility] ED on 08/18/22 and was admitted for infection and started antibiotics. Blood cultures on 08/18/22 and 08/20/22 grew MSSA. 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 Plan was to transfer [facility]. Transferred to [facility] on 08/21/22 for further management of infective [...] Coumadin clinic, PCP and specialists Substance abuse ([facility]) 11/06/2014 Overview (04/28/2023): Last used Percocet 2013. [...] organization. Date Type Department Care Team Description 09/18/2025 Telephone [facility] [address] [place] [phone] Mariya Juan MD CRITICAL LAB 09/18/2025 Orders Only GENERIC EXTERNAL DATA DEPARTMENT Provider, Generic External Data 09/13/[address] [address] Mariya Juan MD Nurse Triage 09/13/[address] [address] Mariya Juan MD Anxiety state 08/16/2025 Results Follow-Up [address] [address] Mariya Jaun MD ~PT, ~INR - ANTI COAG CLINIC, PROTHROMBIN TIME WHOLE BLD POC 08/16/2025 Orders Only GENERIC EXTERNAL DATA DEPARTMENT Provider, Generic External Data 08/12/2025 Travel 08/11/2025 Orders Only [facility] [address] [place] [address] Mariya Juan MD 08/09/2025 10:45 AM EDT Office [place] [address] Mariya Juan MD Class 1 obesity due [...] Right hemiparesis (CMS/HCC) (HCC); Substance abuse (CMS/HCC) ([facility]); History of prosthetic heart valve; Health care maintenance; Mild major depression (CMS/HCC); Anxiety; Right arm weakness; Intraparenchymal hemorrhage of brain (CMS/HCC) ([facility]); Transaminitis 08/09/2025 Patient Outreach [facility] [address] [place] [address] Mariya Juan MD Care Coordination (CHW outreach for SDOH PT-1 and food needs-referral completed /) 08/09/2025 Telephone [facility] [address] [address] [place] [address] Mariya Juan MD Pre OP note 08/09/2025 Travel 08/08/2025 Telephone [facility] [address] [place] [address] Mariya Juan MD chart prep 07/26/2025 Results Follow-Up [facility] [address] [place] [address] Mariya Juan MD ~PT, ~INR - ANTI COAG CLINIC, PROTHROMBIN TIME WHOLE BLD POC 07/26/2025 Orders Only GENERIC EXTERNAL DATA DEPARTMENT Provider, Generic External Data 07/15/2025 Results Follow-Up [facility] [address] [place] [address] Mariya Juan MD ~PT, ~INR - ANTI COAG CLINIC, PROTHROMBIN TIME WHOLE BLD POC 07/15/2025 Orders Only GENERIC EXTERNAL DATA DEPARTMENT Provider, Generic External Data 07/12/2025 Results Follow-Up [facility] [address] [place] [place] [address] Mariya Juan MD ~PT, ~INR - ANTI COAG CLINIC, PROTHROMBIN TIME WHOLE BLD POC 07/12/2025 Orders Only [facility] [address] [place], [place] [phone] Mariya Juan MD Hx of prosthetic mitral valve 07/12/2025 Telephone [facility] [address] [facility], [place] [phone] Mariya Juan MD Critical INR 07/12/2025 Orders Only GENERIC EXTERNAL DATA DEPARTMENT Provider, Generic External Data 07/04/2025 Results Follow-Up [facility] [address] [address] Mariya Juan MD ~PT, ~INR - ANTI COAG CLINIC, PROTHROMBIN TIME WHOLE BLD POC 07/03/2025 Orders Only GENERIC EXTERNAL DATA DEPARTMENT Provider, Generic External Data from Last 3 Months Immunizations Immunization Administration Dates Next Due DTaP 07/18/1989, 7,12/20/1986,11/19 Hep B, Adolescent or Pediatric 12/10/1998,1997,1998 Hib ([facility]) 10/20/1987 Influenza injectable quadriv alent IIV4 [...] Info) Description 10/22/2025 9:00 AM EST Nutrition [facility] DIABETES/NUTRITION [address] [place] [phone] [place] [address] 10/22/2025 11:15 AM EST Office Visit [facility] [address] [place] [address] [phone] Mariya Juan MD 230 [place] [address] 12/09/2025 10:30 AM EST Office Visit [facility] [address] [place], [place] [phone] Ernestina Gayle, KRISTINA [address] [place] [address] Health Maintenance Due Date Last Done Comments Meningococcal Vaccine (1 - Risk 2-dose series) 1987 Meningococcal B Vaccine (1 of 4 - Increased Risk) 1995 Family Planning (PISQ) 2000 HPV Vaccines (1 [...] Comments PROTHROMBIN TIME WHOLE BLD POC Routine 09/18/2025 10:11 AM EST ~PT, ~INR - ANTI COAG CLINIC Routine 09/18/2025 10:11 AM EST PROTHROMBIN TIME WHOLE BLD POC Routine 08/16/2025 [...] COAG CLINIC Routine 07/03/2025 11:32 AM EDT HEPATITIS C AB W/REFL TO HCV RNA, QN, PCR Routine 09/14/2024 4:32 PM EST Annual physical exam HIV 1/2 ANTIGEN/ANTIBODY, FOURTH GENERATION W/RFL Routine 09/14/2024 4:32 PM EST Annual physical exam LIPID PANEL, STANDARD Routine 09/14/2024 4:23 PM EST Annual physical exam from Last 3 Months or Most Recently Relevant to Health Maintenance Results * (ABNORMAL) PROTHROMBIN TIME WHOLE BLD POC (09/18/2025 10:11 AM EST) Only the most recent of6 resultswithin the time period is included. Protime 69.2(H) 11.1 - 13.5 sec [facility] 09/18/2025 10:1 1 AM EST 09/18/2025 10:13 AM EST us Generic External Data Provider LAB BLOOD ORDERAB LES Final Result Performing Organization Address [facility] Co de Phone Number [facility] [address] [place] [phone] * (ABNORMAL) ~PT, ~INR - ANTI COAG CLINIC (09/18/2025 10:11 AM EST) Only the most recent of6 resultswithin the time period is included. Prothrombin Time INR 5.8(HH) 0.9 - 1.1 [facility] Comment:METER #: [id number] TERNATIONAL NORMALIZED RATIO (INR) REFERENCE RANGES Reference RangeFor patients not on anticoagulant therapy: 0.9 - 1.1INR ranges for oral anticoagulanttherapy:For prevention and treatment of venous thrombosis and pulmonary embolism: 2.0 - 3.0For acute myocardial infarction with aspirin therapy: 2.0 - 3.0For acute myocardial infarction without aspirin therapy: 3.0 - 4.0For patients with mechanical prosthetic heart valves: 2.5 - 3.5 09/18/2025 10:1 1 AM EST 09/18/2025 10:13 AM EST us Generic External Data Provider LAB BLOOD ORDERAB LES Final Result Performing Organization Address [facility] Co de Phone Number [facility] [address] [place] [phone] * ECG 12 lead (08/09/2025 12:28 PM EDT) Narrative Mariya Juan MD - 08/09/2025 12:28 PM EDT EKG today HR 71,NSR, Qtc 424,only TWI in lead III ,intra-atrial /slight intraventricular conduction delay us Mariya Cho MD ECG ORDERABLES F inal Result * Hepatitis C Antibody with Reflex to HCV, RNA, Quantitative, Real-Time PCR (09/14/2024 4:32 PM EST) Hepatitis C Antibody Nonreactive Nonreactive [facility] Comment:Antibodies to HCV no t detected; does not exclude early acuteHCV infection. Blood Venous blood specimen / Unknown 09/14/2024 4:32 PM EST 09/14/2024 6:05 PM EST us Mariya Cho MD LAB BLOOD ORDERAB LES Final Result [facility] [address] [place] [phone] * HIV-1/2 Antigen and Antibodies, Fourth Generation, with Reflexes (09/14/2024 4:32 PM EST) HIV AB/AG Nonreactive Nonreactive [facility] Comment:HIV-1 p24 Ag and/or HIV-1/HIV-2 Ab not detected.A test result that is nonreactive does not exclude thepossibility of exposure to or infection with HIV-1 and/orHIV-2. Nonreactive results in this assay for individualswith prior exposure to HIV-1 and/or HIV-2 may be due toantigen and antibody levels that are below the limit ofdetection of this assay.The Qovia HIV Ag/Ab Combo assay result andsupplemental assay [...] Result Performing Organization Address [facility]/ZIP Co de Phone Number [facility] [address] [place] [phone] * (ABNORMAL) Lipid Panel, Standard (09/14/2024 4:23 PM EST) Triglycerides 194(H) <150 mg/dL [facility] Comment:Desirable Triglyceri de: less than 150 mg/dLBorderline High Triglyceride 150-199 mg/dLHigh Triglyceride: 200-499 mg/dLVery High Triglyceride: greater than or equal to 5OO mg/dL Cholesterol 131 <200 mg/dL [facility] Comment:Desirable Cholestero l: less than 200 mg/dLBorderline High Cholesterol: 200-239 mg/dLHigh Cholesterol: greater than 239 mg/dL LDL Cholesterol Calculated 62 <100 mg/dL [facility] Comment:Desirable LDL: less than 100 mg/dLNear Optimal/Above Optimal LDL: 110- 129 mg/dLBorderline High LDL: 130-159 mg/dLHigh LDL: 160-189 mg/dLVery High LDL: greater than or equal to 190 mg/dL HDL Cholesterol 31(L) >40 mg/dL [facility] Comment:Desirable HDL: great er than 40 mg/dL Note: This HDL assay may give artificially low results in patients with liver disease. Blood Venous blood specimen / Unknown 09/14/2024 4:23 PM EST 09/14/2024 6:05 PM EST Mariya Cho MD LAB BLOOD ORDERAB LES Final Result Performing Organization Address City/[facility]/ZIP Co de Phone Number [facility] [address] [place] [phone] from Last 3 Months or Most Recently Relevant to Health Maintenance Insurance [id number] < 65 [place] [id number] Care Teams Drill Rig Operator Relationship Specialty Start Date End Date Mariya Juan MD [address] [place] [phone] PCP - General Internal Medicine 04/28/23
--- OUTSIDE RECORDS SUMMARY | 2025-09-18 11:22 | XMS_ITS | Encounter Summary ---
Author Organization [employer] Address 75 [facility] 7t [place] [address] Care Team Providers Care Perforator Operator Name Role Phone Mariya Juan MD Primary Care Pro vider Reason for Visit * Reason Comments Med Refill Encounter Details Date Type Department Care Team (Late st Contact Info) Description 05/23/2023 Refill [facility] MEDICINE 230 [place], [place] [phone] Kay Dennis FNP Social History Tobacco Use [...] 10/22/2025 9:00 AM EST Nutrition [facility] DIABETES/NUTRITION 230 [place], [place] [phone] Amena Fu, SAMMI 230 [place] [address] 10/22/2025 11:15 AM EST Office Visit [facility] MEDICINE 230 [place] [address] Mariya Juan MD 230 [place] [address] 12/09/2025 10:30 AM EST Office Visit [facility] OPTOMETRY [address] [place], [place] 1600140 Ernestina Gayle, OD 267 [place], [place] [phone] documented as of this encounter Visit Diagnoses Not on filedocumented in this encounter Additional Health Concerns Assessment Noted Time PHQ-9 Depression Total Score: 6 04/28/20 23 2:32 PM EDT documented as of this encounter Care Teams Perforator Operator Relationship Specialty Start Date End Date Mariya Juan MD 230 [place], [place] [phone] PCP - General Internal Medicine 04/28/23 documented as of this encounter
--- OUTSIDE RECORDS SUMMARY | 2025-09-18 11:22 | XMS_ITS | Encounter Summary ---
Author Organization [employer] Address [address] [place] [address] 7 [place] [address] Care Team Providers Care Explosives Mixer Operator Name Role Phone Mariya Juan MD Primary Care Pro vider Reason for Visit * Reason Onset Date Comments CRITICAL LAB 09/18/2025 Encounter Details Date Type Department Care Team ([facility] st Contact Info) Description 09/18/2025 Telephone [facility] PEDIATRICS 230 [place] [address] Mariya Juan MD [address] [place] [address] CRITICAL LAB Social History Tobacco Use Types Packs/Day Years [...] is your housing situation today? I have anncy infante 08/09/[address] you [...] the past 12 months, has t he [employer], gas, oil or water company threatened to [...] Telephone Encounter - Olga Mendes RN - 09/18/2025 10:38 AM EST Pt with frequent INR fluctuations. Frequently out of therapeutic range. RN agrees with coumadin nurse instruction below. Per [facility] protocol, will send to provider to notify if they wish to make any changes to plan. * Telephone Encounter - Regina Garibay RN - 09/18/2025 10:24 AM EST TC incoming from [facility] at [facility] coumadin clinic INR is 5.8 (pt range is 2.5-3.5) Pt ate a lot of grapes. No dosage today, 5 mg tomorrow and return Tuesday to recheck. Will route to PCP and team nurses to advise. Olga FERNÁNDEZ aware. documented in this encounter Plan of Treatment Upcoming Encounters Date Type Department Care Team (Late st Contact Info) Description 10/22/2025 9:00 AM EST Nutrition [facility] DIABETES/NUTRITION [address] [place] [address] 230 [place] [address] 10/22/2025 11:15 AM EST Office Visit [facility] MEDICINE 230 [place] [address] Mariya Juan MD [address] [place] [address] 12/09/2025 10:30 AM EST Office Visit [facility] OPTOMETRY 267 [place], [place] [phone] Ernestina Gayle, OD 267 [place] [address] documented as of this encounter Visit Diagnoses Not on filedocumented in this encounter Additional Health Concerns Assessment Noted Time PHQ-9 Depression Total Score: 14 025 11:30 AM EDT documented as of this encounter Care Teams Explosives Mixer Operator Relationship Specialty Start Date End Date Mariya Juan MD [address] [place] [address] [phone] PCP - General Internal Medicine 04/28/23 documented as of this encounter
--- OUTSIDE RECORDS SUMMARY | 2025-09-18 11:22 | XMS_ITS | Encounter Summary ---
Author Organization [employer] Address 75 [facility] 7t [place] [address] Care Team Providers Care Embossing Press Operator Name Role Phone Mariya Juan MD Primary Care Pro vider Encounter Details Date Type Department Care Team ([facility] st Contact Info) Description 07/26/2025 Results Follow-Up [facility] MEDICINE 230 [place] [address] Mariya Juan MD 230 [place] [address] ~PT, ~INR - ANTI COAG CLINIC, PROTHROMBIN [...] the past 12 months, has t he [employer], gas, oil or water [email or web address] threatened to shut off services in your [...] Info) Description 10/22/2025 9:00 AM EST Nutrition [facility] DIABETES/NUTRITION [address] [place] [phone] 230 [place], [place] [phone] 10/22/2025 11:15 AM EST Office Visit [facility] MEDICINE [address] [place] [phone] Mariya Juan MD 230 [place] [address] 12/09/2025 10:30 AM EST Office Visit [facility] OPTOMETRY 267 [place], [place] [phone] Ernestina Gayle, OD 267 [place] [address] documented as of this encounter Visit Diagnoses Not on filedocumented in this encounter Additional Health Concerns Assessment Noted Time PHQ-9 Depression Total Score: 12 024 2:22 PM EDT documented as of this encounter Care Teams Embossing Press Operator Relationship Specialty Start Date End Date Mariya Juan MD [address] [place] [address] [phone] PCP - General Internal Medicine 04/28/23 documented as of this encounter
--- OUTSIDE RECORDS SUMMARY | 2025-09-18 11:22 | XMS_ITS | Encounter Summary ---
Author Organization [employer] Address [address] 7t [place] [address] Care Team Providers Care Filament Coil Winder Name Role Phone Mariya Juan MD Primary Care Pro vider Encounter Details Date Type Department Care Team (Late st Contact Info) Description 09/18/2025 Orders Only GENERIC EXTERNAL DATA DEPARTMENT [...] 10/22/2025 9:00 AM EST Nutrition [facility] DIABETES/NUTRITION [address] [place] [phone] Amena Fu, SAMMI 230 [place] [address] 10/22/2025 11:15 AM EST Office Visit [facility] MEDICINE [address] [place] [address] Mariya Juan MD 230 [place] [address] 12/09/2025 10:30 AM EST Office Visit [facility] OPTOMETRY 267 [place] [address] Ernestina Gayle, OD 267 [place] [address] documented as of this encounter Procedures Procedure Name Priority Date/Time Associated Diagnosis Comments PROTHROMBIN TIME WHOLE BLD POC Routine 09/18/2025 10:11 AM EST ~PT, ~INR - ANTI COAG CLINIC Routine 09/18/2025 10:11 AM EST documented in this encounter Results * (ABNORMAL) PROTHROMBIN TIME WHOLE BLD POC (09/18/2025 10:11 AM EST) Protime 69.2(H) 11.1 - 13.5 sec [facility] 09/18/2025 10:1 1 AM EST 09/18/2025 10:13 AM EST us Generic External Data Provider LAB BLOOD ORDERAB LES Final Result Performing Organization Address [facility] de Phone Number [facility] [address] [place] [phone] * (ABNORMAL) ~PT, ~INR - ANTI COAG CLINIC (09/18/2025 10:11 AM EST) Prothrombin Time INR 5.8(HH) 0.9 - 1.1 [facility] Comment:METER #: [id number] TERNATIONAL NORMALIZED RATIO (INR) REFERENCE RANGES Reference [...] LES Final Result Performing Organization Address [facility] de Phone Number [facility] [address] [place] [phone] documented in this encounter Visit Diagnoses Not on filedocumented in this encounter Additional Health Concerns Assessment Noted Time PHQ-9 Depression Total Score: 14 025 11:30 AM EDT documented as of this encounter Care Teams Filament Coil Winder Relationship Specialty Start Date End Date Mariya Juan MD [address] [place] [phone] PCP - General Internal Medicine 04/28/23 documented as of this encounter
--- OUTSIDE RECORDS SUMMARY | 2025-09-18 11:22 | XMS_ITS | Encounter Summary ---
Author Organization [employer] Address [address] [place] [address] 7 [place] [address] Care Team Providers Care Food Analyst Name Role Phone Mariya Juan MD Primary Care Pro vider Reason for Visit * Reason Onset Date Comments Med Refill 01/08/2025 Encounter Details Date Type Department Care Team ([facility] st Contact Info) Description 01/08/2025 Telephone [facility] MEDICINE 230 [place] [address] Mariya Juan MD 230 [place] [address] Med Refill Social History Tobacco Use Types [...] solution prefilled syringe To be sent to: [id number] [address] [facility] documented in this encounter Plan of Treatment Upcoming Encounters Date Type Department Care Team ([facility] st Contact Info) Description 10/22/2025 9:00 AM EST Nutrition [facility] DIABETES/NUTRITION 230 [place], [place] [phone] Amena Fu RD 230 [place], [place] [phone] 10/22/2025 11:15 AM EST Office Visit [facility] MEDICINE 230 [place] [address] Mariya Juan MD 230 [place], [place] [phone] 12/09/2025 10:30 AM EST Office Visit [facility] OPTOMETRY 267 [place] [address] Ernestina Gayle, OD [address] [place], [place] [phone] documented as of this encounter Visit Diagnoses Not on filedocumented in this encounter Additional Health Concerns Assessment Noted Time PHQ-9 Depression Total Score: 12 024 2:22 PM EDT documented as of this encounter Care Teams Food Analyst Relationship Specialty Start Date End Date Mariya Juan MD 230 [place], [place] [phone] PCP - General Internal Medicine 04/28/23 documented as of this encounter
--- OUTSIDE RECORDS SUMMARY | 2025-09-18 11:22 | XMS_ITS | Encounter Summary ---
Author Organization [employer] Address 75 [facility] 7 [place] [address] Care Team Providers Care Public Events Facilities Rental Manager Name Role Phone Mariya Juan MD Primary Care Pro vider Reason for Visit * Reason Onset Date Comments Med Refill 04/20/2024 Encounter Details Date Type Department Care Team ([facility] st Contact Info) Description 04/20/2024 Telephone [facility] MEDICINE 230 [place], [place] [phone] Mariya Juan MD 230 [place] [address] Med Refill Social History Tobacco Use Types [...] EDT Telephone call placed to Freida at [facility] Coumadin clinic. Gave orders to continue [...] PM EDT Received call from Freida from [facility] coumadin clinic. Pt [...] 04/20/2024 4:01 PM EDT TC placed to [facility] Anticoagulation to inquire when pt last got INR drawn. According to the traffic lieutenant the pt was to come for a [...] solution prefilled syringe To be sent to: [facility][id number] - [facility] [address] [facility] documented in this encounter Plan of Treatment Upcoming Encounters Date Type Department Care Team (Late st Contact Info) Description 10/22/2025 9:00 AM EST Nutrition [facility] DIABETES/NUTRITION [address] [place] [address] [place] [address] 10/22/2025 11:15 AM EST Office Visit [facility] MEDICINE [address] [place] [phone] Mariya Juan MD 230 [place] [address] 12/09/2025 10:30 AM EST Office Visit [facility] OPTOMETRY 267 [place], [place] [phone] Ernestina Gayle, OD 267 [place], [place] [phone] documented as of this encounter Visit Diagnoses Not on filedocumented in this encounter Additional Health Concerns Assessment Noted Time PHQ-9 Depression Total Score: 6 04/28/20 23 2:32 PM EDT documented as of this encounter Care Teams Public Events Facilities Rental Manager Relationship Specialty Start Date End Date Mariya Juan MD [address] [place] [address] [phone] PCP - General Internal Medicine 04/28/23 documented as of this encounter
--- OUTSIDE RECORDS SUMMARY | 2025-09-18 11:22 | XMS_ITS | Encounter Summary ---
Author Organization [employer] Address 75 [facility] 7t [place] [address] Care Team Providers Care Pretzel Twisting Machine Operator Name Role Phone Kay Dennis Primary Care Provider Mariya Lombardi MD Primary Care Pro vider Encounter Details Date Type Department Care Team (Late Contact Info) Description 12/16/2022 Orders Only [facility] MEDICINE 230 [place], [place] [phone] Aida Villegas LPN Social History Tobacco Use [...] Info) Description 10/22/2025 9:00 AM EST Nutrition [facility] DIABETES/NUTRITION 230 [place], [place] [phone] Amena Fu RD 230 [place], [place] [phone] 10/22/2025 11:15 AM EST Office Visit [facility] MEDICINE 230 [place] [address] Mariya Juan MD 230 [place] [address] 12/09/2025 10:30 AM EST Office Visit [facility] OPTOMETRY 267 [place] [address] Shivarichard Ernestina, OD 267 [place] [address] documented as of this encounter Procedures Procedure Name Priority Date/Time Associated Diagnosis Comments PROTHROMBIN TIME WHOLE BLD POC Routine 12/16/2022 2:35 PM EST ~PT, ~INR - ANTI COAG CLINIC Routine 12/16/2022 2:35 PM EST documented in this encounter Results * (ABNORMAL) PROTHROMBIN TIME WHOLE BLD POC (12/16/2022 2:35 PM EST) Protime 45.7(H) 11.1 - 13.5 sec [facility] 12/16/2022 2:35 PM EST 12/16/2022 2:36 PM EST [facility] External Provider LAB BLO OD ORDERABLES Final Result [facility] [address] [place] [address] [phone] * (ABNORMAL) ~PT, ~INR - ANTI COAG CLINIC (12/16/2022 2:35 PM EST) Prothrombin Time INR 3.8(H) 0.9 - 1.1 [facility] Comment:METER #: [id number] TERNATIONAL NORMALIZED RATIO (INR) REFERENCE RANGES Reference [...] 2:35 PM EST 12/16/2022 2:36 PM EST [facility] External Provider LAB BLO OD ORDERABLES Final Result [facility] [address] [place] [address] [phone] documented in this encounter Visit Diagnoses Not on filedocumented in this encounter Care Teams Pretzel Twisting Machine Operator Relationship Specialty Start Date End Date Kay Dennis FNP PCP - General Family Medicine 07/05/22 04/27/23 Mariya Juan MD 230 [place] [address] PCP - General Internal Medicine 04/28/23 documented as of this encounter
--- OUTSIDE RECORDS SUMMARY | 2025-09-18 11:22 | XMS_ITS | Encounter Summary ---
Author Organization [employer] Address [address] [place] [address] 7 [place] [address] Care Team Providers Care Exerciser Horse Name Role Phone Mariya Juan MD Primary Care Pro vider Reason for Visit * Reason Onset Date Comments Med Refill 09/13/2025 Encounter Details Date Type Department Care Team (Late st Contact Info) Description 09/13/2025 Refill [facility] MEDICINE 230 [place] [address] Mariya Juan MD 230 [place] [address] Anxiety state Social History Tobacco Use Types Packs/Day Years [...] the past 12 months, has t he [employer], gas, oil or water company threatened to [...] encounter Miscellaneous Notes * Telephone Encounter - Aida Villegas LPN - 09/13/2025 1:40 PM EST PCP OFF.Last seen 08.09.25 * Telephone Encounter - Javon Hendrickson - 09/13/2025 1:37 PM EST TC from pt requesting medication refill. Medications needing refill : hydrOXYzine pamoate (Vistaril) 25 MG capsule To be sent to: [id number] - [place], [place] - [address] [facility] documented in this encounter Plan of Treatment Upcoming Encounters Date Type Department Care Team (Late st Contact Info) Description 10/22/2025 9:00 AM EST Nutrition [facility] DIABETES/NUTRITION 230 [place], [place] [phone] Amena Fu, RD 230 [place] [address] 10/22/2025 11:15 AM EST Office Visit [facility] MEDICINE 230 [place] [address] Mariya Juan MD 230 [place] [address] 12/09/2025 10:30 AM EST Office Visit [facility] OPTOMETRY 267 [place] [address] Ernestina Gayle, OD 267 [place] [address] documented as of this encounter Visit Diagnoses Diagnosis Anxiety state Anxiety state, unspecified documented in this encounter Additional Health Concerns Assessment Noted Time PHQ-9 Depression Total Score: 14 025 11:30 AM EDT documented as of this encounter Care Teams Exerciser Horse Relationship Specialty Start Date End Date Mariya Juan MD [address] [place] [phone] PCP - General Internal Medicine 04/28/23 documented as of this encounter
--- OUTSIDE RECORDS SUMMARY | 2025-09-18 11:22 | XMS_ITS | Encounter Summary ---
Author Organization [employer] Address 75 [facility] 7t [place] [address] Care Team Providers Care Order Packer Name Role Phone Mariya Juan MD Primary Care Pro vider Reason for Visit * Reason Comments Med Refill Encounter Details Date Type Department Care Team ([facility] st Contact Info) Description 04/25/2025 Refill [facility] MEDICINE 230 [place], [place] [phone] Bertha Diaz MD 230 [place], [place] [phone] Constipation, unspecified constipation type Social History Tobacco [...] the past 12 months, has t he [employer], gas, oil or water company threatened to [...] Info) Description 10/22/2025 9:00 AM EST Nutrition [facility] DIABETES/NUTRITION [address] [place] [address] Amena Fu, RD 230 [place] [address] 10/22/2025 11:15 AM EST Office Visit [facility] MEDICINE [address] [place] [address] Mariya Juan MD 230 [place] [address] 12/09/2025 10:30 AM EST Office Visit [facility] OPTOMETRY [address] [place] [address] Ernestina Gayle, OD 267 [place] [address] documented as of this encounter Visit Diagnoses Diagnosis Constipation, unspecified constipation type documented in this encounter Additional Health Concerns Assessment Noted Time PHQ-9 Depression Total Score: 12 024 2:22 PM EDT documented as of this encounter Care Teams Order Packer Relationship Specialty Start Date End Date Mariya Juan MD [address] [place] [phone] PCP - General Internal Medicine 04/28/23 documented as of this encounter
--- OUTSIDE RECORDS SUMMARY | 2025-09-18 11:22 | XMS_ITS | Encounter Summary ---
Author Organization [employer] Address [address] [place] [address] 7 [place] [address] Care Team Providers Care Seam Hammerer Name Role Phone Mariya Juan MD Primary Care Pro vider Reason for Visit * Reason Onset Date Comments Nurse Triage 09/13/2025 Encounter Details Date Type Department Care Team ([facility] st Contact Info) Description 09/13/2025 Telephone [facility] MEDICINE 230 [place] [address] Mariya Juan MD 230 [place] [address] Nurse Triage Social History Tobacco Use Types Packs/Day Years [...] encounter Miscellaneous Notes * Telephone Encounter - Carol Casillas RN - 09/13/2025 2:26 PM EST Call returned to Patient regarding Anxiety/ Panic attacks. Patient reports Anxiety well controlled on hydroxyzine 25 mg q8h prn but was not refilled at last appt. Patient reports he called in for a refill today but is worried about not having meds for the weekend. Daughter was at the Hospital last night and this is an anxiety trigger for Patient. Patient just would like to assure med refill is done prior to the end of day since he called in late for refill. Patient denies SI, HI at this time. Patient verbalizes that he has crisis number and aware of when and how to seek help for BH. Patient informed hydroxyzine refill approved by a covering Provider and sent to [facility] in [place] at 1:49 pm today, 09/13/25. Patient verbalizes understanding and reports no furtherconcerns or needs at this time. Protocol Used: Anxiety and Panic Attack (Adult) Protocol-Based Disposition: Home Care Positive Triage Question: * Mild anxiety symptoms (e.g., anxiety symptoms are mild and intermittent; symptoms do not interfere with daily activities) * All higher-acuity triage questions were negative Care Advice Discussed: * Reassurance and Education - Anxiety * Reasons To Call Back - Anxiety or panic attacks continue - You feel like harming yourself - You become worse * [facility] - [facility] Suicide and Crisis Lifeline * Telephone Encounter - Javon Hendrickson - 09/13/2025 1:39 PM EST Symptom: Anxiety or Panic Attack Outcome: Schedule an urgent appointment (within 4 hours) or talk to a nurse or provider soon Reason: Anxiety keeps from normal daily activities (such as school or work) The caller accepted this outcome. Contact pt at [phone] documented in this encounter Plan of Treatment Upcoming Encounters Date Type Department Care Team (Late st Contact Info) Description 10/22/2025 9:00 AM EST Nutrition [facility] DIABETES/NUTRITION [address] [place] [address] [place] [address] 10/22/2025 11:15 AM EST Office Visit [facility] MEDICINE 230 [place] [address] Mariya Juan MD 230 [place] [address] 12/09/2025 10:30 AM EST Office Visit [facility] OPTOMETRY 267 [place] [address] Ernestina Gayle, KRISTINA [address] [place] [address] documented as of this encounter Visit Diagnoses Not on filedocumented in this encounter Additional Health Concerns Assessment Noted Time PHQ-9 Depression Total Score: 14 025 11:30 AM EDT documented as of this encounter Care Teams Seam Hammerer Relationship Specialty Start Date End Date Mariya Juan MD [address] [place] [phone] PCP - General Internal Medicine 04/28/23 documented as of this encounter
--- OUTSIDE RECORDS SUMMARY | 2025-09-18 11:22 | XMS_ITS | Encounter Summary ---
Author Organization [employer] Address [address] [place] [address] 7t [place] [address] Care Team Providers Care Dot Compliance Coordinator Name Role Phone Mariya Juan MD Primary Care Pro vider Encounter Details Date Type Department Care Team ([facility] st Contact Info) Description 08/16/2025 Results Follow-Up [facility] MEDICINE 230 [place] [address] Mariya Juan MD 230 [place] [address] ~PT, ~INR - ANTI COAG CLINIC, PROTHROMBIN [...] the past 12 months, has t he [employer], gas, oil or water [employer] threatened to shut off services in your [...] Info) Description 10/22/2025 9:00 AM EST Nutrition [facility] DIABETES/NUTRITION [address] [place] [address] 230 [place], [place] [phone] 10/22/2025 11:15 AM EST Office Visit [facility] MEDICINE [address] [place] [address] [phone] Mariya Juan MD 230 [place], [place] [phone] 12/09/2025 10:30 AM EST Office Visit [facility] OPTOMETRY 267 [place], [place] [phone] Ernestina Gayle, OD 267 [place], [place] [phone] documented as of this encounter Visit Diagnoses Not on filedocumented in this encounter Additional Health Concerns Assessment Noted Time PHQ-9 Depression Total Score: 14 025 11:30 AM EDT documented as of this encounter Care Teams Dot Compliance Coordinator Relationship Specialty Start Date End Date Mariya Juan MD [address] [place] [address] [phone] PCP - General Internal Medicine 04/28/23 documented as of this encounter
--- OUTSIDE RECORDS SUMMARY | 2025-09-18 11:22 | XMS_ITS | Encounter Summary ---
Author Organization [employer] Address [address] [place] [address] 7t [place] [address] Care Team Providers Care District Court Administrator Name Role Phone Mariya Juan MD Primary Care Pro vider Encounter Details Date Type Department Care Team ([facility] st Contact Info) Description 07/15/2025 Results Follow-Up [facility] MEDICINE [address] [place] [address] Mariya Juan MD [address] [place] [address] ~PT, ~INR - ANTI COAG CLINIC, PROTHROMBIN [...] [place] documented as of this encounter Miscellaneous Notes * Result Encounter Note - Mariya Cho MD - 07/15/2025 3:50 PM EDT Pt f at coumadin clinic -Pt range goal 2.5-3.5. documented in this encounter Plan of Treatment Upcoming Encounters Date Type Department Care Team (Late st Contact Info) Description 10/22/2025 9:00 AM EST Nutrition [facility] DIABETES/NUTRITION [address] [place] [address] Amena Fu, RD 230 [place] [address] 10/22/2025 11:15 AM EST Office Visit [facility] MEDICINE [address] [place] [address] Mariya Juan MD [address] [place] [address] 12/09/2025 10:30 AM EST Office Visit [facility] OPTOMETRY [address] [place] [address] TarkaMillieErnestina, OD [address] [place] [address] documented as of this encounter Visit Diagnoses Not on filedocumented in this encounter Additional Health Concerns Assessment Noted Time PHQ-9 Depression Total Score: 12 07/24/ 024 2:22 PM EDT documented as of this encounter Care Teams District Court Administrator Relationship Specialty Start Date End Date Mariya Juan MD [address] [place] [address] PCP - General Internal Medicine 04/28/23 documented as of this encounter
--- OUTSIDE RECORDS SUMMARY | 2025-09-18 11:22 | XMS_ITS | Clinical Summary ---
Author Organization [facility] Address [address] [place] [address] Phone Care Team Providers Care Route Process Administrator Name Role Phone Sharon Baum MD Primary Care Provider [phone] Allergies No known active allergies Medications Buprenorphine [...] to 49 Years) Completed 04/28/2023, 02/17/[address] [place] [address] ([id number]) [facility] ([id number]) [place] [phone] Care Teams Route Process Administrator Relationship Specialty Start Date End Date Sharon Baum MD [address] [place] [address] PCP - General Internal Medicine 10/20/22
--- OUTSIDE RECORDS SUMMARY | 2025-09-18 11:22 | XMS_ITS | Encounter Summary ---
Author Organization [employer] Address [address] [facility] 7t [place] [address] Care Team Providers Care Toolroom Machinist Name Role Phone Kay Dennis HOSPICE BEREAVEMENT COORDINATOR Primary Care Provider Mariya Lombardi MD Primary Care Pro vider Reason for Visit * Reason Onset Date Comments Durable Medical Equipment 02/25/2023 Encounter Details Date Type Department Care Team (Late st Contact Info) Description 02/25/2023 Telephone [facility] MEDICINE [address] [place] [address] Kay Dennis, HOSPICE BEREAVEMENT COORDINATOR Durable Medical Equipment Social History Tobacco Use [...] long ago. Please sent to script [email or web address] If any questions please contact Tammy at [phone] documented in this encounter Plan of Treatment Upcoming Encounters Date Type Department Care Team (Late st Contact Info) Description 10/22/2025 9:00 AM EST Nutrition [facility] DIABETES/NUTRITION [address] [place] [address] Amena Fu, RD [address] [place] [address] 10/22/2025 11:15 AM EST Office Visit [facility] MEDICINE [address] [place] [address] Mariya Juan MD 230 [place] [address] 12/09/2025 10:30 AM EST Office Visit [facility] OPTOMETRY [address] [place], [place] [phone] Ernestina Gayle, OD [address] [place] [address] documented as of this encounter Visit Diagnoses Not on filedocumented in this encounter Care Teams Toolroom Machinist Relationship Specialty Start Date End Date Kay Dennis FNP PCP - General Family Medicine 07/05/22 04/27/23 Mariya Juan MD [address] [place] [phone] PCP - General Internal Medicine 04/28/23 documented as of this encounter
== END 2025-09-18 10:32 | disposition home or self-care (01) ==
LOC: HO.ACS 09:53
PROVIDERS: PCP Student in an Organized Health Care Education/Training Program; Visit Provider Internal Medicine Medical Oncology
DX: Z79.01 Long term (current) use of anticoagulants (principal)

== ENCOUNTER → 2025-09-18 09:53 | Outpatient (BNVA) | payer OTHER, SELFPAY | PROVIDERS: PCP Student in an Organized Health Care Education/Training Program; Visit Provider Internal Medicine Medical Oncology | DX: Z95.2 Presence of prosthetic heart valve (principal); Z51.81 Encounter for therapeutic drug level monitoring; Z79.01 Long term (current) use of anticoagulants | CPT/HCPCS: 85610; 99211 ==

== ENCOUNTER 2025-09-25 10:05 | Outpatient (AMB) | payer OTHER, SELFPAY ==
[2025-09-25 10:23] LABS: Prothrombin Time Whole Bld POC 52.6 sec (11.1-13.5); ~PT, ~INR - Anti Coag Clinic 4.4 (0.9-1.1)
--- NOTE | 2025-09-25 10:30 | MHC.OFFVISCO ---
Intake Intake Visit Reasons: Anticoagulation Allergies hydrocodone (From VICODIN) Allergy (Unknown, Verified 09/25/25 10:18) GI UPSET Medication List - Last Reconciled 09/25/25 by Trinh Giron RN acetaminophen 325 mg PO QID PRN 7 days acetaminophen ER (Tylenol Arthritis Pain) 1,300 mg PO Q8H PRN albuterol sulfate 90 mcg/actuation (ProAir HFA) 2 puffs inhalation Q4-6H PRN atorvastatin 20 mg PO DAILY blood pressure test kit-large As directed buprenorphine-naloxone 8-2 mg (Suboxone) 1 film sublingual BID celecoxib (Celebrex) 200 mg PO DAILY PRN coenzyme Q10 (Co Q-10) PO fluticasone propionate 50 mcg/actuation sprays intranasal PRN hydroxyzine pamoate 25 mg PO TID inhalational spacing device (e-contratos [facility] spacer) As directed loratadine 10 mg PO DAILY melatonin 5 mg PO BEDTIME PRN omeprazole 20 mg PO DAILY ondansetron HCl 4 mg PO Q8H PRN polyethylene glycol 3350 (Miralax) 17 grams PO DAILY sodium chloride 0.65% (Deep Sea Nasal) sprays intranasal warfarin 7.5 mg See Protocol PO 2XW warfarin 10 mg See Protocol PO 5XW Nursing Note NO CP,SOB,DIET/MED CHANGES,FALLS OR SX OF BLEEDING. REDUCE DOSE TO 2.5MGM TODAY THEN RESUME USUAL DOSE AND FOLLOW-UP IN 1 WEEK. GREENS TODAY GOOD UNDERSTANDING OF DFOSING INSTR. Anti-Coag Initial Assessment Social Hx Patient Tobacco Use Status: Former Tobacco user Tobacco use type: Cigarette alcohol intake: never Alcohol intake frequency: does not drink Coding Level of Care Code Est Patient Level 1 Diagnoses Current use of anticoagulant therapy Z79.01 Assessment & Plan Assessment & Plan (1) Current use of anticoagulant therapy: Code(s): Z79.01 - vermin exterminator (current) 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
--- OUTSIDE RECORDS SUMMARY | 2025-09-25 18:59 | XMS_ITS | Encounter Summary ---
Author Organization [employer] Address [address] [facility] 7t [place] [address] Care Team Providers Care Allied Health Professional Name Role Phone Mariya Juan MD Primary Care Pro vider Reason for Visit * Reason Comments Med Refill Encounter Details Date Type Department Care Team (Late st Contact Info) Description 05/23/2023 Refill [facility] MEDICINE [address] [place], [place] [phone] Kay Dennis FNP Social History Tobacco Use [...] 10/22/2025 9:00 AM EST Nutrition [facility] DIABETES/NUTRITION [address] [place], [place] [phone] Amena Fu, SAMMI [address] [place] [address] 10/22/2025 11:15 AM EST Office Visit [facility] MEDICINE [address] [place] [address] Mariya Juan MD 230 [place] [address] 12/09/2025 10:30 AM EST Office Visit [facility] OPTOMETRY [address] [place], [place] [phone] Ernestina Gayle, OD [address] [place], [place] [phone] documented as of this encounter Visit Diagnoses Not on filedocumented in this encounter Additional Health Concerns Assessment Noted Time PHQ-9 Depression Total Score: 6 04/28/20 23 2:32 PM EDT documented as of this encounter Care Teams Allied Health Professional Relationship Specialty Start Date End Date Mariya Juan MD 230 [place], [place] [phone] PCP - General Internal Medicine 04/28/23 documented as of this encounter
--- OUTSIDE RECORDS SUMMARY | 2025-09-25 18:59 | XMS_ITS | Clinical Summary ---
Author Organization [facility] Address [address] [place] [address] Phone Care Team Providers Care Station Engineer Chief Name Role Phone Sharon Buam MD Primary Care Provider [phone] Allergies No known active allergies Medications Buprenorphine [...] to 49 Years) Completed 04/28/2023, 02/17/[address] [place] [address] ([id number]) [facility] ([id number]) [place] [phone] Care Teams Station Engineer Chief Relationship Specialty Start Date End Date Sharon Baum MD [address] [place] [phone] PCP - General Internal Medicine 10/20/22
--- OUTSIDE RECORDS SUMMARY | 2025-09-25 18:59 | XMS_ITS | Encounter Summary ---
Author Organization [employer] Address [address] [facility] 7t [place] [address] Care Team Providers Care Recycle Coordinator Name Role Phone Kay Dennis FERN GATHERER Primary Care Provider Mariya Lombardi MD Primary Care Pro vider Reason for Visit * Reason Onset Date Comments Durable Medical Equipment 02/25/2023 Encounter Details Date Type Department Care Team (Late st Contact Info) Description 02/25/2023 Telephone [facility] MEDICINE [address] [place] [address] Kay Dennis, FERN GATHERER Durable Medical Equipment Social History Tobacco Use [...] long ago. Please sent to script [email or web address] If any questions please contact Tammy at [phone] documented in this encounter Plan of Treatment Upcoming Encounters Date Type Department Care Team (Late st Contact Info) Description 10/22/2025 9:00 AM EST Nutrition [facility] DIABETES/NUTRITION [address] [place] [address] Amena Fu, RD [address] [place] [address] 10/22/2025 11:15 AM EST Office Visit [facility] MEDICINE [address] [place] [address] Mariya Juan MD 230 [place] [address] 12/09/2025 10:30 AM EST Office Visit [facility] OPTOMETRY [address] [place], [place] [phone] Ernestina Gayle, OD [address] [place] [address] documented as of this encounter Visit Diagnoses Not on filedocumented in this encounter Care Teams Recycle Coordinator Relationship Specialty Start Date End Date Kay Dennis FNP PCP - General Family Medicine 07/05/22 04/27/23 Mariya Juan MD [address] [place] [phone] PCP - General Internal Medicine 04/28/23 documented as of this encounter
--- OUTSIDE RECORDS SUMMARY | 2025-09-25 18:59 | XMS_ITS | Encounter Summary ---
Author Organization [employer] Address [address] [facility] 7t [place] [address] Care Team Providers Care Woodworking Machine Setter Name Role Phone Mariya Juan MD Primary Care Pro vider Reason for Visit * Reason Comments Med Refill Encounter Details Date Type Department Care Team ([facility] st Contact Info) Description 04/25/2025 Refill [facility] MEDICINE [address] [place], [place] [phone] Bertha Diaz MD 230 [place], [place] [phone] Constipation, unspecified constipation type Social History Tobacco [...] the past 12 months, has t he [employer] gas, oil or water company threatened to [...] Description 10/22/2025 9:00 AM EST Nutrition [facility] DIABETES/NUTRITION [address] [place] [address] Amena Fu, RD 230 [place] [address] 10/22/2025 11:15 AM EST Office Visit [facility] MEDICINE [address] [place] [phone] Mariya Juan MD [address] [place] [address] 12/09/2025 10:30 AM EST Office Visit [facility] OPTOMETRY [address] [place] [address] Ernestina Gayle, OD [address] [place] [address] documented as of this encounter Visit Diagnoses Diagnosis Constipation, unspecified constipation type documented in this encounter Additional Health Concerns Assessment Noted Time PHQ-9 Depression Total Score: 12 024 2:22 PM EDT documented as of this encounter Care Teams Woodworking Machine Setter Relationship Specialty Start Date End Date Mariya Juan MD [address] [place] [address] PCP - General Internal Medicine 04/28/23 documented as of this encounter
--- OUTSIDE RECORDS SUMMARY | 2025-09-25 18:59 | XMS_ITS | Encounter Summary ---
Author Organization [employer] Address [address] 7t [place] [address] Care Team Providers Care Knitting Machine Tender Name Role Phone Mariya Juan MD Primary Care Pro vider Encounter Details Date Type Department Care Team (Late st Contact Info) Description 09/25/2025 Orders Only GENERIC EXTERNAL DATA DEPARTMENT Provider, [...] Info) Description 10/22/2025 9:00 AM EST Nutrition [facility] DIABETES/NUTRITION [address] [place] [address] Amena Fu, SAMMI [address] [place] [address] 10/22/2025 11:15 AM EST Office Visit [facility] MEDICINE [address] [place] [address] Mariya Juan MD 230 [place] [address] 12/09/2025 10:30 AM EST Office Visit [facility] OPTOMETRY [address] [place] [address] Ernestina Gayle, OD [address] [place] [address] documented as of this encounter Procedures Procedure Name Priority Date/Time Associated Diagnosis Comments PROTHROMBIN TIME WHOLE BLD POC Routine 09/25/2025 10:21 AM EST ~PT, ~INR - ANTI COAG CLINIC Routine 09/25/2025 10:21 AM EST documented in this encounter Results * (ABNORMAL) PROTHROMBIN TIME WHOLE BLD POC (09/25/2025 10:21 AM EST) Protime 52.6(H) 11.1 - 13.5 sec [facility] 09/25/2025 10:2 1 AM EST 09/25/2025 10:23 AM EST Generic External Data Provider LAB BLOOD ORDERAB LES Final Result Performing Organization Address [facility] de Phone Number [facility] [address] [place] [phone] * (ABNORMAL) ~PT, ~INR - ANTI COAG CLINIC (09/25/2025 10:21 AM EST) Prothrombin Time INR 4.4(H) 0.9 - 1.1 [facility] Comment:METER #: [id number] TERNATIONAL NORMALIZED RATIO (INR) REFERENCE RANGES Reference RangeFor patients not on anticoagulant therapy: 0.9 - 1.1INR ranges for oral anticoagulanttherapy:For prevention and treatment of venous thrombosis and pulmonary embolism: 2.0 - 3.0For acute myocardial infarction with aspirin therapy: 2.0 - 3.0For acute myocardial infarction without aspirin therapy: 3.0 - 4.0For patients with mechanical prosthetic heart valves: 2.5 - 3.5 09/25/2025 10:2 1 AM EST 09/25/2025 10:23 AM EST us Generic External Data Provider LAB BLOOD ORDERAB LES Final Result Performing Organization Address [facility] de Phone Number [facility] [address] [place] [phone] documented in this encounter Visit Diagnoses Not on filedocumented in this encounter Additional Health Concerns Assessment Noted Time PHQ-9 Depression Total Score: 14 025 11:30 AM EDT documented as of this encounter Care Teams Knitting Machine Tender Relationship Specialty Start Date End Date Mariya Juan MD [address] [place] [phone] PCP - General Internal Medicine 04/28/23 documented as of this encounter
--- OUTSIDE RECORDS SUMMARY | 2025-09-25 19:00 | XMS_ITS | Encounter Summary ---
Author Organization [employer] Address [address] [facility] 7t [place] [address] Care Team Providers Care Hand Sizer Name Role Phone Kay Dennis Primary Care Provider Mariya Lombardi MD Primary Care Pro vider Encounter Details Date Type Department Care Team (Late Contact Info) Description 12/16/2022 Orders Only [facility] MEDICINE [address] [place], [place] [phone] Aida Villegas LPN Social History Tobacco Use [...] 10/22/2025 9:00 AM EST Nutrition [facility] DIABETES/NUTRITION [address] [place], [place] [phone] Amena Fu [address] [place], [place] [phone] 10/22/2025 11:15 AM EST Office Visit [facility] MEDICINE [address] [place] [address] Mariya Juan MD 230 [place] [address] 12/09/2025 10:30 AM EST Office Visit [facility] OPTOMETRY [address] [place] [address] Shivarichard Ernestina, OD [address] [place] [address] documented as of this encounter Procedures Procedure Name Priority Date/Time Associated Diagnosis Comments PROTHROMBIN TIME WHOLE BLD POC Routine 12/16/2022 2:35 PM EST ~PT, ~INR - ANTI COAG CLINIC Routine 12/16/2022 2:35 PM EST documented in this encounter Results * (ABNORMAL) PROTHROMBIN TIME WHOLE BLD POC (12/16/2022 2:35 PM EST) Protime 45.7(H) 11.1 - 13.5 sec [facility] 12/16/2022 2:35 PM EST 12/16/2022 2:36 PM EST [facility] External Provider LAB BLO OD ORDERABLES Final Result [facility] [address] [place] [phone] * (ABNORMAL) ~PT, ~INR - ANTI COAG CLINIC (12/16/2022 2:35 PM EST) Prothrombin Time INR 3.8(H) 0.9 - 1.1 [facility] Comment:METER #: [id number] TERNATIONAL NORMALIZED RATIO (INR) REFERENCE RANGES Reference [...] 2:35 PM EST 12/16/2022 2:36 PM EST [facility] External Provider LAB BLO OD ORDERABLES Final Result [facility] [address] [place] [phone] [phone] documented in this encounter Visit Diagnoses Not on filedocumented in this encounter Care Teams Hand Sizer Relationship Specialty Start Date End Date Kay Dennis FNP PCP - General Family Medicine 07/05/22 04/27/23 Mariya Juan MD [address] [place] [address] PCP - General Internal Medicine 04/28/23 documented as of this encounter
--- OUTSIDE RECORDS SUMMARY | 2025-09-25 19:00 | XMS_ITS | Clinical Summary ---
Author Organization [employer] Address [address] [facility] 7t [place] [address] Care Team Providers Care Guide Rail Cleaner Name Role Phone Mariya Juan MD Primary [...] 04/28/2023 Overview (04/28/2023): Was seen at [facility] on 08/17/22 with noted nausea, diaphoresis in exam room, discomfort, profound fatigue, referred to [facility] now. Went to [facility] on 08/18/22 and was admitted for infection and started antibiotics. Blood cultures on 08/18/22 and 08/20/22 grew MSSA. 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 Plan was to transfer [facility]. Transferred to [facility] on 08/21/22 for further management of infective [...] bleed improving Has PT in home through [facility]. Assessment & Plan (04/28/2023 10:03 PM EDT): Pt completing OT soon Will refer pt to OT [facility] again Continue hand exercises Followup 3 month or sooner PRN with new PCP Intraparenchymal hemorrhage of brain (CMS/HCC) 0 04/28/2023 Overview (04/28/2023): Was seen at [facility] on 08/17/22 with noted nausea, diaphoresis in exam room, discomfort, profound fatigue, referred to [facility] now. Went to [facility] on 08/18/22 and was admitted for infection and started antibiotics. Blood cultures on 08/18/22 and 08/20/22 grew MSSA. 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 Plan was to transfer [facility]. Transferred to [facility] on 08/21/22 for further management of infective [...] 11/03/2022 Overview (04/28/2023): Was seen at [facility] on 08/17/22 with noted nausea, diaphoresis in exam room, discomfort, profound fatigue, referred to [facility] now. Went to [facility] on 08/18/22 and was admitted for infection and started antibiotics. Blood cultures on 08/18/22 and 08/20/22 grew MSSA. 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 Plan was to transfer [facility]. Transferred to [facility] on 08/21/22 for further management of infective [...] Coumadin clinic, PCP and specialists Substance abuse ([facility]) 11/06/2014 Overview (04/28/2023): Last used Percocet [...] organization. Date Type Department Care Team Description 09/25/2025 Orders Only GENERIC EXTERNAL DATA DEPARTMENT Provider, Generic External Data 09/18/2025 Telephone [facility] [address] [place] [phone] Mariya Juan MD CRITICAL LAB 09/18/2025 Orders Only GENERIC EXTERNAL DATA DEPARTMENT Provider, Generic External Data 09/13/2025 Telephone [facility] [address] [place] [address] Mariya Juan MD Nurse Triage 09/13/2025 Refill [facility] [address] [place], [place] [phone] Mariya Juan MD Anxiety state 08/16/2025 Results Follow-Up [address] [address] Mariya Juan MD ~PT, ~INR - ANTI COAG CLINIC, PROTHROMBIN TIME WHOLE BLD POC 08/16/2025 Orders Only GENERIC EXTERNAL DATA DEPARTMENT Provider, Generic External Data 08/12/2025 Travel 08/11/2025 Orders Only [facility] [place] [address] Mariya Juan MD 08/09/2025 10:45 AM EDT Office Visit [facility] [place] [address] Mariya Juan MD Class 1 obesity due [...] Dietary counseling; Exercise counseling; Right hemiparesis (CMS/HCC) ([facility]); Substance abuse (CMS/HCC) ([facility]); History of prosthetic heart valve; Health care maintenance; Mild major depression (CMS/HCC); Anxiety; Right arm weakness; Intraparenchymal hemorrhage of brain (CMS/HCC) ([facility]); Transaminitis 08/09/2025 Patient Outreach [facility] [place] [address] Mariya Juan MD Care Coordination (CHW outreach for SDOH PT-1 and food needs-referral completed /) 08/09/2025 Telephone [facility] [place] [address] Mariya Juan MD Pre OP note 08/09/2025 Travel 08/08/2025 Telephone [facility] [place] [address] Mariya Juan MD chart prep 07/26/2025 Results Follow-Up [facility] [place] [address] Mariya Juan MD ~PT, ~INR - ANTI COAG CLINIC, PROTHROMBIN TIME WHOLE BLD POC 07/26/2025 Orders Only GENERIC EXTERNAL DATA DEPARTMENT Provider, Generic External Data 07/15/2025 Results Follow-Up [facility] [place] [address] Mariya Juan MD ~PT, ~INR - ANTI COAG CLINIC, PROTHROMBIN TIME WHOLE BLD POC 07/15/2025 Orders Only GENERIC EXTERNAL DATA DEPARTMENT Provider, Generic External Data 07/12/2025 Results Follow-Up [facility] [address] [place] [address] Mariya Juan MD ~PT, ~INR - ANTI COAG CLINIC, PROTHROMBIN TIME WHOLE BLD POC 07/12/2025 Orders Only [facility] [address] [place] [address] Mariya Juan MD Hx of prosthetic mitral valve 07/12/2025 Telephone [facility] [address] [place] [address] Mariya Juan MD Critical INR 07/12/2025 Orders Only GENERIC EXTERNAL DATA DEPARTMENT Provider, Generic External Data 07/04/2025 Results Follow-Up [facility] [address] [place] [address] Mariya Juan MD ~PT, ~INR - ANTI COAG CLINIC, PROTHROMBIN TIME WHOLE BLD POC 07/03/2025 Orders Only GENERIC EXTERNAL DATA DEPARTMENT Provider, Generic External Data from Last 3 Months Immunizations Immunization Administration Dates Next Due DTaP 07/18/1989, 7,12/20/1986,11/19 Hep B, Adolescent or Pediatric 12/10/1998,1997,1998 Hib ([facility]) 10/20/1987 Influenza injectable quadriv alent [...] Info) Description 10/22/2025 9:00 AM EST Nutrition [facility] DIABETES/NUTRITION [address] [place] [address] [place] [address] 10/22/2025 11:15 AM EST Office Visit [facility] [address] [place] [address] Mariya Juan MD [address] [place] [address] 12/09/2025 10:30 AM EST Office Visit [facility] OPTOMET[facility] [address] [place] [address] Ernestina Gayle, OD [address] [place] [address] Health Maintenance Due Date Last Done Comments [...] COAG CLINIC Routine 09/25/2025 10:21 AM EST PROTHROMBIN TIME WHOLE BLD POC Routine 09/18/2025 [...] WHOLE BLD POC (09/25/2025 10:21 AM EST) Only the most recent of7 resultswithin the time period is included. Protime 52.6(H) 11.1 - 13.5 sec [facility] 09/25/2025 10:2 1 AM EST 09/25/2025 10:23 AM EST us Generic External Data Provider LAB BLOOD ORDERAB LES Final Result Performing Organization Address City/State/[facility] Co de Phone Number [facility] [address] [place] [phone] * (ABNORMAL) ~PT, ~INR - ANTI COAG CLINIC (09/25/2025 10:21 AM EST) Only the most recent of7 resultswithin the time period is included. Prothrombin Time INR 4.4(H) 0.9 - 1.1 [facility] Comment:METER #: [id number] TERNATIONAL NORMALIZED RATIO (INR) REFERENCE RANGES Reference [...] Result Performing Organization Address [facility] Co de Phone Number [facility] [address] [place] [phone] * ECG 12 lead (08/09/2025 12:28 PM EDT) Narrative Mariya Juan MD - 08/09/2025 12:28 PM EDT EKG today HR 71,NSR, Qtc 424,only TWI in lead III ,intra-atrial /slight intraventricular conduction delay Mariya Cho MD ECG ORDERABLES F inal Result * Hepatitis C Antibody with Reflex to HCV, RNA, Quantitative, Real-Time PCR (09/14/2024 4:32 PM EST) Hepatitis C Antibody Nonreactive Nonreactive [facility] Comment:Antibodies to HCV no t detected; does not exclude early acuteHCV infection. Blood Venous blood specimen / Unknown 09/14/2024 4:32 PM EST 09/14/2024 6:05 PM EST Mariya Cho MD LAB BLOOD ORDERAB LES Final Result Performing Organization Address [facility] Co de Phone Number [facility] [address] [place] [phone] * HIV-1/2 Antigen and Antibodies, Fourth Generation, with Reflexes (09/14/2024 4:32 PM EST) HIV AB/AG Nonreactive Nonreactive [facility] Comment:HIV-1 p24 Ag and/or HIV-1/HIV-2 Ab not detected.A test result that is nonreactive does not exclude thepossibility of exposure to or infection with HIV-1 and/orHIV-2. Nonreactive results in this assay for individualswith prior exposure to HIV-1 and/or HIV-2 may be due toantigen and antibody levels that are below the limit ofdetection of this assay.The [employer] HIV Ag/Ab Combo assay result andsupplemental assay results should be interpreted inconjunction with the patient's clinical presentation,history and other laboratory results. If the results areinconsistent with clinical evidence, additional testing issuggested to confirm the result. Blood Venous blood specimen / Unknown 09/14/2024 4:32 PM EST 09/14/2024 6:05 PM EST us Mariya Cho MD LAB BLOOD ORDERAB LES Final Result [facility] [address] [place] [phone] * (ABNORMAL) Lipid Panel, Standard (09/14/2024 4:23 PM EST) Triglycerides 194(H) <150 mg/dL [facility] Comment:Desirable Triglyceri de: less than 150 mg/dLBorderline High Triglyceride 150-199 mg/dLHigh Triglyceride: 200-499 mg/dLVery High Triglyceride: greater than or equal to 5OO mg/dL Cholesterol 131 <200 mg/dL [facility] Comment:Desirable Cholestero l: less than 200 mg/dLBorderline High Cholesterol: 200-239 mg/dLHigh Cholesterol: greater than 239 mg/dL LDL Cholesterol Calculated 62 <100 mg/dL [facility] Comment:Desirable LDL: less than 100 mg/dLNear Optimal/Above Optimal LDL: 110- 129 mg/dLBorderline High LDL: 130-159 mg/dLHigh LDL: 160-189 mg/dLVery High LDL: greater than or equal to 190 mg/dL HDL Cholesterol 31(L) >40 mg/dL [facility] Comment:Desirable HDL: great er than 40 mg/dL Note: This HDL assay may give artificially low results in patients with liver disease. Blood Venous blood specimen / Unknown 09/14/2024 4:23 PM EST 09/14/2024 6:05 PM EST Mariya Cho MD LAB BLOOD ORDERAB LES Final Result [facility] [address] [place] [phone] from Last 3 Months or Most Recently Relevant to Health Maintenance Insurance [facility]ARE < 65 DENIS ERNANDEZ [id number] Care Teams Guide Rail Cleaner Relationship Specialty Start Date End Date Mariya Juan MD [address] [place] [phone] PCP - General Internal Medicine 04/28/23
--- OUTSIDE RECORDS SUMMARY | 2025-09-25 19:00 | XMS_ITS | Encounter Summary ---
Author Organization [employer] Address [address] [place] [address] 7t [place] [address] Care Team Providers Care Artisan Plasterer Name Role Phone Mariya Juan MD Primary Care Pro vider Encounter Details Date Type Department Care Team ([facility] st Contact Info) Description 08/16/2025 Results Follow-Up [facility] [address] [place] [address] Mariya Juan MD [address] [place] [address] ~PT, ~INR - ANTI COAG CLINIC, PROTHROMBIN [...] the past 12 months, has t he [employer], gas, oil or water [employer] threatened to shut off services in your [...] 10/22/2025 9:00 AM EST Nutrition [facility] DIABETES/NUTRITION [address] [place] [address] [place], [place] [phone] 10/22/2025 11:15 AM EST Office Visit [facility] MED[facility] [address] [place] [address] [phone] Mariya Juan MD [address] [place], [place] [phone] 12/09/2025 10:30 AM EST Office Visit [facility] OPTOMETRY [address] [place], [place] [phone] Ernestina Gayle, OD [address] [place], [place] [phone] documented as of this encounter Visit Diagnoses Not on filedocumented in this encounter Additional Health Concerns Assessment Noted Time PHQ-9 Depression Total Score: 14 025 11:30 AM EDT documented as of this encounter Care Teams Artisan Plasterer Relationship Specialty Start Date End Date Mariya Juan MD [address] [place] [address] [phone] PCP - General Internal Medicine 04/28/23 documented as of this encounter
--- OUTSIDE RECORDS SUMMARY | 2025-09-25 19:00 | XMS_ITS | Data Portability ---
Author Organization [place] [facility], Allergy Address [address] [place] [phone] Care Team Providers Care Lint Cleaner Name Role Phone NAME, KEIRA Primary Care [...] worsen, may consider tonsillectomy in the future. [email or web address] Not available 04/11/2024 15:22:38 Plan of Treatment Reminders Order Date Submit Date Provider Last Modified By Organization Details Last Modified Time Details Appointments None recorded. Lab None recorded. Referral None recorded. Procedures None recorded. Surgeries None recorded. Imaging None recorded. Medication Orders Flonase Allergy Relief 50 mcg/actua tion nasal spray,darrin pension 024 024 [facility][id number], [address] [place], [place], [id number], 15:20:32 Patient TargetsNo targets recorded. Patient InstructionsNo instructions recorded. Reason for Referral None Reported. 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 Procedures Surgical History Date Name Laterality Status Provider Name and Address Organization Details Recorded Time Heart Surgery completed Daphnie Welsh [place] - [facility] [place] 04/11/2024 15:01:33 Imaging Results None recorded. Procedure [...] Avai lable albuterol active Not Available Not Agny ilable Not Available Miralax active Not Available Not Avail able Not Available Vitals Date Recorded Body height Body mass index (BMI) Body weight Provider Name and Address Organization Details Last Updated DateTime 04/11/2024 190.5 cm 30 kg/m2 310581.17 g Daphnie Welsh [place] [facility] [place] 04/11/2024 14:58:50 Date Recorded Body height Body mass index (BMI) Body weight Provider Name and Address Organization Details Last Updated DateTime 08/30/2024 190.5 cm 30 kg/m2 070715.17 g Nelli Fishman [place] [facility] [place] 08/30/2024 10:37:44 Social History None recorded. Functional Status None recorded. Mental Status None recorded. Family History Nothing Reported. Medical History No medical history recorded. Past Encounters Encounter ID Performer Location Encounter Start Date Encounter Closed Date Diagnosis/Indication Diagnosis SNOMED-CT Code Diagnosis ICD10 Code Diagnosis IMO Codes Diagnosis Note [id number] CHANI KIM PA-C [facility] [address] [place] [address] 04/11/2024 14:35:25 04/11/2024 15:13:40 Amygdalolith 2338535 J35.8 Allergic rhinitis 440033 04 J30.89 [id number] EDDIE MONTES MD [facility] of [address] [phone] 08/30/2024 10:28:36 08/30/2024 10:58:17 Amygdalolith 0298433 J35.8 Discourage d surgery. Recommend observatio n. [...] Roberts Member ID Guarantor Name 11/15/2024 1 [facility] - DOS ON OR AFTER 2023 - [facility] (MEDICARE REPLACEMENT/AD VANTAGE - HMO) Ludin Mendes [id number] Ludin Mendes 08/30/2024 1 [facility] - DOS ON OR AFTER 2023 - MEDICARE ADVANTAGE [place] (MEDICARE REPLACEMENT/AD VANTAGE - PPO) Ludin Mendes [id number] Ludin Mendes Notes Date Note Type Note [...] did not continue it. CHANI KIM PA-C [address] [place] [address], [phone], [facility] - [facility] 04/11/2024 15:25:28 08/30/2024 text/html ROS as noted in the HPI 38-year-old male presents for evaluation of tonsil stones. Bleeding has resolved. He has not been using flonase but finds mouth rinses helpful. He is less bothered than before. EDDIE MONTES MD [address] [place] [address], [phone], [facility] - [facility] 08/30/2024 11:00:13
--- OUTSIDE RECORDS SUMMARY | 2025-09-25 19:00 | XMS_ITS | Encounter Summary ---
Author Organization [employer] Address [address] [facility] 7 [place] [address] Care Team Providers Care Emr Implementation Specialist Name Role Phone Mariya Juan MD Primary Care Pro vider Reason for Visit * Reason Onset Date Comments Med Refill 04/20/2024 Encounter Details Date Type Department Care Team ([facility] st Contact Info) Description 04/20/2024 Telephone [facility] MEDICINE [address] [place], [place] [phone] Mariya Juan MD [address] [place] [address] Med Refill Social History Tobacco Use Types [...] PM EDT Received call from Freida from [facility] coumadin clinic. Pt back today [...] 04/20/2024 4:01 PM EDT TC placed to [facility] Anticoagulation to inquire when pt last got INR drawn. According to the dental office receptionist the pt was to come [...] solution prefilled syringe To be sent to: [facility][id number] - [facility] [address] [facility] documented in this encounter Plan of Treatment Upcoming Encounters Date Type Department Care Team (Late st Contact Info) Description 10/22/2025 9:00 AM EST Nutrition [facility] DIABETES/NUTRITION [address] [place] [phone] [place] [phone] 10/22/2025 11:15 AM EST Office Visit [facility] MEDICINE [address] [place] [phone] Mariya Juan MD [address] [place] [address] 12/09/2025 10:30 AM EST Office Visit [facility] OPTOMETRY [address] [place], [place] [phone] Ernestina Gayle, OD [address] [place], [place] [phone] documented as of this encounter Visit Diagnoses Not on filedocumented in this encounter Additional Health Concerns Assessment Noted Time PHQ-9 Depression Total Score: 6 04/28/20 23 2:32 PM EDT documented as of this encounter Care Teams Emr Implementation Specialist Relationship Specialty Start Date End Date Mariya Juan MD [address] [place] [address] [phone] PCP - General Internal Medicine 04/28/23 documented as of this encounter
--- OUTSIDE RECORDS SUMMARY | 2025-09-25 19:00 | XMS_ITS | Encounter Summary ---
Author Organization [employer] Address [address] [place] [address] 7 [place] [address] Care Team Providers Care Pharmacy Student Name Role Phone Mariya Juan MD Primary Care Pro vider Reason for Visit * Reason Onset Date Comments Med Refill 01/08/2025 Encounter Details Date Type Department Care Team ([facility] st Contact Info) Description 01/08/2025 Telephone [facility] MEDICINE [address] [place] [address] Mariya Juan MD [address] [place] [address] Med Refill Social History Tobacco Use Types [...] solution prefilled syringe To be sent to: [facility][id number] [facility] [address] [facility] documented in this encounter Plan of Treatment Upcoming Encounters Date Type Department Care Team ([facility] st Contact Info) Description 10/22/2025 9:00 AM EST Nutrition [facility] DIABETES/NUTRITION [address] [place], [place] [phone] Amena Fu [address] [place], [place] [phone] 10/22/2025 11:15 AM EST Office Visit [facility] MEDICINE [address] [place] [address] Mariya Juan MD [address] [place], [place] [phone] 12/09/2025 10:30 AM EST Office Visit [facility] OPTOMETRY [address] [place] [address] Ernestina Gayle, OD [address] [place], [place] [phone] documented as of this encounter Visit Diagnoses Not on filedocumented in this encounter Additional Health Concerns Assessment Noted Time PHQ-9 Depression Total Score: 12 024 2:22 PM EDT documented as of this encounter Care Teams Pharmacy Student Relationship Specialty Start Date End Date Mariya Juan MD [address] [place], [place] [phone] PCP - General Internal Medicine 04/28/23 documented as of this encounter
--- OUTSIDE RECORDS SUMMARY | 2025-09-25 19:00 | XMS_ITS | Encounter Summary ---
Author Organization [employer] Address [address] [facility] 7t [place] [address] Care Team Providers Care Fur Glosser Name Role Phone Mariya Juan MD Primary Care Pro vider Encounter Details Date Type Department Care Team ([facility] st Contact Info) Description 07/26/2025 Results Follow-Up [facility] MEDICINE [address] [place] [address] Mariya Juan MD [address] [place] [address] ~PT, ~INR - ANTI COAG CLINIC, PROTHROMBIN [...] the past 12 months, has t he [employer], gas, oil or water [facility] threatened to shut off services in your [...] Info) Description 10/22/2025 9:00 AM EST Nutrition [facility] DIABETES/NUTRITION [address] [place] [phone] [place], [place] [phone] 10/22/2025 11:15 AM EST Office Visit [facility] MEDICINE [address] [place] [phone] Mariya Juan MD [address] [place] [address] 12/09/2025 10:30 AM EST Office Visit [facility]ET[facility] [address] [place], [place] [phone] Ernestina Gayle, OD [address] [place] [address] documented as of this encounter Visit Diagnoses Not on filedocumented in this encounter Additional Health Concerns Assessment Noted Time PHQ-9 Depression Total Score: 12 024 2:22 PM EDT documented as of this encounter Care Teams Fur Glosser Relationship Specialty Start Date End Date Mariya Juan MD [address] [place] [address] [phone] PCP - General Internal Medicine 04/28/23 documented as of this encounter
== END 2025-09-25 10:32 | disposition home or self-care (01) ==
LOC: HO.ACS 10:05
PROVIDERS: PCP Student in an Organized Health Care Education/Training Program; Visit Provider Internal Medicine Medical Oncology
DX: Z79.01 Long term (current) use of anticoagulants (principal)

== ENCOUNTER → 2025-09-25 10:05 | Outpatient (BNVA) | payer OTHER, SELFPAY | PROVIDERS: PCP Student in an Organized Health Care Education/Training Program; Visit Provider Internal Medicine Medical Oncology | DX: Z95.2 Presence of prosthetic heart valve (principal); Z51.81 Encounter for therapeutic drug level monitoring; Z79.01 Long term (current) use of anticoagulants | CPT/HCPCS: 85610; 99211 ==

== ENCOUNTER 2025-10-07 10:23 | Outpatient (AMB) | payer OTHER, SELFPAY ==
--- NOTE | 2025-10-07 10:32 | MHC.OFFVISCO ---
Intake Intake Visit Reasons: Anticoagulation Allergies hydrocodone (From VICODIN) Allergy (Unknown, Verified 10/07/25 10:29) GI UPSET Medication List - Last Reconciled 10/07/25 by Lindsay Couch RN acetaminophen 325 mg PO QID PRN 7 days acetaminophen ER (Tylenol Arthritis Pain) 1,300 mg PO Q8H PRN albuterol sulfate 90 mcg/actuation (ProAir HFA) 2 puffs inhalation Q4-6H PRN atorvastatin 20 mg PO DAILY blood pressure test kit-large As directed buprenorphine-naloxone 8-2 mg (Suboxone) 1 film sublingual BID celecoxib (Celebrex) 200 mg PO DAILY PRN coenzyme Q10 (Co Q-10) PO fluticasone propionate 50 mcg/actuation sprays intranasal PRN hydroxyzine pamoate 25 mg PO TID inhalational spacing device ([facility] spacer) As directed loratadine 10 mg PO DAILY melatonin 5 mg PO BEDTIME PRN omeprazole 20 mg PO DAILY ondansetron HCl 4 mg PO Q8H PRN polyethylene glycol 3350 (Miralax) 17 grams PO DAILY sodium chloride 0.65% (Deep Sea Nasal) sprays intranasal warfarin 7.5 mg See Protocol PO 2XW warfarin 10 mg See Protocol PO 5XW Nursing Note INR 2.4-?? out of therapeutic range 2.5-3.5 Medications and supplements reviewed Patient status: no c.o offered Medications or supplements: no changes Diet: same Denies any signs and symptoms of bleeding or clotting or unusual bruising Bleeding, bruising, clotting discussed Nutritional guidance given: no greens for 2 days, eat reds today and tomm to raise Dose: due to prev four inr's elev, cont reg dosing 7.5mg x 4, 5mg x 3 F/U INR Date : 1 week? Patient verbalizing understanding of instructions given. Anti-Coag Initial Assessment Social Hx Patient Tobacco Use Status: Former Tobacco user Tobacco use type: Cigarette alcohol intake: never Alcohol intake frequency: does not drink Coding Level of Care Code Est Patient Level 1 Diagnoses Current use of anticoagulant therapy Z79.01 Assessment & Plan Assessment & Plan (1) Current use of anticoagulant therapy: Code(s): Z79.01 - FPC (current) 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
[2025-10-07 10:34] LABS: Prothrombin Time Whole Bld POC 28.4 sec (11.1-13.5); ~PT, ~INR - Anti Coag Clinic 2.4 (0.9-1.1)
--- OUTSIDE RECORDS SUMMARY | 2025-10-07 13:04 | XMS_ITS | Encounter Summary ---
Author Organization [employer] Address [address] [place] [address] 7t [place] [address] Care Team Providers Care Stave Mill Hand Name Role Phone Mariya Juan MD Primary Care Pro vider Encounter Details Date Type Department Care Team ([facility] st Contact Info) Description 08/16/2025 Results Follow-Up [facility] [address] [place] [address] Mariya Juan MD [address] [place] [address] ~PT, ~INR - ANTI COAG CLINIC, PROTHROMBIN [...] the past 12 months, has t he [employer], gas, oil or water [employer] threatened to shut off services in your [...] AM EST Nutrition [facility] DIABETES/NUTRITION [address] [place] [phone] [place], [place] [phone] 10/22/2025 11:15 AM EST Office Visit [facility] [address] [place] [address] [phone] Mariya Juan MD 230 [place], [place] [phone] 12/09/2025 10:30 AM EST Office Visit [facility] OPTOMETRY [address] [place], [place] [phone] Ernestina Gayle, OD [address] [place], [place] [phone] documented as of this encounter Visit Diagnoses Not on filedocumented in this encounter Additional Health Concerns Assessment Noted Time PHQ-9 Depression Total Score: 14 025 11:30 AM EDT documented as of this encounter Care Teams Stave Mill Hand Relationship Specialty Start Date End Date Mariya Juan MD [address] [place] [address] [phone] PCP - General Internal Medicine 04/28/23 documented as of this encounter
--- OUTSIDE RECORDS SUMMARY | 2025-10-07 13:04 | XMS_ITS | Encounter Summary ---
Author Organization [employer] Address 75 [facility] 7t [place] [address] Care Team Providers Care Clinical Data Specialist Name Role Phone Mariya Juan MD Primary Care Pro vider Reason for Visit * Reason Comments Med Refill Encounter Details Date Type Department Care Team ([facility] st Contact Info) Description 04/25/2025 Refill [facility] [address] [place], [place] [phone] Bertha Diaz MD 230 [place], [place] [phone] Constipation, unspecified constipation type Social History Tobacco [...] the past 12 months, has t he [employer], gas, oil or water company threatened to [...] Description 10/22/2025 9:00 AM EST Nutrition [facility] [address] [place] [address] [address] Fu, RD 230 [place] [address] 10/22/2025 11:15 AM EST Office Visit [facility] [address] [place] [phone] Mariya Juan MD 230 [place] [address] 12/09/2025 10:30 AM EST Office Visit [facility] OPTOM[facility] [address] [place] [phone] Ernestina Gayle, OD [address] [place] [address] documented as of this encounter Visit Diagnoses Diagnosis Constipation, unspecified constipation type documented in this encounter Additional Health Concerns Assessment Noted Time PHQ-9 Depression Total Score: 12 024 2:22 PM EDT documented as of this encounter Care Teams Clinical Data Specialist Relationship Specialty Start Date End Date Mariya Juan MD [address] [place] [phone] PCP - General Internal Medicine 04/28/23 documented as of this encounter
--- OUTSIDE RECORDS SUMMARY | 2025-10-07 13:04 | XMS_ITS | Encounter Summary ---
Author Organization [employer] Address [address] [facility] [address] 7t [place] [address] Care Team Providers Care Turf Farm Worker Name Role Phone Mariya Juan MD Primary Care Pro vider Encounter Details Date Type Department Care Team (Late st Contact Info) Description 10/07/2025 Orders Only GENERIC EXTERNAL DATA DEPARTMENT Provider, [...] Upcoming Encounters Date Type Department Care Team ([facility] st Contact Info) Description 10/22/2025 9:00 AM EST Nutrition [facility] DIABETES/NUTRITION [address] [place] [phone] Amena Fu, SAMMI [address] [place] [address] 10/22/2025 11:15 AM EST Office Visit [facility] MEDICINE [address] [place] [address] Mariya Juan MD 230 [place] [address] 12/09/2025 10:30 AM EST Office Visit [facility] OPTOMETRY [address] [place] [address] Ernestina Gayle, OD [address] [place] [address] documented as of this encounter Procedures Procedure Name Priority Date/Time Associated Diagnosis Comments PROTHROMBIN TIME WHOLE BLD POC Routine 10/07/2025 10:32 AM EST ~PT, ~INR - ANTI COAG CLINIC Routine 10/07/2025 10:32 AM EST documented in this encounter Results * (ABNORMAL) PROTHROMBIN TIME WHOLE BLD POC (10/07/2025 10:32 AM EST) Protime 28.4(H) 11.1 - 13.5 sec [facility] 10/07/2025 10:3 2 AM EST 10/07/2025 10:33 AM EST us Generic External Data Provider LAB BLOOD ORDERAB LES Final Result Performing Organization Address [facility] Co de Phone Number [facility] [address] [place] [phone] * (ABNORMAL) ~PT, ~INR - ANTI COAG CLINIC (10/07/2025 10:32 AM EST) Prothrombin Time INR 2.4(H) 0.9 - 1.1 [facility] Comment:METER #: [id number] TERNATIONAL NORMALIZED RATIO (INR) REFERENCE RANGES Reference RangeFor patients not on anticoagulant therapy: 0.9 - 1.1INR ranges for oral anticoagulanttherapy:For prevention and treatment of venous thrombosis and pulmonary embolism: 2.0 - 3.0For acute myocardial infarction with aspirin therapy: 2.0 - 3.0For acute myocardial infarction without aspirin therapy: 3.0 - 4.0For patients with mechanical prosthetic heart valves: 2.5 - 3.5 10/07/2025 10:3 2 AM EST 10/07/2025 10:33 AM EST us Generic External Data Provider LAB BLOOD ORDERAB LES Final Result Performing Organization Address [facility] Co de Phone Number [facility] [address] [place] [phone] documented in this encounter Visit Diagnoses Not on filedocumented in this encounter Additional Health Concerns Assessment Noted Time PHQ-9 Depression Total Score: 14 025 11:30 AM EDT documented as of this encounter Care Teams Turf Farm Worker Relationship Specialty Start Date End Date Mariya Juan MD [address] [place] [phone] PCP - General Internal Medicine 04/28/23 documented as of this encounter
--- OUTSIDE RECORDS SUMMARY | 2025-10-07 13:04 | XMS_ITS | Encounter Summary ---
Author Organization [employer] Address 75 [facility] 7t [place] [address] Care Team Providers Care Refrigeration Mechanic Name Role Phone Kay Dennis Primary Care Provider Mariya Lombardi MD Primary Care Pro vider Encounter Details Date Type Department Care Team (Late Contact Info) Description 12/16/2022 Orders Only [facility] MEDICINE [address] [place], [place] [phone] Aida Villegas LPN Social History Tobacco Use [...] 10/22/2025 9:00 AM EST Nutrition [facility] DIABETES/NUTRITION [address] [place], [place] [phone] Amena Fu RD 230 [place], [place] [phone] 10/22/2025 11:15 AM EST Office Visit [facility] MEDICINE [address] [place] [address] Mariya Juan MD [address] [place] [address] 12/09/2025 10:30 AM EST Office Visit [facility] OPTOMETRY [address] [place] [address] Shivarichard Ernestina, OD [address] [place] [address] documented as of this encounter Procedures Procedure Name Priority Date/Time Associated Diagnosis Comments PROTHROMBIN TIME WHOLE BLD POC Routine 12/16/2022 2:35 PM EST ~PT, ~INR - ANTI COAG CLINIC Routine 12/16/2022 2:35 PM EST documented in this encounter Results * (ABNORMAL) PROTHROMBIN TIME WHOLE BLD POC (12/16/2022 2:35 PM EST) Protime 45.7(H) 11.1 - 13.5 sec [facility] 12/16/2022 2:35 PM EST 12/16/2022 2:36 PM EST [facility] External Provider LAB BLO OD ORDERABLES Final Result [facility] [address] [place] [address] [phone] * (ABNORMAL) ~PT, ~INR - ANTI COAG CLINIC (12/16/2022 2:35 PM EST) Prothrombin Time INR 3.8(H) 0.9 - 1.1 [facility] Comment:METER #: [id number] TERNATIONAL NORMALIZED RATIO (INR) REFERENCE RANGES Reference [...] 2:35 PM EST 12/16/2022 2:36 PM EST [facility] External Provider LAB BLO OD ORDERABLES Final Result [facility] [address] [place] [phone] documented in this encounter Visit Diagnoses Not on filedocumented in this encounter Care Teams Refrigeration Mechanic Relationship Specialty Start Date End Date Kay Dennis FNP PCP - General Family Medicine 07/05/22 04/27/23 Mariya Juan MD 230 [place] [address] PCP - General Internal Medicine 04/28/23 documented as of this encounter
--- OUTSIDE RECORDS SUMMARY | 2025-10-07 13:04 | XMS_ITS | Encounter Summary ---
Author Organization [employer] Address [address] [place] [address] 7t [place] [address] Care Team Providers Care Freight Elevator Erector Name Role Phone Mariya Juan MD Primary Care Pro vider Encounter Details Date Type Department Care Team ([facility] st Contact Info) Description 09/26/2025 Results Follow-Up [facility] [address] [place] [address] Mariya Juan MD [address] [place] [address] ~PT, ~INR - ANTI COAG CLINIC, PROTHROMBIN [...] the past 12 months, has t he [employer], gas, oil or water [employer] threatened to shut off services in your [...] Encounter Note - Mariya Cho MD - 09/26/2025 4:57 AM EST Pt f at coumadin clinic -Pt range goal 2.5-3.5. documented in this encounter Plan of Treatment Upcoming Encounters Date Type Department Care Team (Late st Contact Info) Description 10/22/2025 9:00 AM EST Nutrition [facility] DIABETES/NUTRITION [address] [place] [phone] [place], [place] [phone] 10/22/2025 11:15 AM EST Office Visit [facility] [address] [place] [address] [phone] Mariya Juan MD [address] [place], [place] [phone] 12/09/2025 10:30 AM EST Office Visit [facility] OPTOMETRY [address] [place], [place] [phone] Ernestina Gayle, OD [address] [place], [place] [phone] documented as of this encounter Visit Diagnoses Not on filedocumented in this encounter Additional Health Concerns Assessment Noted Time PHQ-9 Depression Total Score: 14 025 11:30 AM EDT documented as of this encounter Care Teams Freight Elevator Erector Relationship Specialty Start Date End Date Mariya Juan MD [address] [place] [address] [phone] PCP - General Internal Medicine 04/28/23 documented as of this encounter
--- OUTSIDE RECORDS SUMMARY | 2025-10-07 13:04 | XMS_ITS | Encounter Summary ---
Author Organization [employer] Address 75 [facility] 7 [place] [address] Care Team Providers Care Financial Aid Name Role Phone Mariya Juan MD Primary Care Pro vider Reason for Visit * Reason Onset Date Comments Med Refill 04/20/2024 Encounter Details Date Type Department Care Team ([facility] st Contact Info) Description 04/20/2024 Telephone [facility] MEDICINE [address] [place], [place] [phone] Mariya Juan MD [address] [place] [address] Med Refill Social History Tobacco Use Types [...] PM EDT Received call from Freida from [facility] [place]mad[place]. Pt back [...] 04/20/2024 4:01 PM EDT TC placed to [facility] Anticoagulation to inquire when pt last got INR drawn. According to the corporate receptionist the pt was to come for [...] solution prefilled syringe To be sent to: [id number] - [facility] [address] [facility] documented in this encounter Plan of Treatment Upcoming Encounters Date Type Department Care Team (Late st Contact Info) Description 10/22/2025 9:00 AM EST Nutrition [facility] DIABETES/NUTRITION [address] [place] [phone] [place] [phone] 10/22/2025 11:15 AM EST Office Visit [facility] MEDICINE [address] [place] [phone] Mariya Juan MD [address] [place] [address] 12/09/2025 10:30 AM EST Office Visit [facility] OPTOMETRY [address] [place], [place] [phone] Ernestina Gayle, OD [address] [place], [place] [phone] documented as of this encounter Visit Diagnoses Not on filedocumented in this encounter Additional Health Concerns Assessment Noted Time PHQ-9 Depression Total Score: 6 04/28/20 23 2:32 PM EDT documented as of this encounter Care Teams Financial Aid Relationship Specialty Start Date End Date Mariya Juan MD [address] [place] [address] [phone] PCP - General Internal Medicine 04/28/23 documented as of this encounter
--- OUTSIDE RECORDS SUMMARY | 2025-10-07 13:04 | XMS_ITS | Clinical Summary ---
Author Organization [employer] Address [address] [facility] 7t [place] [address] Care Team Providers Care Guard Museum Name Role Phone Mariya Juan MD Primary [...] weakness 04/28/2023 Overview (04/28/2023): Was seen at [facility] on 08/17/22 with noted nausea, diaphoresis in exam room, discomfort, profound fatigue, referred to [facility] ED now. Went to [facility] ED on 08/18/22 and was admitted for infection and started antibiotics. Blood cultures on 08/18/22 and 08/20/22 grew MSSA. 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 Plan was to transfer [facility]. Transferred to [facility] on 08/21/22 for further management of infective [...] bleed improving Has PT in home through [facility]. Assessment & Plan (04/28/2023 10:03 PM EDT): Pt completing OT soon Will refer pt to OT [facility] Core again Continue hand exercises Followup 3 month or sooner PRN with new PCP Intraparenchymal hemorrhage of brain (CMS/HCC) 0 04/28/2023 Overview (04/28/2023): Was seen at [facility] on 08/17/22 with noted nausea, diaphoresis in exam room, discomfort, profound fatigue, referred to [facility] ED now. Went to [facility] ED on 08/18/22 and was admitted for infection and started antibiotics. Blood cultures on 08/18/22 and 08/20/22 grew MSSA. 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 Plan was to transfer [facility]. Transferred to [facility] on 08/21/22 for further management of infective [...] endocarditis 11/03/2022 Overview (04/28/2023): Was seen at [facility] on 08/17/22 with noted nausea, diaphoresis in exam room, discomfort, profound fatigue, referred to [facility] ED now. Went to [facility] ED on 08/18/22 and was admitted for infection and started antibiotics. Blood cultures on 08/18/22 and 08/20/22 grew MSSA. 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 Plan was to transfer [facility]. Transferred to [facility] on 08/21/22 for further management of infective [...] Coumadin clinic, PCP and specialists Substance abuse ([facility]) 11/06/2014 Overview (04/28/2023): Last used Percocet 2013. [...] organization. Date Type Department Care Team Description 10/07/2025 Orders Only GENERIC EXTERNAL DATA DEPARTMENT Provider, Generic External Data 09/26/2025 Results Follow-Up [address] [address] Mariya Juan MD ~PT, ~INR - ANTI COAG CLINIC, PROTHROMBIN TIME WHOLE BLD POC 09/25/2025 Orders Only GENERIC EXTERNAL DATA DEPARTMENT Provider, Generic External Data 09/18/2025 Telephone [facility] [address] [place] [phone] Mariya Juan MD CRITICAL LAB 09/18/2025 Orders Only GENERIC EXTERNAL DATA DEPARTMENT Provider, Generic External Data 09/13/2025 Telephone [facility] [address] [place] [phone] Mariya Juan MD Nurse Triage 09/13/2025 Refill [facility] [address] [place] [address] Mariya Juan MD Anxiety state 08/16/2025 Results Follow-Up [facility] [address] Mariya Juan MD ~PT, ~INR - ANTI COAG CLINIC, PROTHROMBIN TIME WHOLE BLD POC 08/16/2025 Orders Only GENERIC EXTERNAL DATA DEPARTMENT Provider, Generic External Data 08/12/2025 Travel 08/11/2025 Orders Only [facility] [place] [address] Mariya Juan MD 08/09/2025 10:45 AM EDT Office Visit [facility] [place] [address] Mariya Juan MD Class 1 obesity due [...] brain (CMS/HCC) (HCC); Transaminitis 08/09/2025 Patient Outreach [facility] [place] [address] Mariya Juan MD Care Coordination (CHW outreach for SDOH PT-1 and food needs-referral completed /) 08/09/2025 Telephone [facility] [address] Mariya Juan MD Pre OP note 08/09/2025 Travel 08/08/2025 Telephone [facility] [place] [address] Mariya Juan MD chart prep 07/26/2025 Results Follow-Up [facility] [place] [address] Mariya Juan MD ~PT, ~INR - ANTI COAG CLINIC, PROTHROMBIN TIME WHOLE BLD POC 07/26/2025 Orders Only GENERIC EXTERNAL DATA DEPARTMENT Provider, Generic External Data 07/15/2025 Results Follow-Up [facility] [address] [place] [address] Mariya Juan MD ~PT, ~INR - ANTI COAG CLINIC, PROTHROMBIN TIME WHOLE BLD POC 07/15/2025 Orders Only GENERIC EXTERNAL DATA DEPARTMENT Provider, Generic External Data 07/12/2025 Results Follow-Up [address] [address] Mariya Juan MD ~PT, ~INR - ANTI COAG CLINIC, PROTHROMBIN TIME WHOLE BLD POC 07/12/2025 Orders Only [facility] [address] [place] [address] Mariya Juan MD Hx of prosthetic mitral valve 07/12/2025 Telephone [facility] [address] [place] [address] Mariya Juan MD Critical INR 07/12/2025 Orders Only GENERIC EXTERNAL DATA DEPARTMENT Provider, Generic External Data from Last 3 Months Immunizations Immunization Administration Dates Next Due DTaP 07/18/1989, 7,12/20/1986,11/19 Hep B, Adolescent or Pediatric 12/10/1998,1997,1998 Hib ([facility]) 10/20/1987 Influenza injectable quadriv alent [...] 9:00 AM EST Nutrition [facility] [address] [place] [address] [place] [address] 10/22/2025 11:15 AM EST Office Visit [facility] [address] [place] [address] Mariya Juan MD [address] [place] [address] 12/09/2025 10:30 AM EST Office Visit [facility] [address] [place] [phone] Ernestina Gayle, OD [address] [place] [address] Health Maintenance Due Date Last Done Comments [...] COAG CLINIC Routine 10/07/2025 10:32 AM EST PROTHROMBIN TIME WHOLE BLD POC Routine 09/25/2025 [...] COAG CLINIC Routine 07/12/2025 11:37 AM EDT HEPATITIS C AB W/REFL TO [...] WHOLE BLD POC (10/07/2025 10:32 AM EST) Only the most recent of7 resultswithin the time period is included. Protime 28.4(H) 11.1 - 13.5 sec [facility] 10/07/2025 10:3 2 AM EST 10/07/2025 10:33 AM EST us Generic External Data Provider LAB BLOOD ORDERAB LES Final Result Performing Organization Address City/State/[facility] Co de Phone Number [facility] [address] [place] [phone] * (ABNORMAL) ~PT, ~INR - ANTI COAG CLINIC (10/07/2025 10:32 AM EST) Only the most recent of7 resultswithin the time period is included. Prothrombin Time INR 2.4(H) 0.9 - 1.1 [facility] Comment:METER #: [id number] TERNATIONAL NORMALIZED RATIO (INR) REFERENCE RANGES Reference [...] ORDERAB LES Final Result Performing Organization Address [facility] Co de Phone Number [facility] [address] [place] [phone] * ECG 12 lead (08/09/2025 12:28 PM EDT) Narrative Mariya Juan MD - 08/09/2025 12:28 PM EDT EKG today HR 71,NSR, Qtc 424,only TWI in lead III ,intra-atrial /slight intraventricular conduction delay Mariya Cho MD ECG ORDERABLES F inal Result * Hepatitis C Antibody with Reflex to HCV, RNA, Quantitative, Real-Time PCR (09/14/2024 4:32 PM EST) Hepatitis C Antibody Nonreactive Nonreactive [facility] Comment:Antibodies to HCV no t detected; does not exclude early acuteHCV infection. Blood Venous blood specimen / Unknown 09/14/2024 4:32 PM EST 09/14/2024 6:05 PM EST Mariya Cho MD LAB BLOOD ORDERAB LES Final Result Performing Organization Address [facility] Co de Phone Number [facility] [address] [place] [phone] * HIV-1/2 Antigen and Antibodies, Fourth Generation, with Reflexes (09/14/2024 4:32 PM EST) HIV AB/AG Nonreactive Nonreactive [facility] Comment:HIV-1 p24 Ag and/or HIV-1/HIV-2 Ab not detected.A test result that is nonreactive does not exclude thepossibility of exposure to or infection with HIV-1 and/orHIV-2. Nonreactive results in this assay for individualswith prior exposure to HIV-1 and/or HIV-2 may be due toantigen and antibody levels that are below the limit ofdetection of this assay.The [employer] HIV Ag/Ab Combo assay result andsupplemental assay results should be interpreted inconjunction with the patient's clinical presentation,history and other laboratory results. If the results areinconsistent with clinical evidence, additional testing issuggested to confirm the result. Blood Venous blood specimen / Unknown 09/14/2024 4:32 PM EST 09/14/2024 6:05 PM EST us Mariya Cho MD LAB BLOOD ORDERAB LES Final Result [facility] [address] [place] [phone] * (ABNORMAL) Lipid Panel, Standard (09/14/2024 4:23 PM EST) Triglycerides 194(H) <150 mg/dL [facility] Comment:Desirable Triglyceri de: less than 150 mg/dLBorderline High Triglyceride 150-199 mg/dLHigh Triglyceride: 200-499 mg/dLVery High Triglyceride: greater than or equal to 5OO mg/dL Cholesterol 131 <200 mg/dL [facility] Comment:Desirable Cholestero l: less than 200 mg/dLBorderline High Cholesterol: 200-239 mg/dLHigh Cholesterol: greater than 239 mg/dL LDL Cholesterol Calculated 62 <100 mg/dL [facility] Comment:Desirable LDL: less than 100 mg/dLNear Optimal/Above Optimal LDL: 110- 129 mg/dLBorderline High LDL: 130-159 mg/dLHigh LDL: 160-189 mg/dLVery High LDL: greater than or equal to 190 mg/dL HDL Cholesterol 31(L) >40 mg/dL [facility] Comment:Desirable HDL: great er than 40 mg/dL Note: This HDL assay may give artificially low results in patients with liver disease. Blood Venous blood specimen / Unknown 09/14/2024 4:23 PM EST 09/14/2024 6:05 PM EST Mariya Cho MD LAB BLOOD ORDERAB LES Final Result [facility] [address] [place] [phone] from Last 3 Months or Most Recently Relevant to Health Maintenance Insurance [facility] ONE CARE < 65 DENIS ERNANDEZ [id number] Care Teams Guard Museum Relationship Specialty Start Date End Date Mariya Juan MD [address] [place] [phone] PCP - General Internal Medicine 04/28/23
--- OUTSIDE RECORDS SUMMARY | 2025-10-07 13:04 | XMS_ITS | Encounter Summary ---
Author Organization [employer] Address [address] [place] [address] 7 [place] [address] Care Team Providers Care Barrel Coater Name Role Phone Mariya Juan MD Primary Care Pro vider Reason for Visit * Reason Onset Date Comments Med Refill 01/08/2025 Encounter Details Date Type Department Care Team ([facility] st Contact Info) Description 01/08/2025 Telephone [facility] [address] [place] [address] Mariya Juan MD [address] [place] [address] Med Refill Social History Tobacco Use Types [...] solution prefilled syringe To be sent to: [id number] [address] [facility] documented in this encounter Plan of Treatment Upcoming Encounters Date Type Department Care Team ([facility] st Contact Info) Description 10/22/2025 9:00 AM EST Nutrition [facility] DI[facility]ETES/NUTRITION [address] [place], [place] [phone] Amena Fu [address] [place], [place] [phone] 10/22/2025 11:15 AM EST Office Visit [facility] [address] [place] [address] Mariya Juan MD [address] [place], [place] [phone] 12/09/2025 10:30 AM EST Office Visit [facility] OPT[facility] [address] [place] [address] Ernestina Gayle, OD [address] [place], [place] [phone] documented as of this encounter Visit Diagnoses Not on filedocumented in this encounter Additional Health Concerns Assessment Noted Time PHQ-9 Depression Total Score: 12 024 2:22 PM EDT documented as of this encounter Care Teams Barrel Coater Relationship Specialty Start Date End Date Mariya Juan MD [address] [place], [place] [phone] PCP - General Internal Medicine 04/28/23 documented as of this encounter
--- OUTSIDE RECORDS SUMMARY | 2025-10-07 13:04 | XMS_ITS | Encounter Summary ---
Author Organization [employer] Address [address] [facility] 7t [place] [address] Care Team Providers Care Distributor Cleaner Name Role Phone Mariya Juan MD Primary Care Pro vider Reason for Visit * Reason Comments Med Refill Encounter Details Date Type Department Care Team (Late st Contact Info) Description 05/23/2023 Refill [facility] MEDICINE [address] [place], [place] [phone] Kay Dennis FNP Social History Tobacco Use [...] Info) Description 10/22/2025 9:00 AM EST Nutrition [facility] DIABETES/NUTRITION [address] [place], [place] [phone] Amena Fu, SAMMI [address] [place] [address] 10/22/2025 11:15 AM EST Office Visit [facility] MEDICINE [address] [place] [address] Mariya Juan MD [address] [place] [address] 12/09/2025 10:30 AM EST Office Visit [facility] OPTOMETRY [address] [place], [place] [phone] Ernestina Gayle, OD [address] [place], [place] [phone] documented as of this encounter Visit Diagnoses Not on filedocumented in this encounter Additional Health Concerns Assessment Noted Time PHQ-9 Depression Total Score: 6 04/28/20 23 2:32 PM EDT documented as of this encounter Care Teams Distributor Cleaner Relationship Specialty Start Date End Date Mariya Juan MD [address] [place], [place] [phone] PCP - General Internal Medicine 04/28/23 documented as of this encounter
--- OUTSIDE RECORDS SUMMARY | 2025-10-07 13:04 | XMS_ITS | Encounter Summary ---
Author Organization [employer] Address [address] [facility] 7t [place] [address] Care Team Providers Care Branch Sales And Service Representative Name Role Phone Kay Dennis SHERIFFS DETECTIVE Primary Care Provider Mariya Lombardi MD Primary Care Pro vider Reason for Visit * Reason Onset Date Comments Durable Medical Equipment 02/25/2023 Encounter Details Date Type Department Care Team (Late st Contact Info) Description 02/25/2023 Telephone [facility] [address] [place] [address] Kay Dennis, SHERIFFS DETECTIVE Durable Medical Equipment Social History Tobacco Use [...] If any questions please contact Tammy at [phone] documented in this encounter Plan of Treatment Upcoming Encounters Date Type Department Care Team (Late st Contact Info) Description 10/22/2025 9:00 AM EST Nutrition [facility] DIABETES/NUTRITION [address] [place] [address] Amena Fu, RD [address] [place] [address] 10/22/2025 11:15 AM EST Office Visit [facility] [address] [place] [address] Mariya Juan MD [address] [place] [address] 12/09/2025 10:30 AM EST Office Visit [facility] [address] [place], [place] [phone] Ernestina Gayle, OD [address] [place] [address] documented as of this encounter Visit Diagnoses Not on filedocumented in this encounter Care Teams Branch Sales And Service Representative Relationship Specialty Start Date End Date Kay Dennis FNP PCP - General Family Medicine 07/05/22 04/27/23 Mariya Juan MD [address] [place] [phone] PCP - General Internal Medicine 04/28/23 documented as of this encounter
== END 2025-10-07 10:41 | disposition home or self-care (01) ==
LOC: HO.ACS 10:23
PROVIDERS: PCP Student in an Organized Health Care Education/Training Program; Visit Provider Internal Medicine Medical Oncology
DX: Z79.01 Long term (current) use of anticoagulants (principal)

== ENCOUNTER → 2025-10-07 10:23 | Outpatient (BNVA) | payer OTHER, SELFPAY | PROVIDERS: PCP Student in an Organized Health Care Education/Training Program; Visit Provider Internal Medicine Medical Oncology | DX: Z95.2 Presence of prosthetic heart valve (principal); Z79.01 Long term (current) use of anticoagulants; Z51.81 Encounter for therapeutic drug level monitoring | CPT/HCPCS: 85610; 99211 ==

== ENCOUNTER 2025-10-17 14:00 | Outpatient (AMB) | payer OTHER, SELFPAY ==
[2025-10-17 14:06] LABS: Prothrombin Time Whole Bld POC 27.0 sec (11.1-13.5); ~PT, ~INR - Anti Coag Clinic 2.3 (0.9-1.1)
--- NOTE | 2025-10-17 14:19 | MHC.OFFVISCO ---
Intake Intake Visit Reasons: Anticoagulation Allergies hydrocodone (From VICODIN) Allergy (Unknown, Verified 10/17/25 14:01) GI UPSET Medication List - Last Reconciled 10/17/25 by Kayla Alvarez RN acetaminophen 325 mg PO QID PRN 7 days acetaminophen ER (Tylenol Arthritis Pain) 1,300 mg PO Q8H PRN albuterol sulfate 90 mcg/actuation (ProAir HFA) 2 puffs inhalation Q4-6H PRN atorvastatin 20 mg PO DAILY blood pressure test kit-large As directed buprenorphine-naloxone 8-2 mg (Suboxone) 1 film sublingual BID celecoxib (Celebrex) 200 mg PO DAILY PRN coenzyme Q10 (Co Q-10) PO fluticasone propionate 50 mcg/actuation sprays intranasal PRN hydroxyzine pamoate 25 mg PO TID inhalational spacing device ([employer] [facility] spacer) As directed loratadine 10 mg PO DAILY melatonin 5 mg PO BEDTIME PRN omeprazole 20 mg PO DAILY ondansetron HCl 4 mg PO Q8H PRN polyethylene glycol 3350 (Miralax) 17 grams PO DAILY sodium chloride 0.65% (Deep Sea Nasal) sprays intranasal warfarin 7.5 mg See Protocol PO 2XW warfarin 10 mg See Protocol PO 5XW Nursing Note INR: 2.3 out of therapeutic range of 2.5-3.5 States he might have missed a dose. Medications and supplements reviewed Patient status: feels well Medications or supplements: no changes Diet: no changes Denies any signs and symptoms of bleeding or clotting or unusual bruising Bleeding, bruising, clotting discussed Nutritional guidance given: to avoid greens today Dose: increase today's dose from 5mg to 7.5mg then usual dose of 7.5mg X 4 days and 5mg X 3 days (//) F/U INR Date: 10/25/25?? Patient verbalizing understanding of instructions with read back given. Anti-Coag Initial Assessment Social Hx Patient Tobacco Use Status: Former Tobacco user Tobacco use type: Cigarette alcohol intake: never Alcohol intake frequency: does not drink Coding Level of Care Code Est Patient Level 1 Diagnoses Current use of anticoagulant therapy Z79.01 Results AMB INR Fingerstick AMB INR Fingerstick 2.3 Last Edit by Kayla Alvarez RN on 10/17/25 14:06 interface delay Assessment & Plan Assessment & Plan (1) Current use of anticoagulant therapy: Code(s): Z79.01 - halfway (current) 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
--- OUTSIDE RECORDS SUMMARY | 2025-10-17 21:29 | XMS_ITS | Encounter Summary ---
Author Organization [employer] Address [address] [facility] 7t [place] [address] Care Team Providers Care Celebrity Manager Name Role Phone Kay Dennis Primary Care Provider Mariya Lombardi MD Primary Care Pro vider Encounter Details Date Type Department Care Team (Late Contact Info) Description 12/16/2022 Orders Only [facility] MEDICINE [address] [place], [place] [phone] Aida Villegas LPN Social History Tobacco Use [...] Info) Description 10/22/2025 9:00 AM EST Nutrition [facility] DIABETES/NUTRITION [address] [place], [place] [phone] Amena Fu RD [address] [place], [place] [phone] 10/22/2025 11:15 AM EST Office Visit [facility] MEDIC[facility] [address] [place] [address] Mariya Juan MD [address] [place] [address] 12/09/2025 10:30 AM EST Office Visit [facility] OPTOMETRY [address] [place] [address] Shivarichard Ernestina, OD [address] [place] [address] documented as of this encounter Procedures Procedure Name Priority Date/Time Associated Diagnosis Comments PROTHROMBIN TIME WHOLE BLD POC Routine 12/16/2022 2:35 PM EST ~PT, ~INR - ANTI COAG CLINIC Routine 12/16/2022 2:35 PM EST documented in this encounter Results * (ABNORMAL) PROTHROMBIN TIME WHOLE BLD POC (12/16/2022 2:35 PM EST) Protime 45.7(H) 11.1 - 13.5 sec [facility] 12/16/2022 2:35 PM EST 12/16/2022 2:36 PM EST [facility] External Provider LAB BLO OD ORDERABLES Final Result [facility] [address] [place] [phone] * (ABNORMAL) ~PT, ~INR - ANTI COAG CLINIC (12/16/2022 2:35 PM EST) Prothrombin Time INR 3.8(H) 0.9 - 1.1 [facility] Comment:METER #: [id number] TERNATIONAL NORMALIZED RATIO (INR) REFERENCE RANGES Reference [...] 2:35 PM EST 12/16/2022 2:36 PM EST [facility] External Provider LAB BLO OD ORDERABLES Final Result [facility] [address] [place] [phone] documented in this encounter Visit Diagnoses Not on filedocumented in this encounter Care Teams Celebrity Manager Relationship Specialty Start Date End Date Kay Dennis FNP PCP - General Family Medicine 07/05/22 04/27/23 Mariya Juan MD [address] [place] [address] PCP - General Internal Medicine 04/28/23 documented as of this encounter
--- OUTSIDE RECORDS SUMMARY | 2025-10-17 21:29 | XMS_ITS | Encounter Summary ---
Author Organization [employer] Address [address] [facility] 7t [place] [address] Care Team Providers Care Commercial Crabber Name Role Phone Kay Dennis WARP TRUCKER Primary Care Provider Mariya Lombardi MD Primary Care Pro vider Reason for Visit * Reason Onset Date Comments Durable Medical Equipment 02/25/2023 Encounter Details Date Type Department Care Team (Late st Contact Info) Description 02/25/2023 Telephone [facility] MEDICINE [address] [place] [address] Kay Dennis, WARP TRUCKER Durable Medical Equipment Social History Tobacco Use [...] long ago. Please sent to script [email or web address] If any questions please contact Tammy at [phone] documented in this encounter Plan of Treatment Upcoming Encounters Date Type Department Care Team (Late st Contact Info) Description 10/22/2025 9:00 AM EST Nutrition [facility] DIABETES/NUTRITION [address] [place] [address] Amena Fu, RD [address] [place] [address] 10/22/2025 11:15 AM EST Office Visit [facility] MEDICINE [address] [place] [address] Mariya Juan MD [address] [place] [address] 12/09/2025 10:30 AM EST Office Visit [facility] OPTOMETRY [address] [place], [place] [phone] Ernestina Gayle, OD [address] [place] [address] documented as of this encounter Visit Diagnoses Not on filedocumented in this encounter Care Teams Commercial Crabber Relationship Specialty Start Date End Date Kay Dennis FNP PCP - General Family Medicine 07/05/22 04/27/23 Mariya Juan MD [address] [place] [phone] PCP - General Internal Medicine 04/28/23 documented as of this encounter
--- OUTSIDE RECORDS SUMMARY | 2025-10-17 21:29 | XMS_ITS | Clinical Summary ---
Author Organization [employer] Address [address] [facility] 7t [place] [address] Care Team Providers Care Cement Handler Name Role Phone Mariya Juan MD Primary [...] THE FUTURE. 60 tablet 3 025 Active Enoxaparin Sodium (Lovenox) 100 MG/ML [...] mouth Once per day. 30 tablet 3 2025 Active amoxicillin (Amoxil) 500 MG capsuleIndication s:Pre-op evaluation Take 4 capsules before dental procedure 4 capsule Active naloxone (Narcan) 4 mg/0.1 mL nasal spray Administer 1 spray (4 mg) into affected nostril(s) if needed for opioid reversal. 2 each 1 Active escitalopram (Lexapro) 10 MG tablet Take 1 tablet (10 mg) by mouth Once per day. 30 tablet 2 2025 Active hydrOXYzine pamoate (Vistaril) 25 MG capsuleIndication s:Anxiety state TAKE 1 CAPSULE BY MOUTH EVERY 8 HOURS NEEDED FOR ANXIETY 90 capsule 1 Active ondansetron ODT (Zofran-ODT) 4 MG disintegrating tabletIndications :Nausea DISSOLVE 2 TABLETS ON TOP OF THE TONGUE THEN SWALLOW EVERY 12 HOURS 60 tablet Active polyethylene glycol, PEG, 3350 (MiraLax) 17 [...] Pharmacy)) ondansetron ODT (Zofran-ODT) 4 MG disintegrating tabletIndications [...] weakness 04/28/2023 Overview (04/28/2023): Was seen at [facility] on 08/17/22 with noted nausea, diaphoresis in exam room, discomfort, profound fatigue, referred to [facility] ED now. Went to [facility] ED on 08/18/22 and was admitted for infection and started antibiotics. Blood cultures on 08/18/22 and 08/20/22 grew MSSA. 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 Plan was to transfer [facility]. Transferred to [facility] on 08/21/22 for further management of infective [...] bleed improving Has PT in home through [facility]. Assessment & Plan (04/28/2023 10:03 PM EDT): Pt completing OT soon Will refer pt to OT [facility] Core again Continue hand exercises Followup 3 month or sooner PRN with new PCP Intraparenchymal hemorrhage of brain (CMS/HCC) 0 04/28/2023 Overview (04/28/2023): Was seen at [facility] on 08/17/22 with noted nausea, diaphoresis in exam room, discomfort, profound fatigue, referred to [facility] ED now. Went to [facility] ED on 08/18/22 and was admitted for infection and started antibiotics. Blood cultures on 08/18/22 and 08/20/22 grew MSSA. 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 Plan was to transfer [facility]. Transferred to [facility] on 08/21/22 for further management of infective [...] endocarditis 11/03/2022 Overview (04/28/2023): Was seen at [facility] on 08/17/22 with noted nausea, diaphoresis in exam room, discomfort, profound fatigue, referred to [facility] ED now. Went to [facility] ED on 08/18/22 and was admitted for infection and started antibiotics. Blood cultures on 08/18/22 and 08/20/22 grew MSSA. 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 Plan was to transfer [facility]. Transferred to [facility] on 08/21/22 for further management of infective [...] Coumadin clinic, PCP and specialists Substance abuse ([facility]) 11/06/2014 Overview (04/28/2023): Last used Percocet 2013. [...] organization. Date Type Department Care Team Description 10/17/2025 Results Follow-Up [facility] [address] [place] [address] Mariya Juan MD ~PT, ~INR - ANTI COAG CLINIC, PROTHROMBIN TIME WHOLE BLD POC 10/17/2025 Orders Only GENERIC EXTERNAL DATA DEPARTMENT Provider, Generic External Data 10/15/2025 Telephone [facility] [address] [place] [address] Mariya Juan MD Care Coordination 10/15/2025 Refill [facility] [address] [place] [address] Mariya Juan MD Nausea; Constipation, unspecified constipation type 10/07/2025 Results Follow-Up [facility] [address] [place] [address] Mariya Juan MD ~PT, ~INR - ANTI COAG CLINIC, PROTHROMBIN TIME WHOLE BLD POC 10/07/2025 Orders Only GENERIC EXTERNAL DATA DEPARTMENT Provider, Generic External Data 09/26/2025 Results Follow-Up [facility] [address] [place] [address] Mariya Juan MD ~PT, ~INR - ANTI COAG CLINIC, PROTHROMBIN TIME WHOLE BLD POC 09/25/2025 Orders Only GENERIC EXTERNAL DATA DEPARTMENT Provider, Generic External Data 09/18/2025 Telephone [facility] [address] [place] [address] Mariya Juan MD CRITICAL LAB 09/18/2025 Orders Only GENERIC EXTERNAL DATA DEPARTMENT Provider, Generic External Data 09/13/20[address] [place] [address] Mariya Juan MD Nurse Triage 09/13/2025 Refill [facility] [address] [place] [address] Mariya Juan MD Anxiety state 08/16/2025 Results Follow-Up [facility] [address] [place] [address] Mariya Juan MD ~PT, ~INR - ANTI COAG CLINIC, PROTHROMBIN TIME WHOLE BLD POC 08/16/2025 Orders Only GENERIC EXTERNAL DATA DEPARTMENT Provider, Generic External Data 08/12/2025 Travel 08/11/2025 Orders Only [facility] [place] [place] [address] Mariya Juan MD 08/09/2025 10:45 AM EDT Office Visit [facility] [place] [address] Mariya Juan MD Class 1 obesity due [...] immunization; Dietary counseling; Exercise counseling; Right hemiparesis ([facility]) ([facility]); Substance abuse ([facility]) ([facility]); History of prosthetic heart valve; Health care maintenance; Mild major depression ([facility]); Anxiety; Right arm weakness; Intraparenchymal hemorrhage of brain ([facility]) ([facility]); Transaminitis 08/09/2025 Patient Outreach [address] [address] Mariya Juan MD Care Coordination ([facility] outreach for SDOH PT-1 and food needs-referral completed /) 08/09/[address] [address] Mariya Juan MD Pre OP note 08/09/2025 Travel 08/08/[address] [address] Mariya Juan MD chart prep 07/26/2025 Results Follow-Up [address] [address] Mariya Juan MD ~PT, ~INR - ANTI COAG CLINIC, PROTHROMBIN TIME WHOLE BLD POC 07/26/2025 Orders Only GENERIC EXTERNAL DATA DEPARTMENT Provider, Generic External Data from Last 3 Months Immunizations Immunization Administration Dates Next Due DTaP 07/18/1989, 7,12/20/1986,11/19 Hep B, Adolescent or Pediatric 12/10/1998,1997,1998 Hib ([facility]) 10/20/1987 Influenza injectable quadriv alent IIV4 [...] 10/22/2025 9:00 AM EST Nutrition [facility] [address] [place] [phone] [place] [address] 10/22/2025 11:15 AM EST Office Visit [facility] [address] [place] [address] [phone] Mariya Juan MD [address] [place], [place] [phone] 12/09/2025 10:30 AM EST Office Visit [facility] [address] [place], [place] [phone] Ernestina Gayle, OD [address] [place], [place] [phone] Health Maintenance Due Date Last Done Comments [...] Comments PROTHROMBIN TIME WHOLE BLD POC Routine 10/17/2025 2:05 PM EST ~PT, ~INR - ANTI COAG CLINIC Routine 10/17/2025 2:05 PM EST PROTHROMBIN TIME WHOLE BLD POC Routine 10/07/2025 [...] COAG CLINIC Routine 07/26/2025 11:19 AM EDT HEPATITIS C AB W/REFL TO HCV RNA, QN, PCR Routine 09/14/2024 4:32 PM EST Annual physical exam HIV 1/2 ANTIGEN/ANTIBODY, FOURTH GENERATION W/RFL Routine 09/14/2024 4:32 PM EST Annual physical exam LIPID PANEL, STANDARD Routine 09/14/2024 4:23 PM EST Annual physical exam from Last 3 Months or Most Recently Relevant to Health Maintenance Results * (ABNORMAL) PROTHROMBIN TIME WHOLE BLD POC (10/17/2025 2:05 PM EST) Only the most recent of6 resultswithin the time period is included. Protime 27.0(H) 11.1 - 13.5 sec [facility] 10/17/2025 2:05 PM EST 10/17/2025 2:06 PM EST us Generic External Data Provider LAB BLOOD ORDERAB LES Final Result [facility] [address] [place] [phone] * (ABNORMAL) ~PT, ~INR - ANTI COAG CLINIC (10/17/2025 2:05 PM EST) Only the most recent of6 resultswithin the time period is included. Prothrombin Time INR 2.3(H) 0.9 - 1.1 [facility] Comment:METER #: [id number] TERNATIONAL NORMALIZED RATIO (INR) REFERENCE RANGES Reference RangeFor patients not on anticoagulant therapy: 0.9 - 1.1INR ranges for oral anticoagulanttherapy:For prevention and treatment of venous thrombosis and pulmonary embolism: 2.0 - 3.0For acute myocardial infarction with aspirin therapy: 2.0 - 3.0For acute myocardial infarction without aspirin therapy: 3.0 - 4.0For patients with mechanical prosthetic heart valves: 2.5 - 3.5 10/17/2025 2:05 PM EST 10/17/2025 2:06 PM EST us Generic External Data Provider LAB BLOOD ORDERAB LES Final Result Performing Organization Address [facility] Co de Phone Number [facility] [address] [place] [phone] * ECG 12 lead (08/09/2025 12:28 PM EDT) Narrative Mariya Juan MD - 08/09/2025 12:28 PM EDT EKG today HR 71,NSR, Qtc 424,only TWI in lead III ,intra-atrial /slight intraventricular conduction delay Mariya Cho MD ECG ORDERABLES F inal Result * Hepatitis C Antibody with Reflex to HCV, RNA, Quantitative, Real-Time PCR (09/14/2024 4:32 PM EST) Hepatitis C Antibody Nonreactive Nonreactive [facility] Comment:Antibodies to HCV no t detected; does not exclude early acuteHCV infection. Blood Venous blood specimen / Unknown 09/14/2024 4:32 PM EST 09/14/2024 6:05 PM EST us Mariya Cho MD LAB BLOOD ORDERAB LES Final Result Performing Organization Address [facility] Co de Phone Number [facility] [address] [place] [phone] * HIV-1/2 Antigen and Antibodies, Fourth Generation, with Reflexes (09/14/2024 4:32 PM EST) HIV AB/AG Nonreactive Nonreactive [facility] Comment:HIV-1 p24 Ag and/or HIV-1/HIV-2 Ab not detected.A test result that is nonreactive does not exclude thepossibility of exposure to or infection with HIV-1 and/orHIV-2. Nonreactive results in this assay for individualswith prior exposure to HIV-1 and/or HIV-2 may be due toantigen and antibody levels that are below the limit ofdetection of this assay.The [employer] HIV Ag/Ab Combo assay result andsupplemental assay results should be interpreted inconjunction with the patient's clinical presentation,history and other laboratory results. If the results areinconsistent with clinical evidence, additional testing issuggested to confirm the result. Blood Venous blood specimen / Unknown 09/14/2024 4:32 PM EST 09/14/2024 6:05 PM EST us Mariya Cho MD LAB BLOOD ORDERAB LES Final Result [facility] [address] [place] [phone] * (ABNORMAL) Lipid Panel, Standard (09/14/2024 4:23 PM EST) Triglycerides 194(H) <150 mg/dL [facility] Comment:Desirable Triglyceri de: less than 150 mg/dLBorderline High Triglyceride 150-199 mg/dLHigh Triglyceride: 200-499 mg/dLVery High Triglyceride: greater than or equal to 5OO mg/dL Cholesterol 131 <200 mg/dL [facility] Comment:Desirable Cholestero l: less than 200 mg/dLBorderline High Cholesterol: 200-239 mg/dLHigh Cholesterol: greater than 239 mg/dL LDL Cholesterol Calculated 62 <100 mg/dL [facility] Comment:Desirable LDL: less than 100 mg/dLNear Optimal/Above Optimal LDL: 110- 129 mg/dLBorderline High LDL: 130-159 mg/dLHigh LDL: 160-189 mg/dLVery High LDL: greater than or equal to 190 mg/dL HDL Cholesterol 31(L) >40 mg/dL [facility] Comment:Desirable HDL: great er than 40 mg/dL Note: This HDL assay may give artificially low results in patients with liver disease. Blood Venous blood specimen / Unknown 09/14/2024 4:23 PM EST 09/14/2024 6:05 PM EST Mariya Cho MD LAB BLOOD ORDERAB LES Final Result [facility] [address] [place] [phone] from Last 3 Months or Most Recently Relevant to Health Maintenance Insurance [employer] < 65 Care Teams Cement Handler Relationship Specialty Start Date End Date Mariya Juan MD [address] [place] [address] PCP - General Internal Medicine 04/28/23
--- OUTSIDE RECORDS SUMMARY | 2025-10-17 21:29 | XMS_ITS | Encounter Summary ---
Author Organization [employer] Address [address] [place] [address] 7t [place] [address] Care Team Providers Care Machine Clothing Man Name Role Phone Mariya Juan MD Primary Care Pro vider Encounter Details Date Type Department Care Team ([facility] st Contact Info) Description 09/26/2025 Results Follow-Up [facility] [address] [place] [address] Mariya Juan MD [address] [place] [address] ~PT, ~INR - ANTI COAG CLINIC, PROTHROMBIN [...] the past 12 months, has t he [employer], gas, oil or water [employer] threatened to shut off services in your [...] Info) Description 10/22/2025 9:00 AM EST Nutrition [facility] [address] [place] [phone] [place], [place] [phone] 10/22/2025 11:15 AM EST Office Visit [facility] [address] [place] [address] [phone] Mariya Juan MD [address] [place], [place] [phone] 12/09/2025 10:30 AM EST Office Visit [facility] [address] [place], [place] [phone] Ernestina Gayle, OD [address] [place], [place] [phone] documented as of this encounter Visit Diagnoses Not on filedocumented in this encounter Additional Health Concerns Assessment Noted Time PHQ-9 Depression Total Score: 14 025 11:30 AM EDT documented as of this encounter Care Teams Machine Clothing Man Relationship Specialty Start Date End Date Mariya Juan MD [address] [place] [address] [phone] PCP - General Internal Medicine 04/28/23 documented as of this encounter
--- OUTSIDE RECORDS SUMMARY | 2025-10-17 21:29 | XMS_ITS | Encounter Summary ---
Author Organization [employer] Address [address] [place] [address] 7t [place] [address] Care Team Providers Care Tax Consultant Name Role Phone Mariya Juan MD Primary Care Pro vider Encounter Details Date Type Department Care Team ([facility] st Contact Info) Description 10/07/2025 Results Follow-Up [facility] [address] [place] [address] Mariya Juan MD [address] [place] [address] ~PT, ~INR - ANTI COAG CLINIC, PROTHROMBIN [...] the past 12 months, has t he [employer], gas, oil or water [employer] threatened to shut off services in your [...] Encounter Note - Mariya Cho MD - 10/07/2025 2:53 PM EST Pt f at coumadin clinic -Pt range goal 2.5-3.5. documented in this encounter Plan of Treatment Upcoming Encounters Date Type Department Care Team (Late st Contact Info) Description 10/22/2025 9:00 AM EST Nutrition [facility] [address] [place] [phone] [place], [place] [phone] 10/22/2025 11:15 AM EST Office Visit [facility] [address] [place] [address] [phone] Mariya Juan MD [address] [place], [place] [phone] 12/09/2025 10:30 AM EST Office Visit [facility] [address] [place], [place] [phone] Ernestina Gayle, OD [address] [place], [place] [phone] documented as of this encounter Visit Diagnoses Not on filedocumented in this encounter Additional Health Concerns Assessment Noted Time PHQ-9 Depression Total Score: 14 025 11:30 AM EDT documented as of this encounter Care Teams Tax Consultant Relationship Specialty Start Date End Date Mariya Juan MD [address] [place] [address] [phone] PCP - General Internal Medicine 04/28/23 documented as of this encounter
--- OUTSIDE RECORDS SUMMARY | 2025-10-17 21:29 | XMS_ITS | Encounter Summary ---
Author Organization [employer] Address [address] [place] [address] 7 [place] [address] Care Team Providers Care Foreign Car Mechanic Name Role Phone Mariya Juan MD Primary Care Pro vider Reason for Visit * Reason Onset Date Comments Med Refill 10/15/2025 Encounter Details Date Type Department Care Team (Late st Contact Info) Description 10/15/2025 Refill [facility] [address] [place] [address] Mariya Juan MD [address] [place] [address] Nausea; Constipation, unspecified constipation type Social History Tobacco [...] Encounter - Mary Ann Gallego LPN - 10/15/2025 10:51 AM EST Last seen 08/09/25. * Telephone Encounter - Javon Hendrickson - 10/15/2025 10:44 AM EST TC from pt requesting medication refill. Medications needing refill : ondansetron ODT (Zofran-ODT) 4 MG disintegrating tablet polyethylene glycol, PEG, 3350 (MiraLax) 17 GM/SCOOP powder [[id number]] To be sent to: [id number] - [place] - [address] [facility] documented in this encounter Plan of Treatment Upcoming Encounters Date Type Department Care Team (Late st Contact Info) Description 10/22/2025 9:00 AM EST Nutrition [facility] DI[facility]ETES/NUTRITION [address] [place] [address] mAena Fu, SAMMI [address] [place] [address] 10/22/2025 11:15 AM EST Office Visit [facility] [address] [place] [address] Mariya Juan MD [address] [place] [address] 12/09/2025 10:30 AM EST Office Visit [facility] OPT[facility] [address] [place], [place] [phone] Ernestina Gayle, OD [address] [place] [address] documented as of this encounter Visit Diagnoses Diagnosis Nausea Nausea alone Constipation, unspecified constipation type documented in this encounter Additional Health Concerns Assessment Noted Time PHQ-9 Depression Total Score: 14 025 11:30 AM EDT documented as of this encounter Care Teams Foreign Car Mechanic Relationship Specialty Start Date End Date Mariya Juan MD [address] [place], [place] [phone] PCP - General Internal Medicine 04/28/23 documented as of this encounter
--- OUTSIDE RECORDS SUMMARY | 2025-10-17 21:29 | XMS_ITS | Encounter Summary ---
Author Organization [employer] Address [address] [facility] 7 [place] [address] Care Team Providers Care Wood Barrel Reconditioner Name Role Phone Mariya Juan MD Primary Care Pro vider Reason for Visit * Reason Onset Date Comments Med Refill 04/20/2024 Encounter Details Date Type Department Care Team ([facility] st Contact Info) Description 04/20/2024 Telephone [facility] [address] [place], [place] [phone] Mariya Juan MD [address] [place] [address] Med Refill Social History Tobacco Use Types [...] EDT Telephone call placed to Freida at [facility] Coumadin clinic. Gave orders to continue [...] Received call from Freida from [facility] coumad[facility]. Pt back today for recheck, [...] PM EDT TC placed to [facility] Anticoagulation to inquire when pt last got INR drawn. According to the hotel or motel receptionist the pt was to come for [...] solution prefilled syringe To be sent to: [id number] - [facility] [address] [facility] documented in this encounter Plan of Treatment Upcoming Encounters Date Type Department Care Team (Late st Contact Info) Description 10/22/2025 9:00 AM EST Nutrition [facility] DI[facility]ETES/NUTRITION [address] [place] [phone] [place] [phone] 10/22/2025 11:15 AM EST Office Visit [facility]IC[facility] [address] [place] [phone] Mariya Juan MD [address] [place] [address] 12/09/2025 10:30 AM EST Office Visit [facility] [address] [place], [place] [phone] Ernestina Gayle, OD [address] [place], [place] [phone] documented as of this encounter Visit Diagnoses Not on filedocumented in this encounter Additional Health Concerns Assessment Noted Time PHQ-9 Depression Total Score: 6 04/28/20 23 2:32 PM EDT documented as of this encounter Care Teams Wood Barrel Reconditioner Relationship Specialty Start Date End Date Mariya Juan MD [address] [place] [address] [phone] PCP - General Internal Medicine 04/28/23 documented as of this encounter
--- OUTSIDE RECORDS SUMMARY | 2025-10-17 21:29 | XMS_ITS | Encounter Summary ---
Author Organization [employer] Address [address] [facility] 7t [place] [address] Care Team Providers Care Drier Operator Name Role Phone Mariya Juan MD Primary Care Pro vider Reason for Visit * Reason Comments Med Refill Encounter Details Date Type Department Care Team (Late st Contact Info) Description 05/23/2023 Refill [facility] [address] [place], [place] [phone] Kay Dennis FNP Social History Tobacco Use [...] Info) Description 10/22/2025 9:00 AM EST Nutrition [facility] [address] [place], [place] [phone] Amena Fu, SAMMI [address] [place] [address] 10/22/2025 11:15 AM EST Office Visit [facility] [address] [place] [address] Mariya Juan MD [address] [place] [address] 12/09/2025 10:30 AM EST Office Visit [facility] [address] [place], [place] [phone] Ernestina Gayle, OD [address] [place], [place] [phone] documented as of this encounter Visit Diagnoses Not on filedocumented in this encounter Additional Health Concerns Assessment Noted Time PHQ-9 Depression Total Score: 6 04/28/20 23 2:32 PM EDT documented as of this encounter Care Teams Drier Operator Relationship Specialty Start Date End Date Mariya Juan MD [address] [place], [place] [phone] PCP - General Internal Medicine 04/28/23 documented as of this encounter
--- OUTSIDE RECORDS SUMMARY | 2025-10-17 21:29 | XMS_ITS | Encounter Summary ---
Author Organization [employer] Address [address] [place] [address] 7 [place] [address] Care Team Providers Care News Editor Name Role Phone Mariya Juan MD Primary Care Pro vider Reason for Visit * Reason Onset Date Comments Care Coordination 10/15/2025 Encounter Details Date Type Department Care Team (Late st Contact Info) Description 10/15/2025 Telephone [facility] MEDICINE [address] [place] [address] Mariya Juan MD 230 [place] [address] Care Coordination Social History Tobacco Use Types Packs/Day Years [...] Telephone Encounter - Olga Mendes RN - 10/15/2025 4:10 PM EST Telephone call placed as requested below to see what is needed from us. They are closed. Will retask. * Telephone Encounter - Javon Hendrickson - 10/15/2025 10:46 AM EST Tc from pt requesting for PCP to get in contact with the dentist that has requested the release form. [facility]. Any questions contact pt at [phone] documented in this encounter Plan of Treatment Upcoming Encounters Date Type Department Care Team (Late st Contact Info) Description 10/22/2025 9:00 AM EST Nutrition [facility] DIABETES/NUTRITION [address] [place] [address] [place] [address] 10/22/2025 11:15 AM EST Office Visit [facility] MEDICINE [address] [place] [address] Mariya Juan MD [address] [place] [address] 12/09/2025 10:30 AM EST Office Visit [facility] OPTOMETRY [address] [place], [place] [phone] Ernestina Gayle, OD [address] [place] [address] documented as of this encounter Visit Diagnoses Not on filedocumented in this encounter Additional Health Concerns Assessment Noted Time PHQ-9 Depression Total Score: 14 025 11:30 AM EDT documented as of this encounter Care Teams News Editor Relationship Specialty Start Date End Date Mariya Juan MD [address] [place] [phone] PCP - General Internal Medicine 04/28/23 documented as of this encounter
--- OUTSIDE RECORDS SUMMARY | 2025-10-17 21:29 | XMS_ITS | Encounter Summary ---
Author Organization [employer] Address [address] 7t [place] [address] Care Team Providers Care Stretcher Helper Name Role Phone Mariya Juan MD Primary Care Pro vider Encounter Details Date Type Department Care Team (Late st Contact Info) Description 10/17/2025 Orders Only GENERIC EXTERNAL DATA DEPARTMENT [...] EST Nutrition [facility] DIABETES/NUTRITION [address] [place] [phone] Amena Fu, SAMMI 230 [place] [address] 10/22/2025 11:15 AM EST Office Visit [facility] MEDICINE [address] [place] [address] Mariya Juan MD 230 [place] [address] 12/09/2025 10:30 AM EST Office Visit [facility] OPTOMETRY [address] [place] [address] Ernestina Gayle, OD [address] [place] [address] documented as of this encounter Procedures Procedure Name Priority Date/Time Associated Diagnosis Comments PROTHROMBIN TIME WHOLE BLD POC Routine 10/17/2025 2:05 PM EST ~PT, ~INR - ANTI COAG CLINIC Routine 10/17/2025 2:05 PM EST documented in this encounter Results * (ABNORMAL) PROTHROMBIN TIME WHOLE BLD POC (10/17/2025 2:05 PM EST) Protime 27.0(H) 11.1 - 13.5 sec [facility] 10/17/2025 2:05 PM EST 10/17/2025 2:06 PM EST Generic External Data Provider LAB BLOOD ORDERAB LES Final Result Performing Organization Address [facility] de Phone Number [facility] [address] [place] [phone] * (ABNORMAL) ~PT, ~INR - ANTI COAG CLINIC (10/17/2025 2:05 PM EST) Prothrombin Time INR 2.3(H) 0.9 - 1.1 [facility] Comment:METER #: [id number] TERNATIONAL NORMALIZED RATIO (INR) REFERENCE RANGES Reference [...] ORDERAB LES Final Result Performing Organization Address [facility] de Phone Number [facility] [address] [place] [phone] documented in this encounter Visit Diagnoses Not on filedocumented in this encounter Additional Health Concerns Assessment Noted Time PHQ-9 Depression Total Score: 14 025 11:30 AM EDT documented as of this encounter Care Teams Stretcher Helper Relationship Specialty Start Date End Date Mariya Juan MD [address] [place] [phone] PCP - General Internal Medicine 04/28/23 documented as of this encounter
--- OUTSIDE RECORDS SUMMARY | 2025-10-17 21:29 | XMS_ITS | Encounter Summary ---
Author Organization [employer] Address [address] [place] [address] 7t [place] [address] Care Team Providers Care Couture Alterations Dressmaker Name Role Phone Mariya Juan MD Primary Care Pro vider Encounter Details Date Type Department Care Team ([facility] st Contact Info) Description 10/17/2025 Results Follow-Up [facility] MEDICINE [address] [place] [address] Mariya Juan MD 230 [place] [address] ~PT, ~INR - ANTI COAG CLINIC, PROTHROMBIN [...] the past 12 months, has t he [employer], gas, oil or water [employer] threatened to shut off services in your [...] Encounter Note - Mariya Cho MD - 10/17/2025 3:18 PM EST Pt f at coumadin clinic -Pt range goal 2.5-3.5. documented in this encounter Plan of Treatment Upcoming Encounters Date Type Department Care Team (Late st Contact Info) Description 10/22/2025 9:00 AM EST Nutrition [facility] DIABETES/NUTRITION [address] [place] [phone] 230 [place], [place] [phone] 10/22/2025 11:15 AM EST Office Visit [facility] MEDICINE [address] [place] [phone] Mariya Juan MD 230 [place], [place] [phone] 12/09/2025 10:30 AM EST Office Visit [facility] OPTOMETRY [address] [place], [place] [phone] Ernestina Gayle, OD 267 [place], [place] [phone] documented as of this encounter Visit Diagnoses Not on filedocumented in this encounter Additional Health Concerns Assessment Noted Time PHQ-9 Depression Total Score: 14 025 11:30 AM EDT documented as of this encounter Care Teams Couture Alterations Dressmaker Relationship Specialty Start Date End Date Mariya Juan MD [address] [place] [address] [phone] PCP - General Internal Medicine 04/28/23 documented as of this encounter
--- OUTSIDE RECORDS SUMMARY | 2025-10-17 21:29 | XMS_ITS | Encounter Summary ---
Author Organization [employer] Address [address] [facility] 7t [place] [address] Care Team Providers Care Ob/Gyn Physician Name Role Phone Mariya Juan MD Primary Care Pro vider Reason for Visit * Reason Comments Med Refill Encounter Details Date Type Department Care Team ([facility] st Contact Info) Description 04/25/2025 Refill [facility] MEDICINE 230 [place], [place] [phone] Bertha Diaz MD 230 [place], [place] [phone] Constipation, unspecified constipation type Social History Tobacco [...] the past 12 months, has t he [employer], gas, oil or water company threatened [...] Info) Description 10/22/2025 9:00 AM EST Nutrition [facility] DIABETES/NUTRITION [address] [place] [phone] Amena Fu, RD 230 [place] [address] 10/22/2025 11:15 AM EST Office Visit [facility] MEDICINE [address] [place] [phone] Mariya Juan MD 230 [place] [address] 12/09/2025 10:30 AM EST Office Visit [facility] OPTOMETRY [address] [place] [phone] Ernestina Gayle, OD 267 [place] [address] documented as of this encounter Visit Diagnoses Diagnosis Constipation, unspecified constipation type documented in this encounter Additional Health Concerns Assessment Noted Time PHQ-9 Depression Total Score: 12 024 2:22 PM EDT documented as of this encounter Care Teams Ob/Gyn Physician Relationship Specialty Start Date End Date Mariya Juan MD [address] [place] [phone] PCP - General Internal Medicine 04/28/23 documented as of this encounter
--- OUTSIDE RECORDS SUMMARY | 2025-10-17 21:29 | XMS_ITS | Encounter Summary ---
Author Organization [employer] Address [address] [place] [address] 7t [place] [address] Care Team Providers Care Ship Runner Name Role Phone Mariya Juan MD Primary Care Pro vider Encounter Details Date Type Department Care Team ([facility] st Contact Info) Description 08/16/2025 Results Follow-Up [facility] MEDICINE 230 [place] [address] Mariya Juan MD 230 [place] [address] ~PT, ~INR - ANTI COAG CLINIC, PROTHROMBIN [...] the past 12 months, has t he [employer], gas, oil or water [employer] threatened to shut off services in your [...] Info) Description 10/22/2025 9:00 AM EST Nutrition [facility] DIABETES/NUTRITION [address] [place] [phone] 230 [place], [place] [phone] 10/22/2025 11:15 AM EST Office Visit [facility] MEDICINE [address] [place] [address] [phone] Mariya Juan MD 230 [place], [place] [phone] 12/09/2025 10:30 AM EST Office Visit [facility] OPTOMETRY 267 [place], [place] [phone] Ernestina Gayle, OD [address] [place], [place] [phone] documented as of this encounter Visit Diagnoses Not on filedocumented in this encounter Additional Health Concerns Assessment Noted Time PHQ-9 Depression Total Score: 14 025 11:30 AM EDT documented as of this encounter Care Teams Ship Runner Relationship Specialty Start Date End Date Mariya Juan MD [address] [place] [address] [phone] PCP - General Internal Medicine 04/28/23 documented as of this encounter
--- OUTSIDE RECORDS SUMMARY | 2025-10-17 21:29 | XMS_ITS | Data Portability ---
Author Organization [place] [facility], Allergy Address [address] [place] [phone] Care Team Providers Care Harvesting Manager Name Role Phone NAME, KEIRA Primary Care Provider [phone] Assessment Encounter Date Assessment Date Assessment LastModified [...] worsen, may consider tonsillectomy in the future. [email or web address] Not available 04/11/2024 15:22:38 Plan of Treatment Reminders Order Date Submit Date Provider Last Modified By Organization Details Last Modified Time Details Appointments None recorded. Lab None recorded. Referral None recorded. Procedures None recorded. Surgeries None recorded. Imaging None recorded. Medication Orders Flonase Allergy Relief 50 mcg/actua tion nasal spray,darrin pension 024 024 [id number], [address] [place], [place], [phone], 15:20:32 Patient TargetsNo targets recorded. Patient InstructionsNo instructions recorded. Reason for Referral None Reported. 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 Procedures Surgical History Date Name Laterality Status Provider Name and Address Organization Details Recorded Time Heart Surgery completed Daphnie Welsh [place] - [facility] 04/11/2024 15:01:33 Imaging Results None recorded. Procedure [...] Updated DateTime 04/11/2024 190.5 cm 30 kg/m2 175811.17 g Daphnie Welsh [place] - [facility] 04/11/2024 14:58:50 Date Recorded Body height Body mass index (BMI) Body weight Provider Name and Address Organization Details Last Updated DateTime 08/30/2024 190.5 cm 30 kg/m2 251024.17 g Nelli Fishman [place] - [facility] 08/30/2024 10:37:44 Social History None recorded. Functional Status None recorded. Mental Status None recorded. Family History Nothing Reported. Medical History No medical history recorded. Past Encounters Encounter ID Performer Location Encounter Start Date Encounter Closed Date Diagnosis/Indication Diagnosis SNOMED-CT Code Diagnosis ICD10 Code Diagnosis IMO Codes Diagnosis Note [id number] CHANI KIM PA-C [facility] [address] [place] [address] 04/11/2024 14:35:25 04/11/2024 15:13:40 Amygdalolith 7870259 J35.8 Allergic rhinitis 092989 04 J30.89 [id number] EDDIE MONTES MD [facility] of [address] [address] 08/30/2024 10:28:36 08/30/2024 10:58:17 Amygdalolith 7418218 J35.8 Discourage d surgery. Recommend observatio n. [...] Roberts Member ID Guarantor Name 11/15/2024 1 [facility] - DOS ON OR AFTER 2023 - [facility] (MEDICARE REPLACEMENT/AD VANTAGE - HMO) Ludin Mendes [id number] Ludin Mendes 08/30/2024 1 [facility] - DOS ON OR AFTER 2023 - MEDICARE ADVANTAGE [place] & [place] (MEDICARE REPLACEMENT/AD VANTAGE - PPO) Ludin Mendes [id number] Ludin Mendes Notes Date Note Type Note [...] did not continue it. CHANI KIM PA-C [address] [place] [address], [phone], [facility] - [facility] 04/11/2024 15:25:28 08/30/2024 text/html ROS as noted in the HPI 38-year-old male presents for evaluation of tonsil stones. Bleeding has resolved. He has not been using flonase but finds mouth rinses helpful. He is less bothered than before. EDDIE MONTES MD [address] [place] [address], [phone], [facility] - [facility] 08/30/2024 11:00:13
--- OUTSIDE RECORDS SUMMARY | 2025-10-17 21:30 | XMS_ITS | Encounter Summary ---
Author Organization [employer] Address [address] [place] [address] 7 [place] [address] Care Team Providers Care Ragman Name Role Phone Mariya Juan MD Primary Care Pro vider Reason for Visit * Reason Onset Date Comments Med Refill 01/08/2025 Encounter Details Date Type Department Care Team ([facility] st Contact Info) Description 01/08/2025 Telephone [facility] MEDICINE 230 [place] [address] Mariya Juan MD 230 [place] [address] Med Refill Social History Tobacco Use Types [...] solution prefilled syringe To be sent to: [id number] [id number] [facility] documented in this encounter Plan of Treatment Upcoming Encounters Date Type Department Care Team ([facility] st Contact Info) Description 10/22/2025 9:00 AM EST Nutrition [facility] DIABETES/NUTRITION 230 [place], [place] [phone] Amena Fu RD 230 [place], [place] [phone] 10/22/2025 11:15 AM EST Office Visit [facility] MEDICINE [address] [place] [address] Mariya Juan MD 230 [place], [place] [phone] 12/09/2025 10:30 AM EST Office Visit [facility] OPTOMETRY [address] [place] [address] Ernestina Gayle, OD [address] [place], [place] [phone] documented as of this encounter Visit Diagnoses Not on filedocumented in this encounter Additional Health Concerns Assessment Noted Time PHQ-9 Depression Total Score: 12 024 2:22 PM EDT documented as of this encounter Care Teams Ragman Relationship Specialty Start Date End Date Mariya Juan MD 230 [place], [place] [phone] PCP - General Internal Medicine 04/28/23 documented as of this encounter
== END 2025-10-17 14:37 | disposition home or self-care (01) ==
LOC: HO.ACS 14:00
PROVIDERS: PCP Student in an Organized Health Care Education/Training Program; Visit Provider Internal Medicine Medical Oncology
DX: Z79.01 Long term (current) use of anticoagulants (principal)

== ENCOUNTER → 2025-10-17 14:00 | Outpatient (BNVA) | payer OTHER, SELFPAY | PROVIDERS: PCP Student in an Organized Health Care Education/Training Program; Visit Provider Internal Medicine Medical Oncology | DX: Z95.2 Presence of prosthetic heart valve (principal); Z51.81 Encounter for therapeutic drug level monitoring; Z79.01 Long term (current) use of anticoagulants | CPT/HCPCS: 85610; 99211 ==

== ENCOUNTER 2025-10-29 14:11 | Outpatient (AMB) | payer OTHER, SELFPAY ==
--- NOTE | 2025-10-29 14:27 | MHC.OFFVISCO ---
Intake Intake Visit Reasons: Anticoagulation Allergies hydrocodone (From VICODIN) Allergy (Unknown, Verified 10/29/25 14:15) GI UPSET Medication List - Last Reconciled 10/29/25 by Grace Mccloud RN acetaminophen 325 mg PO QID PRN 7 days acetaminophen ER (Tylenol Arthritis Pain) 1,300 mg PO Q8H PRN albuterol sulfate 90 mcg/actuation (ProAir HFA) 2 puffs inhalation Q4-6H PRN atorvastatin 20 mg PO DAILY blood pressure test kit-large As directed buprenorphine-naloxone 8-2 mg (Suboxone) 1 film sublingual BID celecoxib (Celebrex) 200 mg PO DAILY PRN coenzyme Q10 (Co Q-10) PO fluticasone propionate 50 mcg/actuation sprays intranasal PRN hydroxyzine pamoate 25 mg PO TID inhalational spacing device ([employer] [facility] spacer) As directed loratadine 10 mg PO DAILY melatonin 5 mg PO BEDTIME PRN omeprazole 20 mg PO DAILY ondansetron HCl 4 mg PO Q8H PRN polyethylene glycol 3350 (Miralax) 17 grams PO DAILY sodium chloride 0.65% (Deep Sea Nasal) sprays intranasal warfarin 7.5 mg See Protocol PO 2XW warfarin 10 mg See Protocol PO 5XW Nursing Note INR: 2.6 in therapeutic range 2.5-3.5 - Reports family has been ill URI and GI virus - mask given Medications and supplements reviewed No changes in health, diet, medications, or supplements, Denies any signs and symptoms of bleeding or bruising or clotting. Bleeding, bruising, clotting discussed Nutritional guidance given - CONT TO EAT A MIX OF FRUITS AND VEGETABLES - MAKE SURE TO HAVE WEEKLY GREENS Dose: 5MG X 3 DAYS/ 7.5MG X 4 DAYS F/U INR: 2 WEEKS Patient verbalizes understanding of instructions given Anti-Coag Initial Assessment Social Hx Patient Tobacco Use Status: Former Tobacco user Tobacco use type: Cigarette alcohol intake: never Alcohol intake frequency: does not drink Coding Level of Care Code Est Patient Level 1 Diagnoses Current use of anticoagulant therapy Z79.01 Results AMB INR Fingerstick AMB INR Fingerstick 2.6 Last Edit by Grace Mccloud RN on 10/29/25 14:24 MANUAL ENTRY Assessment & Plan Assessment & Plan (1) Current use of anticoagulant therapy: Code(s): Z79.01 - skilled nursing (current) 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
--- OUTSIDE RECORDS SUMMARY | 2025-10-29 15:26 | XMS_ITS | Encounter Summary ---
Author Organization [employer] Address [address] [facility] 7t [place] [address] Care Team Providers Care Client Services Director Name Role Phone Mariya Juan MD Primary Care Pro vider Reason for Visit * Reason Comments Med Refill Encounter Details Date Type Department Care Team ([facility] st Contact Info) Description 04/25/[address] [facility] MEDICINE 230 [place], [place] [phone] Bertha Diaz MD 230 [place], [place] [phone] Constipation, unspecified constipation type Social History Tobacco [...] the past 12 months, has t he [employer], gas, oil or water company threatened to [...] Care Team (Late st Contact Info) Description 12/09/2025 10:30 AM EST Office Visit [facility] OPTOMETRY [address] [place] [address] Irwin Ernestina, OD 267 [place] [address] 12/31/2025 11:00 AM EST Nutrition [facility] DIABETES/NUTRITION 230 [place] [address] Amena Fu, RD 230 [place] [address] documented as of this encounter Visit Diagnoses Diagnosis Constipation, unspecified constipation type documented in this encounter Additional Health Concerns Assessment Noted Time PHQ-9 Depression Total Score: 12 024 2:22 PM EDT documented as of this encounter Care Teams Client Services Director Relationship Specialty Start Date End Date Mariya Juan MD 230 [place] [address] PCP - General Internal Medicine 04/28/23 documented as of this encounter
--- OUTSIDE RECORDS SUMMARY | 2025-10-29 15:26 | XMS_ITS | Clinical Summary ---
Author Organization [employer] Address [address] [facility] 7t [place] [address] Care Team Providers Care Float Operator Name Role Phone Mariya Juan MD [...] weakness 04/28/2023 Overview (04/28/2023): Was seen at [facility] on 08/17/22 with noted nausea, diaphoresis [...] around the valve. Plan was to transfer [facility]. [place] [facility] [place] for further [...] bleed improving Has PT in home through [facility]. Assessment & Plan (04/28/2023 10:03 PM EDT): Pt completing OT soon Will refer pt to OT [facility] Core again Continue hand exercises Followup 3 month or sooner PRN with new PCP Intraparenchymal hemorrhage of brain (CMS/HCC) 0 04/28/2023 Overview (04/28/2023): Was seen at [facility] on 08/17/22 with noted nausea, diaphoresis [...] around the valve. Plan was to transfer [facility]. [place] [facility] [place] for further [...] endocarditis 11/03/2022 Overview (04/28/2023): Was seen at [facility] on 08/17/22 with noted nausea, diaphoresis [...] around the valve. Plan was to transfer [facility]. [place] [facility] [place] for further [...] Coumadin clinic, PCP and specialists Substance abuse ([facility]) 11/06/2014 Overview (04/28/2023): Last used Percocet 2013. [...] organization. Date Type Department Care Team Description 10/21/2025 Telephone [facility] [place] [address] Mariya Juan MD chartprep 10/18/2025 Orders Only [facility] [place] [address] Mariya Newsome MD Preop examination (Primary Dx) 10/17/2025 Results Follow-Up [facility] [place] [address] Mariya Juan MD ~PT, ~INR - ANTI COAG CLINIC, PROTHROMBIN TIME WHOLE BLD POC 10/17/2025 Orders Only GENERIC EXTERNAL DATA DEPARTMENT Provider, Generic External Data 10/15/2025 Telephone [facility] MEDICINE [address] [facility] [place] [address] Mariya Juan MD Care Coordination 10/15/2025 Refill [facility] MEDICINE [address] [facility] [place] [address] Mariya Jaun MD Nausea; Constipation, unspecified constipation type 10/07/2025 Results Follow-Up [facility] MEDICINE [address] [facility] [place] [address] Mariya Juan MD ~PT, ~INR - ANTI COAG CLINIC, PROTHROMBIN TIME WHOLE BLD POC 10/07/2025 Orders Only GENERIC EXTERNAL DATA DEPARTMENT Provider, Generic External Data 09/26/2025 Results Follow-Up [facility] [address] [facility] [place] [address] Mariya Juan MD ~PT, ~INR - ANTI COAG CLINIC, PROTHROMBIN TIME WHOLE BLD POC 09/25/2025 Orders Only GENERIC EXTERNAL DATA DEPARTMENT Provider, Generic External Data 09/18/2025 Telephone [facility] PEDIATRICS [address] [facility] [place] [address] Mariya Juan MD CRITICAL LAB 09/18/2025 Orders Only GENERIC EXTERNAL DATA DEPARTMENT Provider, Generic External Data 09/13/2025 Telephone [facility] MEDICINE [address] [facility] [place] [address] Mariya Juan MD Nurse Triage 09/13/2025 Refill [facility] MEDICINE [address] [facility] [place] [address] Mariya Juan MD Anxiety state 08/16/2025 Results Follow-Up [facility] MEDICINE 230 [place] [address] Mariya Juan MD ~PT, ~INR - ANTI COAG CLINIC, PROTHROMBIN TIME WHOLE BLD POC 08/16/2025 Orders Only GENERIC EXTERNAL DATA DEPARTMENT Provider, Generic External Data 08/12/2025 Travel 08/11/2025 Orders Only [facility] MEDICINE [address] [facility] [place] [address] Mariya Juan MD 08/09/2025 10:45 AM EDT Office Visit [address] [address] Mariya Juan MD Class 1 obesity due [...] arm weakness; Intraparenchymal hemorrhage of brain (CMS/HCC) ([facility]); Transaminitis 08/09/2025 Patient Outreach [address] [address] Mariya Juan MD Care Coordination (CHW outreach for SDOH PT-1 and food needs-referral completed /) 08/09/[address] [address] Mariya Juan MD Pre OP note 08/09/2025 Travel 08/08/[address] [address] Mariya Juan MD chart prep from Last 3 Months Immunizations Immunization Administration Dates Next Due DTaP 07/18/1989, 7,12/20/1986,11/19 Hep B, Adolescent or Pediatric 12/10/1998,1997,1998 Hib ([facility]) 10/20/1987 Influenza injectable quadriv alent IIV4 [...] Description 12/09/2025 10:30 AM EST Office Visit [facility] OPTOMETRY [address] [place], [place] [phone] Ernestina Gayle, OD [address] [place] [address] 12/31/2025 11:00 AM EST Nutrition [facility] DIABETES/NUTRITION 230 [place] [address] Amena Fu, RD 230 [place] [address] Health Maintenance Due Date Last Done Comments [...] PM EDT Hx of prosthetic mitral valve HEPATITIS C AB W/REFL TO HCV RNA, [...] 2:05 PM EST) Only the most recent of5 resultswithin the time period is included. Protime 27.0(H) 11.1 - 13.5 sec [facility] 10/17/2025 2:05 PM EST 10/17/2025 2:06 PM EST Generic External Data Provider LAB BLOOD ORDERAB LES Final Result Performing Organization Address [facility]/ZIP Co de Phone Number [facility] [address] [place] [phone] * (ABNORMAL) ~PT, ~INR - ANTI COAG CLINIC (10/17/2025 2:05 PM EST) Only the most recent of5 resultswithin the time period is included. Prothrombin Time INR 2.3(H) 0.9 - 1.1 [facility] Comment:METER #: [id number] TERNATIONAL NORMALIZED RATIO (INR) REFERENCE RANGES Reference [...] [facility]/ZIP Co de Phone Number [facility] [address] [place] [phone] * ECG 12 lead (08/09/2025 12:28 PM EDT) Narrative Mariya Juan MD - 08/09/2025 12:28 PM EDT EKG today HR 71,NSR, Qtc 424,only TWI in lead III ,intra-atrial /slight intraventricular conduction delay Mariya Cho MD ECG ORDERABLES F inal Result * Hepatitis C Antibody with Reflex to HCV, RNA, Quantitative, Real-Time PCR (09/14/2024 4:32 PM EST) Hepatitis C Antibody Nonreactive Nonreactive [facility] Comment:Antibodies to HCV no t detected; does not exclude early acuteHCV infection. Blood Venous blood specimen / Unknown 09/14/2024 4:32 PM EST 09/14/2024 6:05 PM EST Mariya Cho MD LAB BLOOD ORDERAB LES Final Result [facility] [address] [place] [phone] * HIV-1/2 Antigen and Antibodies, Fourth Generation, with Reflexes (09/14/2024 4:32 PM EST) Pathologist [facility] HIV AB/AG Nonreactive Nonreactive [facility] Comment:HIV-1 p24 Ag and/or HIV-1/HIV-2 Ab not detected.A test result that is nonreactive does not exclude thepossibility of exposure to or infection with HIV-1 and/orHIV-2. Nonreactive results in this assay for individualswith prior exposure to HIV-1 and/or HIV-2 may be due toantigen and antibody levels that are below the limit ofdetection of this assay.The incrediblue HIV Ag/Ab Combo assay result andsupplemental assay results should be interpreted inconjunction with the patient's clinical presentation,history and other laboratory results. If the results areinconsistent with clinical evidence, additional testing issuggested to confirm the result. Blood Venous blood specimen / Unknown 09/14/2024 4:32 PM EST 09/14/2024 6:05 PM EST us Mariya Cho MD LAB BLOOD ORDERAB LES Final Result Performing Organization Address [facility]/ZIP Co de Phone Number [facility] [address] [place] [phone] * (ABNORMAL) Lipid Panel, Standard (09/14/2024 4:23 PM EST) Triglycerides 194(H) <150 mg/dL [facility] Comment:Desirable Triglyceri de: less than 150 mg/dLBorderline High Triglyceride 150-199 mg/dLHigh Triglyceride: 200-499 mg/dLVery High Triglyceride: greater than or equal to 5OO mg/dL Cholesterol 131 <200 mg/dL [facility] Comment:Desirable Cholestero l: less than 200 mg/dLBorderline High Cholesterol: 200-239 mg/dLHigh Cholesterol: greater than 239 mg/dL LDL Cholesterol Calculated 62 <100 mg/dL [facility] Comment:Desirable LDL: less than 100 mg/dLNear Optimal/Above Optimal LDL: 110- 129 mg/dLBorderline High LDL: 130-159 mg/dLHigh LDL: 160-189 mg/dLVery High LDL: greater than or equal to 190 mg/dL HDL Cholesterol 31(L) >40 mg/dL [facility] Comment:Desirable HDL: great er than 40 mg/dL Note: This HDL assay may give artificially low results in patients with liver disease. Blood Venous blood specimen / Unknown 09/14/2024 4:23 PM EST 09/14/2024 6:05 PM EST us Mariya Cho MD LAB BLOOD ORDERAB LES Final Result Performing Organization Address City/[facility]/ZIP Co de Phone Number [facility] [address] [place] [phone] from Last 3 Months or Most Recently Relevant to Health Maintenance Insurance [place] [employer]ARE < 65 DENIS ERNANDEZ [id number] Care Teams Float Operator Relationship Specialty Start Date End Date Mariya Juan MD [address] [place] [address] PCP - General Internal Medicine 04/28/23
--- OUTSIDE RECORDS SUMMARY | 2025-10-29 15:26 | XMS_ITS | Clinical Summary ---
Author Organization [facility] Address [address] [place] [address] Phone Care Team Providers Care Operations Specialists Name Role Phone Sharon Baum MD Primary Care Provider Allergies No known active allergies Medications Buprenorphine [...] to 49 Years) Completed 04/28/2023, 02/17/[address] [place] [address] ([id number]) [facility] ([id number]) [place] ERNANDEZ [phone] Care Teams Operations Specialists Relationship Specialty Start Date End Date Sharon Baum MD [address] [place] [phone] PCP - General Internal Medicine 10/20/22
--- OUTSIDE RECORDS SUMMARY | 2025-10-29 15:26 | XMS_ITS | Encounter Summary ---
Author Organization [employer] Address [address] [place] [address] 7t [place] [address] Care Team Providers Care Digital Manager Name Role Phone Mariya Juan MD Primary Care Pro vider Encounter Details Date Type Department Care Team ([facility] st Contact Info) Description 10/07/2025 Results Follow-Up [facility] MEDICINE 230 [place] [address] Mariya Juan MD 230 [place] [address] ~PT, ~INR - ANTI COAG CLINIC, PROTHROMBIN [...] the past 12 months, has t he [employer], gas, oil or water [employer] threatened to shut off services in your [...] 10:30 AM EST Office Visit [facility] OPTOMETRY [address] [place], [place] [phone] TarErnestina ramos, OD 267 [place] [address] 12/31/2025 11:00 AM EST Nutrition [facility] DIABETES/NUTRITION 230 [place] [address] Amena Fu, SAMMI 230 [place] [address] documented as of this encounter Visit Diagnoses Not on filedocumented in this encounter Additional Health Concerns Assessment Noted Time PHQ-9 Depression Total Score: 14 025 11:30 AM EDT documented as of this encounter Care Teams Digital Manager Relationship Specialty Start Date End Date Mariya Juan MD [address] [place] [address] PCP - General Internal Medicine 04/28/23 documented as of this encounter
--- OUTSIDE RECORDS SUMMARY | 2025-10-29 15:26 | XMS_ITS | Encounter Summary ---
Author Organization [employer] Address [address] [place] [address] 7t [place] [address] Care Team Providers Care Principal Architect Name Role Phone Mariya Juan MD Primary Care Pro vider Encounter Details Date Type Department Care Team ([facility] st Contact Info) Description 10/17/2025 Results Follow-Up [facility] MEDICINE 230 [place] [address] Mariya Juan MD 230 [place] [address] ~PT, ~INR - ANTI COAG CLINIC, PROTHROMBIN [...] the past 12 months, has t he [employer], gas, oil or water [employer] threatened to shut off services in your [...] Description 12/09/2025 10:30 AM EST Office Visit [facility] OPTOMETRY [address] [place], [place] [phone] TarErnestina ramos, OD [address] [place] [address] 12/31/2025 11:00 AM EST Nutrition [facility] DIABETES/NUTRITION 230 [place] [address] Amena Fu, SAMMI [address] [place] [address] documented as of this encounter Visit Diagnoses Not on filedocumented in this encounter Additional Health Concerns Assessment Noted Time PHQ-9 Depression Total Score: 14 025 11:30 AM EDT documented as of this encounter Care Teams Principal Architect Relationship Specialty Start Date End Date Mariya Juan MD [address] [place] [phone] PCP - General Internal Medicine 04/28/23 documented as of this encounter
--- OUTSIDE RECORDS SUMMARY | 2025-10-29 15:26 | XMS_ITS | Encounter Summary ---
Author Organization [employer] Address [address] [facility] 7t [place] [address] Care Team Providers Care Piccolo Mechanic Name Role Phone Mariya Juan MD Primary Care Pro vider Reason for Visit * Reason Comments Med Refill Encounter Details Date Type Department Care Team (Late st Contact Info) Description 05/23/2023 Refill [facility] MEDICINE 230 [place], [place] [phone] Kay Dennis FNP Social History Tobacco Use [...] Department Care Team (Late Contact Info) Description 12/09/2025 10:30 AM EST Office Visit [facility] OPTOMETRY 267 [place], [place] [phone] Ernestina Gayle, OD 267 [place], [place] [phone] 12/31/2025 11:00 AM EST Nutrition [facility] DIABETES/NUTRITION 230 [place], [place] [phone] Amena Fu, SAMMI 230 [place], [place] [phone] documented as of this encounter Visit Diagnoses Not on filedocumented in this encounter Additional Health Concerns Assessment Noted Time PHQ-9 Depression Total Score: 6 04/28/20 23 2:32 PM EDT documented as of this encounter Care Teams Piccolo Mechanic Relationship Specialty Start Date End Date Mariya Juan MD 230 [place], [place] [phone] PCP - General Internal Medicine 04/28/23 documented as of this encounter
--- OUTSIDE RECORDS SUMMARY | 2025-10-29 15:26 | XMS_ITS | Data Portability ---
Author Organization [place] [facility], Allergy Address [address] [place] [phone] Care Team Providers Care Pipe Cleaner Name Role Phone NAME, KEIRA Primary [...] worsen, may consider tonsillectomy in the future. [email or web address] Not available 04/11/2024 15:22:38 Plan of Treatment Reminders Order Date Submit Date Provider Last Modified By Organization Details Last Modified Time Details Appointments None recorded. Lab None recorded. Referral None recorded. Procedures None recorded. Surgeries None recorded. Imaging None recorded. Medication Orders Flonase Allergy Relief 50 mcg/actua tion nasal spray,darrin pension 024 024 [id number], [address] [place], [place], [id number], 15:20:32 Patient TargetsNo targets recorded. Patient InstructionsNo instructions recorded. Reason for Referral None Reported. 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 Procedures Surgical History Date Name Laterality Status Provider Name and Address Organization Details Recorded Time Heart Surgery completed Daphnie Welsh [place] - [facility] 04/11/2024 15:01:33 Imaging Results None recorded. Procedure [...] Updated DateTime 04/11/2024 190.5 cm 30 kg/m2 669354.17 g Daphnie Welsh [place] [facility] 04/11/2024 14:58:50 Date Recorded Body height Body mass index (BMI) Body weight Provider Name and Address Organization Details Last Updated DateTime 08/30/2024 190.5 cm 30 kg/m2 483818.17 g Nelli Fishman [place] [facility] 08/30/2024 10:37:44 Social History None recorded. Functional Status None recorded. Mental Status None recorded. Family History Nothing Reported. Medical History No medical history recorded. Past Encounters Encounter ID Performer Location Encounter Start Date Encounter Closed Date Diagnosis/Indication Diagnosis SNOMED-CT Code Diagnosis ICD10 Code Diagnosis IMO Codes Diagnosis Note [id number] CHANI KIM PA-C [facility] [address] [place] [address] 04/11/2024 14:35:25 04/11/2024 15:13:40 Amygdalolith 9018627 J35.8 Allergic rhinitis 127759 04 J30.89 [id number] EDDIE MONTES MD [facility] of [address] [address] 08/30/2024 10:28:36 08/30/2024 10:58:17 Amygdalolith 3115574 J35.8 Discourage d surgery. Recommend observatio n. [...] Roberts Member ID Guarantor Name 11/15/2024 1 [facility] - DOS ON OR AFTER 2023 - [facility] (MEDICARE REPLACEMENT/AD VANTAGE - HMO) Ludin Mendes [id number] Ludin Mendes 08/30/2024 1 [facility] - DOS ON OR AFTER 2023 - MEDICARE ADVANTAGE [place] & [place] (MEDICARE REPLACEMENT/AD VANTAGE - PPO) Ludin Mendes [id number] Ludin Mendes Notes Date Note Type Note [...] did not continue it. CHANI KIM PA-C [address] [place] [address], [phone], [facility] - [facility] 04/11/2024 15:25:28 08/30/2024 text/html ROS as noted in the HPI 38-year-old male presents for evaluation of tonsil stones. Bleeding has resolved. He has not been using flonase but finds mouth rinses helpful. He is less bothered than before. EDDIE MONTES MD [address] [place] [address], [phone], [facility] - [facility] 08/30/2024 11:00:13
--- OUTSIDE RECORDS SUMMARY | 2025-10-29 15:26 | XMS_ITS | Encounter Summary ---
Author Organization [employer] Address [address] [facility] 7t [place] [address] Care Team Providers Care Rotating Equipment Specialist Name Role Phone Kay Dennis TECHNOLOGY APPLICATIONS CONSULTANT Primary Care Provider Mariya Lombardi MD Primary Care Pro vider Reason for Visit * Reason Onset Date Comments Durable Medical Equipment 02/25/2023 Encounter Details Date Type Department Care Team (Late st Contact Info) Description 02/25/2023 Telephone [facility] MEDICINE [address] [place] [address] Kay Dennis, TECHNOLOGY APPLICATIONS CONSULTANT Durable Medical Equipment Social History Tobacco Use [...] not so long ago. Please sent to [email or web address] If any questions please contact Tammy at [phone] documented in this encounter Plan of Treatment Upcoming Encounters Date Type Department Care Team (Late st Contact Info) Description 12/09/2025 10:30 AM EST Office Visit [facility] OPTOMETRY [address] [place] [address] TarErnestina ramos, OD [address] [place] [address] 12/31/2025 11:00 AM EST Nutrition [facility] DIABETES/NUTRITION 230 [place] [address] Amena Fu, SAMMI [address] [place] [address] documented as of this encounter Visit Diagnoses Not on filedocumented in this encounter Care Teams Rotating Equipment Specialist Relationship Specialty Start Date End Date Kay Dennis FNP PCP - General Family Medicine 07/05/22 04/27/23 Mariya Juan MD 230 [place], [place] [phone] PCP - General Internal Medicine 04/28/23 documented as of this encounter
--- OUTSIDE RECORDS SUMMARY | 2025-10-29 15:26 | XMS_ITS | Encounter Summary ---
Author Organization [employer] Address [address] [place] [address] 7 [place] [address] Care Team Providers Care Setter Induction Heating Equipment Name Role Phone Mariya Juan MD Primary Care Pro vider Reason for Visit * Reason Onset Date Comments Med Refill 01/08/2025 Encounter Details Date Type Department Care Team ([facility] st Contact Info) Description 01/08/2025 Telephone [facility] MEDICINE [address] [place] [address] Mariya Juan MD 230 [place] [address] Med Refill Social History Tobacco Use Types [...] solution prefilled syringe To be sent to: [id number] [facility] [address] [place] [address] AT [facility] documented in this encounter Plan of Treatment Upcoming Encounters Date Type Department Care Team ([facility] st Contact Info) Description 12/09/2025 10:30 AM EST Office Visit [facility] OPTOMETRY [address] [place] [address] Ernestina Gayle, OD [address] [place] [address] 12/31/2025 11:00 AM EST Nutrition [facility] DIABETES/NUTRITION 230 [place], [place] [phone] Amena Fu [address] [place] [address] documented as of this encounter Visit Diagnoses Not on filedocumented in this encounter Additional Health Concerns Assessment Noted Time PHQ-9 Depression Total Score: 12 024 2:22 PM EDT documented as of this encounter Care Teams Setter Induction Heating Equipment Relationship Specialty Start Date End Date Mariya Juan MD 230 [place] [address] PCP - General Internal Medicine 04/28/23 documented as of this encounter
--- OUTSIDE RECORDS SUMMARY | 2025-10-29 15:26 | XMS_ITS | Encounter Summary ---
Author Organization [email or web address] Address [address] [place] [address] 7t [place] [address] Care Team Providers Care Business Analytics Manager Name Role Phone Mariya Juan MD Primary Care Pro vider Encounter Details Date Type Department Care Team ([facility] st Contact Info) Description 09/26/2025 Results Follow-Up [facility] MEDICINE 230 [place] [address] Mariya Juan MD 230 [place] [address] ~PT, ~INR - ANTI COAG CLINIC, PROTHROMBIN [...] the past 12 months, has t he [employer], gas, oil or water [employer] threatened to shut off services in your [...] Description 12/09/2025 10:30 AM EST Office Visit [facility] OPTOMETRY [address] [place], [place] [phone] TarErnestina ramos, OD [address] [place] [address] 12/31/2025 11:00 AM EST Nutrition [facility] DIABETES/NUTRITION [address] [place] [address] Amena Fu, SAMMI [address] [place] [address] documented as of this encounter Visit Diagnoses Not on filedocumented in this encounter Additional Health Concerns Assessment Noted Time PHQ-9 Depression Total Score: 14 025 11:30 AM EDT documented as of this encounter Care Teams Business Analytics Manager Relationship Specialty Start Date End Date Mariya Juan MD [address] [place] [address] PCP - General Internal Medicine 04/28/23 documented as of this encounter
--- OUTSIDE RECORDS SUMMARY | 2025-10-29 15:26 | XMS_ITS | Encounter Summary ---
Author Organization [employer] Address [address] [facility] [address] [place] [address] Care Team Providers Care Director Counseling Bureau Name Role Phone Mariya Juan MD Primary Care Pro vider Reason for Visit * Reason Onset Date Comments Med Refill 04/20/2024 Encounter Details Date Type Department Care Team ([facility] st Contact Info) Description 04/20/2024 Telephone [facility] MEDICINE [address] [place], [place] [phone] Mariya Juan MD [address] [place] [address] Med Refill Social History Tobacco Use Types [...] got INR drawn. According to the administrative assistant receptionist the pt was to come for [...] solution prefilled syringe To be sent to: [id number] [id number] [facility] documented in this encounter Plan of Treatment Upcoming Encounters Date Type Department Care Team (Late st Contact Info) Description 12/09/2025 10:30 AM EST Office Visit [facility] OPTOMETRY [address] [place] [address] Ernestina Gayle, OD [address] [place] [address] 12/31/2025 11:00 AM EST Nutrition [facility] DIABETES/NUTRITION [address] [place] [address] Amena Fu, RD [address] [place] [address] documented as of this encounter Visit Diagnoses Not on filedocumented in this encounter Additional Health Concerns Assessment Noted Time PHQ-9 Depression Total Score: 6 04/28/20 23 2:32 PM EDT documented as of this encounter Care Teams Director Counseling Bureau Relationship Specialty Start Date End Date Mariya Juan MD [address] [place] [id number] PCP - General Internal Medicine 04/28/23 documented as of this encounter
--- OUTSIDE RECORDS SUMMARY | 2025-10-29 15:26 | XMS_ITS | Encounter Summary ---
Author Organization [employer] Address [address] [facility] [address] [place] [address] Care Team Providers Care New Account Interviewer Name Role Phone Kay Dennis Primary Care Provider Mariya Lombardi MD Primary Care Pro vider Encounter Details Date Type Department Care Team (Late Contact Info) Description 12/16/2022 Orders Only [facility] MEDICINE [address] [place], [place] [phone] Aida Villegas LPN Social History Tobacco Use [...] Description 12/09/2025 10:30 AM EST Office Visit [facility] OPTOMETRY [address] [place], [place] [phone] Ernestina Gayle, OD [address] [place] [address] 12/31/2025 11:00 AM EST Nutrition [facility] DIABETES/NUTRITION [address] [place] [address] Amena Fu, SAMMI [address] [place] [address] documented as of this encounter Procedures Procedure Name Priority Date/Time Associated Diagnosis Comments PROTHROMBIN TIME WHOLE BLD POC Routine 12/16/2022 2:35 PM EST ~PT, ~INR - ANTI COAG CLINIC Routine 12/16/2022 2:35 PM EST documented in this encounter Results * (ABNORMAL) PROTHROMBIN TIME WHOLE BLD POC (12/16/2022 2:35 PM EST) Protime 45.7(H) 11.1 - 13.5 sec [facility] 12/16/2022 2:35 PM EST 12/16/2022 2:36 PM EST us [facility] External Provider LAB BLO OD ORDERABLES Final Result [facility] [address] [place] [address] [phone] * (ABNORMAL) ~PT, ~INR - ANTI COAG CLINIC (12/16/2022 2:35 PM EST) Prothrombin Time INR 3.8(H) 0.9 - 1.1 [facility] Comment:METER #: [id number] TERNATIONAL NORMALIZED RATIO (INR) REFERENCE RANGES Reference [...] 2:35 PM EST 12/16/2022 2:36 PM EST us [facility] External Provider LAB BLO OD ORDERABLES Final Result [facility] [address] [place] [address] [phone] documented in this encounter Visit Diagnoses Not on filedocumented in this encounter Care Teams New Account Interviewer Relationship Specialty Start Date End Date Kay Dennis FNP PCP - General Family Medicine 07/05/22 04/27/23 Mariya Juan MD [address] [place] [phone] PCP - General Internal Medicine 04/28/23 documented as of this encounter
[2025-10-30 08:59] LABS: Prothrombin Time Whole Bld POC 31.3 sec (11.1-13.5); ~PT, ~INR - Anti Coag Clinic 2.6 (0.9-1.1)
== END 2025-10-29 14:33 | disposition home or self-care (01) ==
LOC: HO.ACS 14:11
PROVIDERS: PCP Student in an Organized Health Care Education/Training Program; Visit Provider Internal Medicine Medical Oncology
DX: Z79.01 Long term (current) use of anticoagulants (principal)

== ENCOUNTER → 2025-10-29 14:11 | Outpatient (BNVA) | payer OTHER, SELFPAY | PROVIDERS: PCP Student in an Organized Health Care Education/Training Program; Visit Provider Internal Medicine Medical Oncology | DX: Z95.2 Presence of prosthetic heart valve (principal); Z51.81 Encounter for therapeutic drug level monitoring; Z79.01 Long term (current) use of anticoagulants | CPT/HCPCS: 85610; 99211 ==